=== PATIENT | female | born 1940 | race Caucasian/White ===

== ENCOUNTER → 2022-08-15 | Outpatient (CLI) | payer MEDICARE, SELFPAY ==
[2022-08-15 13:02] LABS: Troponin-I HS 7 pg/mL (3.0-54.0)
== END | disposition home or self-care (01) ==
PROVIDERS: PCP Family Medicine
DX: R07.9 Chest pain, unspecified (principal)
CPT/HCPCS: 84484

== ENCOUNTER → 2022-11-15 | Outpatient (CLI) | payer MEDICARE, SELFPAY ==
[2022-11-15 15:02] LABS: Erythrocyte Sedimentation Rate 16 mm/hr (0-30)
[2022-11-15 15:21] LABS: AST(SGOT) 19 U/L (15-37); Alanine Aminotransfer ALT/SGPT 24 U/L (13-56); Albumin, Serum 3.7 g/dL (3.2-5.0); Alkaline Phosphatase 47 U/L (45-117); Anion Gap 5 (5-15); BUN 22 mg/dL (7-18); CRP < 2.90 mg/L (0.0-3.0); Calcium,Total 9.5 mg/dL (8.5-10.1); Chloride 107 mmol/L (98-107); Creatinine, Serum 1.05 mg/dL (0.55-1.02); EST Glomerular Filtration Rate 53 mL/min (>60); Est Glom Filt Rate - Afr Amer 64 mL/min (>60); Ferritin 105 ng/mL (8-252); Globulin 3.7 g/dL (2.2-4.2); Glucose 85 mg/dL (74-106); LDH 182 U/L (84-246); Potassium 4.4 mmol/L (3.5-5.1); Protein, Total 7.4 g/dL (6.4-8.2); Sodium Level 139 mmol/L (136-145); Thyroid Stim Hormone (TSH) 1.82 uIU/mL (0.358-3.74)
[2022-11-19 15:08] LABS: Endomysial Antibody IgA Negative (Negative); Immunoglobulin A 295 mg/dL (64-422); Perinuclear Ab (P-ANCA) <1:20 titer (Neg:<1:20); t-Transglutaminase IgA 4 U/mL (0-3)
== END | disposition home or self-care (01) ==
LOC: LAB 13:51
PROVIDERS: PCP Family Medicine; Referring Provider Internal Medicine Gastroenterology; Visit Provider Internal Medicine Gastroenterology
DX: R14.0 Abdominal distension (gaseous) (principal); I10 Essential (primary) hypertension
CPT/HCPCS: 36415; 80053; 82728; 82784; 83516; 83615; 84443; 85652; 86140; 86255; 86256

== ENCOUNTER → 2022-11-18 | Outpatient (CLI) | payer MEDICARE, SELFPAY ==
[2022-11-25 05:06] LABS: Pancreatic Elastase, Fecal 74 (>200)
[2022-11-28 00:07] LABS: Calprotectin, Stool 83 ug/g (0-120); Fats, Neutral Normal (.); Fats, Total Increased (.)
== END | disposition home or self-care (01) ==
LOC: LABSPEC 12:21
PROVIDERS: PCP Family Medicine; Referring Provider Internal Medicine Gastroenterology; Visit Provider Internal Medicine Gastroenterology
DX: R14.0 Abdominal distension (gaseous) (principal); R19.7 Diarrhea, unspecified; K58.9 Irritable bowel syndrome, unspecified
CPT/HCPCS: 82274; 82653; 82705; 83630; 83993; 87177; 87209; 87329; 87493; 87506

== ENCOUNTER → 2022-12-30 | Outpatient (CLI) | payer MEDICARE, SELFPAY ==
--- NOTE | 2022-12-30 13:15 | CT_ITS ---
STUDY: CT ABDOMEN AND PELVIS WITH CONTRAST REASON FOR EXAM: Female, 82 years old. Rule out Hiatal Hernia RADIATION DOSAGE (If Supplied By Facility): CTDIvol = ( 16.50 ) mGy, DLP = ( 927.38 ) mGycm TECHNIQUE: Transaxial images were obtained from the dome of the diaphragm to the symphysis pubis without oral contrast. Oral and amp; IV Readi-CAT and amp; 100mL Isovue-300 was administered. Sagittal and coronal images were reconstructed. Individualized dose optimization techniques were used for this CT. COMPARISON: None. FINDINGS: Mild fibrotic changes in the lung bases. Mild cardiomegaly. Small effusion. Normal liver. Normal gallbladder. Distended common bile duct measuring 1.2 cm across, correlate with liver function tests. Normal spleen. Normal pancreas. Normal bilateral adrenal glands. No acute abnormalities of the kidneys. Numerous left renal cysts, measuring as much as 8 cm across. Normal visualized stomach. Normal small intestine. Normal colon. There is non-visualization of the appendix. Normal abdominal aorta. Normal inferior vena cava. Normal retroperitoneum. Prominent prolapse of the urinary bladder. There is absence of the uterus consistent with a prior hysterectomy. Normal abdominal wall. There are diffuse degenerative changes of the visualized lumbar spine. Mild scoliosis to the left. CT/Abdomen/Pelvis WITH Contrast IMPRESSION: Prominent bladder prolapse. Dilated common bile duct for which correlation with liver function tests recommended. Electronically Signed: Gaurang Jay MD at 22:42 EDT ,
== END | disposition home or self-care (01) ==
LOC: CT 13:14
PROVIDERS: PCP Family Medicine; Referring Provider Internal Medicine Gastroenterology; Visit Provider Internal Medicine Gastroenterology
DX: R14.0 Abdominal distension (gaseous) (principal); R07.9 Chest pain, unspecified
CPT/HCPCS: 74177; Q9967

== ENCOUNTER 2023-01-29 15:16 | Emergency (ER) | payer MEDICARE, SELFPAY ==
[2023-01-29 15:17] VITALS: BP 153/75; PULSE 52; RESP 12; TEMP 36.6; O2SAT 96; BMI 30.2
--- NOTE | 2023-01-29 15:31 | ED.VIS.CHEST ---
HPI History of Present Illness Chief Complaint: Weakness Narrative Narrative: 82-year-old female presenting with pain that she had between her shoulder blades after her stress test today. She states that she had a stress test today because she was sent by Dr. Bhatt. She reports that she has not had any chest pain for months but has had on and off chest pain for years. She has always had lower back pain but upper back pain started after the stress test. I asked her if her stress test went well and she states she thinks so but she was short of breath and having the back pain afterwards. I asked her if she told anybody that she was experiencing the symptoms and she cannot recall if she did or did not. I asked her if the person performing the stress test expressed any concern and she cannot recall if she did or did not. She states that she believes it was due to the contrast dye, but cannot remember having a conversation about whether or not that was an issue. She says she was sent home. She developed a headache and felt very tired after her stress test. The back pain that she had in the center of her back lasted about 2-1/2 hours it is now gone. She has not had a fever. She does not feel nauseous. She denies lightheadedness or dizziness. She states she feels well but her family member took her blood pressure and told her she needed to the emergency room so they called 911. [facility] Medical History Acute gastritis without mention of hemorrhage Age related cataract Arthritis of both knees Backache Diverticulosis Elevated hemoglobin A1c Epigastric pain GERD (gastroesophageal reflux disease) Hypoglycemia IBS (irritable bowel syndrome) Low vitamin B12 level Macular degeneration, left eye Numbness and tingling of right leg Overactive bladder Upper abdominal pain Home Medications metoprolol tartrate 25 mg tablet 25 mg PO DAILY 08/14/14 [History Last Taken Unknown] albuterol sulfate 90 mcg/actuation aerosol inhaler (Ventolin HFA) 18 g IH 4X/DAY PRN PRN sob ##1 08/15/14 [Rx Last Taken Unknown] azithromycin 500 mg tablet (Zithromax) 500 mg PO DAILY #5 tabs 08/15/14 [Rx Last Taken Unknown] zolpidem 5 mg tablet 5 mg PO QHS PRN PRN insomnia ##14 08/15/14 [Rx Last Taken Unknown] cyanocobalamin (vitamin B-12) 500 mcg tablet 500 mcg PO DAILY 09/04/22 [History Last Taken Unknown] doxazosin 1 mg tablet 1 mg PO DAILY 09/04/22 [History Last Taken Unknown] lisinopril 40 mg tablet 40 mg PO DAILY 09/04/22 [History Last Taken Unknown] meloxicam 15 mg tablet 15 mg PO DAILY 09/04/22 [History Last Taken Unknown] omeprazole 40 mg capsule,delayed release 40 mg PO DAILY 09/04/22 [History Last Taken Unknown] rosuvastatin 20 mg tablet 20 mg PO DAILY 09/04/22 [History Last Taken Unknown] tolterodine 4 mg capsule,extended release 24 hr (Detrol LA) 4 mg PO DAILY 09/04/22 [History Last Taken Unknown] gxbqrq-[id number]-wxyuzin 36,000-114,000-180,000 unit capsule,delay rel (Creon) 2 cap PO TID 4 weeks #168 caps 01/08/23 [Rx Last Taken Unknown] doxazosin 2 mg tablet 2 mg PO DAILY 01/29/23 [History Last Taken Unknown] Allergy/AdvReac Type Severity Reaction Status Date / Time adhesive tape Allergy Intermediate Other Verified 09/04/22 14:25 codeine Allergy Hives Verified 09/04/22 14:25 Surgical History S/P anterior colporrhaphy S/P total abdominal hysterectomy Social History Smoking Status: Former smoker quit date: 08/13/14 pack-years: 1 alcohol intake: never ROS ROS ED Constitutional Constitutional ED: Denies chills or fever(s) Eyes Eyes: Denies blurry vision or change in vision ENT ENT ED: Denies rhinorrhea or sore throat Cardiovascular Cardiovascular: Denies chest pain Respiratory/Chest Respiratory/Chest: Denies cough or dyspnea Gastrointestinal Gastrointestinal: Denies abdominal pain, nausea or vomiting Genitourinary Genitourinary ED: Denies dysuria or hematuria Integumentary Denies abscess or Abrasions Neurologic Neurologic: Reports headache(s); Denies paresthesias or weakness Psychiatric Psychiatric: Denies anxiety or depression EXAM Physical Exam Const Vital Signs: 01/29/23 15:17 01/29/23 15:32 01/29/23 18:32 Temperature 97.8 F Temperature Source Temporal Pulse Rate 52 L 52 L Respiratory Rate 12 18 Blood Pressure 153/75 H 138/70 H Blood Pressure Mean 101 Pulse Ox 96 Oxygen Delivery Method Room Air Room Air Positive well nourished General Appearance ED: NAD HEENT Reports moist mucous membranes Eyes PERRL and EOMs intact bilaterally Neck no lymphadenopathy Chest Wall inspection of chest normal and palpation of chest normal Resp normal respiratory effort and clear to auscultation bilaterally Auscultation: Negative for rales, rhonchi or wheezes Cardio regular rate and regular rhythm Extremity normal to inspection Neuro oriented x3 and CN's II-XII intact bilaterally Sensorium / Orientation: awake and alert Psych mental status grossly normal Skin no rashes or lesions noted and no wounds Heart Score History: Slightly/Non-Suspicious ECG: Normal Age: >/= 65 years Risk Factors: >/= 3 Risk Factors or History of CAD Score: 4 MDM MDM MDM Narrative Medical decision making narrative: Differential includes acute coronary syndrome, CHF, pneumonia, hypertension, anemia, dehydration, electrolyte abnormalities, allergic reaction to contrast dye. CBC was obtained to assess white blood cell count, hemoglobin, platelets. BMP to assess renal function, electrolytes, glucose. High-sensitivity troponin and EKG to assess for ischemia. BNP to assess for CHF. Chest x-ray was obtained to rule out pneumonia or CHF. This was negative on my interpretation. EKGWas normal sinus rhythm with a ventricular rate of 60 bpm without sign of ischemic change or ectopy on my interpretation. CBC and BMP are unremarkable. High-sensitivity troponin 6 and delta troponin 6 therefore there is no significant interval change. BNP within normal limits. After discussion with the patient at length and family they believe they might have an some kind of reaction to the contrast dye earlier I do not see any evidence of allergic reaction. Her creatinine was slightly elevated today. Patient is safe for discharge home at this point. I did review her stress test which was normal earlier. Return precautions were discussed. Impression: 1. Weakness 2. Headache Lab Data Attestation: I reviewed the patient's lab results. Labs: Laboratory Results - last 24 hr 01/29/23 01/29/23 15:30 17:30 WBC 9.2 RBC 4.80 Hgb 13.9 Hct 42.3 MCV 88.1 MCH 29.0 MCHC 32.9 RDW Std Deviation 44.1 H RDW Coeff of Betty 13.6 Plt Count 234 MPV 10.3 Immature Gran % (Auto) 1.500 H Neut % (Auto) 68.3 Lymph % (Auto) 18.9 L Kinney % (Auto) 8.6 Eos % (Auto) 2.4 Baso % (Auto) 0.3 Absolute Neuts (auto) 6.3 Absolute Lymphs (auto) 1.74 Nucleated RBC % 0 Sodium 137 Potassium 4.6 Chloride 102 Carbon Dioxide 29.0 Anion Gap 6 BUN 35 H Creatinine 1.10 H Estim Creat Clear Calc 30.65 Est GFR (MDRD) Af Amer 61 Est GFR (MDRD) Non-Af 50 L BUN/Creatinine Ratio 31.8 H Glucose 113 H Calcium 9.4 Troponin I High Sens 6 6 B-Natriuretic Peptide 49.3 Radiography Diagnostic Testing: Clinical Impression(s) from Imaging Studies Chest X-Ray 01/29/23 15:51 IMPRESSION: No radiographic evidence of acute cardiopulmonary disease. Electronically Signed: Krupa Elaine MD at 16:32 EDT , Discharge Plan Triage Chief Complaint: Weakness ED Provider: Flynn Castillo Dx/Rx/DC Orders Instructions: ED Weakness (Uncertain Cause) Prescriptions: No Action rosuvastatin 20 mg tablet 20 mg PO DAILY tolterodine [Detrol LA] 4 mg capsule,extended release 24hr 4 mg PO DAILY doxazosin 1 mg tablet 1 mg PO DAILY cyanocobalamin (vitamin B-12) 500 mcg tablet 500 mcg PO DAILY meloxicam 15 mg tablet 15 mg PO DAILY Hold Instructions: Order Completed omeprazole 40 mg capsule,delayed release(DR/EC) 40 mg PO DAILY lisinopril 40 mg tablet 40 mg PO DAILY metoprolol tartrate 25 MG tablet 25 mg PO DAILY Patient Comments: heart azithromycin [Zithromax] 500 MG tablet 500 mg PO DAILY Qty: 5 0RF Hold Instructions: Order Completed Patient Comments: antibiotic albuterol sulfate [Ventolin HFA] 18 GM HFA aerosol inhaler 18 g IH 4X/DAY PRN PRN (Reason: sob) Qty: 1 0RF Hold Instructions: Order Completed Patient Comments: shortness of breath zolpidem 5 MG tablet 5 mg PO QHS PRN PRN (Reason: insomnia) Qty: 14 0RF Hold Instructions: Order Completed Patient Comments: sleep doxazosin 2 mg tablet 2 mg PO DAILY Patient Comments: TAKE 1 TABLET BY MOUTH EVERY DAY Creon 36,000-114,000- 180,000 unit capsule,delayed release(DR/EC) 2 cap PO TID 28 Days Qty: 168 4RF Rx Instructions: administer with meals and/or snacks Primary Care Provider: Dustin Bhatt Referrals: Dustin Bhatt MD [Primary Care Provider] - Disposition Disposition: Home, Self Care Discharge Date/Time: 01/29/23 18:36
[2023-01-29 15:43] LABS: Absolute Lymphocyte Count 1.74 X10^3/uL (0.83-4.51); Absolute Neutrophil Count 6.3 X10^3/uL (2.0-7.7); Basophil# 0.03 X10^3/uL; Basophil% 0.3 % (0-1); Eosinophil# 0.22 X10^3/uL; Eosinophils% 2.4 % (0-5); Hematocrit 42.3 % (37-47); Hemoglobin 13.9 g/dL (12.0-15.0); Lymphocyte # 1.74 X10^3/ul (0.83-4.51); Lymphocyte % 18.9 % (19-41); Mean Corp Hgb Conc 32.9 g/dL (32-36); Mean Corpuscular Volume 88.1 fL (81-99); Mean Platelet Vol. 10.3 fl (6.2-12.0); Monocyte# 0.79 X10^3/uL; Monocyte% 8.6 % (0-10); NRBC Flagged by Analyzer 0 % (0-5); Neutrophil # 6.27 X10^3/uL (2.7-7.7); Neutrophil % 68.3 % (47-70); Platelet Count 234 K/mm3 (150-450); RBC Distribution Width CV 13.6 % (11.6-14.6); RBC Distribution Width SD 44.1 fl (35.1-43.9); White Blood Count 9.2 K/mm3 (4.4-11.0)
[2023-01-29] MEDS: Aspirin 81 MG TAB.CHEW 324 MG PO (15:47)
--- NOTE | 2023-01-29 15:51 | RAD_ITS ---
INDICATION: chest pain EXAMINATION/TECHNIQUE: X-RAY - XR Chest 1 View COMPARISON: Aug 14 2014 FINDINGS: LINES/DEVICES: None. LUNGS: Subsegmental atelectasis in the lung bases more prominent in the left lower lobe. MEDIASTINUM AND CARDIOVASCULAR STRUCTURES: Cardiac silhouette not enlarged. Central airways and mediastinal contour are unremarkable. BONES AND SOFT TISSUES: Unremarkable. RAD/Chest 1 View (Portable) IMPRESSION: No radiographic evidence of acute cardiopulmonary disease. Electronically Signed: Krupa Elaine MD at 16:32 EDT ,
[2023-01-29 16:04] LABS: Anion Gap 6 (5-15); BUN 35 mg/dL (7-18); BUN/Creat Ratio 31.8 RATIO (10-20); Calcium,Total 9.4 mg/dL (8.5-10.1); Chloride 102 mmol/L (98-107); EST Glomerular Filtration Rate 50 mL/min (>60); Est Glom Filt Rate - Afr Amer 61 mL/min (>60); Estimated Creatinine Clearance 30.65 ml/min; Glucose 113 mg/dL (74-106); Potassium 4.6 mmol/L (3.5-5.1); Sodium Level 137 mmol/L (136-145); Troponin-I HS (w/2H Reflex) 6 pg/mL (3.0-54.0)
[2023-01-29 16:08] LABS: BNP,B-Type NATRIURETIC PEPTIDE 49.3 pg/mL (0-100)
[2023-01-29 17:38] LABS: Reflex Troponin-HS? (from REC) Y
--- NOTE | 2023-01-29 17:51 | ED.RN ---
THIS NURSE WENT IN AND TALKED WITH PT AND FAMILY. THEY HAD VOICED CONCERNS TO [employer]. FIRST THEY REQUESTED ANOTHER DR AND IT WAS DISCUSSED REGARDING THEIR CONCERNS. EXPLAINED TEST AND PROCESSES WITH IN THE DEPARTMENT AND THE OBSTACLES AND DELAYS THAT OCCUR. EXPLAINED THE NURSE DID COME DRAW THE TROPONIN SOON SHE WAS ABLE. FAMILY AND PT SEEMED TO BE ACCEPTING AND MORE UNDERSTANDING AFTER THE DISCUSSION. PT IS RESTING WITH NO DISTRESS BUT STATES SHE DOES WANT TO GO HOME. AGAIN EXPLAINED THE REMAINING TEST RESULT WE ARE WAITING FOR AND PT VERBALIZED UNDERSTANDING
[2023-01-29 18:08] LABS: Troponin-I HS 6 pg/mL (3.0-54.0)
[2023-01-29 18:32] VITALS: BP 138/70; PULSE 52; RESP 18
== END 2023-01-29 18:36 | disposition home or self-care (01) ==
PROVIDERS: Emergency Provider Student in an Organized Health Care Education/Training Program; PCP Family Medicine; Visit Provider Student in an Organized Health Care Education/Training Program
DX: R53.1 Weakness (principal); I20.9 Angina pectoris, unspecified; R51.9 Headache, unspecified; R06.02 Shortness of breath; R07.9 Chest pain, unspecified; R00.2 Palpitations; Z87.891 Personal history of nicotine dependence; Z79.899 Other long term (current) drug therapy
CPT/HCPCS: 71045; 78452; 80048; 83880; 84484; 85025; 93005; 93017; 99285; A9500; A4216; J2785

== ENCOUNTER → 2023-01-29 | Outpatient (CLI) | payer MEDICARE, SELFPAY ==
--- NOTE | 2023-01-29 14:32 | STRESSREP ---
Stress Test Report Date: 01/29/2023 Procedure: Pharmacologic stress nuclear imaging study Indications: Chest pain Consent: Per the patient Procedure: The patient underwent pharmacologic (Regadenoson 0.4mg ) evaluation with a peak heart rate of 83 beats per minute (60%predicted maximal heart rate) and a peak blood pressure of 140/82 mmHg. The baseline ECG demonstrated sinus rhythm. The peak pharmacologic ECG demonstrated no ischemic change. There were no cardiac dysrhythmias pretest, during pharmacologic infusion, or recovery. There was no complaint of chest discomfort during pharmacologic infusion or recovery. The patient was injected with 14 millicuries of technetium 99m Cardiolite and subsequently rest SPECT Cardiolite nuclear imaging was obtained in the horizontal long, vertical long, and short axis views. The patient underwent pharmacologic (Regadenoson) evaluation. The patient was injected with 43.8 millicuries of technetium 99m Cardiolite and subsequently stress SPECT Cardiolite nuclear imaging was obtained in the horizontal long, vertical long, and short axis views. A gated Cardiolite study at peak stress was obtained. The examination was stopped secondary to completion of protocol. Rest and stress SPECT Cardiolite nuclear imaging status post realignment, normalization, and attenuation correction demonstrate no fixed or reversible perfusion defects. Possible left ventricular hypertrophy. Small LV cavity.. There is end systolic thickening and brightening. The gated Cardiolite study demonstrates myocardial thickening and inward wall motion. The reported LVEF is 74%. Impression: 1. Pharmacologic (Regadenoson) evaluation 2. Peak pharmacologic ECG with no ischemic changes. 3. There were no cardiac dysrhythmias pretest, during pharmacologic infusion, or recovery. 5. No fixed or reversible perfusion defects. Possible left ventricular hypertrophy. Small LV cavity.. 6. The gated Cardiolite study reports an LVEF of 74%. This note was generated with [employer] software. It may contain incorrect words, spelling, and punctuation that were not noted in checking the note before signing.
== END | disposition home or self-care (01) ==
LOC: CVS 07:21
PROVIDERS: PCP Family Medicine; Referring Provider Family Medicine; Visit Provider Family Medicine
DX: R06.02 Shortness of breath (principal); I20.9 Angina pectoris, unspecified; R07.9 Chest pain, unspecified; R00.2 Palpitations
CPT/HCPCS: 78452; 93017; A9500; A4216; J2785

== ENCOUNTER → 2024-01-06 | Outpatient (CLI) | payer MEDICARE, MEDICAID, SELFPAY ==
--- NOTE | 2024-01-08 15:26 | STRESSREP_ITS ---
Stress Test Report Date: 01/06/2024 Procedure: Pharmacologic stress nuclear imaging study Indications: Chest pain Consent: Per the patient Procedure: The patient underwent pharmacologic (Regadenoson) evaluation with a peak heart rate of 73 beats per minute (53%predicted maximal heart rate) and a peak blood pressure of 138/86 mmHg. The baseline ECG demonstrated normal sinus rhythm. EKG during lexiscan infusion revealed no significant ischemic changes. EKG post infusion revealed no significant ischemic changes [There were no cardiac dysrhythmias pretest, during pharmacologic infusion, or recovery]. [There was no complaint of chest discomfort during pharmacologic infusion or recovery]. The examination was discontinued secondary to completion of protocol. Impression: 1. Lexiscan stress test test is negative for Lexiscan infusion induced EKG changes of ischemia. 2. Lexiscan stress test test is negative for Lexiscan infusion induced chest pain. 3. Results of the nuclear portion of the test is as below Myocardial perfusion imaging study: Technique: The patient was injected with 12 millicuries of technetium 99m Cardiolite and subsequently rest SPECT Cardiolite nuclear imaging was obtained in the horizontal long, vertical long, and short axis views. The patient underwent pharmacologic [Regadenoson 0.4mg] evaluation. Please see above for details. The patient was injected with 34.9 millicuries of technetium 99m Cardiolite and subsequently stress SPECT Cardiolite nuclear imaging was obtained in the horizontal long, vertical long, and short axis views. A gated Cardiolite study at peak stress was obtained. Interpretation: Rest and stress SPECT Cardiolite nuclear imaging status post realignment, normalization, and attenuation correction demonstrate no evidence of significant ischemia or infarction. Gated images reveal no significant regional wall motion abnormalities. The reported LVEF is greater than 70%. Impression: 1. There is no evidence of significant ischemia or infarction. 2. Estimated ejection fraction is greater than 70%. This note was generated with [employer] software. It may contain incorrect words, spelling, and punctuation that were not noted in checking the note before signing.
== END | disposition home or self-care (01) ==
PROVIDERS: PCP Family Medicine; Referring Provider Family Medicine; Visit Provider Family Medicine
DX: Z13.6 Encounter for screening for cardiovascular disorders (principal); R07.89 Other chest pain; R06.09 Other forms of dyspnea; R53.83 Other fatigue; I10 Essential (primary) hypertension
CPT/HCPCS: 78452; 93017; A9500; A4216; J2785

== ENCOUNTER → 2024-03-01 | Outpatient (CLI) | payer MEDICARE, MEDICAID, SELFPAY ==
--- NOTE | 2024-03-01 16:07 | RAD_ITS ---
EXAM: XR LEFT KNEE COMPLETE, 4 OR MORE VIEWS CLINICAL INDICATION: PAIN TECHNIQUE: Four or more views of the left knee. COMPARISON: No relevant prior studies available. FINDINGS: BONES/JOINTS: Chondrocalcinosis. Joint space narrowing. Marginal osteophytosis of the weightbearing and patellofemoral compartments. Trace joint effusion. Degenerative changes and trace joint effusion. No acute osseous findings. No subluxation. Normal alignment. No sclerotic or destructive changes observed. SOFT TISSUES: No significant abnormality. No soft tissue swelling or gas. No radiopaque foreign body. RAD/Knee 4 or More Views IMPRESSION: No acute findings in the left knee. Electronically Signed: Filiberto Flores DO at 21:45 EDT ,
--- NOTE | 2024-03-01 16:07 | RAD_ITS ---
EXAM: XR RIGHT KNEE COMPLETE, 4 OR MORE VIEWS CLINICAL INDICATION: PAIN TECHNIQUE: Four or more views of the right knee. COMPARISON: No relevant prior studies available. FINDINGS: BONES/JOINTS: Chondrocalcinosis. Joint space narrowing. Marginal osteophytosis of the weightbearing and patellofemoral compartments. Trace joint effusion. No acute fracture. No subluxation. Normal alignment. No sclerotic or destructive changes observed. SOFT TISSUES: No significant abnormality. No soft tissue swelling or gas. No radiopaque foreign body. RAD/Knee 4 or More Views IMPRESSION: Degenerative changes and trace joint effusion. No acute osseous findings. Electronically Signed: Filiberto Flores DO at 21:57 EDT ,
--- NOTE | 2024-03-01 16:07 | RAD_ITS ---
EXAM: XR BILATERAL HIPS WITH PELVIS WHEN PERFORMED, 2 VIEWS CLINICAL INDICATION: PAIN TECHNIQUE: Frontal view of the bilateral hips with pelvis when performed. COMPARISON: CT abdomen and pelvis, 12/30/2022 FINDINGS: BONES/JOINTS: Symmetric pubic bone sclerosis. Mild acetabular hypertrophy and sclerosis bilaterally. Symmetric SI joint arthrosis. Degenerative changes in the lower lumbar spine. No displaced fracture. No widening of the pubic symphysis. SOFT TISSUES: No significant abnormality. No soft tissue swelling or gas. TUBES, LINES AND DEVICES: Spinal stimulator device present. RAD/Hips B/L min 2 views w/ Pelvis IMPRESSION: Degenerative changes. No acute osseous abnormalities. Electronically Signed: Filiberto Flores DO at 21:44 EDT ,
== END | disposition home or self-care (01) ==
PROVIDERS: PCP Family Medicine; Referring Provider Anesthesiology Pain Medicine; Visit Provider Anesthesiology Pain Medicine
DX: M25.551 Pain in right hip (principal); M25.552 Pain in left hip; M25.562 Pain in left knee; M25.561 Pain in right knee
CPT/HCPCS: 73521; 73564

== ENCOUNTER 2024-03-21 12:25 | Emergency (ER) | payer MEDICARE, MEDICAID, SELFPAY ==
[2024-03-21 12:28] VITALS: PULSE 58; RESP 18; TEMP 36.1; O2SAT 94; BMI 29.5
--- NOTE | 2024-03-21 12:54 | RAD_ITS ---
STUDY: X-RAY - PELVIS AND LEFT HIP REASON FOR EXAM: Female, 84 years old. Fall, pain TECHNIQUE: 3 views of the pelvis and hip. COMPARISON: 03/01/2024 FINDINGS: There is a non-specific bowel gas pattern. Normal visualized soft tissue structures. Normal bilateral iliac wings, sacroiliac joints and visualized sacrum. Normal bilateral superior and inferior pubic rami. There are degenerative changes of the pubic symphysis with articular narrowing and sclerosis. Normal bilateral ischial tuberosities. Normal visualized femoral head. Normal acetabulum. Normal hip joint. RAD/HIP, UNI W/ Pelvis 2-3 Views IMPRESSION: No acute fracture or dislocation. Electronically Signed: Clay Murphy MD at 13:58 EDT ,
--- NOTE | 2024-03-21 12:54 | RAD_ITS ---
STUDY: X-RAY - SACRUM/COCCYX REASON FOR EXAM: Female, 84 years old. Pain TECHNIQUE: 3 view(s) of the sacrum and coccyx were obtained. COMPARISON: None. FINDINGS: Normal bilateral sacroiliac joints. Normal visualized sacral ala and fused sacral bodies. Normal sacrococcygeal junction with a normal angulation. Normal coccygeal segments. The presacral soft tissue structures are unremarkable. RAD/Sacrum-Coccyx min 2 Views IMPRESSION: Normal x-rays of the sacrum and coccyx. Electronically Signed: Clay Murphy MD at 14:01 EDT ,
--- NOTE | 2024-03-21 12:56 | EDS_ITS ---
HPI HPI - Fall History of Present Illness Chief Complaint: Fall Narrative Narrative: Chief complaint and HPI: Fall. 84-year-old female presents for evaluation after mechanical fall. Patient states she was outside pulling weeds in her garden when she lost her balance and fell. She states she fell on her butt and left hip. She does have a nerve stimulator in this area for chronic back pain and bilateral lower extremity pain. Patient states that she hit her life alert button and EMS arrived. Patient endorses pain in her left buttocks and slightly into the hip. She denies hitting her head. No neck pain. Denies any new back pain. Denies lightheadedness, syncope, shortness of breath, chest pain, abdominal pain, nausea, vomiting, diarrhea, dysuria. Patient states it was strictly a mechanical fall. Review of systems: See HPI Medications: As listed on the chart Allergies: As listed on the chart PFSH: Per chart Vital signs: As listed on the chart. Reviewed. Physical exam: Gen: A&O x3, NAD Head: Normocephalic, atraumatic Eyes: No sclera icterus, conjunctiva clear, PERRL, EOMI ENT: Moist oist mucous membranes Neck: Trachea midline, No JVD, Nontender, full range of motion CV: RRR, no murmurs, no chest wall TTP Resp: Lungs CTA BL, no w/r/c GI: Abd soft, non-distended, non-tender, no r/r/g Musc: Moves all extremity, no deformity, no spinal TTP, no corry step-offs, tender to palpation in the area of the tailbone as well as left gluteal muscle, neurostimulator is palpated in this area, she has mild tenderness in the left hip with movement of the left lower extremity, nontender and no pain with movement of the bilateral knees, DP/PT pulses plus 2 out of 4 Skin: Warm, dry, intact Neuro: Alert, oriented, grossly intact, sensation intact, GCS 15 Psych: Cooperative, appropriate mood and affect [facility] Medical History Acute gastritis without mention of hemorrhage Age related cataract Arthritis of both knees Backache Diverticulosis Elevated hemoglobin A1c Epigastric pain GERD (gastroesophageal reflux disease) Hypoglycemia IBS (irritable bowel syndrome) Low vitamin B12 level Macular degeneration, left eye Numbness and tingling of right leg Overactive bladder Upper abdominal pain Home Medications ?Medication ?Instructions ?Recorded ?Last Taken ?Type metoprolol tartrate 25 mg tablet 25 mg PO DAILY 08/14/14 Unknown History albuterol sulfate 90 mcg/actuation 18 g IH 4X/DAY PRN PRN sob ##1 08/15/14 Unknown Rx aerosol inhaler (Ventolin HFA) azithromycin 500 mg tablet 500 mg PO DAILY #5 tabs 08/15/14 Unknown Rx (Zithromax) zolpidem 5 mg tablet 5 mg PO QHS PRN PRN insomnia ##14 08/15/14 Unknown Rx cyanocobalamin (vitamin B-12) 500 500 mcg PO DAILY 09/04/22 Unknown History mcg tablet doxazosin 1 mg tablet 1 mg PO DAILY 09/04/22 Unknown History lisinopril 40 mg tablet 40 mg PO DAILY 09/04/22 Unknown History meloxicam 15 mg tablet 15 mg PO DAILY 09/04/22 Unknown History omeprazole 40 mg capsule,delayed 40 mg PO DAILY 09/04/22 Unknown History release rosuvastatin 20 mg tablet 20 mg PO DAILY 09/04/22 Unknown History tolterodine 4 mg capsule,extended 4 mg PO DAILY 09/04/22 Unknown History release 24 hr (Detrol LA) doxazosin 2 mg tablet 2 mg PO DAILY 01/29/23 Unknown History xqonsa-zeusinyk-dfjiphj 1 cap PO TID 1 month #100 caps 03/16/24 Unknown Rx 36,000-114,000-180,000 unit capsule,delay rel (Creon) Allergy/AdvReac Type Severity Reaction Status Date / Time adhesive tape Allergy Intermediate Other Verified 09/04/22 14:25 codeine Allergy Hives Verified 09/04/22 14:25 Surgical History S/P anterior colporrhaphy S/P total abdominal hysterectomy Social History Smoking Status: Former smoker quit date: 08/13/14 pack-years: 1 alcohol intake: never EXAM Physical Exam Const Vital Signs: 03/21/24 12:28 03/21/24 12:42 03/21/24 14:57 Temperature 97 F L 98.1 F Temperature Source Oral Pulse Rate 58 L 81 Respiratory Rate 18 16 Respiratory Effort Normal Respiratory Depth Normal Respiratory Pattern Normal Blood Pressure 127/54 H Blood Pressure Mean 78 Pulse Ox 94 100 Oxygen Delivery Method Room Air Room Air MDM MDM MDM Narrative Medical decision making narrative: 84-year-old female with history of HTN, HLD, GERD presents for evaluation of mechanical fall. She endorses left gluteal and hip pain. Denies pain or injury elsewhere. Vitals are stable other than bradycardia, patient has a history of bradycardia on chart review as well as she is on metoprolol. Patient denies any symptoms and states that this was purely a mechanical fall therefore I do not think any laboratory workup is needed at this time. Will obtain x-ray of the pelvis, hip, coccyx. Patient declined any pain medication. Three-view x-ray of the left pelvis and hip without dislocation or fracture. 3 view x-ray of the sacrum and coccyx without fracture or dislocation. X-rays were interpreted by me, EM physician. Patient's symptoms are likely secondary to contusion. Patient was updated of all results and confirmed understanding of plan. She was able to ambulate in the emergency room without any difficulty. Patient is stable to discharge home. Tylenol and ibuprofen as needed for pain. Follow-up with PCP. She confirmed understand plan. Return precautions explained. Impression: 1. Left hip contusion 2. Left gluteal contusion 3. Mechanical fall Radiography Diagnostic Testing: Clinical Impression(s) from Imaging Studies Hip/Pelvis X-Ray 03/21/24 12:54 IMPRESSION: No acute fracture or dislocation. Electronically Signed: Clay Murphy MD at 13:58 EDT Reading Location ID and State: [id number] Tel , Service support , Sacrum and Coccyx X-Ray 03/21/24 12:54 IMPRESSION: Normal x-rays of the sacrum and coccyx. Electronically Signed: Clay Murphy MD at 14:01 EDT , Discharge Plan Triage Chief Complaint: Fall ED Provider: Phani Alex Dx/Rx/DC Orders Clinical Impression: Contusion of hip, left, Coccygeal contusion Instructions: ED Soft Tissue Contusion, ED Coccyx or Sacrum Contusion, ED Fall Prevention Prescriptions: No Action rosuvastatin 20 mg tablet 20 mg PO DAILY tolterodine [Detrol LA] 4 mg capsule,extended release 24hr 4 mg PO DAILY doxazosin 1 mg tablet 1 mg PO DAILY cyanocobalamin (vitamin B-12) 500 mcg tablet 500 mcg PO DAILY meloxicam 15 mg tablet 15 mg PO DAILY omeprazole 40 mg capsule,delayed release(DR/EC) 40 mg PO DAILY lisinopril 40 mg tablet 40 mg PO DAILY metoprolol tartrate 25 MG tablet 25 mg PO DAILY Patient Comments: heart azithromycin [Zithromax] 500 MG tablet 500 mg PO DAILY Qty: 5 0RF Patient Comments: antibiotic albuterol sulfate [Ventolin HFA] 18 GM HFA aerosol inhaler 18 g IH 4X/DAY PRN PRN (Reason: sob) Qty: 1 0RF Patient Comments: shortness of breath zolpidem 5 MG tablet 5 mg PO QHS PRN PRN (Reason: insomnia) Qty: 14 0RF Patient Comments: sleep doxazosin 2 mg tablet 2 mg PO DAILY Patient Comments: TAKE 1 TABLET BY MOUTH EVERY DAY Creon 36,000-114,000- 180,000 unit capsule,delayed release(DR/EC) 1 cap PO TID 30 Days Qty: 100 4RF Primary Care Provider: Dustin Bhatt Referrals: Dustin Bhatt MD [Primary Care Provider] - 3-5 Days Print Language: [place] Disposition Disposition: Home, Self Care Discharge Date/Time: 03/21/24 14:58
[2024-03-21 14:57] VITALS: BP 127/54; PULSE 81; RESP 16; TEMP 36.7; O2SAT 100
== END 2024-03-21 14:58 | disposition home or self-care (01) ==
PROVIDERS: Emergency Provider Surgery; PCP Family Medicine; Visit Provider Surgery
DX: S70.02XA Contusion of left hip, initial encounter (principal); S30.0XXA Contusion of lower back and pelvis, initial encounter; W01.0XXA Fall on same level from slipping, tripping and stumbling without subsequent striking against object, initial encounter; I10 Essential (primary) hypertension; E78.5 Hyperlipidemia, unspecified; R00.1 Bradycardia, unspecified; E53.8 Deficiency of other specified B group vitamins; K21.9 Gastro-esophageal reflux disease without esophagitis; M17.0 Bilateral primary osteoarthritis of knee; M54.9 Dorsalgia, unspecified; M79.604 Pain in right leg; M79.605 Pain in left leg; G89.29 Other chronic pain; Z97.8 Presence of other specified devices; Z87.891 Personal history of nicotine dependence; Z79.899 Other long term (current) drug therapy
CPT/HCPCS: 72220; 73502; 99282

== ENCOUNTER 2024-11-29 16:39 | Observation (INO) | payer MEDICARE, MEDICAID, SELFPAY ==
[2024-11-29] VITALS (11 sets, daily range): BP systolic 123–162; BP diastolic 63–108; PULSE 63–73; RESP 14–22; TEMP 36.6–37.2; O2SAT 87–96; BMI 27.9; BMI 27.8
--- NOTE | 2024-11-29 17:06 | EKG12_ITS ---
Test Reason : sob Blood Pressure : */* mmHG Vent. Rate : 71 BPM Atrial Rate : 71 BPM P-R Int : 188 ms QRS Dur : 82 ms QT Int : 406 ms P-R-T Axes : 32 -23 98 degrees QTcB Int : 441 ms Normal sinus rhythm abnromal ecg Reconfirmed by MOLINA ADAME, BRADFORD ([id number]), visual effects editor ARNALDO ROSALES ([id number]) on 11/30/2024 11:17:27 AM Referred By: Adarsh Ross Confirmed By: BRADFORD AUGUSTE MD
--- NOTE | 2024-11-29 17:07 | EX.ED.DYSGE1 ---
HPI History of Present Illness Chief Complaint: Shortness of Breath Narrative Narrative: 84-year-old female presents with her granddaughter and grandson with multiple somatic complaints but mainly cough and shortness of breath that she has had for a few weeks. She also states that she has had nausea and vomiting. She had generalized weakness as well. Her granddaughter states that yesterday she called the squad because patient was wrapped up in a blanket all day even though was 90 degrees outside, and she did not want to eat or drink. She basically stayed in bed. She did not come to the hospital because although her granddaughter is the [employer] for medical, patient refused and is not incapacitated. Her granddaughter is also concerned because she has had a cough for few weeks, and reportedly EMS heard crackles in the base of her lung. She states that she is on a pill to make her urinate, but she does not go is much as she has been in the past. [facility] Medical History Numbness and tingling of right leg Epigastric pain Overactive bladder Macular degeneration, left eye Low vitamin B12 level IBS (irritable bowel syndrome) Hypoglycemia GERD (gastroesophageal reflux disease) Elevated hemoglobin A1c Diverticulosis Backache Arthritis of both knees Age related cataract Acute gastritis without mention of hemorrhage Upper abdominal pain Home Medications ?Medication ?Instructions ?Recorded ?Last Taken ?Type cyanocobalamin (vitamin B-12) 500 500 mcg PO DAILY 09/04/22 11/29/24 History mcg tablet omeprazole 40 mg capsule,delayed 40 mg PO DAILY 09/04/22 11/29/24 History release rosuvastatin 20 mg tablet 20 mg PO DAILY 09/04/22 11/28/24 History tolterodine 4 mg capsule,extended 4 mg PO DAILY 09/04/22 11/29/24 History release 24 hr (Detrol LA) doxazosin 2 mg tablet 2 mg PO DAILY 01/29/23 11/29/24 History lisinopril 40 mg tablet 40 mg PO BID 03/25/24 11/29/24 History iytizn-wdgbsvxk-lpjzwnq 2 cap PO QAC #300 caps 07/14/24 11/29/24 Rx 36,000-114,000-180,000 unit capsule,delay rel (Creon) ondansetron HCl 4 mg tablet 4 mg PO Q6H PRN #30 tabs 11/23/24 11/29/24 Rx loratadine 10 mg tablet 10 mg PO DAILY 11/29/24 11/29/24 History metoprolol succinate 100 mg 100 mg PO DAILY 11/29/24 11/29/24 History tablet,extended release 24 hr Allergy/AdvReac Type Severity Reaction Status Date / Time adhesive tape Allergy Intermediate Other Verified 11/29/24 16:40 codeine Allergy Hives Verified 11/29/24 16:40 Surgical History S/P total abdominal hysterectomy S/P anterior colporrhaphy Social History Smoking Status: Former smoker quit date: 08/13/14 pack-years: 1 alcohol intake: never ROS ROS ED ROS Narrative Review of systems positive for cough, shortness of breath, feeling cold, nausea and being weeks. Generalized weakness and malaise and fatigue. No reported fevers. Decreased urine output. Denies other symptoms. EXAM Physical Exam Narrative Exam Narrative: Afebrile. Vital signs noted. Nontoxic-appearing. Cardiovascular examination feels a regular rate and rhythm. Lungs are clear to auscultation bilaterally. Abdomen is soft and nontender with normal active bowel sounds. No guarding or rebound. Neurological examination nonfocal, nonlateralizing. No appreciable pedal edema. Const Vital Signs: 11/29/24 16:40 11/29/24 16:40 11/29/24 17:26 Temperature 99 F Temperature Source Temporal Pulse Rate 73 73 Respiratory Rate 22 H 14 Respiratory Effort Normal Non-Labored Respiratory Depth Normal Respiratory Pattern Normal Blood Pressure 130/107 H 126/108 H Blood Pressure Mean 114 114 Pulse Ox 96 92 Oxygen Delivery Method Room Air Room Air Room Air 11/29/24 18:04 11/29/24 18:07 11/29/24 19:32 Temperature 97.9 F Temperature Source Oral Pulse Rate 70 Respiratory Rate 17 Respiratory Effort Respiratory Depth Respiratory Pattern Blood Pressure 123/63 H Blood Pressure Mean 83 Pulse Ox 90 87 89 Oxygen Delivery Method Room Air Room Air Room Air 11/29/24 19:54 11/29/24 20:04 11/29/24 21:00 Temperature Temperature Source Pulse Rate 67 70 66 Respiratory Rate 14 14 20 H Respiratory Effort Respiratory Depth Respiratory Pattern Normal Blood Pressure 130/88 H 127/65 H Blood Pressure Mean 102 85 Pulse Ox 87 94 Oxygen Delivery Method Room Air Room Air 11/29/24 21:35 Temperature 98 F Temperature Source Pulse Rate 66 Respiratory Rate 14 Respiratory Effort Respiratory Depth Respiratory Pattern Blood Pressure 134/99 H Blood Pressure Mean 110 Pulse Ox 92 Oxygen Delivery Method MDM MDM MDM Narrative Medical decision making narrative: Differential diagnosis includes but not limited to pneumonia versus urinary tract infection versus dehydration versus other electrolyte abnormality. Essentially her medical screening examination is unremarkable currently. EKG was obtained and interpreted by myself independently as normal sinus rhythm at 71 bpm without ectopy or acute ST changes. No STEMI. I reviewed her laboratory work and she has normal white count of 6.1, hemoglobin 11.4, hematocrit 34.7, platelet count 275. Electrolyte panel is significant for BUN of 27 and creatinine 1.83 but in review of prior labs she has had elevation of her creatinine in the past. Glucose 113 and normal anion gap of 14. LFTs grossly unremarkable. Lipase normal at 41. Urinalysis does show 25-50 epithelial cells but she has greater than 100 WBCs. Her urine will be sent for culture and she was given a Keflex. She had transient drop in her pulse ox and does not wear oxygen at home. Chest x-ray interpreted by myself independently in 2 view shows no evidence of pneumonia, no pneumothorax. I reviewed the radiology report which confirms my independent interpretation. She has chronic pain and requested her tramadol dosing. She was given 50 mg orally. She then requested something for her cough. Upon repeat examination, she does have decreased breath sounds at the left base. She is a former smoker and quit 12 years ago. She may have undiagnosed COPD. She was given a DuoNeb aerosolized treatment as well as Solu-Medrol 60 mg intravenously. I will obtain CT of the chest. Although she has slightly elevated creatinine level of GFR, I do feel that given her hypoxia that she needs to be ruled out for pulmonary embolism. I reviewed the radiology report of the CTA of the chest and there is no pulmonary embolism, but there are emphysematous changes. Upon repeat examination, even on her 2 L of nasal cannula oxygen, when she moves about the bed, she will dip down to 90 or 88%. Once again she does not have oxygen at home. I will discuss the patient with the hospitalist for at least observation. I discussed patient with Dr. Lowery. Disposition is admit to [facility] in stable condition. History & Record Review Discussion w/independent historian: Patient and Family Lab Data Attestation: I reviewed the patient's lab results. Labs: Laboratory Results - last 24 hr 11/29/24 11/29/24 17:25 18:05 WBC 6.1 RBC 4.08 L Hgb 11.4 L Hct 34.7 L MCV 85.0 MCH 27.9 MCHC 32.9 RDW Std Deviation 41.4 RDW Coeff of Betty 13.5 Plt Count 275 MPV 9.4 Immature Gran % (Auto) 0.700 Neut % (Auto) 68.8 Lymph % (Auto) 14.4 L [place] % (Auto) 12.0 H Eos % (Auto) 3.6 Baso % (Auto) 0.5 Absolute Neuts (auto) 4.2 Absolute Lymphs (auto) 0.88 Nucleated RBC % 0 Sodium 135 Potassium 4.7 Chloride 98 Carbon Dioxide 23.2 Anion Gap 14 BUN 27 H Creatinine 1.83 H Estim Creat Clear Calc 21.30 L Est GFR (MDRD) Non-Af 27 L BUN/Creatinine Ratio 14.8 Glucose 113 H Calcium 9.4 Total Bilirubin 0.78 AST 23 ALT 11 Alkaline Phosphatase 60 Total Protein 7.2 Albumin 3.8 Globulin 3.4 Albumin/Globulin Ratio 1.1 Lipase 41 Urine Color Jaquelin Urine Clarity Turbid Urine pH 5.0 Ur Specific Dum[place] 1.020 Urine Protein 30 H Urine Glucose (UA) Normal Urine Ketones 5 H Urine Occult Blood 25 H Urine Nitrite Negative Urine Bilirubin 1 H Urine Urobilinogen 8 H Ur Leukocyte Esterase 500 H Urine RBC 0-5 SEEN Urine WBC >100 SEEN Ur Squamous Epith Cells 25-50 SEEN Urine Bacteria 3+ Hyaline Casts 5-10 SEEN Fine Granular Casts 0-5 SEEN Urine Mucus 0 SEEN Radiography Chest X-Ray - ED: 2 View, Read by ED Physician, Read by Radiologist, Cardiomegaly and No Infiltrates Diagnostic Testing: Clinical Impression(s) from Imaging Studies Chest X-Ray 11/29/24 17:30 IMPRESSION: No focal consolidations. Bibasilar subsegmental atelectasis. Stable mild cardiomegaly. Reading Location: [id number] Chest CTA 11/29/24 19:38 IMPRESSION: 1. No pulmonary embolism or acute cardiopulmonary abnormality. 2. Emphysema. Reading Location: [id number] Discharge Plan Dx/Rx/DC Orders Clinical Impression: Hypoxia, Lethargy, Emphysema/COPD, Acute kidney injury superimposed on chronic kidney disease, UTI (urinary tract infection) Disposition Disposition: Acute Care Hospital [facility]
--- NOTE | 2024-11-29 17:30 | RAD_ITS ---
PROCEDURE: CHEST PA AND LATERAL 11/29/2024 REASON FOR EXAM: SHORTNESS OF BREATH, COUGH TECHNIQUE: CHEST PA AND LATERAL COMPARISON: 01/29/2023 FINDINGS: Bibasilar subsegmental atelectasis. No focal consolidation. No pleural effusion or pneumothorax. Stable mild cardiomegaly. Calcified aortic arch. Neurostimulator device noted. No acute fracture. RAD/Chest PA and Lateral IMPRESSION: No focal consolidations. Bibasilar subsegmental atelectasis. Stable mild card iomegaly. Reading Location: [id number]
[2024-11-29 17:38] LABS: Absolute Lymphocyte Count 0.88 X10^3/uL (0.83-4.51); Absolute Neutrophil Count 4.2 X10^3/uL (2.0-7.7); Basophil# 0.03 X10^3/uL; Basophil% 0.5 % (0-1); Eosinophil# 0.22 X10^3/uL; Eosinophils% 3.6 % (0-5); Hematocrit 34.7 % (37-47); Hemoglobin 11.4 g/dL (12.0-15.0); Lymphocyte # 0.88 X10^3/ul (0.83-4.51); Lymphocyte % 14.4 % (19-41); Mean Corp Hgb Conc 32.9 g/dL (32-36); Mean Corpuscular Hgb 27.9 pg (27.0-32.0); Mean Platelet Vol. 9.4 fl (6.2-12.0); Monocyte# 0.73 X10^3/uL; NRBC Flagged by Analyzer 0 % (0-5); Neutrophil % 68.8 % (47-70); Platelet Count 275 K/mm3 (150-450); RBC Distribution Width CV 13.5 % (11.6-14.6); RBC Distribution Width SD 41.4 fl (35.1-43.9); Red Blood Count 4.08 M/mm3 (4.2-5.4); White Blood Count 6.1 K/mm3 (4.4-11.0)
[2024-11-29] MEDS: 0.9% Normal Saline (1000mL) 1,000 ML 999 ML IV (18:11)
[2024-11-29 18:12] LABS: Mucous, Urine 0 SEEN /hpf (<or=2+)
[2024-11-29 18:13] LABS: ALB/GLOB Ratio 1.1 RATIO (0.9-2.4); AST(SGOT) 23 U/L (<=31); Alanine Aminotransfer ALT/SGPT 11 U/L (<=34); Albumin, Serum 3.8 g/dL (3.4-4.8); Alkaline Phosphatase 60 U/L (35-104); Anion Gap 14 (5-15); BUN 27 mg/dL (4-19); BUN/Creat Ratio 14.8 RATIO (10-20); Calcium,Total 9.4 mg/dL (7.6-11.0); Carbon Dioxide 23.2 mmol/L (21.0-32.0); Chloride 98 mmol/L (98-108); Creatinine, Serum 1.83 mg/dL (0.70-1.20); EST Glomerular Filtration Rate 27 (>60); Globulin 3.4 g/dL (2.2-4.2); Glucose 113 mg/dL (70-99); Lipase 41 U/L (13-75); Potassium 4.7 mmol/L (3.3-5.1); Protein, Total 7.2 g/dL (5.9-8.4); Sodium Level 135 mmol/L (133-145); Total Bilirubin 0.78 mg/dL (0.00-1.30)
[2024-11-29 18:25] LABS: Color, Urine Amber (Yellow); Glucose, Dipstick Normal (Normal); Ketone-Dipstick 5 mg/dl (Negative); Leukocyte Esterase-Dipstick 500 /ul (Negative); Nitrite-Dipstick Negative (Negative); Occult Blood-Urine 25 /ul (Negative); Protein-Dipstick 30 mg/dl (Negative); Urine Clarity Turbid (Clear); Urine Urobilinogen 8 mg/dl (Normal)
[2024-11-29 18:35] LABS: Urine Bilirubin Dipstick 1 mg/dL (Negative)
[2024-11-29 18:47] LABS: Bacteria 3+ /hpf (None Seen); Red Blood Cells-Urine 0-5 SEEN /hpf (0-5); Squamous Epithelial Cells - UA 25-50 SEEN /hpf (5-10); White Blood Cells >100 SEEN /hpf (0-5)
[2024-11-29 18:49] LABS: Fine Granular Cast- Urine 0-5 SEEN /lpf (0-5); Hyaline Cast 5-10 SEEN /lpf (0-5)
[2024-11-29] MEDS: traMADol 50 MG Tablet PO (19:17)
[2024-11-29] MEDS: Cephalexin 250 MG Capsule 500 MG PO (19:30)
--- NOTE | 2024-11-29 19:38 | CT_ITS ---
PROCEDURE: CTA CHEST W/WO CONTRAST 11/29/2024 REASON FOR EXAM: HYPOXIA TECHNIQUE: CTA CHEST W/WO CONTRAST Multiplanar Sagittal and Coronal images were obtained. 3D post processing was performed CONTRAST: 75 mL Isovue 370 One or more dose reduction techniques were used (e.g., Automated exposure control, adjustment of the mA and/or kV according to patient size, use of iterative reconstruction technique). RADIATION DOSE SUMMARY: CTDlvol: 11.1 mGy DLP: 357 mGycm COMPARISON: Same day chest radiographs, CT abdomen and pelvis on 12/30/2022 FINDINGS: Hardware: Spinal stimulator leads partially imaged. Lymph nodes: No significant thoracic lymphadenopathy. Heart: No significant cardiomegaly. Mild coronary calcifications. Thoracic Aorta: Mild calcified atherosclerosis. No evidence of dissection. Pulmonary Vessels: No evidence of acute pulmonary emboli through the major subsegmental branches. Lungs and Airways: Central airways are clear. There is apical predominant emphysema. Right lower lobe calcified granulomas. Pleura: No pleural effusion. No pneumothorax. Upper Abdomen: Punctate hepatic calcifications suggestive of prior granulomatous disease. Aortic atherosclerosis. Unchanged right adrenal gland hypodense nodule measuring 1.2 cm. Bones: Degenerative changes of the thoracic spine. CT/CTA Chest W/WO Contrast IMPRESSION: 1. No pulmonary embolism or acute cardiopulmonary abnormality. 2. Emphysema. Reading Location: [id number]
[2024-11-29] MEDS: MethylPREDNISolone 125 MG/2 ML Vial 60 MG IV (19:52)
[2024-11-29] MEDS: Ipratropium/Albuterol Sulfate 3 ML AMPUL.NEB INHALATION (20:04)
--- NOTE | 2024-11-29 21:47 | PCM.HP.STD ---
[facility] - General General Date of Admission: 11/29/24 Date of Service: 11/29/24 Chief Complaint: SOB. [facility] Narrative ALEAH BURGOS, is a 84 F with a past medical history of essential hypertension; on lisinopril and metoprolol, hyperlipidemia; on rosuvastatin, overweight; with BMI of 27.9 this admission, history of tobacco abuse (quit ~2012); with subsequent COPD, history of gastritis, history of celiac disease, IBS, history of B12 deficiency, history of macular degeneration of the Left eye, history of diverticulosis, OAB; on tolterodine, GERD; on omeprazole and OA who presents to [facility] ER complaining of SOB. Ms. Burgos reports her symptoms began approximately two weeks prior to admission with the gradual-onset of [place] that progressed to SOB at rest with occasional cough. She also admits to associated nausea and vomiting with bilious emesis in addition to generalized weakness with patient spending most of the day on bed with a poor appetite, malaise and fatigue. He granddaughter then apparently activated EMS who noted crackles in her lung bases. She denies associated fever, cough, SOB, chest pain, palpitations, heart racing, lower extremity edema, headache or rash. In the ER she was noted to have UA positive for evidence of Acute Cystitis; without hematuria complicated by clinical evidence of AE COPD with Acute Respiratory Insufficiency compounded by laboratory evidence of FAITH; with elevated serum creatinine of 1.83 mg/dL (up from her previous baseline of 1.10 mg/dL) with all three acute conditions combining to cause Generalized Weakness with Fatigue and Malaise and she was then admitted to the general medical floor for ongoing care for a stay that is expected to extend beyond 2 midnights. [facility] Medical History Numbness and tingling of right leg Epigastric pain Overactive bladder Macular degeneration, left eye Low vitamin B12 level IBS (irritable bowel syndrome) Hypoglycemia GERD (gastroesophageal reflux disease) Elevated hemoglobin A1c Diverticulosis Backache Arthritis of both knees Age related cataract Acute gastritis without mention of hemorrhage Upper abdominal pain Home Medications ?Medication ?Instructions ?Recorded ?Last Taken ?Type cyanocobalamin (vitamin B-12) 500 500 mcg PO DAILY 09/04/22 11/29/24 History mcg tablet omeprazole 40 mg capsule,delayed 40 mg PO DAILY 09/04/22 11/29/24 History release rosuvastatin 20 mg tablet 20 mg PO DAILY 09/04/22 11/28/24 History tolterodine 4 mg capsule,extended 4 mg PO DAILY 09/04/22 11/29/24 History release 24 hr ([facility] [place]) doxazosin 2 mg tablet 2 mg PO DAILY 01/29/23 11/29/24 History lisinopril 40 mg tablet 40 mg PO BID 03/25/24 11/29/24 History [id number]-gdoarbke-zlyjcui 2 cap PO QAC #300 caps 07/14/24 11/29/24 Rx 36,000-114,000-180,000 unit capsule,delay rel ([place]on) ondansetron HCl 4 mg tablet 4 mg PO Q6H PRN #30 tabs 11/23/24 11/29/24 Rx loratadine 10 mg tablet 10 mg PO DAILY 11/29/24 11/29/24 History metoprolol succinate 100 mg 100 mg PO DAILY 11/29/24 11/29/24 History tablet,extended release 24 hr Allergy/AdvReac Type Severity Reaction Status Date / Time adhesive tape Allergy Intermediate Other Verified 11/29/24 16:40 codeine Allergy Hives Verified 11/29/24 16:40 Surgical History S/P total abdominal hysterectomy S/P anterior colporrhaphy Social History Smoking Status: Former smoker quit date: 08/13/14 pack-years: 1 alcohol intake: never ROS ROS Narrative Review of Systems: Constitutional: Patient admits to feeling cold with malaise and fatigue but she denies fever. Eyes: Patient denies changes in vision or discharge from eyes. ENT: Patient denies runny nose, sore throat or ear pain. Resp: Patient admits to shortness of breath and cough. CV: Patient denies chest pain, palpitations, heart racing or lower extremity edema. GI: Patient admits to nausea but she denies vomiting, diarrhea or constipation. : Patient admits to decreased urine output but she denies dysuria or hematuria. MSK: Patient admits to generalized weakness as per HPI. Skin: Patient denies rash, abscess, wounds or jaundice. Psych: Patient denies symptoms of uncontrolled depression or anxiety. Neuro: Patient denies headache, paresthesias or focal neurologic deficits. Allergy: Patient denies lip swelling, tongue swelling or urticaria. Hematology: Patient denies easy bleeding or easy bruisability. Endocrinology: Patient denies polyuria, polydipsia or polyphagia. 14 point ROS otherwise negative except for positives noted above in HPI. Vital Signs Vital Signs Vital Signs: 11/29/24 16:40 11/29/24 16:40 11/29/24 17:26 Temperature 99 F Temperature Source Temporal Pulse Rate 73 73 Respiratory Rate 22 H 14 Respiratory Effort Normal Non-Labored Respiratory Depth Normal Respiratory Pattern Normal Blood Pressure 130/107 H 126/108 H Blood Pressure Mean 114 114 Pulse Ox 96 92 Oxygen Delivery Method Room Air Room Air Room Air 11/29/24 18:04 11/29/24 18:07 11/29/24 19:32 Temperature 97.9 F Temperature Source Oral Pulse Rate 70 Respiratory Rate 17 Respiratory Effort Respiratory Depth Respiratory Pattern Blood Pressure 123/63 H Blood Pressure Mean 83 Pulse Ox 90 87 89 Oxygen Delivery Method Room Air Room Air Room Air 11/29/24 19:54 11/29/24 20:04 11/29/24 21:00 Temperature Temperature Source Pulse Rate 67 70 66 Respiratory Rate 14 14 20 H Respiratory Effort Respiratory Depth Respiratory Pattern Normal Blood Pressure 130/88 H 127/65 H Blood Pressure Mean 102 85 Pulse Ox 87 94 Oxygen Delivery Method Room Air Room Air 11/29/24 21:35 Temperature 98 F Temperature Source Pulse Rate 66 Respiratory Rate 14 Respiratory Effort Respiratory Depth Respiratory Pattern Blood Pressure 134/99 H Blood Pressure Mean 110 Pulse Ox 92 Oxygen Delivery Method Weight Weight: 157 lb 10.088 oz Body Mass Index (BMI) 27.9 Physical Exam Const alert, oriented x3 and average body habitus General Appearance: cooperative HEENT normocephalic, head/scalp atraumatic and hearing grossly normal bilaterally HEENT Narrative: Mucous membranes dry. Eyes PERRL and EOMs intact bilaterally Neck no lymphadenopathy and supple Resp Resp Narrative: Diminished breath sounds throughout. Cardio regular rate and regular rhythm GI normal to inspection, nondistended, normoactive bowel sounds, soft to palpation, non-tender and non-distended Extremity normal to inspection, full ROM and no clubbing, cyanosis or edema Skin Skin Narrative: Patient has no evidence of rash, abscess, wounds or jaundice. Neuro oriented x3, CN's II-XII intact bilaterally, moves all extremities and no focal motor deficits Sensorium / Orientation: awake, alert, oriented to person, oriented to place and oriented to time Speech: speech normal Psych affect normal Results Medical Records Data Attestation: I reviewed the patient's medical records Lab / Micro Data Attestation: I reviewed the patient's lab results. 11/29/24 17:25 11/29/24 17:25 Labs: Laboratory Results - last 24 hr 11/29/24 17:25: WBC 6.1, RBC 4.08 L, Hgb 11.4 L, Hct 34.7 L, MCV 85.0, MCH 27.9, MCHC 32.9, RDW Std Deviation 41.4, RDW Coeff of Betty 13.5, Plt Count 275, MPV 9.4, Immature Gran % (Auto) 0.700, Neut % (Auto) 68.8, Lymph % (Auto) 14.4 L, Warren % (Auto) 12.0 H, Eos % (Auto) 3.6, Baso % (Auto) 0.5, Absolute Neuts (auto) 4.2, Absolute Lymphs (auto) 0.88, Nucleated RBC % 0, Sodium 135, Potassium 4.7, Chloride 98, Carbon Dioxide 23.2, Anion Gap 14, BUN 27 H, Creatinine 1.83 H, Estim Creat Clear Calc 21.30 L, Est GFR (MDRD) Non-Af 27 L, BUN/Creatinine Ratio 14.8, Glucose 113 H, Calcium 9.4, Total Bilirubin 0.78, AST 23, ALT 11, Alkaline Phosphatase 60, Total Protein 7.2, Albumin 3.8, Globulin 3.4, Albumin/Globulin Ratio 1.1, Lipase 41 11/29/24 18:05: Urine Color Jaquelin, Urine Clarity Turbid, Urine pH 5.0, Ur Specific [place] 1.020, Urine Protein 30 H, Urine Glucose (UA) Normal, Urine Ketones 5 H, Urine Occult Blood 25 H, Urine Nitrite Negative, Urine Bilirubin 1 H, Urine Urobilinogen 8 H, Ur Leukocyte Esterase 500 H, Urine RBC 0-5 SEEN, Urine WBC >100 SEEN, Ur Squamous Epith Cells 25-50 SEEN, Urine Bacteria 3+, Hyaline Casts 5-10 SEEN, Fine Granular Casts 0-5 SEEN, Urine Mucus 0 SEEN Imaging Radiology Impression Chest X-Ray 11/29/24 17:30 IMPRESSION: No focal consolidations. Bibasilar subsegmental atelectasis. Stable mild cardiomegaly. Reading Location: [facility] Chest CTA 11/29/24 19:38 IMPRESSION: 1. No pulmonary embolism or acute cardiopulmonary abnormality. 2. Emphysema. Reading Location: [facility] Assessment & Plan Assessment/Plan (1) Acute cystitis without hematuria: (2) COPD exacerbation: (3) Acute respiratory insufficiency: (4) FAITH (acute kidney injury): (5) Generalized weakness: (6) Malaise and fatigue: (7) Overweight (BMI 25.0-29.9): PLAN: Plan 1. UA positive for evidence of Acute Cystitis; without hematuria - Admit to general medical floor with telemetric monitoring. Give IV ceftriaxone and await culture and sensitivity data. Give acetaminophen prn for [id number] (level 1-5/10) pain or fever. Give morphine IV prn for severe (level 6-10/10) pain. 2. AE COPD with Acute Respiratory Insufficiency complicating #1 - Continue IV methylprednisolone begun in the ER plus give scheduled and prn nebulizers. Wean supplemental oxygen as tolerated. 3. FAITH; with elevated serum creatinine of 1.83 mg/dL (up from her previous baseline of 1.10 mg/dL) compounding #1 & #2 - Give volume resuscitation and check renal indices daily to follow trend. 4. Generalized Weakness with Fatigue and Malaise attributable to #1 - #3 - PT/OT and Case Management to consult and treat on-rounds in AM with help appreciated in advance. 5. Overweight; with BMI of 27.9 this admission adding to the burden of disease outlined from #1 - #4 - Weight loss will be recommended. Check TSH. 6. Essential hypertension; on lisinopril and metoprolol - Hold lisinopril in light of #3. Continue metoprolol as before plus give IV hydralazine prn for systolic blood pressure > 160 mmHg. 7. Hyperlipidemia; on rosuvastatin - Hold statin until weakness improves in case of potential myotoxicity. 8. History of tobacco abuse (quit ~2012); with subsequent COPD - Noted. 9. History of gastritis - Noted. 10. History of celiac disease - Stable. 11. IBS - Stable. 12. History of B12 deficiency - Check B12 level and continue oral replacement. 13. History of macular degeneration of the Left eye - Noted. 14. History of diverticulosis - Stable. 15. OAB; on tolterodine - Maintain present therapy. 16. GERD; on omeprazole - Continue PPI. 17. OA - Give acetaminophen prn as outlined in #1. 18. DVT prophylaxis - Heparin 5,000U sq TID plus SCD's. Total time: Approximately (but not less than) 75 minutes. Charges/Coding Visit Charges Inpatient E&M: 26099 Init Hosp L3
--- OUTSIDE RECORDS SUMMARY | 2024-11-29 23:16 | XMS RPT_ITS | CCD ---
Author Organization [facility] Care Team Providers Care Field Staff Name Role Phone Dustin Hoang MD Primary Care Provider Dr. Dustin Joyner Primary Care Provider Dr. Dustin Joyner Referring Provider Dr. Kevon Crum Attending Provider Dustin Hoang MD Primary Care Provider [phone] DUSTIN HOANG Primary Care Unavailable Dr. Dustin Hoang Primary Care Provider Dr. Dustin Hoang Referring Provider Dr. Dustin Hoang Other Provider Dr. Jenn Saleh Attending Provider Dustin Hoang MD Primary Care Provider Dustin Hoang MD Primary Care Provider Kevon Crum Attending Unavailable Dustin Hoang Referring Unavailable Dustin Hoang Primary Care Unavailable Dustin Hoang Primary Care Unavailable Dustin Hoang Attending Unavailable Dustin Hoang Referring Unavailable Dustin Giles Attending Unavailable Dustin Giles Referring Unavailable Dustin Hoang Primary Care Unavailable Phani Alex Attending UnavailDustin Warner Primary Care Unavailable Kevon Crum Attending Unavailable Dustin Hoang Primary Care Unavailable Dustin Hoang Referring Unavailable John Alba Attending UnavailDustin Warner Referring Unavailable Dustin Hoang Primary Care Unavailable John lAba Attending UnavailDustin Warner Consulting Unavailable Viktor, Dustin Referring Unavailable Viktor, Dustin Primary Care Unavailable Karina CIGAR SORTER.LISAAldoShakeel Unavailable Mamie Sotelo PA-C Unavailable [phone] VIKTOR, DUSTIN A Referring Unavailable VIKTOR, DUSTIN A Primary Care Unavailable VIKTOR, DUSTIN A Referring Unavailable VIKTOR, DUSTIN A Primary Care Unavailable VIKTOR, DUSTIN A Referring Unavailable VIKTOR, DUSTIN A Primary Care Unavailable VIKTOR, DUSTIN A Referring Unavailable VIKTOR, DUSTIN A Primary Care Unavailable VIKTOR, DUSTIN A Primary Care Unavailable VIKTOR, DUSTIN A Primary Care Unavailable SHAKEEL COLLINS Referring Unavailable VIKTOR, DUSTIN A Referring Unavailable VIKTOR, DUSTIN A Primary Care Unavailable VIKTOR, DUSTIN A Primary Care Unavailable VIKTOR, DUSTIN A Attending Unavailable VIKTOR, DUSTIN A Referring Unavailable VIKTOR, DUSTIN A Primary Care Unavailable VIKTOR, DUSTIN A Primary Care Unavailable SHAKEEL COLLINS Attending Unavailable SELF Referring Unavailable VIKTOR, DUSTIN A Primary Care Unavailable KNSHAKEEL GARCÍA Referring Unavailable VIKTOR, DUSTIN A Referring Unavailable VIKTOR, DUSTIN A Primary Care Unavailable VIKTOR, DUSTIN A Attending Unavailable VIKTOR, DUSTIN A Primary Care Unavailable Dustin Hoang MD Primary Care Provider Karina CIGAR SORTER.LISAShakeel Unavailable Mamie Sotelo PA-C Unavailable Allergies Allergy Classification Reported Allergen(s) Allergy Type Date of Onset Reaction(s) Facility Adhesive Tape (4 sources) Adhesive Tape Substance Allergy 1 Rash [facility] Opioid Agonists (4 sources) Codeine Drug Allergy 7 GI Upset [facility] (20 sources) Adhesive Tape; Translations: [ADHESIVE TAPE (ROSINS)] Propensity to adverse reactions to substance 1 Rash [facility] Work Phone: (20 sources) Codeine; Translations: [CODEINE] Drug Allergy 7 GI Upset [facility] Work Phone: (20 sources) Thiazides; Translations: [THIAZIDES] Drug Intolerance 3 Other: See Comments [facility] Work Phone: (4 sources) Adhesive Tape; Translations: [adhesive tape] Allergy to substance 3 Other [facility] (1 source) Codeine Drug Allergy 4 [facility] Repository Medications Current Medications Medication Drug Class(es) Dates Sig (Normalized) Sig (Original) Albuterol (3 sources) beta2-Adrenergic Agonist Start: 08-15-2014 Albuterol Sulfate (Ventolin Hfa) 18 GM HFA aerosol inhaler Active 18 GM IH 4 TIMES DAILY NEEDED August 15, 2014 10:37am Start: 08-15-2014 Albuterol Sulf ate (Ventolin Hfa) 18 GM HFA aerosol inhaler Active 18 GM IH 4 TIMES DAILY NEEDED August 15, 2014 10:37am amylase [id number] unt / lipase 30026 unt / protease [id number] unt delayed release oral capsule (20 sources) Start: 05-20-2023 CREON 36,000-1 14,000- 180,000 unit delayed release capsule 05/20/2023 Active Start: 12-04-2022 End: 01-08-2023 take [id number] capsules by mouth three times daily at mealtime Qczjjo-Dxoqnmmx-Xtgslpn (Creon) 36,000-114,000- 180,000 unit capsule,delayed release(DR/EC) Active 2 CAP PO THREE TIMES A DAY January 08, 2023 1:09pm administer with meals and/or snacks azithromycin 500 mg oral tablet (3 sources) Macrolide Antimicrobial Start: 08-15-2014 take 1 tablet by mouth once daily Azithromycin (Zithromax) 500 MG tablet Active 500 MG PO DAILY August 15, 2014 12:00am cephalexin 500 mg oral capsule (2 sources) Cephalosporin Antibacterial Start: 07-12-2024 End: 07-17-2024 take 1 capsule by mouth twice daily cephALEXin (KEFLEX) 500 mg capsule Indications: Urinary tract infection without hematuria, site unspecified Take 1 capsule by mouth two times a day for 5 days. 10 capsule 07/12/2024 07/17/2024 Active diclofenac sodium 0.01 mg/mg topical gel (20 sources) Nonsteroidal Anti-inflammatory Drug Start: 12-20-2020 apply 2 g topically four times daily diclofenac (VOLTAREN) 1 % topical gel Indications: Primary osteoarthritis of both knees APPLY 2 GRAMS TO AFFECTED AREA FOUR TIMES DAILY. 200 g 1 12/20/2020 Active Comment on above: APPLY 2 GRAMS TO AFF ECTED AREA FOUR TIMES DAILY. doxazosin 2 mg oral tablet (20 sources) alpha-Adrenergic Aurelio Start: 09-04-2022 take 1 mg by mouth once daily Doxazosin Active 1 MG PO DAILY September 04, 2022 12:00am Start: 08-15-2022 End: 08-13-2024 take 1 tablet by mouth once daily doxazosin (CARDURA) 2 mg tablet Indications: Essential hypertension Take 1 tablet by mouth once daily. 90 tablet 1 08/13/2024 Active Start: 03-17-2022 End: 08-15-2022 take 1 tablet by mouth once daily doxazosin (CARDURA) 1 mg tablet Take 1 tablet by mouth once daily. 30 tablet 5 07/25/2022 08/15/2022 Discontinued Comment on above: Take 1 tablet by yaa th once daily. doxycycline hyclate 100 mg oral tablet (1 source) Tetracycline-class Drug Start: End: take 1 tablet by mouth twice daily doxycycline (VIBRA-TABS) 100 mg tablet Indications: Acute cough Take 1 tablet by mouth two times a day for 7 days. 14 tablet 0 04/21/2023 04/28/2023 Active Comment on above: Take 1 tablet by yaa th two times a day for 7 days. enteric contrast (will be provided with radiology test) (1 source) Start: End: enteric contrast (will be provided with radiology test) Indications: Hydronephrosis, unspecified hydronephrosis type , Dilation of biliary tract For CT ABD W IVCON order Administer, As Directed One Time Only, via Oral, Rectal, both Oral and Rectal, Enteric Tube, Stoma or Indwelling Catheter, Enteric Contrast as designated per enteric contrast guidelines 1 Each 0 08/01/2022 08/02/2022 Active Comment on above: For CT ABD W IVCON o rder Administer, As Directed One Time Only, via Oral, Rectal, both Oral and Rectal, Enteric Tube, Stoma or Indwelling Catheter, Enteric Contrast as designated per enteric contrast guidelines hydrocortisone 25 mg/ml topical cream (4 sources) Corticosteroid Start: End: hydrocortisone 2.5 % cream Apply 1 application to affected area twice daily for 7 days. Location: rash 28 g 0 10/30/2021 11/06/2021 Active Comment on above: Apply 1 application to affected area twice daily for 7 days. Location: rash iv contrast (will be provided with radiology test) (1 source) Start: End: iv contrast (will be provided with radiology test) Indications: Hydronephrosis, unspecified hydronephrosis type , Dilation of biliary tract CT ABD W -Inject, intravenously, once for 1 dose.No IV access, insert saline lock prior to the beginning of sedation, infusion, injection of imaging exam. Discontinue saline lock post exam. If Pt. has a central line or IVAD, may access for administration according to line specific nursing protocol. Once exam is complete flush line and de-access according to line specific nursing protocol in the CT contrast administration guidelines link. 1 Each 0 08/01/2022 08/02/2022 Active Comment on above: CT ABD W -Inject, in travenously, once for 1 dose.No IV access, insert saline lock prior to the beginning of sedation, infusion, injection of imaging exam. Discontinue saline lock post exam. If Pt. has a central line or IVAD, may access for administration according to line specific nursing protocol. Once exam is complete flush line and de-access according to line specific nursing protocol in the CT contrast administration guidelines link. lisinopril 40 mg oral tablet (20 sources) Angiotensin Converting Enzyme Inhibitor Start: take 40 mg by mouth once daily Lisinopril Active 40 MG PO DAILY September 04, 2022 12:00am Start: 01-14-2022 End: 11-11-2024 take 1 tablet by mouth twice daily lisinopril (ZESTRIL) 40 mg tablet Indications: Essential hypertension Take 1 tablet by mouth two times a day. 180 tablet 1 11/11/2024 Active Start: 04-20-2021 End: 01-14-2022 take 1.5 tablets by mouth once daily lisinopril (ZESTRIL, PRINIVIL) 40 mg tablet Indications: Essential hypertension Take 1.5 tablets by mouth once daily. 135 tablet 1 11/09/2021 01/14/2022 Discontinued Start: 08-14-2014 End: 09-04-2022 take 20 mg by mouth once daily Lisinopril Discontinued 20 MG PO DAILY August 14, 2014 1:00am September 04, 2022 2:29pm Comment on above: Take 1.5 tablets by mouth once daily. Take 1 tablet by yaa th twice daily. Take 1 tablet by yaa th two times a day. loratadine 10 mg oral tablet (20 sources) Start: 07-02-2024 take 1 tablet by mouth once daily loratadine (CLARITIN) 10 mg tablet Indications: Seasonal allergies Take 1 tablet by mouth once daily. 90 tablet 1 07/02/2024 Active Start: 12-19-2021 End: 11-20-2022 take 1 tablet by mouth once daily loratadine (CLARITIN) 10 mg tablet Take 1 tablet by mouth once daily. 30 tablet 5 12/19/2021 11/20/2022 Discontinued Comment on above: Take 1 tablet by yaa th once daily. 24 hr metoprolol succinate 100 mg extended release oral tablet (20 sources) beta-Adrenergic Aurelio Start: 06-19-2021 End: 09-27-2024 take 1 tablet by mouth once daily metoprolol succinate ER (TOPROL XL) 100 mg Indications: Essential hypertension Take 1 tablet by mouth once daily. 30 tablet 5 09/27/2024 Active Start: 08-14-2014 take 25 mg by mouth once daily Metoprolol Tartrate Active 25 MG PO DAILY August 14, 2014 1:00am Comment on above: Take 1 tablet by yaa th once daily. nystatin 100 unt/mg topical powder (20 sources) Polyene Antifungal Start: 2 nystatin (MYCOSTATIN) powder Apply 1 application to affected area twice daily. 60 g 2 06/19/2021 Active Comment on above: Apply 1 application to affected area twice daily. omeprazole 40 mg delayed release oral capsule (20 sources) Proton Pump Inhibitor Start: 3 End: 3 take 20 mg by mouth once daily Omeprazole Discontinued 20 MG PO DAILY September 04, 2022 12:00am September 04, 2022 2:28pm Start: 07-25-2022 End: 07-13-2024 take 1 capsule by mouth once daily before breakfast omeprazole (PRILOSEC) 40 mg capsule Take 1 capsule by mouth daily before breakfast. 1/2 hr before meal. 90 capsule 1 07/14/2024 Active Start: 06-19-2021 End: 07-25-2022 take 1 capsule by mouth once daily before breakfast omeprazole (PRILOSEC) 20 mg capsule Take 1 capsule by mouth daily before breakfast. 1/2 hr before meal. 30 capsule 5 07/25/2022 07/25/2022 Discontinued (Changing Therapy/Dosage Form) Comment on above: Take 1 capsule by mo uth daily before breakfast. 1/2 hr before meal. rosuvastatin calcium 20 mg oral tablet (20 sources) HMG-CoA Reductase Inhibitor Start: 06-19-19 End: 11-12-19 take 1 tablet by mouth once daily at bedtime rosuvastatin (CRESTOR) 20 mg tablet Indications: Mixed hyperlipidemia Take 1 tablet by mouth daily at bedtime. 90 tablet 1 11/11/2024 Active Comment on above: Take 1 tablet by yaa th daily at bedtime. 24 hr tolterodine tartrate 4 mg extended release oral capsule (20 sources) Cholinergic Muscarinic Antagonist Start: 12-20-19 End: 08-14-19 take 1 capsule by mouth once daily tolterodine ER (DETROL LA) 4 mg 24 hr capsule Indications: Overactive bladder Take 1 capsule by mouth once daily. 90 capsule 1 08/13/2024 Active Comment on above: Take 1 capsule by mo uth once daily. vit A/vit C/vit E/zinc/copper (OCUVITE PRESERVISION ORAL) (20 sources) vit A/vit C/vit E/zinc/copper (OCUVITE PRESERVISION ORAL) Take by mouth twice daily. Active vit A/vit C/vit E/zinc/copper (OCUVITE PRESERVISION ORAL) Take by mouth twice daily. 0 Active Comment on above: Take by mouth twice daily. vit C/E/Zn/coppr/lutein/zeaxan (PRESERVISION AREDS-2 ORAL) (20 sources) vit C/E/Zn/coppr/lutein/zeaxan (PRESERVISION AREDS-2 ORAL) Take by mouth. Active vit C/E/Zn/coppr /lutein/zeaxan (PRESERVISION AREDS-2 ORAL) Take by mouth. 0 Active Comment on above: Take by mouth. vitamin b12 0.5 mg oral tablet (20 sources) Vitamin B12 Start: 12-23-2021 take 1 tablet by mouth once daily cyanocobalamin (VITAMIN B-12) 500 mcg tablet Take 1 tablet by mouth once daily. 12/23/2021 Active Comment on above: Take 1 tablet by [facility] once daily. zolpidem tartrate 5 mg oral tablet (3 sources) gamma-Aminobutyri c Acid-ergic Agonist Start: 08-15-2014 take 5 mg by mouth at bedtime as needed Zolpidem Active 5 MG PO AT BEDTIME NEEDED August 15, 2014 10:38am Completed/Discontinued Medications Medication Drug Class(es) Dates Sig (Normalized) Sig (Original) esomeprazole 40 mg delayed release oral capsule (3 sources) Proton Pump Inhibitor Start: 5 End: 3 take 1 capsule by mouth once daily Esomeprazole Magnesium (Nexium) 40 MG capsule Discontinued 40 MG PO DAILY August 14, 2014 1:00am September 04, 2022 2:26pm hydroCHLOROthiazide 12.5 mg oral capsule (7 sources) Thiazide Diuretic Start: 2 End: 3 take 1 capsule by mouth once daily hydroCHLOROthiazide (HYDRODIURIL, ESIDRIX) 12.5 mg capsule Take 1 capsule by mouth once daily. 30 capsule 5 02/13/2022 07/25/2022 Discontinued (Allergic response) Comment on above: Take 1 capsule by [facility] once daily. meloxicam 15 mg oral tablet (20 sources) Nonsteroidal Anti-inflammator y Drug Start: 1 End: 3 take 0.5-1 tablets by mouth once daily as needed meloxicam (MOBIC) 15 mg tablet Indications: Primary osteoarthritis of both knees TAKE 0.5-1 TABLETS BY MOUTH ONCE DAILY NEEDED. 30 tablet 1 01/08/2021 11/20/2022 Discontinued Comment on above: TAKE 0.5-1 TABLETS B Y MOUTH ONCE DAILY NEEDED. mirtazapine 15 mg oral tablet (3 sources) Start: 5 End: 5 take 15 mg by mouth at bedtime Mirtazapine Discontinued 15 MG PO AT BEDTIME August 14, 2014 1:00am August 15, 2014 10:36am regadenoson (LEXISCAN) 0.4 mg/5 mL syrg (2 sources) Start: End: regadenoson (LEXISCAN) 0.4 mg/5 mL syrg Indications: Angina pectoris (HCC) , SOB (shortness of breath) Inject 5 mL intravenously one time only for 1 dose. Give IV push over 10 seconds and follow with 5 ml of normal saline 5 mL 0 11/20/2022 11/20/2022 Discontinued Start: 11-20-2022 End: 11-20-2022 regadenoson (LEXISCAN) 0.4 m g/5 mL syrg Indications: Angina pectoris (HCC) , SOB (shortness of breath) , Palpitations Inject 5 mL intravenously one time only for 1 dose. Give IV push over 10 seconds and follow with 5 ml of normal saline 5 mL 0 11/20/2022 11/20/2022 Comment on above: Inject 5 mL intraven ously one time only for 1 dose. Give IV push over 10 seconds and follow with 5 ml of normal saline simvastatin 80 mg oral tablet (3 sources) HMG-CoA Reductase Inhibitor Start: 08-15-19 End: 09-05-19 take 1 tablet by mouth at bedtime Simvastatin (Zocor) 80 MG tablet Discontinued 80 MG PO AT BEDTIME August 14, 2014 1:00am September 04, 2022 2:26pm valACYclovir 1000 mg oral tablet (6 sources) Herpesvirus Nucleoside Analog DNA Polymerase Inhibitor, Herpes Simplex Virus Nucleoside Analog DNA Polymerase Inhibitor, Herpes Zoster Virus Nucleoside Analog DNA Polymerase Inhibitor Start: 04-21-20 End: 04-28-20 23 take 1 tablet by mouth three times daily valACYclovir (VALTREX) 1 gram Indications: Rash Take 1 tablet by mouth three times a day for 7 days. 21 tablet 04/21/2023 04/28/2023 Start: 10-30-2021 End: 11-06-2021 take 1 tablet by mouth twice daily valACYclovir (VALTREX) 1 gram Take 1 tablet by mouth twice daily for 7 days. 14 tablet 0 10/30/2021 11/06/2021 Active Comment on above: Take 1 tablet by yaa th twice daily for 7 days. Take 1 tablet by yaa th three times a day for 7 days. Problems Active Problems Problem Classification Problem Date Documented Da te Episodic/Chronic Abdominal pain (3 sources) Epigastric pain; Translations: [Epigastric pain] Episodic Biliary tract disease (2 sources) Disorder of biliary tract; Translations: [Other specified diseases of biliary tract] Chronic Cardiac dysrhythmias (20 sources) Premature atrial contraction; Translations: [Atrial premature depolarization] Onset: 3 01-08-2023 Chronic Cardiac dysrhythmias (1 source) Palpitations; Translations: [Palpitations] Episodic Cataract (20 sources) Senile cataract; Translations: [Unspecified age-related cataract] Onset: 9 08-07-2018 Chronic Chronic kidney disease (20 sources) Chronic kidney disease stage 3A ; Translations: [Stage 3a chronic kidney disease] Onset: 3 11-21-2022 Chronic Chronic kidney disease (1 source) Chronic kidney disease; Translations: [Stage 3a chronic kidney disease (HCC)] Onset: 3 Coronary atherosclerosis and other heart disease (1 source) Angina pectoris; Translations: [Angina pectoris, unspecified] Chronic Disorders of lipid metabolism (20 sources) Mixed hyperlipidemia; Translations: [Mixed hyperlipidemia] Onset: 7 12-04-2010 Chronic Esophageal disorders (20 sources) Gastroesophageal reflux disease; Translations: [Gastro-esophageal reflux disease without esophagitis] Onset: 5 06-04-2021 Chronic Essential hypertension (20 sources) Essential hypertension; Translations: [Essential (primary) hypertension] Onset: 5 05-09-2017 Chronic Genitourinary symptoms and ill-defined conditions (3 sources) Abnormal urinalysis; Translations: [Unspecified abnormal findings in urine] Onset: 5 07-05-2024 Episodic Headache; including migraine (2 sources) Headache; Translations: [Headache, unspecified headache type] 11-21-2023 Episodic Headache; including migraine (1 source) Headache; including migraine; Translations: [Headache, unspecified headache type] Onset: 4 Mood disorders (3 sources) Depressive disorder; Translations: [Depression] 08-14-2014 Chronic Occlusion or stenosis of precerebral arteries (17 sources) Bilateral stenosis of carotid arteries; Translations: [Occlusion and stenosis of bilateral carotid arteries] Onset: 4 01-02-2024 Chronic Osteoarthritis (20 sources) Osteoarthritis; Translations: [Unspecified osteoarthritis, unspecified site] Onset: 7 05-09-2017 Chronic Other diseases of bladder and urethra (20 sources) Overactive bladder; Translations: [Overactive bladder] Onset: 9 08-07-2018 Chronic Other diseases of bladder and urethra (1 source) Overactive bladder; Translations: [Overactive bladder] Onset: 9 Chronic Other diseases of kidney and ureters (2 sources) Hydronephrosis; Translations: [Unspecified hydronephrosis] Episodic Other gastrointestinal disorders (20 sources) Irritable bowel syndrome; Translations: [Irritable bowel syndrome without diarrhea] Onset: 9 12-04-2010 Chronic Other gastrointestinal disorders (20 sources) Celiac disease; Translations: [Celiac disease] Onset: 4 11-21-2023 Chronic Other gastrointestinal disorders (1 source) Celiac disease; Translations: [Celiac disease] Onset: 4 Chronic Other gastrointestinal disorders (3 sources) Abdominal bloating; Translations: [Abdominal distension (gaseous)] 11-15-2022 Episodic Other lower respiratory disease (3 sources) Hypoxia; Translations: [Hypoxemia] 08-14-2014 Episodic Other lower respiratory disease (2 sources) Cough; Translations: [Acute cough] 04-21-2023 Episodic Other lower respiratory disease (5 sources) Dyspnea on exertion; Translations: [Other forms of dyspnea] 11-24-2023 Episodic Other nervous system disorders (20 sources) Chronic pain syndrome; Translations: [Chronic pain syndrome] Onset: 2 Chronic Other nervous system disorders (1 source) Paresthesia of lower extremity; Translations: [Anesthesia of skin] Episodic Other nervous system disorders (1 source) Impairment of balance; Translations: [Other abnormalities of gait and mobility] Episodic Other nervous system disorders (2 sources) Ataxia; Translations: [Ataxia, unspecified] 11-21-2023 Episodic Other non-traumatic joint disorders (1 source) Pain in left hip; Translations: [Pain in left hip] Onset: 4 Episodic Other non-traumatic joint disorders (1 source) Pain in right hip; Translations: [Pain in right hip] Onset: 4 Episodic Other nutritional; endocrine; and metabolic disorders (20 sources) Hypercalcemia; Translations: [Hypercalcemia] Onset: 3 Chronic Other skin disorders (2 sources) Eruption; Translations: [Rash and other nonspecific skin eruption] Episodic Other skin disorders (1 source) Actinic keratosis; Translations: [Actinic keratosis] Episodic Other upper respiratory disease (1 source) Seasonal allergy; Translations: [Other seasonal allergic rhinitis] 07-02-2024 Chronic Other upper respiratory disease (1 source) Other seasonal allergic rhinitis; Translations: [Seasonal allergies] Onset: 5 Chronic Retinal detachments; defects; vascular occlusion; and retinopathy (20 sources) Degenerative disorder of macula ; Translations: [Unspecified macular degeneration] Onset: 9 08-07-2018 Chronic Urinary tract infections (1 source) Urinary tract infectious disease; Translations: [Urinary tract infection, site not specified] 07-12-2024 Episodic Past or Other Problems Problem Classification Problem Date Documented Da te Episodic/Chronic Administrative/social admission (20 sources) Advance directive discussed with patient; Translations: [Other specified counseling] Onset: 2 Episodic Conditions associated with dizziness or vertigo (3 sources) Dizziness; Translations: [Dizziness and giddiness] Onset: 4 11-21-2023 Episodic Diabetes mellitus without complication (20 sources) High hemoglobin A1c level; Translations: [Other abnormal glucose] Onset: 9 08-09-2018 Episodic Malaise and fatigue (7 sources) Lethargy; Translations: [Other fatigue] Onset: 4 08-14-2014 Episodic Nonspecific chest pain (7 sources) Chest pain; Translations: [Chest pain, unspecified] Onset: 4 Episodic Nutritional deficiencies (20 sources) Serum vitamin B12 low; Translations: [Deficiency of other specified B group vitamins] Onset: 2 Episodic Other aftercare (1 source) Other fdc (current) drug therapy; Translations: [Medication management] Onset: 2 Episodic Other gastrointestinal disorders (4 sources) Abdominal distension (gaseous); Translations: [Flatulence, eructation, and gas pain] Onset: 4 11-15-2022 Episodic Other lower respiratory disease (20 sources) Dyspnea; Translations: [Shortness of breath] Onset: 3 Episodic Other lower respiratory disease (2 sources) Other forms of dyspnea; Translations: [Other forms of dyspnea] Onset: 4 Episodic Other nervous system disorders (1 source) Ataxia, unspecified; Translations: [Ataxia] Onset: 4 Episodic Other non-traumatic joint disorders (20 sources) Pain in right knee; Translations: [Pain in joint, lower leg] Onset: 8 02-05-2018 Episodic Other screening for suspected conditions (not mental disorders or infectious disease) (20 sources) Patient encounter status; Translations: [Encounter for screening for malignant neoplasm of colon] Onset: 7 05-09-2017 Episodic Residual codes; unclassified (20 sources) Family history of malignant neoplasm of gastrointestinal tract; Translations: [Family history of malignant neoplasm of digestive organs] Onset: 7 06-04-2021 Episodic Residual codes; unclassified (20 sources) Active living will ; Translations: [Other specified health status] Onset: 0 04-17-2020 Episodic Screening and history of mental health and substance abuse codes (20 sources) Ex-smoker; Translations: [Personal history of nicotine dependence] Onset: 9 05-09-2017 Episodic Spondylosis; intervertebral disc disorders; other back problems (20 sources) Backache; Translations: [Dorsalgia, unspecified] Onset: 9 05-13-2019 Episodic Results Test Name Value Interpretation Reference Range Facility [facility] 07-12-2024 [facility] Telephone (BRYANT) NIDHI NÚÑEZ ([id number]) 1940 F Date Time Provider Department 07/12/24 SHAKEEL COLLINS During your visit today, we recorded the following information about you: Shakeel Collins APRN.BUNDLER 07/12/2024 10:05 AM Signed Please let patient know her urine shows infection. I have sent in antibiotics. Samantha Meneses MA 07/12/2024 10:07 AM Signed Pt notified and verbalized understanding Samantha Meneses MA Allergies As of Date: 07/12/2024 Noted Allergy Reaction ADHESIVE TAPE (ROSINS) 02/15/2011 2 - Rash CODEINE 10/09/2006 8 - GI Upset HCTZ (THIAZIDES) 07/25/2022 14 - Other: See Comments Comments: Made dizzy Date Reviewed: 07/02/2024 Reviewed by: Samantha Meneses MA - Fully Assessed Reason for Visit: Results [95] Primary Visit Diagnosis:Abnormal urinalysis [R82.90] Other Visit Diagnosis:Urinary tract infection without hematuria, site unspecified [N39.0] Order(s):cephALEXin (KEFLEX) 500 mg capsuleTake 1 capsule by mouth two times a day for 5 days.Disp: 10 capsuleRfl: 0 Prescriptions as of 07/12/2024 - cephALEXin (KEFLEX) 500 mg capsule Take 1 capsule by mouth two times a day for 5 days. - loratadine (CLARITIN) 10 mg tablet Take 1 tablet by mouth once daily. - lisinopril (ZESTRIL) 40 mg tablet Take 1 tablet by mouth two times a day. - rosuvastatin (CRESTOR) 20 mg tablet Take 1 tablet by mouth daily at bedtime. - metoprolol succinate ER (TOPROL XL) 100 mg Take 1 tablet by mouth once daily. - omeprazole (PRILOSEC) 40 mg capsule Take 1 capsule by mouth daily before breakfast. 1/2 hr before meal. - tolterodine ER (DETROL LA) 4 mg 24 hr capsule Take 1 capsule by mouth once daily. - doxazosin (CARDURA) 2 mg tablet Take 1 tablet by mouth once daily. - CREON 36,000-114,000- 180,000 unit delayed release capsule - vit C/E/Zn/coppr/lutein/z eaxan (PRESERVISION AREDS-2 ORAL) Take by mouth. - cyanocobalamin (VITAMIN B-12) 500 mcg tablet Take 1 tablet by mouth once daily. - nystatin (MYCOSTATIN) powder Apply 1 application to affected area twice daily. - diclofenac (VOLTAREN) 1 % topical gel APPLY 2 GRAMS TO AFFECTED AREA FOUR TIMES DAILY. - vit A/vit C/vit E/zinc/copper (OCUVITE PRESERVISION ORAL) Take by mouth twice daily. Problem List As Of Date 07/12/2024 Noted Resolved Family history of malignant neoplasm of gastroi*10/09/2006 Osteoarth NOS-other site [M19.90] 10/09/2006 Mixed hyperlipidemia [E78.2] 10/14/2006 Ex-smoker [Z87.891] 02/01/2009 Irritable bowel disease [K58.9] 02/01/2009 Backache [M54.9] 02/17/2009 Essential hypertension [I10] 02/05/2015 GERD (gastroesophageal reflux disease) [K21.9] 02/05/2015 Medicare annual wellness visit, subsequent [Z00*05/09/2017 Screening for colon cancer [Z12.11] 05/09/2017 Chronic pain of both knees [M25.561, M25.562, G*02/05/2018 Arthritis of both knees [M17.0] 02/05/2018 Macular degeneration [H35.30] 08/07/2018 Age-related cataract [H25.9] 08/07/2018 Overactive bladder [N32.81] 08/07/2018 Elevated hemoglobin A1c [R73.09] 08/09/[address] [Z78.9] 04/17/2020 Advance directive discussed with patient [Z71.8*12/19/2021 Chronic pain syndrome [G89.4] 12/19/2021 Medication management [Z79.899] 12/19/2021 Low serum vitamin B12 [E53.8] 12/23/2021 Hypercalcemia [E83.52] 07/25/2022 Stage 3a chronic kidney disease (HCC) [N18.31] 11/21/2022 SOB (shortness of breath) [R06.02] 12/17/2022 PAC (premature atrial contraction) [I49.1] 01/08/2023 Celiac disease [K90.0] 11/21/2023 Bilateral carotid artery stenosis [I65.23] 01/01/2024 Prescriptions ordered this encounter Disp Refills Start End CEPHALEXIN 500 MG CAPSULE 10 c* 0 07/12/2024 07/17/2024 Route: ORAL Sig: Take 1 capsule by mouth two times a day for 5 days. Encounter Status:Closed by WORKMAN SAMANTHA ROBINS on 07/12/24 Normal [facility] Bacteria Ur Culton Bacteria identified Cx Nom (U) ORGANISM ID: 1 >=100,000 CFU/ml Streptococcus anginosus No susceptibility testing done. Normal [facility] Comment on above: Performed By: #### 6 30-4 #### [facility] CLIA [id number] [address] [place] [address] OF [facility]2024 [facility] Telephone (BRYANT) NIDHI NÚÑEZ ([id number]) 1940 F Date Time Provider Department 07/05/24 [facility] your visit today, we recorded the following information about you: Shakeel Collins APRN.BUNDLER 07/05/2024 1:23 PM Signed Please let patient know her hgba1c is up slightly to 5.7. Also find out if she is having any urinary symptoms. Her other labs are stable. Alice Daniels OCCA 07/05/2024 3:47 PM Signed TC to patient who verbalized understanding of below. Patient states she has been having itching but denies burning/pain with urination, frequency, or odor. CHIP Rueda Danielle, APRN.BUNDLER 07/05/2024 5:03 PM Signed I would like patient to come in and provide another urine sample to test for bacterial growth. Alice Daniels OCCA 07/05/2024 5:06 PM Signed TC to patient who is agreeable to below. She will come in tomorrow, 07/06, to give urine sample to lab. CHIP Rueda Allergies As of Date: 07/05/2024 Noted Allergy Reaction ADHESIVE TAPE (ROSINS) 02/15/2011 2 - Rash CODEINE 10/09/2006 8 - GI Upset HCTZ (THIAZIDES) 07/25/2022 14 - Other: See Comments Comments: Made dizzy Date Reviewed: 07/02/2024 Reviewed by: Samantha Meneses MA - Fully Assessed Reason for Visit: Results [95] Primary Visit Diagnosis:Abnormal urinalysis [R82.90] Order(s):BACTERIAL CULTURE, URINE [SQURCUL] Order #: [id number] FUTURE Prescriptions as of 07/08/2024 - loratadine (CLARITIN) 10 mg tablet Take 1 tablet by mouth once daily. - lisinopril (ZESTRIL) 40 mg tablet Take 1 tablet by mouth two times a day. - rosuvastatin (CRESTOR) 20 mg tablet Take 1 tablet by mouth daily at bedtime. - metoprolol succinate ER (TOPROL XL) 100 mg Take 1 tablet by mouth once daily. - omeprazole (PRILOSEC) 40 mg capsule Take 1 capsule by mouth daily before breakfast. 1/2 hr before meal. - tolterodine ER (DETROL LA) 4 mg 24 hr capsule Take 1 capsule by mouth once daily. - doxazosin (CARDURA) 2 mg tablet Take 1 tablet by mouth once daily. - CREON 36,000-114,000- 180,000 unit delayed release capsule - vit C/E/Zn/coppr/lutein/z eaxan (PRESERVISION AREDS-2 ORAL) Take by mouth. - cyanocobalamin (VITAMIN B-12) 500 mcg tablet Take 1 tablet by mouth once daily. - nystatin (MYCOSTATIN) powder Apply 1 application to affected area twice daily. - diclofenac (VOLTAREN) 1 % topical gel APPLY 2 GRAMS TO AFFECTED AREA FOUR TIMES DAILY. - vit A/vit C/vit E/zinc/copper (OCUVITE PRESERVISION ORAL) Take by mouth twice daily. Problem List As Of Date 07/05/2024 Noted Resolved Family history of malignant neoplasm of gastroi*10/09/2006 Osteoarth NOS-other site [M19.90] 10/09/2006 Mixed hyperlipidemia [E78.2] 10/14/2006 Ex-smoker [Z87.891] 02/01/2009 Irritable bowel disease [K58.9] 02/01/2009 Backache [M54.9] 02/17/2009 Essential hypertension [I10] 02/05/2015 GERD (gastroesophageal reflux disease) [K21.9] 02/05/2015 Medicare annual wellness visit, subsequent [Z00*05/09/2017 Screening for colon cancer [Z12.11] 05/09/2017 Chronic pain of both knees [M25.561, M25.562, G*02/05/2018 Arthritis of both knees [M17.0] 02/05/2018 Macular degeneration [H35.30] 08/07/2018 Age-related cataract [H25.9] 08/07/2018 Overactive bladder [N32.81] 08/07/2018 Elevated hemoglobin A1c [R73.09] 08/09/[address] [Z78.9] 04/17/2020 Advance directive discussed with patient [Z71.8*12/19/2021 Chronic pain syndrome [G89.4] 12/19/2021 Medication management [Z79.899] 12/19/2021 Low serum vitamin B12 [E53.8] 12/23/2021 Hypercalcemia [E83.52] 07/25/2022 Stage 3a chronic kidney disease (HCC) [N18.31] 11/21/2022 SOB (shortness of breath) [R06.02] 12/17/2022 PAC (premature atrial contraction) [I49.1] 01/08/2023 Celiac disease [K90.0] 11/21/2023 Bilateral carotid artery stenosis [I65.23] 01/01/2024 Encounter Status:Closed by SHAKEEL COLLINS on 07/08/24 Normal [facility] CBC W Auto Differential pane l (Bld)on 07-02-2024 Basophils (Bld) [#/Vol] 0.04 10*3/uL Normal <0.11 [facility] Comment on above: Order Comment: Speci men Type: BLOOD SPECIMENOrdering Facility: [facility] Address: [address] [place], [place] [address] [address] Performed By: #### 5 7021-8 ####[facility] LABCLIA [id number] [place] [address] [place] Basophils/100 WBC (Bld) 0.6 % Normal [facility] Comment on above: Order Comment: Speci men Type: BLOOD SPECIMENOrdering Facility: [facility] Address: [address] [place] [address] Performed By: #### 5 7021-8 ####[facility] LABCLIA [id number] [place] [address] [place] Differential cell count method Nom (Bld) Auto Normal [facility] Comment on above: Order Comment: Speci men Type: BLOOD SPECIMENOrdering Facility: [facility] Address: [address] [place] [address] Performed By: #### 5 7021-8 ####[facility] LABCLIA [id number] [place] [address] [place] Eosinophils (Bld) [#/Vol] 0.29 10*3/uL Normal <0.46 [facility] Comment on above: Order Comment: Speci men Type: BLOOD SPECIMENOrdering Facility: [facility] Address: [address] [place] [address] Performed By: #### 5 7021-8 ####[facility] LABCLIA [id number] [place] [address] [place] Eosinophils/100 WBC (Bld) 4.4 % Normal [facility] Comment on above: Order Comment: Speci men Type: BLOOD SPECIMENOrdering Facility: [facility] Address: [address] [place] [address] Performed By: #### 5 7021-8 ####[facility] LABCLIA [id number] [place] [address] [place] Erythrocyte distribution width (RBC) [Ratio] 13.3 % Normal 11.5-15.0 [facility] Comment on above: Order Comment: Speci men Type: BLOOD SPECIMENOrdering Facility: [facility] Address: [address] [place] [address] Performed By: #### 5 7021-8 ####[facility] LABCLIA [id number] [place] [address] [place] Hematocrit (Bld) [Volume fraction] 39.1 % Normal 36.0-46.0 [facility] Comment on above: Order Comment: Speci men Type: BLOOD SPECIMENOrdering Facility: [facility] Address: [address] [place] [address] Performed By: #### 5 7021-8 ####[facility] LABCLIA [id number] [place] [address] [place] Hemoglobin (Bld) [Mass/Vol] 12.2 g/dL Normal 11.5-15. 5 [facility] Comment on above: Order Comment: Speci men Type: BLOOD SPECIMENOrdering Facility: [facility] Address: [address] [place] [address] Performed By: #### 5 7021-8 ####[facility] LABCLIA [id number] [place] [address] [place] Immature granulocytes (Bld) [#/Vol] 10*3/uL Normal <0.10 [facility] Comment on above: Order Comment: Speci men Type: BLOOD SPECIMENOrdering Facility: [facility] Address: [address] [place] [address] Performed By: #### 5 7021-8 ####[facility] LABCLIA [id number] [place] [address] [place] Immature granulocytes/100 WBC (Bld) 0.3 % Normal [facility] Comment on above: Order Comment: Speci men Type: BLOOD SPECIMENOrdering Facility: [facility] Address: [address] [place] [address] Performed By: #### 5 7021-8 ####[facility] LABCLIA [id number] [place] [address] [place] Lymphocytes (Bld) [#/Vol] 1.78 10*3/uL Normal 1.00-4.0 0 [facility] Comment on above: Order Comment: Speci men Type: BLOOD SPECIMENOrdering Facility: [facility] Address: [address] [place] [address] Performed By: #### 5 7021-8 ####[facility] LABIA [id number] [place] [address] [place] Lymphocytes/100 WBC (Bld) 27.2 % Normal [facility] Comment on above: Order Comment: Speci men Type: BLOOD SPECIMENOrdering Facility: [facility] Address: [address] [place] [address] Performed By: #### 5 7021-8 ####[facility] [id number] [place] [address] [place] MCH (RBC) [Entitic mass] 27.3 pg Normal 26.0-34.0 [facility] Comment on above: Order Comment: Speci men Type: BLOOD SPECIMENOrdering Facility: [facility] Address: [address] [place] [address] Performed By: #### 5 7021-8 ####[facility] LABIA [id number] [place] [address] [place] MCHC (RBC) [Mass/Vol] 31.2 g/dL Normal 30.5-36.0 [facility] Comment on above: Order Comment: Speci men Type: BLOOD SPECIMENOrdering Facility: [facility] Address: [address] [place] [address] Performed By: #### 5 7021-8 ####[facility] LABIA [id number] [place] [address] [place] MCV (RBC) [Entitic vol] 87.5 fL Normal 80.0-100.0 [facility] Comment on above: Order Comment: Speci men Type: BLOOD SPECIMENOrdering Facility: [facility] Address: [address] [place] [address] Performed By: #### 5 7021-8 ####[facility] LABCLIA [id number] [place] [address] [place] Monocytes (Bld) [#/Vol] 0.70 10*3/uL Normal <0.87 [facility] Comment on above: Order Comment: Speci men Type: BLOOD SPECIMENOrdering Facility: [facility] Address: [address] [place] [address] Performed By: #### 5 7021-8 ####[facility] LABCLIA [id number] [place] [address] [place] Monocytes/100 WBC (Bld) 10.7 % Normal [facility] Comment on above: Order Comment: Speci men Type: BLOOD SPECIMENOrdering Facility: [facility] Address: [address] [place] [address] Performed By: #### 5 7021-8 ####[facility] LABCLIA [id number] [place] [address] [place] Neutrophils (Bld) [#/Vol] 3.71 10*3/uL Normal 1.45-7.5 0 [facility] Comment on above: Order Comment: Speci men Type: BLOOD SPECIMENOrdering Facility: [facility] Address: [address] [place] [address] Performed By: #### 5 7021-8 ####[facility] LABCLIA [id number] [place] [address] [place] Neutrophils/100 WBC (Bld) 56.8 % Normal [facility] Comment on above: Order Comment: Speci men Type: BLOOD SPECIMENOrdering Facility: [facility] Address: [address] [place] [address] Performed By: #### 5 7021-8 ####[facility] LABCLIA [id number] [place] [address] [place] Nucleated RBC (Bld) [#/Vol] 10*3/uL Normal <0.01 [facility] Comment on above: Order Comment: Speci men Type: BLOOD SPECIMENOrdering Facility: [facility] Address: [address] [place] [address] Performed By: #### 5 7021-8 ####[facility] LABCLIA [id number] [place] [address] [place] Nucleated RBC/100 WBC (Bld) [Ratio] 0.0 /100 WBC Normal [facility] Comment on above: Order Comment: Speci men Type: BLOOD SPECIMENOrdering Facility: [facility] Address: [address] [place] [address] Performed By: #### 5 7021-8 ####[facility] LABIA [id number] [place] [address] [place] Platelet mean volume (Bld) [Entitic vol] 10.4 fL Normal 9.0-12.7 [facility] Comment on above: Order Comment: Speci men Type: BLOOD SPECIMENOrdering Facility: [facility] Address: [address] [place] [address] Performed By: #### 5 7021-8 ####[facility] LABIA [id number] [place] [address] [place] Platelets (Bld) [#/Vol] 197 10*3/uL Normal 150-400 [facility] Comment on above: Order Comment: Speci men Type: BLOOD SPECIMENOrdering Facility: [facility] Address: [address] [place] [address] Performed By: #### 5 7021-8 ####[facility] LABCLIA [id number] [place] [address] [place] RBC (Bld) [#/Vol] 4.47 10*6/uL Normal 3.90-5.20 [facility] Comment on above: Order Comment: Speci men Type: BLOOD SPECIMENOrdering Facility: [facility] Address: [address] [place] [address] Performed By: #### 5 7021-8 ####[facility] LABCLIA [id number] [place] [address] [place] WBC (Bld) [#/Vol] 6.54 10*3/uL Normal 3.70-11.00 [facility] Comment on above: Order Comment: Speci men Type: BLOOD SPECIMENOrdering Facility: [facility] Address: [address] [place] [address] Performed By: #### 5 7021-8 ####[facility] LABCLIA [id number] [address] [place] CNOVon 07-02-2024 [facility] NIDHI NÚÑEZ ([id number]) 1940 F Date Time Provider Department 07/02/24 2:00 PM SHAKEEL COLLINS During your visit today, we recorded the following information about you: Pulse Blood pressure Weight 55/minute 127/70 73 kg Shakeel Collins APRN.BUNDLER 07/02/2024 2:29 PM Signed Nidhi Núñez is a 84 year old female here for a Medicare wellness visit. Medicare Health Risk Assessment General Health Fair Exercise: Minutes/Day No Exercise: Days/Week No Alcohol: Daily Use No Alcohol: Drinks/Day No Alcohol: 6 or more drinks No Feel off balance Frequently since back surgery Concerns: Teeth/Dentures No Concerns: Sexual function N/A Troubled by feelings No Frequency: Eating healthy diet Well balanced ADLs requiring help Can complete ADL's with accomodations Safety precautions in home/vehicle Yes Smoke, vape, chews tobacco No Difficulty hearing BARROW, no hearing aids Difficulty seeing Wears glasses, has appt at eye doctor coming up Current Providers Specialists: I have reviewed specialist-related care of the patient in the medical record. Current care team: Patient Care Team: Dustin Hoang MD as PCP - General (Family Medicine) Shakeel Collins APRN.LISA as [employer] Club We[employer]her (Family Medicine) Mamie Sotelo PA-C as [employer] (Family Medicine) Medical/Family history review Reviewed and updated problem list, medical/surgical/fami ly/social history, medications, and allergies. Opioid use review Opioid Medications (last 90 days) No data to display Anxiety/Depression screening PHQ-2 Score: 0 (Lower risk for anxiety) Recommendation: no further intervention at this time Cognitive screening Cognitive screening reviewed and No further action needed (score 3-5). Functional Observation Was the patient's Timed Up AND Go test unsteady or >= 12 seconds? No Advance Care Planning Surrogate decision maker and/or advance care plan documented Measurements BP 127/70 Pulse (!) 55 Wt 73 kg (161 lb) BMI 30.24 kg/m? Vision Screening: Follows with optometry/ophthalmolo gy Assessment/Plan Medicare annual wellness visit, subsequent (Z00.00) - Counseled on healthy diet and regular exercise - Fall avoidance information provided - Personalized prevention plan provided - Discussed need for and benefit of weight loss. BMI 30.24 kg/(m2) Chief Complaint Patient presents with: Medicare Wellness Exam HPI Nidhi Núñez is a 84 year old female who presents here today for Above Complaints.. Patient presents for annual wellness visit. Reports she is doing well. Granddaughter reports patient has a cough and it has come and gone over the last month. Past medical history, appointments, medications, allergies reviewed. Previous Medical History PAST MEDICAL HISTORY Diagnosis Date Acute gastritis without mention of hemorrhage 03/30/2009 Advance directive discussed with patient 12/19/2021 Discussed 12/2021 Age-related cataract 08/07/2018 Arthritis of both knees 02/05/2018 Bilateral carotid artery stenosis 01/01/2024 US 12/2023: kendall 20-40% Celiac disease 11/21/2023 Chronic pain of both knees 02/05/2018 Chronic pain syndrome 12/19/2021 Seeing pain management Diverticulosis of colon (without mention of hemorrhage) Elevated hemoglobin A1c 08/09/2018 Essential hypertension 02/05/2015 Ex-smoker 02/01/2009 Started at age 16 up to 1 PPD, quit 2014 Family history of malignant neoplasm of gastrointestinal tract GERD (gastroesophageal reflux disease) 02/05/2015 EGD (negative Browning's) Hypoglycemia, unspecified Hypoglycemia Irritable bowel disease 02/01/[address] 04/17/2020 DPA: Meghan (daughter) Low serum vitamin B12 12/23/2021 Macular degeneration 08/07/2018 Left Mixed hyperlipidemia 10/14/2006 Osteoarth NOS-other site 10/09/2006 Overactive bladder 08/07/2018 PAC (premature atrial contraction) 01/08/2023 Per halter 12/2022 Stage 3a chronic kidney disease (HCC) 11/21/2022 Previous Surgical History PAST SURGICAL HISTORY Procedure Laterality Date *STRESS TEST PC 05/27/2017 normal 2D ECHO (EXEP) 05/27/2017 EF=70%, mild LVH, no significant valvue issues ANTERIOR COLPORRAPHY RPR CYSTOCELE W/CYSTO Cystocele repair, x2 CATARACT EXTRACTION HX Left 2011 COLONOSCOPY FLX DX W/COLLJ SPEC WHEN PFRMD 03/30/09 EGD TRANSORAL BIOPSY SINGLE/MULTIPLE 03/30/09 FECAL OCCULT BLOOD TEST 05/12/2017 negative TOTAL ABDOMINAL HYSTERECT W/WO RMVL TUBE OVARY 1970's Hysterectomy, RAY XCAPSL CTRC RMVL INSJ IO LENS PROSTH W/O ECP Right 06/2019 Cataract Extraction with PC IOL Family History FAMILY HISTORY Problem Relation Age of Onset Diabetes Mother Emphysema Mother Cancer Mother skin Colon Cancer Father liver cancer Diabetes Father Patient Allergies ALLERGIES Allergen Reactions Adhesive Tape (Jeannette* (more content not included)... Normal [facility] Comprehensive metabolic 2000 panelon 07-02-2024 Albumin [Mass/Vol] 4.1 g/dL Normal 3.9-4.9 [facility] Comment on above: Order Comment: Speci men Type: BLOOD SPECIMENOrdering Facility: [facility] Address: [address] [place] [address] Performed By: #### 3 016-3, 22311-6, JOSE MARTIN, 34015-4 ####[facility] LABCLIA [id number] [place] [id number] [place] ALP [Catalytic activity/Vol] 50 U/L Normal 34-123 [facility] Comment on above: Order Comment: Speci men Type: BLOOD SPECIMENOrdering Facility: [facility] Address: [address] [place] [address] Performed By: #### 3 016-3, 23572-1, LIPNF, 62231-6 ####[facility] LABCLIA [id number] [place] [address] [place] ALT [Catalytic activity/Vol] 12 U/L Normal 7-38 [facility] Comment on above: Order Comment: Speci men Type: BLOOD SPECIMENOrdering Facility: [facility] Address: [address] [place] [address] Performed By: #### 3 016-3, 15187-9, LIPNF, 20638-2 ####[facility] LABIA [id number] [place] [address] [place] Anion gap [Moles/Vol] 10 mmol/L Normal 8-15 [facility] Comment on above: Order Comment: Speci men Type: BLOOD SPECIMENOrdering Facility: [facility] Address: [address] [place] [address] Performed By: #### 3 016-3, 60128-2, LIPNF, 99265-3 ####[facility] LABCLIA [id number] [place] [address] [place] AST [Catalytic activity/Vol] 18 U/L Normal 13-35 [facility] Comment on above: Order Comment: Speci men Type: BLOOD SPECIMENOrdering Facility: [facility] Address: [address] [place] [address] Performed By: #### 3 016-3, 24955-5, LIPNF, 97109-8 ####[facility] LABCLIA [id number] [place] [address] [place] Bilirubin [Mass/Vol] 0.3 mg/dL Normal 0.2-1.3 [facility] Comment on above: Order Comment: Speci men Type: BLOOD SPECIMENOrdering Facility: [facility] Address: [address] [place] [address] Performed By: #### 3 016-3, 27138-7, LIPNF, ####[facility] LABCLIA [id number] [place] [address] [place] Calcium [Mass/Vol] 9.4 mg/dL Normal 8.5-10.2 [facility] Comment on above: Order Comment: Speci men Type: BLOOD SPECIMENOrdering Facility: [facility] Address: [address] [place] [address] Performed By: #### 3 016-3, 49692-3, LIPNF, ####[facility] LABCLIA [id number] [place] [address] [place] Chloride [Moles/Vol] 104 mmol/L Normal 98-107 [facility] Comment on above: Order Comment: Speci men Type: BLOOD SPECIMENOrdering Facility: [facility] Address: [address] [place] [address] Performed By: #### 3 016-3, 24572-1, LIPNF, ####[facility] LABCLIA [id number] [place] [address] [place] CO2 [Moles/Vol] 25 mmol/L Normal 22-30 [facility] Comment on above: Order Comment: Speci men Type: BLOOD SPECIMENOrdering Facility: [facility] Address: [address] [place] [address] Performed By: #### 3 016-3, 87054-3, LIPNF, ####[facility] LABCLIA [id number] [address] [place] [address] [place] Creatinine [Mass/Vol] 1.02 mg/dL High 0.58-0.96 [facility] Comment on above: Order Comment: Sabino boogie Type: BLOOD SPECIMENOrdering Facility: [facility] Address: [address] [place] [address] Performed By: #### 3 016-3, 81456-6, JOSE MARTIN, ####[facility] LABCLIA [id number] [place] [address] [place] Creatinine and Glomerular filtration rate.predicted panel (S/P/Bld) 54 mL/min/1.73m??? Low >=60 [facility] Comment on above: Order Comment: Sabino boogie Type: BLOOD SPECIMENOrdering Facility: [facility] Address: [address] [place] [address] Result Comment: Gabriela mated Glomerular Filtration Rate (eGFR) is calculated using the 2020 CKD-EPI creatinine equation. This equation utilizes serum creatinine, sex, and age as parameters. The creatinine assay has traceable calibration to isotope dilution-mass spectrometry. Refer to KDIGO guidelines for clinical interpretation. In patients with unstable renal function, e.g. those with acute kidney injury, the eGFR may not accurately reflect actual GFR. Performed By: #### 3 016-3, 79369-0, JOSE MARTIN, ####[facility] LABCLIA [id number] [place] [address] [place] Glucose [Mass/Vol] 95 mg/dL Normal 74-99 [facility] Comment on above: Order Comment: Sabino boogie Type: BLOOD SPECIMENOrdering Facility: [facility] Address: [address] [place] [address] Result Comment: The [place] Diabetes Association (ADA) provides guidance for cutoff values for fasting glucose and random glucose. The ADA defines fasting as no caloric intake for at least 8 hours. Fasting plasma glucose results between 100 to 125 mg/dL indicate increased risk for diabetes (prediabetes). Fasting plasma glucose results greater than or equal to 126 mg/dL meet the criteria for diagnosis of diabetes. In the absence of unequivocal hyperglycemia, results should be confirmed by repeat testing. In a patient with classic symptoms of hyperglycemia or hyperglycemic crisis, random plasma glucose results greater than or equal to 200 mg/dL meet the criteria for diagnosis of diabetes. Reference: Standards of Medical Care in Diabetes 2016, [place] Diabetes Association. Diabetes Care. 2016.39(Suppl 1). Performed By: #### 3 016-3, 59157-4, LIPNF, ####[facility] LABCLIA [id number] [place] [address] [place] Potassium [Moles/Vol] 5.1 mmol/L Normal 3.7-5.1 [facility] Comment on above: Order Comment: Speci men Type: BLOOD SPECIMENOrdering Facility: [facility] Address: [address] [place] [address] Performed By: #### 3 016-3, 37860-3, LIPNF, ####[facility] LABCLIA [id number] [place] [address] [place] Protein [Mass/Vol] 6.7 g/dL Normal 6.3-8.0 [facility] Comment on above: Order Comment: Speci men Type: BLOOD SPECIMENOrdering Facility: [facility] Address: [address] [place] [address] Performed By: #### 3 016-3, 57538-3, LIPNF, ####[facility] LABCLIA [id number] [place] [address] [place] Sodium [Moles/Vol] 139 mmol/L Normal 136-144 [facility] Comment on above: Order Comment: Speci men Type: BLOOD SPECIMENOrdering Facility: [facility] Address: [address] [place] [address] Performed By: #### 3 016-3, 98935-5, LIPNF, ####[facility] LABCLIA [id number] [place] [id number] [place] Urea nitrogen [Mass/Vol] 24 mg/dL High 7-21 [facility] Comment on above: Order Comment: Sabino boogie Type: BLOOD SPECIMENOrdering Facility: [facility] Address: [address] [place] [address] Performed By: #### 3 016-3, 61974-6, LIPNF, 50116-5 ####[facility] LABCLIA [id number] [place] [address] [place] HbA1c (Bld)on 07-02-2024 Average glucose Estimated from glycated hemoglobin (Bld) [Mass/Vol] 117 mg/dL Normal [facility] Comment on above: Order Comment: [facility] Type: BLOOD SPECIMENOrdering Facility: [facility] Address: [address] [place] [address] Result Comment: eAG: (Estimated average glucose) is a calculated value from HgbA1c and is personal service representative of the average blood glucose level in the last 2-3 month period. Performed By: #### 5 5454-3 ####[facility] LABIA [id number] [address] STATES OF [facility] HbA1c (Bld) [Mass fraction] 5.7 % High 4.3-5.6 [facility] Comment on above: Order Comment: Sabino boogie Type: BLOOD SPECIMENOrdering Facility: [facility] Address: [address] [place] [address] Result Comment: [place] Diabetes Association guidelines indicate that patients with HgbA1c in the range 5.7-6.4% are at increased risk for development of diabetes, and intervention by lifestyle modification may be beneficial. HgbA1c greater or equal to 6.5% is considered diagnostic of diabetes. Performed By: #### 5 5454-3 ####[facility] LABIA [id number] [place] [address] [place] LIPID PANEL, NONFASTINGon Cholesterol [Mass/Vol] 136 mg/dL Normal <200 [facility] Comment on above: Order Comment: Sabino keagan Type: BLOOD SPECIMENOrdering Facility: [facility] Address: [address] [place] [address] Result Comment: <200 mg/dL, Desirable 200-239 mg/dL, Borderline high >239 mg/dL, High Performed By: #### 3 016-3, 16035-1, LIPNF, 76286-0 ####[facility] LABCLIA [id number] [place] [address] [place] HDL CHOLESTEROL, NF 41 mg/dL Normal >39 [facility] Comment on above: Order Comment: Speci men Type: BLOOD SPECIMENOrdering Facility: [facility] Address: [address] [place] [address] Result Comment: 40-5 9 mg/dL, Acceptable >59 mg/dL, High: Negative risk factor for coronary heart disease <40 mg/dL, Low: Positive risk factor for coronary heart disease Performed By: #### 3 016-3, 51738-6, LIPNF, ####[facility] LABCLIA [id number] [place] [address] [place] LDL CHOLESTEROL, NF 44 mg/dL Normal <100 [facility] Comment on above: Order Comment: Travisi men Type: BLOOD SPECIMENOrdering Facility: [facility] Address: [address] [place] [address] Result Comment: <100 mg/dL, Optimal 100-129 mg/dL, Near optimal/above optimal 130-159 mg/dL, Borderline high 160-189 mg/dL, High >189 mg/dL, Very high Secondary prevention optimal LDL Cholesterol levels are recommended to be < 70 mg/dL Performed By: #### 3 016-3, 00693-6, LIPNF, 77972-0 ####[facility] LABCLIA [id number] [place] [address] [place] LDL/HDL RATIO, NF 1.07 mg/dL Normal <2.54 [facility] Comment on above: Order Comment: Speci men Type: BLOOD SPECIMENOrdering Facility: [facility] Address: [address] [place] [address] Result Comment: Refe radhace: 1. National Cholesterol Education Program ATP III Guideline At-A-Glance Quick Desk Reference: National Heart, Lung, and Blood [place]. National Institutes of Health. 2001: NIH Publication No. 01-3305. 2. An International Atherosclerosis Society position paper: global recommendations for the management of dyslipidemia: executive summary, Atherosclerosis. 2014: 232(2):410-413. Performed By: #### 3 016-3, 51958-6, LIPNF, 09934-6 ####[facility] LABCLIA [id number] [place] [address] [place] NON HDL CHOL, NF 95 mg/dL Normal <130 [facility] Comment on above: Order Comment: Speci men Type: BLOOD SPECIMENOrdering Facility: [facility] Address: [address] [place] [address] Result Comment: <130 mg/dL, Optimal 130-159 mg/dL, Near optimal/above optimal 160-189 mg/dL, Borderline high 190-219 mg/dL, High >219 mg/dL, Very high Secondary prevention optimal non HDL Cholesterol levels are recommended to be <100 mg/dL Performed By: #### 3 016-3, 67099-6, LIPNF, ####[facility] LABCLIA [id number] [address] [place] T CHOL/HDL RATIO NF 3.32 mg/dL Normal <5.10 [facility] Comment on above: Order Comment: Speci men Type: BLOOD SPECIMENOrdering Facility: [facility] Address: [address] [place] [address] Performed By: #### 3 016-3, 64009-5, LIPNF, 67525-9 ####[facility] LABCLIA [id number] [place] [address] [place] TRIGLYCERIDES, NF 256 mg/dL High <150 [facility] Comment on above: Order Comment: Speci men Type: BLOOD SPECIMENOrdering Facility: [facility] Address: [address] [place] [address] Result Comment: <150 mg/dL, Normal 150-199 mg/dL, Borderline high 200-499 mg/dL, High >499 mg/dL, Very high Performed By: #### 3 016-3, 84176-4, LIPJOYD, ####[facility] LABCLIA [id number] [place] [address] [place] VLDL CHOLESTEROL, NF 51 mg/dL High <30 [facility] Comment on above: Order Comment: Speci men Type: BLOOD SPECIMENOrdering Facility: [facility] Address: [address] [place] [address] Performed By: #### 3 016-3, , JOSE MARTIN, ####[facility] LABCLIA [id number] [place] [address] [place] Magnesium SerPl-mCncon 07-02 Magnesium [Mass/Vol] 2.1 mg/dL Normal 1.7-2.3 [facility] Comment on above: Order Comment: Speci men Type: BLOOD SPECIMENOrdering Facility: [facility] Address: [address] [place] [address] Performed By: #### 3 016-3, , LIPJODY, ####[facility] LABCLIA [id number] [place] [address] [place] TSH SerPl-aCncon 07-02-2024 TSH Qn 2.080 m[IU]/L Normal 0.270-4.200 [facility] Comment on above: Order Comment: Speci men Type: BLOOD SPECIMENOrdering Facility: [facility] Address: [address] [place] [address] Performed By: #### 3 016-3, 82718-6, LIPJODY, ####[facility] LABCLIA [id number] [place] [address] [place] Urinalysis complete panel (U )on 07-02-2024 Bacteria LM.HPF (Urine sed) [#/Area] Negative Normal Negative [facility] Comment on above: Order Comment: Speci men Type: URINE SPECIMENOrdering Facility: [facility] Address: [address] [place] [address] Performed By: #### 2 4356-8 ####[facility] LABCLIA [id number] [place] [address] [place] Bilirubin Ql (U) Negative Normal Negative [facility] Comment on above: Order Comment: Speci men Type: URINE SPECIMENOrdering Facility: [facility] Address: [address] [place] [address] Performed By: #### 2 4356-8 ####[facility] LABCLIA [id number] [place] [address] [place] Clarity (Unsp spec) Clear Normal Clear [facility] Comment on above: Order Comment: Speci men Type: URINE SPECIMENOrdering Facility: [facility] Address: [address] [place] [address] Performed By: #### 2 4356-8 ####[facility] LABCLIA [id number] [place] [address] [place] Color (U) Yellow Normal Yellow [facility] Comment on above: Order Comment: Speci men Type: URINE SPECIMENOrdering Facility: [facility] Address: [address] [place] [address] Performed By: #### 2 4356-8 ####[facility] LABCLIA [id number] [place] [address] [place] Epithelial cells LM.HPF (Urine sed) [#/Area] Few Normal [facility] Comment on above: Order Comment: Speci men Type: URINE SPECIMENOrdering Facility: [facility] Address: [address] [place] [address] Performed By: #### 2 4356-8 ####[facility] LABCLIA [id number] [place] [address] [place] Glucose Test strip (U) [Mass/Vol] Negative Normal Negative [facility] Comment on above: Order Comment: Speci men Type: URINE SPECIMENOrdering Facility: [facility] Address: [address] [place] [address] Performed By: #### 2 4356-8 ####[facility] LABCLIA [id number] [place] [address] [place] Hemoglobin Ql (U) Negative Normal Negative [facility] Comment on above: Order Comment: Speci men Type: URINE SPECIMENOrdering Facility: [facility] Address: [address] [place] [address] Performed By: #### 2 4356-8 ####[facility] LABCLIA [id number] [place] [address] [place] Hyaline casts (Urine sed) [#/Area] 1-3 /LPF Abnormal 0 /LPF [facility] Comment on above: Order Comment: Speci men Type: URINE SPECIMENOrdering Facility: [facility] Address: [address] [place] [address] Performed By: #### 2 4356-8 ####[facility] LABCLIA [id number] [place] [address] [place] Ketones Ql (U) Negative Normal Negative [facility] Comment on above: Order Comment: Speci men Type: URINE SPECIMENOrdering Facility: [facility] Address: [address] [place] [address] Performed By: #### 2 4356-8 ####[facility] LABCLIA [id number] [place] [address] [place] Leukocyte esterase Test strip Ql (U) 2+ Abnormal Negative [facility] Comment on above: Order Comment: Speci men Type: URINE SPECIMENOrdering Facility: [facility] Address: [address] [place] [address] Performed By: #### 2 4356-8 ####[facility] LABCLIA [id number] [place] [address] [place] Nitrite Ql (U) Negative Normal Negative [facility] Comment on above: Order Comment: Speci men Type: URINE SPECIMENOrdering Facility: [facility] Address: [address] [place] [address] Performed By: #### 2 4356-8 ####[facility] LABCLIA [id number] [place] [address] [place] pH (U) 7.0 [pH] Normal <8.5 [facility] Comment on above: Order Comment: Speci men Type: URINE SPECIMENOrdering Facility: [facility] Address: [address] [place] [address] Performed By: #### 2 4356-8 ####[facility] LABCLIA [id number] [place] [address] [place] Protein (U) [Mass/Vol] Negative Normal Negative [facility] Comment on above: Order Comment: Speci men Type: URINE SPECIMENOrdering Facility: [facility] Address: [address] [place] [address] Performed By: #### 2 4356-8 ####[facility] LABIA [id number] [place] [address] [place] RBC LM.HPF (Urine sed) [#/Area] 0-2 /HPF Normal 0-2 /HPF [facility] Comment on above: Order Comment: Speci men Type: URINE SPECIMENOrdering Facility: [facility] Address: [address] [place] [address] Performed By: #### 2 4356-8 ####[facility] LABCLIA [id number] [place] [address] [place] Specific gravity (U) [Rel density] 1.010 Normal 1.005-1.030 [facility] Comment on above: Order Comment: Speci men Type: URINE SPECIMENOrdering Facility: [facility] Address: [address] [place] [address] Performed By: #### 2 4356-8 ####[facility] LABIA [id number] [place] [id number] [place] Urobilinogen Ql (U) 1.0 EU/dL Normal 0.2-1.0 EU/dL [facility] Comment on above: Order Comment: Speci men Type: URINE SPECIMENOrdering Facility: [facility] Address: [address] [place] [address] Performed By: #### 2 4356-8 ####[facility] LABIA [id number] [place] [id number] [place] WBC LM.HPF (Urine sed) [#/Area] 11-20 /HPF Abnormal 0-5 /HPF [facility] Comment on above: Order Comment: Speci men Type: URINE SPECIMENOrdering Facility: [facility] Address: [address] [place] [address] Performed By: #### 2 4356-8 ####[facility] LABIA [id number] [place] [id number] [place] Vit B12 [facility] 01-24-2 025 Cobalamin (Vitamin B12) [Mass/Vol] 618 pg/mL Normal 232-1245 [facility] Comment on above: Order Comment: Speci men Type: BLOOD SPECIMENOrdering Facility: [facility] Address: [address] [place] [address] Performed By: #### 2 132-9 ####[facility] LABIA [id number] [place] [id number] [place] Gastroenterology Visit Repor ton 03-25-2024 Gastroenterology Visit Report [facility] [address] [place] [address] OFFICE VISIT Date of Service: 03/25/24 MR#: [id number] Acct: [id number] Name: NIDHI NÚÑEZ Rep #: [id number] : 1940 Provider: Kevon Crum DO Age/Sex: 84/F Location: [facility] Status: Signed Intake Vital Signs 01/29/23 15:17 03/21/24 12:28 Height 5 ft 2 in 5 ft 2 in Intake Visit Reasons: 6 month f/u Carry Out Clerk Required: No Accompanied by: Granddaughter Is patient in pain?: No Allergies adhesive tape Allergy (Intermediate, Verified 03/25/24 15:31) Other codeine Allergy (Verified 03/25/24 15:31) Hives Medications ???Medication ???Instructions ???Recorded ???Confirmed ???Type zolpidem 5 mg tablet 5 mg PO QHS PRN PRN insomnia #14 08/15/14 03/25/24 Rx TABLETS cyanocobalamin (vitamin B-12) 500 500 mcg PO DAILY 09/04/22 03/25/24 History mcg tablet doxazosin 1 mg tablet 1 mg PO DAILY 09/04/22 03/25/24 History meloxicam 15 mg tablet 15 mg PO DAILY 09/04/22 03/25/24 History omeprazole 40 mg capsule,delayed 40 mg PO DAILY 09/04/22 03/25/24 History release rosuvastatin 20 mg tablet 20 mg PO DAILY 09/04/22 03/25/24 History tolterodine 4 mg capsule,extended 4 mg PO DAILY 09/04/22 03/25/24 History release 24 hr ([place]) doxazosin 2 mg tablet 2 mg PO DAILY 01/29/23 03/25/24 History ubntpq-vifgkoca-vrwky se 1 cap PO TID 1 month #100 caps 03/16/24 03/25/24 Rx 36,000-114,000-180,00 0 unit capsule,delay rel (Creon) lisinopril 40 mg tablet 40 mg PO DAILY 03/25/24 03/25/24 History metoprolol tartrate 25 mg tablet 100 mg PO DAILY 03/25/24 03/25/24 History Have you fallen in the past year?: Yes Nurse's Note: omeprazole and creon effective PFSH Medical History Acute gastritis without mention of hemorrhage Age related cataract Arthritis of both knees Backache Diverticulosis Elevated hemoglobin A1c Epigastric pain GERD (gastroesophageal reflux disease) Hypoglycemia IBS (irritable bowel syndrome) Low vitamin B12 level Macular degeneration, left eye Numbness and tingling of right leg Overactive bladder Upper abdominal pain Surgical History S/P anterior colporrhaphy S/P total abdominal hysterectomy Social History Smoking Status: Former smoker quit date: 08/13/14 pack-years: 1 alcohol intake: never HPI HPI Details: NIDHI NÚÑEZ, is a 84 F who presents to the office today for follow up. Biochemical CBC, CMP, cholesterol, amylase, lipase without pertinent abnormality ? Triglycerides H163, A1c H5.9 ? CT abd/pel 08.15.22 hepatic fatty infiltration; mild dilation of CBD; normal gallbladder; small sliding hiatal hernia; vasculature WNL. *BGI established 11.15.22 with PO intake she has been having bloating and upper abdominal discomfort with upset stomach. BM typically occur daily with normal stool and watery stools but she is not able to describe this further. Has not attempted with symptoms; omeprazole QD has been the most helpful. Liquids consist of mostly coffee, orange juice and occasional pop. Most consistent meal is dinner, last night she had a pork chop seasoned with shake and bake, scalloped potatoes and broccoli. ? Biochemical ESR, CMP, ferritin, LFT, LDH, CRP, TSH without pertinent abnormality ? cANCA H1:160, celiac + ? Stool Calprotectin, fat (total increased), C.Difficile, blood, EP, lactoferrin, O/P, giardia WNL.? Elastase L74 Contact 12.04.22 with results and will start Creon and gluten free diet. ? CT abd/pel 12.30.22 fibrotic changes to lung bases; CBD measures 1.2cm; urinary bladder prolapse. Contact 01.08.[address] results; Creon has been helpful but continues with loose stools. Increase Creon to two caps with meals.OV OV 03.31.23 abdominal cramping and loose stools continue to be an issue with diet when she eats gluten. Continues with Creon, two capsules and this is helpful. OV 10.01.23 Pt states she is having BM daily. Irregular consistency. Pt continues taking Creon and Omeprazole. Denies blood in stool but notices blood sometimes when she wipes if she is constipated. OV 03/25/24 ROS Const Constitutional: Positive for fatigue, frequent falls, headache(s) and weight change ENT ENT: Positive for headache(s) and difficulty swallowing Gastro GI: Positive for abdominal pain, bloating, change in bowel habits, constipation, diarrhea, diffi (more content not included)... Normal [facility] Summary on 03-21-2024 Emergency Department Summary [facility] Medical Records Department [address] [facility] [place] [address] Emergency Department Summary 03/21/24 MR#: [id number] Acct: [id number] Name: NIDHI NÚÑEZ Rep #: [id number] : 1940 84 From: Phani Alex DO PCP: Dr. Dustin Hoang MD Status:DEP ER Location: ED HPI HPI - Fall History of Present Illness Chief Complaint: Fall Narrative Narrative: Chief complaint and HPI: Fall. 84-year-old female presents for evaluation after mechanical fall. Patient states she was outside pulling weeds in her garden when she lost her balance and fell. She states she fell on her butt and left hip. She does have a nerve stimulator in this area for chronic back pain and bilateral lower extremity pain. Patient states that she hit her [employer] alert button and EMS arrived. Patient endorses pain in her left buttocks and slightly into the hip. She denies hitting her head. No neck pain. Denies any new back pain. Denies lightheadedness, syncope, shortness of breath, chest pain, abdominal pain, nausea, vomiting, diarrhea, dysuria. Patient states it was strictly a mechanical fall. Review of systems: See HPI Medications: As listed on the chart Allergies: As listed on the chart PFSH: Per chart Vital signs: As listed on the chart. Reviewed. Physical exam: Gen: A O x3, NAD Head: Normocephalic, atraumatic Eyes: No sclera icterus, conjunctiva clear, PERRL, EOMI ENT: Moist oist mucous membranes Neck: Trachea midline, No JVD, Nontender, full range of motion CV: RRR, no murmurs, no chest wall TTP Resp: Lungs CTA BL, no w/r/c GI: Abd soft, non-distended, non-tender, no r/r/g Musc: Moves all extremity, no deformity, no spinal TTP, no corry step-offs, tender to palpation in the area of the tailbone as well as left gluteal muscle, neurostimulator is palpated in this area, she has mild tenderness in the left hip with movement of the left lower extremity, nontender and no pain with movement of the bilateral knees, DP/PT pulses plus 2 out of 4 Skin: Warm, dry, intact Neuro: Alert, oriented, grossly intact, sensation intact, GCS 15 Psych: Cooperative, appropriate mood and affect [facility] Medical History Acute gastritis without mention of hemorrhage Age related cataract Arthritis of both knees Backache Diverticulosis Elevated hemoglobin A1c Epigastric pain GERD (gastroesophageal reflux disease) Hypoglycemia IBS (irritable bowel syndrome) Low vitamin B12 level Macular degeneration, left eye Numbness and tingling of right leg Overactive bladder Upper abdominal pain Home Medications ???Medication ???Instructions ???Recorded ???Last Taken ???Type metoprolol tartrate 25 mg tablet 25 mg PO DAILY 08/14/14 Unknown History albuterol sulfate 90 mcg/actuation 18 g IH 4X/DAY PRN PRN sob ##1 08/15/14 Unknown Rx aerosol inhaler (Ventolin HFA) azithromycin 500 mg tablet 500 mg PO DAILY #5 tabs 08/15/14 Unknown Rx (Zithromax) zolpidem 5 mg tablet 5 mg PO QHS PRN PRN insomnia ##14 08/15/14 Unknown Rx cyanocobalamin (vitamin B-12) 500 500 mcg PO DAILY 09/04/22 Unknown History mcg tablet doxazosin 1 mg tablet 1 mg PO DAILY 09/04/22 Unknown History lisinopril 40 mg tablet 40 mg PO DAILY 09/04/22 Unknown History meloxicam 15 mg tablet 15 mg PO DAILY 09/04/22 Unknown History omeprazole 40 mg capsule,delayed 40 mg PO DAILY 09/04/22 Unknown History release rosuvastatin 20 mg tablet 20 mg PO DAILY 09/04/22 Unknown History tolterodine 4 mg capsule,extended 4 mg PO DAILY 09/04/22 Unknown History release 24 hr (Detrol LA) doxazosin 2 mg tablet 2 mg PO DAILY 01/29/23 Unknown History ixgvgl-dsgzeskv-ixlny se 1 cap PO TID 1 month #100 caps 03/16/24 Unknown Rx 36,000-114,000-180,00 0 unit capsule,delay rel (Creon) Allergy/AdvReac Type Severity Reaction Status Date / Time adhesive tape Allergy Intermediate Other Verified 09/04/22 14:25 codeine Allergy Hives Verified 09/04/22 14:25 Surgical History S/P anterior colporrhaphy S/P total abdominal hysterectomy Social History Smoking Status: Former smoker quit date: 08/13/14 pack-years: 1 alcohol intake: never EXAM Physical Exam Const Vital Signs: 03/21/24 12:28 03/21/24 12:42 03/21/24 14:57 Temperature 97 F L 98.1 F Temperature Source Oral Pulse Rate 58 L 81 Respiratory Rate 18 16 Respiratory Effort Normal Respiratory Depth Normal Respiratory Pattern Normal Blood Pressure 127/54 H Blood Pressure Mean 78 Pulse Ox 94 100 Oxygen Delivery Method Room Air Room Air MDM MDM MDM Narrative Medical decision making narrative: 84-year-old female with history of HTN (more content not included)... Normal [facility] HIP, UNI W/ Pelvis 2-3 Views on 03-21-2024 HIP, UNI W/ Pelvis 2-3 Views [facility] Imaging Services [address] [place], [place] [id number] HIP, UNI W/ Pelvis 2-3 Views MR#: [id number] Acct: [id number] Name: NIDHI NÚÑEZ Shira Rep #: [id number] : 1940 F 84 From: Clay Murphy MD PCP: Dr. Dustin Hoang MD Status: REG ER Study: HIP, UNI W/ Pelvis 2-3 Views Date of Exam: Exam# [id number] Ordering Dr: Phani Alex DO [id number] STUDY: X-RAY - PELVIS AND LEFT HIP REASON FOR EXAM: Female, 84 years old. Fall, pain TECHNIQUE: 3 views of the pelvis and hip. COMPARISON: 03/01/2024 FINDINGS: There is a non-specific bowel gas pattern. Normal visualized soft tissue structures. Normal bilateral iliac wings, sacroiliac joints and visualized sacrum. Normal bilateral superior and inferior pubic rami. There are degenerative changes of the pubic symphysis with articular narrowing and sclerosis. Normal bilateral ischial tuberosities. Normal visualized femoral head. Normal acetabulum. Normal hip joint. RAD/HIP, UNI W/ Pelvis 2-3 Views IMPRESSION: No acute fracture or dislocation. Electronically Signed: Clay Murphy MD at 13:58 EDT , CC: Dr. Phani Alex DO; Dr. Dustin Hoang MD Room Attendant: Signed Normal [facility] Sacrum-Coccyx min 2 Viewson 03-21-2024 Sacrum-Coccyx min 2 Views [facility] Imaging Services [address] [place] [address] Sacrum-Coccyx min 2 Views MR#: [id number] Acct: [id number] Name: NIDHI NÚÑEZ Rep #: [id number] : 1940 F 84 From: Clay Murphy MD PCP: Dr. Dustin Hoang MD Status: REG ER Study: Sacrum-Coccyx min 2 Views Date of Exam: Exam# [id number] Ordering Dr: Phani Alex DO [id number] STUDY: X-RAY - SACRUM/COCCYX REASON FOR EXAM: Female, 84 years old. Pain TECHNIQUE: 3 view(s) of the sacrum and coccyx were obtained. COMPARISON: None. FINDINGS: Normal bilateral sacroiliac joints. Normal visualized sacral ala and fused sacral bodies. Normal sacrococcygeal junction with a normal angulation. Normal coccygeal segments. The presacral soft tissue structures are unremarkable. RAD/Sacrum-Coccyx min 2 Views IMPRESSION: Normal x-rays of the sacrum and coccyx. Electronically Signed: Clay Murphy MD at 14:01 EDT , CC: Dr. Phani Alex DO; Dr. Dustin Hoang MD Room Attendant: Signed Normal [facility] Hips B/L min 2 views w/ Pelv alda 03-01-2024 Hips B/L min 2 views w/ Pelvis [facility] Imaging Services [address] [place], [place] [id number] Hips B/L min 2 views w/ Pelvis MR#: [id number] Acct: [id number] Name: NIDHI NÚÑEZ Rep #: [id number] : 1940 F 83 From: Filiberto key DO PCP: Dr. uDstin Hoang MD Status: REG CLI Study: Hips B/L min 2 views w/ Pelvis Date of Exam: 0 03/01/24 Exam# [id number] Ordering Dr: Dustin Giles MD [id number] EXAM: XR BILATERAL HIPS WITH PELVIS WHEN PERFORMED, 2 VIEWS CLINICAL INDICATION: PAIN TECHNIQUE: Frontal view of the bilateral hips with pelvis when performed. COMPARISON: CT abdomen and pelvis, 12/30/2022 FINDINGS: BONES/JOINTS: Symmetric pubic bone sclerosis. Mild acetabular hypertrophy and sclerosis bilaterally. Symmetric SI joint arthrosis. Degenerative changes in the lower lumbar spine. No displaced fracture. No widening of the pubic symphysis. SOFT TISSUES: No significant abnormality. No soft tissue swelling or gas. TUBES, LINES AND DEVICES: Spinal stimulator device present. RAD/Hips B/L min 2 views w/ Pelvis IMPRESSION: Degenerative changes. No acute osseous abnormalities. Electronically Signed: Filiberto Flores DO at 21:44 EDT , CC: Dr. Dustin Hoang MD; Dr. Dustin Giles MD Room Attendant: Signed Normal [facility] Knee 4 or More Viewson 03-01 Knee 4 or More Views [facility] Imaging Services [address] [address] [address] [place], [place] [address] Knee 4 or More Views MR#: [id number] Acct: [id number] Name: NIDHI NÚÑEZ Rep #: [id number] : 1940 F 83 From: Filiberto key DO PCP: Dr. Dustin Hoang MD Status: REG CLI Study: Knee 4 or More Views Date of Exam: 03/01/24 Exam# [id number] Ordering Dr: Dustin Giles MD [id number] EXAM: XR RIGHT KNEE COMPLETE, 4 OR MORE VIEWS CLINICAL INDICATION: PAIN TECHNIQUE: Four or more views of the right knee. COMPARISON: No relevant prior studies available. FINDINGS: BONES/JOINTS: Chondrocalcinosis. Joint space narrowing. Marginal osteophytosis of the weightbearing and patellofemoral compartments. Trace joint effusion. No acute fracture. No subluxation. Normal alignment. No sclerotic or destructive changes observed. SOFT TISSUES: No significant abnormality. No soft tissue swelling or gas. No radiopaque foreign body. RAD/Knee 4 or More Views IMPRESSION: Degenerative changes and trace joint effusion. No acute osseous findings. Electronically Signed: Filibertojonatan Flores DO at 21:57 EDT , CC: Dr. Dustin Hoang MD; Dr. Dustin Giles MD Room Attendant: Signed Normal [facility] Knee 4 or More Views [facility] Imaging Services [address] [place], [place] [address] Knee 4 or More Views MR#: [id number] Acct: [id number] Name: NIDHI NÚÑEZ Rep #: [id number] : 1940 F 83 From: Filiberto Ganesh key DO PCP: Dr. Dustin Hoang MD Status: [facility] Study: Knee 4 or More Views Date of Exam: 03/01/24 Exam# [id number] Ordering Dr: Dustin Giles MD [id number] EXAM: XR LEFT KNEE COMPLETE, 4 OR MORE VIEWS CLINICAL INDICATION: PAIN TECHNIQUE: Four or more views of the left knee. COMPARISON: No relevant prior studies available. FINDINGS: BONES/JOINTS: Chondrocalcinosis. Joint space narrowing. Marginal osteophytosis of the weightbearing and patellofemoral compartments. Trace joint effusion. Degenerative changes and trace joint effusion. No acute osseous findings. No subluxation. Normal alignment. No sclerotic or destructive changes observed. SOFT TISSUES: No significant abnormality. No soft tissue swelling or gas. No radiopaque foreign body. RAD/Knee 4 or More Views IMPRESSION: No acute findings in the left knee. Electronically Signed: Filiberto Flores DO at 21:45 EDT , CC: Dr. Dustin Hoang MD; Dr. Dustin Giles MD Room Attendant: Signed [facility] 01-09-2024 [facility] Telephone (FAMPWS) NIDHI NÚÑEZ ([id number]) 1940 F Date Time Provider Department 01/09/24 CHARLIE BRADLEY FAMWS During your visit today, we recorded the following information about you: Charlie Bradley MA 01/09/2024 12:41 PM Signed Scan on 01/08/2024 3:33 PM by Provider, ExternalVÍCTOR: Neurology Please review EMG results. RAFIA Koch Jeffrey A, MD 01/09/2024 3:30 PM Signed Let patient know stress test was normal. Alma Delia Irvin RN 01/09/2024 3:57 PM Signed Pt called and is notified of providers results. Pt voices understanding. Alma Delia Irvin RN Allergies As of Date: 01/09/2024 Noted Allergy Reaction ADHESIVE TAPE (ROSINS) 02/15/2011 2 - Rash CODEINE 10/09/2006 8 - GI Upset HCTZ (THIAZIDES) 07/25/2022 14 - Other: See Comments Comments: Made dizzy Date Reviewed: 12/01/2023 Reviewed by: Dustin Hoang MD - Fully Assessed Reason for Visit: Results [95] Prescriptions as of 01/09/2024 - metoprolol succinate ER (TOPROL XL) 100 mg Take 1 tablet by mouth once daily. - rosuvastatin (CRESTOR) 20 mg tablet Take 1 tablet by mouth daily at bedtime. - lisinopril (ZESTRIL) 40 mg tablet Take 1 tablet by mouth two times a day. - tolterodine ER (DETROL LA) 4 mg 24 hr capsule Take 1 capsule by mouth once daily. - omeprazole (PRILOSEC) 40 mg capsule Take 1 capsule by mouth daily before breakfast. 1/2 hr before meal. - doxazosin (CARDURA) 2 mg tablet Take 1 tablet by mouth once daily. - CREON 36,000-114,000- 180,000 unit delayed release capsule - vit C/E/Zn/coppr/lutein/z eaxan (PRESERVISION AREDS-2 ORAL) Take by mouth. - cyanocobalamin (VITAMIN B-12) 500 mcg tablet Take 1 tablet by mouth once daily. - nystatin (MYCOSTATIN) powder Apply 1 application to affected area twice daily. - diclofenac (VOLTAREN) 1 % topical gel APPLY 2 GRAMS TO AFFECTED AREA FOUR TIMES DAILY. - vit A/vit C/vit E/zinc/copper (OCUVITE PRESERVISION ORAL) Take by mouth twice daily. Problem List As Of Date 01/09/2024 Noted Resolved Family history of malignant neoplasm of gastroi*10/09/2006 Osteoarth NOS-other site [M19.90] 10/09/2006 Mixed hyperlipidemia [E78.2] 10/14/2006 Ex-smoker [Z87.891] 02/01/2009 Irritable bowel disease [K58.9] 02/01/2009 Backache [M54.9] 02/17/2009 Essential hypertension [I10] 02/05/2015 GERD (gastroesophageal reflux disease) [K21.9] 02/05/2015 Medicare annual wellness visit, subsequent [Z00*05/09/2017 Screening for colon cancer [Z12.11] 05/09/2017 Chronic pain of both knees [M25.561, M25.562, G*02/05/2018 Arthritis of both knees [M17.0] 02/05/2018 Macular degeneration [H35.30] 08/07/2018 Age-related cataract [H25.9] 08/07/2018 Overactive bladder [N32.81] 08/07/2018 Elevated hemoglobin A1c [R73.09] 08/09/[address] [Z78.9] 04/17/2020 Advance directive discussed with patient [Z71.8*12/19/2021 Chronic pain syndrome [G89.4] 12/19/2021 Medication management [Z79.899] 12/19/2021 Low serum vitamin B12 [E53.8] 12/23/2021 Hypercalcemia [E83.52] 07/25/2022 Stage 3a chronic kidney disease (HCC) [N18.31] 11/21/2022 SOB (shortness of breath) [R06.02] 12/17/2022 PAC (premature atrial contraction) [I49.1] 01/08/2023 Celiac disease [K90.0] 11/21/2023 Bilateral carotid artery stenosis [I65.23] 01/01/2024 Encounter Status:Closed by ALMA DELIA IRVIN on 01/09/24 Normal [facility] Stress Reporton 01-08-2024 Stress Report [facility] Cardiovascular Services [address] [place] [address] MR#: [id number] Acct: [id number] Name: NIDHI NÚÑEZ Rep #: [id number] : 1940 83 From: John Alba MD Primary Care: Dr. Dustin Hoang MD Status: REG CLI Referring Dr: Dustin Hoang MD Sex: F C Stress Test Report Date: 01/06/2024 Procedure: Pharmacologic stress nuclear imaging study Indications: Chest pain Consent: Per the patient Procedure: The patient underwent pharmacologic (Regadenoson) evaluation with a peak heart rate of 73 beats per minute (53%predicted maximal heart rate) and a peak blood pressure of 138/86 mmHg. The baseline ECG demonstrated normal sinus rhythm. EKG during lexiscan infusion revealed no significant ischemic changes. EKG post infusion revealed no significant ischemic changes [There were no cardiac dysrhythmias pretest, during pharmacologic infusion, or recovery]. [There was no complaint of chest discomfort during pharmacologic infusion or recovery]. The examination was discontinued secondary to completion of protocol. Impression: 1. Lexiscan stress test test is negative for Lexiscan infusion induced EKG changes of ischemia. 2. Lexiscan stress test test is negative for Lexiscan infusion induced chest pain. 3. Results of the nuclear portion of the test is as below Myocardial perfusion imaging study: Technique: The patient was injected with 12 millicuries of technetium 99m Cardiolite and subsequently rest SPECT Cardiolite nuclear imaging was obtained in the horizontal long, vertical long, and short axis views. The patient underwent pharmacologic [Regadenoson 0.4mg] evaluation. Please see above for details. The patient was injected with 34.9 millicuries of technetium 99m Cardiolite and subsequently stress SPECT Cardiolite nuclear imaging was obtained in the horizontal long, vertical long, and short axis views. A gated Cardiolite study at peak stress was obtained. Interpretation: Rest and stress SPECT Cardiolite nuclear imaging status post realignment, normalization, and attenuation correction demonstrate no evidence of significant ischemia or infarction. Gated images reveal no significant regional wall motion abnormalities. The reported LVEF is greater than 70%. Impression: 1. There is no evidence of significant ischemia or infarction. 2. Estimated ejection fraction is greater than 70%. This note was generated with [employer]plex software. It may contain incorrect words, spelling, and punctuation that were not noted in checking the note before signing. 01/08/241528 Date John Alba MD CC: Dr. Dustin Hoang MD Date Dictated: 01/08/241525 Date Transcribed: 01/08/241525 Room Attendant: MARI Signed Normal [facility] US CAROTID ARTERIES [facility] 12-31-2023 US CAROTID ARTERIES [facility] Non-Invasive Vascular Laboratory [facility] Carotid Duplex Bilateral/Complete Date of service/time: 12/31/2023 3:19:28 PM Name: MRS. NIDHI NÚÑEZ Date of : 1940 Age: 83 years Gender: F Clinical Indication Dizziness. TECHNIQUE -------- A carotid duplex ultrasound examination was performed, including grayscale imaging and color Doppler and spectral Doppler examination of the below mentioned arteries. FINDINGS -------- RIGHT SIDE Common carotid artery: Proximal: PSV: 60 cm/s. EDV: 11 cm/s. Mid: PSV: 47 cm/s. EDV: 12 cm/s. Distal: PSV: 34 cm/s. EDV: 10 cm/s. Mild heterogeneous plaque from proximal to distal. Internal carotid artery: Origin: PSV: 28 cm/s. EDV: 7 cm/s. Proximal: PSV: 37 cm/s. EDV: 15 cm/s. Mid: PSV: 67 cm/s. EDV: 20 cm/s. Distal: PSV: 48 cm/s. EDV: 16 cm/s. Mild heterogeneous plaque at origin. ICA/CCA Ratio: 2.0 External carotid artery: Origin: PSV: 38 cm/s. EDV: 8 cm/s. Subclavian artery: Proximal: PSV: 77 cm/s. EDV: 0 cm/s. Vertebral artery: PSV: 54 cm/s. EDV: 13 cm/s. LEFT SIDE Common carotid artery: Proximal: PSV: 50 cm/s. EDV: 12 cm/s. Mid: PSV: 57 cm/s. EDV: 16 cm/s. Distal: PSV: 43 cm/s. EDV: 14 cm/s. Mild heterogeneous plaque from mid to distal. Internal carotid artery: Origin: PSV: 42 cm/s. EDV: 13 cm/s. Proximal: PSV: 47 cm/s. EDV: 16 cm/s. Mid: PSV: 69 cm/s. EDV: 20 cm/s. Distal: PSV: 59 cm/s. EDV: 20 cm/s. Mild heterogeneous plaque at origin. ICA/CCA Ratio: 1.6 External carotid artery: Origin: PSV: 44 cm/s. EDV: 11 cm/s. Subclavian artery: Proximal: PSV: 116 cm/s. EDV: 0 cm/s. Vertebral artery: PSV: 41 cm/s. EDV: 13 cm/s. IMPRESSION RIGHT SIDE Common carotid artery: Plaque visualized without evidence of hemodynamically significant stenosis. Internal carotid artery: 20-39% stenosis. Tortuous vessel at mid . Vertebral artery: Patent and antegrade flow noted. Innominate artery: Not visualized. Subclavian artery: Patent at proximal. Unable to visualize origin. LEFT SIDE Common carotid artery: Plaque visualized without evidence of hemodynamically significant stenosis. Internal carotid artery: 20-39% stenosis. Tortuous vessel from proximal to mid . Vertebral artery: Patent and antegrade flow noted. Subclavian artery: Patent. Technologist: Chyna Martinez RVT, RDIL Ordering physician: DUSTIN HOANG Interpreting physician: TERESA Ricks DO Final CC [employer] [facility] Image : [id number] See Link below for Image Normal [facility] Tomás 12-16-2023 [facility] Telephone (FAMPWS) NIDHI NÚÑEZ ([id number]) 1940 F Date Time Provider Department 12/16/23 DUSTIN HOANG During your visit today, we recorded the following information about you: Dustin Hoang MD 12/16/2023 3:06 PM Signed Let patient know her walking test showed her oxygenation on room air was normal. Yeni Thomas LPN 12/16/2023 3:15 PM Signed Left message to return call Jenny Turner LPN 12/16/2023 4:40 PM Signed Spoke with pt and information listed below given. Pt verbalizes understanding. Jenny Turner LPN Allergies As of Date: 12/16/2023 Noted Allergy Reaction ADHESIVE TAPE (ROSINS) 02/15/2011 2 - Rash CODEINE 10/09/2006 8 - GI Upset HCTZ (THIAZIDES) 07/25/2022 14 - Other: See Comments Comments: Made dizzy Date Reviewed: 12/01/2023 Reviewed by: Dustin Hoang MD - Fully Assessed Reason for Visit: Results [95] Prescriptions as of 12/16/2023 - metoprolol succinate ER (TOPROL XL) 100 mg Take 1 tablet by mouth once daily. - rosuvastatin (CRESTOR) 20 mg tablet Take 1 tablet by mouth daily at bedtime. - lisinopril (ZESTRIL) 40 mg tablet Take 1 tablet by mouth two times a day. - tolterodine ER (DETROL LA) 4 mg 24 hr capsule Take 1 capsule by mouth once daily. - omeprazole (PRILOSEC) 40 mg capsule Take 1 capsule by mouth daily before breakfast. 1/2 hr before meal. - doxazosin (CARDURA) 2 mg tablet Take 1 tablet by mouth once daily. - CREON 36,000-114,000- 180,000 unit delayed release capsule - vit C/E/Zn/coppr/lutein/z eaxan (PRESERVISION AREDS-2 ORAL) Take by mouth. - cyanocobalamin (VITAMIN B-12) 500 mcg tablet Take 1 tablet by mouth once daily. - nystatin (MYCOSTATIN) powder Apply 1 application to affected area twice daily. - diclofenac (VOLTAREN) 1 % topical gel APPLY 2 GRAMS TO AFFECTED AREA FOUR TIMES DAILY. - vit A/vit C/vit E/zinc/copper (OCUVITE PRESERVISION ORAL) Take by mouth twice daily. Problem List As Of Date 12/16/2023 Noted Resolved Family history of malignant neoplasm of gastroi*10/09/2006 Osteoarth NOS-other site [M19.90] 10/09/2006 Mixed hyperlipidemia [E78.2] 10/14/2006 Ex-smoker [Z87.891] 02/01/2009 Irritable bowel disease [K58.9] 02/01/2009 Backache [M54.9] 02/17/2009 Essential hypertension [I10] 02/05/2015 GERD (gastroesophageal reflux disease) [K21.9] 02/05/2015 Medicare annual wellness visit, subsequent [Z00*05/09/2017 Screening for colon cancer [Z12.11] 05/09/2017 Chronic pain of both knees [M25.561, M25.562, G*02/05/2018 Arthritis of both knees [M17.0] 02/05/2018 Macular degeneration [H35.30] 08/07/2018 Age-related cataract [H25.9] 08/07/2018 Overactive bladder [N32.81] 08/07/2018 Elevated hemoglobin A1c [R73.09] 08/09/[address] [Z78.9] 04/17/2020 Advance directive discussed with patient [Z71.8*12/19/2021 Chronic pain syndrome [G89.4] 12/19/2021 Medication management [Z79.899] 12/19/2021 Low serum vitamin B12 [E53.8] 12/23/2021 Hypercalcemia [E83.52] 07/25/2022 Stage 3a chronic kidney disease (HCC) [N18.31] 11/21/2022 SOB (shortness of breath) [R06.02] 12/17/2022 PAC (premature atrial contraction) [I49.1] 01/08/2023 Celiac disease [K90.0] 11/21/2023 Encounter Status:Closed by JEN[facility] TURNER [facility] WILTONNIDHI Shira ([id number]) 1940 F Date Time Provider Department 12/16/23 DUSTIN HOANG [facility] During your visit today, we recorded the following information about you: Dustin Hoang MD 12/16/2023 8:23 PM Signed Let patient know the US of her heart was ok. Charlie Bradley MA 12/17/2023 8:19 AM Signed Left message for patient to contact office. RAFIA Koch Stephanie, RN 12/17/2023 8:39 AM Signed Patient notified of results. Patient verbalizes understanding. Annie Zamora RN Allergies As of Date: 12/16/2023 Noted Allergy Reaction ADHESIVE TAPE (ROSINS) 02/15/2011 2 - Rash CODEINE 10/09/2006 8 - GI Upset HCTZ (THIAZIDES) 07/25/2022 14 - Other: See Comments Comments: Made dizzy Date Reviewed: 12/01/2023 Reviewed by: Dustin Hoang MD - Fully Assessed Reason for Visit: Results [95] Prescriptions as of 12/17/2023 - metoprolol succinate ER (TOPROL XL) 100 mg Take 1 tablet by mouth once daily. - rosuvastatin (CRESTOR) 20 mg tablet Take 1 tablet by mouth daily at bedtime. - lisinopril (ZESTRIL) 40 mg tablet Take 1 tablet by mouth two times a day. - tolterodine ER (DETROL LA) 4 mg 24 hr capsule Take 1 capsule by mouth once daily. - omeprazole (PRILOSEC) 40 mg capsule Take 1 capsule by mouth daily before breakfast. 1/2 hr before meal. - doxazosin (CARDURA) 2 mg tablet Take 1 tablet by mouth once daily. - CREON 36,000-114,000- 180,000 unit delayed release capsule - vit C/E/Zn/coppr/lutein/z eaxan (PRESERVISION AREDS-2 ORAL) Take by mouth. - cyanocobalamin (VITAMIN B-12) 500 mcg tablet Take 1 tablet by mouth once daily. - nystatin (MYCOSTATIN) powder Apply 1 application to affected area twice daily. - diclofenac (VOLTAREN) 1 % topical gel APPLY 2 GRAMS TO AFFECTED AREA FOUR TIMES DAILY. - vit A/vit C/vit E/zinc/copper (OCUVITE PRESERVISION ORAL) Take by mouth twice daily. Problem List As Of Date 12/16/2023 Noted Resolved Family history of malignant neoplasm of gastroi*10/09/2006 Osteoarth NOS-other site [M19.90] 10/09/2006 Mixed hyperlipidemia [E78.2] 10/14/2006 Ex-smoker [Z87.891] 02/01/2009 Irritable bowel disease [K58.9] 02/01/2009 Backache [M54.9] 02/17/2009 Essential hypertension [I10] 02/05/2015 GERD (gastroesophageal reflux disease) [K21.9] 02/05/2015 Medicare annual wellness visit, subsequent [Z00*05/09/2017 Screening for colon cancer [Z12.11] 05/09/2017 Chronic pain of both knees [M25.561, M25.562, G*02/05/2018 Arthritis of both knees [M17.0] 02/05/2018 Macular degeneration [H35.30] 08/07/2018 Age-related cataract [H25.9] 08/07/2018 Overactive bladder [N32.81] 08/07/2018 Elevated hemoglobin A1c [R73.09] 08/09/[address] [Z78.9] 04/17/2020 Advance directive discussed with patient [Z71.8*12/19/2021 Chronic pain syndrome [G89.4] 12/19/2021 Medication management [Z79.899] 12/19/2021 Low serum vitamin B12 [E53.8] 12/23/2021 Hypercalcemia [E83.52] 07/25/2022 Stage 3a chronic kidney disease (HCC) [N18.31] 11/21/2022 SOB (shortness of breath) [R06.02] 12/17/2022 PAC (premature atrial contraction) [I49.1] 01/08/2023 Celiac disease [K90.0] 11/21/2023 Encounter Status:Closed by ANNIE ZAMORA on 12/17/23 Normal [facility] ECHOon 12-16-2023 Echocardiography Echocardiography Report: [facility] Date of service: 12/16/2023 2:30:33 PM OPERATOR Ordering physician: DUSTIN HOANG Indication: Chest Pain Technologist: Annie Molina [facility] Interpreting physician: Sandy Carmen MD PATIENT: Name: NIDHI NÚÑEZ : 1940 Age: 83 years Gender: F History of hypertension, chronic kidney disease and dyslipidemia. Primary rhythm: sinus. Height: 155.40 cm BSA: 1.77 m Weight: 72.58 kg BMI: 30.1 kg/m Heart rate 52 bpm Blood pressure 165/49 mmHg Technically difficult exam due to body habitus. Color Doppler was utilized to interrogate the cardiac valves assessed and spectral Doppler was utilized to determine the flow velocities and pressure gradients reported in this exam. MEASUREMENTS: Value Indexed Normal Max aortic dimension 3.7 cm Ao < 3.8 Left atrial volume 57 ml (4ch A-L) 32 ml/m Katelyn <= 34 LV ID (diastole) 4.1 cm (2D) 2.34 cm/m LV ID (systole) 2.9 cm (2D) 1.64 cm/m IVS, leaflet tips 1.4 cm (2D) Posterior wall thickness 1.4 cm (2D) Left ventricular mass 215 g (2D) 122 g/m LV stroke volume 45 ml (2D 4-ch.) LV end diastolic volume 80 ml (2D 4-ch.) 45.0 ml/m 29<=EDVi<62 LV end systolic volume 35 ml (2D 4-ch.) 19.5 ml/m Ejection Fraction 57 % (2D 4-ch.) EF > 54 FINDINGS: LEFT VENTRICLE The left ventricle is normal in size. Left ventricular systolic function is normal. Grade I left ventricular diastolic dysfunction. Mitral annular lateral E/e': 10.7. Mitral annular septal E/e': 9.2. Wall Motion: All scored segments are normal. RIGHT VENTRICLE The right ventricle is normal in size. Right ventricular systolic function is normal. RV systolic tissue Doppler velocity is 15.0 cm/s. Estimated right ventricular systolic pressure is not reported due to an insufficient tricuspid regurgitation signal. Estimated right atrial pressure is 3 mmHg (although IVC not seen). LEFT ATRIUM The left atrial cavity is normal in size. RIGHT ATRIUM Unable to reliably measure RA volume due to technical limitations. Inferior Vena Cava: The inferior vena cava appears normal measuring 1.4 cm. MITRAL VALVE The mitral valve leaflets are structurally normal. There is no mitral valve regurgitation. The pressure half time is 55 msec. The peak mitral E/A ratio is 0.75. The average mitral E/e' ratio is 10.0. The mitral flow deceleration time is 188 msec. TRICUSPID VALVE The tricuspid valve leaflets are structurally normal. There is trace tricuspid valve regurgitation. AORTIC VALVE The aortic valve cusps are structurally normal. There is no aortic valve regurgitation. The peak gradient is 4 mmHg (peak velocity = 100.1 cm/s). PULMONIC VALVE The pulmonic valve cusps are structurally normal. There is no pulmonic valve regurgitation. AORTA The visualized aorta is normal in size. Measurements - Mid ascending aorta 3.7 cm. PERICARDIUM There is no pericardial effusion. There is an epicardial fat pad. CONCLUSIONS: - Technically difficult exam due to body habitus. - Exam indication: Chest Pain - The left ventricle is normal in size. Left ventricular systolic function is normal. EF = 57 5% (2D 4-ch.) Grade I left ventricular diastolic dysfunction. - The right ventricle is normal in size. Right ventricular systolic function is normal. - There are no significant valvular abnormalities. - Exam was compared with the prior CC echocardiographic exam performed on 10/24/2006. There is no significant change. * * * Final * * * [employer] Image : [id number] [id number] Normal [facility] OXIMETRY WITH AMBULATIONon 0 12-16-2023 Bradley Connor RRT 12/16/2023 2:33 PM RESPIRATORY THERAPY OXIMETRY WITH AMBULATION Oximetry with Ambulation Test for This Encounter O2 Device O2 Adapter NC O2 Flow SpO2% HR Activity Ft Walked (ft) Time (min) Avg Speed (MPH) R/A 99 53 Resting R/A 99 61 Walking, usual pace 230 3 0.87 General Information Pulse Oximetry Site Total Time Spent Walking Assistance/O2 Supply Carrier Forehead 30 Cane NAME: Bradley Connor RRT PATIENT NAME: Nidhi Núñez DATE: December 16, 2023 TIME: 2:33 PM Comment: Pt does not have a fast pace. [facility] Tomás 12-03-2023 CNPN Telephone (SAHILWS) NIDHI NÚÑEZ ([id number]) 1940 F Date Time Provider Department 12/03/23 CHARLIE BRADLEY During your visit today, we recorded the following information about you: Charlie Bradley MA 12/03/2023 7:35 PM Signed Faxed order/Demo for [facility] Nuclear stress test. Referral placed. Charlie Bradley MA Allergies As of Date: 12/03/2023 Noted Allergy Reaction ADHESIVE TAPE (ROSINS) 02/15/2011 2 - Rash CODEINE 10/09/2006 8 - GI Upset HCTZ (THIAZIDES) 07/25/2022 14 - Other: See Comments Comments: Made dizzy Date Reviewed: 12/01/2023 Reviewed by: Dustin Hoang MD - Fully Assessed Reason for Visit: Appointment [186] Cmt: Nuclear Stress Test - [facility] Prescriptions as of 12/03/2023 - metoprolol succinate ER (TOPROL XL) 100 mg Take 1 tablet by mouth once daily. - rosuvastatin (CRESTOR) 20 mg tablet Take 1 tablet by mouth daily at bedtime. - lisinopril (ZESTRIL) 40 mg tablet Take 1 tablet by mouth two times a day. - tolterodine ER (DETROL LA) 4 mg 24 hr capsule Take 1 capsule by mouth once daily. - omeprazole (PRILOSEC) 40 mg capsule Take 1 capsule by mouth daily before breakfast. 1/2 hr before meal. - doxazosin (CARDURA) 2 mg tablet Take 1 tablet by mouth once daily. - CREON 36,000-114,000- 180,000 unit delayed release capsule - vit C/E/Zn/coppr/lutein/z eaxan (PRESERVISION AREDS-2 ORAL) Take by mouth. - cyanocobalamin (VITAMIN B-12) 500 mcg tablet Take 1 tablet by mouth once daily. - nystatin (MYCOSTATIN) powder Apply 1 application to affected area twice daily. - diclofenac (VOLTAREN) 1 % topical gel APPLY 2 GRAMS TO AFFECTED AREA FOUR TIMES DAILY. - vit A/vit C/vit E/zinc/copper (OCUVITE PRESERVISION ORAL) Take by mouth twice daily. Problem List As Of Date 12/03/2023 Noted Resolved Family history of malignant neoplasm of gastroi*10/09/2006 Osteoarth NOS-other site [M19.90] 10/09/2006 Mixed hyperlipidemia [E78.2] 10/14/2006 Ex-smoker [Z87.891] 02/01/2009 Irritable bowel disease [K58.9] 02/01/2009 Backache [M54.9] 02/17/2009 Essential hypertension [I10] 02/05/2015 GERD (gastroesophageal reflux disease) [K21.9] 02/05/2015 Medicare annual wellness visit, subsequent [Z00*05/09/2017 Screening for colon cancer [Z12.11] 05/09/2017 Chronic pain of both knees [M25.561, M25.562, G*02/05/2018 Arthritis of both knees [M17.0] 02/05/2018 Macular degeneration [H35.30] 08/07/2018 Age-related cataract [H25.9] 08/07/2018 Overactive bladder [N32.81] 08/07/2018 Elevated hemoglobin A1c [R73.09] 08/09/[address] [Z78.9] 04/17/2020 Advance directive discussed with patient [Z71.8*12/19/2021 Chronic pain syndrome [G89.4] 12/19/2021 Medication management [Z79.899] 12/19/2021 Low serum vitamin B12 [E53.8] 12/23/2021 Hypercalcemia [E83.52] 07/25/2022 Stage 3a chronic kidney disease (HCC) [N18.31] 11/21/2022 SOB (shortness of breath) [R06.02] 12/17/2022 PAC (premature atrial contraction) [I49.1] 01/08/2023 Celiac disease [K90.0] 11/21/2023 Encounter Status:Closed by CHARLIE BRADLEY on 12/03/23 [facility] CNOVon 11-28-2023 CNOV Office Visit (FAMPWS ) NIDHI NÚÑEZ ([id number]) 1940 F Date Time Provider Department 11/28/23 12:20 PM DUSTIN HOANG During your visit today, we recorded the following information about you: Pulse Respiration Blood pressure Weight 49/minute 16/minute 142/80 72.6 kg Dustin Hoang MD 12/01/2023 10:03 AM Signed Chief Complaint Patient presents with: Follow Up HPI Nidhi Prettykeysha is a 83 year old female who presents here today for 1 week follow up. Patient was seen 11/21/2023 for her 6 month follow up, during that visit she had evaluated blood pressure and MONTGOMERY. Patient is here today for follow up on Blood pressure, chest pain/SOB. Patient indicated that does become winded just walking from the living room to the kitchen. She does have some chest discomfort. Granddaughter mentioned that patient did have an episode on Friday; she had a pretty bad headache/just didn't seem her herself. She checked her BP patient cannot remember what it was but granddaughter remembered it being high. Patient checked her blood pressure last night and it was 133/72 Lower back pain, patient has a stimulator - notices pain when sitting or standing to long. Head CT was Neg, breathing test and chest x-ray were ok. Patient was to schedule a NM Cardiac stress test and ECHO; CT of Brain, US of Carotid, Spirometry. CT, Xray and breathing test were normal. Patient with hx of HTN, HLP, GERD, elevate a1c, OAB, and those as below Past medical history, appointments, medications, allergies reviewed. Previous Medical History PAST MEDICAL HISTORY Diagnosis Date Acute gastritis without mention of hemorrhage 03/30/2009 Advance directive discussed with patient 12/19/2021 Discussed 12/2021 Age-related cataract 08/07/2018 Arthritis of both knees 02/05/2018 Celiac disease 11/21/2023 Chronic pain of both knees 02/05/2018 Chronic pain syndrome 12/19/2021 Seeing pain management Diverticulosis of colon (without mention of hemorrhage) Elevated hemoglobin A1c 08/09/2018 Essential hypertension 02/05/2015 Ex-smoker 02/01/2009 Started at age 16 up to 1 PPD, quit 2014 Family history of malignant neoplasm of gastrointestinal tract GERD (gastroesophageal reflux disease) 02/05/2015 EGD (negative Browning's) Hypoglycemia, unspecified Hypoglycemia Irritable bowel disease 02/01/[address] 04/17/2020 DPA: Meghan (daughter) Low serum vitamin B12 12/23/2021 Macular degeneration 08/07/2018 Left Mixed hyperlipidemia 10/14/2006 Osteoarth NOS-other site 10/09/2006 Overactive bladder 08/07/2018 PAC (premature atrial contraction) 01/08/2023 Per halosmin 12/2022 Stage 3a chronic kidney disease (HCC) 11/21/2022 Previous Surgical History PAST SURGICAL HISTORY Procedure Laterality Date *STRESS TEST PC 05/27/2017 normal 2D ECHO (EXEP) 05/27/2017 EF=70%, mild LVH, no significant valvue issues ANTERIOR COLPORRAPHY RPR CYSTOCELE W/CYSTO Cystocele repair, x2 CATARACT EXTRACTION HX Left 2011 COLONOSCOPY FLX DX W/COLLJ SPEC WHEN PFRMD 03/30/09 EGD TRANSORAL BIOPSY SINGLE/MULTIPLE 03/30/09 FECAL OCCULT BLOOD TEST 05/12/2017 negative TOTAL ABDOMINAL HYSTERECT W/WO RMVL TUBE OVARY 1970's Hysterectomy, RAY XCAPSL CTRC RMVL INSJ IO LENS PROSTH W/O ECP Right 06/2019 Cataract Extraction with PC IOL Family History FAMILY HISTORY Problem Relation Age of Onset Diabetes Mother Emphysema Mother Cancer Mother skin Colon Cancer Father liver cancer Diabetes Father Patient Allergies ALLERGIES Allergen Reactions Adhesive Tape (Jeannette* Rash Codeine GI Upset Hctz [Thiazides] Other: See Comments Made dizzy Current Medications Current Outpatient Medications on File Prior to Visit Medication Sig metoprolol succinate ER (TOPROL XL) 100 mg Take 1 tablet by mouth once daily. rosuvastatin (CRESTOR) 20 mg tablet Take 1 tablet by mouth daily at bedtime. lisinopril (ZESTRIL) 40 mg tablet Take 1 tablet by mouth two times a day. tolterodine ER (DETROL LA) 4 mg 24 hr capsule Take 1 capsule by mouth once daily. omeprazole (PRILOSEC) 40 mg capsule Take 1 capsule by mouth daily before breakfast. 1/2 hr before meal. doxazosin (CARDURA) 2 mg tablet Take 1 tablet by mouth once daily. CREON 36,000-114,000- 180,000 unit delayed release capsule vit C/E/Zn/coppr/lutein/z eaxan (PRESERVISION AREDS-2 ORAL) Take by mouth. cyanocobalamin (VITAMIN B-12) 500 mcg tablet Take 1 tablet by mouth once daily. nystatin (MYCOSTATIN) powder Apply 1 application to affected area twice daily. diclofenac (VOLTAREN) 1 % topical gel APPLY 2 GRAMS TO AFFECTED AREA FOUR TIMES DAILY. vit A/vit C/vit E/zinc/copper (OCUVITE PRESERVISION ORAL) Take by mouth twice daily. No current facility-administered medications on file prior to visit. Social History Social History Tobacco Use Smoking status: Former (more content not included)... Normal [facility] Tomás 11-25-2023 [facility] Telephone (FAMPWS) NIDHI NÚÑEZ ([id number]) 1940 F Date Time Provider Department 11/25/23 DUSTIN HOANG During your visit today, we recorded the following information about you: Dustin Hoang MD 11/25/2023 3:38 PM Signed Let patient know her breathing test was ok and the chest x-ray was ok. Brunilda Kinsey MA 11/25/2023 4:14 PM Signed Pt notified. Brunilda Kinsey MA Allergies As of Date: 11/25/2023 Noted Allergy Reaction ADHESIVE TAPE (ROSINS) 02/15/2011 2 - Rash CODEINE 10/09/2006 8 - GI Upset HCTZ (THIAZIDES) 07/25/2022 14 - Other: See Comments Comments: Made dizzy Date Reviewed: 11/24/2023 Reviewed by: Dustin Hoang MD - Fully Assessed Reason for Visit: Results [95] Prescriptions as of 11/25/2023 - metoprolol succinate ER (TOPROL XL) 100 mg Take 1 tablet by mouth once daily. - rosuvastatin (CRESTOR) 20 mg tablet Take 1 tablet by mouth daily at bedtime. - lisinopril (ZESTRIL) 40 mg tablet Take 1 tablet by mouth two times a day. - tolterodine ER (DETROL LA) 4 mg 24 hr capsule Take 1 capsule by mouth once daily. - omeprazole (PRILOSEC) 40 mg capsule Take 1 capsule by mouth daily before breakfast. 1/2 hr before meal. - doxazosin (CARDURA) 2 mg tablet Take 1 tablet by mouth once daily. - CREON 36,000-114,000- 180,000 unit delayed release capsule - vit C/E/Zn/coppr/lutein/z eaxan (PRESERVISION AREDS-2 ORAL) Take by mouth. - cyanocobalamin (VITAMIN B-12) 500 mcg tablet Take 1 tablet by mouth once daily. - nystatin (MYCOSTATIN) powder Apply 1 application to affected area twice daily. - diclofenac (VOLTAREN) 1 % topical gel APPLY 2 GRAMS TO AFFECTED AREA FOUR TIMES DAILY. - vit A/vit C/vit E/zinc/copper (OCUVITE PRESERVISION ORAL) Take by mouth twice daily. Problem List As Of Date 11/25/2023 Noted Resolved Family history of malignant neoplasm of gastroi*10/09/2006 Osteoarth NOS-other site [M19.90] 10/09/2006 Mixed hyperlipidemia [E78.2] 10/14/2006 Ex-smoker [Z87.891] 02/01/2009 Irritable bowel disease [K58.9] 02/01/2009 Backache [M54.9] 02/17/2009 Essential hypertension [I10] 02/05/2015 GERD (gastroesophageal reflux disease) [K21.9] 02/05/2015 Medicare annual wellness visit, subsequent [Z00*05/09/2017 Screening for colon cancer [Z12.11] 05/09/2017 Chronic pain of both knees [M25.561, M25.562, G*02/05/2018 Arthritis of both knees [M17.0] 02/05/2018 Macular degeneration [H35.30] 08/07/2018 Age-related cataract [H25.9] 08/07/2018 Overactive bladder [N32.81] 08/07/2018 Elevated hemoglobin A1c [R73.09] 08/09/[address] [Z78.9] 04/17/2020 Advance directive discussed with patient [Z71.8*12/19/2021 Chronic pain syndrome [G89.4] 12/19/2021 Medication management [Z79.899] 12/19/2021 Low serum vitamin B12 [E53.8] 12/23/2021 Hypercalcemia [E83.52] 07/25/2022 Stage 3a chronic kidney disease (HCC) [N18.31] 11/21/2022 SOB (shortness of breath) [R06.02] 12/17/2022 PAC (premature atrial contraction) [I49.1] 01/08/2023 Celiac disease [K90.0] 11/21/2023 Encounter Status:Closed by BRUNILDA KINSEY on 11/25/23 [facility] ([id number]) 1940 F Date Time Provider Department 11/25/23 SHAKEEL COLLINS During your visit today, we recorded the following information about you: Shakeel Collins APRN.BUNDLER 11/25/2023 8:25 AM Signed Please find out if patient is having urinary symptoms. Dayna Osorio RN 11/25/2023 9:06 AM Signed Call placed to patient and message left to call back to triage nurse. Please find out if patient is having urinary symptoms. YADY Kamara Krystle, RN 11/25/2023 9:44 AM Signed Patient returns call and reports no burning/pain, urgency, or fever. Reports back pain per her usual and frequency but not any different than her usual. Takes Detrol LA for this. Dayna Osorio RN Allergies As of Date: 11/25/2023 Noted Allergy Reaction ADHESIVE TAPE (ROSINS) 02/15/2011 2 - Rash CODEINE 10/09/2006 8 - GI Upset HCTZ (THIAZIDES) 07/25/2022 14 - Other: See Comments Comments: Made dizzy Date Reviewed: 11/24/2023 Reviewed by: Dustin Hoang MD - Fully Assessed Reason for Visit: Results [95] Prescriptions as of 11/25/2023 - metoprolol succinate ER (TOPROL XL) 100 mg Take 1 tablet by mouth once daily. - rosuvastatin (CRESTOR) 20 mg tablet Take 1 tablet by mouth daily at bedtime. - lisinopril (ZESTRIL) 40 mg tablet Take 1 tablet by mouth two times a day. - tolterodine ER (DETROL LA) 4 mg 24 hr capsule Take 1 capsule by mouth once daily. - omeprazole (PRILOSEC) 40 mg capsule Take 1 capsule by mouth daily before breakfast. 1/2 hr before meal. - doxazosin (CARDURA) 2 mg tablet Take 1 tablet by mouth once daily. - CREON 36,000-114,000- 180,000 unit delayed release capsule - vit C/E/Zn/coppr/lutein/z eaxan (PRESERVISION AREDS-2 ORAL) Take by mouth. - cyanocobalamin (VITAMIN B-12) 500 mcg tablet Take 1 tablet by mouth once daily. - nystatin (MYCOSTATIN) powder Apply 1 application to affected area twice daily. - diclofenac (VOLTAREN) 1 % topical gel APPLY 2 GRAMS TO AFFECTED AREA FOUR TIMES DAILY. - vit A/vit C/vit E/zinc/copper (OCUVITE PRESERVISION ORAL) Take by mouth twice daily. Problem List As Of Date 11/25/2023 Noted Resolved Family history of malignant neoplasm of gastroi*10/09/2006 Osteoarth NOS-other site [M19.90] 10/09/2006 Mixed hyperlipidemia [E78.2] 10/14/2006 Ex-smoker [Z87.891] 02/01/2009 Irritable bowel disease [K58.9] 02/01/2009 Backache [M54.9] 02/17/2009 Essential hypertension [I10] 02/05/2015 GERD (gastroesophageal reflux disease) [K21.9] 02/05/2015 Medicare annual wellness visit, subsequent [Z00*05/09/2017 Screening for colon cancer [Z12.11] 05/09/2017 Chronic pain of both knees [M25.561, M25.562, G*02/05/2018 Arthritis of both knees [M17.0] 02/05/2018 Macular degeneration [H35.30] 08/07/2018 Age-related cataract [H25.9] 08/07/2018 Overactive bladder [N32.81] 08/07/2018 Elevated hemoglobin A1c [R73.09] 08/09/[address] [Z78.9] 04/17/2020 Advance directive discussed with patient [Z71.8*12/19/2021 Chronic pain syndrome [G89.4] 12/19/2021 Medication management [Z79.899] 12/19/2021 Low serum vitamin B12 [E53.8] 12/23/2021 Hypercalcemia [E83.52] 07/25/2022 Stage 3a chronic kidney disease (HCC) [N18.31] 11/21/2022 SOB (shortness of breath) [R06.02] 12/17/2022 PAC (premature atrial contraction) [I49.1] 01/08/2023 Celiac disease [K90.0] 11/21/2023 Encounter Status:Closed by SHAKEEL COLLINS on 11/25/23 Normal [facility] XR Chest PA and Lateralon IMPRESSION: No developing abnormality or acute process Room Attendant: GAUTAM Transcribe Date/Time: Nov 25 2023 8:37A Dictated by : CHARLIE FUENTES MD This examination was interpreted and the report reviewed and electronically signed by: CHARLIE FUENTES MD on Nov 25 2023 8:38AM [facility] DIVISION OF RADIOLOGY * * *Final Report* * * DATE OF EXAM: Nov 21 2023 1:21PM WOX [id number] - XR CHEST 2V FRONTAL/LAT / PROCEDURE REASON: multiple diagnoses * * * * Physician Interpretation * * * * EXAMINATION: CHEST RADIOGRAPH (2 VIEW FRONTAL & LATERAL) CLINICAL HISTORY: Chest pressure MONTGOMERY (dyspnea on exertion) MQ: XC2_6 EXAM DATE/TIME: 11/21/2023 1:21 PM COMPARISON: 04/21/2023 RESULT: Lines, tubes, and devices: Neurostimulator wires overlie the midthoracic region. Lungs and pleura: No consolidation. No lung mass. No pleural effusion. No pneumothorax. Minimal stable linear atelectasis or fibrosis in the lingula. Lung espinoza are otherwise clear Cardiomediastinal silhouette: Normal cardiomediastinal silhouette. Bones and soft tissues: Unremarkable. DIVISION OF RADIOLOGY Provider, [facility] - 11/25/2023 * * *Final Report* * * DATE OF EXAM: Nov 21 2023 1:21PM WOX [id number] - XR CHEST 2V FRONTAL/LAT / PROCEDURE REASON: multiple diagnoses * * * * Physician Interpretation * * * * EXAMINATION: CHEST RADIOGRAPH (2 VIEW FRONTAL & LATERAL) CLINICAL HISTORY: Chest pressure MONTGOMERY (dyspnea on exertion) MQ: XC2_6 EXAM DATE/TIME: 11/21/2023 1:21 PM COMPARISON: 04/21/2023 RESULT: Lines, tubes, and devices: Neurostimulator wires overlie the midthoracic region. Lungs and pleura: No consolidation. No lung mass. No pleural effusion. No pneumothorax. Minimal stable linear atelectasis or fibrosis in the lingula. Lung espinoza are otherwise clear Cardiomediastinal silhouette: Normal cardiomediastinal silhouette. Bones and soft tissues: Unremarkable. IMPRESSION IMPRESSION: No developing abnormality or acute process Room Attendant: GAUTAM Transcribe Date/Time: Nov 25 2023 8:37A Dictated by : CHARLIE FUENTES MD This examination was interpreted and the report reviewed and electronically signed by: CHARLIE FUENTES MD on Nov 25 2023 8:38AM EST [facility] XR Chest PA and LateralOrder ed By: [facility] Provider on 11-25-2023 [facility] CNPNon 11-24-2023 [facility]EZ ([id number]) 1940 F Date Time Provider Department 11/24/23 MAMIE SOTELO [facility] During your visit today, we recorded the following information about you: Mamie Sotelo PA-C 11/24/2023 12:26 PM Signed Let patient know that her ct brain was normal. Abraham Donovan LPN 11/24/2023 1:27 PM Signed Left message for pt to contact office. JIM Ellington Krista, LPN 11/24/2023 2:09 PM Signed Pt's granddaughter Meghan calls along with pt for results. Notified of results. Maritza Pennington LPN Allergies As of Date: 11/24/2023 Noted Allergy Reaction ADHESIVE TAPE (ROSINS) 02/15/2011 2 - Rash CODEINE 10/09/2006 8 - GI Upset HCTZ (THIAZIDES) 07/25/2022 14 - Other: See Comments Comments: Made dizzy Date Reviewed: 11/24/2023 Reviewed by: Sommer Prieto RPFT - Fully Assessed Reason for Visit: Results [95] Prescriptions as of 11/24/2023 - metoprolol succinate ER (TOPROL XL) 100 mg Take 1 tablet by mouth once daily. - rosuvastatin (CRESTOR) 20 mg tablet Take 1 tablet by mouth daily at bedtime. - lisinopril (ZESTRIL) 40 mg tablet Take 1 tablet by mouth two times a day. - tolterodine ER (DETROL LA) 4 mg 24 hr capsule Take 1 capsule by mouth once daily. - omeprazole (PRILOSEC) 40 mg capsule Take 1 capsule by mouth daily before breakfast. 1/2 hr before meal. - doxazosin (CARDURA) 2 mg tablet Take 1 tablet by mouth once daily. - CREON 36,000-114,000- 180,000 unit delayed release capsule - vit C/E/Zn/coppr/lutein/z eaxan (PRESERVISION AREDS-2 ORAL) Take by mouth. - cyanocobalamin (VITAMIN B-12) 500 mcg tablet Take 1 tablet by mouth once daily. - nystatin (MYCOSTATIN) powder Apply 1 application to affected area twice daily. - diclofenac (VOLTAREN) 1 % topical gel APPLY 2 GRAMS TO AFFECTED AREA FOUR TIMES DAILY. - vit A/vit C/vit E/zinc/copper (OCUVITE PRESERVISION ORAL) Take by mouth twice daily. Problem List As Of Date 11/24/2023 Noted Resolved Family history of malignant neoplasm of gastroi*10/09/2006 Osteoarth NOS-other site [M19.90] 10/09/2006 Mixed hyperlipidemia [E78.2] 10/14/2006 Ex-smoker [Z87.891] 02/01/2009 Irritable bowel disease [K58.9] 02/01/2009 Backache [M54.9] 02/17/2009 Essential hypertension [I10] 02/05/2015 GERD (gastroesophageal reflux disease) [K21.9] 02/05/2015 Medicare annual wellness visit, subsequent [Z00*05/09/2017 Screening for colon cancer [Z12.11] 05/09/2017 Chronic pain of both knees [M25.561, M25.562, G*02/05/2018 Arthritis of both knees [M17.0] 02/05/2018 Macular degeneration [H35.30] 08/07/2018 Age-related cataract [H25.9] 08/07/2018 Overactive bladder [N32.81] 08/07/2018 Elevated hemoglobin A1c [R73.09] 08/09/[address] [Z78.9] 04/17/2020 Advance directive discussed with patient [Z71.8*12/19/2021 Chronic pain syndrome [G89.4] 12/19/2021 Medication management [Z79.899] 12/19/2021 Low serum vitamin B12 [E53.8] 12/23/2021 Hypercalcemia [E83.52] 07/25/2022 Stage 3a chronic kidney disease (HCC) [N18.31] 11/21/2022 SOB (shortness of breath) [R06.02] 12/17/2022 PAC (premature atrial contraction) [I49.1] 01/08/2023 Celiac disease [K90.0] 11/21/2023 Encounter Status:Closed by MARITZA PENNINGTON on 11/24/23 Normal [facility] CT BRAIN WO IVCONon 11-24-19 CT BRAIN WO IVCON * * *Final Report* * * DATE OF EXAM: Nov 24 2023 9:21AM [facility] 0504 - CT BRAIN WO IVCON / PROCEDURE REASON: multiple diagnoses * * * * Physician Interpretation * * * * EXAMINATION: CT BRAIN WO IVCON Clinical history: As provided by the ordering clinician via order question entries: Headache, new or worsening (Age >= 50y). Ataxia Headache, unspecified headache type. Stated history: Hx High blood pressure, no surg. TECHNIQUE: Serial axial images without IV were obtained from the vertex to the foramen magnum. M: CTBWO_3 CT Dose-Length Product (DLP): 654 mGy*cm CT Dose Reduction Employed: Automated exposure control(AEC) and iterative recon Comparison: 02/07/[address] without and with contrast RESULT: Post-operative change: None. Acute change: No evidence of an acute infarct or other acute parenchymal process. Hemorrhage: No evidence of acute intracranial hemorrhage. Mass Lesion / Mass Effect: There is no evidence of an intracranial mass or extraaxial fluid collection. No significant mass effect. Chronic change: Minimal atheromatous calcifications in the carotid siphons. Parenchyma: Mild generalized prominence of the subarachnoid spaces over the frontoparietal convexities and along the anterior interhemispheric fissure and mild generalized sulcal and fissural prominence otherwise, although the overall parenchymal volume is suspected to be within normal limits for patient age. Ventricles: Ventricular calibers are commensurate with the parenchymal volume and normal in configuration. Paranasal sinuses: The visualized paranasal sinuses are grossly clear. Other: Bilateral pseudophakia. The skull base and imaged soft tissues are unremarkable. Dross Puller (topogram) images: Noncontributory IMPRESSION: No acute intracranial abnormality. Room Attendant: [facility] Transcribe Date/Time: Nov 24 2023 10:55A Dictated by : DANIEL JAUREGUI MD This examination was interpreted and the report reviewed and electronically signed by: DANIEL JAUREGUI MD on Nov 24 2023 10:59AM EST [id number] N Normal [facility] CT Head WO contraston 2023 IMPRESSION: No acute intracranial abnormality. Room Attendant: [facility] Transcribe Date/Time: Nov 24 2023 10:55A Dictated by : DANIEL JAUREGUI MD This examination was interpreted and the report reviewed and electronically signed by: DANIEL JAUREGUI MD on Nov 24 2023 10:59AM EST DIVISION OF RADIOLOGY * * *Final Report* * * DATE OF EXAM: Nov 24 2023 9:21AM [facility] 0504 - CT BRAIN WO IVCON / PROCEDURE REASON: multiple diagnoses * * * * Physician Interpretation * * * * EXAMINATION: CT BRAIN WO IVCON Clinical history: As provided by the ordering clinician via order question entries: Headache, new or worsening (Age >= 50y). Ataxia Headache, unspecified headache type. Stated history: Hx High blood pressure, no surg. TECHNIQUE: Serial axial images without IV were obtained from the vertex to the foramen magnum. M: CTBWO_3 CT Dose-Length Product (DLP): 654 mGy*cm CT Dose Reduction Employed: Automated exposure control(AEC) and iterative recon Comparison: 02/07/[address] without and with contrast RESULT: Post-operative change: None. Acute change: No evidence of an acute infarct or other acute parenchymal process. Hemorrhage: No evidence of acute intracranial hemorrhage. Mass Lesion / Mass Effect: There is no evidence of an intracranial mass or extraaxial fluid collection. No significant mass effect. Chronic change: Minimal atheromatous calcifications in the carotid siphons. Parenchyma: Mild generalized prominence of the subarachnoid spaces over the frontoparietal convexities and along the anterior interhemispheric fissure and mild generalized sulcal and fissural prominence otherwise, although the overall parenchymal volume is suspected to be within normal limits for patient age. Ventricles: Ventricular calibers are commensurate with the parenchymal volume and normal in configuration. Paranasal sinuses: The visualized paranasal sinuses are grossly clear. Other: Bilateral pseudophakia. The skull base and imaged soft tissues are unremarkable. Dross Puller (topogram) images: Noncontributory DIVISION OF RADIOLOGY Provider, [facility] - 11/24/2023 * * *Final Report* * * DATE OF EXAM: Nov 24 2023 9:21AM [facility] 0504 - CT BRAIN WO IVCON / PROCEDURE REASON: multiple diagnoses * * * * Physician Interpretation * * * * EXAMINATION: CT BRAIN WO IVCON Clinical history: As provided by the ordering clinician via order question entries: Headache, new or worsening (Age >= 50y). Ataxia Headache, unspecified headache type. Stated history: Hx High blood pressure, no surg. TECHNIQUE: Serial axial images without IV were obtained from the vertex to the foramen magnum. M: CTBWO_3 CT Dose-Length Product (DLP): 654 mGy*cm CT Dose Reduction Employed: Automated exposure control(AEC) and iterative recon Comparison: 02/07/[address] without and with contrast RESULT: Post-operative change: None. Acute change: No evidence of an acute infarct or other acute parenchymal process. Hemorrhage: No evidence of acute intracranial hemorrhage. Mass Lesion / Mass Effect: There is no evidence of an intracranial mass or extraaxial fluid collection. No significant mass effect. Chronic change: Minimal atheromatous calcifications in the carotid siphons. Parenchyma: Mild generalized prominence of the subarachnoid spaces over the frontoparietal convexities and along the anterior interhemispheric fissure and mild generalized sulcal and fissural prominence otherwise, although the overall parenchymal volume is suspected to be within normal limits for patient age. Ventricles: Ventricular calibers are commensurate with the parenchymal volume and normal in configuration. Paranasal sinuses: The visualized paranasal sinuses are grossly clear. Other: Bilateral pseudophakia. The skull base and imaged soft tissues are unremarkable. Dross Puller (topogram) images: Noncontributory IMPRESSION IMPRESSION: No acute intracranial abnormality. Room Attendant: [facility] Transcribe Date/Time: Nov 24 2023 10:55A Dictated by : DANIEL JAUREGUI MD This examination was interpreted and the report reviewed and electronically signed by: DANIEL JAUREGUI MD on Nov 24 2023 10:59AM EST [facility] Radiology Study observation (narrative) [facility] CT Head WO contrastOrdered B y: [facility] Provider on 11-24-2023 [facility] Urinalysis complete panel (U )on 11-24-2023 Bacteria LM.HPF (Urine sed) [#/Area] Negative Normal Negative [facility] Comment on above: Order Comment: Speci men Type: URINE SPECIMENOrdering Facility: [facility] Address: [address] [place] [address] Performed By: #### 2 4356-8 ####[facility] LABCLIA [id number] [place] [address] [place] Bilirubin Ql (U) Negative Normal Negative [facility] Comment on above: Order Comment: Speci men Type: URINE SPECIMENOrdering Facility: [facility] Address: [address] [place] [address] Performed By: #### 2 4356-8 ####[facility] LABCLIA [id number] [place] [address] [place] Clarity (Unsp spec) Clear Normal Clear [facility] Comment on above: Order Comment: Speci men Type: URINE SPECIMENOrdering Facility: [facility] Address: [address] [place] [address] Performed By: #### 2 4356-8 ####[facility] LABCLIA [id number] [place] [address] [place] Color (U) Yellow Normal Yellow [facility] Comment on above: Order Comment: Speci men Type: URINE SPECIMENOrdering Facility: [facility] Address: [address] [place] [address] Performed By: #### 2 4356-8 ####[facility] LABCLIA [id number] [address] [place] Epithelial cells LM.HPF (Urine sed) [#/Area] Moderate Normal [facility] Comment on above: Order Comment: Speci men Type: URINE SPECIMENOrdering Facility: [facility] Address: [address] [place] [address] Performed By: #### 2 4356-8 ####[facility] LABCLIA [id number] [address] [place] Glucose Test strip (U) [Mass/Vol] Negative Normal Negative [facility] Comment on above: Order Comment: Speci men Type: URINE SPECIMENOrdering Facility: [facility] Address: [address] [place] [address] Performed By: #### 2 4356-8 ####[facility] LABCLIA [id number] [place] [address] [place] Hemoglobin Ql (U) Negative Normal Negative [facility] Comment on above: Order Comment: Speci men Type: URINE SPECIMENOrdering Facility: [facility] Address: [address] [place] [address] Performed By: #### 2 4356-8 ####[facility] LABCLIA [id number] [place] [address] [place] Hyaline casts (Urine sed) [#/Area] 0 /[LPF] Normal 0 /LPF [facility] Comment on above: Order Comment: Speci men Type: URINE SPECIMENOrdering Facility: [facility] Address: [address] [place] [address] Performed By: #### 2 4356-8 ####[facility] LABCLIA [id number] [place] [address] [place] Ketones Ql (U) Negative Normal Negative [facility] Comment on above: Order Comment: Speci men Type: URINE SPECIMENOrdering Facility: [facility] Address: [address] [place] [address] Performed By: #### 2 4356-8 ####[facility] LABCLIA [id number] [place] [address] [place] Leukocyte esterase Test strip Ql (U) 2+ Abnormal Negative [facility] Comment on above: Order Comment: Speci men Type: URINE SPECIMENOrdering Facility: [facility] Address: [address] [place] [address] Performed By: #### 2 4356-8 ####[facility] LABCLIA [id number] [place] [address] [place] Nitrite Ql (U) Negative Normal Negative [facility] Comment on above: Order Comment: Speci men Type: URINE SPECIMENOrdering Facility: [facility] Address: [address] [place] [address] Performed By: #### 2 4356-8 ####[facility] LABCLIA [id number] [place] [address] [place] pH (U) 6.0 [pH] Normal <8.5 [facility] Comment on above: Order Comment: Speci men Type: URINE SPECIMENOrdering Facility: [facility] Address: [address] [place] [address] Performed By: #### 2 4356-8 ####[facility] LABCLIA [id number] [place] [address] [place] Protein (U) [Mass/Vol] Negative Normal Negative [facility] Comment on above: Order Comment: Speci men Type: URINE SPECIMENOrdering Facility: [facility] Address: [address] [place] [address] Performed By: #### 2 4356-8 ####[facility] LABCLIA [id number] [place] [address] [place] RBC LM.HPF (Urine sed) [#/Area] 0-2 /HPF Normal 0-2 /HPF [facility] Comment on above: Order Comment: Speci men Type: URINE SPECIMENOrdering Facility: [facility] Address: [address] [place] [address] Performed By: #### 2 4356-8 ####[facility] LABCLIA [id number] [place] [address] [place] Specific gravity (U) [Rel density] 1.011 Normal 1.005-1.030 [facility] Comment on above: Order Comment: Speci men Type: URINE SPECIMENOrdering Facility: [facility] Address: [address] [place] [address] Performed By: #### 2 4356-8 ####[facility] LABCLIA [id number] [place] [address] [place] Urobilinogen Ql (U) 0.2 EU/dL Normal 0.2-1.0 EU/dL [facility] Comment on above: Order Comment: Speci men Type: URINE SPECIMENOrdering Facility: [facility] Address: [address] [place] [address] Performed By: #### 2 4356-8 ####[facility] LABCLIA [id number] [place] [address] [place] WBC LM.HPF (Urine sed) [#/Area] 11-20 /HPF Abnormal 0-5 /HPF [facility] Comment on above: Order Comment: Speci men Type: URINE SPECIMENOrdering Facility: [facility] Address: [address] [place] [address] Performed By: #### 2 4356-8 ####[facility] LABCLIA [id number] [place] [address] [place] CBC W Auto Differential pane l (Bld)on 11-21-2023 Basophils (Bld) [#/Vol] 0.03 10*3/uL Normal <0.11 [facility] Comment on above: Order Comment: Speci men Type: BLOOD SPECIMENOrdering Facility: [facility] Address: [address] [place] [address] Performed By: #### 5 7021-8 ####[facility] LABCLIA [id number] [place] [address] [place] Basophils/100 WBC (Bld) 0.4 % Normal [facility] Comment on above: Order Comment: Speci men Type: BLOOD SPECIMENOrdering Facility: [facility] Address: [address] [place] [address] Performed By: #### 5 7021-8 ####[facility] LABCLIA [id number] [place] [address] [place] Differential cell count method Nom (Bld) Auto Normal [facility] Comment on above: Order Comment: Speci men Type: BLOOD SPECIMENOrdering Facility: [facility] Address: [address] [place] [address] Performed By: #### 5 7021-8 ####[facility] LABCLIA [id number] [place] [address] [place] Eosinophils (Bld) [#/Vol] 0.32 10*3/uL Normal <0.46 [facility] Comment on above: Order Comment: Speci men Type: BLOOD SPECIMENOrdering Facility: [facility] Address: [address] [place] [address] Performed By: #### 5 7021-8 ####[facility] LABCLIA [id number] [place] [address] [place] Eosinophils/100 WBC (Bld) 4.6 % Normal [facility] Comment on above: Order Comment: Speci men Type: BLOOD SPECIMENOrdering Facility: [facility] Address: [address] [place] [address] Performed By: #### 5 7021-8 ####[facility] LABCLIA [id number] [place] [address] [place] Erythrocyte distribution width (RBC) [Ratio] 13.4 % Normal 11.5-15.0 [facility] Comment on above: Order Comment: Speci men Type: BLOOD SPECIMENOrdering Facility: [facility] Address: [address] [place] [address] Performed By: #### 5 7021-8 ####[facility] LABIA [id number] [place] [address] [place] Hematocrit (Bld) [Volume fraction] 39.0 % Normal 36.0-46.0 [facility] Comment on above: Order Comment: Speci men Type: BLOOD SPECIMENOrdering Facility: [facility] Address: [address] [place] [address] Performed By: #### 5 7021-8 ####[facility] LABIA [id number] [place] [address] [place] Hemoglobin (Bld) [Mass/Vol] 12.4 g/dL Normal 11.5-15. 5 [facility] Comment on above: Order Comment: Speci men Type: BLOOD SPECIMENOrdering Facility: [facility] Address: [address] [place] [address] Performed By: #### 5 7021-8 ####[facility] LABIA [id number] [place] [address] [place] Immature granulocytes (Bld) [#/Vol] 0.03 10*3/uL Normal <0.10 [facility] Comment on above: Order Comment: Speci men Type: BLOOD SPECIMENOrdering Facility: [facility] Address: [address] [place] [address] Performed By: #### 5 7021-8 ####[facility] LABCLIA [id number] [place] [address] [place] Immature granulocytes/100 WBC (Bld) 0.4 % Normal [facility] Comment on above: Order Comment: Speci men Type: BLOOD SPECIMENOrdering Facility: [facility] Address: [address] [place] [address] Performed By: #### 5 7021-8 ####[facility] LABCLIA [id number] [place] [address] [place] Lymphocytes (Bld) [#/Vol] 1.89 10*3/uL Normal 1.00-4.0 0 [facility] Comment on above: Order Comment: Speci men Type: BLOOD SPECIMENOrdering Facility: [facility] Address: [address] [place] [address] Performed By: #### 5 7021-8 ####[facility] LABCLIA [id number] [place] [address] [place] Lymphocytes/100 WBC (Bld) 27.3 % Normal [facility] Comment on above: Order Comment: Speci men Type: BLOOD SPECIMENOrdering Facility: [facility] Address: [address] [place] [address] Performed By: #### 5 7021-8 ####[facility] LABCLIA [id number] [place] [address] [place] MCH (RBC) [Entitic mass] 27.6 pg Normal 26.0-34.0 [facility] Comment on above: Order Comment: Speci men Type: BLOOD SPECIMENOrdering Facility: [facility] Address: [address] [place] [address] Performed By: #### 5 7021-8 ####[facility] LABCLIA [id number] [place] [address] [place] MCHC (RBC) [Mass/Vol] 31.8 g/dL Normal 30.5-36.0 [facility] Comment on above: Order Comment: Speci men Type: BLOOD SPECIMENOrdering Facility: [facility] Address: [address] [place] [address] Performed By: #### 5 7021-8 ####[facility] LABCLIA [id number] [place] [address] [place] MCV (RBC) [Entitic vol] 86.7 fL Normal 80.0-100.0 [facility] Comment on above: Order Comment: Speci men Type: BLOOD SPECIMENOrdering Facility: [facility] Address: [address] [place] [address] Performed By: #### 5 7021-8 ####[facility] LABIA [id number] [place] [address] [place] Monocytes (Bld) [#/Vol] 0.64 10*3/uL Normal <0.87 [facility] Comment on above: Order Comment: Speci men Type: BLOOD SPECIMENOrdering Facility: [facility] Address: [address] [place] [address] Performed By: #### 5 7021-8 ####[facility] LABIA [id number] [place] [address] [place] Monocytes/100 WBC (Bld) 9.2 % Normal [facility] Comment on above: Order Comment: Speci men Type: BLOOD SPECIMENOrdering Facility: [facility] Address: [address] [place] [address] Performed By: #### 5 7021-8 ####[facility] LABIA [id number] [place] [address] [place] Neutrophils (Bld) [#/Vol] 4.01 10*3/uL Normal 1.45-7.5 0 [facility] Comment on above: Order Comment: Speci men Type: BLOOD SPECIMENOrdering Facility: [facility] Address: [address] [place] [address] Performed By: #### 5 7021-8 ####[facility] LABCLIA [id number] [place] [address] [place] Neutrophils/100 WBC (Bld) 58.1 % Normal [facility] Comment on above: Order Comment: Speci men Type: BLOOD SPECIMENOrdering Facility: [facility] Address: [address] [place] [address] Performed By: #### 5 7021-8 ####[facility] LABCLIA [id number] [place] [address] [place] Nucleated RBC (Bld) [#/Vol] 10*3/uL Normal <0.01 [facility] Comment on above: Order Comment: Speci men Type: BLOOD SPECIMENOrdering Facility: [facility] Address: [address] [place] [address] Performed By: #### 5 7021-8 ####[facility] LABCLIA [id number] [place] [address] [place] Nucleated RBC/100 WBC (Bld) [Ratio] 0.0 /100 WBC Normal [facility] Comment on above: Order Comment: Speci men Type: BLOOD SPECIMENOrdering Facility: [facility] Address: [address] [place] [address] Performed By: #### 5 7021-8 ####[facility] LABCLIA [id number] [place] [address] [place] Platelet mean volume (Bld) [Entitic vol] 10.9 fL Normal 9.0-12.7 [facility] Comment on above: Order Comment: Speci men Type: BLOOD SPECIMENOrdering Facility: [facility] Address: [address] [place] [address] Performed By: #### 5 7021-8 ####[facility] LABIA [id number] [place] [address] [place] Platelets (Bld) [#/Vol] 218 10*3/uL Normal 150-400 [facility] Comment on above: Order Comment: Speci men Type: BLOOD SPECIMENOrdering Facility: [facility] Address: [address] [place] [address] Performed By: #### 5 7021-8 ####[facility] LABIA [id number] [place] [address] [place] RBC (Bld) [#/Vol] 4.50 10*6/uL Normal 3.90-5.20 [facility] Comment on above: Order Comment: Speci men Type: BLOOD SPECIMENOrdering Facility: [facility] Address: [address] [place] [address] Performed By: #### 5 7021-8 ####[facility] LABIA [id number] [place] [address] [place] [facility] [place] WBC (Bld) [#/Vol] 6.92 10*3/uL Normal 3.70-11.00 [facility] Comment on above: Order Comment: Speci men Type: BLOOD SPECIMENOrdering Facility: [facility] Address: [address] [place] [address] Performed By: #### 5 7021-8 ####[facility] LABIA [id number] [address] OF [place] CNOVon 11-21-2023 CNOV Office Visit (FAMPWS ) NIDHI NÚÑEZ ([id number]) 1940 F Date Time Provider Department 11/21/23 11:00 AM DUSTIN HOANG During your visit today, we recorded the following information about you: Pulse Respiration Blood pressure Weight 60/minute 18/minute 162/92 72.1 kg Dustin Hoang MD 11/24/2023 5:[address] Chief Complaint Patient presents with: Follow Up HPI Nidhimarilee Núñez is a 83 year old female who presents here today for 6 month follow up. PasPatient with hx of HTN, HLP, GERD, elevate a1c, OAB, and those as below Past medical history, appointments, medications, allergies reviewed. Previous Medical History PAST MEDICAL HISTORY Diagnosis Date Acute gastritis without mention of hemorrhage 03/30/2009 Advance directive discussed with patient 12/19/2021 Discussed 12/2021 Age-related cataract 08/07/2018 Arthritis of both knees 02/05/2018 Chronic pain of both knees 02/05/2018 Chronic pain syndrome 12/19/2021 Seeing pain management Diverticulosis of colon (without mention of hemorrhage) Elevated hemoglobin A1c 08/09/2018 Essential hypertension 02/05/2015 Ex-smoker 02/01/2009 Started at age 16 up to 1 PPD, quit 2014 Family history of malignant neoplasm of gastrointestinal tract GERD (gastroesophageal reflux disease) 02/05/2015 EGD (negative Browning's) Hypoglycemia, unspecified Hypoglycemia Irritable bowel disease 02/01/[address] 04/17/2020 DPA: Meghan (daughter) Low serum vitamin B12 12/23/2021 Macular degeneration 08/07/2018 Left Mixed hyperlipidemia 10/14/2006 Osteoarth NOS-other site 10/09/2006 Overactive bladder 08/07/2018 PAC (premature atrial contraction) 01/08/2023 Per halter 12/2022 Stage 3a chronic kidney disease (HCC) 11/21/2022 Previous Surgical History PAST SURGICAL HISTORY Procedure Laterality Date *STRESS TEST PC 05/27/2017 normal 2D ECHO (EXEP) 05/27/2017 EF=70%, mild LVH, no significant valvue issues ANTERIOR COLPORRAPHY RPR CYSTOCELE W/CYSTO Cystocele repair, x2 CATARACT EXTRACTION HX Left 2011 COLONOSCOPY FLX DX W/COLLJ SPEC WHEN PFRMD 10/22/09 EGD TRANSORAL BIOPSY SINGLE/MULTIPLE 03/30/09 FECAL OCCULT BLOOD TEST 05/12/2017 negative TOTAL ABDOMINAL HYSTERECT W/WO RMVL TUBE OVARY 1970's Hysterectomy, RAY XCAPSL CTRC RMVL INSJ IO LENS PROSTH W/O ECP Right 06/2019 Cataract Extraction with PC IOL Family History FAMILY HISTORY Problem Relation Age of Onset Diabetes Mother Emphysema Mother Cancer Mother skin Colon Cancer Father liver cancer Diabetes Father Patient Allergies ALLERGIES Allergen Reactions Adhesive Tape (Jeannette* Rash Codeine GI Upset Hctz [Thiazides] Other: See Comments Made dizzy Current Medications Current Outpatient Medications on File Prior to Visit Medication Sig lisinopril (ZESTRIL) 40 mg tablet Take 1 tablet by mouth two times a day. tolterodine ER (DETROL LA) 4 mg 24 hr capsule Take 1 capsule by mouth once daily. omeprazole (PRILOSEC) 40 mg capsule Take 1 capsule by mouth daily before breakfast. 1/2 hr before meal. doxazosin (CARDURA) 2 mg tablet Take 1 tablet by mouth once daily. rosuvastatin (CRESTOR) 20 mg tablet Take 1 tablet by mouth daily at bedtime. CREON 36,000-114,000- 180,000 unit delayed release capsule vit C/E/Zn/coppr/lutein/z eaxan (PRESERVISION AREDS-2 ORAL) Take by mouth. metoprolol succinate ER (TOPROL XL) 100 mg Take 1 tablet by mouth once daily. cyanocobalamin (VITAMIN B-12) 500 mcg tablet Take 1 tablet by mouth once daily. nystatin (MYCOSTATIN) powder Apply 1 application to affected area twice daily. diclofenac (VOLTAREN) 1 % topical gel APPLY 2 GRAMS TO AFFECTED AREA FOUR TIMES DAILY. vit A/vit C/vit E/zinc/copper (OCUVITE PRESERVISION ORAL) Take by mouth twice daily. No current facility-administered medications on file prior to visit. Social History Social History Tobacco Use Smoking status: Former Packs/day: 1.00 Years: 55.00 Additional pack years: 0.00 Total pack years: 55.00 Types: Cigarettes Quit date: 08/13/2014 Years since quittin.2 Smokeless tobacco: Never Vaping Use Vaping Use: Never used Substance Use Topics Alcohol use: No Drug use: No Review of Symptoms REVIEW OF SYSTEMS GENERAL: No significant weight loss, malaise or fevers NECK: Negative for lumps, goiter, pain and significant neck swelling RESPIRATORY: Negative for cough, hemoptysis, wheezing, COPD. Patient has been noting MONTGOMERY CARDIOVASCULAR: Negative for leg swelling, hypertension, CHF or palpitations. With walking will get MONTGOMERY, some chest pressure and tightness in her neck. No diaphoresis. Some nausea. GI: No vomiting, or significant diarrhea and No heartburn or reflux symptoms. ; the Detrol has helped her OAB. No dysuria or blood. ENDOCRINE: Negative for cold or heat intolerance, polyuria, polydipsia and go (more content not included)... Normal [facility] Comprehensive metabolic 2000 panelon 11-21-2023 Albumin [Mass/Vol] 4.3 g/dL Normal 3.9-4.9 [facility] Comment on above: Order Comment: Speci men Type: BLOOD SPECIMENOrdering Facility: [facility] Address: [address] [place] [address] Performed By: #### 2 132-9, 3016-3, 75499-5, 38074-8 ####[facility] [id number] [place] [address] [place] ALP [Catalytic activity/Vol] 56 U/L Normal 34-123 [facility] Comment on above: Order Comment: Speci men Type: BLOOD SPECIMENOrdering Facility: [facility] Address: [address] [place] [address] Performed By: #### 2 132-9, 3016-3, 09040-4, 65471-0 ####[facility] LABIA [id number] [place] [id number] [place] ALT [Catalytic activity/Vol] 11 U/L Normal 7-38 [facility] Comment on above: Order Comment: Speci men Type: BLOOD SPECIMENOrdering Facility: [facility] Address: [address] [place] [address] Performed By: #### 2 132-9, 3016-3, 22615-1, 78234-7 ####[facility] LABCLIA [id number] [address] [address] [place] Anion gap [Moles/Vol] 10 mmol/L Normal 8-15 [facility] Comment on above: Order Comment: Speci men Type: BLOOD SPECIMENOrdering Facility: [facility] Address: [address] [place] [address] Performed By: #### 2 132-9, 3016-3, 67928-6, 40380-3 ####[facility] LABCLIA [id number] [address] [address] [place] AST [Catalytic activity/Vol] 20 U/L Normal 13-35 [facility] Comment on above: Order Comment: Speci men Type: BLOOD SPECIMENOrdering Facility: [facility] Address: [address] [place] [address] Performed By: #### 2 132-9, 3016-3, 05788-4, 39841-7 ####[facility] LABCLIA [id number] [address] [address] [place] Bilirubin [Mass/Vol] 0.5 mg/dL Normal 0.2-1.3 [facility] Comment on above: Order Comment: Speci men Type: BLOOD SPECIMENOrdering Facility: [facility] Address: [address] [place] [address] Performed By: #### 2 132-9, 3016-3, 10193-1, 22843-4 ####[facility] LABCLIA [id number] [address] [address] [place] Calcium [Mass/Vol] 9.9 mg/dL Normal 8.5-10.2 [facility] Comment on above: Order Comment: Speci men Type: BLOOD SPECIMENOrdering Facility: [facility] Address: [address] [place] [address] Performed By: #### 2 132-9, 3016-3, 72416-6, 15579-4 ####[facility] LABCLIA [id number] [address] [address] [place] Chloride [Moles/Vol] 104 mmol/L Normal 98-107 [facility] Comment on above: Order Comment: Speci men Type: BLOOD SPECIMENOrdering Facility: [facility] Address: [address] [place] [address] Performed By: #### 2 132-9, 3016-3, 85996-1, 28536-3 ####[facility] LABCLIA [id number] [place] [address] [place] CO2 [Moles/Vol] 26 mmol/L Normal 22-30 [facility] Comment on above: Order Comment: Speci men Type: BLOOD SPECIMENOrdering Facility: [facility] Address: [address] [place] [address] Performed By: #### 2 132-9, 3016-3, 33161-8, 34611-7 ####[facility] LABCLIA [id number] [place] [address] [place] Creatinine [Mass/Vol] 1.07 mg/dL High 0.58-0.96 [facility] Comment on above: Order Comment: Speci men Type: BLOOD SPECIMENOrdering Facility: [facility] Address: [address] [place] [address] Performed By: #### 2 132-9, 3016-3, 29753-9, 91466-7 ####[facility] LABIA [id number] [place] [address] [place] Creatinine and Glomerular filtration rate.predicted panel (S/P/Bld) 51 mL/min/1.73m??? Low >=60 [facility] Comment on above: Order Comment: Speci men Type: BLOOD SPECIMENOrdering Facility: [facility] Address: [address] [place] [address] Result Comment: Gabriela mated Glomerular Filtration Rate (eGFR) is calculated using the 2021 CKD-EPI creatinine equation. This equation utilizes serum creatinine, sex, and age as parameters. The creatinine assay has traceable calibration to isotope dilution-mass spectrometry. Refer to KDIGO guidelines for clinical interpretation. In patients with unstable renal function, e.g. those with acute kidney injury, the eGFR may not accurately reflect actual GFR. Performed By: #### 2 132-9, 3016-3, 53479-1, 04759-0 ####[facility] LABCLIA [id number] [address] [address] [place] Glucose [Mass/Vol] 101 mg/dL High 74-99 [facility] Comment on above: Order Comment: Sabino boogie Type: BLOOD SPECIMENOrdering Facility: [facility] Address: [address] [place] [address] Result Comment: The [place] Diabetes Association (ADA) provides guidance for cutoff values for fasting glucose and random glucose. The ADA defines fasting as no caloric intake for at least 8 hours. Fasting plasma glucose results between 100 to 125 mg/dL indicate increased risk for diabetes (prediabetes). Fasting plasma glucose results greater than or equal to 126 mg/dL meet the criteria for diagnosis of diabetes. In the absence of unequivocal hyperglycemia, results should be confirmed by repeat testing. In a patient with classic symptoms of hyperglycemia or hyperglycemic crisis, random plasma glucose results greater than or equal to 200 mg/dL meet the criteria for diagnosis of diabetes. Reference: Standards of Medical Care in Diabetes 2016, [place] Diabetes Association. Diabetes Care. 2016.39(Suppl 1). Performed By: #### 2 132-9, 3016-3, 98304-7, 38415-2 ####[facility] LABCLIA [id number] [address] [address] [place] Potassium [Moles/Vol] 4.7 mmol/L Normal 3.7-5.1 [facility] Comment on above: Order Comment: Sabino boogie Type: BLOOD SPECIMENOrdering Facility: [facility] Address: [address] [place] [address] Performed By: #### 2 132-9, 3016-3, 84422-2, 36981-3 ####[facility] LABCLIA [id number] [address] [address] [place] Protein [Mass/Vol] 7.0 g/dL Normal 6.3-8.0 [facility] Comment on above: Order Comment: Speci men Type: BLOOD SPECIMENOrdering Facility: [facility] Address: [address] [place] [address] Performed By: #### 2 132-9, 3016-3, 12323-1, 11828-7 ####[facility] LABIA [id number] [place] [address] [place] Sodium [Moles/Vol] 140 mmol/L Normal 136-144 [facility] Comment on above: Order Comment: Speci men Type: BLOOD SPECIMENOrdering Facility: [facility] Address: [address] [place] [address] Performed By: #### 2 132-9, 3016-3, 41345-0, 82523-2 ####[facility] [id number] [place] [id number] [place] Urea nitrogen [Mass/Vol] 24 mg/dL High 7-21 [facility] Comment on above: Order Comment: Speci men Type: BLOOD SPECIMENOrdering Facility: [facility] Address: [address] [place] [address] Performed By: #### 2 132-9, 3016-3, 84145-3, 56668-0 ####[facility] LABIA [id number] [address] [address] [place] ECG COMPLETEon 11-21-2023 Atrial Rate 56 BPM [facility] Calculated P [place] -8 degrees [facility] Calculated R [place] -17 degrees [facility] Calculated T [place] 95 degrees [facility] P-R Interval 180 ms [facility] QRS Duration 90 ms [facility] QT Interval 466 ms [facility] QTC Calculation (Bazett) 449 ms [facility] Ventricular Rate 56 BPM [facility] SINUS BRADYCARDIA MINIMAL VOLTAGE CRITERIA FOR LVH, MAY BE NORMAL VARIANT ANTEROLATERAL T WAVE ABNORMALITY ABNORMAL ECG Confirmed by DUSTIN THAKKAR M.D. ([id number]) on 11/21/2023 4:11:55 PM [facility] NAME : NIDHI NÚÑEZ PID : [id number] : 1940 Gender : Female Race : ORD : [id number] Procedure Date : Nov 21 2023 12:18:04 Edit Date : Nov 21 2023 16:11:56 Diagnosis: SINUS BRADYCARDIA MINIMAL VOLTAGE CRITERIA FOR LVH, MAY BE NORMAL VARIANT ANTEROLATERAL T WAVE ABNORMALITY ABNORMAL ECG Confirmed by DUSTIN THAKKAR M.D. ([id number]) on 11/21/2023 4:11:55 PM Test Reason : R07.89 Chest pressure Location : 185 : [facility] Overread By : DUSTIN THAKKAR M.D. Edited By : DUSTIN THAKKAR M.D. Referred By : DUSTIN HOANG MD Acquired by : CHARLIE BRADLEY, [facility] ECG COMPLETE Ventricular Rate : 5 6 BPM Atrial Rate : 56 BPM P-R Interval : 180 ms QRS Duration : 90 ms Q-T Interval : 466 ms QTC Calculation(Bazett) : 449 ms Calculated P [place] : -8 degrees Calculated R [employer] [place] : -17 degrees Calculated T [place] : 95 degrees SINUS BRADYCARDIA MINIMAL VOLTAGE CRITERIA FOR LVH, MAY BE NORMAL VARIANT ANTEROLATERAL T WAVE ABNORMALITY ABNORMAL ECG Confirmed by DUSTIN THAKKAR M.D. ([id number]) on 11/21/2023 4:11:55 PM NAME : NIDHI NÚÑEZ PID : [id number] : 1940 Gender : Female Race : ORD : [id number] Procedure Date : Nov 21 2023 12:18:04 Edit Date : Nov 21 2023 16:11:56 Diagnosis: SINUS BRADYCARDIA MINIMAL VOLTAGE CRITERIA FOR LVH, MAY BE NORMAL VARIANT ANTEROLATERAL T WAVE ABNORMALITY ABNORMAL ECG Confirmed by DUSTIN THAKKAR M.D. ([id number]) on 11/21/2023 4:11:55 PM Test Reason : R07.89 Chest pressure Location : 185 : [facility] Overread By : DUSTIN THAKKAR M.D. Edited By : DUSTIN THAKKAR M.D. Referred By : DUSTIN HOANG MD Acquired by : CHARLIE BRADLEY, [facility] HbA1c (Bld)on 11-21-2023 Average glucose Estimated from glycated hemoglobin (Bld) [Mass/Vol] 111 mg/dL Normal [facility] Comment on above: Order Comment: Sabino boogie Type: BLOOD SPECIMENOrdering Facility: [facility] Address: [address] [place] [address] Result Comment: eAG: (Estimated average glucose) is a calculated value from HgbA1c and is personal service representative of the average blood glucose level in the last 2-3 month period. Performed By: #### 5 5454-3 ####[facility] LABCLIA [id number] [place] [address] [place] HbA1c (Bld) [Mass fraction] 5.5 % Normal 4.3-5.6 [facility] Comment on above: Order Comment: Sabino boogie Type: BLOOD SPECIMENOrdering Facility: [facility] Address: [address] [place] [address] Result Comment: [place] Diabetes Association guidelines indicate that patients with HgbA1c in the range 5.7-6.4% are at increased risk for development of diabetes, and intervention by lifestyle modification may be beneficial. HgbA1c greater or equal to 6.5% is considered diagnostic of diabetes. Performed By: #### 5 5454-3 ####[facility] LABCLIA [id number] [place] [address] [place] Lipid 1996 panelon Cholesterol [Mass/Vol] 144 mg/dL Normal <200 [facility] Comment on above: Order Comment: Sabino boogie Type: BLOOD SPECIMENOrdering Facility: [facility] Address: [address] [place] [address] Result Comment: <200 mg/dL, Desirable 200-239 mg/dL, Borderline high >239 mg/dL, High Performed By: #### 2 132-9, 3016-3, 32307-6, 28122-3 ####[facility] LABCLIA [id number] [place] [address] [place] Cholesterol in HDL [Mass/Vol] 50 mg/dL Normal >39 [facility] Comment on above: Order Comment: Travisjess boogie Type: BLOOD SPECIMENOrdering Facility: [facility] Address: [address] [place] [address] Result Comment: 40-5 9 mg/dL, Acceptable >59 mg/dL, High: Negative risk factor for coronary heart disease <40 mg/dL, Low: Positive risk factor for coronary heart disease Performed By: #### 2 132-9, 3016-3, 34537-2, 48050-5 ####[facility] LABCLIA [id number] [place] [address] [place] Cholesterol in LDL [Mass/Vol] 58 mg/dL Normal <100 [facility] Comment on above: Order Comment: Sabino keagan Type: BLOOD SPECIMENOrdering Facility: [facility] Address: [address] [place] [address] Result Comment: <100 mg/dL, Optimal 100-129 mg/dL, Near optimal/above optimal 130-159 mg/dL, Borderline high 160-189 mg/dL, High >189 mg/dL, Very high Secondary prevention optimal LDL Cholesterol levels are recommended to be < 70 mg/dL Performed By: #### 2 132-9, 3016-3, 07894-8, 51725-9 ####[facility] LABCLIA [id number] [place] [address] [place] Cholesterol in LDL/Cholesterol in HDL [Mass ratio] 1.16 {ratio} Normal <2.54 [facility] Comment on above: Order Comment: Sabino boogie Type: BLOOD SPECIMENOrdering Facility: [facility] Address: [address] [place] [address] Result Comment: Refe radhace: 1. National Cholesterol Education Program ATP III Guideline At-A-Glance Quick Desk Reference: National Heart, Lung, and Blood [place]. National Institutes of Health. 2001: NIH Publication No. 01-3305. 2. An International Atherosclerosis Society position paper: global recommendations for the management of dyslipidemia: executive summary, Atherosclerosis. 2014: 232(2):410-413. Performed By: #### 2 132-9, 3016-3, 06676-3, 31389-4 ####[facility] LABCLIA [id number] [address] [address] [place] Cholesterol in VLDL [Mass/Vol] 36 mg/dL High <30 [facility] Comment on above: Order Comment: Speci men Type: BLOOD SPECIMENOrdering Facility: [facility] Address: [address] [place] [address] Performed By: #### 2 132-9, 3016-3, 09323-4, 03843-6 ####[facility] LABCLIA [id number] [place] [address] [place] Cholesterol non HDL [Mass/Vol] 94 mg/dL Normal <130 [facility] Comment on above: Order Comment: Speci men Type: BLOOD SPECIMENOrdering Facility: [facility] Address: [address] [place] [address] Result Comment: <130 mg/dL, Optimal 130-159 mg/dL, Near optimal/above optimal 160-189 mg/dL, Borderline high 190-219 mg/dL, High >219 mg/dL, Very high Secondary prevention optimal non HDL Cholesterol levels are recommended to be <100 mg/dL Performed By: #### 2 132-9, 3016-3, 65483-8, 07485-7 ####[facility] LABCLIA [id number] [place] [address] [place] Cholesterol.total/Cholester ol in HDL [Mass ratio] 2.88 {ratio} Normal <5.10 [facility] Comment on above: Order Comment: Speci men Type: BLOOD SPECIMENOrdering Facility: [facility] Address: [address] [place] [address] Performed By: #### 2 132-9, 3016-3, 32641-5, 32899-2 ####[facility] LABCLIA [id number] [address] [address] [place] FASTING TIME 15 hrs Normal [facility] Comment on above: Order Comment: Speci men Type: BLOOD SPECIMENOrdering Facility: [facility] Address: [address] [place] [address] Performed By: #### 2 132-9, 3016-3, 66534-4, 42740-4 ####[facility] LABCLIA [id number] [place] [address] [place] Triglyceride [Mass/Vol] 181 mg/dL High <150 [facility] Comment on above: Order Comment: Speci men Type: BLOOD SPECIMENOrdering Facility: [facility] Address: [address] [place] [address] Result Comment: <150 mg/dL, Normal 150-199 mg/dL, Borderline high 200-499 mg/dL, High >499 mg/dL, Very high Performed By: #### 2 132-9, 3016-3, 99939-6, 09767-2 ####[facility] LABCLIA [id number] [place] [address] [place] THYROID STIMULATING HORMONEo n 11-21-2023 TSH Qn 2.370 m[IU]/L [facility] TSH Qnon 11-21-2023 Interpretation and review of laboratory results Normal [facility] TSH SerPl-aCncon 11-21-2023 TSH Qn 2.370 m[IU]/L Normal 0.270-4.200 [facility] Comment on above: Order Comment: Speci men Type: BLOOD SPECIMENOrdering Facility: [facility] Address: [address] [place] [address] Performed By: #### 2 132-9, 3016-3, 31785-2, 57984-9 ####[facility] LABCLIA [id number] [place] [address] [place] Vit B12 SerPl-mCncon 024 Cobalamin (Vitamin B12) [Mass/Vol] 481 pg/mL Normal 232-1245 [facility] Comment on above: Order Comment: Speci men Type: BLOOD SPECIMENOrdering Facility: [facility] Address: [address] [place] [id number] Performed By: #### 2 132-9, 3016-3, 08607-6, 58176-0 ####[facility] LABCLIA [id number] [id number] [id number] [place] XR CHEST 2V FRONTAL/LATon XR CHEST 2V FRONTAL/LAT * * *Final Repor t* * * DATE OF EXAM: Nov 21 2023 1:21PM WOX [id number] - XR CHEST 2V FRONTAL/LAT / PROCEDURE REASON: multiple diagnoses * * * * Physician Interpretation * * * * EXAMINATION: CHEST RADIOGRAPH (2 VIEW FRONTAL and LATERAL) CLINICAL HISTORY: Chest pressure MONTGOMERY (dyspnea on exertion) MQ: XC2_6 EXAM DATE/TIME: 11/21/2023 1:21 PM COMPARISON: 04/21/2023 RESULT: Lines, tubes, and devices: Neurostimulator wires overlie the midthoracic region. Lungs and pleura: No consolidation. No lung mass. No pleural effusion. No pneumothorax. Minimal stable linear atelectasis or fibrosis in the lingula. Lung espinoza are otherwise clear Cardiomediastinal silhouette: Normal cardiomediastinal silhouette. Bones and soft tissues: Unremarkable. IMPRESSION: No developing abnormality or acute process Room Attendant: GAUTAM Transcribe Date/Time: Nov 25 2023 8:37A Dictated by : CHARLIE FUENTES MD This examination was interpreted and the report reviewed and electronically signed by: CHARLIE FUENTES MD on Nov 25 2023 8:38AM EST [id number] Normal [facility] XR Chest PA and Lateralon Radiology Study observation (narrative) [facility] Gastroenterology Visit Repor ton 10-01-2023 Gastroenterology Visit Report [facility] Gastroenterology [address] [place] [address] OFFICE VISIT Date of Service: 10/01/23 MR#: [id number] Acct: [id number] Name: NIDHI NÚÑEZ Rep #: [id number] : 1940 Provider: Kevon Crum DO Age/Sex: 83/F Location: BMS.BGI Status: Signed Intake Vital Signs 01/29/23 15:17 Height 5 ft 2 in Weight: 165 lb 2.02 oz BMI 30.2 BP 153/75 H Respiration 12 Pulse 52 L Temp 97.8 F Temp Source Temporal Pulse Oximetry (%) 96 Intake Visit Reasons: 6 MO FU Allergies adhesive tape Allergy (Intermediate, Verified 09/04/22 14:25) Other codeine Allergy (Verified 09/04/22 14:25) Hives PFSH Medical History Acute gastritis without mention of hemorrhage Age related cataract Arthritis of both knees Backache Diverticulosis Elevated hemoglobin A1c Epigastric pain GERD (gastroesophageal reflux disease) Hypoglycemia IBS (irritable bowel syndrome) Low vitamin B12 level Macular degeneration, left eye Numbness and tingling of right leg Overactive bladder Upper abdominal pain Surgical History S/P anterior colporrhaphy S/P total abdominal hysterectomy Social History Smoking Status: Former smoker quit date: 08/13/14 pack-years: 1 alcohol intake: never HPI HPI Details: NIDHI NÚÑEZ, is a 83 F who presents to the office today for PCP OV 07.25.22 with upper abdominal pain, nausea, bloating and loose stool. Increase Prilosec to 40MG QD ? Biochemical CBC, CMP, cholesterol, amylase, lipase without pertinent abnormality ? Triglycerides H163, A1c H5.9 ? CT abd/pel 08.15.22 hepatic fatty infiltration; mild dilation of CBD; normal gallbladder; small sliding hiatal hernia; vasculature WNL. *BGI established 11.15.22 with PO intake she has been having bloating and upper abdominal discomfort with upset stomach. BM typically occur daily with normal stool and watery stools but she is not able to describe this further. Has not attempted with symptoms; omeprazole QD has been the most helpful. Liquids consist of mostly coffee, orange juice and occasional pop. Most consistent meal is dinner, last night she had a pork chop seasoned with shake and bake, scalloped potatoes and broccoli. ? Biochemical ESR, CMP, ferritin, LFT, LDH, CRP, TSH without pertinent abnormality ? cANCA H1:160, celiac + ? Stool Calprotectin, fat (total increased), C.Difficile, blood, EP, lactoferrin, O/P, giardia WNL.? Elastase L74 Contact 12.04.22 with results and will start Creon and gluten free diet. ? CT abd/pel 12.30.22 fibrotic changes to lung bases; CBD measures 1.2cm; urinary bladder prolapse. Contact 01.08.[address] results; Creon has been helpful but continues with loose stools. Increase Creon to two caps with meals. OV 03.31.23 abdominal cramping and loose stools continue to be an issue with diet when she eats gluten. Continues with Creon, two capsules and this is helpful. OV 4.24.24 Pt states she is having BM daily. Irregular consistency. Pt continues taking Creon and Omeprazole. Denies blood in stool but notices blood sometimes when she wipes if she is constipated. ROS Const Constitutional: Positive for fatigue, headache(s) and weakness; No fever(s) or weight change ENT ENT: Positive for headache(s) and difficulty swallowing Cardio Cardiology: Positive for leg pain with exertion Gastro GI: Positive for bloating, constipation, difficulty swallowing and nausea/dyspepsia; No abdominal pain, belching, change in bowel habits, change in stool character, coffee ground emesis, cramping, diarrhea, heartburn, feeling full early, excessive flatus, incontinent of stools, Vomiting blood/hematemesis, Blood in stool, loose stools, Black,tarry stools, pain with swallowing, vomiting or other Musc Musculoskeletal: Positive for abnormal gait, joint pain, back pain, muscle weakness, numbness, stiffness, tingling, Arthritis, sciatica, restless legs, leg pain at night and leg pain with exertion Skin Skin: Positive for dry skin; No yellowing of the eye or itchy eyes Neuro Neurology: Positive for abnormal gait, dizziness, weakness, headache(s), numbness, tingling, restless legs and tremor(s) Psych Psychiatric: No anxiety and No depression Endo Endocrine: Positive for fatigue; No weight change Aller/Imm Allergy/Immunologic: No itchy eyes (more content not included)... Normal [facility] HSV+VZV DNA SHIRAZ+probe Ql (Un sp spec)on 04-22-2023 HSV 1 DNA SHIRAZ+probe Ql (Unsp spec) Not detected Not Detected [facility] HSV 2 DNA SHIRAZ+probe Ql (Unsp spec) Not detected Not Detected [facility] VZV DNA SHIRAZ+probe Ql (Unsp spec) Not detected Not Detected [facility] XR CHEST 2V FRONTAL/LATon [facility] XR Chest PA and Lateralon IMPRESSION: Small patchy density in the mid right lung which may represent atelectasis. Infection is not excluded. Room Attendant: GAUTAM Transcribe Date/Time: Apr 21 2023 1:47P Dictated by : DANIEL CHAVEZ MD This examination was interpreted and the report reviewed and electronically signed by: DANIEL CHAVEZ MD on Apr 21 2023 1:59PM [facility] DIVISION OF RADIOLOGY * * *Final Report* * * DATE OF EXAM: Apr 21 2023 1:40PM WOX 5291 - XR CHEST 2V FRONTAL/LAT / PROCEDURE REASON: Acute cough * * * * Physician Interpretation * * * * EXAMINATION: CHEST RADIOGRAPH (2 VIEW FRONTAL & LATERAL) CLINICAL HISTORY: Acute cough MQ: XC2_6 EXAM DATE/TIME: 04/21/2023 1:40 PM COMPARISON: No relevant prior studies available. RESULT: Lines, tubes, and devices: None. Lungs and pleura: No consolidation. No lung mass. No pleural effusion. No pneumothorax. A small patchy linear density is noted in the peripheral aspect of the mid right lung. Cardiomediastinal silhouette: The cardiac silhouette appears within normal limits. The thoracic aorta is tortuous in appearance. Moderate arterial calcifications involve the aortic arch. Bones and soft tissues: Degenerative changes are noted in the thoracic spine. DIVISION OF RADIOLOGY Provider, [facility] - 04/21/2023 * * *Final Report* * * DATE OF EXAM: Apr 21 2023 1:40PM WOX 5291 - XR CHEST 2V FRONTAL/LAT / PROCEDURE REASON: Acute cough * * * * Physician Interpretation * * * * EXAMINATION: CHEST RADIOGRAPH (2 VIEW FRONTAL & LATERAL) CLINICAL HISTORY: Acute cough MQ: XC2_6 EXAM DATE/TIME: 04/21/2023 1:40 PM COMPARISON: No relevant prior studies available. RESULT: Lines, tubes, and devices: None. Lungs and pleura: No consolidation. No lung mass. No pleural effusion. No pneumothorax. A small patchy linear density is noted in the peripheral aspect of the mid right lung. Cardiomediastinal silhouette: The cardiac silhouette appears within normal limits. The thoracic aorta is tortuous in appearance. Moderate arterial calcifications involve the aortic arch. Bones and soft tissues: Degenerative changes are noted in the thoracic spine. IMPRESSION IMPRESSION: Small patchy density in the mid right lung which may represent atelectasis. Infection is not excluded. Room Attendant: GAUTAM Transcribe Date/Time: Apr 21 2023 1:47P Dictated by : DANIEL CHAVEZ MD This examination was interpreted and the report reviewed and electronically signed by: DANIEL CHAVEZ MD on Apr 21 2023 1:59PM EST [facility] Radiology Study observation (narrative) [facility] XR Chest PA and LateralOrder ed By: [facility]cf Provider on 04-21-2023 [facility] Absolute lymphocyte countOrd ered By: Flynn Castillo on 01-29-2023 Lymphocytes Auto (Unsp spec) [#/Vol] 1.74 10*3/uL 0.83-4.51 [facility] Basophil percentageOrdered B y: Flynn Castillo on 01-29-2023 Basophils/100 WBC (Bld) 0.3 % 0-1 [facility] Chloride [Moles/Vol] 102 mmol/L 98-107 [facility] Eosinophils/100 WBC (Bld) 2.4 % 0-5 [facility] Glucose [Mass/Vol] 113 mg/dL 74-106 [facility] Comment on above: Fasting Glucose resu lt from 100 to 125 mg/dL suggests IMPAIRED HOMEOSTASIS per A.D.A. criteria. Neutrophils (Bld) [#/Vol] 6.3 10*3/uL 2.0-7.7 [facility] Neutrophils/100 WBC (Bld) 68.3 % 47-70 [facility] Potassium [Moles/Vol] 4.6 mmol/L 3.5-5.1 [facility] Sodium [Moles/Vol] 137 mmol/L 136-145 [facility] WBC (Bld) [#/Vol] 9.2 10*3/uL 4.4-11.0 [facility] Blood erythrocytes count (nu mber/volume)Ordered By: Flynn Castillo on 01-29-2023 RBC (Bld) [#/Vol] 4.80 10*6/uL 4.2-5.4 [facility] Blood hemoglobin measurement (mass/volume)Ordered By: Flynn Castillo on 01-29-2023 Hemoglobin (Bld) [Mass/Vol] 13.9 g/dL 12.0-15. 0 [facility] Blood lymphocytes/100 leukoc ytesOrdered By: Flynn Castillo on 01-29-2023 Lymphocytes/100 WBC (Bld) 18.9 % 19-41 [facility] Blood monocytes/100 leukocyt esOrdered By: Flynn Castillo on 01-29-2023 Monocytes/100 WBC (Bld) 8.6 % 0-10 [facility] Blood platelet mean volumeOr dered By: Flynn Castillo on 01-29-2023 Platelet mean volume (Bld) [Entitic vol] 10.3 fL 6.2-12.0 [facility] Determination of erythrocyte mean corpuscular volume (MCV)Ordered By: Flynn Castillo on 01-29-2023 MCV (RBC) [Entitic vol] 88.1 fL 81-99 [facility] Hematocrit Auto (Bld) [Volum e fraction]Ordered By: Flynn Castillo on 01-29-2023 Hematocrit (Bld) [Volume fraction] 42.3 % 37-47 [facility] Laboratory - Chemistry and C hemistry - challengeOrdered By: Flynn Castillo on 01-29-2023 CO2 [Moles/Vol] 29.0 mmol/L 21.0-32.0 [facility] Natriuretic peptide B (Bld) [Mass/Vol] 49.3 pg/mL 0-100 [facility] Urea nitrogen/Creatinine [Mass ratio] 31.8 mg/mg 10-20 [facility] Laboratory - Hematology and Cell countsOrdered By: Flynn Castillo on 01-29-2023 Erythrocyte distribution width (RBC) [Entitic vol] 44.1 fL 35.1-43.9 [facility] Erythrocyte distribution width (RBC) [Ratio] 13.6 % 11.6-14.6 [facility] Immature granulocytes/100 WBC (Bld) 1.500 % 0.0-0.9 [facility] Comment on above: IG% - Immature Granu locytes (promyelocytes, myelocytes and metamyelocytes) > 1% indicates that a LEFT SHIFT is Present. MCH (RBC) [Entitic mass] 29.0 pg 27.0-32.0 [facility] Nucleated RBC/100 WBC (Bld) [Ratio] 0 % 0-5 [facility] MCHC Auto (RBC) [Mass/Vol]Or dered By: Flynn Castillo on 01-29-2023 MCHC (RBC) [Mass/Vol] 32.9 g/dL 32-36 [facility] No Panel InformationOrdered By: Flynn Castillo on 08-23-2023 Troponin I High Sensitivity 6 pg/mL 3.0-54.0 [facility] Comment on above: Please Note: New Paty t Units and Gender Specific Reference Ranges. For more information see Policy Stat Procedure [place] High Sensitivity Troponin (TNIH) and attachments. Estimated Creatinine Clearance Calc 30.65 ml/min [facility] Estimated GFR (MDRD) Amer 61 mL/min >60 [facility] Comment on above: GFR Calc Estimated GFR (MDRD) Non-Af Amer 50 mL/min >60 [facility] Comment on above: Non- GFR Calc Platelets bldOrdered By: Parth Castillo on 01-29-2023 Platelets (Bld) [#/Vol] 234 10*3/uL 150-450 [facility] Serum or plasma calcium carl urement (mass/volume)Ordered By: Flynn Castillo on 01-29-2023 Calcium [Mass/Vol] 9.4 mg/dL 8.5-10.1 [facility] Serum or plasma creatinine m easurement (mass/volume)Ordered By: Flynn Castillo on 01-29-2023 Creatinine [Mass/Vol] 1.10 mg/dL 0.55-1.02 [facility] Comment on above: The validity of the calculated GFR & GFRAA in patients over 70 years has not been determined. Clinical correlation is essential. Serum or plasma urea nitroge n measurement (mass/volume)Ordered By: Flynn Castillo on 01-29-2023 Urea nitrogen [Mass/Vol] 35 mg/dL 7-18 [facility] Thin prep Papanicolaou smear with manual screeningOrdered By: Flynn Castillo on 01-29-2023 Thin prep Papanicolaou smear with manual screening 6 5-15 [facility] Basic metabolic 2000 panelon 11-21-2022 Anion gap [Moles/Vol] 14 mmol/L 9 - 18 mmol/L [facility] Calcium [Mass/Vol] 10.0 mg/dL 8.5 - 10. 2 mg/dL [facility] Chloride [Moles/Vol] 104 mmol/L 97 - 10 5 mmol/L [facility] CO2 [Moles/Vol] 22 mmol/L 22 - 30 mmol/L [facility] Creatinine [Mass/Vol] 1.07 mg/dL High 0.58 - 0.96 mg/dL [facility] Estimated Glomerular Filtration Rate 52 mL/min/1.73m Low >=60 mL/min/1.73 m [facility] Glucose [Mass/Vol] 84 mg/dL 74 - 99 mg/dL [facility] Potassium [Moles/Vol] 4.9 mmol/L 3.7 - 5.1 mmol/L [facility] Sodium [Moles/Vol] 140 mmol/L 136 - 144 mmol/L [facility] Urea nitrogen [Mass/Vol] 20 mg/dL 7 - 21 mg/dL [facility] T4 FREE/FREE THYROXon 2022 Free T4 [Mass/Vol] 1.4 ng/dL 0.9 - 1.7 ng/dL [facility] TSH BLDon 11-21-2022 TSH Qn 2.850 m[IU]/L 0.270 - 4.200 mIU/L [facility] CBC W Auto Differential pane l (Bld)on 11-20-2022 Basophils (Bld) [#/Vol] <0.11 k/uL [facility] Basophils/100 WBC (Bld) 0.3 % [facility] Differential cell count method Nom (Bld) Auto [facility] Eosinophils (Bld) [#/Vol] 0.27 10*3/uL <0.46 k/ uL [facility] Eosinophils/100 WBC (Bld) 4.5 % [facility] Erythrocyte distribution width (RBC) [Ratio] 13.5 % 11.5 - 15.0 % [facility] Hematocrit (Bld) [Volume fraction] 40.7 % 36.0 - 46.0 % [facility] Hemoglobin (Bld) [Mass/Vol] 13.4 g/dL 11.5 - 15.5 g/dL [facility] Immature granulocytes (Bld) [#/Vol] 0.03 10*3/uL <0.10 k/uL [facility] Immature granulocytes/100 WBC (Bld) 0.5 % [facility] Lymphocytes (Bld) [#/Vol] 1.53 10*3/uL 1. 00 - 4.00 k/uL [facility] Lymphocytes/100 WBC (Bld) 25.8 % [facility] MCH (RBC) [Entitic mass] 28.6 pg 26. 0 - 34.0 pg [facility] MCHC (RBC) [Mass/Vol] 32.9 g/dL 30.5 - 36.0 g/dL [facility] MCV (RBC) [Entitic vol] 87.0 fL 80.0 - 100.0 fL [facility] Monocytes (Bld) [#/Vol] 0.59 10*3/uL <0.87 k/uL [facility] Monocytes/100 WBC (Bld) 9.9 % [facility] Neutrophils (Bld) [#/Vol] 3.50 10*3/uL 1. 45 - 7.50 k/uL [facility] Neutrophils/100 WBC (Bld) 59.0 % [facility] Nucleated RBC (Bld) [#/Vol] <0.01 k/ uL [facility] Nucleated RBC/100 WBC (Bld) [Ratio] 0.0 /100 WBC [facility] Platelet mean volume (Bld) [Entitic vol] 10.4 fL 9.0 - 12.7 fL [facility] Platelets (Bld) [#/Vol] 205 10*3/uL 150 - 400 k/uL [facility] RBC (Bld) [#/Vol] 4.68 10*6/uL 3.90 - 5.2 0 m/uL [facility] WBC (Bld) [#/Vol] 5.94 10*3/uL 3.70 - 11.00 k/uL [facility] Clostridium difficile detect ion by polymerase chain reactionOrdered By: Kevon Crum on 11-18-2022 C. difficile DNA SHIRAZ+probe Ql (Unsp spec) [facility] No Panel InformationOrdered By: Kevon Crum on 11-18-2022 Giardia Antigen (JONATHAN) [facility] Stool Calprotectin 83 ug/g 0-120 [facility] Comment on above: Concentration Interp retation Follow-Up< 5 - 50 ug/g Normal None>50 -120 ug/g Borderline Re-evaluate in 4-6 weeks >120 ug/g Abnormal Repeat as clinically indicatedPerformed at: [facility] [id number] Director: Andres De Luna PhD, Phone: [phone] at: [facility] [id number] Director: Suki Winslow MD, Phone: [phone] Stool Neutral Fats Normal . [facility] Comment on above: Normal (<60 Droplets /HPF) Stool Pancreatic Elastase 74 >200 [facility] Comment on above: Result Units: ug Alie st./gResults verified by repeat testing Severe Pancreatic Insufficiency: <100 Moderate Pancreatic Insufficiency: 100 - 200 Normal: >200Performed at: [address] [id number] Director: Suki Winslow MD, Phone: [phone] Ova and parasitesOrdered By: Kevon Crum on 11-18-2022 Ova and parasites identified LM Nom (Unsp spec) [facility] Qualitative fecal fat or lip idsOrdered By: Kevon Crum on 11-18-2022 Fat Ql (Stl) Increased . [facility] Comment on above: Normal (<100 Droplet s/HPF) Stool enteric pathogen panel by probe and target amplification methodOrdered By: Kevon Crum on 11-18-2022 Gastrointestinal pathogens panel SHIRAZ+probe (Stl) [facility] Stool gastrointestinal hemog lobin detection by immunologic methodOrdered By: Kevon Crum on 11-18-2022 Lower GI hemoglobin IA Ql (Stl) [facility] Stool lactoferrin detection by immunoassayOrdered By: Kevon Crum on 11-18-2022 Lactoferrin IA Ql (Stl) [facility] Atypical perinuclear antineu trophil cytoplasmic antibodies measurementOrdered By: Kevon Crum on 11-15-2022 Neutrophil cytoplasmic Ab.perinuclear.atypical IF (S) [Titer] <1:20 titer Neg:<1:20 [facility] Comment on above: The atypical pANCA p attern has been observed in asignificant percentage of patients with ulcerative colitis,primary sclerosing cholangitis and autoimmune hepatitis.Performed at: [address] [id number] Director: Andres De Luna PhD, Phone: [phone] Basophil percentageOrdered B y: Kevon Crum on 11-15-2022 Bilirubin [Mass/Vol] 0.60 mg/dL 0.20-1.00 [facility] Comment on above: For patients on eltr ombopag therapy, use of Dimension [place] TBIL is not recommended. Chloride [Moles/Vol] 107 mmol/L 98-107 [facility] Glucose [Mass/Vol] 85 mg/dL 74-106 [facility] LDH [Catalytic activity/Vol] 182 U/L 84-246 [facility] Potassium [Moles/Vol] 4.4 mmol/L 3.5-5.1 [facility] Protein [Mass/Vol] 7.4 g/dL 6.4-8.2 [facility] Sodium [Moles/Vol] 139 mmol/L 136-145 [facility] Erythrocyte sedimentation ra teOrdered By: Kevon Crum on 11-15-2022 ESR (Bld) [Velocity] 16 mm/h 0-30 [facility] Laboratory - Chemistry and C hemistry - challengeOrdered By: Kevon Crum on 11-15-2022 ALP [Catalytic activity/Vol] 47 U/L 45-117 [facility] ALT [Catalytic activity/Vol] 24 U/L 13-56 [facility] CO2 [Moles/Vol] 27.0 mmol/L 21.0-32.0 [facility] Globulin (S) [Mass/Vol] 3.7 g/dL 2.2-4.2 [facility] Urea nitrogen/Creatinine [Mass ratio] 21.0 mg/mg 10-20 [facility] No Panel InformationOrdered By: Kevon Crum on 11-15-2022 Endomysial IgA Antibody Negative Negative [facility] Estimated GFR (MDRD) Amer 64 mL/min >60 [facility] Comment on above: GFR Calc Estimated GFR (MDRD) Non-Af Amer 53 mL/min >60 [facility] Comment on above: Non- GFR Calc Thyroid Stimulating Hormone (TSH) 1.82 uIU/mL 0.358-3.74 [facility] Serum IgA measurement (units /volume)Ordered By: Kevon Crum on 11-15-2022 IgA Qn (S) 295 mg/dL 64-422 [facility] Serum classic neutrophil cyt oplasmic antibody assay (units/volume)Ordered By: Kevon Crum on 11-15-2022 Neutrophil cytoplasmic Ab.classic Qn (S) 1:160 titer Neg:<1:20 [facility] Serum or plasma C reactive p rotein measurement (mass/volume)Ordered By: Kevon Crum on 11-15-2022 CRP [Mass/Vol] mg/L 0.0-3.0 [facility] Comment on above: C-Reactive Protein ( CRP) provides useful information for thediagnosis, therapy and monitoring of inflammatory processesand associated diseases. For the evaluation of Relative Riskfor Cardiovascular Disease, a High Sensitivity CRP (HSCRP)should be ordered. Serum or plasma albumin carl urement (mass/volume)Ordered By: Kevon Crum on 11-15-2022 Albumin [Mass/Vol] 3.7 g/dL 3.2-5.0 [facility] Serum or plasma albumin/glob ulin mass ratioOrdered By: Kevon Crum on 11-15-2022 Albumin/Globulin [Mass ratio] 1.0 {ratio} 0.9-2.4 [facility] Serum or plasma calcium carl urement (mass/volume)Ordered By: Kevon Crum on 11-15-2022 Calcium [Mass/Vol] 9.5 mg/dL 8.5-10.1 [facility] Serum or plasma creatinine m easurement (mass/volume)Ordered By: Kevon Crum on 11-15-2022 Creatinine [Mass/Vol] 1.05 mg/dL 0.55-1.02 [facility] Comment on above: The validity of the calculated GFR & GFRAA in patients over 70 years has not been determined. Clinical correlation is essential. Serum or plasma ferritin herbert surement (mass/volume)Ordered By: Kevon Crum on 11-15-2022 Ferritin [Mass/Vol] 105 ng/mL 8- [facility] Serum or plasma urea nitroge n measurement (mass/volume)Ordered By: Kevon Crum on 11-15-2022 Urea nitrogen [Mass/Vol] 22 mg/dL 7-18 [facility] Serum perinuclear neutrophil cytoplasmic antibody titer by immunofluorescenceOrdered By: Kevon Crum on 11-15-2022 Neutrophil cytoplasmic Ab.perinuclear IF (S) [Titer] <1:20 titer Neg:<1:20 [facility] Comment on above: The presence of posi tive fluorescence exhibiting P-ANCA orC-ANCA patterns alone is not specific for the diagnosis ofWegener's Granulomatosis (WG) or microscopic polyangiitis.Decisions about treatment should not be based solely onANCA IFA results. The [employer] ANCA Group Consensusrecommends follow up testing of positive sera with both NE-3 and MPO-ANCA enzyme immunoassays. As many as 5% serumsamples are positive only by EIA. Ref. AM J Clin [id number];111:507-513. Serum tissue transglutaminas e IgA antibody assay (units/volume)Ordered By: Kevon Crum on 11-15-2022 tTG IgA Qn (S) 4 U/mL 0-3 [facility] Comment on above: Negative 0 - 3 Weak Positive 4 - 10 Positive >10 Tissue Transglutaminase (tTG) has been identified as the endomysial antigen. Studies have demonstr- ated that endomysial IgA antibodies have over 99% specificity for gluten sensitive enteropathy. Thin prep Papanicolaou smear with manual screeningOrdered By: Kevon Crum on 11-15-2022 Thin prep Papanicolaou smear with manual screening 19 U/L 15-37 [facility] Thin prep Papanicolaou smear with manual screening 5 5-[address] [facility] [address] ABDOMEN W IVCONon 023 [facility] No Panel Informationon 08-15 Troponin I High Sensitivity 7 pg/mL 3.0-54.0 [facility] Comment on above: Please Note: New Paty t Units and Gender Specific Reference Ranges. For more information see Policy Stat Procedure [place] High Sensitivity Troponin (TNIH) and attachments. Tomás 08-01-2022 [facility] Telephone ([facility]) NIDHI NÚÑEZ ([id number]) 1940 F Date Time Provider Department 08/01/22 VIKTOR, DUSTIN A [facility] During your visit today, we recorded the following information about you: Dustin Hoang MD 08/01/2022 11:04 AM Signed Let patient know the US of her abdomen shows dilation of the ducts in her liver and dilation of the ductus in the right kidney. I want to get a CT to further evaluate these findings. Orders placed. Alma Delia Irvin RN 08/01/2022 1:31 PM Signed Called and left a voicemail for the Patient to call back and ask for a nurse to receive the providers message. YADY Glover RN 08/01/2022 1:42 PM Signed Patient returned call and given provider's message below with verbalized understanding. Patient states she will have her granddaughter call back to schedule the CT scan. Allergies As of Date: 08/01/2022 Noted Allergy Reaction ADHESIVE TAPE (ROSINS) 02/15/2011 2 - Rash CODEINE 10/09/2006 8 - GI Upset HCTZ (THIAZIDES) 07/25/2022 14 - Other: See Comments Comments: Made dizzy Date Reviewed: 07/25/2022 Reviewed by: Dustin Hoang MD - Fully Assessed Reason for Visit: Results [95] Primary Visit Diagnosis:Hydronephro sis, unspecified hydronephrosis type [N13.30] Other Visit Diagnosis:Dilation of biliary tract [K83.8] Order(s):CT ABDOMEN W IVCON [[id number]] Order #: [id number] FUTURE iv contrast (will be provided with radiology test)CT ABD W -Inject, intravenously, once for 1 dose.No IV access, insert saline lock prior to the beginning of sedation, infusion, injection of imaging exam. Discontinue saline lock post exam. If Pt. has a central line or IVAD, may access for administration according to line specific nursing protocol. Once exam is complete flush line and de-access according to line specific nursing protocol in the CT contrast administration guidelines link.Disp: 1 EachRfl: 0 enteric contrast (will be provided with radiology test)For CT ABD W IVCON order Administer, As Directed One Time Only, via Oral, Rectal, both Oral and Rectal, Enteric Tube, Stoma or Indwelling Catheter, Enteric Contrast as designated per enteric contrast guidelinesDisp: 1 EachRfl: 0 CREATININE BLD [SQCRET] Order #: [id number] FUTURE Prescriptions as of 08/01/2022 - iv contrast (will be provided with radiology test) CT ABD W -Inject, intravenously, once for 1 dose.No IV access, insert saline lock prior to the beginning of sedation, infusion, injection of imaging exam. Discontinue saline lock post exam. If Pt. has a central line or IVAD, may access for administration according to line specific nursing protocol. Once exam is complete flush line and de-access according to line specific nursing protocol in the CT contrast administration guidelines link. - enteric contrast (will be provided with radiology test) For CT ABD W IVCON order Administer, As Directed One Time Only, via Oral, Rectal, both Oral and Rectal, Enteric Tube, Stoma or Indwelling Catheter, Enteric Contrast as designated per enteric contrast guidelines - doxazosin (CARDURA) 1 mg tablet Take 1 tablet by mouth once daily. - lisinopril (ZESTRIL, PRINIVIL) 40 mg tablet Take 1 tablet by mouth twice daily. - omeprazole (PRILOSEC) 40 mg capsule Take 1 capsule by mouth daily before breakfast. 1/2 hr before meal. - rosuvastatin (CRESTOR) 20 mg tablet Take 1 tablet by mouth daily at bedtime. - metoprolol succinate ER (TOPROL XL) 100 mg Take 1 tablet by mouth once daily. - tolterodine ER (DETROL LA) 4 mg 24 hr capsule Take 1 capsule by mouth once daily. - cyanocobalamin (VITAMIN B-12) 500 mcg tablet Take 1 tablet by mouth once daily. - loratadine (CLARITIN) 10 mg tablet Take 1 tablet by mouth once daily. - nystatin (MYCOSTATIN) powder Apply 1 application to affected area twice daily. - meloxicam (MOBIC) 15 mg tablet TAKE 0.5-1 TABLETS BY MOUTH ONCE DAILY NEEDED. - diclofenac (VOLTAREN) 1 % topical gel APPLY 2 GRAMS TO AFFECTED AREA FOUR TIMES DAILY. - vit A/vit C/vit E/zinc/copper (OCUVITE PRESERVISION ORAL) Take by mouth twice daily. Problem List As Of Date 08/01/2022 Noted Resolved Family history of malignant neoplasm of gastroi*10/09/2006 Osteoarth NOS-other site [M19.90] 10/09/2006 Mixed hyperlipidemia [E78.2] 10/14/2006 Ex-smoker [Z87.891] 02/01/2009 Irritable bowel disease [K58.9] 02/01/2009 Backache [M54.9] 02/17/2009 Essential hypertension [I10] 02/05/2015 GERD (gastroesophageal reflux disease) [K21.9] 02/05/2015 Medicare annual wellness visit, subsequent [Z00*05/09/2017 Screening for colon cancer [Z12.11] 05/09/2017 Chronic pain of both knees [M25.561, M25.562, G*02/05/2018 Arthritis of both knees [M17.0] 02/05/2018 Macular degeneration [H35.30] 08/07/2018 Age-related cataract [H25.9] 08/07/2018 Overactive bladder [N32.81] 08/07/2018 Elevated hemoglobin A1c [R73 (more content not included)... Normal [facility] US ABD RT UPPER QUADRANTon 0 07-30-2022 [facility] Comprehensive metabolic 2000 panelon 12-20-2021 Albumin [Mass/Vol] 4.4 g/dL 3.9 - 4.9 g/dL [facility] ALP [Catalytic activity/Vol] 55 U/L 34 - 123 U/L [facility] ALT [Catalytic activity/Vol] 12 U/L 7 - 38 U/L [facility] Anion gap [Moles/Vol] 15 mmol/L 9 - 18 mmol/L [facility] AST [Catalytic activity/Vol] 20 U/L 13 - 35 U/L [facility] Bilirubin [Mass/Vol] 0.5 mg/dL 0.2 - 1 .3 mg/dL [facility] Calcium [Mass/Vol] 10.4 mg/dL High 8.5 - 10. 2 mg/dL [facility] Chloride [Moles/Vol] 101 mmol/L 97 - 10 5 mmol/L [facility] CO2 [Moles/Vol] 25 mmol/L 22 - 30 mmol/L [facility] Creatinine [Mass/Vol] 0.91 mg/dL 0.58 - 0.96 mg/dL [facility] Estimated Glomerular Filtration Rate 63 mL/min/1.73m >=60 mL/min/1.73 m [facility] Glucose [Mass/Vol] 90 mg/dL 74 - 99 mg/dL [facility] Potassium [Moles/Vol] 4.6 mmol/L 3.7 - 5.1 mmol/L [facility] Protein [Mass/Vol] 7.5 g/dL 6.3 - 8.0 g/dL [facility] Sodium [Moles/Vol] 141 mmol/L 136 - 144 mmol/L [facility] Urea nitrogen [Mass/Vol] 21 mg/dL 7 - 21 mg/dL [facility] LIPID PANEL, NONFASTINGon Cholesterol [Mass/Vol] 159 mg/dL <200 mg/dL Cl [facility] HDL Cholesterol, Nonfasting 47 mg/dL >39 mg/d L [facility] LDL Cholesterol, Nonfasting 75 mg/dL <100 mg/ dL [facility] LDL/HDL Ratio, Nonfasting 1.60 mg/dL <2.54 mg/d L [facility] Non HDL Cholesterol, Nonfasting 112 mg/dL <130 mg/dL [facility] Total Chol/HDL Ratio, Nonfasting 3.38 mg/dL <5.10 mg/dL [facility] Triglycerides, Nonfasting 183 mg/dL High <150 mg/dL [facility] VLDL Cholesterol, Nonfasting 37 mg/dL High <30 mg/dL [facility] MAGNESIUM BLDon 12-20-2021 Magnesium [Mass/Vol] 2.3 mg/dL 1.7 - 2 .3 mg/dL [facility] VITAMIN B12 BLOODon 12-21-19 Cobalamin (Vitamin B12) [Mass/Vol] 300 pg/mL 232-1,245 pg/mL [facility] CBC W Auto Differential pane l (Bld)on 12-19-2021 Abs Immature Gran 0.04 k/uL <0.10 k/uL [facility] Basophils (Bld) [#/Vol] 0.05 10*3/uL <0.11 k/uL [facility] Basophils/100 WBC (Bld) 0.5 % [facility] Differential cell count method Nom (Bld) Auto [facility] Eosinophils (Bld) [#/Vol] 0.31 10*3/uL <0.46 k/ uL [facility] Eosinophils/100 WBC (Bld) 3.1 % [facility] Erythrocyte distribution width (RBC) [Ratio] 13.4 % 11.5 - 15.0 % [facility] Hematocrit (Bld) [Volume fraction] 44.8 % 36.0 - 46.0 % [facility] Hemoglobin (Bld) [Mass/Vol] 14.2 g/dL 11.5 - 15.5 g/dL [facility] Immature Gran % 0.4 % [facility] Lymphocytes (Bld) [#/Vol] 2.01 10*3/uL 1. 00 - 4.00 k/uL [facility] Lymphocytes/100 WBC (Bld) 20.0 % [facility] MCH (RBC) [Entitic mass] 28.5 pg 26. 0 - 34.0 pg [facility] MCHC (RBC) [Mass/Vol] 31.7 g/dL 30.5 - 36.0 g/dL [facility] MCV (RBC) [Entitic vol] 90.0 fL 80.0 - 100.0 fL [facility] Monocytes (Bld) [#/Vol] 0.88 10*3/uL High <0.87 k/uL [facility] Monocytes/100 WBC (Bld) 8.8 % [facility] Neutrophils (Bld) [#/Vol] 6.74 10*3/uL 1. 45 - 7.50 k/uL [facility] Neutrophils/100 WBC (Bld) 67.2 % [facility] Nucleated RBC (Bld) [#/Vol] 10*3/uL <0.01 k/ uL [facility] Nucleated RBC/100 WBC (Bld) [Ratio] 0.0 /100 WBC [facility] Platelet mean volume (Bld) [Entitic vol] 10.6 fL 9.0 - 12.7 fL [facility] Platelets (Bld) [#/Vol] 242 10*3/uL 150 - 400 k/uL [facility] RBC (Bld) [#/Vol] 4.98 10*6/uL 3.90 - 5.2 0 m/uL [facility] WBC (Bld) [#/Vol] 10.03 10*3/uL 3.70 - 11.00 k/uL [facility] Vital Signs Date Time Vital Sign Value Performing Clinician Facility 07-02-2024 13:46-0500 Body mass index (BMI) [Ratio] 30.24 kg/m2 Shakeel Collins APRN.BUNDLER Work Phone: [facility] 07-02-2024 13:46-0500 Body weight 73.03 kg Shakeel Collins CIG[employer]TER.BUNDLER Work Phone: [facility] 07-02-2024 13:46-0500 Diastolic blood pressure 70 mm[Hg] Shakeel Collins C[employer]TER.BUNDLER Work Phone: [facility] 07-02-2024 13:46-0500 Heart rate 55 /min Shakeel Collins [employer].BUNDLER Work Phone: [facility] 07-02-2024 13:46-0500 Systolic blood pressure 127 mm[Hg] Shakeel Collins CIG[employer]TER.BUNDLER Work Phone: [facility] 11-28-2023 13:06-0400 Diastolic blood pressure 80 mm[Hg] Dustin Hoang MD Work Phone: [facility] 11-28-2023 13:06-0400 Systolic blood pressure 142 mm[Hg] Dustin Hoang MD Work Phone: [facility] 11-28-2023 12:36-0400 Body mass index (BMI) [Ratio] 30.05 kg/m2 Dustin Hoang MD Work Phone: [facility] 11-28-2023 12:36-0400 Body weight 72.58 kg Dustin Hoang MD Work Phone: [facility] 11-28-2023 12:36-0400 Heart rate 49 /min Dustin Hoang MD Work Phone: [facility] 11-28-2023 12:36-0400 Respiratory rate 16 /min Dustin Hoang MD Work Phone: [facility] 11-28-2023 12:36-0400 SaO2% (BldA) [Mass fraction] 94 % Dustin Hoang MD Work Phone: [facility] 11-24-2023 13:09-0400 Body height 155.4 cm Pulm Wstr Work Phone: [facility] 11-24-2023 13:09-0400 Body mass index (BMI) [Ratio] 30.05 kg/m2 Pulm Wstr Work Phone: [facility] 11-24-2023 13:09-0400 Body weight 72.58 kg Pulm Wstr Work Phone: [facility] 11-24-2023 13:09-0400 Heart rate 59 /min Pulm Wstr Work Phone: [facility] 11-24-2023 13:09-0400 Respiratory rate 14 /min Pulm Wstr Work Phone: [facility] 11-24-2023 13:09-0400 SaO2% (BldA) [Mass fraction] 99 % Pulm Wstr Work Phone: [facility] 11-21-2023 12:41-0400 Diastolic blood pressure 92 mm[Hg] Dustin Hoang MD Work Phone: [facility] 11-21-2023 12:41-0400 Systolic blood pressure 162 mm[Hg] Dustin Hoang MD Work Phone: [facility] 11-21-2023 11:01-0400 Body mass index (BMI) [Ratio] 28.17 kg/m2 Dustin Hoang MD Work Phone: [facility] 11-21-2023 11:01-0400 Body weight 72.12 kg Dustin Hoang MD Work Phone: [facility] 11-21-2023 11:01-0400 Heart rate 60 /min Dustin Hoang MD Work Phone: [facility] 11-21-2023 11:01-0400 Respiratory rate 18 /min Dustin Hoang MD Work Phone: [facility] 04-21-2023 13:13-0500 Body temperature 98.4 [degF] Monica Bogner PA-C Work Phone: [facility] 04-21-2023 13:13-0500 Body weight 71.85 kg Monica Bogner PA-C Work Phone: [facility] 04-21-2023 13:13-0500 Diastolic blood pressure 78 mm[Hg] Monica Bogner PA-C Work Phone: [facility] 04-21-2023 13:13-0500 Heart rate 92 /min Monica Bogner PA-C Work Phone: [facility] 04-21-2023 13:13-0500 Respiratory rate 19 /min Monica Bogner PA-C Work Phone: [facility] 04-21-2023 13:13-0500 SaO2% (BldA) [Mass fraction] 95 % Monica Bogner PA-C Work Phone: [facility] 04-21-2023 13:13-0500 Systolic blood pressure 124 mm[Hg] Monica Bogner PA-C Work Phone: [facility] 01-29-2023 18:32-0400 Diastolic blood pressure 70 mm[Hg] Dr. Dustin Joyner Work Phone: [facility] 01-29-2023 18:32-0400 Heart rate 52 /min Dr. Dustin Joyner Work Phone: [facility] 01-29-2023 18:32-0400 Respiratory rate 18 /min Dr. Dustin Joyner Work Phone: [facility] 01-29-2023 18:32-0400 Systolic blood pressure 138 mm[Hg] Dr. Dustin Joyner Work Phone: [facility] 01-29-2023 15:17-0400 Body height 157.[address] Dustin Joyner Work Phone: [facility] 01-29-2023 15:17-0400 Body mass index (BMI) [Ratio] 30.2 kg/m2 Dr. Dustin Joyner Work Phone: [facility] 01-29-2023 15:17-0400 Body temperature 97.8 [degF] Dr. Dustin Joyner Work Phone: [facility] 01-29-2023 15:17-0400 Body weight 74.[address] Dustin Joyner Work Phone: [facility] 01-29-2023 15:17-0400 SaO2% (BldA) [Mass fraction] 96 % Dr. Dustin Joyner Work Phone: [facility] 11-20-2022 09:58-0400 Body weight 75.75 kg Dustin Hoang MD Work Phone: [facility] 11-20-2022 09:58-0400 Diastolic blood pressure 86 mm[Hg] Dustin Hoang MD Work Phone: [facility] 11-20-2022 09:58-0400 Heart rate 56 /min Dustin Hoang MD Work Phone: [facility] 11-20-2022 09:58-0400 Respiratory rate 16 /min Dustin Hoang MD Work Phone: [facility] 11-20-2022 09:58-0400 SaO2% (BldA) [Mass fraction] 97 % Dustin Hoang MD Work Phone: [facility] 11-20-2022 09:58-0400 Systolic blood pressure 128 mm[Hg] Dustin Hoang MD Work Phone: [facility] 08-15-2022 10:34-0500 Body weight 75.75 kg Shakeel Collins APRN.BUNDLER Work Phone: [facility] 08-15-2022 10:34-0500 Diastolic blood pressure 96 mm[Hg] Shakeel Collins C[employer]TER.BUNDLER Work Phone: [facility] 08-15-2022 10:34-0500 Heart rate 64 /min Shakeel Collins [employer].BUNDLER Work Phone: [facility] 08-15-2022 10:34-0500 Respiratory rate 16 /min Shakeel Collins C[employer].BUNDLER Work Phone: [facility] 08-15-2022 10:34-0500 Systolic blood pressure 158 mm[Hg] Shakeel Collins CIG[employer]TER.BUNDLER Work Phone: [facility] 07-25-2022 11:49-0500 Diastolic blood pressure 92 mm[Hg] Dustin Hoang MD Work Phone: [facility] 07-25-2022 11:49-0500 Systolic blood pressure 160 mm[Hg] Dustin Hoang MD Work Phone: [facility] 07-25-2022 11:31-0500 Body weight 76.66 kg Dustin Hoang MD Work Phone: [facility] 07-25-2022 11:31-0500 Heart rate 54 /min Dustin Hoang MD Work Phone: [facility] 07-25-2022 11:31-0500 Respiratory rate 16 /min Dustin Hoang MD Work Phone: [facility] 02-26-2022 11:53-0400 Diastolic blood pressure 76 mm[Hg] Mi Nurse Work Phone: [facility] 02-26-2022 11:53-0400 Heart rate 57 /min Mi Nurse Work Phone: [facility] 02-26-2022 11:53-0400 Systolic blood pressure 127 mm[Hg] Mi Nurse Work Phone: [facility] 02-13-2022 11:17-0400 Diastolic blood pressure 85 mm[Hg] Mi Nurse Work Phone: [facility] 02-13-2022 11:17-0400 Heart rate 50 /min Mi Nurse Work Phone: [facility] 02-13-2022 11:17-0400 Systolic blood pressure 197 mm[Hg] Mi Nurse Work Phone: [facility] 01-09-2022 09:49-0400 Diastolic blood pressure 86 mm[Hg] Mi Nurse Work Phone: [facility] 01-09-2022 09:49-0400 Heart rate 54 /min Mi Nurse Work Phone: [facility] 01-09-2022 09:49-0400 Systolic blood pressure 159 mm[Hg] Mi Nurse Work Phone: [facility] 12-19-2021 11:33-0400 Diastolic blood pressure 77 mm[Hg] Dustin Hoang MD Work Phone: [facility] 12-19-2021 11:33-0400 Systolic blood pressure 152 mm[Hg] Dustin Hoang MD Work Phone: [facility] 12-19-2021 10:10-0400 Body weight 74.39 kg Dustin Hoang MD Work Phone: [facility] 12-19-2021 10:10-0400 Heart rate 60 /min Dustin Hoang MD Work Phone: [facility] 12-19-2021 10:10-0400 Respiratory rate 16 /min Dustin Hoang MD Work Phone: [facility] 10-30-2021 13:39-0400 Body temperature 96.91 [degF] Flores Athy PA-C Work Phone: [facility] 10-30-2021 13:39-0400 Body weight 74.84 kg Flores Athy PA-C Work Phone: [facility] 10-30-2021 13:39-0400 Diastolic blood pressure 80 mm[Hg] Flores Athy PA-C Work Phone: [facility] 10-30-2021 13:39-0400 Heart rate 62 /min Flores Athy PA-C Work Phone: [facility] 10-30-2021 13:39-0400 Respiratory rate 16 /min Flores Athy PA-C Work Phone: [facility] 10-30-2021 13:39-0400 SaO2% (BldA) [Mass fraction] 96 % Flores Athy PA-C Work Phone: [facility] 10-30-2021 13:39-0400 Systolic blood pressure 132 mm[Hg] Flores Athy PA-C Work Phone: [facility] Encounters Encounter Date Encounter Type Care Provider Facility Start: 11-11-2024 End: 11-11-2024 Refolivia CHRISTOPHER-C Work Phone: [facility] [place] Comment on above: Refill Request Start: 09-27-2024 End: 09-27-2024 Refill Mamie Sotelo PA-C Work Phone: [facility] [place] Comment on above: Refill Request Start: 08-13-2024 End: 08-13-2024 Refill Mamie Sotelo PA-C Work Phone: [facility] [place] Comment on above: Refill Request Start: 07-13-2024 End: 07-14-2024 Refill Dustin Hoang MD Work Phone: [facility] [place] Comment on above: Refill Request Start: 07-12-2024 End: 07-12-2024 Telephone encounter Shakeel Collins APRN.CNP Work Phone: [facility] [place] Comment on above: Results Start: 07-09-2024 End: 07-09-2024 [facility] Start: 07-05-2024 End: 07-08-2024 Telephone encounter Shakeel Collins APRN.LISA Work Phone: [facility] [place] Comment on above: Results Start: 07-02-2024 End: 07-02-2024 Patient encounter procedure Shakeel Collins APRN.BUNDLER Work Phone: [facility] [place] Comment on above: Advance directive di scussed with patient (Primary Dx); Screening for depression; Encounter for screening examination for other mental health and behavioral disorders; Medicare annual wellness visit, subsequent; Seasonal allergies; Essential hypertension; Mixed hyperlipidemia; Overactive bladder; Elevated hemoglobin A1c; Stage 3a chronic kidney disease (HCC); Low serum vitamin B12; Gastroesophageal reflux disease without esophagitis; PAC (premature atrial contraction) Start: 07-02-2024 End: 07-02-2024 ambulatory [facility] Facility:[facility] Start: 06-30-2024 End: 06-30-2024 Refill Dustin Hoang MD Work Phone: [facility] [place] Comment on above: Refill Request Start: 05-19-2024 End: 05-19-2024 Refill Dustin Hoang MD Work Phone: [facility] [place] Comment on above: Refill Request Start: 04-21-2024 End: 04-21-2024 Refill Dustin Hoang MD Work Phone: [facility] Comment on above: Refill Request Start: 03-25-2024 End: 03-25-2024 ambulatory Kevon Crum Facility:[facility] Start: 03-23-2024 End: 03-23-2024 Chart abstracting Charlie Bradley [facility] [place] Comment on above: ED Follow-up Start: 03-21-2024 End: 03-21-2024 [facility] Start: 03-03-2024 End: 03-03-2024 Refill Mamie CHRISTOPHER-Tom Work Phone: [facility] Comment on above: Refill Request Start: 03-02-2024 End: 03-02-2024 Chart abstracting Charlie Bradley MA [facility] [place] [facility] Comment on above: Outside Testing ([facility] - xray) Start: 03-01-2024 End: 03-01-2024 ambulatory Dustin Giles Facility:[facility] Start: 02-18-2024 End: 02-18-2024 Refill Mamie CHRISTOPHER-C Work Phone: [facility] Comment on above: Refill Request Start: 02-17-2024 End: 02-18-2024 Refill Mamie CHRITSOPHER-C Work Phone: [facility] [place] Comment on above: Refill Request Start: 01-29-2024 End: 01-29-2024 ambulatory [facility] Work Phone: [facility] Comment on above: Stress Test Instruct ions for 02/02/24 Start: 01-29-2024 End: 01-29-2024 E-mail encounter from caregiver Nurse Card Admin [facility] Work Phone: Cardiology Start: 01-09-2024 Telephone encounter Charlie Bradley MA [facility] [place] Comment on above: Results Start: 01-08-2024 ambulatory John Alba Facility:[facility] Start: 01-06-2024 ambulatory John Alba Facility:[facility] Start: 01-06-2024 End: 01-06-2024 ambulatory Dustin Hoang Facility:[facility] Start: 12-31-2023 End: 12-31-2023 ambulatory DUSTIN HOANG Facility:[facility] Start: 12-16-2023 End: 12-16-2023 ambulatory [facility] Work Phone: [facility] Comment on above: Spirometry Start: 12-16-2023 End: 12-16-2023 Patient encounter procedure [facility] Work Phone: [facility] Start: 12-16-2023 Telephone encounter Dustin Hoang MD Work Phone: [facility] [place] Comment on above: Results Start: 12-03-2023 Telephone encounter Charlie Bradley MA [facility] [place] Comment on above: Appointment (Nuclear Stress Test - [facility] ) Start: 11-28-2023 End: 11-28-2023 Patient encounter procedure [facility] Hoang MD [facility] Comment on above: Essential hypertensi on (Primary Dx); [place] (dyspnea on exertion); Chest pain, unspecified type; Dizziness Start: 11-28-2023 End: 11-28-2023 ambulatory DUSTIN HOANG Facility:[facility] Start: 11-25-2023 Telephone encounter Shakeel bates APRN.CNP Work Phone: [facility] [place] Comment on above: Results Start: 11-24-2023 Telephone encounter Mamie house PA-C Work Phone: [facility] [place] Comment on above: Results Start: 11-24-2023 End: 11-24-2023 Patient encounter procedure [facility] Work Phone: [facility] [facility] Start: 11-24-2023 End: 11-24-2023 ambulatory Pulm Lab [facility] Work Phone: [facility] Comment on above: Spirometry Start: 11-24-2023 End: 11-24-2023 Subsequent hospital visit by physician Ct [facility] (I-Stat) Work Phone: Cat Scan Comment on above: Ataxia [R27.0] Start: 11-21-2023 End: 11-21-2023 Subsequent hospital visit by physician Xr [facility] Work Phone: Radiology Comment on above: Chest pressure [R07. 89] Start: 11-21-2023 End: 11-21-2023 ambulatory DUSTIN HOANG Facility:[facility] Start: 11-21-2023 End: 11-21-2023 Patient encounter procedure Dustin Hoang MD Work Phone: [facility] Comment on above: Essential hypertensi on (Primary Dx); Mixed hyperlipidemia; Elevated hemoglobin A1c; Stage 3a chronic kidney disease (HCC); Gastroesophageal reflux disease without esophagitis; Low serum vitamin B12; PAC (premature atrial contraction); Celiac disease; Overactive bladder; Chest pressure; MONTGOMERY (dyspnea on exertion); Decreased stamina; Ex-smoker; Ataxia; Headache, unspecified headache type; Dizziness; Encounter for screening for cardiovascular disorders; Medication management Start: 11-18-2023 Refill Shakeel arana APRN.BUNDLER Work Phone: [facility] Comment on above: Refill Request Start: 10-01-2023 End: 10-01-2023 ambulatory Kevon Crum Facility:[facility] Start: 09-29-2023 Refill Shakeel arana APRN.BUNDLER Work Phone: [facility] Comment on above: Refill Request Start: 08-13-2023 Refill Mamie Correa on PA-C Work Phone: [facility] Comment on above: Refill Request Start: 07-29-2023 Refill Dustin murillo MD Work Phone: [facility] Comment on above: Refill Request Start: 04-21-2023 End: 04-21-2023 Subsequent hospital visit by physician Xr [facility] Work Phone: Radiology Comment on above: Acute cough [R05.1] Start: 04-21-2023 End: 04-21-2023 Office outpatient visit 25 minutes Monica Tan PA-C Work Phone: [facility] Comment on above: Rash (Primary Dx); Acute cough Start: 04-07-2023 Telephone encounter Dustin Hoang MD Work Phone: [facility] Comment on above: Medication Problem Start: 04-03-2023 Telephone encounter Dustin Hoang MD Work Phone: [facility] Comment on above: Medication Problem Refill Request Start: 03-20-2023 Refill Mamie Correa on PA-C Work Phone: [facility] Comment on above: Refill Request Start: 01-30-2023 Telephone encounter Charlie Bradley MA [facility] Comment on above: Results Start: 01-29-2023 End: 01-29-2023 Emergency department patient visit Dr. Dustin Joyner Work Phone: [facility] Work Phone: Start: 01-29-2023 Non-patient / Non-visit Dr. Dioni Joyner Work Phone: [facility] Start: 01-29-2023 Telephone encounter Dustin Hoang MD Work Phone: [facility] Comment on above: Patient Update Start: 01-29-[address] [facility] Work [facility]: Start: 01-16-2023 Refill Shakeel arana APRN.CNP Work Phone: [facility] Comment on above: Refill Request Start: 01-08-2023 Telephone encounter Dustin Hoang MD Work Phone: [facility] Comment on above: Results Start: 12-30-2022 End: 12-30-[address] Dustin Joyner Work Phone: [facility] Work Phone: Start: 12-30-2022 End: 12-30-[address] Dustin Joyner Work Phone: [facility]-Cat Scan, [facility] Work Phone: Start: 12-17-2022 [facility] Start: 11-29-2022 Chart abstracting Dustin fontenot MD Work Phone: [facility] [place] Comment on above: Results (Labs /) Start: 11-21-2022 Chart abstracting Dustin fontenot MD Work Phone: [facility] Comment on above: Outside Irjf-Kby-KAV Ordered Start: 11-21-2022 Telephone encounter Dustin Hoang MD Work Phone: [facility] Comment on above: Results Start: 11-20-2022 End: 11-20-2022 Patient encounter procedure Dustin Hoang MD Work Phone: [facility] Comment on above: Essential hypertensi on (Primary Dx); Mixed hyperlipidemia; Gastroesophageal reflux disease without esophagitis; Elevated hemoglobin A1c; Low serum vitamin B12; Angina pectoris (HCC); SOB (shortness of breath); Palpitations; Encounter for immunization; Advance directive discussed with patient; Medication management; Stage 3a chronic kidney disease (HCC) Start: 11-19-2022 Chart abstracting Dustin fontenot MD Work Phone: [facility] Comment on above: Results (Labs /) Start: 11-18-2022 End: 11-18-[address] Dustin Joyner Work Phone: [facility]-Laboratory, Specimen Start: 11-15-2022 End: 11-15-[address] Dustin Joyner Work Phone: [facility] Work Phone: Start: 11-15-2022 End: 11-15-[address] Dustin Joyner Work Phone: [facility] Start: 09-24-2022 Telephone encounter Shakeel bates APRN.BUNDLER Work Phone: [facility] Comment on above: Results (Opened in e rror) Start: 09-20-2022 Telephone encounter Shakeel bates CIGAR SORTER.BUNDLER Work Phone: [facility] Comment on above: Results Start: 08-29-2022 Refill Dustin murillo MD Work Phone: [facility] Comment on above: Refill Request Start: 08-21-2022 Chart abstracting Dustin fontenot MD Work Phone: [facility] Comment on above: Results Start: 08-16-2022 Telephone encounter Shakeel bates APRN.BUNDLER Work Phone: [facility] Comment on above: Results Start: 08-15-2022 End: 08-15-2022 Patient encounter procedure Shakeel Collins CIG[employer] SORTER.BUNDLER Work Phone: [facility] Comment on above: Chest pain, unspecif ied type (Primary Dx); Essential hypertension Start: 08-15-2022 End: 08-15-2022 [facility] Work Phone: Cat Scan Comment on above: Hydronephrosis, unsp ecified hydronephrosis type [N13.30] Start: 08-01-2022 Telephone encounter Dustin Hoang MD Work Phone: [facility] Comment on above: Results Start: 07-31-2022 Chart abstracting Dustin fontenot MD Work Phone: [facility] Comment on above: Consult (Consult ort ho ) Start: 07-30-2022 End: 07-30-2022 Subsequent hospital visit by physician [facility] Work Phone: Radiology Comment on above: Epigastric pain [R10 .13] Start: 07-26-2022 Telephone encounter Dustin Hoang MD Work Phone: [facility] Comment on above: Results Start: 07-25-2022 End: 07-25-2022 Patient encounter procedure Dustin Hoang MD Work Phone: [facility] Comment on above: Epigastric pain (Awa marcellus Dx); Gastroesophageal reflux disease without esophagitis; Essential hypertension; Mixed hyperlipidemia; Low serum vitamin B12; Hypercalcemia; Elevated hemoglobin A1c; Lumbar pain; Thoracic spine pain; Numbness and tingling of right leg; Balance problems Start: 04-25-2022 Refill Mamie Correa on PA-C Work Phone: [facility] Comment on above: Refill Request Start: 03-28-2022 Refill Dustin murillo MD Work Phone: [facility] Comment on above: Refill Request Start: 03-12-2022 ambulatory Dustin murillo MD Work Phone: [facility] Comment on above: Blood pressure Start: 02-26-2022 Telephone encounter Dustin Hoang MD Work Phone: [facility] Comment on above: Blood Pressure Check Start: 02-26-2022 End: 02-26-2022 Nursing evaluation of patient and report Mi Nurse Work Phone: [facility] Comment on above: Essential hypertensi on (Primary Dx) Start: 02-13-2022 Telephone encounter Dustin Hoang MD Work Phone: [facility] Comment on above: Blood Pressure Check Start: 02-13-2022 End: 02-13-2022 Nursing evaluation of patient and report Mi Nurse Work Phone: [facility] Comment on above: Essential hypertensi on (Primary Dx) Start: 01-14-2022 Telephone encounter Dustin Hoang MD Work Phone: [facility] Comment on above: Blood Pressure Check Start: 01-09-2022 End: 01-09-2022 Nursing evaluation of patient and report Mi Nurse Work Phone: [facility] Comment on above: Essential hypertensi on (Primary Dx) Start: 01-06-2022 Telephone encounter Dustin Hoang MD Work Phone: [facility] [place] Comment on above: Results Start: 12-23-2021 Telephone encounter Dustin Hoang MD Work Phone: [facility] Comment on above: Results Start: 12-19-2021 End: 12-19-2021 Patient encounter procedure Dustin Hoang MD Work Phone: [facility] [place] Comment on above: Medicare annual well ness visit, subsequent (Primary Dx); Essential hypertension; Mixed hyperlipidemia; Elevated hemoglobin A1c; Gastroesophageal reflux disease without esophagitis; Irritable bowel syndrome, unspecified type; Overactive bladder; AK (actinic keratosis); Chronic pain syndrome; Medication management; Advance directive discussed with patient; Living will in place Start: 11-08-2021 Refill Mamie Correa on PA-C Work Phone: [facility] Comment on above: Refill Request Start: 11-03-2021 Telephone encounter Iram Velez APRN.BUNDLER Work Phone: [facility] Comment on above: Results Start: 11-02-2021 Telephone encounter Iram Velez APRN.BUNDLER Work Phone: [facility] Comment on above: Results Start: 10-31-2021 Telephone encounter Maria Luisa Bradley APRN.BUNDLER Work Phone: [facility] Comment on above: Results Start: 10-30-2021 End: 10-30-2021 Patient encounter procedure Flores Peters PA-C Work Phone: [facility] Comment on above: Facial rash (Primary Dx) Start: 04-17-2020 Patient encounter procedure Flores Peters PA-C Work Phone: [facility] Work Phone: Start: 04-17-2020 Patient encounter status Flores Peters PA-C Work Phone: [facility] Work Phone: Start: 05-09-2017 Patient encounter status Flores Singhann RENEE Work Phone: [facility] Work Phone: Procedures Date Procedure Procedure Detail Performing Clinician Start: 07-02-2024 Adult depression scr eening assessment Shakeel Olivoapril CIGAR SORTER.BUNDLER Work Phone: Start: 12-16-2023 Noninvasive ear/puls e oximetry multiple deter Dustin Hoang MD Work Phone: Start: 11-24-2023 Brncdilat rspse spmt ry pre&post-brncdilat admn Dustin Hoang MD Work Phone: Start: 11-24-2023 Ct head/brain w/o co ntrast material Dustin Hoang MD Work Phone: Start: 11-21-2023 Radiologic exam ches t 2 views Dustin Hoang MD Work Phone: Start: 11-21-2023 Ecg routine ecg w/le ast 12 lds i&r only Dustin Hoang MD Work Phone: Start: 04-21-2023 Radiologic exam ches t 2 views Monica Tan PA-C Work Phone: Start: 04-21-2023 Iadna nos amplified probe tq each organism Monica Tan PA-C Work Phone: Start: 01-29-2023 Plain chest X-ray Dr. Stevie Joyner Work Phone: Start: 01-29-2023 Cardiovascular stres s test using pharmacologic stress agent Dr. Dustin Joyner Work Phone: Start: 12-30-2022 Computed tomography of abdomen and pelvis with contrast Dr. Dustin Joyner Work Phone: Start: 11-20-2022 [employer] COVI D-19 BIVALENT VACCINE, AGE 12+ YR Dustin Hoang MD Work Phone: Start: 11-18-2022 Giardia Antigen (JONATHAN) D cb Joyner Work Phone: Start: 11-18-20[address] Ova [address] parasites identification Dr. Dustin Joyner Work Phone: Start: 08-15-2022 Ct abdomen w/contras t material Dustin Hoang MD Work Phone: Start: 07-30-2022 Us abdominal real ti me w/image limited Dustin Hoang MD Work Phone: Clostridium difficil e detection Dr. Dustin Joyner Work Phone: Lactoferrin measurement Dr. Dustin Joyner Work Phone: Measurement of occul t blood in stool specimen using immunoassay Dr. Dustin Joyner Work Phone: Nucleic acid assay Dr. Rodney Joyner Work Phone: Plan of Treatment Date Care Activity Detail Author Start: 07-09-2034 Urine microalbumin profile DTaP,Tdap,Td Vaccine (2 - Td or Tdap) [facility] Start: 07-02-2027 Diabetes Screening Diabetes Screening [facility] Start: 11-20-2026 Diabetes Screening Diabetes Screening [facility] Start: 05-22-2026 Diabetes Screening Diabetes Screening [facility] Start: 11-20-2025 DIABETES SCREEN DIABETES SCREEN [facility] Start: 11-20-2025 Diabetes Screening Diabetes Screening [facility] Start: 09-23-2025 DIABETES SCREEN DIABETES SCREEN [facility] Start: 09-19-2025 DIABETES SCREEN DIABETES SCREEN [facility] Start: 07-25-2025 DIABETES SCREEN DIABETES SCREEN [facility] Start: 07-02-2025 Anxiety Screening Anxiety Screening [facility] Start: 07-02-2025 Depression Screening Depression Screening [facility] Start: 01-07-2025 End: 01-07-2025 Patient encounter procedure [facility] Comment on above: 6 month follow up Start: 12-19-2024 DIABETES SCREEN DIABETES SCREEN [facility] Start: 10-02-2024 Covid-19 Vaccine () Covid-19 Vaccine () [facility] Start: 07-05-2024 End: 10-04-2024 Bacteria identified in Urine by Culture BACTERIAL CULTURE, URINE Microbiology Routine Abnormal urinalysis Expected: 07/05/2024, Expires: 10/04/2024 [facility] Work Phone: Comment on above: Expected: 07/05/2024, Expires: Start: 07-02-2024 End: 07-02-2024 Patient encounter procedure 07/02/2024 2:00 PM EST Office Visit [facility] [place] [address] [place] [address] Shakeel Collins APRN.BUNDLER [address] [place], [place] [id number] Medicare wellness [facility] Comment on above: Medicare wellness Start: 06-19-2024 DIABETES SCREEN DIABETES SCREEN [facility] Start: 06-09-2024 Advance Directive Discussion Advance Directive Discussion [facility] Start: 05-31-2024 End: 05-31-2024 Patient encounter procedure 05/31/2024 10:20 AM EST Office Visit [facility] [address] [facility], [place] [id number] Shakeel Collins, CIGAR SORTER.BUNDLER [address] [place], [place] [id number] Medicare wellness [facility] Comment on above: Medicare wellness Start: 05-07-2024 End: 08-06-2024 CBC W Auto Differential panel - Blood COMPLETE BLOOD COUNT AND DIFFERENTIAL Lab Routine Stage 3a chronic kidney disease (HCC) Expected: 05/07/2024, Expires: 08/06/2024 [facility] Comment on above: Expected: 05/07/2024, Expires: Start: 05-07-2024 End: 08-06-2024 Cobalamin (Vitamin B12) [Mass/volume] in Serum or Plasma VITAMIN B12 Lab Routine Gastroesophageal reflux disease without esophagitis Low serum vitamin B12 Medication management Expected: 05/07/2024, Expires: 08/06/2024 [facility] Comment on above: Expected: 05/07/2024, Expires: Start: 05-07-2024 End: 08-06-2024 Comprehensive metabolic 2000 panel - Serum or Plasma COMPREHENSIVE METABOLIC PANEL Lab Routine Essential hypertension Mixed hyperlipidemia Stage 3a chronic kidney disease (HCC) PAC (premature atrial contraction) Expected: 05/07/2024, Expires: 08/06/2024 [facility] Comment on above: Expected: 05/07/2024, Expires: Start: 05-07-2024 End: 08-06-2024 Hemoglobin A1c in Blood HEMOGLOBIN A1C Lab Routine Elevated hemoglobin A1c Expected: 05/07/2024, Expires: 08/06/2024 [facility] Comment on above: Expected: 05/07/2024, Expires: Start: 05-07-2024 End: 08-06-2024 LIPID PANEL, NONFASTING LIPID PANEL, NONFASTING Lab Routine Essential hypertension Mixed hyperlipidemia Expected: 05/07/2024, Expires: 08/06/2024 [facility] Comment on above: Expected: 05/07/2024, Expires: Start: 05-07-2024 End: 08-06-2024 Magnesium [Mass/volume] in Serum or Plasma MAGNESIUM Lab Routine Gastroesophageal reflux disease without esophagitis Medication management Expected: 05/07/2024, Expires: 08/06/2024 [facility] Comment on above: Expected: 05/07/2024, Expires: Start: 05-07-2024 End: 08-06-2024 Thyrotropin [Units/volume] in Serum or Plasma THYROID STIMULATING HORMONE Lab Routine PAC (premature atrial contraction) Expected: 05/07/2024, Expires: 08/06/2024 [facility] Comment on above: Expected: 05/07/2024, Expires: Start: 05-07-2024 End: 08-06-2024 Urinalysis complete panel - Urine URINALYSIS, WITH MICROSCOPIC Lab Routine Essential hypertension Mixed hyperlipidemia Expected: 05/07/2024, Expires: 08/06/2024 [facility] Comment on above: Expected: 05/07/2024, Expires: Start: 02-08-2024 Covid-19 Vaccine () Covid-19 Vaccine () [facility] Start: 02-08-2024 Covid-19 Vaccine ( season) Covid-19 Vaccine () [facility] Start: 02-08-2024 Influenza vaccination Influenza Vaccine (#1) [place] Laura nguyen Start: 02-02-2024 End: 02-02-2024 Nursing evaluation of patient and report 02/02/2024 8:15 AM EDT Nurse Visit Cardiology [address] [place] [id number] [facility], Nurse Card Admin [facility] [address] [place] [id number] Essential hypertension [I10] Cardiology Comment on above: Essential hypertension [I10] Start: 02-02-2024 End: 02-02-2024 Patient encounter procedure Nuclear Medicine Comment on above: Essential hypertension [I10] Start: 12-31-2023 End: 12-31-2023 Patient encounter procedure 12/31/2023 3:30 PM EDT Office Visit Vasculary Surgery [address] [place] [id number] Dizziness [R42] [facility] Comment on above: Dizziness [R42] Start: 12-16-2023 End: 12-16-2023 Patient encounter procedure 12/16/2023 2:40 PM EDT Office Visit Cardiology [address] [place] [id number] Chest pressure [R07.89]; MON[place]OM[place] (dyspnea on exertion) [R06.09]; Decreased stamina [R53.83] Cardiology Comment on above: Chest pressure [R07.89]; [place] (dyspnea on exertion) [R06.09]; Decreased stamina [R53.83] Start: 12-16-2023 End: 12-16-2023 ambulatory 12/16/2023 2:00 PM EDT Procedure [facility] [address] [place] [address] [facility], Pulm Lab [facility] [address] [place] [address] [place] (dyspnea on exertion) [R06.09] [facility] Comment on above: [place] (dyspnea on exertion) [R06.09] Start: 11-28-2023 End: 11-28-2023 Patient encounter procedure 11/28/2023 12:20 PM EDT Office Visit [facility] [place] [address] [place], [place] [phone] Dustin Hoang MD [address] [place] [address] 1 week follow up [facility] Comment on above: 1 week follow up Start: 11-21-2023 SHINGRIX VACCINE (2 of 2) SHINGRIX VACCINE (2 of 2) [facility] Comment on above: Postponed from 04/25/2022 (Insurance Cov erage) Start: 11-21-2023 End: 11-21-2023 Patient encounter procedure 11/21/2023 11:00 AM EDT Office Visit [facility] [place] [address] [place] [address] Dustin Hoang MD [address] [place], [place] [address] 6 month follow up [facility] Comment on above: 6 month follow up Start: 09-21-2023 Covid-19 Vaccine () Covid-19 Vaccine () [facility] Start: 06-09-2023 Advance Directive Discussion Advance Directive Discussion [facility] Start: 06-09-2023 Behavioral Health Screening Behavioral Health Screening [facility] Start: 06-09-2023 Depression Assessment Depression Assessment [facility] Start: 05-09-2023 End: 07-09-2023 CBC W Auto Differential panel - Blood CBC + DIFF Lab Routine Low serum vitamin B12 Medication management Expected: 05/09/2023, Expires: 07/09/2023 [facility] Work Phone: Comment on above: Expected: 05/09/2023, Expires: Start: 05-09-2023 End: 07-09-2023 Cobalamin (Vitamin B12) [Mass/volume] in Serum or Plasma VITAMIN B12 BLOOD Lab Routine Gastroesophageal reflux disease without esophagitis Low serum vitamin B12 Medication management Expected: 05/09/2023, Expires: 07/09/2023 [facility] Work Phone: Comment on above: Expected: 05/09/2023, Expires: Start: 05-09-2023 End: 07-09-2023 Comprehensive metabolic 2000 panel - Serum or Plasma COMP METABOLIC PANEL Lab Routine Mixed hyperlipidemia Essential hypertension Expected: 05/09/2023, Expires: 07/09/2023 [facility] Work Phone: Comment on above: Expected: 05/09/2023, Expires: Start: 05-09-2023 End: 07-09-2023 Hemoglobin A1c in Blood HGB A1C Lab Routine Elevated hemoglobin A1c Expected: 05/09/2023, Expires: 07/09/2023 [facility] Work Phone: Comment on above: Expected: 05/09/2023, Expires: 4 Start: 05-09-2023 End: 07-09-2023 LIPID PANEL, NONFASTING LIPID PANEL, NONFASTING Lab Routine Mixed hyperlipidemia Essential hypertension Expected: 05/09/2023, Expires: 07/09/2023 [facility] Work Phone: Comment on above: Expected: 05/09/2023, Expires: 4 Start: 05-09-2023 End: 07-09-2023 Magnesium [Mass/volume] in Serum or Plasma MAGNESIUM BLD Lab Routine Gastroesophageal reflux disease without esophagitis Medication management Expected: 05/09/2023, Expires: 07/09/2023 [facility] Work Phone: Comment on above: Expected: 05/09/2023, Expires: Start: 05-09-2023 End: 07-09-2023 Urinalysis complete panel - Urine URINALYSIS, WITH MICROSCOPIC Lab Routine Mixed hyperlipidemia Essential hypertension Expected: 05/09/2023, Expires: 07/09/2023 [facility] Work Phone: Comment on above: Expected: 05/09/2023, Expires: 4 Start: 03-22-2023 COVID-19 VACCINE (5 - Pfizer series) COVID-19 VACCINE (5 - Pfizer series) [facility] Start: 02-07-2023 Covid-19 Vaccine (2022- season) Covid-19 Vaccine () [facility] Start: 02-07-2023 Influenza vaccination [facility] Start: 01-29-2023 [facility] Start: 12-19-2022 SHINGRIX VACCINE (1 of 2) SHINGRIX VACCINE (1 of 2) [facility] Comment on above: Postponed from 1989 (Insurance Cov erage) Start: 12-19-2022 Urine microalbumin profile DTAP,TDAP,TD (1 - Tdap) [facility] Comment on above: Postponed from 1958 (Insurance Cov erage) Start: 11-18-2022 Elastase, pancreatic (el-1), fecal; quantitative [facility] Start: 11-18-2022 Fat [Presence] in Stool [facility] Start: 11-18-2022 Protein measurement [facility] Start: 11-18-2022 [facility] Start: 09-20-2022 End: 11-20-2022 Comprehensive metabolic 2000 panel - Serum or Plasma COMP METABOLIC PANEL Lab Routine Elevated serum creatinine Expected: 09/20/2022, Expires: 11/20/2022 [facility] Work Phone: Comment on above: Expected: 09/20/2022, Expires: 3 Start: 08-15-2022 End: 10-15-2022 CBC W Auto Differential panel - Blood [facility] Work Phone: Comment on above: Expected: 08/15/2022, Expires: 3 Start: 08-15-2022 End: 10-15-2022 HIGH SENSITIVITY TROPONIN T HIGH SENSITIVITY TROPONIN T Lab Routine Chest pain, unspecified type Expected: 08/15/2022, Expires: 10/15/2022 [facility] Work Phone: Comment on above: Expected: 08/15/2022, Expires: 3 Start: 08-01-2022 End: 10-01-2022 CREATININE BLD CREATININE BLD Lab Routine Hydronephrosis, unspecified hydronephrosis type Expected: 08/01/2022, Expires: 10/01/2022 [facility] Work Phone: Comment on above: Expected: 08/01/2022, Expires: 3 Start: 07-25-2022 End: 09-24-2022 Amylase [Enzymatic activity/volume] in Serum or Plasma [facility] Work Phone: Comment on above: Expected: 07/25/2022, Expires: 3 Start: 07-25-2022 End: 09-24-2022 Calcium [Mass/volume] in Serum or Plasma [facility] Work Phone: Comment on above: Expected: 07/25/2022, Expires: 3 Start: 07-25-2022 End: 09-24-2022 Cobalamin (Vitamin B12) [Mass/volume] in Serum or Plasma [facility] Work Phone: Comment on above: Expected: 07/25/2022, Expires: 3 Start: 07-25-2022 End: 09-24-2022 Hemoglobin A1c in Blood [facility] Work Phone: Comment on above: Expected: 07/25/2022, Expires: 3 Start: 07-25-2022 End: 09-24-2022 Hepatic function 2000 panel - Serum or Plasma [facility] Work Phone: Comment on above: Expected: 07/25/2022, Expires: 3 Start: 07-25-2022 End: 09-24-2022 Lipase [Enzymatic activity/volume] in Serum or Plasma [facility] Work Phone: Comment on above: Expected: 07/25/2022, Expires: 3 Start: 07-25-2022 End: 09-24-2022 LIPID PANEL, NONFASTING [facility] Work Phone: Comment on above: Expected: 07/25/2022, Expires: 3 Start: 07-25-2022 End: 09-24-2022 Parathyrin.intact [Mass/volume] in Serum or Plasma [facility] Work Phone: Comment on above: Expected: 07/25/2022, Expires: 3 Start: 06-09-2022 ADVANCE DIRECTIVE DISCUSSION ADVANCE DIRECTIVE DISCUSSION [facility] Start: 06-09-2022 DEPRESSION ASSESSMENT DEPRESSION ASSESSMENT [facility] Start: 04-25-2022 SHINGRIX VACCINE (2 of 2) SHINGRIX VACCINE (2 of 2) [facility] Start: 02-07-2022 End: 04-09-2022 25-hydroxyvitamin D3 [Mass/volume] in Serum or Plasma VITAMIN D 25 HYDROXY Lab Routine Hypercalcemia Expected: 02/07/2022, Expires: 04/09/2022 [facility] Work Phone: Comment on above: Expected: 02/07/2022, Expires: 2 Start: 02-07-2022 End: 04-09-2022 Calcium [Mass/volume] in Serum or Plasma CALCIUM TOTAL BLD Lab Routine Hypercalcemia Expected: 02/07/2022, Expires: 04/09/2022 [facility] Work Phone: Comment on above: Expected: 02/07/2022, Expires: 2 Start: 02-07-2022 Influenza vaccination INFLUENZA (#1) [facility] Start: 02-07-2022 End: 04-09-2022 Parathyrin.intact [Mass/volume] in Serum or Plasma PTH INTACT BLD Lab Routine Hypercalcemia Expected: 02/07/2022, Expires: 04/09/2022 [facility] Work Phone: Comment on above: Expected: 02/07/2022, Expires: 2 Start: 12-23-2021 End: 02-22-2022 Calcium [Mass/volume] in Serum or Plasma CALCIUM TOTAL BLD Lab Routine Hypercalcemia Expected: 12/23/2021, Expires: 02/22/2022 [facility] Work Phone: Comment on above: Expected: 12/23/2021, Expires: 2 Start: 12-23-2021 End: 02-22-2022 Parathyrin.intact [Mass/volume] in Serum or Plasma PTH INTACT BLD Lab Routine Hypercalcemia Expected: 12/23/2021, Expires: 02/22/2022 [facility] Work Phone: Comment on above: Expected: 12/23/2021, Expires: 2 Start: 12-19-2021 End: 02-18-2022 Hemoglobin A1c in Blood [facility] Work Phone: Comment on above: Expected: 12/19/2021, Expires: 2 Start: 12-19-2021 End: 02-18-2022 Urinalysis complete panel - Urine [facility] Work Phone: Comment on above: Expected: 12/19/2021, Expires: 2 Start: 10-30-2021 End: 12-30-2021 Bacteria identified in Wound by Culture WOUND CULTURE AND GRAM STAIN Microbiology Routine Facial rash Expected: 10/30/2021, Expires: 12/30/2021 [facility] Work Phone: Comment on above: Expected: 10/30/2021, Expires: 2 Start: 10-30-2021 End: 12-30-2021 Herpes simplex virus+Varicella zoster virus DNA [Presence] in Unspecified specimen by SHIRAZ with probe detection HSV 1,2/VZV AMP MOLECULAR DETECT Lab Routine Facial rash Expected: 10/30/2021, Expires: 12/30/2021 [facility] Work Phone: Comment on above: Expected: 10/30/2021, Expires: 2 Start: 07-29-2021 COVID-19 VACCINE (4 - Booster for Pfizer series) COVID-19 VACCINE (4 - Booster for Pfizer series) [facility] Start: 06-09-2021 ADVANCE DIRECTIVE DISCUSSION ADVANCE DIRECTIVE DISCUSSION [facility] Start: 06-09-2021 DEPRESSION ASSESSMENT DEPRESSION ASSESSMENT [facility] Start: 05-23-2021 COVID-19 VACCINE (4 - Booster for Pfizer series) COVID-19 VACCINE (4 - Booster for Pfizer series) [facility] Start: 2014 RSV Vaccine (1 - 1-dose 75+ series) RSV Vaccine (1 - 1-dose 75+ series) [facility] Start: 1999 RSV Vaccine (1 - 1-dose 60+ series) RSV Vaccine (1 - 1-dose 60+ series) [facility] Start: 1989 SHINGRIX VACCINE (1 of 2) SHINGRIX VACCINE (1 of 2) [facility] Start: 1958 Urine microalbumin profile [facility] Start: 1957 Anxiety Screening Anxiety Screening [facility] Start: 1957 Depression Screening Depression Screening [facility] End: 08-31-2023 Ct abdomen w/contrast material CT ABDOMEN W IVCON Radiology Routine Hydronephrosis, unspecified hydronephrosis type Dilation of biliary tract 1 Occurrences starting 08/01/2022 until 08/31/2023 [facility] Work Phone: Comment on above: 1 Occurrences starting 08/01/2022 until 08/31/2023 End: 08-16-2023 ECG COMPLETE ECG COMPLETE ECG Routine Chest pain, unspecified type 1 Occurrences starting 08/15/2022 until 08/16/2023 [facility] Work Phone: Comment on above: 1 Occurrences starting 08/15/2022 until 08/16/2023 ECG COMPLETE ECG COMPLETE ECG 11/21/2023 12:18 PM EDT [facility] End: 11-20-2024 Echocardiography ECHO Cardiology Routine Chest pressure [place]ERY (dyspnea on exertion) Decreased stamina 1 Occurrences starting 11/21/2023 until 11/20/2024 [facility] Work Phone: Comment on above: 1 Occurrences starting 11/21/2023 until 11/20/2024 Fat [Mass/mass] in Stool [facility] Fat.neutral [Presenc e] in Stool [facility] EVENT MONITOR [facility]ART[facility] EVENT MONITOR Cardiology Routine SOB (shortness of breath) Palpitations Ordered: 11/20/2022 [facility] Work Phone: Comment on above: Ordered: 11/20/2022 NM CARDIAC PERF STRESS/PHARM NM CARDIAC PERF STRESS/PHARM Radiology STAT Angina pectoris (HCC) SOB (shortness of breath) Palpitations Ordered: 11/20/2022 [facility] Work Phone: Comment on above: Ordered: 11/20/2022 End: 12-20-2024 NM Heart Perfusion W stress and W radionuclide IV NM CARDIAC PERF STRESS/PHARM Radiology Routine Essential hypertension Chest pressure [place] (dyspnea on exertion) Decreased stamina Encounter for screening for cardiovascular disorders 1 Occurrences starting 11/21/2023 until 12/20/2024 [facility] Comment on above: 1 Occurrences starting 11/21/2023 until 12/20/2024 Ova and parasites identified in Unspecified specimen by Light microscopy [facility] End: 12-27-2024 OXIMETRY WITH AMBULATION OXIMETRY WITH AMBULATION PFT Routine [place] (dyspnea on exertion) 1 Occurrences starting 11/28/2023 until 12/27/2024 [facility] Work Phone: Comment on above: 1 Occurrences starting 11/28/2023 until 12/27/2024 Patient Education ED Weakness (U ncertain Cause) [facility] Work Phone: Patient referral [facility] Work Phone: SPIROMETRY - BASELIN E AND POST DILATOR SPIROMETRY - BASELINE AND POST DILATOR PFT Routine [place] (dyspnea on exertion) Decreased stamina Ex-smoker 11/24/2023 1:00 PM EDT [facility] Work Phone: End: 08-24-2023 Us abdominal real time w/image limited US ABD RT UPPER QUADRANT Radiology Routine Epigastric pain 1 Occurrences starting 07/25/2022 until 08/24/2023 [facility] Work Phone: Comment on above: 1 Occurrences starting 07/25/2022 until 08/24/2023 End: 11-20-2024 US Carotid arteries - bilateral US CAROTID ARTERIES [facility] Lab Routine Dizziness 1 Occurrences starting 11/21/2023 until 11/20/2024 [facility] Comment on above: 1 Occurrences starting 11/21/2023 until 11/20/2024 End: 12-20-2024 XR Chest PA and Lateral XR CHEST 2V FRONTAL/LAT Radiology Routine Chest pressure [place]ERY (dyspnea on exertion) Decreased stamina Ex-smoker 1 Occurrences starting 11/21/2023 until 12/20/2024 [facility] Comment on above: 1 Occurrences starting 11/21/2023 until 12/20/2024 XR Chest PA and Lateral XR CHEST 2V FRONTAL/LAT Radiology Routine Chest pressure [place]ERY (dyspnea on exertion) Decreased stamina Ex-smoker 11/21/2023 1:21 PM EDT [facility] Immunizations Immunization Date Immunization Notes Care Provider Hood maldonado 07-09-2024 respiratory syncytia l virus (RSV) vaccine, unspecified formulation Shakeel Collins APRN.BUNDLER Work Phone: [facility] 07-09-2024 tetanus toxoid, redu cyndee diphtheria toxoid, and acellular pertussis vaccine, adsorbed Shakeel Collins APRN.BUNDLER Work Phone: [facility] 04-03-2024 COVID-19 vaccine, ag e 12+ yr (MODERNA) Dustin Hoang MD Work Phone: [facility] 04-03-2024 Seasonal trivalent influenza vaccine, adjuvanted, preservative free Dustin Hoang MD Work Phone: [facility] 05-22-2023 COVID-19 vaccine, ag e 12+ yr, season (PFIZER-BIONTMosa Records) Dustin Hoang MD Work Phone: [facility] 05-22-2023 influenza (HD-IIV4) vaccine, age 65+ yr, high dose, quadrivalent, PF (FLUZONE HIGH-DOSE) Dustin Hoang MD Work Phone: [facility] 05-22-2023 influenza virus vacc ine, unspecified formulation Pulm Wstr Work Phone: [facility] 11-20-2022 COVID-19 vaccine, ag e 12+ yr, bivalent (Shogether) Dustin Hoang MD Work Phone: [facility] 02-28-2022 influenza (HD-IIV4) vaccine, age 65+ yr, high dose, quadrivalent, PF (FLUZONE HIGH-DOSE) Dustin Hoang MD Work Phone: [facility] 02-28-2022 influenza, high dose seasonal, preservative-free Dustin Hoang MD Work Phone: [facility] 02-28-2022 zoster vaccine recombinant Dustin Hoang MD Work Phone: [facility] 02-28-2022 influenza virus vacc ine, unspecified formulation Mamie Sotelo PA-C Work Phone: [facility] 03-28-2021 influenza, high-dose , quadrivalent vaccine (FLUZONE HIGH DOSE QUADRIVALENT) Flores Peters PA-C Work Phone: [facility] 03-15-2020 influenza, high dose seasonal, preservative-free Flores Peters PA-C Work Phone: [facility] 03-15-2020 influenza, high-dose , quadrivalent vaccine (FLUZONE HIGH DOSE QUADRIVALENT) Flores Peters PA-C Work Phone: [facility] 03-11-2019 influenza, seasonal, injectable Flores Peters PA-C Work Phone: [facility] 03-11-2019 Seasonal trivalent influenza vaccine, adjuvanted, preservative free Dustin Hoang MD Work Phone: [facility] 03-27-2018 influenza, high dose seasonal, preservative-free Dustin Hoang MD Work Phone: [facility] 05-09-2017 pneumococcal polysaccharide vaccine, 23 valent Flores Peters PA-C Work Phone: [facility] 03-07-2017 influenza, high dose seasonal, preservative-free Flores Athy PA-C Work Phone: [facility] 03-03-2017 influenza, high dose seasonal, preservative-free Dustin Hoang MD Work Phone: [facility] 02-28-2016 influenza, high dose seasonal, preservative-free Flores Athy PA-C Work Phone: [facility] 03-30-2015 influenza, high dose seasonal, preservative-free Dustin Hoang MD Work Phone: [facility] 08-23-2014 pneumococcal conjuga te vaccine, 13 valent Flores Athy PA-C Work Phone: [facility] 04-09-2014 influenza, seasonal, injectable Flores Athy PA-C Work Phone: [facility] 03-15-[address] Dustin Joyner Work Phone: [facility] 03-23-2012 influenza virus vacc ine, unspecified formulation Flores Athy PA-C Work Phone: [facility] 07-18-2010 pneumococcal polysaccharide vaccine, 23 valent Flores Athy PA-C Work Phone: [facility] Work Phone: 03-15-2010 influenza virus vacc ine, unspecified formulation Flores Athy PA-C Work Phone: [facility] 03-09-2009 influenza virus vacc ine, unspecified formulation Flores Athy PA-C Work Phone: [facility] Work Phone: Payers Date Payer Category Payer Self-pay [id number] 2023 Medicare AETNA MEDICARE A ETNA MEDICARE ASSURE HMO D SNP [id number] 2023-Present [phone] [address] [place] [address] Medicare [id number] 2023 Medicare (Managed Care) CYNTHIA KEATING [id number] 2023 Medicaid [id number] 2023 Medicaid [id number] 2023 Private Health Insurance 101 [id number] 2021 Medicare [id number] 2021 Unknown ANTHEM BLUE CROS S AND BLUE SHIELD ANTHEM MEDIBLUE HMO [id number] 2021-Present [phone] [address] [place] [address] O [id number] 2021 Unknown [id number] 2004 Medicare MEDICARE PART A B [id number] Unknown [id number] Unknown [id number] Unknown [id number] Unknown [id number] Unknown [id number] Unknown [id number] Unknown [id number] Social History Date Type Detail Facility Start: 08-23-2014 End: 01-14-2022 Tobacco smoking status NHIS Ex-smoker [facility] Start: 08-14-1960 End: 08-13-2014 History of tobacco use Current smoker [facility] Start: [birth year]-14-1960 End: 08-13-2014 History of tobacco use Cigarette Smoker [facility] Start: 08-23-2014 End: 11-20-2022 Cigarettes smoked current (pack per day) - Reported 1 [facility] Start: 08-23-2014 End: 01-14-2022 Tobacco use and exposure Smokeless tobacco non-user [facility] Start: 10-30-2021 End: 01-02-2024 Alcohol intake Current non-drinker of alcohol (finding) [facility] Start: 1940 Sex Assigned At Not on file [facility] Start: 12-09-2021 End: 12-19-2021 Exposure to SARS-CoV-2 (event) Not sure [facility] Start: 06-14-2022 History SDOH Alcohol Frequency 1 [facility] Start: 06-14-2022 History SDOH Social Connections Phone 5 [facility] Start: 06-14-2022 History SDOH Social Connections Membership 2 [facility] Start: 06-14-2022 History SDOH Social Connections Living 3 [facility] Start: 06-14-2022 History SDOH Physical Activity DPW 0 [facility] Start: 06-14-2022 History SDOH Stress 4 [facility] Start: 11-15-2022 End: 01-29-2023 Tobacco smoking status WIIS Unknown if ever smoked [facility] Start: 08-14-2014 None [facility] Start: 08-14-2014 Spouse/ Significant Other [facility] Start: 08-14-2014 Cigarettes [facility] Start: 1940 Sex Assigned At Female [facility] Start: 06-14-2022 End: 11-20-2022 Social connection and isolation panel [facility] Do you belong to any clubs or organizations such as hoahaoism groups, unions, fraternal or athletic groups, or school groups? No [facility] Are you now , , , , never or living with a partner? [facility] How often to you hav e a drink containing alcohol? Never [facility] Average Number of Drinks Not on file [facility] Work Phone: How hard is it for y ou to pay for the very basics like food, housing, medical care, and heating Somewhat hard [facility] Do you feel stress - tense, restless, nervous, or anxious, or unable to sleep at night because your mind is troubled all the time - these days [OSQ] Rather much [facility] (I/We) worried elliot er (my/our) food would run out before (I/we) got money to buy more. Sometimes true [facility] The food that (I/we) bought just didn't last, and (I/we) didn't have money to get more. Never true [facility] Functional Status Date Assessment Result Facility 09-21-2014 Are you deaf, or do you have serious difficulty hearing No 09/21/2014 10:25 AM Sommer Castellano RPFT No [facility] 09-21-2014 Are you blind, or do you have serious difficulty seeing, even when wearing glasses No 09/21/2014 10:25 AM Sommer Castellano RPFT No [facility] 09-21-2014 Do you have serious difficulty walking or climbing stairs Yes 09/21/2014 10:25 AM Sommer Castellano RPFT Yes [facility] 09-21-2014 Do you have difficul ty dressing or bathing No 09/21/2014 10:25 AM Sommer Castellano RPFT No [facility] 09-21-2014 Because of a physica l, mental, or emotional condition, do you have difficulty doing errands alone such as visiting a physician's office or shopping No 09/21/2014 10:25 AM EDT Sommer Prieto RPNILA No [facility] Mental Status Date Assessment Result Facility 01-29-2023 Cognitive function Level Of Cons ciousness Awake;Alert;Appropriate;Fol lows Commands [facility] Work Phone: 09-21-2014 Because of a physica l, mental, or emotional condition, do you have serious difficulty concentrating, remembering, or making decisions No 09/21/2014 10:25 AM EDT Sommer Prieto RPFT No [facility] Clinical Notes 10-30-2021 to 11-11-2024 Telephone Encounter - Abraham Donovan LPN - 11/11/2024 12:18 PM EDTTelephone Encounter - Abraham Donovan LPN - 11/11/2024 12:18 PM Shakeel Harris APRN.[facility] - 07/02/2024 1:50 PM EST Note Date & Type Note Facility 11-11-2024 Telephone encounter Note Prescription Refill Information The patient has been identified by name and date of : Yes Caregiver verified no other encounters exist for this prescription request: Yes Caregiver confirmed with patient/requestor that no other refills are due, in the near future, with this provider at this time: Yes The last office visit in the department: 07/02/24 Does the patient have a future office visit with this provider/department: Yes Requested Prescriptions Pending Prescriptions Disp Refills lisinopril (ZESTRIL) 40 mg tablet 180 tablet 1 Sig: Take 1 tablet by mouth two times a day. rosuvastatin (CRESTOR) 20 mg tablet 90 tablet 1 Sig: Take 1 tablet by mouth daily at bedtime. Abraham Donovan LPN November 11, 2024 12:18 PM [facility] 11-11-2024 Miscellaneous Notes Prescription Refill Information The patient has been identified by name and date of : Yes Caregiver verified no other encounters exist for this prescription request: Yes Caregiver confirmed with patient/requestor that no other refills are due, in the near future, with this provider at this time: Yes The last office visit in the department: 07/02/24 Does the patient have a future office visit with this provider/department: Yes Requested Prescriptions Pending Prescriptions Disp Refills lisinopril (ZESTRIL) 40 mg tablet 180 tablet 1 Sig: Take 1 tablet by mouth two times a day. rosuvastatin (CRESTOR) 20 mg tablet 90 tablet 1 Sig: Take 1 tablet by mouth daily at bedtime. Abraham Donovan LPN November 11, 2024 12:18 PM documented in this encounter [facility] 09-27-2024 Telephone encounter Note The following approved medication requests have been transmitted electronically. Requested Prescriptions Signed Prescriptions Disp Refills metoprolol succinate ER (TOPROL XL) 100 mg 30 tablet 5 Sig: Take 1 tablet by mouth once daily. Authorizing Provider: DUSTIN HOANG MD [facility] 09-27-2024 Miscellaneous Notes The following approved medication requests have been transmitted electronically. Requested Prescriptions Signed Prescriptions Disp Refills metoprolol succinate ER (TOPROL XL) 100 mg 30 tablet 5 Sig: Take 1 tablet by mouth once daily. Authorizing Provider: DUSTIN HOANG MD Prescription Refill Information The patient has been identified by name and date of : Yes Caregiver verified no other encounters exist for this prescription request: Yes Caregiver confirmed with patient/requestor that no other refills are due, in the near future, with this provider at this time: Yes The last office visit in the department: 07/02/24 Does the patient have a future office visit with this provider/department: Yes, 01/07/25 Requested Prescriptions Pending Prescriptions Disp Refills metoprolol succinate ER (TOPROL XL) 100 mg 30 tablet 5 Sig: Take 1 tablet by mouth once daily. Emiliano Merritt LPN September 27, 2024 4:28 PM documented in this encounter [facility] 09-27-2024 Telephone encounter Note Prescription Refill Information The patient has been identified by name and date of : Yes Caregiver verified no other encounters exist for this prescription request: Yes Caregiver confirmed with patient/requestor that no other refills are due, in the near future, with this provider at this time: Yes The last office visit in the department: 07/02/24 Does the patient have a future office visit with this provider/department: Yes, 01/07/25 Requested Prescriptions Pending Prescriptions Disp Refills metoprolol succinate ER (TOPROL XL) 100 mg 30 tablet 5 Sig: Take 1 tablet by mouth once daily. Emiliano Merritt LPN September 27, 2024 4:28 PM [facility] 08-13-2024 Telephone encounter Note Prescription Refill Information The patient has been identified by name and date of : Yes Caregiver verified no other encounters exist for this prescription request: Yes Caregiver confirmed with patient/requestor that no other refills are due, in the near future, with this provider at this time: Yes The last office visit in the department: 07/02/2024 Does the patient have a future office visit with this provider/department: Yes Requested Prescriptions Pending Prescriptions Disp Refills tolterodine ER (DETROL LA) 4 mg 24 hr capsule 90 capsule 1 Sig: Take 1 capsule by mouth once daily. doxazosin (CARDURA) 2 mg tablet 90 tablet 1 Sig: Take 1 tablet by mouth once daily. Yeni Thomas LPN August 13, 2024 10:57 AM [facility] [facility] 08[facility]2024 Miscellaneous Notes Prescription Refill Information The patient has been identified by name and date of : Yes Caregiver verified no other encounters exist for this prescription request: Yes Caregiver confirmed with patient/requestor that no other refills are due, in the near future, with this provider at this time: Yes The last office visit in the department: 07/02/2024 Does the patient have a future office visit with this provider/department: Yes Requested Prescriptions Pending Prescriptions Disp Refills tolterodine ER (DETROL LA) 4 mg 24 hr capsule 90 capsule 1 Sig: Take 1 capsule by mouth once daily. doxazosin (CARDURA) 2 mg tablet 90 tablet 1 Sig: Take 1 tablet by mouth once daily. Yeni Thomas LPN August 13, 2024 10:57 AM documented in this encounter [facility] 07-14-2024 Telephone encounter Note The following approved medication requests have been transmitted electronically. Requested Prescriptions Signed Prescriptions Disp Refills omeprazole (PRILOSEC) 40 mg capsule 90 capsule 1 Sig: Take 1 capsule by mouth daily before breakfast. 1/2 hr before meal. Authorizing Provider: DUSTIN HOANG MD [facility] 07-14-2024 Miscellaneous Notes The following approved medication requests have been transmitted electronically. Requested Prescriptions Signed Prescriptions Disp Refills omeprazole (PRILOSEC) 40 mg capsule 90 capsule 1 Sig: Take 1 capsule by mouth daily before breakfast. 1/2 hr before meal. Authorizing Provider: DUSTIN HOANG MD Prescription Refill Information The patient has been identified by name and date of : Yes Caregiver verified no other encounters exist for this prescription request: Yes Caregiver confirmed with patient/requestor that no other refills are due, in the near future, with this provider at this time: Yes The last office visit in the department: 07/02/24 Does the patient have a future office visit with this provider/department: Yes Requested Prescriptions Pending Prescriptions Disp Refills omeprazole (PRILOSEC) 40 mg capsule 90 capsule 1 Sig: Take 1 capsule by mouth daily before breakfast. 1/2 hr before meal. Abraham Donovan LPN July 14, 2024 7:35 AM documented in this encounter [facility] 07-14-2024 Telephone encounter Note Prescription Refill Information The patient has been identified by name and date of : Yes Caregiver verified no other encounters exist for this prescription request: Yes Caregiver confirmed with patient/requestor that no other refills are due, in the near future, with this provider at this time: Yes The last office visit in the department: 07/02/24 Does the patient have a future office visit with this provider/department: Yes Requested Prescriptions Pending Prescriptions Disp Refills omeprazole (PRILOSEC) 40 mg capsule 90 capsule 1 Sig: Take 1 capsule by mouth daily before breakfast. 1/2 hr before meal. Abraham Donovan LPN July 14, 2024 7:35 AM [facility] 07-12-2024 Telephone encounter Note Pt notified and verbalized understanding Samantha Meneses MA [facility] 07-12-2024 Miscellaneous Notes Pt notified and verbalized understanding Samantha Meneses MA Please let patient know her urine shows infection. I have sent in antibiotics. documented in this encounter [facility] 07-12-2024 Telephone encounter Note Please let patient know her urine shows infection. I have sent in antibiotics. [facility] 07-05-2024 Telephone encounter Note TC to patient who is agreeable to below. She will come in tomorrow, 07/06, to give urine sample to lab. CHIP Rueda [facility] 07-05-2024 Miscellaneous Notes TC to patient who is agreeable to below. She will come in tomorrow, 07/06, to give urine sample to lab. CHIP Rueda I would like patient to come in and provide another urine sample to test for bacterial growth. TC to patient who verbalized understanding of below. Patient states she has been having itching but denies burning/pain with urination, frequency, or odor. CHIP Rueda Please let patient know her hgba1c is up slightly to 5.7. Also find out if she is having any urinary symptoms. Her other labs are stable. documented in this encounter [facility] 07-05-2024 Telephone encounter Note I would like patient to come in and provide another urine sample to test for bacterial growth. [facility] 07-05-2024 Telephone encounter Note TC to patient who verbalized understanding of below. Patient states she has been having itching but denies burning/pain with urination, frequency, or odor. CHIP Rueda [facility] 07-05-2024 Telephone encounter Note Please let patient know her hgba1c is up slightly to 5.7. Also find out if she is having any urinary symptoms. Her other labs are stable. [facility] 07-02-2024 Note HNO ID: [id number] Author: SHAKEEL COLLINS APRN.CNP Service: ? Author Type: Nurse Practitioner Type: Progress Notes Filed: 07/02/2024 14:29 Note Text: Nidhi Núeñz is a 84 year old female here for a Medicare wellness visit. Medicare Health Risk Assessment General Health Fair Exercise: Minutes/Day No Exercise: Days/Week No Alcohol: Daily Use No Alcohol: Drinks/Day No Alcohol: 6 or more drinks No Feel off balance Frequently since back surgery Concerns: Teeth/Dentures No Concerns: Sexual function N/A Troubled by feelings No Frequency: Eating healthy diet Well balanced ADLs requiring help Can complete ADL's with accomodations Safety precautions in home/vehicle Yes Smoke, vape, chews tobacco No Difficulty hearing BARROW, no hearing aids Difficulty seeing Wears glasses, has appt at eye doctor coming up Current Providers Specialists: I have reviewed specialist-related care of the patient in the medical record. Current care team: Patient Care Team: Dustin Hoang MD as PCP - General (Family Medicine) Shakeel Collins APRN.CNP as [employer] Club [employer]her (Family Medicine) Mamie Sotelo PA-C as [employer] (Family Medicine) Medical/Family history review Reviewed and updated problem list, medical/surgical/family/social history, medications, and allergies. Opioid use review Opioid Medications (last 90 days) No data to display Anxiety/Depression screening PHQ-2 Score: 0 (Lower risk for anxiety) Recommendation: no further intervention at this time Cognitive screening Cognitive screening reviewed and No further action needed (score 3-5). Functional Observation Was the patient's Timed Up AND Go test unsteady or >= 12 seconds? No Advance Care Planning Surrogate decision maker and/or advance care plan documented Measurements BP 127/70 Pulse (!) 55 Wt 73 kg (161 lb) BMI 30.24 kg/m? Vision Screening: Follows with optometry/ophthalmology Assessment/Plan Medicare annual wellness visit, subsequent (Z00.00) - Counseled on healthy diet and regular exercise - Fall avoidance information provided - Personalized prevention plan provided - Discussed need for and benefit of weight loss. BMI 30.24 kg/(m2) Chief Complaint Patient presents with: Medicare Wellness Exam HPI Nidhi Núñez is a 84 year old female who presents here today for Above Complaints.. Patient presents for annual wellness visit. Reports she is doing well. Granddaughter reports patient has a cough and it has come and gone over the last month. Past medical history, appointments, medications, allergies reviewed. Previous Medical History PAST MEDICAL HISTORY Diagnosis Date Acute gastritis without mention of hemorrhage 03/30/2009 Advance directive discussed with patient 12/19/2021 Discussed 12/2021 Age-related cataract 08/07/2018 Arthritis of both knees 02/05/2018 Bilateral carotid artery stenosis 01/01/2024 US 12/2023: kendall 20-40% Celiac disease 11/21/2023 Chronic pain of both knees 02/05/2018 Chronic pain syndrome 12/19/2021 Seeing pain management Diverticulosis of colon (without mention of hemorrhage) Elevated hemoglobin A1c 08/09/2018 Essential hypertension 02/05/2015 Ex-smoker 02/01/2009 Started at age 16 up to 1 PPD, quit 2014 Family history of malignant neoplasm of gastrointestinal tract GERD (gastroesophageal reflux disease) 02/05/2015 EGD (negative Browning's) Hypoglycemia, unspecified Hypoglycemia Irritable bowel disease 02/01/[address] 04/17/2020 DPA: Meghan (daughter) Low serum vitamin B12 12/23/2021 Macular degeneration 08/07/2018 Left Mixed hyperlipidemia 10/14/2006 Osteoarth NOS-other site 10/09/2006 Overactive bladder 08/07/2018 PAC (premature atrial contraction) 01/08/2023 Per halter 12/2022 Stage 3a chronic kidney disease (HCC) 11/21/2022 Previous Surgical History PAST SURGICAL HISTORY Procedure Laterality Date *STRESS TEST PC 05/27/2017 normal 2D ECHO (EXEP) 05/27/2017 EF=70%, mild LVH, no significant valvue issues ANTERIOR COLPORRAPHY RPR CYSTOCELE W/CYSTO Cystocele repair, x2 CATARACT EXTRACTION HX Left 2011 COLONOSCOPY FLX DX W/COLLJ SPEC WHEN PFRMD 03/30/09 EGD TRANSORAL BIOPSY SINGLE/MULTIPLE 03/30/09 FECAL OCCULT BLOOD TEST 05/12/2017 negative TOTAL ABDOMINAL HYSTERECT W/WO RMVL TUBE OVARY 1970's Hysterectomy, RAY XCAPSL CTRC RMVL INSJ IO LENS PROSTH W/O ECP Right 06/2019 Cataract Extraction with PC IOL Family History FAMILY HISTORY Problem Relation Age of Onset Diabetes Mother Emphysema Mother Cancer Mother skin Colon Cancer Father liver cancer Diabetes Father Patient Allergies ALLERGIES Allergen Reactions Adhesive Tape (Jeanntete* Rash Codeine GI Upset Hctz [Thiazides] Other: See Comments Made dizzy Current Medications Current Outpatient Medications on File Prior to Visit Medication Sig lisinopril (ZESTRIL) 40 mg tablet Take 1 tablet by mouth two times (more content not included)... [facility] 07-02-2024 History of Presen t illness Narrative Images from the original note were not included. Nidhi Núñez is a 84 year old female here for a Medicare wellness visit. Medicare Health Risk Assessment General Health Fair Exercise: Minutes/Day No Exercise: Days/Week No Alcohol: Daily Use No Alcohol: Drinks/Day No Alcohol: 6 or more drinks No Feel off balance Frequently since back surgery Concerns: Teeth/Dentures No Concerns: Sexual function N/A Troubled by feelings No Frequency: Eating healthy diet Well balanced ADLs requiring help Can complete ADL's with accomodations Safety precautions in home/vehicle Yes Smoke, vape, chews tobacco No Difficulty hearing BARROW, no hearing aids Difficulty seeing Wears glasses, has appt at eye doctor coming up Current Providers Specialists: I have reviewed specialist-related care of the patient in the medical record. Current care team: Patient Care Team: Dustin Hoang MD as PCP - General (Family Medicine) Shakeel Collins APRN.BUNDLER as [employer] We[employer]her (Family Medicine) Mamie Sotelo PA-C as [employer] We[employer]her (Family Medicine) Medical/Family history review Reviewed and updated problem list, medical/surgical/family/social history, medications, and allergies. Opioid use review Opioid Medications (last 90 days) No data to display Anxiety/Depression screening PHQ-2 Score: 0 (Lower risk for anxiety) Recommendation: no further intervention at this time Cognitive screening Cognitive screening reviewed and No further action needed (score 3-5). Functional Observation Was the patient's Timed Up & Go test unsteady or >= 12 seconds? No Advance Care Planning Surrogate decision maker and/or advance care plan documented Measurements BP 127/70 Pulse (!) 55 Wt 73 kg (161 lb) BMI 30.24 kg/m Vision Screening: Follows with optometry/ophthalmology Assessment/Plan Medicare annual wellness visit, subsequent (Z00.00) - Counseled on healthy diet and regular exercise - Fall avoidance information provided - Personalized prevention plan provided - Discussed need for and benefit of weight loss. BMI 30.24 kg/(m^2) Chief Complaint Patient presents with: Medicare Wellness Exam HPI Nidhi Núñez is a 84 year old female who presents here today for Above Complaints.. Patient presents for annual wellness visit. Reports she is doing well. Granddaughter reports patient has a cough and it has come and gone over the last month. Past medical history, appointments, medications, allergies reviewed. Previous Medical History PAST MEDICAL HISTORY Diagnosis Date Acute gastritis without mention of hemorrhage 03/30/2009 Advance directive discussed with patient 12/19/2021 Discussed 12/2021 Age-related cataract 08/07/2018 Arthritis of both knees 02/05/2018 Bilateral carotid artery stenosis 01/01/2024 US 12/2023: kendall 20-40% Celiac disease 11/21/2023 Chronic pain of both knees 02/05/2018 Chronic pain syndrome 12/19/2021 Seeing pain management Diverticulosis of colon (without mention of hemorrhage) Elevated hemoglobin A1c 08/09/2018 Essential hypertension 02/05/2015 Ex-smoker 02/01/2009 Started at age 16 up to 1 PPD, quit 2014 Family history of malignant neoplasm of gastrointestinal tract GERD (gastroesophageal reflux disease) 02/05/2015 EGD (negative Browning's) Hypoglycemia, unspecified Hypoglycemia Irritable bowel disease 02/01/[address] 04/17/2020 DPA: Meghan (daughter) Low serum vitamin B12 12/23/2021 Macular degeneration 08/07/2018 Left Mixed hyperlipidemia 10/14/2006 Osteoarth NOS-other site 10/09/2006 Overactive bladder 08/07/2018 PAC (premature atrial contraction) 01/08/2023 Per vannessa 12/2022 Stage 3a chronic kidney disease (HCC) 11/21/2022 Previous Surgical History PAST SURGICAL HISTORY Procedure Laterality Date *STRESS TEST PC 05/27/2017 normal 2D ECHO (EXEP) 05/27/2017 EF=70%, mild LVH, no significant valvue issues ANTERIOR COLPORRAPHY RPR CYSTOCELE W/CYSTO Cystocele repair, x2 CATARACT EXTRACTION HX Left 2011 COLONOSCOPY FLX DX W/COLLJ SPEC WHEN PFRMD 03/30/09 EGD TRANSORAL BIOPSY SINGLE/MULTIPLE 03/30/09 FECAL OCCULT BLOOD TEST 05/12/2017 negative TOTAL ABDOMINAL HYSTERECT W/WO RMVL TUBE OVARY 1970's Hysterectomy, RAY XCAPSL CTRC RMVL INSJ IO LENS PROSTH W/O ECP Right 06/2019 Cataract Extraction with PC IOL Family History FAMILY HISTORY Problem Relation Age of Onset Diabetes Mother Emphysema Mother Cancer Mother skin Colon Cancer Father liver cancer Diabetes Father Patient Allergies ALLERGIES Allergen Reactions Adhesive Tape (Jeannette* Rash Codeine GI Upset Hctz [Thiazides] Other: See Comments Made dizzy Current Medications Current Outpatient Medications on File Prior to Visit Medication Sig lisinopril (ZESTRIL) 40 mg tablet Take 1 tablet by mouth two times a day. rosuvastatin (CRESTOR) 20 mg tablet Take 1 tablet by mouth daily at bedtime. metoprolol succinate ER (TOPROL XL) 100 mg Take 1 tablet by mouth once daily. omeprazole (PRILOSEC) 40 mg capsule Take 1 capsule by mouth daily before breakfast. 1/2 hr before meal. tolterodine ER (DETROL LA) 4 mg 24 hr capsule Take 1 capsule by mouth once daily. doxazosin (CARDURA) 2 mg tablet Take 1 tablet by mouth once daily. CREON 36,000-114,000- 180,000 unit delayed release capsule vit C/E/Zn/coppr/lutein/zeaxan (PRESERVISION AREDS-2 ORAL) Take by mouth. cyanocobalamin (VITAMIN B-12) 500 mcg tablet Take 1 tablet by mouth once daily. nystatin (MYCOSTATIN) powder Apply 1 application to affected area twice daily. diclofenac (VOLTAREN) 1 % topical gel APPLY 2 GRAMS TO AFFECTED AREA FOUR TIMES DAILY. vit A/vit C/vit E/zinc/copper (OCUVITE PRESERVISION ORAL) Take by mouth twice daily. No current facility-administered medications on file prior to visit. Social History Social History Tobacco Use Smoking status: Former Current packs/day: 0.00 Average packs/day: 1 pack/day for 55.0 years (55.0 ttl pk-yrs) Types: Cigarettes Start date: 08/14/1959 Quit date: 08/13/2014 Years since quittin.8 Smokeless tobacco: Never Vaping Use Vaping status: Never Used Substance Use Topics Alcohol use: No Drug use: No Review of Symptoms REVIEW OF SYSTEMS SEE HPI EXAM: BP 127/70 Pulse (!) 55 Wt 73 kg (161 lb) BMI 30.24 kg/m General Appearance: Well appearing, alert, in no acute distress, well-hydrated, well nourished. Skin: Skin color, texture, turgor normal, no suspicious rashes or lesions. Lungs: Lungs clear to auscultation. No wheezing, rhonchi, rales.. Heart: RRR without murmur, gallop, or rubs. No ectopy. Abdomen: Normal abdominal exam, Abdomen soft, non-tender. Bowel sounds normal. No masses, organomegaly. Musculoskeletal: No joint swelling, deformity, or tenderness. Peripheral Pulses: Normal. Neurologic: Gait normal. Reflexes normal and symmetric. Sensation grossly intact.. Health Maintenance List Depression Screening Never done Anxiety Screening Never done DTaP,Tdap,Td Vaccine(1 - Tdap) Never done RSV Vaccine(1 - 1-dose 75+ series) Never done Shingrix Vaccine(2 of 2) due on 04/25/2022 Advance Directive Discussion due on 06/09/2024 Diabetes Screening due on 11/20/2026 Bone Density Screening Completed Influenza Vaccine Completed Covid-19 Vaccine Completed Pneumococcal Vaccine: 50+ Completed Data reviewed Last 5 Encounter BP Readings: Date: BP: 07/02/2024 127/70 11/28/2023 142/80 11/21/2023 162/92 05/22/2023 124/76 04/21/2023 124/78 ASSESSMENT/PLAN: 1. Advance directive discussed with patient - ICD9: V65.49, ICD10: Z71.89 (primary diagnosis) - ADVANCE CARE PLAN DISCUSSION 2. Screening for depression - ICD9: V79.0, ICD10: Z13.31 - DEPRESSION SCREENING 3. Encounter for screening examination for other mental health and behavioral disorders - ICD9: V79.8, ICD10: Z13.39 - ANXIETY SCREENING 4. Medicare annual wellness visit, subsequent - ICD9: V70.0, ICD10: Z00.00 - Counseled on healthy diet and regular exercise - Discussed need and benefit for weight loss. BMI 30.24 kg/(m^2) - Follow up for annual exam in one year 5. Seasonal allergies - ICD9: 477.9, ICD10: J30.2 - LORATADINE 10 MG TABLET 6. Essential hypertension - ICD9: 401.9, ICD10: I10 - Controlled - Continue current medications - Recommend home blood pressure monitoring, to bring results to next visit - Encouraged sodium restriction, DASH or Mediterranean diet - Recommend regular aerobic exercise - Discussed need for and benefit of weight loss. BMI 30.24 kg/(m^2) 7. Mixed hyperlipidemia - ICD9: 272.2, ICD10: E78.2 - Controlled - Continue current medications - Counseled on healthy diet and regular exercise - Discussed need for and benefit of weight loss. BMI 30.24 kg/(m^2) 8. Overactive bladder - ICD9: 596.51, ICD10: N32.81 -continue detrol 9. Elevated hemoglobin A1c - ICD9: 790.29, ICD10: R73.09 -HEMOGLOBIN A1C 10. Stage 3a chronic kidney disease (HCC) - ICD9: 585.3, ICD10: N18.31 - eGFR: 51 Due for labs - Counseled on avoiding NSAIDs, adequate hydration 11. Low serum vitamin B12 - ICD9: 266.2, ICD10: E53.8 - VITAMIN B12 12. Gastroesophageal reflux disease without esophagitis - ICD9: 530.81, ICD10: K21.9 - Discussed lifestyle modifications including - Continue treatment with Prilosec 40 mg QD 13. PAC (premature atrial contraction) - ICD9: 427.61, ICD10: I49.1 - Continue metoprolol Shakeel Collins APRN.LISA documented in this encounter [facility] 07-02-2024 Instructions Shakeel Collins APRN.CNP - 07/02/2024 1:50 PM EST Screening schedule The following prevention plan is recommended: Depression Screening Never done Anxiety Screening Never done DTaP,Tdap,Td Vaccine(1 - Tdap) Never done RSV Vaccine(1 - 1-dose 75+ series) Never done Shingrix Vaccine(2 of 2) due on 04/25/2022 Advance Directive Discussion due on 06/09/2024 WHAT YOU CAN DO TO PREVENT FALLS Many falls can be prevented. By making some changes, you can lower your chances of falling. Four things YOU can do to prevent falls for you* and your caregiver 1. Begin a regular exercise program Exercise is one of the most important ways to lower your chances of falling. It makes you stronger and helps you feel better. Exercises that improve balance and coordination (like Sheng Chi) are the most helpful. Lack of exercise leads to weakness and increases your chances of falling. Ask your doctor or health care provider about the best type of exercise program for you. 2. Have your health care provider review your medicines Have your doctor or pharmacist review all the medicines you take, even [id number] medicines. As you get older, the way medicines work in your body can change. Some medicines, or combinations of medicines, can make you sleepy or dizzy and can cause you to fall. 3. Have your vision checked Have your eyes checked by an eye doctor at least once a year. You may be wearing the wrong glasses or have a condition like glaucoma or cataracts that limits your vision. Poor vision can increase your chances of falling. 4. Make your home safer About half of all falls happen at home. To make your home safer: Remove things you can trip over (like papers, books, clothes, and shoes) from stairs and places where you walk. Remove small throw rugs or use double-sided tape to keep the rugs from slipping. Keep items you use often in cabinets you can reach easily without using a step stool. Have grab bars put in next to your toilet and in the tub or shower. Use non-slip mats in the bathtub and on shower floors. Improve the lighting in your home. As you get older, you need brighter lights to see well. Hang light-weight curtains or shades to reduce glare. Have handrails and lights put in on all staircases. Wear shoes both inside and outside the house. Avoid going barefoot or wearing slippers. For more information, contact: Centers for Disease Control and Prevention www.cdc.gov/injury * This information may not apply if you have certain medical conditions. documented in this encounter [facility] 06-30-2024 Telephone encounter Note The patient has been identified by name and date of : Yes Caregiver verified no other encounters exist for this prescription request: Yes Caregiver confirmed with patient/requestor that no other refills are due, in the near future, with this provider at this time: Yes The last office visit in the department: 11/28/2023 Does the patient have a future office visit with this provider/department: Yes 07/02/2024 Requested Prescriptions Pending Prescriptions Disp Refills lisinopril (ZESTRIL) 40 mg tablet 180 tablet 1 Sig: Take 1 tablet by mouth two times a day. rosuvastatin (CRESTOR) 20 mg tablet 90 tablet 1 Sig: Take 1 tablet by mouth daily at bedtime. Jenny Turner LPN June 30, 2024 11:58 AM [facility] 06-30-2024 Miscellaneous Notes The patient has been identified by name and date of : Yes Caregiver verified no other encounters exist for this prescription request: Yes Caregiver confirmed with patient/requestor that no other refills are due, in the near future, with this provider at this time: Yes The last office visit in the department: 11/28/2023 Does the patient have a future office visit with this provider/department: Yes 07/02/2024 Requested Prescriptions Pending Prescriptions Disp Refills lisinopril (ZESTRIL) 40 mg tablet 180 tablet 1 Sig: Take 1 tablet by mouth two times a day. rosuvastatin (CRESTOR) 20 mg tablet 90 tablet 1 Sig: Take 1 tablet by mouth daily at bedtime. Jenny Turner LPN June 30, 2024 11:58 AM documented in this encounter [facility] 05-19-2024 Telephone encounter Note Prescription Refill Information The patient has been identified by name and date of : Yes Caregiver verified no other encounters exist for this prescription request: Yes Caregiver confirmed with patient/requestor that no other refills are due, in the near future, with this provider at this time: Yes The last office visit in the department: 11/28/23 Does the patient have a future office visit with this provider/department: Yes Requested Prescriptions Pending Prescriptions Disp Refills metoprolol succinate ER (TOPROL XL) 100 mg 30 tablet 5 Sig: Take 1 tablet by mouth once daily. Abraham Donovan LPN May 19, 2024 1:41 PM [facility] 05-19-2024 Miscellaneous Notes Prescription Refill Information The patient has been identified by name and date of : Yes Caregiver verified no other encounters exist for this prescription request: Yes Caregiver confirmed with patient/requestor that no other refills are due, in the near future, with this provider at this time: Yes The last office visit in the department: 11/28/23 Does the patient have a future office visit with this provider/department: Yes Requested Prescriptions Pending Prescriptions Disp Refills metoprolol succinate ER (TOPROL XL) 100 mg 30 tablet 5 Sig: Take 1 tablet by mouth once daily. Abraham Donovan LPN May 19, 2024 1:41 PM documented in this encounter [facility] 03-23-2024 Note HNO ID: [id number] Author: CHARLIE BRADLEY MA Service: ? Author Type: Jigsawyer Type: Progress Notes Filed: 03/23/2024 15:15 Note Text: Scan on 03/22/2024 12:21 AM by Provider, External, PA-C: Consultation - Emergency Medicine Would you like patient to follow up? Charlie Bradley MA' [facility] 03-23-2024 History of Presen t illness Narrative Scan on 03/22/2024 12:21 AM by Provider, VÍCTOR Manley: Consultation - Emergency Medicine Would you like patient to follow up? Charlie Bradley MA' documented in this encounter [facility] 03-03-2024 Telephone encounter Note The following approved medication requests have been transmitted electronically. Requested Prescriptions Signed Prescriptions Disp Refills omeprazole (PRILOSEC) 40 mg capsule 90 capsule 1 Sig: Take 1 capsule by mouth daily before breakfast. 1/2 hr before meal. Authorizing Provider: DUSTIN HOANG MD [facility] 03-03-2024 Miscellaneous Notes The following approved medication requests have been transmitted electronically. Requested Prescriptions Signed Prescriptions Disp Refills omeprazole (PRILOSEC) 40 mg capsule 90 capsule 1 Sig: Take 1 capsule by mouth daily before breakfast. 1/2 hr before meal. Authorizing Provider: DUSTIN HOANG MD Prescription Refill Information The patient has been identified by name and date of : Yes Caregiver verified no other encounters exist for this prescription request: Yes Caregiver confirmed with patient/requestor that no other refills are due, in the near future, with this provider at this time: Yes The last office visit in the department: 11/28/23 Does the patient have a future office visit with this provider/department: Yes Requested Prescriptions Pending Prescriptions Disp Refills omeprazole (PRILOSEC) 40 mg capsule 90 capsule 1 Sig: Take 1 capsule by mouth daily before breakfast. 1/2 hr before meal. Abraham Donovan LPN March 03, 2024 1:30 PM documented in this encounter [facility] 03-03-2024 Telephone encounter Note Prescription Refill Information The patient has been identified by name and date of : Yes Caregiver verified no other encounters exist for this prescription request: Yes Caregiver confirmed with patient/requestor that no other refills are due, in the near future, with this provider at this time: Yes The last office visit in the department: 11/28/23 Does the patient have a future office visit with this provider/department: Yes Requested Prescriptions Pending Prescriptions Disp Refills omeprazole (PRILOSEC) 40 mg capsule 90 capsule 1 Sig: Take 1 capsule by mouth daily before breakfast. 1/2 hr before meal. Abraham Donovan LPN March 03, 2024 1:30 PM [facility] 03-02-2024 Note HNO ID: [id number] Author: HCARLIE BRADLEY MA Service: ? Author Type: Jigsawyer Type: Progress Notes Filed: 03/02/2024 16:34 Note Text: Scan on 03/01/2024 9:48 PM by Sindhu Mcwilliams PA-C: X-ray Scan on 03/01/2024 9:51 PM by Sindhu Mcwilliams PA-C: X-ray Scan on 03/01/2024 10:00 PM by Sindhu Mcwilliams PA-C: X-ray Charlie Bradley MA [facility] 03-02-2024 History of Presen t illness Narrative Scan on 03/01/2024 9:48 PM by Sindhu Mcwilliams PA-C: X-ray Scan on 03/01/2024 9:51 PM by Sindhu Mcwilliams PA-C: X-ray Scan on 03/01/2024 10:00 PM by Sindhu Mcwilliams PA-C: X-ray Charlie Bradley MA documented in this encounter [facility] 02-18-2024 Telephone encounter Note Prescription Refill Information The patient has been identified by name and date of : Yes Caregiver verified no other encounters exist for this prescription request: Yes Caregiver confirmed with patient/requestor that no other refills are due, in the near future, with this provider at this time: Yes The last office visit in the department: 11/28/23 Does the patient have a future office visit with this provider/department: Yes Requested Prescriptions Pending Prescriptions Disp Refills doxazosin (CARDURA) 2 mg tablet 90 tablet 1 Sig: Take 1 tablet by mouth once daily. Abraham Donovan LPN February 18, 2024 12:17 PM [facility] 02-18-2024 Miscellaneous Notes Prescription Refill Information The patient has been identified by name and date of : Yes Caregiver verified no other encounters exist for this prescription request: Yes Caregiver confirmed with patient/requestor that no other refills are due, in the near future, with this provider at this time: Yes The last office visit in the department: 11/28/23 Does the patient have a future office visit with this provider/department: Yes Requested Prescriptions Pending Prescriptions Disp Refills doxazosin (CARDURA) 2 mg tablet 90 tablet 1 Sig: Take 1 tablet by mouth once daily. Abraham Donovan LPN February 18, 2024 12:17 PM documented in this encounter [facility] 02-18-2024 Telephone encounter Note Prescription Refill Information The patient has been identified by name and date of : Yes Caregiver verified no other encounters exist for this prescription request: Yes Caregiver confirmed with patient/requestor that no other refills are due, in the near future, with this provider at this time: Yes The last office visit in the department: 11/28/23 Does the patient have a future office visit with this provider/department: Yes 05/31/24 Requested Prescriptions Pending Prescriptions Disp Refills tolterodine ER (DETROL LA) 4 mg 24 hr capsule 90 capsule 1 Sig: Take 1 capsule by mouth once daily. Marjorie Mabry LPN February 18, 2024 11:05 AM [facility] 02-18-2024 Miscellaneous Notes Prescription Refill Information The patient has been identified by name and date of : Yes Caregiver verified no other encounters exist for this prescription request: Yes Caregiver confirmed with patient/requestor that no other refills are due, in the near future, with this provider at this time: Yes The last office visit in the department: 11/28/23 Does the patient have a future office visit with this provider/department: Yes 05/31/24 Requested Prescriptions Pending Prescriptions Disp Refills tolterodine ER (DETROL LA) 4 mg 24 hr capsule 90 capsule 1 Sig: Take 1 capsule by mouth once daily. Marjorie Mabry LPN February 18, 2024 11:05 AM documented in this encounter [facility] 01-09-2024 Telephone encounter Note Pt called and is notified of providers results. Pt voices understanding. Alma Delia Irvin RN [facility] 01-09-2024 Miscellaneous Notes Pt called and is notified of providers results. Pt voices understanding. Alma Delia Irvin RN Let patient know stress test was normal. Scan on 01/08/2024 3:33 PM by Provider, VÍCTOR Manley: Neurology Please review EMG results. Charlie Bradley MA documented in this encounter [facility] 01-09-2024 Telephone encounter Note Let patient know stress test was normal. [facility] 01-09-2024 Telephone encounter Note Scan on 01/08/2024 3:33 PM by Provider, VÍCTOR Manley: Neurology Please review EMG results. Charlie Bradley MA [facility] 12-17-2023 Telephone encounter Note Patient notified of results. Patient verbalizes understanding. Annie Zamora RN [facility] 12-17-2023 Miscellaneous Notes Patient notified of results. Patient verbalizes understanding. Annie Zamora RN Left message for patient to contact office. Charlie Bradley MA Let patient know the US of her heart was ok. documented in this encounter [facility] 12-17-2023 Telephone encounter Note Left message for patient to contact office. Charlie Bradley MA [facility] 12-16-2023 Telephone encounter Note Let patient know the US of her heart was ok. [facility] 12-16-2023 Telephone encounter Note Spoke with pt and information listed below given. Pt verbalizes understanding. Jenny Turner LPN [facility] 12-16-2023 Miscellaneous Notes Spoke with pt and information listed below given. Pt verbalizes understanding. Jenny Turner LPN Left message to return call Let patient know her walking test showed her oxygenation on room air was normal. documented in this encounter [facility] 12-16-2023 Telephone encounter Note Left message to return call [facility] 12-16-2023 Telephone encounter Note Let patient know her walking test showed her oxygenation on room air was normal. [facility] 12-16-2023 Note HNO ID: [id number] Author: BRADLEY CONNOR RRT Service: ? Author Type: Registered Resp Therapist Type: Procedures Filed: 12/16/2023 14:33 Note Text: RESPIRATORY THERAPY OXIMETRY WITH AMBULATION Oximetry with Ambulation Test for This Encounter O2 Device O2 Adapter NC O2 Flow SpO2% HR Activity Ft Walked (ft) Time (min) Avg Speed (MPH) R/A 99 53 Resting R/A 99 61 Walking, usual pace 230 3 0.87 General Information Pulse Oximetry Site Total Time Spent Walking Assistance/O2 Supply Carrier Forehead 30 Cane NAME: Bradley Connor RRT PATIENT NAME: Nidhi Núñez DATE: December 16, 2023 TIME: 2:33 PM Comment: Pt does not have a fast pace. [facility] 12-16-2023 Procedure note Associated Ord er(s): OXIMETRY WITH AMBULATION RESPIRATORY THERAPY OXIMETRY WITH AMBULATION Oximetry with Ambulation Test for This Encounter O2 Device O2 Adapter NC O2 Flow SpO2% HR Activity Ft Walked (ft) Time (min) Avg Speed (MPH) R/A 99 53 Resting R/A 99 61 Walking, usual pace 230 3 0.87 General Information Pulse Oximetry Site Total Time Spent Walking Assistance/O2 Supply Carrier Forehead 30 Cane NAME: Bradley Connor RRT PATIENT NAME: Nidhi Núñez DATE: December 16, 2023 TIME: 2:33 PM Comment: Pt does not have a fast pace. [facility] 12-16-2023 Procedure note Associated Ord er(s): OXIMETRY WITH AMBULATION RESPIRATORY THERAPY OXIMETRY WITH AMBULATION Oximetry with Ambulation Test for This Encounter O2 Device O2 Adapter NC O2 Flow SpO2% HR Activity Ft Walked (ft) Time (min) Avg Speed (MPH) R/A 99 53 Resting R/A 99 61 Walking, usual pace 230 3 0.87 General Information Pulse Oximetry Site Total Time Spent Walking Assistance/O2 Supply Carrier Forehead 30 Cane NAME: Bradley Connor RRT PATIENT NAME: Nidhi Núñez DATE: December 16, 2023 TIME: 2:33 PM Comment: Pt does not have a fast pace. documented in this encounter [facility] 12-16-2023 Note HNO ID: [id number] Author: BRADLEY CONNOR RRT Service: ? Author Type: Registered Resp Therapist Type: Progress Notes Filed: 12/16/2023 14:32 Note Text: PULM FUNCTION: Provider: Dustin Hoang MD Oximetry - Ambulation: 1 [facility] 12-16-2023 History of Presen t illness Narrative PULM FUNCTION: Provider: Dustin Hoang MD Oximetry - Ambulation: 1 documented in this encounter [facility] 12-03-2023 Telephone encounter Note Faxed order/Demo for [facility] Nuclear stress test. Referral placed. Charlie Bradley MA [facility] 12-03-2023 Miscellaneous Notes Faxed order/Demo for [facility] Nuclear stress test. Referral placed. Charlie Bradley MA documented in this encounter [facility] 11-28-2023 History of Presen t illness Narrative Chief Complaint Patient presents with: Follow Up HPI Nidhi Núñez is a 83 year old female who presents here today for 1 week follow up. Patient was seen 11/21/2023 for her 6 month follow up, during that visit she had evaluated blood pressure and MONTGOMERY. Patient is here today for follow up on Blood pressure, chest pain/SOB. Patient indicated that does become winded just walking from the living room to the kitchen. She does have some chest discomfort. Granddaughter mentioned that patient did have an episode on Friday; she had a pretty bad headache/just didn't seem her herself. She checked her BP patient cannot remember what it was but granddaughter remembered it being high. Patient checked her blood pressure last night and it was 133/72 Lower back pain, patient has a stimulator - notices pain when sitting or standing to long. Head CT was Neg, breathing test and chest x-ray were ok. Patient was to schedule a [place] Cardiac stress test and ECHO; CT of Brain, US of Carotid, Spirometry. CT, Xray and breathing test were normal. Patient with hx of HTN, HLP, GERD, elevate a1c, OAB, and those as below Past medical history, appointments, medications, allergies reviewed. Previous Medical History PAST MEDICAL HISTORY Diagnosis Date Acute gastritis without mention of hemorrhage 03/30/2009 Advance directive discussed with patient 12/19/2021 Discussed 12/2021 Age-related cataract 08/07/2018 Arthritis of both knees 02/05/2018 Celiac disease 11/21/2023 Chronic pain of both knees 02/05/2018 Chronic pain syndrome 12/19/2021 Seeing pain management Diverticulosis of colon (without mention of hemorrhage) Elevated hemoglobin A1c 08/09/2018 Essential hypertension 02/05/2015 Ex-smoker 02/01/2009 Started at age 16 up to 1 PPD, quit 2014 Family history of malignant neoplasm of gastrointestinal tract GERD (gastroesophageal reflux disease) 02/05/2015 EGD (negative Browning's) Hypoglycemia, unspecified Hypoglycemia Irritable bowel disease 02/01/[address] 04/17/2020 DPA: Meghan (daughter) Low serum vitamin B12 12/23/2021 Macular degeneration 08/07/2018 Left Mixed hyperlipidemia 10/14/2006 Osteoarth NOS-other site 10/09/2006 Overactive bladder 08/07/2018 PAC (premature atrial contraction) 01/08/2023 Per vannessa 12/2022 Stage 3a chronic kidney disease (HCC) 11/21/2022 Previous Surgical History PAST SURGICAL HISTORY Procedure Laterality Date *STRESS TEST PC 05/27/2017 normal 2D ECHO (EXEP) 05/27/2017 EF=70%, mild LVH, no significant valvue issues ANTERIOR COLPORRAPHY RPR CYSTOCELE W/CYSTO Cystocele repair, x2 CATARACT EXTRACTION HX Left 2011 COLONOSCOPY FLX DX W/COLLJ SPEC WHEN PFRMD 03/30/09 EGD TRANSORAL BIOPSY SINGLE/MULTIPLE 03/30/09 FECAL OCCULT BLOOD TEST 05/12/2017 negative TOTAL ABDOMINAL HYSTERECT W/WO RMVL TUBE OVARY 1970's Hysterectomy, RAY XCAPSL CTRC RMVL INSJ IO LENS PROSTH W/O ECP Right 06/2019 Cataract Extraction with PC IOL Family History FAMILY HISTORY Problem Relation Age of Onset Diabetes Mother Emphysema Mother Cancer Mother skin Colon Cancer Father liver cancer Diabetes Father Patient Allergies ALLERGIES Allergen Reactions Adhesive Tape (Jeannette* Rash Codeine GI Upset Hctz [Thiazides] Other: See Comments Made dizzy Current Medications Current Outpatient Medications on File Prior to Visit Medication Sig metoprolol succinate ER (TOPROL XL) 100 mg Take 1 tablet by mouth once daily. rosuvastatin (CRESTOR) 20 mg tablet Take 1 tablet by mouth daily at bedtime. lisinopril (ZESTRIL) 40 mg tablet Take 1 tablet by mouth two times a day. tolterodine ER (DETROL LA) 4 mg 24 hr capsule Take 1 capsule by mouth once daily. omeprazole (PRILOSEC) 40 mg capsule Take 1 capsule by mouth daily before breakfast. 1/2 hr before meal. doxazosin (CARDURA) 2 mg tablet Take 1 tablet by mouth once daily. CREON 36,000-114,000- 180,000 unit delayed release capsule vit C/E/Zn/coppr/lutein/zeaxan (PRESERVISION AREDS-2 ORAL) Take by mouth. cyanocobalamin (VITAMIN B-12) 500 mcg tablet Take 1 tablet by mouth once daily. nystatin (MYCOSTATIN) powder Apply 1 application to affected area twice daily. diclofenac (VOLTAREN) 1 % topical gel APPLY 2 GRAMS TO AFFECTED AREA FOUR TIMES DAILY. vit A/vit C/vit E/zinc/copper (OCUVITE PRESERVISION ORAL) Take by mouth twice daily. No current facility-administered medications on file prior to visit. Social History Social History Tobacco Use Smoking status: Former Packs/day: 1.00 Years: 55.00 Additional pack years: 0.00 Total pack years: 55.00 Types: Cigarettes Quit date: 08/13/2014 Years since quittin.2 Smokeless tobacco: Never Vaping Use Vaping Use: Never used Substance Use Topics Alcohol use: No Drug use: No Review of Symptoms REVIEW OF SYSTEMS GENERAL: No weight loss, malaise or fevers RESPIRATORY: Negative for hemoptysis. Hs the occasional cough. Still getting wheezing, COPD, dyspnea or shortness of breath CARDIOVASCULAR: Negative for leg swelling. Feels like HR slows down at times. Still getting the chest pain/pressure. NEURO: No history of headaches (with certain lights), syncope, paralysis, seizures or tremors EXAM: BP 158/92 (BP Site: Right Arm, BP Position: Sitting, BP Cuff Size: Regular Adult) Pulse (!) 49 Resp 16 Wt 72.6 kg (160 lb) SpO2 94% BMI 30.05 kg/m BP 142/80 Pulse (!) 49 Resp 16 Wt 72.6 kg (160 lb) SpO2 94% BMI 30.05 kg/m General Appearance: Well appearing, alert, in no acute distress, well-hydrated, well nourished.. Neck: Supple, no adenopathy; thyroid symmetric, normal size, no bruits. Lungs: Lungs clear to auscultation. No wheezing, rhonchi, rales.. Heart: RRR without murmur, gallop, or rubs. No ectopy. Extremities: No deformities, edema, skin discoloration, clubbing or cyanosis. Good capillary refill. . Musculoskeletal: leg strength on the right is 3/5 and on left is 4-/5.. Health Maintenance List DTaP,Tdap,Td Vaccine(1 - Tdap) Never done RSV Vaccine(1 - 1-dose 60+ series) Never done Shingrix Vaccine(2 of 2) due on 04/25/2022 Behavioral Health Screening Never done Covid-19 Vaccine(2022- season) due on 09/21/2023 Diabetes Screening due on 11/20/2026 Bone Density Screening Completed Influenza Vaccine Completed Advance Directive Discussion Completed Pneumococcal Vaccine: 65+ Completed Data reviewed A/P ASSESSMENT/PLAN: 1. Essential hypertension - ICD9: 401.9, ICD10: I10 (primary diagnosis) - Controlled - Continue current medications - Recommend home blood pressure monitoring, to bring results to next visit - Encouraged sodium restriction, DASH or Mediterranean diet - Recommend regular aerobic exercise 2. MONTGOMERY (dyspnea on exertion) - ICD9: 786.09, ICD10: R06.09 Check - OXIMETRY WITH AMBULATION 3. Chest pain, unspecified type - ICD9: 786.50, ICD10: R07.9 - 2D echo needs set up. - will need to see if stress test can be done at [facility] since the one through us is not till January. 4. Dizziness - ICD9: 780.4, ICD10: R42 - awaiting carotid US. F/u 6 months extensive exam Forms for [facility] completed. I spent a total of 40 minutes on the date of the service which included preparing to see the patient, [id number] patient care, completing clinical documentation, performing a medically appropriate examination, counseling and educating the patient/family/caregiver and ordering medications, tests, or procedures. Dustin Hoang MD documented in this encounter [facility] 11-28-2023 Note HNO ID: [id number] Author: DUSTIN HOANG MD Service: ? Author Type: Physician Type: Progress Notes Filed: 12/01/2023 10:03 Note Text: Chief Complaint Patient presents with: Follow Up HPI Nidhi Núñez is a 83 year old female who presents here today for 1 week follow up. Patient was seen 11/21/2023 for her 6 month follow up, during that visit she had evaluated blood pressure and MONTGOMERY. Patient is here today for follow up on Blood pressure, chest pain/SOB. Patient indicated that does become winded just walking from the living room to the kitchen. She does have some chest discomfort. Granddaughter mentioned that patient did have an episode on Friday; she had a pretty bad headache/just didn't seem her herself. She checked her BP patient cannot remember what it was but granddaughter remembered it being high. Patient checked her blood pressure last night and it was 133/72 Lower back pain, patient has a stimulator - notices pain when sitting or standing to long. Head CT was Neg, breathing test and chest x-ray were ok. Patient was to schedule a [place] Cardiac stress test and ECHO; CT of Brain, US of Carotid, Spirometry. CT, Xray and breathing test were normal. Patient with hx of HTN, HLP, GERD, elevate a1c, OAB, and those as below Past medical history, appointments, medications, allergies reviewed. Previous Medical History PAST MEDICAL HISTORY Diagnosis Date Acute gastritis without mention of hemorrhage 03/30/2009 Advance directive discussed with patient 12/19/2021 Discussed 12/2021 Age-related cataract 08/07/2018 Arthritis of both knees 02/05/2018 Celiac disease 11/21/2023 Chronic pain of both knees 02/05/2018 Chronic pain syndrome 12/19/2021 Seeing pain management Diverticulosis of colon (without mention of hemorrhage) Elevated hemoglobin A1c 08/09/2018 Essential hypertension 02/05/2015 Ex-smoker 02/01/2009 Started at age 16 up to 1 PPD, quit 2014 Family history of malignant neoplasm of gastrointestinal tract GERD (gastroesophageal reflux disease) 02/05/2015 EGD (negative Browning's) Hypoglycemia, unspecified Hypoglycemia Irritable bowel disease 02/01/[address] 04/17/2020 DPA: Meghan (daughter) Low serum vitamin B12 12/23/2021 Macular degeneration 08/07/2018 Left Mixed hyperlipidemia 10/14/2006 Osteoarth NOS-other site 10/09/2006 Overactive bladder 08/07/2018 PAC (premature atrial contraction) 01/08/2023 Per halter 12/2022 Stage 3a chronic kidney disease (HCC) 11/21/2022 Previous Surgical History PAST SURGICAL HISTORY Procedure Laterality Date *STRESS TEST PC 05/27/2017 normal 2D ECHO (EXEP) 05/27/2017 EF=70%, mild LVH, no significant valvue issues ANTERIOR COLPORRAPHY RPR CYSTOCELE W/CYSTO Cystocele repair, x2 CATARACT EXTRACTION HX Left 2011 COLONOSCOPY FLX DX W/COLLJ SPEC WHEN PFRMD 03/30/09 EGD TRANSORAL BIOPSY SINGLE/MULTIPLE 03/30/09 FECAL OCCULT BLOOD TEST 05/12/2017 negative TOTAL ABDOMINAL HYSTERECT W/WO RMVL TUBE OVARY 1970's Hysterectomy, RAY XCAPSL CTRC RMVL INSJ IO LENS PROSTH W/O ECP Right 06/2019 Cataract Extraction with PC IOL Family History FAMILY HISTORY Problem Relation Age of Onset Diabetes Mother Emphysema Mother Cancer Mother skin Colon Cancer Father liver cancer Diabetes Father Patient Allergies ALLERGIES Allergen Reactions Adhesive Tape (Jeannette* Rash Codeine GI Upset Hctz [Thiazides] Other: See Comments Made dizzy Current Medications Current Outpatient Medications on File Prior to Visit Medication Sig metoprolol succinate ER (TOPROL XL) 100 mg Take 1 tablet by mouth once daily. rosuvastatin (CRESTOR) 20 mg tablet Take 1 tablet by mouth daily at bedtime. lisinopril (ZESTRIL) 40 mg tablet Take 1 tablet by mouth two times a day. tolterodine ER (DETROL LA) 4 mg 24 hr capsule Take 1 capsule by mouth once daily. omeprazole (PRILOSEC) 40 mg capsule Take 1 capsule by mouth daily before breakfast. 1/2 hr before meal. doxazosin (CARDURA) 2 mg tablet Take 1 tablet by mouth once daily. CREON 36,000-114,000- 180,000 unit delayed release capsule vit C/E/Zn/coppr/lutein/zeaxan (PRESERVISION AREDS-2 ORAL) Take by mouth. cyanocobalamin (VITAMIN B-12) 500 mcg tablet Take 1 tablet by mouth once daily. nystatin (MYCOSTATIN) powder Apply 1 application to affected area twice daily. diclofenac (VOLTAREN) 1 % topical gel APPLY 2 GRAMS TO AFFECTED AREA FOUR TIMES DAILY. vit A/vit C/vit E/zinc/copper (OCUVITE PRESERVISION ORAL) Take by mouth twice daily. No current facility-administered medications on file prior to visit. Social History Social History Tobacco Use Smoking status: Former Packs/day: 1.00 Years: 55.00 Additional pack years: 0.00 Total pack years: 55.00 Types: Cigarettes Quit date: 08/13/2014 Years since quittin.2 Smokeless tobacco: Never Vaping Use Vaping Use: Never used Substance Use Topics Alcohol use: No Drug use: No (more content not included)... [facility] 11-25-2023 Telephone encounter Note Pt notified. Brunilda Kinsey MA [facility] 11-25-2023 Miscellaneous Notes Pt notified. Brunilda Kinsey MA Let patient know her breathing test was ok and the chest x-ray was ok. documented in this encounter [facility] 11-25-2023 Telephone encounter Note Let patient know her breathing test was ok and the chest x-ray was ok. [facility] 11-25-2023 Telephone encounter Note Patient returns call and reports no burning/pain, urgency, or fever. Reports back pain per her usual and frequency but not any different than her usual. Takes [facility] for this. Dayna Osorio RN [facility] 11-25-2023 Miscellaneous Notes Patient returns call and reports no burning/pain, urgency, or fever. Reports back pain per her usual and frequency but not any different than her usual. Takes [facility] for this. Dayna Osorio RN Call placed to patient and message left to call back to triage nurse. Please find out if patient is having urinary symptoms. Dayna Osorio RN Please find out if patient is having urinary symptoms. documented in this encounter [facility] 11-25-2023 Telephone encounter Note Call placed to patient and message left to call back to triage nurse. Please find out if patient is having urinary symptoms. Dayna Osorio RN [facility] 11-25-2023 Telephone encounter Note Please find out if patient is having urinary symptoms. [facility] Work Phone: 11-24-2023 Telephone encounter Note Pt's granddaughter Meghan calls along with pt for results. Notified of results. Maritza Pennington LPN [facility] 11-24-2023 Miscellaneous Notes Pt's granddaughter Meghan calls along with pt for results. Notified of results. Maritza Pennington LPN Left message for pt to contact office. Abraham Donovan LPN Let patient know that her ct brain was normal. documented in this encounter [facility] 11-24-2023 Telephone encounter Note Left message for pt to contact office. Abraham Donovan LPN [facility] 11-24-2023 Note HNO ID: [id number] Author: SOMMER PRIETO RPFT Service: ? Author Type: Respiratory Therapist Type: Progress Notes Filed: 11/24/2023 13:19 Note Text: PULM FUNCTION: Provider: Dustin Hoang MD Assisting Tech: Sommer Prieto RPFT Spirometry w/BD: 1 [facility] 11-24-2023 History of Presen t illness Narrative PULM FUNCTION: Provider: Dustin Hoang MD Assisting Tech: Sommer Prieto RPFT Spirometry w/BD: 1 documented in this encounter [facility] 11-24-2023 Telephone encounter Note Let patient know that her ct brain was normal. [facility] 11-24-2023 History of Presen t illness Narrative Radiology Service Progress Note PATIENT NAME: Nidhi Núñez DATE OF SERVICE: November 24, 2023 TIME: 4:14 PM PATIENT IDENTITY VERIFICATION COMPLETED USING TWO (2) IDENTIFIERS: Name and Date of confirmed by patient verbally. FALL SCREENING: Has the patient had 2 falls in the last year or 1 fall with injury or currently using an Ambulatory Assistive Device (Walker, Cane, Wheelchair, Crutches, etc.)? No PATIENT GENDER DATA: Female. status: : No status: NO. PATIENT RELEVANT IMPLANT DATA REVIEWED: Yes PATIENT PRESENTS WITH AN IMPLANTABLE OR ATTACHED WAREHOUSE UNLOADER: No RADIOLOGY DEPARTMENT: CT; Exam(s) Completed: Brain PERIPHERAL IV DATA: Not applicable SIGNED BY: RT Alyssa(Marilyn) November 24, 2023 4:14 PM documented in this encounter [facility] 11-24-2023 Note HNO ID: [id number] Author: JOYCE CARR RT(R) Service: ? Author Type: Software Application Tester Type: Progress Notes Filed: 11/24/2023 16:15 Note Text: Radiology Service Progress Note PATIENT NAME: Nidhi Núñez DATE OF SERVICE: November 24, 2023 TIME: 4:14 PM PATIENT IDENTITY VERIFICATION COMPLETED USING TWO (2) IDENTIFIERS: Name and Date of confirmed by patient verbally. FALL SCREENING: Has the patient had 2 falls in the last year or 1 fall with injury or currently using an Ambulatory Assistive Device (Walker, Cane, Wheelchair, Crutches, etc.)? No PATIENT GENDER DATA: Female. status: : No status: NO. PATIENT RELEVANT IMPLANT DATA REVIEWED: Yes PATIENT PRESENTS WITH AN IMPLANTABLE OR ATTACHED WAREHOUSE UNLOADER: No RADIOLOGY DEPARTMENT: CT; Exam(s) Completed: Brain PERIPHERAL IV DATA: Not applicable SIGNED BY: RT Alyssa(Marilyn) November 24, 2023 4:14 PM [facility] 11-21-2023 History of Presen t illness Narrative Radiology Service Progress Note PATIENT NAME: Nidhi Núñez DATE OF SERVICE: November 21, 2023 TIME: 1:14 PM PATIENT IDENTITY VERIFICATION COMPLETED USING TWO (2) IDENTIFIERS: Name and Date of confirmed by patient verbally. FALL SCREENING: Has the patient had 2 falls in the last year or 1 fall with injury or currently using an Ambulatory Assistive Device (Walker, Cane, Wheelchair, Crutches, etc.)? Yes, Patient High Risk for Falls What interventions were put in place to prevent falls during this visit? Offered Assistance with Transfers/Clothing PATIENT GENDER DATA: Female. status: : No status: NO. PATIENT RELEVANT IMPLANT DATA REVIEWED: Not Applicable PATIENT PRESENTS WITH AN IMPLANTABLE OR ATTACHED WAREHOUSE UNLOADER: No RADIOLOGY DEPARTMENT: General X-ray: Exam(s) Completed: Chest X-Ray PERIPHERAL IV DATA: Not applicable SIGNED BY: RT Patrice(R) November 21, 2023 1:14 PM documented in this encounter [facility] 11-21-2023 Note HNO ID: [id number] Author: AKIL MORALES RT(R) Service: Radiology Author Type: Technologist Type: Progress Notes Filed: 11/21/2023 13:21 Note Text: Radiology Service Progress Note PATIENT NAME: Nidhi Núñez DATE OF SERVICE: November 21, 2023 TIME: 1:14 PM PATIENT IDENTITY VERIFICATION COMPLETED USING TWO (2) IDENTIFIERS: Name and Date of confirmed by patient verbally. FALL SCREENING: Has the patient had 2 falls in the last year or 1 fall with injury or currently using an Ambulatory Assistive Device (Walker, Cane, Wheelchair, Crutches, etc.)? Yes, Patient High Risk for Falls What interventions were put in place to prevent falls during this visit? Offered Assistance with Transfers/Clothing PATIENT GENDER DATA: Female. status: : No status: NO. PATIENT RELEVANT IMPLANT DATA REVIEWED: Not Applicable PATIENT PRESENTS WITH AN IMPLANTABLE OR ATTACHED WAREHOUSE UNLOADER: No RADIOLOGY DEPARTMENT: General X-ray: Exam(s) Completed: Chest X-Ray PERIPHERAL IV DATA: Not applicable SIGNED BY: RT Patrice(R) November 21, 2023 1:14 PM [facility] 11-21-2023 Instructions Dustin Hoang MD - 11/21/2023 11:26 AM EDT Please bring in copies of your power of claims attorney for health care and living will. documented in this encounter [facility] 11-21-2023 Note HNO ID: [id number] Author: DUSTIN HOANG MD Service: ? Author Type: Physician Type: Progress Notes Filed: 11/24/2023 17:03 Note Text: CT Chief Complaint Patient presents with: Follow Up HPI Nidhi Núñez is a 83 year old female who presents here today for 6 month follow up. PasPatient with hx of HTN, HLP, GERD, elevate a1c, OAB, and those as below Past medical history, appointments, medications, allergies reviewed. Previous Medical History PAST MEDICAL HISTORY Diagnosis Date Acute gastritis without mention of hemorrhage 03/30/2009 Advance directive discussed with patient 12/19/2021 Discussed 12/2021 Age-related cataract 08/07/2018 Arthritis of both knees 02/05/2018 Chronic pain of both knees 02/05/2018 Chronic pain syndrome 12/19/2021 Seeing pain management Diverticulosis of colon (without mention of hemorrhage) Elevated hemoglobin A1c 08/09/2018 Essential hypertension 02/05/2015 Ex-smoker 02/01/2009 Started at age 16 up to 1 PPD, quit 2014 Family history of malignant neoplasm of gastrointestinal tract GERD (gastroesophageal reflux disease) 02/05/2015 EGD (negative Browning's) Hypoglycemia, unspecified Hypoglycemia Irritable bowel disease 02/01/[address] 04/17/2020 DPA: Meghan (daughter) Low serum vitamin B12 12/23/2021 Macular degeneration 08/07/2018 Left Mixed hyperlipidemia 10/14/2006 Osteoarth NOS-other site 10/09/2006 Overactive bladder 08/07/2018 PAC (premature atrial contraction) 01/08/2023 Per vannessa 12/2022 Stage 3a chronic kidney disease (HCC) 11/21/2022 Previous Surgical History PAST SURGICAL HISTORY Procedure Laterality Date *STRESS TEST PC 05/27/2017 normal 2D ECHO (EXEP) 05/27/2017 EF=70%, mild LVH, no significant valvue issues ANTERIOR COLPORRAPHY RPR CYSTOCELE W/CYSTO Cystocele repair, x2 CATARACT EXTRACTION HX Left 2011 COLONOSCOPY FLX DX W/COLLJ SPEC WHEN PFRMD 03/30/09 EGD TRANSORAL BIOPSY SINGLE/MULTIPLE 03/30/09 FECAL OCCULT BLOOD TEST 05/12/2017 negative TOTAL ABDOMINAL HYSTERECT W/WO RMVL TUBE OVARY 1970's Hysterectomy, RAY XCAPSL CTRC RMVL INSJ IO LENS PROSTH W/O ECP Right 06/2019 Cataract Extraction with PC IOL Family History FAMILY HISTORY Problem Relation Age of Onset Diabetes Mother Emphysema Mother Cancer Mother skin Colon Cancer Father liver cancer Diabetes Father Patient Allergies ALLERGIES Allergen Reactions Adhesive Tape (Jeannette* Rash Codeine GI Upset Hctz [Thiazides] Other: See Comments Made dizzy Current Medications Current Outpatient Medications on File Prior to Visit Medication Sig lisinopril (ZESTRIL) 40 mg tablet Take 1 tablet by mouth two times a day. tolterodine ER (DETROL LA) 4 mg 24 hr capsule Take 1 capsule by mouth once daily. omeprazole (PRILOSEC) 40 mg capsule Take 1 capsule by mouth daily before breakfast. 1/2 hr before meal. doxazosin (CARDURA) 2 mg tablet Take 1 tablet by mouth once daily. rosuvastatin (CRESTOR) 20 mg tablet Take 1 tablet by mouth daily at bedtime. CREON 36,000-114,000- 180,000 unit delayed release capsule vit C/E/Zn/coppr/lutein/zeaxan (PRESERVISION AREDS-2 ORAL) Take by mouth. metoprolol succinate ER (TOPROL XL) 100 mg Take 1 tablet by mouth once daily. cyanocobalamin (VITAMIN B-12) 500 mcg tablet Take 1 tablet by mouth once daily. nystatin (MYCOSTATIN) powder Apply 1 application to affected area twice daily. diclofenac (VOLTAREN) 1 % topical gel APPLY 2 GRAMS TO AFFECTED AREA FOUR TIMES DAILY. vit A/vit C/vit E/zinc/copper (OCUVITE PRESERVISION ORAL) Take by mouth twice daily. No current facility-administered medications on file prior to visit. Social History Social History Tobacco Use Smoking status: Former Packs/day: 1.00 Years: 55.00 Additional pack years: 0.00 Total pack years: 55.00 Types: Cigarettes Quit date: 08/13/2014 Years since quittin.2 Smokeless tobacco: Never Vaping Use Vaping Use: Never used Substance Use Topics Alcohol use: No Drug use: No Review of Symptoms REVIEW OF SYSTEMS GENERAL: No significant weight loss, malaise or fevers NECK: Negative for lumps, goiter, pain and significant neck swelling RESPIRATORY: Negative for cough, hemoptysis, wheezing, COPD. Patient has been noting MONTGOMERY CARDIOVASCULAR: Negative for leg swelling, hypertension, CHF or palpitations. With walking will get [place]TG[place], some chest pressure and tightness in her neck. No diaphoresis. Some nausea. GI: No vomiting, or significant diarrhea and No heartburn or reflux symptoms. ; the Detrol has helped her OAB. No dysuria or blood. ENDOCRINE: Negative for cold or heat intolerance, polyuria, polydipsia and goiter NEURO: No history of syncope, paralysis, seizures or tremors. Has been having ataxia and increased Headaches for the past several months. Some dizziness. EXAM: BP 134/96 (BP Site: Right Arm, BP Position: Sitting, BP Cuff Size: Regular Adult) Pulse 60 Resp 18 (more content not included)... [facility] 11-21-2023 History of Presen t illness Narrative CT Chief Complaint Patient presents with: Follow Up HPI Nidhi Núñez is a 83 year old female who presents here today for 6 month follow up. PasPatient with hx of HTN, HLP, GERD, elevate a1c, OAB, and those as below Past medical history, appointments, medications, allergies reviewed. Previous Medical History PAST MEDICAL HISTORY Diagnosis Date Acute gastritis without mention of hemorrhage 03/30/2009 Advance directive discussed with patient 12/19/2021 Discussed 12/2021 Age-related cataract 08/07/2018 Arthritis of both knees 02/05/2018 Chronic pain of both knees 02/05/2018 Chronic pain syndrome 12/19/2021 Seeing pain management Diverticulosis of colon (without mention of hemorrhage) Elevated hemoglobin A1c 08/09/2018 Essential hypertension 02/05/2015 Ex-smoker 02/01/2009 Started at age 16 up to 1 PPD, quit 2014 Family history of malignant neoplasm of gastrointestinal tract GERD (gastroesophageal reflux disease) 02/05/2015 EGD (negative Browning's) Hypoglycemia, unspecified Hypoglycemia Irritable bowel disease 02/01/[address] 04/17/2020 DPA: Meghan (daughter) Low serum vitamin B12 12/23/2021 Macular degeneration 08/07/2018 Left Mixed hyperlipidemia 10/14/2006 Osteoarth NOS-other site 10/09/2006 Overactive bladder 08/07/2018 PAC (premature atrial contraction) 01/08/2023 Per vannessa 12/2022 Stage 3a chronic kidney disease (HCC) 11/21/2022 Previous Surgical History PAST SURGICAL HISTORY Procedure Laterality Date *STRESS TEST PC 05/27/2017 normal 2D ECHO (EXEP) 05/27/2017 EF=70%, mild LVH, no significant valvue issues ANTERIOR COLPORRAPHY RPR CYSTOCELE W/CYSTO Cystocele repair, x2 CATARACT EXTRACTION HX Left 2011 COLONOSCOPY FLX DX W/COLLJ SPEC WHEN PFRMD 03/30/09 EGD TRANSORAL BIOPSY SINGLE/MULTIPLE 03/30/09 FECAL OCCULT BLOOD TEST 05/12/2017 negative TOTAL ABDOMINAL HYSTERECT W/WO RMVL TUBE OVARY 1969's Hysterectomy, RAY XCAPSL CTRC RMVL INSJ IO LENS PROSTH W/O ECP Right 06/2019 Cataract Extraction with PC IOL Family History FAMILY HISTORY Problem Relation Age of Onset Diabetes Mother Emphysema Mother Cancer Mother skin Colon Cancer Father liver cancer Diabetes Father Patient Allergies ALLERGIES Allergen Reactions Adhesive Tape (Jeannette* Rash Codeine GI Upset Hctz [Thiazides] Other: See Comments Made dizzy Current Medications Current Outpatient Medications on File Prior to Visit Medication Sig lisinopril (ZESTRIL) 40 mg tablet Take 1 tablet by mouth two times a day. tolterodine ER (DETROL LA) 4 mg 24 hr capsule Take 1 capsule by mouth once daily. omeprazole (PRILOSEC) 40 mg capsule Take 1 capsule by mouth daily before breakfast. 1/2 hr before meal. doxazosin (CARDURA) 2 mg tablet Take 1 tablet by mouth once daily. rosuvastatin (CRESTOR) 20 mg tablet Take 1 tablet by mouth daily at bedtime. CREON 36,000-114,000- 180,000 unit delayed release capsule vit C/E/Zn/coppr/lutein/zeaxan (PRESERVISION AREDS-2 ORAL) Take by mouth. metoprolol succinate ER (TOPROL XL) 100 mg Take 1 tablet by mouth once daily. cyanocobalamin (VITAMIN B-12) 500 mcg tablet Take 1 tablet by mouth once daily. nystatin (MYCOSTATIN) powder Apply 1 application to affected area twice daily. diclofenac (VOLTAREN) 1 % topical gel APPLY 2 GRAMS TO AFFECTED AREA FOUR TIMES DAILY. vit A/vit C/vit E/zinc/copper (OCUVITE PRESERVISION ORAL) Take by mouth twice daily. No current facility-administered medications on file prior to visit. Social History Social History Tobacco Use Smoking status: Former Packs/day: 1.00 Years: 55.00 Additional pack years: 0.00 Total pack years: 55.00 Types: Cigarettes Quit date: 08/13/2014 Years since quittin.2 Smokeless tobacco: Never Vaping Use Vaping Use: Never used Substance Use Topics Alcohol use: No Drug use: No Review of Symptoms REVIEW OF SYSTEMS GENERAL: No significant weight loss, malaise or fevers NECK: Negative for lumps, goiter, pain and significant neck swelling RESPIRATORY: Negative for cough, hemoptysis, wheezing, COPD. Patient has been noting MONTGOMERY CARDIOVASCULAR: Negative for leg swelling, hypertension, CHF or palpitations. With walking will get [place], some chest pressure and tightness in her neck. No diaphoresis. Some nausea. GI: No vomiting, or significant diarrhea and No heartburn or reflux symptoms. ; the Detrol has helped her OAB. No dysuria or blood. ENDOCRINE: Negative for cold or heat intolerance, polyuria, polydipsia and goiter NEURO: No history of syncope, paralysis, seizures or tremors. Has been having ataxia and increased Headaches for the past several months. Some dizziness. EXAM: BP 134/96 (BP Site: Right Arm, BP Position: Sitting, BP Cuff Size: Regular Adult) Pulse 60 Resp 18 Wt 72.1 kg (159 lb) BMI 28.17 kg/m BP 186/94 Pulse 60 Resp 18 Wt 72.1 kg (159 lb) BMI 28.17 kg/m BP 162/92 Pulse 60 Resp 18 Wt 72.1 kg (159 lb) BMI 28.17 kg/m Last 15 Encounter BP Readings: Date: BP: 11/21/2023 162/92 05/22/2023 124/76 04/21/2023 124/78 11/20/2022 128/86 09/19/2022 134/82 08/15/2022 158/96 07/25/2022 160/92 02/26/2022 127/76 02/13/2022 197/85[BP Anil average[ 01/14/2022 158/89[BP Anil average[ 01/09/2022 159/86[BP Anil average[ 12/19/2021 152/77[true BP average[ 10/30/2021 132/80 06/19/2021 162/96 11/08/2020 164/100 Last 5 Encounter Wt Readings: Date: Wt: 11/21/2023 72.1 kg (159 lb) 05/22/2023 72.1 kg (159 lb) 04/21/2023 71.8 kg (158 lb 6.4 oz) 11/20/2022 75.8 kg (167 lb) 09/19/2022 75.3 kg (166 lb) General Appearance: Well appearing, alert, in no acute distress, well-hydrated, well nourished.. Eyes: Anicteric sclera. Pupils are equally round and reactive to light. Extraocular movements are intact. . Ears: External ears, TM's normal, canals clear. Nose/Sinuses: Nares normal, septum midline, mucosa normal, no drainage or sinus tenderness. Oropharynx: Lips, mucosa, and tongue normal, teeth and gums normal, oropharynx normal. Neck: Supple, no adenopathy; thyroid symmetric, normal size, no bruits. Lungs: Lungs clear to auscultation. No wheezing, rhonchi, rales.. Heart: RRR without murmur, gallop, or rubs. No ectopy. Abdomen: Normal abdominal exam, Abdomen soft, non-tender. Bowel sounds normal. No masses, organomegaly. Extremities: No deformities, edema, skin discoloration, Good capillary refill. . Peripheral Pulses: Normal. Neurologic: Gait normal. Sensation to light touch and crainal nerves 2-12 intact.. Health Maintenance List DTaP,Tdap,Td Vaccine(1 - Tdap) Never done RSV Vaccine(1 - 1-dose 60+ series) Never done Advance Directive Discussion due on 06/09/2023 Behavioral Health Screening Never done Covid-19 Vaccine( - 2022- season) due on 09/21/2023 Shingrix Vaccine(2 of 2) due on 11/21/2023 Diabetes Screening due on 05/22/2026 Bone Density Screening Completed Influenza Vaccine Completed Pneumococcal Vaccine: 65+ Completed Data reviewed In Office EKG: showed Sinus Farhat with T wave inversion in leads 1, V1, V2, V3, V, V5, V6 this is unchanged compared to EKG from 08/15/2022. Latest Ref Rng 05/22/2023 WBC 3.70 - 11.00 k/uL 5.91 RBC 3.90 - 5.20 m/uL 4.28 Hemoglobin 11.5 - 15.5 g/dL 12.3 Hematocrit 36.0 - 46.0 % 38.5 MCV 80.0 - 100.0 fL 90.0 MCH 26.0 - 34.0 pg 28.7 MCHC 30.5 - 36.0 g/dL 31.9 RDW-CV 11.5 - 15.0 % 14.0 Platelet Count 150 - 400 k/uL 195 MPV 9.0 - 12.7 fL 10.9 Neut% % 60.7 Abs Neut (ANC) 1.45 - 7.50 k/uL 3.59 Lymph% % 24.5 Abs Lymph 1.00 - 4.00 k/uL 1.45 [place]% % 10.5 Abs [place] <0.87 k/uL 0.62 Eosin% % 3.6 Abs Eosin <0.46 k/uL 0.21 Baso% % 0.5 Abs Baso <0.11 k/uL 0.03 Immature Gran % % 0.2 IMMATURE GRANS (ABS) <0.10 k/uL <0.03 NRBC /100 WBC 0.0 Absolute nRBC <0.01 k/uL <0.01 DTYPE Auto Color Yellow Yellow Clarity Clear Clear Glucose, Urine Negative Negative Bilirubin, Urine Negative Negative Ketones, Urine Negative Negative Specific [place], Ur 1.005 - 1.030 1.012 Hemoglobin/Blood,Ur Negative Negative pH, Urine <8.5 6.5 Protein, Urine Negative Negative Urobilinogen 0.2-1.0 EU/dL 1.0 EU/dL Nitrites Negative Negative Leukest Negative 2+ ! WBC, Urine 0-5 /HPF 11-20 /HPF ! RBC, Urine 0-2 /HPF 0-2 /HPF Bacteria Negative /HPF Negative Epithelial Cells /HPF Moderate Hyaline Cast 0 /LPF 1-3 /LPF ! Protein, Total 6.3 - 8.0 g/dL 6.9 Albumin 3.9 - 4.9 g/dL 4.3 Calcium 8.5 - 10.2 mg/dL 10.1 Bilirubin, Total 0.2 - 1.3 mg/dL 0.5 Alkaline Phosphatase 34 - 123 U/L 44 AST 13 - 35 U/L 20 ALT 7 - 38 U/L 10 Glucose 74 - 99 mg/dL 94 BUN 7 - 21 mg/dL 20 Creatinine 0.58 - 0.96 mg/dL 1.01 (H) Sodium 136 - 144 mmol/L 139 Potassium 3.7 - 5.1 mmol/L 5.0 Chloride 97 - 105 mmol/L 104 CO2 22 - 30 mmol/L 26 Anion Gap 9 - 18 mmol/L 9 eGFR >=60 mL/min/1.73m 55 (L) Total Cholesterol, Nonfasting <200 mg/dL 135 Triglycerides, Nonfasting <150 mg/dL 182 (H) HDL Cholesterol, Nonfasting >39 mg/dL 41 LDL Cholesterol, Nonfasting <100 mg/dL 58 Non HDL Cholesterol, Nonfasting <130 mg/dL 94 VLDL Cholesterol, Nonfasting <30 mg/dL 36 (H) Total Chol/HDL Ratio, Nonfasting <5.10 mg/dL 3.29 LDL/HDL Ratio, Nonfasting <2.54 mg/dL 1.41 Hemoglobin A1C 4.3 - 5.6 % 5.4 Estimated Average Glucose mg/dL 108 Vitamin B12 232 - 1,245 pg/mL 494 Magnesium 1.7 - 2.3 mg/dL 1.9 A/P ASSESSMENT/PLAN: 1. Essential hypertension - ICD9: 401.9, ICD10: I10 (primary diagnosis) - Uncontrolled - Continue current medications - Recommend home blood pressure monitoring, to bring results to next visit - Encouraged sodium restriction, DASH or Mediterranean diet - Recommend regular aerobic exercise - will see back in a week to recheck - METOPROLOL SUCCINATE ER 100 MG TABLET,EXTENDED RELEASE 24 HR Check - NM CARDIAC PERF STRESS/PHARM - REGADENOSON 0.4 MG/5 ML INTRAVENOUS SYRINGE - AMINOPHYLLINE 250 MG/10 ML INTRAVENOUS SOLUTION - METOPROLOL TARTRATE 5 MG/5 ML INTRAVENOUS SOLUTION 2. Mixed hyperlipidemia - ICD9: 272.2, ICD10: E78.2 - await labs - Continue current medications - Counseled on healthy diet and regular exercise - ROSUVASTATIN 20 MG TABLET 3. Elevated hemoglobin A1c - ICD9: 790.29, ICD10: R73.09 - await labs 4. Stage 3a chronic kidney disease (HCC) - ICD9: 585.3, ICD10: N18.31 Await labs - Counseled on avoiding NSAIDs, adequate hydration - ACEi/ARB prescribed: Yes 5. Gastroesophageal reflux disease without esophagitis - ICD9: 530.81, ICD10: K21.9 - Continue treatment with Prilosec 40 mg QD 6. Low serum vitamin B12 - ICD9: 266.2, ICD10: E53.8 - await labs, cont replacement 7. PAC (premature atrial contraction) - ICD9: 427.61, ICD10: I49.1 - stable no changes. Check - THYROID STIMULATING HORMONE 8. Celiac disease - ICD9: 579.0, ICD10: K90.0 - on meds per Gastro 9. Overactive bladder - ICD9: 596.51, ICD10: N32.81 - stable on Detrol 10. Chest pressure - ICD9: 786.59, ICD10: R07.89 Check - ECHO - PERFLUTREN LIPID MICROSPHERES 1.1 MG/ML INJECTION IN NS 10 ML - SODIUM CHLORIDE 0.9 % (FLUSH) INJECTION SYRINGE - ECG COMPLETE - THYROID STIMULATING HORMONE - XR CHEST 2V FRONTAL/LAT - NM CARDIAC PERF STRESS/PHARM - REGADENOSON 0.4 MG/5 ML INTRAVENOUS SYRINGE - AMINOPHYLLINE 250 MG/10 ML INTRAVENOUS SOLUTION - METOPROLOL TARTRATE 5 MG/5 ML INTRAVENOUS SOLUTION With patient's pre-existing EKG changes and MONTGOMERY she will not be able to complete a tread mill stress that is diagnostic. 11. MONTGOMERY (dyspnea on exertion) - ICD9: 786.09, ICD10: R06.09 Check - ECHO - PERFLUTREN LIPID MICROSPHERES 1.1 MG/ML INJECTION IN NS 10 ML - SODIUM CHLORIDE 0.9 % (FLUSH) INJECTION SYRINGE - SPIROMETRY - BASELINE AND POST DILATOR - ECG COMPLETE - XR CHEST 2V FRONTAL/LAT - NM CARDIAC PERF STRESS/PHARM - REGADENOSON 0.4 MG/5 ML INTRAVENOUS SYRINGE - AMINOPHYLLINE 250 MG/10 ML INTRAVENOUS SOLUTION - METOPROLOL TARTRATE 5 MG/5 ML INTRAVENOUS SOLUTION 12. Decreased stamina - ICD9: 780.79, ICD10: R53.83 check - ECHO - PERFLUTREN LIPID MICROSPHERES 1.1 MG/ML INJECTION IN NS 10 ML - SODIUM CHLORIDE 0.9 % (FLUSH) INJECTION SYRINGE - SPIROMETRY - BASELINE AND POST DILATOR - XR CHEST 2V FRONTAL/LAT - NM CARDIAC PERF STRESS/PHARM - REGADENOSON 0.4 MG/5 ML INTRAVENOUS SYRINGE - AMINOPHYLLINE 250 MG/10 ML INTRAVENOUS SOLUTION - METOPROLOL TARTRATE 5 MG/5 ML INTRAVENOUS SOLUTION 13. Ex-smoker - ICD9: V15.82, ICD10: Z87.891 Check - SPIROMETRY - BASELINE AND POST DILATOR - XR CHEST 2V FRONTAL/LAT 14. Ataxia - ICD9: 781.3, ICD10: R27.0 Check - CT BRAIN WO IVCON 15. Headache, unspecified headache type - ICD9: 784.0, ICD10: R51.9 Check - CT BRAIN WO IVCON 16. Dizziness - ICD9: 780.4, ICD10: R42 Check - US CAROTID ARTERIES [facility] 17. Encounter for screening for cardiovascular disorders - ICD9: V81.2, ICD10: Z13.6 Check - NM CARDIAC PERF STRESS/PHARM - REGADENOSON 0.4 MG/5 ML INTRAVENOUS SYRINGE - AMINOPHYLLINE 250 MG/10 ML INTRAVENOUS SOLUTION - METOPROLOL TARTRATE 5 MG/5 ML INTRAVENOUS SOLUTION Requested Prescriptions Signed Prescriptions Disp Refills metoprolol succinate ER (TOPROL XL) 100 mg 30 tablet 5 Sig: Take 1 tablet by mouth once daily. rosuvastatin (CRESTOR) 20 mg tablet 90 tablet 1 Sig: Take 1 tablet by mouth daily at bedtime. F/u in a week HTN check. F/u 6 months extensive labs prior I spent a total of 60 minutes on the date of the service which included preparing to see the patient, [id number] patient care, completing clinical documentation, performing a medically appropriate examination, counseling and educating the patient/family/caregiver and ordering medications, tests, or procedures. Patient was asked at end of visit if they had any questions or input regarding the plan of care we had discussed. Dustin Hoang MD documented in this encounter [facility] 11-18-2023 Telephone encounter Note The following approved medication requests have been transmitted electronically. Requested Prescriptions Signed Prescriptions Disp Refills lisinopril (ZESTRIL) 40 mg tablet 180 tablet 1 Sig: Take 1 tablet by mouth two times a day. Authorizing Provider: DUSTIN HOANG MD [facility] 11-18-2023 Miscellaneous Notes The following approved medication requests have been transmitted electronically. Requested Prescriptions Signed Prescriptions Disp Refills lisinopril (ZESTRIL) 40 mg tablet 180 tablet 1 Sig: Take 1 tablet by mouth two times a day. Authorizing Provider: DUSTIN HOANG MD Patient has been identified by name and date of : yes Patient phones for refill(s): Requested Prescriptions Pending Prescriptions Disp Refills lisinopril (ZESTRIL) 40 mg tablet 180 tablet 1 Sig: Take 1 tablet by mouth two times a day. Date of last office visit in primary care: 05/22/2023 Date of next office visit in primary care: 11/21/2023 Please advise. Thank you. Britany Bojorquez MA. documented in this encounter [facility] 11-18-2023 Telephone encounter Note Patient has been identified by name and date of : yes Patient phones for refill(s): Requested Prescriptions Pending Prescriptions Disp Refills lisinopril (ZESTRIL) 40 mg tablet 180 tablet 1 Sig: Take 1 tablet by mouth two times a day. Date of last office visit in primary care: 05/22/2023 Date of next office visit in primary care: 11/21/2023 Please advise. Thank you. Britany Bojorquez MA. [facility] 09-30-2023 Telephone encounter Note Patient has been identified by name and date of : Yes, Provider Dr Hoang Patient phones for refill(s): Requested Prescriptions Pending Prescriptions Disp Refills tolterodine ER (DETROL LA) 4 mg 24 hr capsule 90 capsule 1 Sig: Take 1 capsule by mouth once daily. Date of last office visit in primary care: 05/22/2023 Date of next office visit in primary care: 11/21/2023 Last refill: 03/20/23 #90 1 refill Please advise. Thank you. Chelsey Faust LPN. [facility] 09-30-2023 Miscellaneous Notes Patient has been identified by name and date of : Yes, Provider Dr Hoang Patient phones for refill(s): Requested Prescriptions Pending Prescriptions Disp Refills tolterodine ER (DETROL LA) 4 mg 24 hr capsule 90 capsule 1 Sig: Take 1 capsule by mouth once daily. Date of last office visit in primary care: 05/22/2023 Date of next office visit in primary care: 11/21/2023 Last refill: 03/20/23 #90 1 refill Please advise. Thank you. Chelsey Faust LPN. documented in this encounter [facility] 08-13-2023 Miscellaneous Notes Patient has been identified by name and date of : Yes, Provider Dr Hoang Date 08/13/23 Time 2:34 pm Patient phones for refill(s): Requested Prescriptions Pending Prescriptions Disp Refills doxazosin (CARDURA) 2 mg tablet 90 tablet 1 Sig: Take 1 tablet by mouth once daily. Date of last office visit in primary care: 05/22/2023 Date of next office visit in primary care: 11/21/2023 Please advise. Thank you. Abraham Donovan LPN. documented in this encounter [facility] 07-30-2023 Miscellaneous Notes Rx was refilled 07/29/23 Qty: 90 with 1 refill. Pt notified via . Abraham Donovan LPN documented in this encounter [facility] 07-29-2023 Miscellaneous Notes Patient has been identified by name and date of : Yes, Provider Dr Hoang Date 07/29/23 Time 12:13 pm Patient phones for refill(s): Requested Prescriptions Pending Prescriptions Disp Refills rosuvastatin (CRESTOR) 20 mg tablet 90 tablet 1 Sig: Take 1 tablet by mouth daily at bedtime. Date of last office visit in primary care: 05/22/2023 Date of next office visit in primary care: 11/21/2023 Please advise. Thank you. Abraham Donovan LPN. Patient has been identified by name and date of : Yes Requested Prescriptions Pending Prescriptions Disp Refills rosuvastatin (CRESTOR) 20 mg tablet 90 tablet 1 Sig: Take 1 tablet by mouth daily at bedtime. RX INSTRUCTIONS: Patient aware RX will be sent to pharmacy. No need to notify patient. Kandy Hopkins Pss documented in this encounter [facility] 04-21-2023 History of Presen t illness Narrative Radiology Service Progress Note PATIENT NAME: Nidhi Núñez DATE OF SERVICE: April 21, 2023 TIME: 1:31 PM PATIENT IDENTITY VERIFICATION COMPLETED USING TWO (2) IDENTIFIERS: Name and Date of confirmed by patient verbally. FALL SCREENING: Has the patient had 2 falls in the last year or 1 fall with injury or currently using an Ambulatory Assistive Device (Walker, Cane, Wheelchair, Crutches, etc.)? Yes, Patient High Risk for Falls What interventions were put in place to prevent falls during this visit? Offered Assistance with Transfers/Clothing and Instructed Patient to Remain Seated (Not on Exam Table) Until Exam PATIENT GENDER DATA: Female. status: : No status: NO. PATIENT RELEVANT IMPLANT DATA REVIEWED: Not Applicable RADIOLOGY DEPARTMENT: General X-ray: Exam(s) Completed: Chest X-Ray PERIPHERAL IV DATA: Not applicable SIGNED BY: RT Patrice(R) April 21, 2023 1:31 PM documented in this encounter [facility] 04-21-2023 History of Presen t illness Narrative 04/21/2023 Patient presents with: Rash: Possible shingles, lower back across buttock area x 3 days Cough x 1 month SUBJECTIVE: This is a 83 year old that is here today for Complaint(s) of rash on lower back x 2 days. Describes as itchy and now burning pain. Located on tailbone region. Has had shingles before, feels similar to that episode. No history of herpes simplex. Notes increased stress as her 3 weeks ago. Has been sick with a cough x 1 month. Also has a cough x 1 month, not resolving. Occasional SOB. Denies fever/chills, chest pain, nasal congestion. + rhinorrhea, leg swelling, calf pain, dizziness. PAST MEDICAL HISTORY Diagnosis Date Acute gastritis without mention of hemorrhage 03/30/2009 Advance directive discussed with patient 12/19/2021 Discussed 12/2021 Age-related cataract 08/07/2018 Arthritis of both knees 02/05/2018 Chronic pain of both knees 02/05/2018 Chronic pain syndrome 12/19/2021 Seeing pain management Diverticulosis of colon (without mention of hemorrhage) Elevated hemoglobin A1c 08/09/2018 Essential hypertension 02/05/2015 Ex-smoker 02/01/2009 Started at age 16 up to 1 PPD, quit 2014 Family history of malignant neoplasm of gastrointestinal tract GERD (gastroesophageal reflux disease) 02/05/2015 EGD (negative Browning's) Hypoglycemia, unspecified Hypoglycemia Irritable bowel disease 02/01/[address] 04/17/2020 DPA: Meghan (daughter) Low serum vitamin B12 12/23/2021 Macular degeneration 08/07/2018 Left Mixed hyperlipidemia 10/14/2006 Osteoarth NOS-other site 10/09/2006 Overactive bladder 08/07/2018 PAC (premature atrial contraction) 01/08/2023 Per vannessa 12/2022 Stage 3a chronic kidney disease (HCC) 11/21/2022 ALLERGIES Adhesive Tape (Rosins), Codeine, and Hctz [Thiazides] MEDICATIONS Current Outpatient Medications Medication Sig vit C/E/Zn/coppr/lutein/zeaxan (PRESERVISION AREDS-2 ORAL) Take by mouth. metoprolol succinate ER (TOPROL XL) 100 mg Take 1 tablet by mouth once daily. tolterodine ER (DETROL LA) 4 mg 24 hr capsule Take 1 capsule by mouth once daily. doxazosin (CARDURA) 2 mg tablet Take 1 tablet by mouth once daily. lisinopril (ZESTRIL) 40 mg tablet Take 1 tablet by mouth twice daily. rosuvastatin (CRESTOR) 20 mg tablet Take 1 tablet by mouth daily at bedtime. cyanocobalamin (VITAMIN B-12) 500 mcg tablet Take 1 tablet by mouth once daily. nystatin (MYCOSTATIN) powder Apply 1 application to affected area twice daily. diclofenac (VOLTAREN) 1 % topical gel APPLY 2 GRAMS TO AFFECTED AREA FOUR TIMES DAILY. vit A/vit C/vit E/zinc/copper (OCUVITE PRESERVISION ORAL) Take by mouth twice daily. omeprazole (PRILOSEC) 40 mg capsule Take 1 capsule by mouth daily before breakfast. 1/2 hr before meal. No current facility-administered medications for this visit. SOCIAL HISTORY Social History Tobacco Use Smoking status: Former Packs/day: 1.00 Years: 55.00 Additional pack years: 0.00 Total pack years: 55.00 Types: Cigarettes Quit date: 08/13/2014 Years since quittin.6 Smokeless tobacco: Never Vaping Use Vaping Use: Never used Substance Use Topics Alcohol use: No Drug use: No REVIEW OF SYSTEMS See HPI OBJECTIVE: BP 124/78 Pulse 92 Temp 36.9 C (98.4 F) Resp 19 Wt 71.8 kg (158 lb 6.4 oz) SpO2 95% BMI 28.06 kg/m APPEARANCE Well appearing, alert, in no acute distress, well-hydrated, well nourished. EYES PERRLA, conjunctiva and sclera normal. EARS External ears normal, canals clear. TMs normal [place] NOSE/SINUS Nares normal. Septum midline. Mucosa normal. No drainage or sinus tenderness. THROAT normal, no erythema NECK Supple, no adenopathy; HEART RRR with normal S1 and S2, LUNG clear to auscultation, No wheezing, rhonchi, rales. SKIN Skin: vesicles on an erythematous base clustered in L5/S1 distribution. The lesions do appear to cross the midline to the left. No surrounding erythema, warmth. ASSESSMENT/PLAN: 1. Rash - ICD9: 782.1, ICD10: R21 (primary diagnosis) Possible shingles. Culture obtained-limited specimen fluid F/u with PCP in 5-7 days, sooner if worsening. Reviewed red flags and when to seek care sooner - HSV1,2/VZV NAAT LESION - VALACYCLOVIR 1 GRAM TABLET 2. Acute cough - ICD9: 786.2, ICD10: R05.1 CXR demonstrates possible atelectasis vs infectious process Will treat with Doxycycline to cover for possible CAP with clinical presentation and persistent cough. F/u in 5-7 days with PCP office, sooner if worsening Reviewed red flags and when to seek care sooner in ER - XR CHEST 2V FRONTAL/LAT - DOXYCYCLINE HYCLATE 100 MG TABLET The patient indicates understanding of these issues and agrees with the plan. Monica Tan PA-C documented in this encounter [facility] 04-07-2023 Miscellaneous Notes Pts daughter called in and reports Pt is out of her Metoprolol and [facility] and [facility] on 11/21/22 and the picked up the other 90 on 02/21/23, so he states Pt should still have pills left. Pt should have medication to take her through 05/23/23. Called Pts Granddaughter Meghan and let her know this information. She is going to call her mom and have her look some more. I told her if anything they could just buy what they need to make it through until the insurance will pay , and to download Rx[employer]aver onto her phone and it will give her a discounted adler without insurance. It was $11-12 at [facility] for 30 pills. documented in this encounter [facility] 04-03-2023 Miscellaneous Notes The following approved medication requests have been transmitted electronically. Requested Prescriptions Signed Prescriptions Disp Refills metoprolol succinate ER (TOPROL XL) 100 mg 30 tablet 5 Sig: Take 1 tablet by mouth once daily. Authorizing Provider: DUSTIN HOANG MD Patient has been identified by name and date of : Yes Requested Prescriptions Pending Prescriptions Disp Refills metoprolol succinate ER (TOPROL XL) 100 mg 30 tablet 5 Sig: Take 1 tablet by mouth once daily. RX INSTRUCTIONS: Patient aware RX will be sent to pharmacy. No need to notify patient. Charlie Bradley MA Joseph 11/20/2022 Apr 2005/2023 Last refill: Patient has been identified by name and date of : Yes, Provider Viktor Date 04-03-23 Time 1:47 pm Patient phones for refill(s): Requested Prescriptions Pending Prescriptions Disp Refills metoprolol succinate ER (TOPROL XL) 100 mg 30 tablet 5 Sig: Take 1 tablet by mouth once daily. Date of last office visit in primary care: 11-20-22 Date of next office visit in primary care: 05-22-23 Last 2 Encounter Wt Readings: Date: Wt: 11/20/2022 75.8 kg (167 lb) 09/19/2022 75.3 kg (166 lb) Previous labs/tests for medication: Blood Pressure: BUN (mg/dL) Date Value 11/20/2022 20 06/19/2021 18 Sodium (mmol/L) Date Value 11/20/2022 140 06/19/2021 140 Last 1 Encounter BP Readings: Date: BP: 11/20/2022 128/86 Please advise. Thank you. Andrew Sanchez RN. Patient has been identified by name and date of : Yes Requested Prescriptions Pending Prescriptions Disp Refills metoprolol succinate ER (TOPROL XL) 100 mg 30 tablet 5 Sig: Take 1 tablet by mouth once daily. RX INSTRUCTIONS: Patient aware RX will be sent to pharmacy. No need to notify patient. Elidia Hagen documented in this encounter [facility] 04-03-2023 Miscellaneous Notes Patient and daughter, Gabi, reports patient is out of metoprolol and [facility] tells them they need new Rx. They also report patient has been out of doxazosin for 4 days, and [facility] tells them they need a new Rx. This nurse spoke with pharmacist at [facility], who reports they never received the doxazosin 2 mg take one daily #90 1 refill Rx on 01-16-23. Given verbal to pharmacist. Pharmacist reports patient is out of refills on metoprolol and will need new Rx. Asking pcp to send new Rx for metoprolol. Looks like it was pended in another encounter. documented in this encounter [facility] 03-20-2023 Miscellaneous Notes FYI: Grand daughter calls to report that patient is not feeling well. She believes that she is getting pneumonia. Very weak. Hasn't been out of bed for days, not eating or drinking well. Patient refusing treatment and asking for Dr. Hoang to prescribe an antibiotic. Notified granddaughter that patient would need an appointment for an antibiotic and if she is so ill that she is not able to get out of bed per triage protocol the squad needs to be called and patient needs to be taken to the ER for proper evaluation now. Grand daughter verbalizes understanding. Dayna Osorio RN documented in this encounter [facility] 03-20-2023 Miscellaneous Notes Refilled Doxazosin 01/16/23 with 90 tabs and 1 refill to [facility]. Advised via message to contact pharmacy. Samantha Luo MA documented in this encounter [facility] 03-20-2023 Miscellaneous Notes JOSEPH: 11/20/22 with PCP NOV: 05/22/23-medicare wellness with [facility] Last refill: Omeprazole: 07/25/22 With 30 and 5 refills Tolterodine: 08/29/22 With 30 and 5 refills Refill requesting 90 day supply. Pended as requested. Samantha Luo MA documented in this encounter [facility] 01-31-2023 Miscellaneous Notes Call to granddaughterMeghan notified her of message below. Verbalized understanding. Wanted PCP to know pt was taken by squad to [facility] ED on 01/29 was not admitted. Scanned documented routed to PCP in abstract. Shantelle Shankar Ma Let patient know stress test was negative for blood flow issues. Scan on 01/29/2023 2:41 PM by Provider, External, PACarlosC: Stress Test Please review results. Charlie Bradley MA documented in this encounter [facility] 01-29-2023 Miscellaneous Notes Noted and agree. Granddaughter (Meghan) calls to report that patient went to [facility] this morning for a stress test and didn't tolerate it well. Patient had an urinary accident during test and then had to be taken to car by w/c d/t weakness. Meghan reports that currently patient is lethargic and bp is 64/44. Recommended patient be taken to ER and safest route would be to call an ambulance. Meghan verbalizes understanding and will call the squad. Dayna Osorio, RN documented in this encounter [facility] 01-16-2023 Miscellaneous Notes Patient has been identified by name and date of : Yes Patient phones for refill(s): Requested Prescriptions Pending Prescriptions Disp Refills doxazosin (CARDURA) 2 mg tablet 90 tablet 1 Sig: Take 1 tablet by mouth once daily. Date of last office visit in primary care: 11/20/2022 Next appointment scheduled 05/22/2023 Please advise. Thank you. Yeni Thomas LPN documented in this encounter [facility] 01-10-2023 Miscellaneous Notes Spoke to Meghan wh verbalized understanding Britany Bojorquez Ma Let daughter know yes Nidhi would need to travel to see the internal corrosion specialist. The closest facility would be [facility]. Patient's granddaughter notified and voiced understanding. We have faxed twice to [facility] to get her stress test scheduled. I am refaxing again today and did give meghan the number again and if she doesn't hear from anyone to give us a message. Meghan's concern with Heart electrical specialist, would patient have to travel to have this completed? Charlie Bradley MA Let patient know her halter monitor shows occasional premature beats. These are benign but with the episode she had she c/o shortness of breath and chest pain. With her heart rate being on the lower end of normal I would not want to increase her metoprolol. The next step would be to see a heart electrical specialist. If ok will place consult. I done see that she ever got her stress test completed. No recorded of it being set up through us? Did she do it somewhere else? documented in this encounter [facility] 11-29-2022 History of Presen t illness Narrative Scan on 11/25/2022 8:21 AM by External Provider, PA-C: Miscellaneous Lab Scan on 11/26/2022 6:37 PM by External Provider, PA-C: Miscellaneous Lab Scan on 11/28/2022 12:34 AM by External Provider, PA-C: Miscellaneous Lab Charlie Bradley MA documented in this encounter [facility] 11-22-2022 Miscellaneous Notes Spoke with Meghan matamoros and gave results and instructions. Voiced understanding. Charlie Bradley MA Let patient know CBC, thyroid labs, electrolytes were all ok. Her kidney functions showed mild decrease in function which we will monitor. Would advise avoiding frequent use of Advil, aleve, Ibuprofen, Motrin or naproxen since these can all be hard on the kidnies. Tylenol is ok and much safer. Also trying to get 6-8, eight ounce glasses of water a day helps. documented in this encounter [facility] 11-21-2022 History of Presen t illness Narrative Scan on 11/18/2022 5:37 PM by External Provider, VÍCTOR: Miscellaneous Lab documented in this encounter [facility] 11-20-2022 Instructions Dustin Hoang MD - 11/20/2022 10:22 AM EDT Please bring in copies of your power of claims attorney for health care and living will. Please get your second shingles vaccine at [facility] and let Dr. Hoang know. Please get labs and urine test done on or after 05/09/2023 prior to your next visit. documented in this encounter [facility] 11-20-2022 History of Presen t illness Narrative Chief Complaint Patient presents with: F/U 6 months HPI Nidhi Núñez is a 82 year old female who presents here today for 6 month follow up. Patient was scheduled in 06/2022 for 6 month follow up which was cancelled rescheduled until 07/2022. Patient was then seen for stomach pain and scheduled to follow up on stomach pain/routine follow up appointment was scheduled 08/15/2022. Patient was then ended up being seen for chest pain and scheduled to follow up in another 4 weeks. Patient was seen 09/19/2022 and then had leg cramps. Patient was then scheduled with Dr. Hoang as a 2 month follow up but in fact is a 6 month follow up. Patient will need to be scheduled for her wellness exam. Patient with hx of HTN, HLP, GERD, elevate a1c, OAB, and those as below Patient has bene doing ok. No new issues or concerns Office visit - medicare wellness 12/2021 Patient with hx of HTN, HLP, GERD, elevate a1c, OAB, and those as below Past medical history, appointments, medications, allergies reviewed. Previous Medical History PAST MEDICAL HISTORY Diagnosis Date Acute gastritis without mention of hemorrhage 03/30/2009 Advance directive discussed with patient 12/19/2021 Discussed 12/2021 Age-related cataract 08/07/2018 Arthritis of both knees 02/05/2018 Backache, unspecified 02/17/2009 Chronic pain of both knees 02/05/2018 Chronic pain syndrome 12/19/2021 Seeing pain management Diverticulosis of colon (without mention of hemorrhage) Elevated hemoglobin A1c 08/09/2018 Essential hypertension 02/05/2015 Ex-smoker 02/01/2009 Started at age 16 up to 1 PPD, quit 2014 Family history of malignant neoplasm of gastrointestinal tract GERD (gastroesophageal reflux disease) 02/05/2015 EGD (negative Browning's) Hypoglycemia, unspecified Hypoglycemia Irritable bowel disease 02/01/[address] 04/17/2020 DPA: Meghan (daughter) Low serum vitamin B12 12/23/2021 Macular degeneration 08/07/2018 Left Mixed hyperlipidemia 10/14/2006 Osteoarth NOS-other site 10/09/2006 Overactive bladder 08/07/2018 Previous Surgical History PAST SURGICAL HISTORY Procedure Laterality Date *STRESS TEST PC 05/27/2017 normal 2D ECHO (EXEP) 05/27/2017 EF=70%, mild LVH, no significant valvue issues ANTERIOR COLPORRAPHY RPR CYSTOCELE W/CYSTO Cystocele repair, x2 CATARACT EXTRACTION HX Left 2011 COLONOSCOPY FLX DX W/COLLJ SPEC WHEN PFRMD 03/30/09 EGD TRANSORAL BIOPSY SINGLE/MULTIPLE 03/30/09 FECAL OCCULT BLOOD TEST 05/12/2017 negative TOTAL ABDOMINAL HYSTERECT W/WO RMVL TUBE OVARY 1970's Hysterectomy, RAY XCAPSL CTRC RMVL INSJ IO LENS PROSTH W/O ECP Right 06/2019 Cataract Extraction with PC IOL Family History FAMILY HISTORY Problem Relation Age of Onset Diabetes Mother Emphysema Mother Cancer Mother skin Colon Cancer Father liver cancer Diabetes Father Patient Allergies ALLERGIES Allergen Reactions Adhesive Tape (Jeannette* Rash Codeine GI Upset Hctz [Thiazides] Other: See Comments Made dizzy Current Medications Current Outpatient Medications on File Prior to Visit Medication Sig doxazosin (CARDURA) 2 mg tablet Take 1 tablet by mouth once daily. tolterodine ER (DETROL LA) 4 mg 24 hr capsule Take 1 capsule by mouth once daily. lisinopril (ZESTRIL, PRINIVIL) 40 mg tablet Take 1 tablet by mouth twice daily. omeprazole (PRILOSEC) 40 mg capsule Take 1 capsule by mouth daily before breakfast. 1/2 hr before meal. rosuvastatin (CRESTOR) 20 mg tablet Take 1 tablet by mouth daily at bedtime. metoprolol succinate ER (TOPROL XL) 100 mg Take 1 tablet by mouth once daily. cyanocobalamin (VITAMIN B-12) 500 mcg tablet Take 1 tablet by mouth once daily. loratadine (CLARITIN) 10 mg tablet Take 1 tablet by mouth once daily. nystatin (MYCOSTATIN) powder Apply 1 application to affected area twice daily. meloxicam (MOBIC) 15 mg tablet TAKE 0.5-1 TABLETS BY MOUTH ONCE DAILY NEEDED. (Patient not taking: Reported on 12/19/2021 ) diclofenac (VOLTAREN) 1 % topical gel APPLY 2 GRAMS TO AFFECTED AREA FOUR TIMES DAILY. vit A/vit C/vit E/zinc/copper (OCUVITE PRESERVISION ORAL) Take by mouth twice daily. No current facility-administered medications on file prior to visit. Social History Social History Tobacco Use Smoking status: Former Packs/day: 1.00 Years: 55.00 Pack years: 55.00 Types: Cigarettes Quit date: 08/13/2014 Years since quittin.2 Smokeless tobacco: Never Vaping Use Vaping Use: Never used Substance Use Topics Alcohol use: No Drug use: No Review of Symptoms REVIEW OF SYSTEMS GENERAL: No weight loss, malaise or fevers NECK: Negative for lumps, goiter, pain and significant neck swelling RESPIRATORY: Negative for cough, hemoptysis, no increased wheezing, COPD, dyspnea or shortness of breath CARDIOVASCULAR: Negative for leg swelling, hypertension, CHF or palpitations. Patient still getting the chest pain mainly in the evening. Can be made worse with activity and improves with rest. Has been getting palpitations that take her breath away and getting dizzy. No syncope. GI: No vomiting, or diarrhea. Getting some nausea but not related to the chest pain or palpitations. No GERD with taking acid medication. ENDOCRINE: Negative for cold or heat intolerance, polyuria. Some polydipsia NEURO: No history of syncope, paralysis, seizures or tremors has her typical headache's EXAM: BP 128/86 (BP Site: Right Arm, BP Position: Sitting, BP Cuff Size: Regular Adult) Pulse (!) 56 Resp 16 Wt 75.8 kg (167 lb) SpO2 97% BMI 29.58 kg/m Last 4 Encounter Wt Readings: Date: Wt: 11/20/2022 75.8 kg (167 lb) 09/19/2022 75.3 kg (166 lb) 08/15/2022 75.8 kg (167 lb) 07/25/2022 76.7 kg (169 lb) General Appearance: Well appearing, alert, in no acute distress, well-hydrated, well nourished.. Neck: Supple, no adenopathy; thyroid symmetric, normal size, no bruits. Lungs: Lungs clear to auscultation. No wheezing, rhonchi, rales.. Heart: RRR without murmur, gallop, or rubs. No ectopy. Abdomen: Normal abdominal exam, Abdomen soft, mild tenderness in upper abdomen bilaterally (seeing Gastro). Bowel sounds normal. No masses, organomegaly. Extremities: No deformities, edema, skin discoloration,. Good capillary refill. . Musculoskeletal: Muscular strength intact. Peripheral Pulses: Normal. Neurologic: Gait normal: aided with cane. Sensation grossly intact.. Health Maintenance List COVID-19 VACCINE(4 - Booster for Pfizer series) due on 05/23/2021 SHINGRIX VACCINE(2 of 2) due on 04/25/2022 ADVANCE DIRECTIVE DISCUSSION due on 06/09/2022 DEPRESSION ASSESSMENT Never done DTAP,TDAP,TD(1 - Tdap) due on 12/19/2022 DIABETES SCREEN due on 09/23/2025 BONE DENSITY Completed INFLUENZA Completed PNEUMOCOCCAL: 65+ Completed Data reviewed Component Latest Ref Rng & Units 07/25/2022 08/15/2022 09/23/2022 WBC 3.70 - 11.00 k/uL 6.90 RBC 3.90 - 5.20 m/uL 4.69 Hemoglobin 11.5 - 15.5 g/dL 13.4 Hematocrit 36.0 - 46.0 % 40.6 MCV 80.0 - 100.0 fL 86.6 MCH 26.0 - 34.0 pg 28.6 MCHC 30.5 - 36.0 g/dL 33.0 RDW-CV 11.5 - 15.0 % 13.4 Platelet Count 150 - 400 k/uL 238 MPV 9.0 - 12.7 fL 10.4 Neut% % 60.5 Abs Neut (ANC) 1.45 - 7.50 k/uL 4.18 Lymph% % 26.8 Abs Lymph 1.00 - 4.00 k/uL 1.85 [place]% % 8.6 Abs [place] <0.87 k/uL 0.59 Eosin% % 3.2 Abs Eosin <0.46 k/uL 0.22 Baso% % 0.6 Abs Baso <0.11 k/uL 0.04 Immature Gran % % 0.3 IMMATURE GRANS (ABS) <0.10 k/uL <0.03 NRBC /100 WBC 0.0 Absolute nRBC <0.01 k/uL <0.01 DTYPE Auto Protein, Total 6.3 - 8.0 g/dL 7.3 Albumin 3.9 - 4.9 g/dL 4.3 Calcium 8.5 - 10.2 mg/dL 9.7 Bilirubin, Total 0.2 - 1.3 mg/dL 0.4 Alkaline Phosphatase 34 - 123 U/L 48 AST 13 - 35 U/L 22 ALT 7 - 38 U/L 14 Glucose 74 - 99 mg/dL 109 (H) BUN 7 - 21 mg/dL 20 Creatinine 0.58 - 0.96 mg/dL 1.05 (H) Sodium 136 - 144 mmol/L 144 Potassium 3.7 - 5.1 mmol/L 4.1 Chloride 97 - 105 mmol/L 106 (H) CO2 22 - 30 mmol/L 26 Anion Gap 9 - 18 mmol/L 12 eGFR >=60 mL/min/1.73m 53 (L) Total Cholesterol, Nonfasting <200 mg/dL 139 Triglycerides, Nonfasting <150 mg/dL 163 (H) HDL Cholesterol, Nonfasting >39 mg/dL 47 LDL Cholesterol, Nonfasting <100 mg/dL 59 Non HDL Cholesterol, Nonfasting <130 mg/dL 92 VLDL Cholesterol, Nonfasting <30 mg/dL 33 (H) Total Chol/HDL Ratio, Nonfasting <5.10 mg/dL 2.96 LDL/HDL Ratio, Nonfasting <2.54 mg/dL 1.26 Hemoglobin A1C 4.3 - 5.6 % 5.9 (H) Estimated Average Glucose mg/dL 123 Vitamin B12 232 - 1,245 pg/mL 611 A/P ASSESSMENT/PLAN: 1. Essential hypertension - ICD9: 401.9, ICD10: I10 (primary diagnosis) - Controlled - Continue current medications - Recommend home blood pressure monitoring, to bring results to next visit - Encouraged sodium restriction, DASH or Mediterranean diet - Recommend regular aerobic exercise - METOPROLOL SUCCINATE ER 100 MG TABLET,EXTENDED RELEASE 24 HR Check - BASIC METABOLIC PNL 2. Mixed hyperlipidemia - ICD9: 272.2, ICD10: E78.2 - Controlled - Counseled on healthy diet and regular exercise - cont Tx - ROSUVASTATIN 20 MG TABLET Check - BASIC METABOLIC PNL 3. Gastroesophageal reflux disease without esophagitis - ICD9: 530.81, ICD10: K21.9 - Continue treatment with Prilosec 40 mg every day - seeing GAstro 4. Elevated hemoglobin A1c - ICD9: 790.29, ICD10: R73.09 - controlled 5. Low serum vitamin B12 - ICD9: 266.2, ICD10: E53.8 Cont replacement - CBC + DIFF 6. Angina pectoris (HCC) - ICD9: 413.9, ICD10: I20.9 Check - NM CARDIAC PERF STRESS/PHARM - REGADENOSON 0.4 MG/5 ML INTRAVENOUS SYRINGE - INSERT IV ([place]) - IV DISCONTINUE - NM CARDIAC PERF STRESS/PHARM - REGADEN[place] 0.4 MG/5 ML INTRAVENOUS SYRINGE - INSERT IV (AL,GA) - IV DISCONTINUE 7. SOB (shortness of breath) - ICD9: 786.05, ICD10: R06.02 Check - NM CARDIAC PERF STRESS/PHARM - [place] 0.4 MG/5 ML INTRAVENOUS SYRINGE - INSERT IV (AL,GA) - IV DISCONTINUE - [facility] [employer] [place] [facility] - CBC + DIFF - NM CARDIAC PERF STRESS/PHARM - REGADEN[place] 0.4 MG/5 ML INTRAVENOUS SYRINGE - INSERT IV (AL,GA) - IV DISCONTINUE 8. Palpitations - ICD9: 785.1, ICD10: R00.2 Check - [facility] [place] [employer] MONITOR - BASIC METABOLIC PNL - TSH BLD - T4 FREE/FREE THYROX - NM CARDIAC PERF STRESS/PHARM - REG[place] 0.4 MG/5 ML INTRAVENOUS SYRINGE - INSERT IV (AL,GA) - IV DISCONTINUE 9. Encounter for immunization - ICD9: V03.89, ICD10: Z23 - [employer] COVID-19 BIVALENT VACCINE, AGE 12+ YR 10. Advance directive discussed with patient - ICD9: V65.49, ICD10: Z71.89 - patient to bring in copies. 12. Stage 3a chronic kidney disease (HCC) - ICD9: 585.3, ICD10: N18.31 - cont current Tx and await labs. F/u 6 months extensive check CMP, Lipid, UA, A1c, CBC, B12, Mg prior Dustin Hoang MD documented in this encounter [facility] 11-19-2022 History of Presen t illness Narrative Scan on 11/15/2022 3:59 PM by External Provider, PA-C: Chemistry Scan on 11/18/2022 5:37 PM by External Provider, PACarlosC: Miscellaneous Lab Charlie Bradley MA documented in this encounter [facility] 09-20-2022 Miscellaneous Notes Patient was notified Britany Bojorquez Ma Please let patient know that her blood work shows some mild dehydration I would like her to increase her water intake and repeat the labs on Friday. documented in this encounter [facility] 08-29-2022 Miscellaneous Notes Patient has been identified by name and date of : Yes Patient phones for refill(s): Requested Prescriptions Pending Prescriptions Disp Refills tolterodine ER (DETROL LA) 4 mg 24 hr capsule 30 capsule 5 Sig: Take 1 capsule by mouth once daily. Date of last office visit in primary care: 08/15/2022 Please advise. Thank you. Yeni Thomas LPN documented in this encounter [facility] 08-21-2022 History of Presen t illness Narrative Scan on 08/16/2022 9:27 AM by External Provider: TONNY Bradley MA documented in this encounter [facility] 08-19-2022 Miscellaneous Notes Faxed. Charlie Bradley MA Consult order placed. Please fax it along with Office note from 07/25/2022, all labs dated 07/25/2022, US abdomen dated 07/30/[address] abd/pelvis dated 08/15/2022. Along with demographics. Patient's daughter notified and she is still experiencing stomach pain. She would like to see Dr. Friend. Charlie Bradley MA Let patient know CT scan of abdomen showed no masses and no sweling of the kidnies. The common bile duct is slightly distended but no stones. If still having the abdominal pain then I will want to send her to Gastro. documented in this encounter [facility] 08-16-2022 Miscellaneous Notes Patient and granddaughter notified and verbalized understanding Samantha Meneses Cma Please let patient know that her blood count is normal. documented in this encounter [facility] 08-15-2022 Miscellaneous Notes Addended by: SHAKEEL COLLINS on: 08/15/2022 11:30 AM Modules accepted: Orders documented in this encounter [facility] 08-15-2022 Instructions Shakeel Collins APRN.CNP - 08/15/2022 11:02 AM EST Complete lab work Start increased dose of doxazosin Follow up in 4 weeks for Bp check. documented in this encounter [facility] 08-15-2022 History of Presen t illness Narrative Chief Complaint Patient presents with: Follow Up HPI Nidhi Núñez is a 82 year old female who presents here today for Above Complaints.. Patient presents for follow up for Elevated BP. Patient states that she was seen by Dr. Hoang one month ago and was noted to have elevated bp and he recommended follow up in 1 month for re-evaluation. Patient denies headache but reports chest pain intermittently with concurrent shortness of breath with last episode on Friday. Patient reports that she did not take her BP at that time. Past medical history, appointments, medications, allergies reviewed. Previous Medical History PAST MEDICAL HISTORY Diagnosis Date Acute gastritis without mention of hemorrhage 03/30/2009 Advance directive discussed with patient 12/19/2021 Discussed 12/2021 Age-related cataract 08/07/2018 Arthritis of both knees 02/05/2018 Backache, unspecified 02/17/2009 Chronic pain of both knees 02/05/2018 Chronic pain syndrome 12/19/2021 Seeing pain management Diverticulosis of colon (without mention of hemorrhage) Elevated hemoglobin A1c 08/09/2018 Essential hypertension 02/05/2015 Ex-smoker 02/01/2009 Started at age 16 up to 1 PPD, quit 2014 Family history of malignant neoplasm of gastrointestinal tract GERD (gastroesophageal reflux disease) 02/05/2015 EGD (negative Browning's) Hypoglycemia, unspecified Hypoglycemia Irritable bowel disease 02/01/[address] 04/17/2020 DPA: Meghan (daughter) Low serum vitamin B12 12/23/2021 Macular degeneration 08/07/2018 Left Mixed hyperlipidemia 10/14/2006 Osteoarth NOS-other site 10/09/2006 Overactive bladder 08/07/2018 Previous Surgical History PAST SURGICAL HISTORY Procedure Laterality Date *STRESS TEST PC 05/27/2017 normal 2D ECHO (EXEP) 05/27/2017 EF=70%, mild LVH, no significant valvue issues ANTERIOR COLPORRAPHY RPR CYSTOCELE W/CYSTO Cystocele repair, x2 CATARACT EXTRACTION HX Left 2011 COLONOSCOPY FLX DX W/COLLJ SPEC WHEN PFRMD 03/30/09 EGD TRANSORAL BIOPSY SINGLE/MULTIPLE 03/30/09 FECAL OCCULT BLOOD TEST 05/12/2017 negative TOTAL ABDOMINAL HYSTERECT W/WO RMVL TUBE OVARY 1970' Hysterectomy, RAY XCAPSL CTRC RMVL INSJ IO LENS PROSTH W/O ECP Right 06/2019 Cataract Extraction with PC IOL Family History FAMILY HISTORY Problem Relation Age of Onset Diabetes Mother Emphysema Mother Cancer Mother skin Colon Cancer Father liver cancer Diabetes Father Patient Allergies ALLERGIES Allergen Reactions Adhesive Tape (Jeannette* Rash Codeine GI Upset Hctz [Thiazides] Other: See Comments Made dizzy Current Medications Current Outpatient Medications on File Prior to Visit Medication Sig doxazosin (CARDURA) 1 mg tablet Take 1 tablet by mouth once daily. lisinopril (ZESTRIL, PRINIVIL) 40 mg tablet Take 1 tablet by mouth twice daily. omeprazole (PRILOSEC) 40 mg capsule Take 1 capsule by mouth daily before breakfast. 1/2 hr before meal. rosuvastatin (CRESTOR) 20 mg tablet Take 1 tablet by mouth daily at bedtime. metoprolol succinate ER (TOPROL XL) 100 mg Take 1 tablet by mouth once daily. tolterodine ER (DETROL LA) 4 mg 24 hr capsule Take 1 capsule by mouth once daily. cyanocobalamin (VITAMIN B-12) 500 mcg tablet Take 1 tablet by mouth once daily. loratadine (CLARITIN) 10 mg tablet Take 1 tablet by mouth once daily. nystatin (MYCOSTATIN) powder Apply 1 application to affected area twice daily. meloxicam (MOBIC) 15 mg tablet TAKE 0.5-1 TABLETS BY MOUTH ONCE DAILY NEEDED. (Patient not taking: Reported on 12/19/2021 ) diclofenac (VOLTAREN) 1 % topical gel APPLY 2 GRAMS TO AFFECTED AREA FOUR TIMES DAILY. vit A/vit C/vit E/zinc/copper (OCUVITE PRESERVISION ORAL) Take by mouth twice daily. No current facility-administered medications on file prior to visit. Social History Social History Tobacco Use Smoking status: Former Packs/day: 1.00 Years: 55.00 Pack years: 55.00 Types: Cigarettes Quit date: 08/13/2014 Years since quittin.0 Smokeless tobacco: Never Vaping Use Vaping Use: Never used Substance Use Topics Alcohol use: No Drug use: No Review of Symptoms REVIEW OF SYSTEMS SEE HPI EXAM: BP 158/96 Pulse 64 Resp 16 Wt 75.8 kg (167 lb) BMI 29.58 kg/m General Appearance: Well appearing, alert, in no acute distress, well-hydrated, well nourished.. Lungs: Lungs clear to auscultation. No wheezing, rhonchi, rales.. Heart: RRR without murmur, gallop, or rubs. No ectopy. Health Maintenance List COVID-19 VACCINE(4 - Booster for Pfizer series) due on 05/23/2021 SHINGRIX VACCINE(2 of 2) due on 04/25/2022 ADVANCE DIRECTIVE DISCUSSION due on 06/09/2022 DEPRESSION ASSESSMENT Never done DTAP,TDAP,TD(1 - Tdap) due on 12/19/2022 DIABETES SCREEN due on 07/25/2025 BONE DENSITY Completed INFLUENZA Completed PNEUMOCOCCAL: 65+ Completed ASSESSMENT/PLAN: 1. Chest pain, unspecified type - ICD9: 786.50, ICD10: R07.9 (primary diagnosis) Chest pain of unclear etiology, patient with significant risk factor(s) of Hypertension and Hyperlipidemia - Electrocardiogram: An ECG today showed sinus bradycardia. T wave abnormality noted but is chronic for patient, unchanged when compared to EKG from 2017. - Lab evaluation CBC and Troponin - CBC + DIFF - ECG COMPLETE - HIGH SENSITIVITY TROPONIN T 2. Essential hypertension - ICD9: 401.9, ICD10: I10 - poor control - Continue current medication(s) - Increase Cardura - Encouraged dietary sodium restriction/DASH diet - Recommended regular aerobic exercise. - Recommend home blood pressure monitoring, to bring results in on next visit - Discussed need and benefit for weight loss. - Follow up in 1 month for BP recheck. - Goal of BP <130/80 - DOXAZOSIN 2 MG TABLET Shakeel Collins APRN.LISA documented in this encounter [facility] 08-15-2022 History of Presen t illness Narrative Radiology Service Progress Note DATE OF SERVICE: August 15, 2022 TIME: 2:53 PM PATIENT IDENTITY VERIFICATION COMPLETED USING TWO (2) STANDARD IDENTIFIERS: Name and Date of confirmed by patient verbally. FALL SCREENING: Has the patient had 2 falls in the last year or 1 fall with injury or currently using an Ambulatory Assistive Device (Walker, Cane, Wheelchair, Crutches, etc.)? No PATIENT GENDER DATA: Female. status: : No status: NO. PATIENT RELEVANT IMPLANT DATA REVIEWED: Yes ALLERGIES: Reviewed and unchanged CONTRAST ALLERGY: NO. EXAM: CT -CONTRAST INDUCED NEPHROPATHY RISK FACTORS: Patient age > 60 years CREATININE: Creatinine Date Value Ref Range Status 08/15/2022 0.93 0.58 - 0.96 mg/dL Final 12/19/2021 0.91 0.58 - 0.96 mg/dL Final 06/19/2021 0.88 0.58 - 0.96 mg/dL Final Estimated Glomerular Filtration Rate Date Value Ref Range Status 08/15/2022 61 >=60 mL/min/1.73m Final Comment: Estimated Glomerular Filtration Rate (eGFR) is calculated using the 2020 CKD-EPI creatinine equation. This equation utilizes serum creatinine, sex, and age as parameters. The creatinine assay has traceable calibration to isotope dilution-mass spectrometry. Refer to KDIGO guidelines for clinical interpretation. In patients with unstable renal function, e.g. those with acute kidney injury, the eGFR may not accurately reflect actual GFR. eGFR- Date Value Ref Range Status 06/19/2021 >60 Final P.O.C.T. RESULTS: POC done: Yes, See Lab Tab August 15, 2022 TREATMENT: N/A PERIPHERAL IV DATA: Ambulatory: A peripheral IV was started in the Left antecubital site with a Angio cath: 22 gauge. RADIOLOGY DEPARTMENT: CT; Exam(s) Completed: Abdomen SIGNATURE: RT Alyssa(R) PATIENT NAME: Nidhi Núñez DATE: August 15, 2022 TIME: 2:53 PM documented in this encounter [facility] 08-01-2022 Miscellaneous Notes Patient returned call and given provider's message below with verbalized understanding. Patient states she will have her granddaughter call back to schedule the CT scan. Called and left a voicemail for the Patient to call back and ask for a nurse to receive the providers message. Alma Delia Irvin RN Let patient know the US of her abdomen shows dilation of the ducts in her liver and dilation of the ductus in the right kidney. I want to get a CT to further evaluate these findings. Orders placed. documented in this encounter [facility] 07-31-2022 History of Presen t illness Narrative Scan on 07/30/2022 3:30 PM by External Provider: Consultation - Orthopedics Charlie Bradley MA documented in this encounter [facility] 07-30-2022 History of Presen t illness Narrative Radiology Service Progress Note PATIENT NAME: Nidhi Núñez DATE OF SERVICE: July 30, 2022 TIME: 10:17 AM PATIENT IDENTITY VERIFICATION COMPLETED USING TWO (2) IDENTIFIERS: Name and Date of confirmed by patient verbally. FALL SCREENING: Has the patient had 2 falls in the last year or 1 fall with injury or currently using an Ambulatory Assistive Device (Walker, Cane, Wheelchair, Crutches, etc.)? Yes, Patient High Risk for Falls What interventions were put in place to prevent falls during this visit? Increased Observations by Caregivers PATIENT GENDER DATA: Female. status: : No status: NO. PATIENT RELEVANT IMPLANT DATA REVIEWED: Not Applicable RADIOLOGY DEPARTMENT: Ultrasound PERIPHERAL IV DATA: Not applicable SIGNED BY: Fabiola Landeros RDMS July 30, 2022 10:17 AM documented in this encounter [facility] 07-26-2022 Miscellaneous Notes Pts granddaughter called and is notified of providers results and instructions. She voices understanding. Alma Delia Irvin RN Left message to call office. 07/26/2022 12:20 PM. Chelsey Faust LPN Let patient know Pancreatic functions, liver functions, calcium labs, lipid panel and B12 were all ok. A1c stable at 5.9 %. Continue work on diet to reduce risk of progressing onto diabetes. documented in this encounter [facility] 07-25-2022 History of Presen t illness Narrative Chief Complaint Patient presents with: F/U 6 months HPI Nidhi Núñez is a 82 year old female who presents here today for Upper abdomen pain; nausea and bloating x several months. . Patient with Hx of GERD and taking omeprazole 20 mg a day. Has also had recent loose stools. Initially had some vomiting without gross blood or coffee grounds. Denies hematochezia or melena. No further vomiting. Still has her gal bladder. Sometimes pain is worse after eating. Denies increased nausea after eating. Not aware of certain foods being an issue. No fevers. Has night sweats on occasion but this has been going on for a long time without recent changes.. BP's at home running 130's/70's Patient has been having low back pain for several years. C/o numbness in the right leg. Pain is mainly in the lower thoracic upper lumber spine. Past medical history, appointments, medications, allergies reviewed. Previous Medical History PAST MEDICAL HISTORY Diagnosis Date Acute gastritis without mention of hemorrhage 03/30/2009 Advance directive discussed with patient 12/19/2021 Discussed 12/2021 Age-related cataract 08/07/2018 Arthritis of both knees 02/05/2018 Backache, unspecified 02/17/2009 Chronic pain of both knees 02/05/2018 Chronic pain syndrome 12/19/2021 Seeing pain management Diverticulosis of colon (without mention of hemorrhage) Elevated hemoglobin A1c 08/09/2018 Essential hypertension 02/05/2015 Ex-smoker 02/01/2009 Started at age 16 up to 1 PPD, quit 2014 Family history of malignant neoplasm of gastrointestinal tract GERD (gastroesophageal reflux disease) 02/05/2015 EGD (negative Browning's) Hypoglycemia, unspecified Hypoglycemia Irritable bowel disease 02/01/[address] 04/17/2020 DPA: Meghan (daughter) Low serum vitamin B12 12/23/2021 Macular degeneration 08/07/2018 Left Mixed hyperlipidemia 10/14/2006 Osteoarth NOS-other site 10/09/2006 Overactive bladder 08/07/2018 Previous Surgical History PAST SURGICAL HISTORY Procedure Laterality Date *STRESS TEST PC 05/27/2017 normal 2D ECHO (EXEP) 05/27/2017 EF=70%, mild LVH, no significant valvue issues ANTERIOR COLPORRAPHY RPR CYSTOCELE W/CYSTO Cystocele repair, x2 CATARACT EXTRACTION HX Left 2011 COLONOSCOPY FLX DX W/COLLJ SPEC WHEN PFRMD 03/30/09 EGD TRANSORAL BIOPSY SINGLE/MULTIPLE 03/30/09 FECAL OCCULT BLOOD TEST 05/12/2017 negative TOTAL ABDOMINAL HYSTERECT W/WO RMVL TUBE OVARY 1970's Hysterectomy, RAY XCAPSL CTRC RMVL INSJ IO LENS PROSTH W/O ECP Right 06/2019 Cataract Extraction with PC IOL Family History FAMILY HISTORY Problem Relation Age of Onset Diabetes Mother Emphysema Mother Cancer Mother skin Colon Cancer Father liver cancer Diabetes Father Patient Allergies ALLERGIES Allergen Reactions Adhesive Tape (Jeannette* Rash Codeine GI Upset Current Medications Current Outpatient Medications on File Prior to Visit Medication Sig rosuvastatin (CRESTOR) 20 mg tablet Take 1 tablet by mouth daily at bedtime. metoprolol succinate ER (TOPROL XL) 100 mg Take 1 tablet by mouth once daily. tolterodine ER (DETROL LA) 4 mg 24 hr capsule Take 1 capsule by mouth once daily. doxazosin (CARDURA) 1 mg tablet Take 1 tablet by mouth once daily. lisinopril (ZESTRIL, PRINIVIL) 40 mg tablet Take 1 tablet by mouth twice daily. cyanocobalamin (VITAMIN B-12) 500 mcg tablet Take 1 tablet by mouth once daily. loratadine (CLARITIN) 10 mg tablet Take 1 tablet by mouth once daily. omeprazole (PRILOSEC) 20 mg capsule Take 1 capsule by mouth daily before breakfast. 1/2 hr before meal. nystatin (MYCOSTATIN) powder Apply 1 application to affected area twice daily. diclofenac (VOLTAREN) 1 % topical gel APPLY 2 GRAMS TO AFFECTED AREA FOUR TIMES DAILY. vit A/vit C/vit E/zinc/copper (OCUVITE PRESERVISION ORAL) Take by mouth twice daily. hydroCHLOROthiazide (HYDRODIURIL, ESIDRIX) 12.5 mg capsule Take 1 capsule by mouth once daily. meloxicam (MOBIC) 15 mg tablet TAKE 0.5-1 TABLETS BY MOUTH ONCE DAILY NEEDED. (Patient not taking: Reported on 12/19/2021 ) No current facility-administered medications on file prior to visit. Social History Social History Tobacco Use Smoking status: Former Packs/day: 1.00 Years: 55.00 Pack years: 55.00 Types: Cigarettes Quit date: 08/13/2014 Years since quittin.9 Smokeless tobacco: Never Vaping Use Vaping Use: Never used Substance Use Topics Alcohol use: No Drug use: No Review of Symptoms REVIEW OF SYSTEMS See HPI EXAM: BP 153/83 (BP Site: Right Arm, BP Position: Sitting, BP Cuff Size: Regular Adult) Pulse (!) 54 Resp 16 Wt 76.7 kg (169 lb) BMI 29.94 kg/m BP 160/92 Pulse (!) 54 Resp 16 Wt 76.7 kg (169 lb) BMI 29.94 kg/m Last 5 Encounter Wt Readings: Date: Wt: 07/25/2022 76.7 kg (169 lb) 12/19/2021 74.4 kg (164 lb) 10/30/2021 74.8 kg (165 lb) 06/19/2021 73.5 kg (162 lb) 11/08/2020 76.7 kg (169 lb) General Appearance: Well appearing, alert, in no acute distress, well-hydrated, well nourished.. Back: no pain to palpation of vertebrae, patient exibits pain in the lower thoracic and upper lumber regions with trying to stand and get up on the table Abdomen: Negative findings: no masses palpable, no organomegaly, no bruits heard, liver span normal to percussion, spleen non-palpable, and aorta normal, Positive findings: tenderness mild and moderate epigastric and no guarding or rebound pain.. Health Maintenance List COVID-19 VACCINE(4 - Booster for Pfizer series) due on 05/23/2021 SHINGRIX VACCINE(2 of 2) due on 04/25/2022 ADVANCE DIRECTIVE DISCUSSION due on 06/09/2022 DEPRESSION ASSESSMENT Never done DTAP,TDAP,TD(1 - Tdap) due on 12/19/2022 DIABETES SCREEN due on 12/19/2024 BONE DENSITY Completed INFLUENZA Completed PNEUMOCOCCAL: 65+ Completed Data reviewed A/P ASSESSMENT/PLAN: 1. Epigastric pain - ICD9: 789.06, ICD10: R10.13 (primary diagnosis) - Increase treatment with Prilosec 40 mg QD Check - HEPATIC FUNCTION PNL - LIPASE BLD - AMYLASE BLD - US ABD RT UPPER QUADRANT 2. Gastroesophageal reflux disease without esophagitis - ICD9: 530.81, ICD10: K21.9 - Begin treatment with Prilosec 40 mg every day Check - HEPATIC FUNCTION PNL - LIPASE BLD - AMYLASE BLD 3. Essential hypertension - ICD9: 401.9, ICD10: I10 - suboptimal control - Continue current medication(s) - Recommended regular aerobic exercise. - Recommend home blood pressure monitoring, to bring results in on next visit - will see DARIN in next few weeks. Is still elevated meds will need meds adjusted. - Goal of BP <130/80 - LISINOPRIL 40 MG TABLET - LIPID PANEL, NONFASTING 4. Mixed hyperlipidemia - ICD9: 272.2, ICD10: E78.2 check - LIPID PANEL, NONFASTING 5. Low serum vitamin B12 - ICD9: 266.2, ICD10: E53.8 Check - VITAMIN B12 BLOOD 6. Hypercalcemia - ICD9: 275.42, ICD10: E83.52 Check - PTH INTACT BLD - CALCIUM TOTAL BLD 7. Elevated hemoglobin A1c - ICD9: 790.29, ICD10: R73.09 Check - HGB A1C 8. Lumbar pain - ICD9: 724.2, ICD10: M54.50 - CONSULT TO ORTHOPAEDICS: [place] 9. Thoracic spine pain - ICD9: 724.1, ICD10: M54.6 - CONSULT TO ORTHOPAEDICS: 10. Numbness and tingling of right leg - ICD9: 782.0, ICD10: R20.0, R20.2 - CONSULT TO ORTHOPAEDICS 11. Balance problems - ICD9: 781.99, ICD10: R26.89 - CONSULT TO ORTHOPAEDICS Requested Prescriptions Signed Prescriptions Disp Refills doxazosin (CARDURA) 1 mg tablet 30 tablet 5 Sig: Take 1 tablet by mouth once daily. lisinopril (ZESTRIL, PRINIVIL) 40 mg tablet 180 tablet 1 Sig: Take 1 tablet by mouth twice daily. omeprazole (PRILOSEC) 40 mg capsule 30 capsule 5 Sig: Take 1 capsule by mouth daily before breakfast. 1/2 hr before meal. Patient to f/u routine in 4 weeks. If BP still elevated will need meds adjusted. If stomach no better will need referral to Dr. Crum. I spent a total of 31 minutes on the date of the service which included preparing to see the patient, [id number] patient care, completing clinical documentation, performing a medically appropriate examination, counseling and educating the patient/family/caregiver and ordering medications, tests, or procedures. Dustin Hoang MD documented in this encounter [facility] 04-25-2022 Miscellaneous Notes Last office visit: 12/19/21 F/u scheduled: 06/21/22 Brunilda Kinsey Ma documented in this encounter [facility] 03-29-2022 Miscellaneous Notes The following approved medication requests have been transmitted electronically. Requested Prescriptions Signed Prescriptions Disp Refills tolterodine ER (DETROL LA) 4 mg 24 hr capsule 30 capsule 5 Sig: Take 1 capsule by mouth once daily. Authorizing Provider: DUSTIN HOANG MD Patient has been identified by name and date of : Yes Requested Prescriptions Pending Prescriptions Disp Refills tolterodine ER (DETROL LA) 4 mg 24 hr capsule 30 capsule 5 Sig: Take 1 capsule by mouth once daily. RX INSTRUCTIONS: Patient aware RX will be sent to pharmacy. No need to notify patient. Charlie Bradley MA Joseph: 12/2021 Nov: 06/2022 Last refill: 12/2021 documented in this encounter [facility] 03-17-2022 Miscellaneous Notes The following approved medication requests have been transmitted electronically. Requested Prescriptions Signed Prescriptions Disp Refills doxazosin (CARDURA) 1 mg tablet 30 tablet 5 Sig: Take 1 tablet by mouth once daily. Dustin Hoang MD documented in this encounter [facility] 02-26-2022 Miscellaneous Notes TC to Meghan, she is agreeable to daily BP checks and sending office an update in 1 week. Emiliano Merritt LPN Ask Meghan if she would be able to check BP's once a day with stopping the water pill and sending in readings and an update on the staggering in a week? Meghan Chintan called back and asked the questions below. Meghan states pt has been staggering x years, but since started the water pill it has increased a lot. Jenny Turner LPN Left message for patient to contact office. Charlie Bradley MA Check with patient if the staggering episodes she discussed with the nurse today were new since the addition of the water pill or something she had of and on prior? If prior find out how long she has been having it? Manual Readin/76 Pulse: 57 Average home readings 123/71 55 Reason for blood pressure check - Last BP elevated and Medication adjustment Patient is: Taking medication as prescribed Yes Took medication today Yes Experiencing side effects Yes BP continued to be elevated at nurse visit 02/13/22. HCTZ 12.5 mg daily was added on 02/13/22. Patient continues to take Lisinopril 40mg twice daily and metoprolol 100 mg daily. Does have complaints of increase staggering episodes that last all day long. Denies any chest pain, shortness of breath, or dizziness. Does have history of headaches states usually daily and will treat with Tylenol or ibuprofen. Daily all day caffeine use. Past personal history of tobacco use; passive exposure. Alert and oriented. Did encourage patient to drink less coffee through out the day and add water in place of coffee. Pt has been identified by name and birthdate: Yes Allergies reviewed: Yes Latex allergy: no. Medication - prescribed and OTC reviewed and updated: Yes Do you need any prescription refills prior to your next visit: No Health Maintenance: Reviewed and up to date documented in this encounter [facility] 02-26-2022 History of Presen t illness Narrative Manual Readin/76 Pulse: 57 Reason for blood pressure check - Last BP elevated and Medication adjustment Patient is: Taking medication as prescribed Yes Took medication today Yes Experiencing side effects Yes BP continued to be elevated at nurse visit 02/13/22. HCTZ 12.5 mg daily was added on 02/13/22. Patient continues to take Lisinopril 40mg twice daily and metoprolol 100 mg daily. Does have complaints of increase staggering episodes that last all day long. Denies any chest pain, shortness of breath, or dizziness. Does have history of headaches states usually daily and will treat with Tylenol or ibuprofen. Daily all day caffeine use. Past personal history of tobacco use; passive exposure. Alert and oriented. Did encourage patient to drink less coffee through out the day and add water in place of coffee. Pt has been identified by name and birthdate: Yes Allergies reviewed: Yes Latex allergy: no. Medication - prescribed and OTC reviewed and updated: Yes Do you need any prescription refills prior to your next visit: No Health Maintenance: Reviewed and up to date documented in this encounter [facility] 02-13-2022 Miscellaneous Notes The following approved medication requests have been transmitted electronically. Requested Prescriptions Signed Prescriptions Disp Refills hydroCHLOROthiazide (HYDRODIURIL, ESIDRIX) 12.5 mg capsule 30 capsule 5 Sig: Take 1 capsule by mouth once daily. Authorizing Provider: DUSTIN HOANG MD Spoke with granddaughter Meghan and gave results and instructions. She is ok with HCTZ. Pharmacy verified. Nurse is out of the office the soonest appointment was 02/2022 we scheduled patient. I asked Meghan if they have BP machine at home and she said yes and they are going to check it daily and send results in the first of next week. Charlie Bradley MA Let patient know I would like to add on a low dose of a water pill. HCTZ 12.5 mg a day. If ok will send in script. I would want a BP check in a week to make sure making some improvement. Also advise her if she gets a sever [place], chest pain, shortness of breath, numbness or weakness she needs to go to a local ER. Manual Readin Pulse: 51 BP Anil average: 197/85 P: 50 Repeat BP Check: 197/81 P49 #1 199/93 P50 #2 200/83 P50 #3 196/ P51 #4 P50 #5 P50 #6 Reason for blood pressure check - Last BP elevated and Medication adjustment Patient is: Taking medication as prescribed Yes Took medication today Yes If no, date medication last taken N/A Experiencing side effects No BP continued to be elevated at nurse visit 01/14/22. Lisinopril was increased to 40mg twice daily. Tolerating medication change well. Reports home readings ranging 140-160's/80-90's. Was stressed this morning with . Denies any chest pain, shortness of breath, or dizziness. Does have history of headaches. Daily caffeine use. Past personal history of tobacco use; passive exposure. Alert and oriented. Pt has been identified by name and birthdate: Yes Allergies reviewed: Yes Latex allergy: no. Medication - prescribed and OTC reviewed and updated: Yes Do you need any prescription refills prior to your next visit: No Health Maintenance: Reviewed and not up to date and provider notified Patient advised that she would be contacted after review by PCP. Shelley Taveras LPN At end of visit pt then states that she has been having a dull ache in chest over the last week. Will have some lightheadedness when these occur. Does not change with activity. Has also been having increased acid reflux as well; states that she would have that symptom at the same time as the chest discomfort. documented in this encounter [facility] 02-13-2022 History of Presen t illness Narrative Manual Readin Pulse: 51 BP Anil average: 197/85 P: 50 Repeat BP Check: P49 #1 199/93 P50 #2 200/83 P50 #3 / P51 #4 P50 #5 P50 #6 Reason for blood pressure check - Last BP elevated and Medication adjustment Patient is: Taking medication as prescribed Yes Took medication today Yes If no, date medication last taken N/A Experiencing side effects No BP continued to be elevated at nurse visit 01/14/22. Lisinopril was increased to 40mg twice daily. Tolerating medication change well. Reports home readings ranging 140-160's/80-90's. Was stressed this morning with . Denies any chest pain, shortness of breath, or dizziness. Does have history of headaches. Daily caffeine use. Past personal history of tobacco use; passive exposure. Alert and oriented. Pt has been identified by name and birthdate: Yes Allergies reviewed: Yes Latex allergy: no. Medication - prescribed and OTC reviewed and updated: Yes Do you need any prescription refills prior to your next visit: No Health Maintenance: Reviewed and not up to date and provider notified Patient advised that she would be contacted after review by PCP. Shelley Taveras LPN At end of visit pt then states that she has been having a dull ache in chest over the last week. Will have some lightheadedness when these occur. Does not change with activity. Has also been having increased acid reflux as well; states that she would have that symptom at the same time as the chest discomfort. documented in this encounter [facility] 01-15-2022 Miscellaneous Notes Pt's EC Meghan notified of Dr Yi's instructions. She verbalizes understanding. NV scheduled at this time. Abraham Donovan LPN Let patient know BP is higher then I would like to see it. Advise her to increase her lisinopril 40 mg to one pill twice a day. New script sent in. Needs NV BP check in 4 weeks. The following approved medication requests have been transmitted electronically. Signed Prescriptions Disp Refills lisinopril (ZESTRIL, PRINIVIL) 40 mg tablet 180 tablet 1 Sig: Take 1 tablet by mouth twice daily. JOHANA: No Authorizing Provider: DUSTIN HOANG MD Manual Readin/85 Pulse: 53 BP Anil average: 158/89 P: 53 Repeat BP Check: 174/89 P52 #1 166/83 P54 #2 157/88 P53 #3 148/83 P52 #4 144/87 P52 #5 160/101 P53 #6 Reason for blood pressure check - Last BP elevated Patient is: Taking medication as prescribed Yes Took medication today Yes If no, date medication last taken N/A Experiencing side effects No BP continued to be elevated at nurse visit 01/09/22. She had not had her medication that day. Has since taken with no problems. Denies any chest pain, unusual shortness of breath, or dizziness. Still has headaches. Daily caffeine use. Past personal history of tobacco use, current passive exposure. Alert and oriented. Pt has been identified by name and birthdate: Yes Allergies reviewed: Yes Latex allergy: no. Medication - prescribed and OTC reviewed and updated: Yes Do you need any prescription refills prior to your next visit: No Health Maintenance: Reviewed and not up to date and provider notified Patient advised that she would be contacted after review by PCP. Shelley Taveras LPN documented in this encounter [facility] 01-09-2022 History of Presen t illness Narrative Manual Readin/99 Pulse: 57 BP Anil average: 159/86 P: 54 Repeat BP Check: 185/80 P51 #1 131/87 P62 #2 155/85 P52 #3 162/90 P52 #4 161/87 P52 #5 160/88 P54 #6 Reason for blood pressure check - Last BP elevated Patient is: Taking medication as prescribed Yes Took medication today No If no, date medication last taken 01/08/22 Experiencing side effects No BP was elevated at last appt 12/19/21. No BP medication changes were made at that time. Taking all medications as prescribed. Has not had them yet this morning. States that home readings have been running in the 140-150's/80's. Denies any chest pain or unusual shortness of breath. States that she does get some random intermittent dizziness at times. Also reports headaches daily; will treat with Tylenol or NSAID. Daily caffeine use. Past personal history of tobacco use; current passive exposure. Alert and oriented. Pt has been identified by name and birthdate: Yes Allergies reviewed: Yes Latex allergy: no. Medication - prescribed and OTC reviewed and updated: Yes Do you need any prescription refills prior to your next visit: No Health Maintenance: Reviewed and not up to date and provider notified Patient advised that she would be contacted after review by PCP. Shelley Taveras LPN documented in this encounter [facility] 01-07-2022 Miscellaneous Notes Patient notified of results, verbalizes understanding of instructions. Samantha Luo MA Let patient know her repeat calcium level was ok but her parathyroid hormone level is slightly above normal at 70 (normal is 15-65). Would like to repeat both labs and Vit D level in a month. Orders placed. documented in this encounter [facility] 12-24-2021 Miscellaneous Notes Phoned patient and given provider's message below with verbalized understanding. Let patient know CBC, UA and Mg were ok. lipid panel showed trigs elevated at 183 (goal<150), HDL improved at 47 (goal>50 and was 43), LDL good at 75. Cont work on diet with reduced fat. A1c slight higher at 5.9% but not as high as it has been in the past. Cont to work on reduced carbs and starches in diet. B12 is slight;y low and would advise OTC B12 500 mcg's one a day. CMP was ok except for slightly elevated calcium. I want to repeat lab this week. Order placed. documented in this encounter [facility] 12-19-2021 Nurse Note BP documented in this encounter [facility] 12-19-2021 Instructions Dustin Hoang MD - 12/19/2021 10:24 AM EDT Consider getting the shingrix vaccine for the prevention of shingles from a local pharmacy Please bring in copies of living will and durable power of claims attorney documented in this encounter [facility] 12-19-2021 History of Presen t illness Narrative Medicare Visit Medical B eligibility date 03/09/2004 Date of last exam 04/17/2020 PAST MEDICAL HISTORY PAST MEDICAL HISTORY Diagnosis Date Acute gastritis without mention of hemorrhage 03/30/2009 Age-related cataract 08/07/2018 Arthritis of both knees 02/05/2018 Backache, unspecified 02/17/2009 Chronic pain of both knees 02/05/2018 Diverticulosis of colon (without mention of hemorrhage) Elevated hemoglobin A1c 08/09/2018 Essential hypertension 02/05/2015 Ex-smoker 02/01/2009 Started at age 16 up to 1 PPD, quit 2014 Family history of malignant neoplasm of gastrointestinal tract GERD (gastroesophageal reflux disease) 02/05/2015 EGD (negative Browning's) Hypoglycemia, unspecified Hypoglycemia Irritable bowel disease 02/01/2009 Macular degeneration 08/07/2018 Left Mixed hyperlipidemia 10/14/2006 Osteoarth NOS-other site 10/09/2006 Overactive bladder 08/07/2018 PAST SURGICAL HISTORY PAST SURGICAL HISTORY Procedure Laterality Date *STRESS TEST PC 05/27/2017 normal 2D ECHO (EXEP) 05/27/2017 EF=70%, mild LVH, no significant valvue issues ANTER COLPORRHAPHY,BLAD/VAGINA Cystocele repair, x2 CATARACT EXTRACTION HX Left 2011 COLONOSCOP W/ OR W/O BRSH SPEC 03/30/09 EGD W/O BRSH SPECIMEN W/BX 03/30/09 FECAL OCCULT BLOOD TEST 05/12/2017 negative REMV CATARACT EXTRACAP,INSERT LENS Right 06/2019 Cataract Extraction with PC IOL TOTAL ABDOM HYSTERECTOMY 1969' Hysterectomy, RAY Adhesive Tape (Rosins) and Codeine Medications reviewed: Yes FAMILY HISTORY FAMILY HISTORY Problem Relation Age of Onset Diabetes Mother Emphysema Mother Cancer Mother skin Colon Cancer Father liver cancer Diabetes Father SOCIAL HISTORY: SOCIAL HISTORY Social History Tobacco Use Smoking status: Former Smoker Packs/day: 1.00 Years: 55.00 Pack years: 55.00 Types: Cigarettes Quit date: 08/13/2014 Years since quittin.6 Smokeless tobacco: Never Used Substance Use Topics Alcohol use: No Drug use: No Nidhi denies regular aerobic exercise. She watches her diet for sodium, low fat and low cholesterol some of the time. List of current specialists seen: Ophthalmology End of Live Planning discussed including patients advanced directive wishes: Yes I am willing to follow Nidhi's advanced directives. PHQ-2 / Depression screen Depression Screening 02/13/2016 05/09/2017 08/07/2018 12/19/2021 PHQ-2 Score 0 0 0 0 Depression screening tool completed and reviewed. Based on score and interview, patient is not at risk for depression. Screening tool discussed with patient, and I recommended no further intervention at this time. Functional Ability/Safety Screen 1. Was the patient's timed Up and Go test unsteady or longer than 30 seconds? Yes 2. Does the patient need help with the phone, transportation, shopping,preparing meals, housework, laundry, medications or managing money? Yes - driving but otherwise independent 3. Does your home have rugs in the hallway (Y), lack of grab bars in the bathroom, lack of handrails on the stairs or have poor lighting? No Hearing Evaluation: normal PHYSICAL EXAM BP 160/98 (BP Site: Left Arm, BP Position: Sitting, BP Cuff Size: Regular Adult) Pulse 60 Resp 16 Wt 74.4 kg (164 lb) BMI 29.05 kg/m Alert and oriented X 3: YES Body mass index is 29.05 kg/m . Sees Ophthalmology ASSESSMENT/PLAN: 81 year old female The following prevention plan was discussed during the office visit and provided to the patient: See below Chief Complaint Patient presents with: Medicare Wellness Exam HPI Nidhi Núñez is a 81 year old female who presents here today for extensivel Visit. Patient with hx of HTN, HLP, GERD, elevate a1c, OAB, and those as below Patient has bene doing ok. No new issues or concerns Past medical history, appointments, medications, allergies reviewed. Previous Medical History PAST MEDICAL HISTORY Diagnosis Date Acute gastritis without mention of hemorrhage 03/30/2009 Age-related cataract 08/07/2018 Arthritis of both knees 02/05/2018 Backache, unspecified 02/17/2009 Chronic pain of both knees 02/05/2018 Diverticulosis of colon (without mention of hemorrhage) Elevated hemoglobin A1c 08/09/2018 Essential hypertension 02/05/2015 Ex-smoker 02/01/2009 Started at age 16 up to 1 PPD, quit 2014 Family history of malignant neoplasm of gastrointestinal tract GERD (gastroesophageal reflux disease) 02/05/2015 EGD (negative Browning's) Hypoglycemia, unspecified Hypoglycemia Irritable bowel disease 02/01/2009 Macular degeneration 08/07/2018 Left Mixed hyperlipidemia 10/14/2006 Osteoarth NOS-other site 10/09/2006 Overactive bladder 08/07/2018 Previous Surgical History PAST SURGICAL HISTORY Procedure Laterality Date *STRESS TEST PC 05/27/2017 normal 2D ECHO (EXEP) 05/27/2017 EF=70%, mild LVH, no significant valvue issues ANTERIOR COLPORRAPHY RPR CYSTOCELE W/CYSTO Cystocele repair, x2 CATARACT EXTRACTION HX Left 2011 COLONOSCOPY FLX DX W/COLLJ SPEC WHEN PFRMD 03/30/09 EGD TRANSORAL BIOPSY SINGLE/MULTIPLE 03/30/09 FECAL OCCULT BLOOD TEST 05/12/2017 negative TOTAL ABDOMINAL HYSTERECT W/WO RMVL TUBE OVARY 1970's Hysterectomy, RAY XCAPSL CTRC RMVL INSJ IO LENS PROSTH W/O ECP Right 06/2019 Cataract Extraction with PC IOL Family History FAMILY HISTORY Problem Relation Age of Onset Diabetes Mother Emphysema Mother Cancer Mother skin Colon Cancer Father liver cancer Diabetes Father Patient Allergies ALLERGIES Allergen Reactions Adhesive Tape (Jeannette* Rash Codeine GI Upset Current Medications Current Outpatient Medications on File Prior to Visit Medication Sig lisinopril (ZESTRIL, PRINIVIL) 40 mg tablet Take 1.5 tablets by mouth once daily. rosuvastatin (CRESTOR) 20 mg tablet Take 1 tablet by mouth daily at bedtime. metoprolol succinate ER (TOPROL XL) 100 mg Take 1 tablet by mouth once daily. omeprazole (PRILOSEC) 20 mg capsule Take 1 capsule by mouth daily before breakfast. 1/2 hr before meal. nystatin (MYCOSTATIN) powder Apply 1 application to affected area twice daily. meloxicam (MOBIC) 15 mg tablet TAKE 0.5-1 TABLETS BY MOUTH ONCE DAILY NEEDED. diclofenac (VOLTAREN) 1 % topical gel APPLY 2 GRAMS TO AFFECTED AREA FOUR TIMES DAILY. vit A/vit C/vit E/zinc/copper (OCUVITE PRESERVISION ORAL) Take by mouth twice daily. No current facility-administered medications on file prior to visit. Social History Social History Tobacco Use Smoking status: Former Smoker Packs/day: 1.00 Years: 55.00 Pack years: 55.00 Types: Cigarettes Quit date: 08/13/2014 Years since quittin.3 Smokeless tobacco: Never Used Vaping Use Vaping Use: Never used Substance Use Topics Alcohol use: No Drug use: No Review of Symptoms REVIEW OF SYSTEMS GENERAL: No weight loss, malaise or fevers HEENT: has headaches three times a week. Affected by lighting. No changes in no nose bleeds or other nasal problems. Having vision loss in the left with her macular degeneration. Sometimes not hearing as well. NECK: Negative for lumps, goiter, pain and significant neck swelling RESPIRATORY: Negative for cough, hemoptysis. On occasion has slight shortness of breath and wheezing. This has been stable for several years. CARDIOVASCULAR: patient has been getting some chest pain (typically at rest), increased leg swelling on the right and palpitations. GI: No nausea, vomiting, or diarrhea, No heartburn or reflux symptoms and no blood : No history of dysuria, blood. Has an over active bladder. Does not remember why she is off the Detrol LA. MUSCULOSKELETAL: Negative for new or change in her typical joint pain or swelling, back pain or muscle pain SKIN: Negative for lesions, rash, and itching PSYCH: Negative for sleep disturbance, mood disorder and recent psychosocial stressors HEMATOLOGY/LYMPHOLOGY: Negative for prolonged bleeding, bruising easily or swollen nodes ENDOCRINE: Negative for cold or heat intolerance, polyuria, and goiter NEURO: No history of headaches, syncope, paralysis, seizures or tremors EXAM: BP 160/98 (BP Site: Left Arm, BP Position: Sitting, BP Cuff Size: Regular Adult) Pulse 60 Resp 16 Wt 74.4 kg (164 lb) BMI 29.05 kg/m BP 152/77 Pulse 60 Resp 16 Wt 74.4 kg (164 lb) BMI 29.05 kg/m Last 5 Encounter Wt Readings: Date: Wt: 12/19/2021 74.4 kg (164 lb) 10/30/2021 74.8 kg (165 lb) 06/19/2021 73.5 kg (162 lb) 11/08/2020 76.7 kg (169 lb) 10/27/2020 76.7 kg (169 lb) General Appearance: Well appearing, alert, in no acute distress, well-hydrated, well nourished.. Skin: Skin color, texture, turgor normal, no suspicious rashes. Has a scaly lesion on the upper mid back, suspected AK Head: Normocephalic, no masses, lesions, tenderness or abnormalities. Eyes: Anicteric sclera. Pupils are equally round and reactive to light. Extraocular movements are intact. . Ears: External ears, TM's normal, canals clear. Neck: Supple, no adenopathy; thyroid symmetric, normal size, no bruits. Lungs: Lungs clear to auscultation. No wheezing, rhonchi, rales.. Heart: RRR without murmur, gallop, or rubs. No ectopy. Abdomen: Normal abdominal exam, Abdomen soft, non-tender. Bowel sounds normal. No masses, organomegaly. Extremities: No deformities, edema, skin discoloration, clubbing or cyanosis. . Musculoskeletal: Muscular strength intact, No joint swelling, deformity, or tenderness. Peripheral Pulses: Normal. Neurologic: Gait normal. Reflexes normal and symmetric. Sensation to light touchy and crainal nerves 2-12 intact.. Health Maintenance List DTAP,TDAP,TD(1 - Tdap) Never done SHINGRIX VACCINE(1 of 2) Never done ADVANCE DIRECTIVE DISCUSSION Never done COVID-19 VACCINE(4 - Booster for Pfizer series) due on 07/29/2021 INFLUENZA(1) due on 02/07/2022 DIABETES SCREEN due on 06/19/2024 BONE DENSITY Completed PNEUMOCOCCAL: 65+ Completed Data reviewed Component Latest Ref Rng & Units 06/19/2021 WBC 3.70 - 11.00 k/uL 6.61 RBC 3.90 - 5.20 m/uL 5.01 Hemoglobin 11.5 - 15.5 g/dL 14.3 Hematocrit 36.0 - 46.0 % 44.4 MCV 80.0 - 100.0 fL 88.6 MCH 26.0 - 34.0 pG 28.5 MCHC 30.5 - 36.0 g/dL 32.2 RDW-CV 11.5 - 15.0 % 13.2 Platelet Count 150 - 400 k/uL 262 MPV 9.0 - 12.7 fL 10.4 Neut% % 52.6 Abs Neut (ANC) 1.45 - 7.50 k/uL 3.46 Lymph% % 27.7 Abs Lymph 1.00 - 4.00 k/uL 1.83 [place]% % 9.5 Abs [place] <0.87 k/uL 0.63 Eosin% % 9.4 Abs Eosin <0.46 k/uL 0.62 (H) Baso% % 0.8 Abs Baso <0.11 k/uL 0.05 Nucleated Reds 0 /100 WBC 0.0 Absolute nRBC <0.01 k/uL <0.01 Diff Type Auto Diff Protein, Total 6.3 - 8.0 g/dL 7.1 Albumin 3.9 - 4.9 g/dL 4.6 Calcium 8.5 - 10.2 mg/dL 10.0 Bilirubin, Total 0.2 - 1.3 mg/dL 0.7 Alkaline Phosphatase 34 - 123 U/L 48 AST 13 - 35 U/L 20 Glucose 74 - 99 mg/dL 89 BUN 7 - 21 mg/dL 18 Creatinine 0.58 - 0.96 mg/dL 0.88 Sodium 136 - 144 mmol/L 140 Potassium 3.7 - 5.1 mmol/L 4.2 Chloride 97 - 105 mmol/L 103 CO2 22 - 30 mmol/L 26 Anion Gap 9 - 18 mmol/L 11 ALT 7 - 38 U/L 11 eGFR- >60 eGFR-All Other Races . >60 Total Cholesterol, Nonfasting <200 mg/dL 146 Triglycerides, Nonfasting <150 mg/dL 203 (H) HDL Cholesterol, Nonfasting >39 mg/dL 43 LDL Cholesterol, Nonfasting <100 mg/dL 62 Non HDL Cholesterol, Nonfasting <130 mg/dL 103 VLDL Cholesterol, Nonfasting <30 mg/dL 41 (H) Total Chol/HDL Ratio, Nonfasting <5.10 mg/dL 3.40 LDL/HDL Ratio, Nonfasting <2.54 mg/dL 1.44 Hemoglobin A1C 4.3 - 5.6 % 5.8 (H) Estimated Average Glucose mg/dL 120 A/P ASSESSMENT/PLAN: 1. Medicare annual wellness visit, subsequent - ICD9: V70.0, ICD10: Z00.00 (primary diagnosis) - Counseled on healthy diet and regular exercise - Calcium intake with supplements or by diet of 1000 mg/day for under 50, 4110-3990 mg/day for 50+ - Follow up for annual exam in one year 2. Essential hypertension - ICD9: 401.9, ICD10: I10 - suboptimal control - Continue current medication(s) - Recommended regular aerobic exercise. - Recommend home blood pressure monitoring, to bring results in on next visit - Goal of BP <130/80 - NV BP check in 3 weeks Check - COMP METABOLIC PANEL - URINALYSIS, WITH MICROSCOPIC - LIPID PANEL, NONFASTING 3. Mixed hyperlipidemia - ICD9: 272.2, ICD10: E78.2 - to be determined upon return of lab results - Encouraged following a low fat, low cholesterol diet. - Discussed the benefits of regular aerobic exercise and weight loss. - Encouraged following a low carbohydrate, healthy oil intake diet. - Continue current therapy. Check - COMP METABOLIC PANEL - URINALYSIS, WITH MICROSCOPIC - LIPID PANEL, NONFASTING 4. Elevated hemoglobin A1c - ICD9: 790.29, ICD10: R73.09 Check - HGB A1C 5. Gastroesophageal reflux disease without esophagitis - ICD9: 530.81, ICD10: K21.9 - Continue treatment with Prilosec 20 mg every day Check - VITAMIN B12 BLOOD - MAGNESIUM BLD 6. Irritable bowel syndrome, unspecified type - ICD9: 564.1, ICD10: K58.9 - Clinically stable 7. Overactive bladder - ICD9: 596.51, ICD10: N32.81 - Will retry: TOLTERODINE ER 4 MG CAPSULE,EXTENDED RELEASE 24 HR 8. AK (actinic keratosis) - ICD9: 702.0, ICD10: L57.0 - discussed cryo and verbal consent given. Area treated with 40 sec thaw phase and patient tolerated well. 9. Chronic pain syndrome - ICD9: 338.4, ICD10: G89.4 - Seeing pain management. 10. Medication management - ICD9: V58.69, ICD10: Z79.899 Check - VITAMIN B12 BLOOD - MAGNESIUM BLD - CBC + DIFF 11. Advance directive discussed with patient - ICD9: V65.49, ICD10: Z71.89 - advidsed to bring in copies 12. Living will in place - ICD9: V49.89, ICD10: Z78.9 - As per #11 F/u 6 months routine I spent a total of 40 minutes on the date of the service which included preparing to see the patient, [id number] patient care, completing clinical documentation, performing a medically appropriate examination, counseling and educating the patient/family/caregiver and ordering medications, tests, or procedures. Dustin Hoang MD documented in this encounter [facility] 11-09-2021 Miscellaneous Notes Patient phones requesting refills as follows: Pending Prescriptions Disp Refills ROSUVASTATIN 20 MG TABLET 90 tablet 1 Sig: Take 1 tablet by mouth daily at bedtime. JOHANA: No METOPROLOL SUCCINATE ER 100 MG TABLET,EXTENDED RELEASE 24 HR 30 tablet 5 Sig: Take 1 tablet by mouth once daily. JOHANA: No JOSEPH-06/19/21 Labs-06/19/21 NOV-12/19/21 Please review and advise. Marjorie Mabry LPN documented in this encounter [facility] 11-08-2021 Miscellaneous Notes Patient has been identified by name and date of : Yes Pending Prescriptions Disp Refills LISINOPRIL 40 MG TABLET 135 tablet 1 Sig: Take 1.5 tablets by mouth once daily. JOHANA: No Lisinopril 04/20/2021 qty 135 w/1 r/f Last OV 06/19/2021 Labs 06/19/2021 Next OV 12/19/2021 RX INSTRUCTIONS: Eusebia Turner LPN documented in this encounter [facility] 11-03-2021 Miscellaneous Notes Phone call placed detailed message left on (Meghan's identified voicemail, listed on chart) (see prior provider encounter) Eusebia Turner LPN documented in this encounter [facility] 11-02-2021 Miscellaneous Notes I spoke to Meghan, rash is very itchy. I advised that she does not need to continue the Valtrex but should continue with the topical cream, if rash is not improving, follow up with PCP. Iram Leon APRN.LISA Phone call placed spoke to (Meghan listed on chart) advised (see prior provider encounter) Meghan verbalized understanding, inquired with a negative Shingles Dx should the patient take Valtrex? Eusebia Turner LPN ----- Message from Iram Leon APRN.BUNDLER sent at 11/02/2021 4:23 PM EDT ----- Please advise patient the wound culture did not grow any bacteria. Herpes and shingles test was negative. Iram Leon APRN.BUNDLER documented in this encounter [facility] 10-31-2021 Miscellaneous Notes Spoke with pt and information listed below given. Pt verbalizes understanding. Jenny Turner LPN Left message with patient to return call. Negative for herpes and no growth so far on the wound culture. Will notify when the final culture come back. Thank you. If symptoms worsen follow up with PCP. documented in this encounter [facility] 10-30-2021 History of Presen t illness Narrative Images from the original note were not included. This note was created using [employer]Be[employer]. Subjective Nidhi Núñez is a 81 year old female. HPI Patient presents with a rash on her face over the past 3 days. Is on her right cheek and neck. She denies any eye pain or redness. No drainage. Starting to weep and crusts. She did put hand programming specialist on her face trying to dry it out. She did have shingles she thinks over 5 years ago. This felt very similar to her. No fever or chills. No other new exposures that she can think of other than she did do some gardening. No rash anywhere else. Review of Systems Skin: Positive for rash. All other systems reviewed and are negative. PAST MEDICAL HISTORY Diagnosis Date Acute gastritis without mention of hemorrhage 03/30/2009 Age-related cataract 08/07/2018 Arthritis of both knees 02/05/2018 Backache, unspecified 02/17/2009 Chronic pain of both knees 02/05/2018 Diverticulosis of colon (without mention of hemorrhage) Elevated hemoglobin A1c 08/09/2018 Essential hypertension 02/05/2015 Ex-smoker 02/01/2009 Started at age 16 up to 1 PPD, quit 2014 Family history of malignant neoplasm of gastrointestinal tract GERD (gastroesophageal reflux disease) 02/05/2015 EGD (negative [facility]) Hypoglycemia, unspecified Hypoglycemia Irritable bowel disease 02/01/2009 Macular degeneration 08/07/2018 Left Mixed hyperlipidemia 10/14/2006 Osteoarth NOS-other site 10/09/2006 Overactive bladder 08/07/2018 Current Outpatient Medications Medication Sig Dispense Refill rosuvastatin (CRESTOR) 20 mg tablet Take 1 tablet by mouth daily at bedtime. 90 tablet 1 metoprolol succinate ER (TOPROL XL) 100 mg Take 1 tablet by mouth once daily. 30 tablet 5 omeprazole (PRILOSEC) 20 mg capsule Take 1 capsule by mouth daily before breakfast. 1/2 hr before meal. 30 capsule 5 nystatin (MYCOSTATIN) powder Apply 1 application to affected area twice daily. 60 g 2 lisinopril (ZESTRIL, PRINIVIL) 40 mg tablet Take 1.5 tablets by mouth once daily. 135 tablet 1 meloxicam (MOBIC) 15 mg tablet TAKE 0.5-1 TABLETS BY MOUTH ONCE DAILY NEEDED. 30 tablet 1 diclofenac (VOLTAREN) 1 % topical gel APPLY 2 GRAMS TO AFFECTED AREA FOUR TIMES DAILY. 200 g 1 vit A/vit C/vit E/zinc/copper (OCUVITE PRESERVISION ORAL) Take by mouth twice daily. valACYclovir (VALTREX) 1 gram Take 1 tablet by mouth twice daily for 7 days. 14 tablet 0 hydrocortisone 2.5 % cream Apply 1 application to affected area twice daily for 7 days. Location: rash 28 g 0 No current facility-administered medications for this visit. PAST SURGICAL HISTORY Procedure Laterality Date *STRESS TEST PC 05/27/2017 normal 2D ECHO (EXEP) 05/27/2017 EF=70%, mild LVH, no significant valvue issues ANTERIOR COLPORRAPHY RPR CYSTOCELE W/CYSTO Cystocele repair, x2 CATARACT EXTRACTION HX Left 2011 COLONOSCOPY FLX DX W/COLLJ SPEC WHEN PFRMD 03/30/09 EGD TRANSORAL BIOPSY SINGLE/MULTIPLE 03/30/09 FECAL OCCULT BLOOD TEST 05/12/2017 negative TOTAL ABDOMINAL HYSTERECT W/WO RMVL TUBE OVARY 1969's Hysterectomy, RAY XCAPSL CTRC RMVL INSJ IO LENS PROSTH W/O ECP Right 06/2019 Cataract Extraction with PC IOL FAMILY HISTORY Problem Relation Age of Onset Diabetes Mother Emphysema Mother Cancer Mother skin Colon Cancer Father liver cancer Diabetes Father Social History Tobacco Use Smoking status: Former Smoker Packs/day: 1.00 Years: 55.00 Pack years: 55.00 Types: Cigarettes Quit date: 08/13/2014 Years since quittin.2 Smokeless tobacco: Never Used Vaping Use Vaping Use: Never used Substance Use Topics Alcohol use: No Drug use: No Objective BP 132/80 Pulse 62 Temp 36.1 C (96.9 F) Resp 16 Wt 74.8 kg (165 lb) SpO2 96% BMI 29.23 kg/m Physical Exam Vitals reviewed. Constitutional: Appearance: Normal appearance. HENT: Head: Atraumatic. Comments: Vesicular weeping crusting rash on the right cheek and right neck. No lesions around the eye or any eye involvement visualized. No signs of secondary cellulitis. Neurological: Mental Status: She is alert. Assessment and Plan ASSESSMENT/PLAN: 1. Facial rash - ICD9: 782.1, ICD10: R21 Likely shingles. I did swab this. Given Valtrex and topical hydrocortisone. Discussed not using the hydrocortisone past week. Discussed if it changes significantly or not improving to follow-up with PCP. Patient agreeable. Discussed the contagiousness of shingles. - HSV 1,2/VZV AMP MOLECULAR DETECT - WOUND CULTURE AND GRAM STAIN Flores Peters PA-C documented in this encounter [facility] Evaluation note Diagnosis Facial rash- Primary Rash and other nonspecific skin eruption [facility] Diagnosis Mixed hyperlipidemia Essential hypertension Unspecified essential hypertension [facility] Essential hypertension Unspecified essential hypertension [facility] Medicare annual wellness visit, subsequent- Primary Routine general medical examination at a health care facility Essential hypertension Unspecified essential hypertension Mixed hyperlipidemia Elevated hemoglobin A1c Other abnormal blood chemistry Gastroesophageal reflux disease without esophagitis Esophageal reflux Irritable bowel syndrome, unspecified type Overactive bladder Hypertonicity of bladder AK (actinic keratosis) Actinic keratosis Chronic pain syndrome Medication management Encounter for long-term (current) use of other medications Advance directive discussed with patient Other specified counseling Living will in place [facility] Diagnosis Hypercalcemia- Primary Low serum vitamin B12 [facility] Diagnosis Hypercalcemia- Primary [facility] Diagnosis Essential hypertension- Primary Unspecified essential hypertension [facility] Diagnosis Essential hypertension Unspecified essential hypertension [facility] Diagnosis Essential hypertension- Primary Unspecified essential hypertension [facility] Diagnosis Essential hypertension- Primary Unspecified essential hypertension [facility] Diagnosis Overactive bladder Hypertonicity of bladder [facility] Diagnosis Mixed hyperlipidemia Essential hypertension Unspecified essential hypertension [facility] Diagnosis Epigastric pain- Primary Abdominal pain, epigastric Gastroesophageal reflux disease without esophagitis Esophageal reflux Essential hypertension Unspecified essential hypertension Mixed hyperlipidemia Low serum vitamin B12 Hypercalcemia Elevated hemoglobin A1c Other abnormal blood chemistry Lumbar pain Lumbago Thoracic spine pain Pain in thoracic spine Numbness and tingling of right leg Disturbance of skin sensation Balance problems Other symptoms involving nervous and musculoskeletal systems documented in this encounter [facility] note* Diagnosis Hydronephrosis, unspecified hydronephrosis type- Primary Dilation of biliary tract Other specified disorders of biliary tract [facility]* Diagnosis Chest pain, unspecified type- Primary Essential hypertension Unspecified essential hypertension documented in this encounter [facility] note* Diagnosis Epigastric pain- Primary Abdominal pain, epigastric documented in this encounter [facility] note* Diagnosis Overactive bladder Hypertonicity of bladder [facility]* Diagnosis Elevated serum creatinine- Primary Other nonspecific findings on examination of blood documented in this encounter [facility] note* Diagnosis Onset Date Resolution Status Bloating chronic [facility] Work Phone: Evaluation note* Diagnosis Essential hypertension- Primary Unspecified essential hypertension Mixed hyperlipidemia Gastroesophageal reflux disease without esophagitis Esophageal reflux Elevated hemoglobin A1c Other abnormal blood chemistry Low serum vitamin B12 Angina pectoris (HCC) Other and unspecified angina pectoris SOB (shortness of breath) Shortness of breath Palpitations Encounter for immunization Need for other specified prophylactic vaccination against single bacterial disease Advance directive discussed with patient Other specified counseling Medication management Encounter for long-term (current) use of other medications Stage 3a chronic kidney disease (HCC) [facility] Diagnosis Essential hypertension Unspecified essential hypertension [facility]* Diagnosis Essential hypertension Unspecified essential hypertension [facility]* Diagnosis Overactive bladder Hypertonicity of bladder documented in this encounter [facility] note* Diagnosis Essential hypertension Unspecified essential hypertension [facility]* Diagnosis Hydronephrosis, unspecified hydronephrosis type Dilation of biliary tract Other specified disorders of biliary tract documented in this encounter [facility] note* Diagnosis Epigastric pain Abdominal pain, epigastric [facility]* Diagnosis Rash- Primary Rash and other nonspecific skin eruption Acute cough [facility] Diagnosis Mixed hyperlipidemia [facility]* Diagnosis Mixed hyperlipidemia [facility]* Diagnosis Essential hypertension Unspecified essential hypertension [facility]* Diagnosis Overactive bladder Hypertonicity of bladder [facility] Diagnosis Essential hypertension Unspecified essential hypertension [facility]* Diagnosis MONTGOMERY (dyspnea on exertion) Other dyspnea and respiratory abnormality Decreased stamina Other malaise and fatigue Ex-smoker Personal history of tobacco use, presenting hazards to health [facility]* Diagnosis Essential hypertension- Primary Unspecified essential hypertension Mixed hyperlipidemia Elevated hemoglobin A1c Other abnormal blood chemistry Stage 3a chronic kidney disease (HCC) Gastroesophageal reflux disease without esophagitis Esophageal reflux Low serum vitamin B12 PAC (premature atrial contraction) Supraventricular premature beats Celiac disease Overactive bladder Hypertonicity of bladder Chest pressure Other chest pain MONTGOMERY (dyspnea on exertion) Other dyspnea and respiratory abnormality Decreased stamina Other malaise and fatigue Ex-smoker Personal history of tobacco use, presenting hazards to health Ataxia Lack of coordination Headache, unspecified headache type Dizziness Dizziness and giddiness Encounter for screening for cardiovascular disorders Screening for other and unspecified cardiovascular conditions Medication management Encounter for long-term (current) use of other medications Ataxia Lack of coordination Headache, unspecified headache type [facility]* Diagnosis Ataxia Lack of coordination Headache, unspecified headache type [facility] Diagnosis Essential hypertension- Primary Unspecified essential hypertension M[place]GOMERY (dyspnea on exertion) Other dyspnea and respiratory abnormality Chest pain, unspecified type Dizziness Dizziness and giddiness [facility]* Diagnosis MONTGOMERY (dyspnea on exertion)- Primary Other dyspnea and respiratory abnormality [facility]* Diagnosis Chest pressure Other chest pain MONTGOMERY (dyspnea on exertion) Other dyspnea and respiratory abnormality Decreased stamina Other malaise and fatigue Ex-smoker Personal history of tobacco use, presenting hazards to health [facility]* Diagnosis Overactive bladder Hypertonicity of bladder [facility]* Diagnosis Essential hypertension Unspecified essential hypertension documented in this encounter [facility] note* Diagnosis Acute cough documented in this encounter [facility] note* Diagnosis Essential hypertension Unspecified essential hypertension documented in this encounter [facility] note* Diagnosis Essential hypertension Unspecified essential hypertension Mixed hyperlipidemia documented in this encounter [facility] note* Diagnosis Advance directive discussed with patient- Primary Other specified counseling Screening for depression Encounter for screening examination for other mental health and behavioral disorders Medicare annual wellness visit, subsequent Routine general medical examination at a [facility] care facility Seasonal allergies Allergic rhinitis, cause unspecified Essential hypertension Unspecified essential hypertension Mixed hyperlipidemia Overactive bladder Hypertonicity of bladder Elevated hemoglobin A1c Other abnormal blood chemistry Stage 3a chronic kidney disease (HCC) Low serum vitamin B12 Gastroesophageal reflux disease without esophagitis Esophageal reflux PAC (premature atrial contraction) Supraventricular premature beats documented in this encounter [facility] note* Diagnosis Abnormal urinalysis- Primary Other nonspecific finding on examination of urine documented in this encounter [facility] note* Diagnosis Abnormal urinalysis- Primary Other nonspecific finding on examination of urine Urinary tract infection without hematuria, site unspecified documented in this encounter [facility] note* Diagnosis Overactive bladder Hypertonicity of bladder Essential hypertension Unspecified essential hypertension documented in this encounter [facility] note* Diagnosis Essential hypertension Unspecified essential hypertension documented in this encounter [facility] for referral (narrative)* Diagnostic Procedure Only (Routine) - Authorized Specialty Diagnoses / Procedures Referred By Royal celis Referred To Contact US IMAGING Diagnoses Epigastric pain Procedures US ABD RT UPPER QUADRANT US ABDOMINAL REAL TIME W/IMAGE LIMITED Dustin Hoang MD [address] [place] [id number] [facility] Imaging Referral ID Status Reason Start Date Expiration Date Visits Requested Visits Authorized [id number] Authorized Auto-Generat ed Referral 07/25/2022 08/24/2023 1 1 * Consult, Test, Treat (Routine) - Pending Review Specialty Diagnoses / Procedures Referred By Royal celis Referred To Contact Orthopedics Diagnoses Lumbar pain Thoracic spine pain Numbness and tingling of right leg Balance problems Procedures CONSULT TO ORTHOPAEDICS OFFICE/OUTPATIENT [facility] 60-74 MINUTES Dustin Hoang MD [address] [place] [address] Referral ID Status Reason Start Date Expiration Date Visits Requested Visits Authorized [id number] Pending Review PCP Requested Referral 07/25/2022 07/25/2023 1 1 [facility] for referral (narrative)* Outpatient Procedure (Routine) - Pending Review Specialty Diagnoses / Procedures [facility] Diagnoses Chest pain, unspecified type Procedures ECG COMPLETE ECG ROUTINE ECG W/LEAST 12 LDS W/I&R Shakeel Collins APRN.CNP [address] [place] [address] [facility] [place] [address] Referral ID Status Reason Start Date Expiration Date Visits Requested Visits Authorized [id number] Pending Review Auto-Generat ed Referral 08/15/2022 08/15/2023 1 1 [facility] for referral (narrative)* Diagnostic Procedure Only (Urgent) - Authorized Specialty Diagnoses / Procedures [facility] Ref[facility] To Contact MOLECULAR & FUNCTIONAL IMAGING Diagnoses Angina pectoris (HCC) SOB (shortness of breath) Palpitations Procedures NM CARDIAC PERF STRESS/PHARM MYOCARDIAL SPECT MULTIPLE STUDIES Dustin Hoang MD [address] [place] [address] Molecular & Functional Imaging [address] [place] [address] Referral ID Status Reason Start Date Expiration Date Visits Requested Visits Authorized [id number] Authorized Auto-Generat ed Referral 11/20/2022 12/20/2023 1 1 [facility] for referral (narrative)* Diagnostic Procedure Only (Routine) - Closed Specialty Diagnoses / Procedures [facility] Ref[facility] To Contact US IMAGING Diagnoses Epigastric pain Procedures US ABD RT UPPER QUADRANT US ABDOMINAL REAL TIME W/IMAGE LIMITED Dustin Hoang MD [address] [place] [address] [place] [address] Referral ID Status Reason Start Date Expiration Date V isits Requested Visits Authorized [id number] Closed Auto-Generate d Referral 07/25/2022 08/24/2023 1 1 [facility] for referral (narrative)* Outpatient Procedure (Routine) - Authorized Specialty Diagnoses / Procedures Referred By [facility] t Referred To Contact [facility] Diagnoses Dizziness Procedures US CAROTID ARTERIES [facility] DUPLEX SCAN EXTRACRANIAL ART COMPL BI STUDY Dustin Hoang MD [address] [place] [address] [facility] [place] [address] [place] [id number] Referral ID Status Reason Start Date Expiration Date Visits Requested Visits Authorized [id number] Authorized Auto-Generat ed Referral 11/21/2023 11/20/2024 1 1 * MRI/CT (Routine) - Closed Specialty Diagnoses / Procedures Referred By Royal Referred To Contact CT IMAGING Diagnoses Ataxia Headache, unspecified headache type Procedures CT BRAIN WO IVCON CT HEAD/BRAIN W/O CONTRAST MATERIAL Dustin Hoang MD [address] [place] [address] Ct Imaging [id number] Referral ID Status Reason Start Date Expiration Date V isits Requested Visits Authorized [id number] Closed Auto-Generat ed Referral Patient Cleared - Admin/Chairm an/Director advise to proceed or did not respond 11/24/2023 06/08/2024 1 1 * Diagnostic Procedure Only (Routine) - Authorized Specialty Diagnoses / Procedures Referred By Royal celis Referred To Contact MOLECULAR & FUNCTIONAL IMAGING Diagnoses Essential hypertension Chest pressure [place] (dyspnea on exertion) Decreased stamina Encounter for screening for cardiovascular disorders Procedures NM CARDIAC PERF STRESS/PHARM MYOCARDIAL SPECT MULTIPLE STUDIES Dustin Hoang MD [address] [place] [address] Molecular [facility] Functional Imaging [address] [place] [id number] Referral ID Status Reason Start Date Expiration Date Visits Requested Visits Authorized [id number] Authorized Auto-Generat ed Referral 11/21/2023 12/20/2024 1 1 * Outpatient Procedure (Routine) - Pending Review Specialty Diagnoses / Procedures [facility] To Contact [facility] [place] Diagnoses Chest pressure [place] (dyspnea on exertion) Procedures ECG COMPLETE ECG ROUTINE ECG W/LEAST 12 LDS W/I&R Dustin Hoang MD [address] [place] [address] [facility] [address] [address] Referral ID Status Reason Start Date Expiration Date Visits Requested Visits Authorized [id number] Pending Review Auto-Generat ed Referral 11/21/2023 11/20/2024 1 1 * Outpatient Procedure (Routine) - Closed Specialty Diagnoses / Procedures [facility] Diagnoses [place] (dyspnea on exertion) Decreased stamina Ex-smoker Procedures SPIROMETRY - BASELINE AND POST DILATOR BRNCDILAT RSPSE SPMTRY PRE&POST-BRNCDILAT ADMN Dustin Hoang MD [address] [place] [address] [facility] [place] [address] [place] [id number] Referral ID Status Reason Start Date Expiration Date V isits Requested Visits Authorized [id number] Closed Auto-Generate d Referral 11/21/2023 12/20/2024 1 1 * Outpatient Procedure (Routine) - Pending Review Specialty Diagnoses / Procedures Referred By [facility] t Referred To Contact [facility] Diagnoses Chest pressure [place] (dyspnea on exertion) Decreased stamina Procedures ECHO ECHO TTHRC R-T 2D W/WOM-MODE COMPL SPEC&COLR D Dustin Hoang MD [address] [place] [address] [facility] [place] [address] [place] [address] Referral ID Status Reason Start Date Expiration Date Visits Requested Visits Authorized [id number] Pending Review Auto-Generat ed Referral 11/21/2023 11/20/2024 1 1 [facility] Outpatient Procedure (Routine) - Authorized Specialty Diagnoses / Procedures Referred By [facility] t Referred To Contact [facility] Diagnoses [place] (dyspnea on exertion) Procedures OXIMETRY WITH AMBULATION NONINVASIVE EAR/PULSE [place] [address] [place] [address] Res[facility] [place] [address] [place] [address] Referral ID Status Reason Start Date Expiration Date Visits Requested Visits Authorized [id number] Authorized Auto-Generat ed Referral 11/28/2023 12/27/2024 1 1 [facility] Reason for Referral Specialty Diagnoses / Procedures Referred By Cont[facility] t Referred To Contact CT IMAGING Diagnoses Hydronephrosis, unspecified hydronephrosis type Dilation of biliary tract Procedures CT ABDOMEN W IVCON CT ABDOMEN W/CONTRAST Dustin Hoang MD [facility] [place] [address] Ct Imaging Referral ID Status Reason Start Date Expiration Date Visits Requested Visits Authorized [id number] Authorized Auto-Generat ed Referral 08/01/2022 08/31/2023 1 1 Specialty Diagnoses / Procedures Referred By Cont[facility] t Referred To Contact Gastroenterology Diagnoses Epigastric pain Procedures CONSULT TO GASTROENTEROLOGY OFFICE/OUTPATIENT NEW HIGH MDM 60-74 MINUTES Dustin Hoang MD [address] [place] [id number] Referral ID Status Reason Start Date Expiration Date Visits Requested Visits Authorized [id number] Pending Review PCP Requested Referral 08/17/2022 08/17/2023 1 1 Specialty Diagnoses / Procedures Referred By Royal celis Referred To Contact CT IMAGING Diagnoses Hydronephrosis, unspecified hydronephrosis type Dilation of biliary tract Procedures CT ABDOMEN W IVCON CT ABDOMEN W/CONTRAST Dustin Hoang MD [address] [place] [address] Ct Imaging [place] [address] Referral ID Status Reason Start Date Expiration Date V isits Requested Visits Authorized [id number] Closed Auto-Generate d Referral 08/01/2022 08/31/2023 1 1 Specialty Diagnoses / Procedures Referred By Royal celis Referred To Contact CT IMAGING Diagnoses Ataxia Headache, unspecified headache type Procedures CT BRAIN WO IVCON CT HEAD/BRAIN W/O CONTRAST MATERIAL Dustin Hoang MD [address] [place] [address] Ct Imaging [place] [address] Referral ID Status Reason Start Date Expiration Date V isits Requested Visits Authorized [id number] Closed Auto-Generat ed Referral Patient Cleared - Admin/Chairm an/Director advise to proceed or did not respond 11/24/2023 06/08/2024 1 1 Chief Complaint and Reason for Visit Chief Complaint CHEST PAIN Consult NO E ORDERS YET E ORDERS Reason for Visit Bloating Chief Complaint Consult NO E ORDERS YET E ORDERS R/O HIATAL HERNIA Reason for Visit Bloating Chief Complaint Consult NO E ORDERS YET E ORDERS R/O HIATAL HERNIA CHEST PAIN CHEST PAIN weakness Reason for Visit Bloating Family History Relationship Condition Age at Onset Recorded Date/T jaun Unknown Family History?Cancer, Diabetes Unknown August 14, 2014 8:11pm Family History?Diabe paty, Heart Disease Unknown August 14, 2014 8:11pm Family History?No pertinent history Unkno wn August 14, 2014 8:11pm Advance Directives Advance Directive Response Recorded Date/ Time Advance Directives Yes August 14 15 5:12pm Living Will Yes August 14, 2014 5:12pm Power of Paraffin Plant Operator Yes August 14 5 5:12pm Advance Directive Response Recorded Date/ Time Name of Medical Power of Paraffin Plant Operator Meghan Chintan January 29, 2023 3:21pm Advance Directives Yes August 14 5:12pm Living Will Yes January 29 3:21pm Power of Paraffin Plant Operator Yes January 29 023 3:21pm Documents on File Type Date Recorded Patient Oxyacetylene Torch Operator Expl anation Advance Directive(s) 12/08/2023 2:05 PM Summary Purpose Additional Source Comments Source Comments (unrecognize d section and content) In the event this informatio n is protected by the Federal Confidentiality of Alcohol and Drug Abuse Patient Records regulations: The Federal rules restrict any use of the information to criminally investigate or prosecute any alcohol or drug abuse patient.[facility] the event this information is protected by the Federal Confidentiality of Alcohol and Drug Abuse Patient Records regulations: The Federal rules restrict any use of the information to criminally investigate or prosecute any alcohol or drug abuse patient.[facility] the event this information is protected by the Federal Confidentiality of Alcohol and Drug Abuse Patient Records regulations: The Federal rules restrict any use of the information to criminally investigate or prosecute any alcohol or drug abuse patient.[facility] the event this information is protected by the Federal Confidentiality of Alcohol and Drug Abuse Patient Records regulations: The Federal rules restrict any use of the information to criminally investigate or prosecute any alcohol or drug abuse patient.[facility] Center[facility] the event this information is protected by the Federal Confidentiality of Alcohol and Drug Abuse Patient Records regulations: The Federal rules restrict any use of the information to criminally investigate or prosecute any alcohol or drug abuse patient.[facility] Center[facility] the event this information is protected by the Federal Confidentiality of Alcohol and Drug Abuse Patient Records regulations: The Federal rules restrict any use of the information to criminally investigate or prosecute any alcohol or drug abuse patient.[facility] CenterIn the event this information is protected by the Federal Confidentiality of Alcohol and Drug Abuse Patient Records regulations: The Federal rules restrict any use of the information to criminally investigate or prosecute any alcohol or drug abuse patient.[facility] CenterIn the event this information is protected by the Federal Confidentiality of Alcohol and Drug Abuse Patient Records regulations: The Federal rules restrict any use of the information to criminally investigate or prosecute any alcohol or drug abuse patient.[facility] CenterIn the event this information is protected by the Federal Confidentiality of Alcohol and Drug Abuse Patient Records regulations: The Federal rules restrict any use of the information to criminally investigate or prosecute any alcohol or drug abuse patient.[facility] CenterIn the event this information is protected by the Federal Confidentiality of Alcohol and Drug Abuse Patient Records regulations: The Federal rules restrict any use of the information to criminally investigate or prosecute any alcohol or drug abuse patient.[facility] CenterIn the event this information is protected by the Federal Confidentiality of Alcohol and Drug Abuse Patient Records regulations: The Federal rules restrict any use of the information to criminally investigate or prosecute any alcohol or drug abuse patient.[facility] CenterIn the event this information is protected by the Federal Confidentiality of Alcohol and Drug Abuse Patient Records regulations: The Federal rules restrict any use of the information to criminally investigate or prosecute any alcohol or drug abuse patient.[facility] CenterIn the event this information is protected by the Federal Confidentiality of Alcohol and Drug Abuse Patient Records regulations: The Federal rules restrict any use of the information to criminally investigate or prosecute any alcohol or drug abuse patient.[facility] CenterIn the event this information is protected by the Federal Confidentiality of Alcohol and Drug Abuse Patient Records regulations: The Federal rules restrict any use of the information to criminally investigate or prosecute any alcohol or drug abuse patient.[facility] CenterIn the event this information is protected by the Federal Confidentiality of Alcohol and Drug Abuse Patient Records regulations: The Federal rules restrict any use of the information to criminally investigate or prosecute any alcohol or drug abuse patient.[facility] CenterIn the event this information is protected by the Federal Confidentiality of Alcohol and Drug Abuse Patient Records regulations: The Federal rules restrict any use of the information to criminally investigate or prosecute any alcohol or drug abuse patient.[facility] CenterIn the event this information is protected by the Federal Confidentiality of Alcohol and Drug Abuse Patient Records regulations: The Federal rules restrict any use of the information to criminally investigate or prosecute any alcohol or drug abuse patient.[facility] CenterIn the event this information is protected by the Federal Confidentiality of Alcohol and Drug Abuse Patient Records regulations: The Federal rules restrict any use of the information to criminally investigate or prosecute any alcohol or drug abuse patient.[facility] CenterIn the event this information is protected by the Federal Confidentiality of Alcohol and Drug Abuse Patient Records regulations: The Federal rules restrict any use of the information to criminally investigate or prosecute any alcohol or drug abuse patient.[facility] CenterIn the event this information is protected by the Federal Confidentiality of Alcohol and Drug Abuse Patient Records regulations: The Federal rules restrict any use of the information to criminally investigate or prosecute any alcohol or drug abuse patient.[facility] CenterIn the event this information is protected by the Federal Confidentiality of Alcohol and Drug Abuse Patient Records regulations: The Federal rules restrict any use of the information to criminally investigate or prosecute any alcohol or drug abuse patient.[facility] CenterIn the event this information is protected by the Federal Confidentiality of Alcohol and Drug Abuse Patient Records regulations: The Federal rules restrict any use of the information to criminally investigate or prosecute any alcohol or drug abuse patient.[facility] CenterIn the event this information is protected by the Federal Confidentiality of Alcohol and Drug Abuse Patient Records regulations: The Federal rules restrict any use of the information to criminally investigate or prosecute any alcohol or drug abuse patient.[facility] CenterIn the event this information is protected by the Federal Confidentiality of Alcohol and Drug Abuse Patient Records regulations: The Federal rules restrict any use of the information to criminally investigate or prosecute any alcohol or drug abuse patient.[facility] CenterIn the event this information is protected by the Federal Confidentiality of Alcohol and Drug Abuse Patient Records regulations: The Federal rules restrict any use of the information to criminally investigate or prosecute any alcohol or drug abuse patient.[facility] CenterIn the event this information is protected by the Federal Confidentiality of Alcohol and Drug Abuse Patient Records regulations: The Federal rules restrict any use of the information to criminally investigate or prosecute any alcohol or drug abuse patient.[facility] CenterIn the event this information is protected by the Federal Confidentiality of Alcohol and Drug Abuse Patient Records regulations: The Federal rules restrict any use of the information to criminally investigate or prosecute any alcohol or drug abuse patient.[facility] CenterIn the event this information is protected by the Federal Confidentiality of Alcohol and Drug Abuse Patient Records regulations: The Federal rules restrict any use of the information to criminally investigate or prosecute any alcohol or drug abuse patient.[facility] CenterIn the event this information is protected by the Federal Confidentiality of Alcohol and Drug Abuse Patient Records regulations: The Federal rules restrict any use of the information to criminally investigate or prosecute any alcohol or drug abuse patient.[facility] CenterIn the event this information is protected by the Federal Confidentiality of Alcohol and Drug Abuse Patient Records regulations: The Federal rules restrict any use of the information to criminally investigate or prosecute any alcohol or drug abuse patient.[facility]In the event this information is protected by the Federal Confidentiality of Alcohol and Drug Abuse Patient Records regulations: The Federal rules restrict any use of the information to criminally investigate or prosecute any alcohol or drug abuse patient.[facility] CenterIn the event this information is protected by the Federal Confidentiality of Alcohol and Drug Abuse Patient Records regulations: The Federal rules restrict any use of the information to criminally investigate or prosecute any alcohol or drug abuse patient.[facility] CenterIn the event this information is protected by the Federal Confidentiality of Alcohol and Drug Abuse Patient Records regulations: The Federal rules restrict any use of the information to criminally investigate or prosecute any alcohol or drug abuse patient.[facility] CenterIn the event this information is protected by the Federal Confidentiality of Alcohol and Drug Abuse Patient Records regulations: The Federal rules restrict any use of the information to criminally investigate or prosecute any alcohol or drug abuse patient.[facility] CenterIn the event this information is protected by the Federal Confidentiality of Alcohol and Drug Abuse Patient Records regulations: The Federal rules restrict any use of the information to criminally investigate or prosecute any alcohol or drug abuse patient.[facility] CenterIn the event this information is protected by the Federal Confidentiality of Alcohol and Drug Abuse Patient Records regulations: The Federal rules restrict any use of the information to criminally investigate or prosecute any alcohol or drug abuse patient.[facility] CenterIn the event this information is protected by the Federal Confidentiality of Alcohol and Drug Abuse Patient Records regulations: The Federal rules restrict any use of the information to criminally investigate or prosecute any alcohol or drug abuse patient.[facility] CenterIn the event this information is protected by the Federal Confidentiality of Alcohol and Drug Abuse Patient Records regulations: The Federal rules restrict any use of the information to criminally investigate or prosecute any alcohol or drug abuse patient.[facility] CenterIn the event this information is protected by the Federal Confidentiality of Alcohol and Drug Abuse Patient Records regulations: The Federal rules restrict any use of the information to criminally investigate or prosecute any alcohol or drug abuse patient.[facility] CenterIn the event this information is protected by the Federal Confidentiality of Alcohol and Drug Abuse Patient Records regulations: The Federal rules restrict any use of the information to criminally investigate or prosecute any alcohol or drug abuse patient.[facility] CenterIn the event this information is protected by the Federal Confidentiality of Alcohol and Drug Abuse Patient Records regulations: The Federal rules restrict any use of the information to criminally investigate or prosecute any alcohol or drug abuse patient.[facility] CenterIn the event this information is protected by the Federal Confidentiality of Alcohol and Drug Abuse Patient Records regulations: The Federal rules restrict any use of the information to criminally investigate or prosecute any alcohol or drug abuse patient.[facility] CenterIn the event this information is protected by the Federal Confidentiality of Alcohol and Drug Abuse Patient Records regulations: The Federal rules restrict any use of the information to criminally investigate or prosecute any alcohol or drug abuse patient.[facility] CenterIn the event this information is protected by the Federal Confidentiality of Alcohol and Drug Abuse Patient Records regulations: The Federal rules restrict any use of the information to criminally investigate or prosecute any alcohol or drug abuse patient.[facility] CenterIn the event this information is protected by the Federal Confidentiality of Alcohol and Drug Abuse Patient Records regulations: The Federal rules restrict any use of the information to criminally investigate or prosecute any alcohol or drug abuse patient.[facility] CenterIn the event this information is protected by the Federal Confidentiality of Alcohol and Drug Abuse Patient Records regulations: The Federal rules restrict any use of the information to criminally investigate or prosecute any alcohol or drug abuse patient.[facility] CenterIn the event this information is protected by the Federal Confidentiality of Alcohol and Drug Abuse Patient Records regulations: The Federal rules restrict any use of the information to criminally investigate or prosecute any alcohol or drug abuse patient.[facility] CenterIn the event this information is protected by the Federal Confidentiality of Alcohol and Drug Abuse Patient Records regulations: The Federal rules restrict any use of the information to criminally investigate or prosecute any alcohol or drug abuse patient.[facility] CenterIn the event this information is protected by the Federal Confidentiality of Alcohol and Drug Abuse Patient Records regulations: The Federal rules restrict any use of the information to criminally investigate or prosecute any alcohol or drug abuse patient.[facility] CenterIn the event this information is protected by the Federal Confidentiality of Alcohol and Drug Abuse Patient Records regulations: The Federal rules restrict any use of the information to criminally investigate or prosecute any alcohol or drug abuse patient.[facility] CenterIn the event this information is protected by the Federal Confidentiality of Alcohol and Drug Abuse Patient Records regulations: The Federal rules restrict any use of the information to criminally investigate or prosecute any alcohol or drug abuse patient.[facility] CenterIn the event this information is protected by the Federal Confidentiality of Alcohol and Drug Abuse Patient Records regulations: The Federal rules restrict any use of the information to criminally investigate or prosecute any alcohol or drug abuse patient.[facility] CenterIn the event this information is protected by the Federal Confidentiality of Alcohol and Drug Abuse Patient Records regulations: The Federal rules restrict any use of the information to criminally investigate or prosecute any alcohol or drug abuse patient.[facility] CenterIn the event this information is protected by the Federal Confidentiality of Alcohol and Drug Abuse Patient Records regulations: The Federal rules restrict any use of the information to criminally investigate or prosecute any alcohol or drug abuse patient.[facility] CenterIn the event this information is protected by the Federal Confidentiality of Alcohol and Drug Abuse Patient Records regulations: The Federal rules restrict any use of the information to criminally investigate or prosecute any alcohol or drug abuse patient.[facility] CenterIn the event this information is protected by the Federal Confidentiality of Alcohol and Drug Abuse Patient Records regulations: The Federal rules restrict any use of the information to criminally investigate or prosecute any alcohol or drug abuse patient.[facility] CenterIn the event this information is protected by the Federal Confidentiality of Alcohol and Drug Abuse Patient Records regulations: The Federal rules restrict any use of the information to criminally investigate or prosecute any alcohol or drug abuse patient.[facility] CenterIn the event this information is protected by the Federal Confidentiality of Alcohol and Drug Abuse Patient Records regulations: The Federal rules restrict any use of the information to criminally investigate or prosecute any alcohol or drug abuse patient.[facility] CenterIn the event this information is protected by the Federal Confidentiality of Alcohol and Drug Abuse Patient Records regulations: The Federal rules restrict any use of the information to criminally investigate or prosecute any alcohol or drug abuse patient.[facility] CenterIn the event this information is protected by the Federal Confidentiality of Alcohol and Drug Abuse Patient Records regulations: The Federal rules restrict any use of the information to criminally investigate or prosecute any alcohol or drug abuse patient.[facility] CenterIn the event this information is protected by the Federal Confidentiality of Alcohol and Drug Abuse Patient Records regulations: The Federal rules restrict any use of the information to criminally investigate or prosecute any alcohol or drug abuse patient.[facility] CenterIn the event this information is protected by the Federal Confidentiality of Alcohol and Drug Abuse Patient Records regulations: The Federal rules restrict any use of the information to criminally investigate or prosecute any alcohol or drug abuse patient.[facility] CenterIn the event this information is protected by the Federal Confidentiality of Alcohol and Drug Abuse Patient Records regulations: The Federal rules restrict any use of the information to criminally investigate or prosecute any alcohol or drug abuse patient.[facility] CenterIn the event this information is protected by the Federal Confidentiality of Alcohol and Drug Abuse Patient Records regulations: The Federal rules restrict any use of the information to criminally investigate or prosecute any alcohol or drug abuse patient.[facility] CenterIn the event this information is protected by the Federal Confidentiality of Alcohol and Drug Abuse Patient Records regulations: The Federal rules restrict any use of the information to criminally investigate or prosecute any alcohol or drug abuse patient.[facility] CenterIn the event this information is protected by the Federal Confidentiality of Alcohol and Drug Abuse Patient Records regulations: The Federal rules restrict any use of the information to criminally investigate or prosecute any alcohol or drug abuse patient.[facility] CenterIn the event this information is protected by the Federal Confidentiality of Alcohol and Drug Abuse Patient Records regulations: The Federal rules restrict any use of the information to criminally investigate or prosecute any alcohol or drug abuse patient.[facility] CenterIn the event this information is protected by the Federal Confidentiality of Alcohol and Drug Abuse Patient Records regulations: The Federal rules restrict any use of the information to criminally investigate or prosecute any alcohol or drug abuse patient.[facility] CenterIn the event this information is protected by the Federal Confidentiality of Alcohol and Drug Abuse Patient Records regulations: The Federal rules restrict any use of the information to criminally investigate or prosecute any alcohol or drug abuse patient.[facility] CenterIn the event this information is protected by the Federal Confidentiality of Alcohol and Drug Abuse Patient Records regulations: The Federal rules restrict any use of the information to criminally investigate or prosecute any alcohol or drug abuse patient.[facility] CenterIn the event this information is protected by the Federal Confidentiality of Alcohol and Drug Abuse Patient Records regulations: The Federal rules restrict any use of the information to criminally investigate or prosecute any alcohol or drug abuse patient.[facility] CenterIn the event this information is protected by the Federal Confidentiality of Alcohol and Drug Abuse Patient Records regulations: The Federal rules restrict any use of the information to criminally investigate or prosecute any alcohol or drug abuse patient.[facility] CenterIn the event this information is protected by the Federal Confidentiality of Alcohol and Drug Abuse Patient Records regulations: The Federal rules restrict any use of the information to criminally investigate or prosecute any alcohol or drug abuse patient.[facility] CenterIn the event this information is protected by the Federal Confidentiality of Alcohol and Drug Abuse Patient Records regulations: The Federal rules restrict any use of the information to criminally investigate or prosecute any alcohol or drug abuse patient.[facility] CenterIn the event this information is protected by the Federal Confidentiality of Alcohol and Drug Abuse Patient Records regulations: The Federal rules restrict any use of the information to criminally investigate or prosecute any alcohol or drug abuse patient.[facility] CenterIn the event this information is protected by the Federal Confidentiality of Alcohol and Drug Abuse Patient Records regulations: The Federal rules restrict any use of the information to criminally investigate or prosecute any alcohol or drug abuse patient.[facility] CenterIn the event this information is protected by the Federal Confidentiality of Alcohol and Drug Abuse Patient Records regulations: The Federal rules restrict any use of the information to criminally investigate or prosecute any alcohol or drug abuse patient.[facility] CenterIn the event this information is protected by the Federal Confidentiality of Alcohol and Drug Abuse Patient Records regulations: The Federal rules restrict any use of the information to criminally investigate or prosecute any alcohol or drug abuse patient.[facility] CenterIn the event this information is protected by the Federal Confidentiality of Alcohol and Drug Abuse Patient Records regulations: The Federal rules restrict any use of the information to criminally investigate or prosecute any alcohol or drug abuse patient.[facility] CenterIn the event this information is protected by the Federal Confidentiality of Alcohol and Drug Abuse Patient Records regulations: The Federal rules restrict any use of the information to criminally investigate or prosecute any alcohol or drug abuse patient.[facility]In the event this information is protected by the Federal Confidentiality of Alcohol and Drug Abuse Patient Records regulations: The Federal rules restrict any use of the information to criminally investigate or prosecute any alcohol or drug abuse patient.[facility] CenterIn the event this information is protected by the Federal Confidentiality of Alcohol and Drug Abuse Patient Records regulations: The Federal rules restrict any use of the information to criminally investigate or prosecute any alcohol or drug abuse patient.[facility] CenterIn the event this information is protected by the Federal Confidentiality of Alcohol and Drug Abuse Patient Records regulations: The Federal rules restrict any use of the information to criminally investigate or prosecute any alcohol or drug abuse patient.[facility] CenterIn the event this information is protected by the Federal Confidentiality of Alcohol and Drug Abuse Patient Records regulations: The Federal rules restrict any use of the information to criminally investigate or prosecute any alcohol or drug abuse patient.[facility] Reason for Visit (unrecogniz ed section and content) Reason Comments Derm Problem blister like rash on right side of face and neck x 3-4 days, itching and burning Reason Comments Results Reason Onset Date Comments Refill Request 11/08/2021 Reason Comments Medicare Wellness Exam Reason Comments Blood Pressure Check Reason Onset Date Comments Refill Request 03/28/2022 Reason Onset Date Comments Refill Request 04/25/2022 Reason Comments F/U 6 months Reason Comments Consult Consult ortho Reason Comments Results Reason Comments Follow Up Reason Onset Date Comments Refill Request 08/29/2022 Reason Comments Results Opened in error Reason Comments Results Labs Reason Comments Outside [id number] Ordered Reason Comments F/U 6 months Reason Onset Date Comments Refill Request 01/16/2023 Reason Comments Patient Update Reason Onset Date Comments Refill Request 03/20/2023 Reason Comments Medication Problem Reason Comments Refill Request Reason Comments Radiology CT Specialty Diagnoses / Procedures Referred By Contac t Referred To Contact CT IMAGING Diagnoses Hydronephrosis, unspecified hydronephrosis type Dilation of biliary tract Procedures CT ABDOMEN W IVCON CT ABDOMEN W/CONTRAST Dustin Hoang MD [address] [place] [address] [place] [address] Referral ID Status Reason Start Date Expiration Date V isits Requested Visits Authorized [id number] Closed Auto-Generate d Referral 08/01/2022 08/31/2023 1 1 Reason Comments Radiology US Specialty Diagnoses / Procedures Referred By Alanac t Referred To Contact US IMAGING Diagnoses Epigastric pain Procedures US ABD RT UPPER QUADRANT US ABDOMINAL REAL TIME W/IMAGE LIMITED Dustin Hoang MD [address] [place] [address] [place] [address] Referral ID Status Reason Start Date Expiration Date V isits Requested Visits Authorized [id number] Closed Auto-Generate d Referral 07/25/2022 08/24/2023 1 1 Reason Comments Rash Possible shingles, l ower back across buttock area x 3 daysCough x 1 month Reason Onset Date Comments Refill Request 07/29/2023 Reason Onset Date Comments Refill Request 08/13/2023 Reason Onset Date Comments Refill Request 09/29/2023 Reason Onset Date Comments Refill Request 11/18/2023 Reason Comments Spirometry Specialty Diagnoses / Procedures Referred By Contac t Referred [facility] Diagnoses [place] (dyspnea on exertion) Decreased stamina Ex-smoker Procedures SPIROMETRY - BASELINE AND POST DILATOR BRNCDILAT RSPSE SPMTRY PRE&POST-BRNCDILAT ADMN Dustin Hoang MD [address] [place] [address] [facility] [place] [address] [place] [address] Referral ID Status Reason Start Date Expiration Date V isits Requested Visits Authorized [id number] Closed Auto-Generate d Referral 11/21/2023 12/20/2024 1 1 Reason Comments Follow Up Specialty Diagnoses / Procedures Referred By Contac t Referred To Contact CT IMAGING Diagnoses Ataxia Headache, unspecified headache type Procedures CT BRAIN WO IVCON CT HEAD/BRAIN W/O CONTRAST MATERIAL Dustin Hoang MD [facility] [place] [id number] Imaging [id number] Referral ID Status Reason Start Date Expiration Date V isits Requested Visits Authorized [id number] Closed Auto-Generat ed Referral Patient Cleared - Admin/Chairm an/Director advise to proceed or did not respond 11/24/2023 06/08/2024 1 1 Reason Comments Appointment Nuclear Stress Test - [facility] Specialty Diagnoses / Procedures Referred By Contac t Referred To Contact [facility] Diagnoses MON[place]OMERY (dyspnea on exertion) Procedures OXIMETRY WITH AMBULATION NONINVASIVE EAR/PULSE OXIMETRY MULTIPLE DETER Dustin Hoang MD [address] [place] [address] Res[facility] [place] [address] [place] [address] Referral ID Status Reason Start Date Expiration Date V isits Requested Visits Authorized [id number] Closed Auto-Generate d Referral 11/28/2023 12/27/2024 1 1 Reason Onset Date Comments Refill Request 02/17/2024 Reason Onset Date Comments Refill Request 02/18/2024 Reason Comments Outside Testing [facility] - xray Reason Onset Date Comments Refill Request 03/03/2024 Reason Comments ED Follow-up Reason Onset Date Comments Refill Request 04/21/2024 Reason Onset Date Comments Refill Request 05/19/2024 Reason Onset Date Comments Refill Request 06/30/2024 Reason Onset Date Comments Refill Request 07/13/2024 Reason Onset Date Comments Refill Request 08/13/2024 Reason Onset Date Comments Refill Request 09/27/2024 Reason Onset Date Comments Refill Request 11/11/2024 Care Teams (unrecognized sec tion and content) Field Staff Relationship Specialty Start Date End Date Dustin Hoang MD [facility] [place] [address] PCP - General Family Practice 05/09/17 Field Staff Relationship Specialty Start Date End Date Dustin Hoang MD [address] [place] [address], [place] [address] PCP - General Family Practice 05/09/17 Field Staff Relationship Specialty Start Date End Date Dustin Hoang MD [address] [place] [address], [place] [address] PCP - General Family Practice 05/09/17 Field Staff Relationship Specialty Start Date End Date Dustin Hoang MD [address] [place] [address], [place] [address] PCP - General Family Practice 05/09/17 Field Staff Relationship Specialty Start Date End Date Dustin Hoang MD [address] [place] [address], [place] [address] PCP - General Family Practice 05/09/17 Field Staff Relationship Specialty Start Date End Date Dustin Hoang MD [address] [place] [address], [place] [address] PCP - General Family Practice 05/09/17 Field Staff Relationship Specialty Start Date End Date Dustin Hoang MD [address] [place] [address], [place] [address] PCP - General Family Practice 05/09/17 Field Staff Relationship Specialty Start Date End Date Dustin Hoang MD [address] [place] [address] PCP - General Family Practice 05/09/17 Field Staff Relationship Specialty Start Date End Date Dustin Hoang MD [facility] [place] [address] PCP - General Family Practice 05/09/17 Field Staff Relationship Specialty Start Date End Date Dustin Hoang MD [facility] [place] [address] PCP - General Family Medicine 05/09/17 Field Staff Relationship Specialty Start Date End Date Dustin Hoang MD [address] [place] [address], [place] [address] PCP - General Family Medicine 05/09/17 Field Staff Relationship Specialty Start Date End Date Dustin Hoang MD [address] [place] [address], [place] [address] PCP - General Family Medicine 05/09/17 Field Staff Relationship Specialty Start Date End Date Dustin Hoang MD [address] [place] [address], [place] [address] PCP - General Family Medicine 05/09/17 Field Staff Relationship Specialty Start Date End Date Dustin Hoang MD [facility] [place] [address] PCP - General Family Medicine 05/09/17 Field Staff Relationship Specialty Start Date End Date Dustin Hoang MD [address] [place] [address], [place] [address] PCP - General Family Medicine 05/09/17 Field Staff Relationship Specialty Start Date End Date Dustin Hoang MD [address] [place] [address], [place] [address] PCP - General Family Medicine 05/09/17 Field Staff Relationship Specialty Start Date End Date Dustin Hoang MD [address] [place] [address] PCP - General Family Medicine 05/09/17 Field Staff Relationship Specialty Start Date End Date Dustin Hoang MD [address] [place] [address] PCP - General Family [facility] 05/09/17 Field Staff Relationship Specialty Start Date End Date Dustin Hoang MD [address] [place] [address] PCP - General Family [facility] 05/09/17 Field Staff Relationship Specialty Start Date End Date Dustin Hoang MD [address] [place] [address] PCP - General Family [facility] 05/09/17 Team Status: Active Member Role Status Dates Dr. Dustin Joyner MD Family Provider Active Dr. Dustin Hoang MD Primary Care Provider Active Team Status: Inactive Member Role Status Dates Dr. Dusitn Joyner MD Primary Care Provider, Referri ng Provider Active Dr. Kevon Crum DO Attending Provider Active Team Status: Inactive Member Role Status Dates Dr. Dustin Joyner MD Primary Care Provider Active KARINA BECKFORD Referring Provider Active KARINA BECKFORD Attending Provider Active Team Status: Inactive Member Role Status Dates Dr. Dustin Hoang MD Primary Care Provider Active Dr. Kevon Crum DO Attending Provider, Referring Provider Active Team Status: Active Member Role Status Dates Dr. Dustin Hoang MD Primary Care Provider Active Dr. Kevon Crum DO Attending Provider, Referring Provider Active Field Staff Relationship Specialty Start Date End Date Dustin Hoang MD [address] [place] [address] PCP - General Family Medicine 05/09/17 Team Status: Active Member Role Status Dates Dr. Dustin Hoang MD Primary Care Pro vider, Referring Provider, Other Provider Active Dr. Jenn Saleh MD Attending Provider Active Team Status: Active Member Role Status Dates Dr. Dustin Hoang MD Primary Care Pro vider, Attending Provider, Referring Provider Active Team Status: Inactive Member Role Status Dates Dr. Dustin Hoang MD Primary Care Provider Active Dr. Flynn Castillo DO Emergency Provider Active Field Staff Relationship Specialty Start Date End Date Dustin Hoang MD [address] [place] [address] PCP - General Family Medicine 05/09/17 Field Staff Relationship Specialty Start Date End Date Dustin Hoang MD [address] [place] [address] PCP - General Family Medicine 05/09/17 Field Staff Relationship Specialty Start Date End Date Dustin Hoang MD [address] [place] [address] PCP - General Family Medicine 05/09/17 Field Staff Relationship Specialty Start Date End Date Dustin Hoang MD [address] [place] [address] PCP - General Family Medicine 05/09/17 Field Staff Relationship Specialty Start Date End Date Dustin Hoang MD [address] [place] [address] PCP - General Family Medicine 05/09/17 Field Staff Relationship Specialty Start Date End Date Dustin Hoang MD [address] [place] [address] PCP - General Family Medicine 05/09/17 Field Staff Relationship Specialty Start Date End Date Dustin Haong MD [address] [place] [address] PCP - General Family Medicine 05/09/17 Field Staff Relationship Specialty Start Date End Date Dustin Hoang MD [address] [place] [address] PCP - General Family Medicine 05/09/17 Field Staff Relationship Specialty Start Date End Date Dustin Hoang MD [address] [place] [address] PCP - General Family Medicine 05/09/17 Field Staff Relationship Specialty Start Date End Date Dustin Hoang MD [address] [place] [address] PCP - General Family Medicine 05/09/17 Field Staff Relationship Specialty Start Date End Date Dustin Hoang MD [address] [place] [address] PCP - General Family Medicine 05/09/17 Field Staff Relationship Specialty Start Date End Date Dustin Hoang MD [address] [place] [address] PCP - General Family Medicine 05/09/17 Field Staff Relationship Specialty Start Date End Date Dustin Hoang MD [address] [place] [address] PCP - General Family Medicine 05/09/17 Field Staff Relationship Specialty Start Date End Date Dustin Hoang MD [address] [place] [address] PCP - General Family Medicine 05/09/17 Field Staff Relationship Specialty Start Date End Date Dustin Hoang MD [address] [place] [address] PCP - General Family Medicine 05/09/17 Field Staff Relationship Specialty Start Date End Date Dustin Hoang MD [address] [place] [address] PCP - General Family Medicine 05/09/17 Field Staff Relationship Specialty Start Date End Date Dustin Hoang MD [address] [place] [address] PCP - General Family Medicine 05/09/17 Field Staff Relationship Specialty Start Date End Date Dustin Hoang MD [address] [place] [address] PCP - General Family Medicine 05/09/17 Field Staff Relationship Specialty Start Date End Date Dustin Hoang MD [address] [place] [address] PCP - General Family Medicine 05/09/17 Field Staff Relationship Specialty Start Date End Date Dustin Hoang MD [address] [place] [address] PCP - General Family Medicine 05/09/17 Field Staff Relationship Specialty Start Date End Date Dustin Hoang MD [address] [place] [address] PCP - General Family Medicine 05/09/17 Field Staff Relationship Specialty Start Date End Date Dustin Hoang MD [address] [place] [address] PCP - General Family Medicine 05/09/17 Field Staff Relationship Specialty Start Date End Date Dustin Hoang MD [address] [place] [address] PCP - General Family Medicine 05/09/17 Shakeel Collins, RISSA.BUNDLER [address] [facility] [place] [address] [employer] [facility] 05/15/24 Mamie Sotelo PA-C [address] [place] [address] [employer] [facility] 05/15/24 Field Staff Relationship Specialty Start Date End Date Dustin Hoang MD [address] [place] [address] PCP - General Family Medicine 05/09/17 Shakeel Collins, CIGAR SORTER.BUNDLER [address] [facility] [place] [address] [employer] [facility] 05/15/24 Mamie Sotelo PA-C [address] [place] [address] [employer] [facility] 05/15/24 Field Staff Relationship Specialty Start Date End Date Dustin Hoang MD [address] [place] [address] PCP - General Family Medicine 05/09/17 Shakeel Collins APRN.BUNDLER [address] [facility] [place] [address] [employer] [facility] 05/15/24 Mamie Sotelo PA-C [address] [place] [address] [employer] 05/15/24 Field Staff Relationship Specialty Start Date End Date Dustin Hoang MD [address] [place] [address] PCP - General Family Medicine 05/09/17 Shakeel Collins APRN.BUNDLER [address] [place] [address] [employer] [facility] 05/15/24 Mamie Sotelo PA-C [address] [place] [address] [employer] [facility] 05/15/24 Field Staff Relationship Specialty Start Date End Date Dustin Hoang MD [address] [place] [address] PCP - General Family Medicine 05/09/17 Shakeel Collins APRN.BUNDLER [address] [place] [address] [employer] [facility] 05/15/24 Mamie Sotelo PA-C [address] [place] [address] [facility] 05/15/24 Field Staff Relationship Specialty Start Date End Date Dustin Hoang MD [address] [place] [address] PCP - General Family Medicine 05/09/17 Shakeel Collins, CIGAR SORTER.BUNDLER [address] [place] [address] [facility] 05/15/24 Mamie Sotelo PA-C [address] [place] [address] [facility] 05/15/24 Field Staff Relationship Specialty Start Date End Date Dustin Hoang MD [address] [place] [address] PCP - General Family Medicine 09/13/24 Shakeel Collins APRN.BUNDLER [address] [place] [address] [facility] 05/15/24 Mamie Sotelo PA-C [address] [place] [address] [facility] 05/15/24 Field Staff Relationship Specialty Start Date End Date Dustin Hoang MD [address] [place] [address] PCP - General Family Medicine 09/13/24 Shakeel Collins, RISSA.BUNDLER [facility] [place] [address] [facility] 11/08/24 Mamie Sotelo PA-C [address] [place] [address] [facility] 11/08/24 Goals (unrecognized section and content) Goals may be documented in a n alternate sectionGoals may be documented in an alternate sectionGoals may be documented in an alternate section INFORMATION SOURCE (unrecogn ized section and content) DATE CREATED AUTHOR 12/18/2022 [facility] DATE CREATED AUTHOR AUTHOR'S ANDREI ATION 04/16/2024 [facility] DATE CREATED AUTHOR AUTHOR'S ANDREI CRONIN 07/12/2024 [facility] FOR RECORDS PERTAINING TO PATIENTS WHO ARE OR HAVE BEEN ENROLLED IN A CHEMICAL DEPENDENCY/SUBSTANCEABUSE PROGRAM, SOME INFORMATION MAY BE OMITTED. This clinical summary was aggregated from multiple sources. Caution should be exercised in using it in the provision of clinical care. This summary normalizes information from multiple sources, and as a consequence, information in this document may materially change the coding, format and clinical context of patient data. In addition, data may be omitted in some cases. CLINICAL DECISIONS SHOULD BE BASED ON THE PRIMARY CLINICAL RECORDS. [facility] [employer] [facility] provides no warranty or guarantee of the accuracy or completeness of information in this document.
--- OUTSIDE RECORDS SUMMARY | 2024-11-29 23:23 | XMS RPT_ITS | CCD ---
Author Organization [facility] Care Team Providers Care Chief Nurse Executive Name Role Phone Dustin Hoang MD Primary Care Provider Dr. Dustin Joyner Primary Care Provider Dr. Dustin Joyner Referring Provider Dr. Kevon Crum Attending Provider Dustin Hoang MD Primary Care Provider DUSTIN HOANG Primary Care Unavailable Dr. Dustin [...] Unavailable Dustin Hoang Primary Care Unavailable John Alba Attending UnavailDustin Warner Consulting Unavailable Viktor, Dustin Referring Unavailable Viktor, Dustin Primary Care Unavailable Karina PLANT CONTROL AIDE.LISAAldoShakeel Unavailable Mamie Sotelo PA-C Unavailable VIKTOR, DUSTIN A Referring Unavailable VIKTOR, [...] Unavailable Dustin Hoang MD Primary Care Provider [phone] Karina PLANT CONTROL AIDE.LISAShakeel Unavailable Mamie Sotelo PA-C Unavailable [phone] Allergies Allergy Classification Reported Allergen(s) Allergy Type Date of Onset Reaction(s) Facility Adhesive Tape (4 sources) Adhesive Tape Substance Allergy 1 Rash [facility] Opioid Agonists (4 sources) Codeine Drug Allergy 7 GI Upset [facility] (20 sources) Adhesive Tape; Translations: [ADHESIVE TAPE (ROSINS)] Propensity to adverse reactions to substance 1 Rash [facility] Work Phone: (20 sources) Codeine; Translations: [CODEINE] Drug Allergy 7 GI Upset [facility] Work Phone: (20 sources) Thiazides; Translations: [THIAZIDES] Drug Intolerance 3 Other: See Comments [facility] Work Phone: (4 sources) Adhesive Tape; Translations: [adhesive tape] Allergy to substance 3 Other [facility] (1 source) Codeine Drug Allergy 4 [facility] Repository Medications Current Medications Medication Drug Class(es) [...] DAILY NEEDED August 15, 2014 10:37am amylase 313297 unt / lipase 83801 unt / protease 570358 unt delayed release oral capsule (20 sources) Start: 05-20-2023 CREON 36,000-1 14,000- 180,000 unit delayed release capsule 05/20/2023 Active Start: 12-04-2022 End: 01-08-2023 take 16683-815467 capsules by mouth three times daily at mealtime Jjuevb-Mlomldso-Gxoxlgb (Creon) 36,000-114,000- 180,000 unit capsule,delayed release(DR/EC) Active [...] Comment on above: Take 1 tablet by [facility] once daily. zolpidem tartrate 5 mg oral [...] Comment on above: Take 1 capsule by [facility] once daily. meloxicam 15 mg oral tablet [...] 2 Episodic Other aftercare (1 source) Other care home (current) drug therapy; Translations: [Medication management] Onset: [...] Test Name Value Interpretation Reference Range Facility [facility] 07-12-2024 [facility] Telephone (BRYANT) NIDHI NÚÑEZ ([id number]) 1940 F Date Time Provider Department 07/12/24 SHAKEEL COLLINS During your visit today, we recorded the following information about you: Shakeel Collins APRN.QLIKVIEW DEVELOPER 07/12/2024 10:05 AM Signed Please let patient [...] by WORKMAN SAMANTHA ROBINS on 07/12/24 Normal [facility] Bacteria Ur Culton Bacteria identified Cx Nom (U) ORGANISM ID: 1 >=100,000 CFU/ml Streptococcus anginosus No susceptibility testing done. Normal [facility] Comment on above: Performed By: #### 6 30-4 #### [facility] CLIA [id number] [address] [place] [address] OF [facility]-05-[facility]24 [facility] Telephone (BRYANT) NIDHI NÚÑEZ ([id number]) 1940 F Date Time Provider Department 07/05/24 [facility] During your visit today, we recorded the following information about you: Shakeel Collins APRN.QLIKVIEW DEVELOPER 07/05/2024 1:23 PM Signed Please let patient know her hgba1c is up slightly to 5.7. Also find out if she is having any urinary symptoms. Her other labs are stable. Alice Daniels OCCA 07/05/2024 3:47 PM Signed TC to patient who verbalized understanding of below. Patient states she has been having itching but denies burning/pain with urination, frequency, or odor. CHIP Rueda Danielle, APRN.QLIKVIEW DEVELOPER 07/05/2024 5:03 PM Signed I would like [...] [R82.90] Order(s):BACTERIAL CULTURE, URINE [SQURCUL] Order #: [id number] FUTURE Prescriptions as of 07/08/2024 - loratadine [...] Status:Closed by SHAKEEL COLLINS on 07/08/24 Normal [facility] CBC W Auto Differential pane l (Bld)on 07-02-2024 Basophils (Bld) [#/Vol] 0.04 10*3/uL Normal <0.11 [facility] Comment on above: Order Comment: Speci men Type: BLOOD SPECIMENOrdering Facility: [facility] Address: [address] [place], [place] [address] [address] Performed By: #### 5 7021-8 ####[facility]IA [id number] [place] [address] [place] Basophils/100 WBC (Bld) 0.6 % Normal [place] Comment on above: Order Comment: Speci men Type: BLOOD SPECIMENOrdering Facility: [facility] Address: [address] [place] [address] Performed By: #### 5 7021-8 ####[facility]CLIA [id number] [place] [address] [place] Differential cell count method Nom (Bld) Auto Normal [facility] Comment on above: Order Comment: Speci men Type: BLOOD SPECIMENOrdering Facility: [facility] Address: [address] [place] [address] Performed By: #### 5 7021-8 ####[facility]CLIA [id number] [place] [address] [place] Eosinophils (Bld) [#/Vol] 0.29 10*3/uL Normal <0.46 [facility] Comment on above: Order Comment: Speci men Type: BLOOD SPECIMENOrdering Facility: [facility] Address: [address] [place] [address] Performed By: #### 5 7021-8 ####[facility]CLIA [id number] [place] [address] [place] Eosinophils/100 WBC (Bld) 4.4 % Normal [facility] Comment on above: Order Comment: Speci men Type: BLOOD SPECIMENOrdering Facility: [facility] Address: [address] [place] [address] Performed By: #### 5 7021-8 ####[facility]CLIA [id number] [place] [address] [place] Erythrocyte distribution width (RBC) [Ratio] 13.3 % Normal 11.5-15.0 [facility] Comment on above: Order Comment: Speci men Type: BLOOD SPECIMENOrdering Facility: [facility] Address: [address] [place] [address] Performed By: #### 5 7021-8 ####[facility]CLIA [id number] [place] [address] [place] Hematocrit (Bld) [Volume fraction] 39.1 % Normal 36.0-46.0 [facility] Comment on above: Order Comment: Speci men Type: BLOOD SPECIMENOrdering Facility: [facility] Address: [address] [place] [address] Performed By: #### 5 7021-8 ####[facility]CLIA [id number] [place] [address] [place] Hemoglobin (Bld) [Mass/Vol] 12.2 g/dL Normal 11.5-15. 5 [facility] Comment on above: Order Comment: Speci men Type: BLOOD SPECIMENOrdering Facility: [facility] Address: [address] [place] [address] Performed By: #### 5 7021-8 ####[facility]CLIA [id number] [place] [address] [place] Immature granulocytes (Bld) [#/Vol] 10*3/uL Normal <0.10 [facility] Comment on above: Order Comment: Speci men Type: BLOOD SPECIMENOrdering Facility: [facility] Address: [address] [place] [address] Performed By: #### 5 7021-8 ####[facility]CLIA [id number] [place] [address] [place] Immature granulocytes/100 WBC (Bld) 0.3 % Normal [facility] Comment on above: Order Comment: Speci men Type: BLOOD SPECIMENOrdering Facility: [facility] Address: [address] [place] [address] Performed By: #### 5 7021-8 ####[facility]CLIA [id number] [place] [address] [place] Lymphocytes (Bld) [#/Vol] 1.78 10*3/uL Normal 1.00-4.0 0 [facility] Comment on above: Order Comment: Speci men Type: BLOOD SPECIMENOrdering Facility: [facility] Address: [address] [place] [address] Performed By: #### 5 7021-8 ####[facility]IA [id number] [place] [address] [place] Lymphocytes/100 WBC (Bld) 27.2 % Normal [facility] Comment on above: Order Comment: Speci men Type: BLOOD SPECIMENOrdering Facility: [facility] Address: [address] [place] [address] Performed By: #### 5 7021-8 ####[facility]UN[facility] [id number] [place] [address] [place] MCH (RBC) [Entitic mass] 27.3 pg Normal 26.0-34.0 [facility] Comment on above: Order Comment: Speci men Type: BLOOD SPECIMENOrdering Facility: [facility] Address: [address] [place] [address] Performed By: #### 5 7021-8 ####[facility]IA [id number] [place] [address] [place] MCHC (RBC) [Mass/Vol] 31.2 g/dL Normal 30.5-36.0 [facility] Comment on above: Order Comment: Speci men Type: BLOOD SPECIMENOrdering Facility: [facility] Address: [address] [place] [address] Performed By: #### 5 7021-8 ####[facility]IA [id number] [place] [address] [place] MCV (RBC) [Entitic vol] 87.5 fL Normal 80.0-100.0 [facility] Comment on above: Order Comment: Speci men Type: BLOOD SPECIMENOrdering Facility: [facility] Address: [address] [place] [address] Performed By: #### 5 7021-8 ####[facility]CLIA [id number] [place] [address] [place] Monocytes (Bld) [#/Vol] 0.70 10*3/uL Normal <0.87 [facility] Comment on above: Order Comment: Speci men Type: BLOOD SPECIMENOrdering Facility: [facility] Address: [address] [place] [address] Performed By: #### 5 7021-8 ####[facility]CLIA [id number] [place] [address] [place] Monocytes/100 WBC (Bld) 10.7 % Normal [facility] Comment on above: Order Comment: Speci men Type: BLOOD SPECIMENOrdering Facility: [facility] Address: [address] [place] [address] Performed By: #### 5 7021-8 ####[facility]CLIA [id number] [place] [address] [place] Neutrophils (Bld) [#/Vol] 3.71 10*3/uL Normal 1.45-7.5 0 [facility] Comment on above: Order Comment: Speci men Type: BLOOD SPECIMENOrdering Facility: [facility] Address: [address] [place] [address] Performed By: #### 5 7021-8 ####[facility]CLIA [id number] [place] [address] [place] Neutrophils/100 WBC (Bld) 56.8 % Normal [facility] Comment on above: Order Comment: Speci men Type: BLOOD SPECIMENOrdering Facility: [facility] Address: [address] [place] [address] Performed By: #### 5 7021-8 ####[facility]CLIA [id number] [place] [address] [place] Nucleated RBC (Bld) [#/Vol] 10*3/uL Normal <0.01 [facility] Comment on above: Order Comment: Speci men Type: BLOOD SPECIMENOrdering Facility: [facility] Address: [address] [place] [address] Performed By: #### 5 7021-8 ####[facility]CLIA [id number] [place] [address] [place] Nucleated RBC/100 WBC (Bld) [Ratio] 0.0 /100 WBC Normal [facility] Comment on above: Order Comment: Speci men Type: BLOOD SPECIMENOrdering Facility: [facility] Address: [address] [place] [address] Performed By: #### 5 7021-8 ####[facility]IA [id number] [place] [address] [place] Platelet mean volume (Bld) [Entitic vol] 10.4 fL Normal 9.0-12.7 [facility] Comment on above: Order Comment: Speci men Type: BLOOD SPECIMENOrdering Facility: [facility] Address: [address] [place] [address] Performed By: #### 5 7021-8 ####[facility]IA [id number] [place] [address] [place] Platelets (Bld) [#/Vol] 197 10*3/uL Normal 150-400 [facility] Comment on above: Order Comment: Speci men Type: BLOOD SPECIMENOrdering Facility: [facility] Address: [address] [place] [address] Performed By: #### 5 7021-8 ####[facility]CLIA [id number] [place] [address] [place] RBC (Bld) [#/Vol] 4.47 10*6/uL Normal 3.90-5.20 [facility] Comment on above: Order Comment: Speci men Type: BLOOD SPECIMENOrdering Facility: [facility] Address: [address] [place] [address] Performed By: #### 5 7021-8 ####[facility]CLIA [id number] [place] [address] [place] WBC (Bld) [#/Vol] 6.54 10*3/uL Normal 3.70-11.00 [facility] Comment on above: Order Comment: Speci men Type: BLOOD SPECIMENOrdering Facility: [facility] Address: [address] [place] [address] Performed By: #### 5 7021-8 ####[facility]CLIA [id number] [address] [place] CNOVon 07-02-2024 [facility] NIDHI NÚÑEZ ([id number]) 1940 F Date Time Provider Department 07/02/24 2:00 PM SHAKEEL COLLINS During your visit today, we recorded the following information about you: Pulse Blood pressure Weight 55/minute 127/70 73 kg Shakeel Collins APRN.QLIKVIEW DEVELOPER 07/02/2024 2:29 PM Signed Nidhi Núñez is [...] Smoke, vape, chews tobacco No Difficulty hearing [place], no hearing aids Difficulty seeing Wears glasses, has appt at eye doctor coming up Current Providers Specialists: I have reviewed specialist-related care of the patient in the medical record. Current care team: Patient Care Team: Dustin Hoang MD as PCP - General (Family Medicine) Shakeel Collins APRN.LISA as Cloth Spreader (Family Medicine) Mamie Sotelo PA-C as Cloth Spreader (Family Medicine) Medical/Family history review Reviewed and [...] Tape (Jeannette* (more content not included)... Normal [facility] Comprehensive metabolic 2000 panelon 07-02-2024 Albumin [Mass/Vol] 4.1 g/dL Normal 3.9-4.9 [facility] Comment on above: Order Comment: Speci men Type: BLOOD SPECIMENOrdering Facility: [facility] Address: [address] [place] [address] Performed By: #### 3 016-3, 88638-9, JOSE MARTIN, 53136-9 ####[facility]CLIA [id number] [place] [id number] [place] ALP [Catalytic activity/Vol] 50 U/L Normal 34-123 [facility] Comment on above: Order Comment: Speci men Type: BLOOD SPECIMENOrdering Facility: [facility] Address: [address] [place] [address] Performed By: #### 3 016-3, 09135-1, LIPNF, 53900-3 ####[facility]CLIA [id number] [place] [address] [place] ALT [Catalytic activity/Vol] 12 U/L Normal 7-38 [facility] Comment on above: Order Comment: Speci men Type: BLOOD SPECIMENOrdering Facility: [facility] Address: [address] [place] [address] Performed By: #### 3 016-3, 18553-6, LIPNF, 84041-0 ####[facility]IA [id number] [place] [address] [place] Anion gap [Moles/Vol] 10 mmol/L Normal 8-15 [facility] Comment on above: Order Comment: Speci men Type: BLOOD SPECIMENOrdering Facility: [facility] Address: [address] [place] [address] Performed By: #### 3 016-3, 72509-3, LIPNF, 38978-9 ####[facility]CLIA [id number] [place] [address] [place] AST [Catalytic activity/Vol] 18 U/L Normal 13-35 [facility] Comment on above: Order Comment: Speci men Type: BLOOD SPECIMENOrdering Facility: [facility] Address: [address] [place] [address] Performed By: #### 3 016-3, 92637-2, LIPNF, 40256-2 ####[facility]CLIA [id number] [place] [address] [place] Bilirubin [Mass/Vol] 0.3 mg/dL Normal 0.2-1.3 [facility] Comment on above: Order Comment: Speci men Type: BLOOD SPECIMENOrdering Facility: [facility] Address: [address] [place] [address] Performed By: #### 3 016-3, 32704-1, LIPNF, ####[facility]CLIA [id number] [place] [address] [place] Calcium [Mass/Vol] 9.4 mg/dL Normal 8.5-10.2 [facility] Comment on above: Order Comment: Speci men Type: BLOOD SPECIMENOrdering Facility: [facility] Address: [address] [place] [address] Performed By: #### 3 016-3, 16431-4, LIPNF, ####[facility]CLIA [id number] [place] [address] [place] Chloride [Moles/Vol] 104 mmol/L Normal 98-107 [facility] Comment on above: Order Comment: Speci men Type: BLOOD SPECIMENOrdering Facility: [facility] Address: [address] [place] [address] Performed By: #### 3 016-3, 59448-1, LIPNF, ####[facility]CLIA [id number] [place] [address] [place] CO2 [Moles/Vol] 25 mmol/L Normal 22-30 [facility] Comment on above: Order Comment: Speci men Type: BLOOD SPECIMENOrdering Facility: [facility] Address: [address] [place] [address] Performed By: #### 3 016-3, 64554-7, LIPNF, ####[facility] LABCLIA [id number] [place] [address] [address] [place] Creatinine [Mass/Vol] 1.02 mg/dL High 0.58-0.96 [facility] Comment on above: Order Comment: Sabino boogie Type: BLOOD SPECIMENOrdering Facility: [facility] Address: [address] [place] [address] Performed By: #### 3 016-3, 02042-0, JOSE MARTIN, ####[facility] LABCLIA [id number] [place] [address] [place] Creatinine and Glomerular filtration rate.predicted panel (S/P/Bld) 54 mL/min/1.73m??? Low >=60 [facility] Comment on above: Order Comment: Sabino boogie Type: BLOOD SPECIMENOrdering Facility: [facility] Address: [address] [place] [address] Result Comment: Gabriela mated Glomerular Filtration Rate [...] actual GFR. Performed By: #### 3 016-3, 76470-8, JOSE MARTIN, ####[facility] LABCLIA [id number] [place] [address] [place] Glucose [Mass/Vol] 95 mg/dL Normal 74-99 [facility] Comment on above: Order Comment: Sabino boogie Type: BLOOD SPECIMENOrdering Facility: [facility] Address: [address] [place] [address] Result Comment: The [place] Diabetes Association (ADA) provides guidance for cutoff [...] Standards of Medical Care in Diabetes 2016, [place] Diabetes Association. Diabetes Care. 2016.39(Suppl 1). Performed By: #### 3 016-3, 82032-0, LIPNF, ####[facility]CLIA [id number] [place] [address] [place] Potassium [Moles/Vol] 5.1 mmol/L Normal 3.7-5.1 [facility] Comment on above: Order Comment: Speci men Type: BLOOD SPECIMENOrdering Facility: [facility] Address: [address] [place] [address] Performed By: #### 3 016-3, 37845-7, LIPNF, ####[facility]CLIA [id number] [place] [address] [place] Protein [Mass/Vol] 6.7 g/dL Normal 6.3-8.0 [facility] Comment on above: Order Comment: Speci men Type: BLOOD SPECIMENOrdering Facility: [facility] Address: [address] [place] [address] Performed By: #### 3 016-3, 64925-0, LIPNF, ####[facility] LABCLIA [id number] [place] [address] [place] Sodium [Moles/Vol] 139 mmol/L Normal 136-144 [facility] Comment on above: Order Comment: Speci men Type: BLOOD SPECIMENOrdering Facility: [facility] Address: [address] [place] [address] Performed By: #### 3 016-3, 76094-8, LIPNF, ####[facility] LABCLIA [id number] [place] [id number] [place] Urea nitrogen [Mass/Vol] 24 mg/dL High 7-21 [facility] Comment on above: Order Comment: Sabino boogie Type: BLOOD SPECIMENOrdering Facility: [facility] Address: [address] [place] [address] Performed By: #### 3 016-3, 81956-7, LIPNF, 07358-2 ####[facility] LABCLIA [id number] [place] [address] [place] HbA1c (Bld)on 07-02-2024 Average glucose Estimated from glycated hemoglobin (Bld) [Mass/Vol] 117 mg/dL Normal [facility] Comment on above: Order Comment: [facility] Type: BLOOD SPECIMENOrdering Facility: [facility] Address: [address] [place] [address] Result Comment: eAG: (Estimated average glucose) is a calculated value from HgbA1c and is wine sales representative of the average blood glucose level in the last 2-3 month period. Performed By: #### 5 5454-3 ####[facility] LABIA [id number] [address] STATES OF [facility] HbA1c (Bld) [Mass fraction] 5.7 % High 4.3-5.6 [facility] Comment on above: Order Comment: Sabino boogie Type: BLOOD SPECIMENOrdering Facility: [facility] Address: [address] [place] [address] Result Comment: Amer [place] Diabetes Association guidelines indicate that patients with HgbA1c in the range 5.7-6.4% are at increased risk for development of diabetes, and intervention by lifestyle modification may be beneficial. HgbA1c greater or equal to 6.5% is considered diagnostic of diabetes. Performed By: #### 5 5454-3 ####[facility] LABIA [id number] [place] [address] [place] LIPID PANEL, NONFASTINGon Cholesterol [Mass/Vol] 136 mg/dL Normal <200 [facility] Comment on above: Order Comment: Sabino keagan Type: BLOOD SPECIMENOrdering Facility: [facility] Address: [address] [place] [address] Result Comment: <200 mg/dL, Desirable 200-239 mg/dL, Borderline high >239 mg/dL, High Performed By: #### 3 016-3, 74871-9, LIPNF, 88426-9 ####[facility] LABCLIA [id number] [place] [address] [place] HDL CHOLESTEROL, NF 41 mg/dL Normal >39 [facility] Comment on above: Order Comment: Speci men Type: BLOOD SPECIMENOrdering Facility: [facility] Address: [address] [place] [address] Result Comment: 40-5 9 mg/dL, Acceptable >59 mg/dL, High: Negative risk factor for coronary heart disease <40 mg/dL, Low: Positive risk factor for coronary heart disease Performed By: #### 3 016-3, 63551-4, LIPNF, ####[facility] LABCLIA [id number] [place] [address] [place] LDL CHOLESTEROL, NF 44 mg/dL Normal <100 [facility] Comment on above: Order Comment: Travisi men Type: BLOOD SPECIMENOrdering Facility: [facility] Address: [address] [place] [address] Result Comment: <100 mg/dL, Optimal 100-129 mg/dL, Near optimal/above optimal 130-159 mg/dL, Borderline high 160-189 mg/dL, High >189 mg/dL, Very high Secondary prevention optimal LDL Cholesterol levels are recommended to be < 70 mg/dL Performed By: #### 3 016-3, 52165-6, LIPNF, 96249-4 ####[facility] LABCLIA [id number] [place] [address] [place] LDL/HDL RATIO, NF 1.07 mg/dL Normal <2.54 [facility] Comment on above: Order Comment: Speci men Type: BLOOD SPECIMENOrdering Facility: [facility] Address: [address] [place] [address] Result Comment: Refe rahdace: 1. National Cholesterol Education Program ATP III Guideline At-A-Glance Quick Desk Reference: National Heart, Lung, and Blood [place]. National Institutes of Health. 2001: NIH Publication No. 01-3305. 2. An International Atherosclerosis Society position paper: global recommendations for the management of dyslipidemia: executive summary, Atherosclerosis. 2014: 232(2):410-413. Performed By: #### 3 016-3, 00417-8, LIPNF, 66216-7 ####[facility] LABCLIA [id number] [place] [address] [place] NON HDL CHOL, NF 95 mg/dL Normal <130 [facility] Comment on above: Order Comment: Speci men Type: BLOOD SPECIMENOrdering Facility: [facility] Address: [address] [place] [address] Result Comment: <130 mg/dL, Optimal 130-159 mg/dL, Near optimal/above optimal 160-189 mg/dL, Borderline high 190-219 mg/dL, High >219 mg/dL, Very high Secondary prevention optimal non HDL Cholesterol levels are recommended to be <100 mg/dL Performed By: #### 3 016-3, 18869-5, LIPNF, ####[facility] LABCLIA [id number] [address] [place] T CHOL/HDL RATIO NF 3.32 mg/dL Normal <5.10 [facility] Comment on above: Order Comment: Speci men Type: BLOOD SPECIMENOrdering Facility: [facility] Address: [address] [place] [address] Performed By: #### 3 016-3, 22419-2, LIPNF, 46965-6 ####[facility] LABCLIA [id number] [place] [address] [place] TRIGLYCERIDES, NF 256 mg/dL High <150 [facility] Comment on above: Order Comment: Speci men Type: BLOOD SPECIMENOrdering Facility: [facility] Address: [address] [place] [address] Result Comment: <150 mg/dL, Normal 150-199 mg/dL, Borderline high 200-499 mg/dL, High >499 mg/dL, Very high Performed By: #### 3 016-3, 36456-7, LIPJODY, ####[facility] LABCLIA [id number] [place] [address] [place] VLDL CHOLESTEROL, NF 51 mg/dL High <30 [facility] Comment on above: Order Comment: Speci men Type: BLOOD SPECIMENOrdering Facility: [facility] Address: [address] [place] [address] Performed By: #### 3 016-3, , JOSE MARTIN, ####[facility] LABCLIA [id number] [place] [address] [place] Magnesium SerPl-mCncon 07-02 Magnesium [Mass/Vol] 2.1 mg/dL Normal 1.7-2.3 [facility] Comment on above: Order Comment: Speci men Type: BLOOD SPECIMENOrdering Facility: [facility] Address: [address] [place] [address] Performed By: #### 3 016-3, , LIPJODY, ####[facility] LABCLIA [id number] [place] [address] [place] TSH SerPl-aCncon 07-02-2024 TSH Qn 2.080 m[IU]/L Normal 0.270-4.200 [facility] Comment on above: Order Comment: Speci men Type: BLOOD SPECIMENOrdering Facility: [facility] Address: [address] [place] [address] Performed By: #### 3 016-3, 04805-5, LIPJODY, ####[facility] LABCLIA [id number] [place] [address] [place] Urinalysis complete panel (U )on 07-02-2024 Bacteria LM.HPF (Urine sed) [#/Area] Negative Normal Negative [facility] Comment on above: Order Comment: Speci men Type: URINE SPECIMENOrdering Facility: [facility] Address: [address] [place] [address] Performed By: #### 2 4356-8 ####[facility] LABCLIA [id number] [place] [address] [place] Bilirubin Ql (U) Negative Normal Negative [facility] Comment on above: Order Comment: Speci men Type: URINE SPECIMENOrdering Facility: [facility] Address: [address] [place] [address] Performed By: #### 2 4356-8 ####[facility] LABCLIA [id number] [place] [address] [place] Clarity (Unsp spec) Clear Normal Clear [facility] Comment on above: Order Comment: Speci men Type: URINE SPECIMENOrdering Facility: [facility] Address: [address] [place] [address] Performed By: #### 2 4356-8 ####[facility] LABCLIA [id number] [place] [address] [place] Color (U) Yellow Normal Yellow [facility] Comment on above: Order Comment: Speci men Type: URINE SPECIMENOrdering Facility: [facility] Address: [address] [place] [address] Performed By: #### 2 4356-8 ####[facility] LABCLIA [id number] [place] [address] [place] Epithelial cells LM.HPF (Urine sed) [#/Area] Few Normal [facility] Comment on above: Order Comment: Speci men Type: URINE SPECIMENOrdering Facility: [facility] Address: [address] [place] [address] Performed By: #### 2 4356-8 ####[facility] LABCLIA [id number] [place] [address] [place] Glucose Test strip (U) [Mass/Vol] Negative Normal Negative [facility] Comment on above: Order Comment: Speci men Type: URINE SPECIMENOrdering Facility: [facility] Address: [address] [place] [address] Performed By: #### 2 4356-8 ####[facility] LABCLIA [id number] [place] [address] [place] Hemoglobin Ql (U) Negative Normal Negative [facility] Comment on above: Order Comment: Speci men Type: URINE SPECIMENOrdering Facility: [facility] Address: [address] [place] [address] Performed By: #### 2 4356-8 ####[facility] LABCLIA [id number] [place] [address] [place] Hyaline casts (Urine sed) [#/Area] 1-3 /LPF Abnormal 0 /LPF [facility] Comment on above: Order Comment: Speci men Type: URINE SPECIMENOrdering Facility: [facility] Address: [address] [place] [address] Performed By: #### 2 4356-8 ####[facility] LABCLIA [id number] [place] [address] [place] Ketones Ql (U) Negative Normal Negative [facility] Comment on above: Order Comment: Speci men Type: URINE SPECIMENOrdering Facility: [facility] Address: [address] [place] [address] Performed By: #### 2 4356-8 ####[facility] LABCLIA [id number] [place] [address] [place] Leukocyte esterase Test strip Ql (U) 2+ Abnormal Negative [facility] Comment on above: Order Comment: Speci men Type: URINE SPECIMENOrdering Facility: [facility] Address: [address] [place] [address] Performed By: #### 2 4356-8 ####[facility] LABCLIA [id number] [place] [address] [place] Nitrite Ql (U) Negative Normal Negative [facility] Comment on above: Order Comment: Speci men Type: URINE SPECIMENOrdering Facility: [facility] Address: [address] [place] [address] Performed By: #### 2 4356-8 ####[facility] LABCLIA [id number] [place] [address] [place] pH (U) 7.0 [pH] Normal <8.5 [facility] Comment on above: Order Comment: Speci men Type: URINE SPECIMENOrdering Facility: [facility] Address: [address] [place] [address] Performed By: #### 2 4356-8 ####[facility] LABCLIA [id number] [place] [address] [place] Protein (U) [Mass/Vol] Negative Normal Negative [facility] Comment on above: Order Comment: Speci men Type: URINE SPECIMENOrdering Facility: [facility] Address: [address] [place] [address] Performed By: #### 2 4356-8 ####[facility] LABIA [id number] [place] [address] [place] RBC LM.HPF (Urine sed) [#/Area] 0-2 /HPF Normal 0-2 /HPF [facility] Comment on above: Order Comment: Speci men Type: URINE SPECIMENOrdering Facility: [facility] Address: [address] [place] [address] Performed By: #### 2 4356-8 ####[facility] LABCLIA [id number] [place] [address] [place] Specific gravity (U) [Rel density] 1.010 Normal 1.005-1.030 [facility] Comment on above: Order Comment: Speci men Type: URINE SPECIMENOrdering Facility: [facility] Address: [address] [place] [address] Performed By: #### 2 4356-8 ####[facility] LABIA [id number] [place] [id number] [place] Urobilinogen Ql (U) 1.0 EU/dL Normal 0.2-1.0 EU/dL [facility] Comment on above: Order Comment: Speci men Type: URINE SPECIMENOrdering Facility: [facility] Address: [address] [place] [address] Performed By: #### 2 4356-8 ####[facility] LABIA [id number] [place] [id number] [place] WBC LM.HPF (Urine sed) [#/Area] 11-20 /HPF Abnormal 0-5 /HPF [facility] Comment on above: Order Comment: Speci men Type: URINE SPECIMENOrdering Facility: [facility] Address: [address] [place] [address] Performed By: #### 2 4356-8 ####[facility] LABIA [id number] [place] [id number] [place] Vit B12 [facility] 01-24-2 025 Cobalamin (Vitamin B12) [Mass/Vol] 618 pg/mL Normal 232-1245 [facility] Comment on above: Order Comment: Speci men Type: BLOOD SPECIMENOrdering Facility: [facility] Address: [address] [place] [address] Performed By: #### 2 132-9 ####[facility] LABIA [id number] [place] [id number] [place] Gastroenterology Visit Repor ton 03-25-2024 Gastroenterology Visit Report [facility] Gastroenterology [address] [place] [address] OFFICE VISIT Date of Service: 03/25/24 MR#: [id number] Acct: [id number] Name: NIDHI NÚÑEZ Rep #: [id number] : 1940 Provider: Kevon Crum DO Age/Sex: 84/F [place] [facility] Status: Signed Intake Vital Signs 01/29/23 15:17 03/21/24 12:28 Height 5 ft 2 in 5 ft 2 in Intake Visit Reasons: 6 month f/u Shank Cutter Required: No Accompanied by: Granddaughter Is patient [...] 2 mg PO DAILY 01/29/23 03/25/24 History wrrmjz-hhggokmf-kpjln se 1 cap PO TID 1 month [...] diarrhea, diffi (more content not included)... Normal [facility] Emergency Department Summary on 03-21-[address] [facility] Medical Records Department [address] [facility] [place] [address] Emergency Department Summary 03/21/24 MR#: [id number] Acct: [id number] Name: NIDHI NÚÑEZ Rep #: [id number] : 1940 84 From: Phani Alex DO [...] pain. Patient states that she hit her [employer] alert button and EMS arrived. Patient endorses [...] 15 Psych: Cooperative, appropriate mood and affect [facility] Medical History Acute gastritis without mention [...] 2 mg PO DAILY 01/29/23 Unknown History chmnto-tcwfbdvb-clvru se 1 cap PO TID 1 month [...] of HTN (more content not included)... Normal [facility] HIP, UNI W/ Pelvis 2-3 Views on 03-21-2024 HIP, UNI W/ Pelvis 2-3 Views [facility] Services [address] [place], [place] [address] HIP, UNI W/ Pelvis 2-3 Views MR#: [id number] Acct: [id number] Name: NIDHI NÚÑEZ Shira Rep #: [id number] : 1940 F 84 From: Clay Murphy MD PCP: Dr. Dustin Hoang MD Status: REG ER Study: HIP, UNI W/ Pelvis 2-3 Views Date of Exam: Exam# [id number] Ordering Dr: Phani Alex DO [id number] STUDY: X-RAY - PELVIS AND LEFT HIP [...] Phani Alex DO; Dr. Dustin Hoang MD Robotype Operator: Signed Normal [facility] Sacrum-Coccyx min 2 Viewson 03-21-2024 Sacrum-Coccyx min 2 Views [facility] Imaging Services [address] [place] [address] Sacrum-Coccyx min 2 Views MR#: [id number] Acct: [id number] Name: NIDHI NÚÑEZ Rep #: [id number] : 1940 F 84 From: Clay Murphy MD PCP: Dr. Dustin Hoang MD Status: REG ER Study: Sacrum-Coccyx min 2 Views Date of Exam: Exam# [id number] Ordering Dr: Phani Alex DO [id number] STUDY: X-RAY - SACRUM/COCCYX REASON FOR EXAM: [...] Phani Alex DO; Dr. Dustin Hoang MD Robotype Operator: Signed Normal [facility] Hips B/L min 2 views w/ Pelv alda 03-01-2024 Hips B/L min 2 views w/ Pelvis [facility] [address] [place], [place] [address] Hips B/L min 2 views w/ Pelvis MR#: [id number] Acct: [id number] Name: NIDHI NÚÑEZ Rep #: [id number] : 1940 F 83 From: Filiberto key DO PCP: Dr. Dustin Hoang MD Status: REG CLI Study: Hips B/L min 2 views w/ Pelvis Date of Exam: 0 03/01/24 Exam# [id number] Ordering Dr: Dustin Giles MD [id number] EXAM: XR BILATERAL HIPS WITH PELVIS WHEN [...] Dustin Hoang MD; Dr. Dustin Giles MD Robotype Operator: Signed Normal [facility] Knee 4 or More Viewson 03-01 Knee 4 or More Views [facility] [address] [place], [place] [address] Knee 4 or More Views MR#: [id number] Acct: [id number] Name: NIDHI NÚÑEZ Rep #: [id number] : 1940 F 83 From: Filiberto key DO PCP: Dr. Dustin Hoang MD Status: REG CLI Study: Knee 4 or More Views Date of Exam: 03/01/24 Exam# [id number] Ordering Dr: Dustin Giles MD [id number] EXAM: XR RIGHT KNEE COMPLETE, 4 OR [...] Dustin Hoang MD; Dr. Dustin Giles MD Robotype Operator: Signed Normal [facility] Knee 4 or More Views [facility] [address] [place], [place] [address] Knee 4 or More Views MR#: [id number] Acct: [id number] Name: NIDHI NÚÑEZ Rep #: [id number] : 1940 F 83 From: Filiberto Ganesh key DO PCP: Dr. Dustin Hoang MD Status: [facility] Study: Knee 4 or More Views Date of Exam: 03/01/24 Exam# [id number] Ordering Dr: Dustin Giles MD [id number] EXAM: XR LEFT KNEE COMPLETE, 4 OR [...] Dustin Hoang MD; Dr. Dustin Giles MD Robotype Operator: Signed [facility] 01-09-2024 [facility] Telephone (FAMPWS) NIDHI NÚÑEZ ([id number]) 1940 F Date Time Provider Department 01/09/24 [...] by ALMA DELIA IRVIN on 01/09/24 Normal [facility] Stress Reporton 01-08-[address] [facility] [address] [place] [address] MR#: [id number] Acct: [id number] Name: NIDHI NÚÑEZ Rep #: [id number] : 1940 83 From: John Alba MD [...] than 70%. This note was generated with Trapit software. It may contain incorrect words, spelling, and punctuation that were not noted in checking the note before signing. 01/08/241528 Date John Alba MD CC: Dr. Dustin Hoang MD Date Dictated: 01/08/241525 Date Transcribed: 01/08/241525 Robotype Operator: MARI Signed Normal [facility] US CAROTID ARTERIES [facility] 12-31-2023 US CAROTID ARTERIES [facility] Non-Invasive Vascular Laboratory [facility] Carotid Duplex Bilateral/Complete Date of service/time: 12/31/2023 [...] Subclavian artery: Patent. Technologist: Chyna Martinez RVT, RDWY Ordering physician: DUSTIN HOANG Interpreting physician: TERESA Ricks DO Final CC [facility] : [id number] micsSISUID See Link below for Image Normal [facility] Tomás 12-16-2023 [facility] Telephone (FAMPWS) NIDHI NÚÑEZ ([id number]) 1940 F Date Time Provider Department 12/16/23 [...] Encounter Status:Closed by JEN[facility]NER [facility] WILTONNIDHI Shira ([id number]) 1940 F Date Time Provider Department 12/16/23 DUSTIN HOANG [facility] During your visit today, we recorded [...] Status:Closed by ANNIE ZAMORA on 12/17/23 Normal [facility] ECHOon 12-16-2023 Echocardiography Echocardiography Report: Transthoracic Echo [facility] Date of service: 12/16/2023 2:30:33 PM COUPLER Ordering physician: DUSTIN HOANG Indication: Chest Pain Technologist: Annie Molina [facility] Interpreting physician: Sandy Carmen MD PATIENT: Name: [...] * * * Final * * * [facility] : [id number] micsSISUID Normal [facility] OXIMET[facility] WITH [...] Pt does not have a fast pace. [facility] Tomás 12-03-2023 [facility] Telephone (SAHILWS) NIDHI NÚÑEZ ([id number]) 1940 F Date Time Provider Department 12/03/23 CHARLIE BRADLEY During your visit today, we recorded the following information about you: Charlie Bradley MA 12/03/2023 7:35 PM Signed Faxed order/Demo for [facility] Nuclear stress test. Referral placed. Charlie Bradley MA Allergies As of Date: 12/03/2023 Noted Allergy Reaction ADHESIVE TAPE (ROSINS) 02/15/2011 2 - Rash CODEINE 10/09/2006 8 - GI Upset HCTZ (THIAZIDES) 07/25/2022 14 - Other: See Comments Comments: Made dizzy Date Reviewed: 12/01/2023 Reviewed by: Dustin Hoang MD - Fully Assessed Reason for Visit: Appointment [186] Cmt: Nuclear Stress Test - [facility] Prescriptions as of 12/03/2023 - metoprolol succinate [...] Encounter Status:Closed by CHARLIE BRADLEY on 12/03/23 [facility] CNOVon 11-28-2023 CNOV Office Visit (FAMPWS ) NIDHI NÚÑEZ ([id number]) 1940 F Date Time Provider Department 11/28/23 [...] status: Former (more content not included)... Normal [facility] Tomás 11-25-2023 [facility] Telephone (FAMPWS) NIDHI NÚÑEZ ([id number]) 1940 F Date Time Provider Department 11/25/23 [...] Status:Closed by BRUNILDA KINSEY on 11/25/23 [facility]ÚÑ[facility] ([id number]) 1940 F Date Time Provider Department 11/25/23 SHAKEEL COLLINS During your visit today, we recorded the following information about you: Shakeel Collins APRN.[employer] DEVELOPER 11/25/2023 8:25 AM Signed Please find out [...] Status:Closed by SHAKEEL COLLINS on 11/25/23 Normal [facility] XR Chest PA and Lateralon IMPRESSION: No developing abnormality or acute process Robotype Operator: GAUTAM Transcribe Date/Time: Nov 25 2023 8:37A Dictated by : CHARLIE FUENTES MD This examination was interpreted and the report reviewed and electronically signed by: CHARLIE FUENTES MD on Nov 25 2023 8:38AM [facility] DIVISION OF RADIOLOGY * * [...] atelectasis or fibrosis in the lingula. Lung espionza are otherwise clear Cardiomediastinal silhouette: Normal cardiomediastinal silhouette. Bones and soft tissues: Unremarkable. DIVISION OF RADIOLOGY Provider, [facility] - 11/25/2023 * * *Final Report* [...] IMPRESSION: No developing abnormality or acute process Robotype Operator: GAUTAM Transcribe Date/Time: Nov 25 2023 8:37A Dictated by : CHARLIE FUENTES MD This examination was interpreted and the report reviewed and electronically signed by: CHARLIE FUENTES MD on Nov 25 2023 8:38AM EST [facility] XR Chest PA and LateralOrder ed By: Ccf Provider on 11-25-2023 [facility]NP[facility] NIDHI NÚÑEZ ([id number]) 1940 F Date Time Provider Department 11/24/23 MAMIE SOTELO [facility] During your visit today, we recorded [...] Status:Closed by MARITZA PENNINGTON on 11/24/23 Normal [facility] CT BRAIN WO IVCONon 11-24-19 CT BRAIN WO IVCON * * *Final Report* * * DATE OF EXAM: Nov 24 2023 9:21AM [facility] 0504 - CT BRAIN WO IVCON [...] base and imaged soft tissues are unremarkable. Photolettering Machine Operator (topogram) images: Noncontributory IMPRESSION: No acute intracranial abnormality. Robotype Operator: [facility] Transcribe Date/Time: Nov 24 2023 10:55A Dictated by : DANIEL JAUREGUI MD This examination was interpreted and the report reviewed and electronically signed by: DANIEL JAUREGUI MD on Nov 24 2023 10:59AM EST [id number] Normal [facility] CT Head WO contraston 2023 IMPRESSION: No acute intracranial abnormality. Robotype Operator: [facility] Transcribe Date/Time: Nov 24 2023 10:55A Dictated by : DANIEL JAUREGUI MD This examination was interpreted and the report reviewed and electronically signed by: DANIEL JAUREGUI MD on Nov 24 2023 10:59AM EST DIVISION OF RADIOLOGY * * *Final Report* * * DATE OF EXAM: Nov 24 2023 9:21AM [facility] 0504 - CT BRAIN WO IVCON [...] base and imaged soft tissues are unremarkable. Photolettering Machine Operator (topogram) images: Noncontributory DIVISION OF RADIOLOGY Provider, [facility] - 11/24/2023 * * *Final Report* * * DATE OF EXAM: Nov 24 2023 9:21AM [facility] 0504 - CT BRAIN WO IVCON [...] base and imaged soft tissues are unremarkable. Photolettering Machine Operator (topogram) images: Noncontributory IMPRESSION IMPRESSION: No acute intracranial abnormality. Robotype Operator: [facility] Transcribe Date/Time: Nov 24 2023 10:55A Dictated by : DANIEL JAUREGUI MD This examination was interpreted and the report reviewed and electronically signed by: DANIEL JAUREGUI MD on Nov 24 2023 10:59AM EST [facility] Radiology Study observation (narrative) [facility] CT Head WO contrastOrdered B y: Ccf Provider on 11-24-2023 [facility] Urinalysis complete panel (U )on 11-24-2023 Bacteria LM.HPF (Urine sed) [#/Area] Negative Normal Negative [facility] Comment on above: Order Comment: Speci men Type: URINE SPECIMENOrdering Facility: [facility] Address: [address] [place] [address] Performed By: #### 2 4356-8 ####[facility] LABCLIA [id number] [place] [address] [place] Bilirubin Ql (U) Negative Normal Negative [facility] Comment on above: Order Comment: Speci men Type: URINE SPECIMENOrdering Facility: [facility] Address: [address] [place] [address] Performed By: #### 2 4356-8 ####[facility] LABCLIA [id number] [place] [address] [place] Clarity (Unsp spec) Clear Normal Clear [facility] Comment on above: Order Comment: Speci men Type: URINE SPECIMENOrdering Facility: [facility] Address: [address] [place] [address] Performed By: #### 2 4356-8 ####[facility] LABCLIA [id number] [place] [address] [place] Color (U) Yellow Normal Yellow [facility] Comment on above: Order Comment: Speci men Type: URINE SPECIMENOrdering Facility: [facility] Address: [address] [place] [address] Performed By: #### 2 4356-8 ####[facility] LABCLIA [id number] [address] [place] Epithelial cells LM.HPF (Urine sed) [#/Area] Moderate Normal [facility] Comment on above: Order Comment: Speci men Type: URINE SPECIMENOrdering Facility: [facility] Address: [address] [place] [address] Performed By: #### 2 4356-8 ####[facility] LABCLIA [id number] [address] [place] Glucose Test strip (U) [Mass/Vol] Negative Normal Negative [facility] Comment on above: Order Comment: Speci men Type: URINE SPECIMENOrdering Facility: [facility] Address: [address] [place] [address] Performed By: #### 2 4356-8 ####[facility] LABCLIA [id number] [place] [address] [place] Hemoglobin Ql (U) Negative Normal Negative [facility] Comment on above: Order Comment: Speci men Type: URINE SPECIMENOrdering Facility: [facility] Address: [address] [place] [address] Performed By: #### 2 4356-8 ####[facility] LABCLIA [id number] [place] [address] [place] Hyaline casts (Urine sed) [#/Area] 0 /[LPF] Normal 0 /LPF [facility] Comment on above: Order Comment: Speci men Type: URINE SPECIMENOrdering Facility: [facility] Address: [address] [place] [address] Performed By: #### 2 4356-8 ####[facility] LABCLIA [id number] [place] [address] [place] Ketones Ql (U) Negative Normal Negative [facility] Comment on above: Order Comment: Speci men Type: URINE SPECIMENOrdering Facility: [facility] Address: [address] [place] [address] Performed By: #### 2 4356-8 ####[facility] LABCLIA [id number] [place] [address] [place] Leukocyte esterase Test strip Ql (U) 2+ Abnormal Negative [facility] Comment on above: Order Comment: Speci men Type: URINE SPECIMENOrdering Facility: [facility] Address: [address] [place] [address] Performed By: #### 2 4356-8 ####[facility] LABCLIA [id number] [place] [address] [place] Nitrite Ql (U) Negative Normal Negative [facility] Comment on above: Order Comment: Speci men Type: URINE SPECIMENOrdering Facility: [facility] Address: [address] [place] [address] Performed By: #### 2 4356-8 ####[facility] LABCLIA [id number] [place] [address] [place] pH (U) 6.0 [pH] Normal <8.5 [facility] Comment on above: Order Comment: Speci men Type: URINE SPECIMENOrdering Facility: [facility] Address: [address] [place] [address] Performed By: #### 2 4356-8 ####[facility] LABCLIA [id number] [place] [address] [place] Protein (U) [Mass/Vol] Negative Normal Negative [facility] Comment on above: Order Comment: Speci men Type: URINE SPECIMENOrdering Facility: [facility] Address: [address] [place] [address] Performed By: #### 2 4356-8 ####[facility] LABCLIA [id number] [place] [address] [place] RBC LM.HPF (Urine sed) [#/Area] 0-2 /HPF Normal 0-2 /HPF [facility] Comment on above: Order Comment: Speci men Type: URINE SPECIMENOrdering Facility: [facility] Address: [address] [place] [address] Performed By: #### 2 4356-8 ####[facility] LABCLIA [id number] [place] [address] [place] Specific gravity (U) [Rel density] 1.011 Normal 1.005-1.030 [facility] Comment on above: Order Comment: Speci men Type: URINE SPECIMENOrdering Facility: [facility] Address: [address] [place] [address] Performed By: #### 2 4356-8 ####[facility] LABCLIA [id number] [place] [address] [place] Urobilinogen Ql (U) 0.2 EU/dL Normal 0.2-1.0 EU/dL [facility] Comment on above: Order Comment: Speci men Type: URINE SPECIMENOrdering Facility: [facility] Address: [address] [place] [address] Performed By: #### 2 4356-8 ####[facility] LABCLIA [id number] [place] [address] [place] WBC LM.HPF (Urine sed) [#/Area] 11-20 /HPF Abnormal 0-5 /HPF [facility] Comment on above: Order Comment: Speci men Type: URINE SPECIMENOrdering Facility: [facility] Address: [address] [place] [address] Performed By: #### 2 4356-8 ####[facility] LABCLIA [id number] [place] [address] [place] CBC W Auto Differential pane l (Bld)on 11-21-2023 Basophils (Bld) [#/Vol] 0.03 10*3/uL Normal <0.11 [facility] Comment on above: Order Comment: Speci men Type: BLOOD SPECIMENOrdering Facility: [facility] Address: [address] [place] [address] Performed By: #### 5 7021-8 ####[facility] LABCLIA [id number] [place] [address] [place] Basophils/100 WBC (Bld) 0.4 % Normal [place] Comment on above: Order Comment: Speci men Type: BLOOD SPECIMENOrdering Facility: [facility] Address: [address] [place] [address] Performed By: #### 5 7021-8 ####[facility] LABCLIA [id number] [place] [address] [place] Differential cell count method Nom (Bld) Auto Normal [facility] Comment on above: Order Comment: Speci men Type: BLOOD SPECIMENOrdering Facility: [facility] Address: [address] [place] [address] Performed By: #### 5 7021-8 ####[facility] LABCLIA [id number] [place] [address] [place] Eosinophils (Bld) [#/Vol] 0.32 10*3/uL Normal <0.46 [facility] Comment on above: Order Comment: Speci men Type: BLOOD SPECIMENOrdering Facility: [facility] Address: [address] [place] [address] Performed By: #### 5 7021-8 ####[facility] LABCLIA [id number] [place] [address] [place] Eosinophils/100 WBC (Bld) 4.6 % Normal [facility] Comment on above: Order Comment: Speci men Type: BLOOD SPECIMENOrdering Facility: [facility] Address: [address] [place] [address] Performed By: #### 5 7021-8 ####[facility] LABCLIA [id number] [place] [address] [place] Erythrocyte distribution width (RBC) [Ratio] 13.4 % Normal 11.5-15.0 [facility] Comment on above: Order Comment: Speci men Type: BLOOD SPECIMENOrdering Facility: [facility] Address: [address] [place] [address] Performed By: #### 5 7021-8 ####[facility] LABIA [id number] [place] [address] [place] Hematocrit (Bld) [Volume fraction] 39.0 % Normal 36.0-46.0 [facility] Comment on above: Order Comment: Speci men Type: BLOOD SPECIMENOrdering Facility: [facility] Address: [address] [place] [address] Performed By: #### 5 7021-8 ####[facility] LABIA [id number] [place] [address] [place] Hemoglobin (Bld) [Mass/Vol] 12.4 g/dL Normal 11.5-15. 5 [facility] Comment on above: Order Comment: Speci men Type: BLOOD SPECIMENOrdering Facility: [facility] Address: [address] [place] [address] Performed By: #### 5 7021-8 ####[facility] LABIA [id number] [place] [address] [place] Immature granulocytes (Bld) [#/Vol] 0.03 10*3/uL Normal <0.10 [facility] Comment on above: Order Comment: Speci men Type: BLOOD SPECIMENOrdering Facility: [facility] Address: [address] [place] [address] Performed By: #### 5 7021-8 ####[facility] LABCLIA [id number] [place] [address] [place] Immature granulocytes/100 WBC (Bld) 0.4 % Normal [facility] Comment on above: Order Comment: Speci men Type: BLOOD SPECIMENOrdering Facility: [facility] Address: [address] [place] [address] Performed By: #### 5 7021-8 ####[facility] LABCLIA [id number] [place] [address] [place] Lymphocytes (Bld) [#/Vol] 1.89 10*3/uL Normal 1.00-4.0 0 [facility] Comment on above: Order Comment: Speci men Type: BLOOD SPECIMENOrdering Facility: [facility] Address: [address] [place] [address] Performed By: #### 5 7021-8 ####[facility] LABCLIA [id number] [place] [address] [place] Lymphocytes/100 WBC (Bld) 27.3 % Normal [facility] Comment on above: Order Comment: Speci men Type: BLOOD SPECIMENOrdering Facility: [facility] Address: [address] [place] [address] Performed By: #### 5 7021-8 ####[facility] LABCLIA [id number] [place] [address] [place] MCH (RBC) [Entitic mass] 27.6 pg Normal 26.0-34.0 [facility] Comment on above: Order Comment: Speci men Type: BLOOD SPECIMENOrdering Facility: [facility] Address: [address] [place] [address] Performed By: #### 5 7021-8 ####[facility] LABCLIA [id number] [place] [address] [place] MCHC (RBC) [Mass/Vol] 31.8 g/dL Normal 30.5-36.0 [facility] Comment on above: Order Comment: Speci men Type: BLOOD SPECIMENOrdering Facility: [facility] Address: [address] [place] [address] Performed By: #### 5 7021-8 ####[facility] LABCLIA [id number] [place] [address] [place] MCV (RBC) [Entitic vol] 86.7 fL Normal 80.0-100.0 [facility] Comment on above: Order Comment: Speci men Type: BLOOD SPECIMENOrdering Facility: [facility] Address: [address] [place] [address] Performed By: #### 5 7021-8 ####[facility] LABIA [id number] [place] [address] [place] Monocytes (Bld) [#/Vol] 0.64 10*3/uL Normal <0.87 [facility] Comment on above: Order Comment: Speci men Type: BLOOD SPECIMENOrdering Facility: [facility] Address: [address] [place] [address] Performed By: #### 5 7021-8 ####[facility] LABIA [id number] [place] [address] [place] Monocytes/100 WBC (Bld) 9.2 % Normal [facility] Comment on above: Order Comment: Speci men Type: BLOOD SPECIMENOrdering Facility: [facility] Address: [address] [place] [address] Performed By: #### 5 7021-8 ####[facility] LABIA [id number] [place] [address] [place] Neutrophils (Bld) [#/Vol] 4.01 10*3/uL Normal 1.45-7.5 0 [facility] Comment on above: Order Comment: Speci men Type: BLOOD SPECIMENOrdering Facility: [facility] Address: [address] [place] [address] Performed By: #### 5 7021-8 ####[facility] LABCLIA [id number] [place] [address] [place] Neutrophils/100 WBC (Bld) 58.1 % Normal [facility] Comment on above: Order Comment: Speci men Type: BLOOD SPECIMENOrdering Facility: [facility] Address: [address] [place] [address] Performed By: #### 5 7021-8 ####[facility] LABCLIA [id number] [place] [address] [place] Nucleated RBC (Bld) [#/Vol] 10*3/uL Normal <0.01 [facility] Comment on above: Order Comment: Speci men Type: BLOOD SPECIMENOrdering Facility: [facility] Address: [address] [place] [address] Performed By: #### 5 7021-8 ####[facility] LABCLIA [id number] [place] [address] [place] Nucleated RBC/100 WBC (Bld) [Ratio] 0.0 /100 WBC Normal [facility] Comment on above: Order Comment: Speci men Type: BLOOD SPECIMENOrdering Facility: [facility] Address: [address] [place] [address] Performed By: #### 5 7021-8 ####[facility] LABCLIA [id number] [place] [address] [place] Platelet mean volume (Bld) [Entitic vol] 10.9 fL Normal 9.0-12.7 [facility] Comment on above: Order Comment: Speci men Type: BLOOD SPECIMENOrdering Facility: [facility] Address: [address] [place] [address] Performed By: #### 5 7021-8 ####[facility] LABIA [id number] [place] [address] [place] Platelets (Bld) [#/Vol] 218 10*3/uL Normal 150-400 [facility] Comment on above: Order Comment: Speci men Type: BLOOD SPECIMENOrdering Facility: [facility] Address: [address] [place] [address] Performed By: #### 5 7021-8 ####[facility] LABIA [id number] [place] [address] [place] RBC (Bld) [#/Vol] 4.50 10*6/uL Normal 3.90-5.20 [facility] Comment on above: Order Comment: Speci men Type: BLOOD SPECIMENOrdering Facility: [facility] Address: [address] [place] [address] Performed By: #### 5 7021-8 ####[facility] LABIA [id number] [place] [address] [facility] [place] WBC (Bld) [#/Vol] 6.92 10*3/uL Normal 3.70-11.00 [facility] Comment on above: Order Comment: Speci men Type: BLOOD SPECIMENOrdering Facility: [facility] Address: [address] [place] [address] Performed By: #### 5 7021-8 ####[facility] LABIA [id number] [address] [place] CNOVon 11-21-2023 CNOV Office Visit (FAMPWS ) NIDHI NÚÑEZ ([id number]) 1940 F Date Time Provider Department 11/21/23 11:00 AM DUSTIN HOANG During your visit today, we recorded the following information about you: Pulse Respiration Blood pressure Weight 60/minute 18/minute 162/92 72.1 kg Dustin Haong MD 11/24/2023 5:[address] Chief Complaint Patient presents with: Follow Up HPI Nidihmarilee Núñez is a 83 year old female [...] and go (more content not included)... Normal [facility] Comprehensive metabolic 2000 panelon 11-21-2023 Albumin [Mass/Vol] 4.3 g/dL Normal 3.9-4.9 [facility] Comment on above: Order Comment: Speci men Type: BLOOD SPECIMENOrdering Facility: [facility] Address: [address] [place] [address] Performed By: #### 2 132-9, 3016-3, 29846-6, 74001-8 ####[facility]UN[facility] [id number] [place] [address] [place] ALP [Catalytic activity/Vol] 56 U/L Normal 34-123 [facility] Comment on above: Order Comment: Speci men Type: BLOOD SPECIMENOrdering Facility: [facility] Address: [address] [place] [address] Performed By: #### 2 132-9, 3016-3, 16445-6, 39407-5 ####[facility] LABIA [id number] [place] [address] [place] ALT [Catalytic activity/Vol] 11 U/L Normal 7-38 [facility] Comment on above: Order Comment: Speci men Type: BLOOD SPECIMENOrdering Facility: [facility] Address: [address] [place] [address] Performed By: #### 2 132-9, 3016-3, 07244-9, 72965-6 ####[facility] LABCLIA [id number] [address] [address] [place] Anion gap [Moles/Vol] 10 mmol/L Normal 8-15 [facility] Comment on above: Order Comment: Speci men Type: BLOOD SPECIMENOrdering Facility: [facility] Address: [address] [place] [address] Performed By: #### 2 132-9, 3016-3, 36946-3, 85424-6 ####[facility] LABCLIA [id number] [address] [address] [place] AST [Catalytic activity/Vol] 20 U/L Normal 13-35 [facility] Comment on above: Order Comment: Speci men Type: BLOOD SPECIMENOrdering Facility: [facility] Address: [address] [place] [address] Performed By: #### 2 132-9, 3016-3, 41904-1, 30767-7 ####[facility] LABCLIA [id number] [address] [address] [place] Bilirubin [Mass/Vol] 0.5 mg/dL Normal 0.2-1.3 [facility] Comment on above: Order Comment: Speci men Type: BLOOD SPECIMENOrdering Facility: [facility] Address: [address] [place] [address] Performed By: #### 2 132-9, 3016-3, 26167-5, 11739-5 ####[facility] LABCLIA [id number] [address] [address] [place] Calcium [Mass/Vol] 9.9 mg/dL Normal 8.5-10.2 [facility] Comment on above: Order Comment: Speci men Type: BLOOD SPECIMENOrdering Facility: [facility] Address: [address] [place] [address] Performed By: #### 2 132-9, 3016-3, 08937-5, 38044-2 ####[facility] LABCLIA [id number] [address] [address] [place] Chloride [Moles/Vol] 104 mmol/L Normal 98-107 [facility] Comment on above: Order Comment: Speci men Type: BLOOD SPECIMENOrdering Facility: [facility] Address: [address] [place] [address] Performed By: #### 2 132-9, 3016-3, 55162-7, 05042-0 ####[facility] LABCLIA [id number] [place] [address] [place] CO2 [Moles/Vol] 26 mmol/L Normal 22-30 [facility] Comment on above: Order Comment: Speci men Type: BLOOD SPECIMENOrdering Facility: [facility] Address: [address] [place] [address] Performed By: #### 2 132-9, 3016-3, 73699-4, 99617-3 ####[facility] LABCLIA [id number] [place] [address] [place] Creatinine [Mass/Vol] 1.07 mg/dL High 0.58-0.96 [facility] Comment on above: Order Comment: Speci men Type: BLOOD SPECIMENOrdering Facility: [facility] Address: [address] [place] [address] Performed By: #### 2 132-9, 3016-3, 62717-5, 91650-3 ####[facility] LABIA [id number] [place] [address] [place] Creatinine and Glomerular filtration rate.predicted panel (S/P/Bld) 51 mL/min/1.73m??? Low >=60 [facility] Comment on above: Order Comment: Speci men Type: BLOOD SPECIMENOrdering Facility: [facility] Address: [address] [place] [address] Result Comment: Gabriela mated Glomerular Filtration Rate [...] GFR. Performed By: #### 2 132-9, 3016-3, 56820-6, 35701-1 ####[facility] LABCLIA [id number] [address] [address] [place] Glucose [Mass/Vol] 101 mg/dL High 74-99 [facility] Comment on above: Order Comment: Sabino boogie Type: BLOOD SPECIMENOrdering Facility: [facility] Address: [address] [place] [address] Result Comment: The [place] Diabetes Association (ADA) provides guidance for cutoff [...] Standards of Medical Care in Diabetes 2016, [place] Diabetes Association. Diabetes Care. 2016.39(Suppl 1). Performed By: #### 2 132-9, 3016-3, 76132-3, 99361-0 ####[facility] LABCLIA [id number] [address] [address] [place] Potassium [Moles/Vol] 4.7 mmol/L Normal 3.7-5.1 [facility] Comment on above: Order Comment: Sabino boogie Type: BLOOD SPECIMENOrdering Facility: [facility] Address: [address] [place] [address] Performed By: #### 2 132-9, 3016-3, 88318-4, 83997-6 ####[facility] LABCLIA [id number] [address] [address] [place] Protein [Mass/Vol] 7.0 g/dL Normal 6.3-8.0 [facility] Comment on above: Order Comment: Speci men Type: BLOOD SPECIMENOrdering Facility: [facility] Address: [address] [place] [address] Performed By: #### 2 132-9, 3016-3, 99483-6, 01764-9 ####[facility] LABIA [id number] [place] [address] [place] Sodium [Moles/Vol] 140 mmol/L Normal 136-144 [facility] Comment on above: Order Comment: Speci men Type: BLOOD SPECIMENOrdering Facility: [facility] Address: [address] [place] [address] Performed By: #### 2 132-9, 3016-3, 17790-4, 45276-5 ####[facility] [id number] [place] [address] [place] Urea nitrogen [Mass/Vol] 24 mg/dL High 7-21 [facility] Comment on above: Order Comment: Speci men Type: BLOOD SPECIMENOrdering Facility: [facility] Address: [address] [place] [address] Performed By: #### 2 132-9, 3016-3, 79921-3, 09707-2 ####[facility] LABIA [id number] [address] [address] [place] ECG COMPLETEon 11-21-2023 Atrial Rate 56 BPM [facility] Calculated P [place] -8 degrees [facility] Calculated R [place] -17 degrees [facility] Calculated T [place] 95 degrees [facility] P-R Interval 180 ms [facility] QRS Duration 90 ms [facility] QT Interval 466 ms [facility] QTC Calculation (Bazett) 449 ms [facility] Ventricular Rate 56 BPM [facility] SINUS BRADYCARDIA MINIMAL VOLTAGE CRITERIA FOR LVH, MAY BE NORMAL VARIANT ANTEROLATERAL T WAVE ABNORMALITY ABNORMAL ECG Confirmed by DUSTIN THAKKAR M.D. ([id number]) on 11/21/2023 4:11:55 PM [facility] NAME : NIDHI NÚÑEZ PID : [id number] : 1940 Gender : Female Race : ORD : [id number] Procedure Date : Nov 21 2023 12:18:04 [...] : CHARLIE BRADLEY, [facility] ECG COMPLETE Ventricular Rate : 5 6 BPM Atrial Rate : 56 BPM P-R Interval : 180 ms QRS Duration : 90 ms Q-T Interval : 466 ms QTC Calculation(Bazett) : 449 ms Calculated P [place] : -8 degrees Calculated R [place] : -17 degrees Calculated T [place] : 95 degrees SINUS BRADYCARDIA MINIMAL VOLTAGE CRITERIA FOR LVH, MAY BE NORMAL VARIANT ANTEROLATERAL T WAVE ABNORMALITY ABNORMAL ECG Confirmed by DUSTIN THAKKAR M.D. ([id number]) on 11/21/2023 4:11:55 PM NAME : NIDHI NÚÑEZ PID : [id number] : 1940 Gender : Female Race : ORD : [id number] Procedure Date : Nov 21 2023 12:18:04 [...] HOANG MD Acquired by : CHARLIE BRADLEY, [facility] HbA1c (Bld)on 11-21-2023 Average glucose Estimated from glycated hemoglobin (Bld) [Mass/Vol] 111 mg/dL Normal [facility] Comment on above: Order Comment: Sabino boogie Type: BLOOD SPECIMENOrdering Facility: [facility] Address: [address] [place] [address] Result Comment: eAG: (Estimated average glucose) is a calculated value from HgbA1c and is wine sales representative of the average blood glucose level in the last 2-3 month period. Performed By: #### 5 5454-3 ####[facility] LABCLIA [id number] [place] [address] [place] HbA1c (Bld) [Mass fraction] 5.5 % Normal 4.3-5.6 [facility] Comment on above: Order Comment: Sabino boogie Type: BLOOD SPECIMENOrdering Facility: [facility] Address: [address] [place] [address] Result Comment: [place] Diabetes Association guidelines indicate that patients with HgbA1c in the range 5.7-6.4% are at increased risk for development of diabetes, and intervention by lifestyle modification may be beneficial. HgbA1c greater or equal to 6.5% is considered diagnostic of diabetes. Performed By: #### 5 5454-3 ####[facility] LABCLIA [id number] [place] [address] [place] Lipid 1996 panelon Cholesterol [Mass/Vol] 144 mg/dL Normal <200 [facility] Comment on above: Order Comment: Sabino boogie Type: BLOOD SPECIMENOrdering Facility: [facility] Address: [address] [place] [address] Result Comment: <200 mg/dL, Desirable 200-239 mg/dL, Borderline high >239 mg/dL, High Performed By: #### 2 132-9, 3016-3, 22676-6, 56077-1 ####[facility] LABCLIA [id number] [place] [address] [place] Cholesterol in HDL [Mass/Vol] 50 mg/dL Normal >39 [facility] Comment on above: Order Comment: Travisjess boogie Type: BLOOD SPECIMENOrdering Facility: [facility] Address: [address] [place] [address] Result Comment: 40-5 9 mg/dL, Acceptable >59 mg/dL, High: Negative risk factor for coronary heart disease <40 mg/dL, Low: Positive risk factor for coronary heart disease Performed By: #### 2 132-9, 3016-3, 23850-7, 23775-5 ####[facility] LABCLIA [id number] [place] [address] [place] Cholesterol in LDL [Mass/Vol] 58 mg/dL Normal <100 [facility] Comment on above: Order Comment: Sabino keagan Type: BLOOD SPECIMENOrdering Facility: [facility] Address: [address] [place] [address] Result Comment: <100 mg/dL, Optimal 100-129 mg/dL, Near optimal/above optimal 130-159 mg/dL, Borderline high 160-189 mg/dL, High >189 mg/dL, Very high Secondary prevention optimal LDL Cholesterol levels are recommended to be < 70 mg/dL Performed By: #### 2 132-9, 3016-3, 83553-2, 25101-0 ####[facility] LABCLIA [id number] [place] [address] [place] Cholesterol in LDL/Cholesterol in HDL [Mass ratio] 1.16 {ratio} Normal <2.54 [facility] Comment on above: Order Comment: Sabino boogie Type: BLOOD SPECIMENOrdering Facility: [facility] Address: [address] [place] [address] Result Comment: Refe radhace: 1. National Cholesterol Education Program ATP III Guideline At-A-Glance Quick Desk Reference: National Heart, Lung, and Blood [place]. National Institutes of Health. 2001: NIH Publication No. 01-3305. 2. An International Atherosclerosis Society position paper: global recommendations for the management of dyslipidemia: executive summary, Atherosclerosis. 2014: 232(2):410-413. Performed By: #### 2 132-9, 3016-3, 18704-2, 32063-7 ####[facility] LABCLIA [id number] [address] [address] [place] Cholesterol in VLDL [Mass/Vol] 36 mg/dL High <30 [facility] Comment on above: Order Comment: Speci men Type: BLOOD SPECIMENOrdering Facility: [facility] Address: [address] [place] [address] Performed By: #### 2 132-9, 3016-3, 44943-1, 62661-0 ####[facility] LABCLIA [id number] [place] [address] [place] Cholesterol non HDL [Mass/Vol] 94 mg/dL Normal <130 [facility] Comment on above: Order Comment: Speci men Type: BLOOD SPECIMENOrdering Facility: [facility] Address: [address] [place] [address] Result Comment: <130 mg/dL, Optimal 130-159 mg/dL, Near optimal/above optimal 160-189 mg/dL, Borderline high 190-219 mg/dL, High >219 mg/dL, Very high Secondary prevention optimal non HDL Cholesterol levels are recommended to be <100 mg/dL Performed By: #### 2 132-9, 3016-3, 30545-4, 93928-4 ####[facility] LABCLIA [id number] [place] [address] [place] Cholesterol.total/Cholester ol in HDL [Mass ratio] 2.88 {ratio} Normal <5.10 [facility] Comment on above: Order Comment: Speci men Type: BLOOD SPECIMENOrdering Facility: [facility] Address: [address] [place] [address] Performed By: #### 2 132-9, 3016-3, 61383-6, 73142-9 ####[facility] LABCLIA [id number] [address] [address] [place] FASTING TIME 15 hrs Normal [facility] Comment on above: Order Comment: Speci men Type: BLOOD SPECIMENOrdering Facility: [facility] Address: [address] [place] [address] Performed By: #### 2 132-9, 3016-3, 56249-7, 08528-6 ####[facility] LABCLIA [id number] [place] [address] [place] Triglyceride [Mass/Vol] 181 mg/dL High <150 [facility] Comment on above: Order Comment: Speci men Type: BLOOD SPECIMENOrdering Facility: [facility] Address: [address] [place] [address] Result Comment: <150 mg/dL, Normal 150-199 mg/dL, Borderline high 200-499 mg/dL, High >499 mg/dL, Very high Performed By: #### 2 132-9, 3016-3, 81029-4, 83956-6 ####[facility] LABCLIA [id number] [place] [address] [place] THYROID STIMULATING HORMONEo n 11-21-2023 TSH Qn 2.370 m[IU]/L [facility] TSH Qnon 11-21-2023 Interpretation and review of laboratory results Normal [facility] TSH SerPl-aCncon 11-21-2023 TSH Qn 2.370 m[IU]/L Normal 0.270-4.200 [facility] Comment on above: Order Comment: Speci men Type: BLOOD SPECIMENOrdering Facility: [facility] Address: [address] [place] [address] Performed By: #### 2 132-9, 3016-3, 90184-6, 37979-6 ####[facility] LABCLIA [id number] [place] [address] [place] Vit B12 SerPl-mCncon 024 Cobalamin (Vitamin B12) [Mass/Vol] 481 pg/mL Normal 232-1245 [facility] Comment on above: Order Comment: Speci men Type: BLOOD SPECIMENOrdering Facility: [facility] Address: [address] [place] [address] Performed By: #### 2 132-9, 3016-3, 24273-6, 72497-5 ####[facility] LABCLIA [id number] [address] [id number] [id number] [place] XR CHEST 2V [...] IMPRESSION: No developing abnormality or acute process Robotype Operator: GAUTAM Transcribe Date/Time: Nov 25 2023 8:37A Dictated by : CHARLIE FUENTES MD This examination was interpreted and the report reviewed and electronically signed by: CHARLIE FUENTES MD on Nov 25 2023 8:38AM EST [id number] Normal [facility] XR Chest PA and Lateralon Radiology Study observation (narrative) [facility] Gastroenterology Visit Repor ton 10-01-2023 Gastroenterology Visit Report [facility] Gastroenterology [address] [place] [address] OFFICE VISIT Date of Service: 10/01/23 MR#: [id number] Acct: [id number] Name: NIDHI NÚÑEZ Rep #: [id number] : 1940 Provider: Kevon Crum DO Age/Sex: [...] itchy eyes (more content not included)... Normal [facility] HSV+VZV DNA SHIRAZ+probe Ql (Un sp spec)on 04-22-2023 HSV 1 DNA SHIRAZ+probe Ql (Unsp spec) Not detected Not Detected [facility] HSV 2 DNA SHIRZA+probe Ql (Unsp spec) Not detected Not Detected [facility] VZV DNA SHIRAZ+probe Ql (Unsp spec) Not detected Not Detected [facility] XR CHEST 2V FRONTAL/LATon [facility] XR Chest PA and Lateralon IMPRESSION: Small patchy density in the mid right lung which may represent atelectasis. Infection is not excluded. Robotype Operator: GAUTAM Transcribe Date/Time: Apr 21 2023 1:47P Dictated by : DANIEL CHAVEZ MD This examination was interpreted and the report reviewed and electronically signed by: DANIEL CHAVEZ MD on Apr 21 2023 1:59PM [facility] DIVISION OF RADIOLOGY * * [...] the thoracic spine. DIVISION OF RADIOLOGY Provider, [facility] - 04/21/2023 * * *Final Report* [...] may represent atelectasis. Infection is not excluded. Robotype Operator: GAUTAM Transcribe Date/Time: Apr 21 2023 1:47P Dictated by : DANIEL CHAVEZ MD This examination was interpreted and the report reviewed and electronically signed by: DANIEL CHAVEZ MD on Apr 21 2023 1:59PM EST [facility] Radiology Study observation (narrative) [facility] XR Chest PA and LateralOrder ed By: Ccf Provider on 04-21-2023 [facility] Absolute lymphocyte countOrd ered By: Flynn Castillo on 01-29-2023 Lymphocytes Auto (Unsp spec) [#/Vol] 1.74 10*3/uL 0.83-4.51 [facility] Basophil percentageOrdered B y: Flynn Castillo on 01-29-2023 Basophils/100 WBC (Bld) 0.3 % 0-1 [facility] Chloride [Moles/Vol] 102 mmol/L 98-107 [facility] Eosinophils/100 WBC (Bld) 2.4 % 0-5 [facility] Glucose [Mass/Vol] 113 mg/dL 74-106 [facility] Comment on above: Fasting Glucose resu lt from 100 to 125 mg/dL suggests IMPAIRED HOMEOSTASIS per A.D.A. criteria. Neutrophils (Bld) [#/Vol] 6.3 10*3/uL 2.0-7.7 [facility] Neutrophils/100 WBC (Bld) 68.3 % 47-70 [facility] Potassium [Moles/Vol] 4.6 mmol/L 3.5-5.1 [facility] Sodium [Moles/Vol] 137 mmol/L 136-145 [facility] WBC (Bld) [#/Vol] 9.2 10*3/uL 4.4-11.0 [facility] Blood erythrocytes count (nu mber/volume)Ordered By: Flynn Castillo on 01-29-2023 RBC (Bld) [#/Vol] 4.80 10*6/uL 4.2-5.[address] [facility] Blood hemoglobin measurement (mass/volume)Ordered By: Flynn Castillo on 01-29-2023 Hemoglobin (Bld) [Mass/Vol] 13.9 g/dL 12.0-15. 0 [facility] Blood lymphocytes/100 leukoc ytesOrdered By: Flynn Castillo on 01-29-2023 Lymphocytes/100 WBC (Bld) 18.9 % 19-41 [facility] Blood monocytes/100 leukocyt esOrdered By: Flynn Castillo on 01-29-2023 Monocytes/100 WBC (Bld) 8.6 % 0-10 [facility] Blood platelet mean volumeOr dered By: Flynn Castillo on 01-29-2023 Platelet mean volume (Bld) [Entitic vol] 10.3 fL 6.2-12.0 [facility] Determination of erythrocyte mean corpuscular volume (MCV)Ordered By: Flynn Castillo on 01-29-2023 MCV (RBC) [Entitic vol] 88.1 fL 81-99 [facility] Hematocrit Auto (Bld) [Volum e fraction]Ordered By: Flynn Castillo on 01-29-2023 Hematocrit (Bld) [Volume fraction] 42.3 % 37-47 [facility] Laboratory - Chemistry and C hemistry - challengeOrdered By: Flynn Castillo on 01-29-2023 CO2 [Moles/Vol] 29.0 mmol/L 21.0-32.0 [facility] Natriuretic peptide B (Bld) [Mass/Vol] 49.3 pg/mL 0-100 [facility] Urea nitrogen/Creatinine [Mass ratio] 31.8 mg/mg 10-20 [facility] Laboratory - Hematology and Cell countsOrdered By: Flynn Castillo on 01-29-2023 Erythrocyte distribution width (RBC) [Entitic vol] 44.1 fL 35.1-43.9 [facility] Erythrocyte distribution width (RBC) [Ratio] 13.6 % 11.6-14.6 [facility] Immature granulocytes/100 WBC (Bld) 1.500 % 0.0-0.9 [facility] Comment on above: IG% - Immature Granu locytes (promyelocytes, myelocytes and metamyelocytes) > 1% indicates that a LEFT SHIFT is Present. MCH (RBC) [Entitic mass] 29.0 pg 27.0-32.0 [facility] Nucleated RBC/100 WBC (Bld) [Ratio] 0 % 0-5 [facility] MCHC Auto (RBC) [Mass/Vol]Or dered By: Flynn Castillo on 01-29-2023 MCHC (RBC) [Mass/Vol] 32.9 g/dL 32-36 [facility] No Panel InformationOrdered By: Flynn Castillo on 08-23-2023 Troponin I High Sensitivity 6 pg/mL 3.0-54.0 [facility] Comment on above: Please Note: New Paty t Units and Gender Specific Reference Ranges. For more information see Policy Stat Procedure [address] High Sensitivity Troponin (TNIH) and attachments. Estimated Creatinine Clearance Calc 30.65 ml/min [facility] Estimated GFR (MDRD) Amer 61 mL/min >60 [facility] Comment on above: GFR Calc Estimated GFR (MDRD) Non-Af Amer 50 mL/min >60 [facility] Comment on above: Non- GFR Calc Platelets bldOrdered By: Parth Castillo on 01-29-2023 Platelets (Bld) [#/Vol] 234 10*3/uL 150-450 [facility] Serum or plasma calcium carl urement (mass/volume)Ordered By: Flynn Castillo on 01-29-2023 Calcium [Mass/Vol] 9.4 mg/dL 8.5-10.1 [facility] Serum or plasma creatinine m easurement (mass/volume)Ordered By: Flynn Castillo on 01-29-2023 Creatinine [Mass/Vol] 1.10 mg/dL 0.55-1.02 [facility] Comment on above: The validity of the calculated GFR & GFRAA in patients over 70 years has not been determined. Clinical correlation is essential. Serum or plasma urea nitroge n measurement (mass/volume)Ordered By: Flynn Castillo on 01-29-2023 Urea nitrogen [Mass/Vol] 35 mg/dL 7-18 [facility] Thin prep Papanicolaou smear with manual screeningOrdered By: Flynn Castillo on 01-29-2023 Thin prep Papanicolaou smear with manual screening 6 5-15 [facility] Basic metabolic 2000 panelon 11-21-2022 Anion gap [Moles/Vol] 14 mmol/L 9 - 18 mmol/L [facility] Calcium [Mass/Vol] 10.0 mg/dL 8.5 - 10. 2 mg/dL [facility] Chloride [Moles/Vol] 104 mmol/L 97 - 10 5 mmol/L [facility] CO2 [Moles/Vol] 22 mmol/L 22 - 30 mmol/L [facility] Creatinine [Mass/Vol] 1.07 mg/dL High 0.58 - 0.96 mg/dL [facility] Estimated Glomerular Filtration Rate 52 mL/min/1.73m Low >=60 mL/min/1.73 m [facility] Glucose [Mass/Vol] 84 mg/dL 74 - 99 mg/dL [facility] Potassium [Moles/Vol] 4.9 mmol/L 3.7 - 5.1 mmol/L [facility] Sodium [Moles/Vol] 140 mmol/L 136 - 144 mmol/L [facility] Urea nitrogen [Mass/Vol] 20 mg/dL 7 - 21 mg/dL [facility] T4 FREE/FREE THYROXon 2022 Free T4 [Mass/Vol] 1.4 ng/dL 0.9 - 1.7 ng/dL [facility] TSH BLDon 11-21-2022 TSH Qn 2.850 m[IU]/L 0.270 - 4.200 mIU/L [facility] CBC W Auto Differential pane l (Bld)on 11-20-2022 Basophils (Bld) [#/Vol] <0.11 k/uL [facility] Basophils/100 WBC (Bld) 0.3 % [facility] Differential cell count method Nom (Bld) Auto [facility] Eosinophils (Bld) [#/Vol] 0.27 10*3/uL <0.46 k/ uL [facility] Eosinophils/100 WBC (Bld) 4.5 % [facility] Erythrocyte distribution width (RBC) [Ratio] 13.5 % 11.5 - 15.0 % [facility] Hematocrit (Bld) [Volume fraction] 40.7 % 36.0 - 46.0 % [facility] Hemoglobin (Bld) [Mass/Vol] 13.4 g/dL 11.5 - 15.5 g/dL [facility] Immature granulocytes (Bld) [#/Vol] 0.03 10*3/uL <0.10 k/uL [facility] Immature granulocytes/100 WBC (Bld) 0.5 % [facility] Lymphocytes (Bld) [#/Vol] 1.53 10*3/uL 1. 00 - 4.00 k/uL [facility] Lymphocytes/100 WBC (Bld) 25.8 % [facility] MCH (RBC) [Entitic mass] 28.6 pg 26. 0 - 34.0 pg [facility] MCHC (RBC) [Mass/Vol] 32.9 g/dL 30.5 - 36.0 g/dL [facility] MCV (RBC) [Entitic vol] 87.0 fL 80.0 - 100.0 fL [facility] Monocytes (Bld) [#/Vol] 0.59 10*3/uL <0.87 k/uL [facility] Monocytes/100 WBC (Bld) 9.9 % [facility] Neutrophils (Bld) [#/Vol] 3.50 10*3/uL 1. 45 - 7.50 k/uL [facility] Neutrophils/100 WBC (Bld) 59.0 % [facility] Nucleated RBC (Bld) [#/Vol] <0.01 k/ uL [facility] Nucleated RBC/100 WBC (Bld) [Ratio] 0.0 /100 WBC [facility] Platelet mean volume (Bld) [Entitic vol] 10.4 fL 9.0 - 12.7 fL [facility] Platelets (Bld) [#/Vol] 205 10*3/uL 150 - 400 k/uL [facility] RBC (Bld) [#/Vol] 4.68 10*6/uL 3.90 - 5.2 0 m/uL [facility] WBC (Bld) [#/Vol] 5.94 10*3/uL 3.70 - 11.00 k/uL [facility] Clostridium difficile detect ion by polymerase chain reactionOrdered By: Kevon Crum on 11-18-2022 C. difficile DNA SHIRAZ+probe Ql (Unsp spec) [facility] No Panel InformationOrdered By: Kevon Crum on 11-18-2022 Giardia Antigen (JONATHAN) [facility] Stool Calprotectin 83 ug/g 0-120 [facility] Comment on above: Concentration Interp retation Follow-Up< 5 - 50 ug/g Normal None>50 -120 ug/g Borderline Re-evaluate in 4-6 weeks >120 ug/g Abnormal Repeat as clinically indicatedPerformed at: [facility] [id number] Director: Andres De Luna PhD, Phone: [phone] at: [facility] [address] [id number] Director: Suki Winslow MD, Phone: [phone] Stool Neutral Fats Normal . [facility] Comment on above: Normal (<60 Droplets /HPF) Stool Pancreatic Elastase 74 >200 [facility] Comment on above: Result Units: ug Alie st./gResults verified by repeat testing Severe Pancreatic Insufficiency: <100 Moderate Pancreatic Insufficiency: 100 - 200 Normal: >200Performed at: [address] [id number] Director: Suki Winslow MD, Phone: [phone] Ova and parasitesOrdered By: Kevon Crum on 11-18-2022 Ova and parasites identified LM Nom (Unsp spec) [facility] Qualitative fecal fat or lip idsOrdered By: Kevon Crum on 11-18-2022 Fat Ql (Stl) Increased . [facility] Comment on above: Normal (<100 Droplet s/HPF) Stool enteric pathogen panel by probe and target amplification methodOrdered By: Kevon Crum on 11-18-2022 Gastrointestinal pathogens panel SHIRAZ+probe (Stl) [facility] Stool gastrointestinal hemog lobin detection by immunologic methodOrdered By: Kevon Crum on 11-18-2022 Lower GI hemoglobin IA Ql (Stl) [facility] Stool lactoferrin detection by immunoassayOrdered By: Kevon Crum on 11-18-2022 Lactoferrin IA Ql (Stl) [facility] Atypical perinuclear antineu trophil cytoplasmic antibodies measurementOrdered By: Kevon Crum on 11-15-2022 Neutrophil cytoplasmic Ab.perinuclear.atypical IF (S) [Titer] <1:20 titer Neg:<1:20 [facility] Comment on above: The atypical pANCA p attern has been observed in asignificant percentage of patients with ulcerative colitis,primary sclerosing cholangitis and autoimmune hepatitis.Performed at: [address] [id number] Director: Andres De Luna PhD, Phone: [phone] Basophil percentageOrdered B y: Kevon Crum on 11-15-2022 Bilirubin [Mass/Vol] 0.60 mg/dL 0.20-1.00 [facility] Comment on above: For patients on eltr ombopag therapy, use of Dimension [address] TBIL is not recommended. Chloride [Moles/Vol] 107 mmol/L 98-107 [facility] Glucose [Mass/Vol] 85 mg/dL 74-106 [facility] LDH [Catalytic activity/Vol] 182 U/L 84-246 [facility] Potassium [Moles/Vol] 4.4 mmol/L 3.5-5.1 [facility] Protein [Mass/Vol] 7.4 g/dL 6.4-8.2 [facility] Sodium [Moles/Vol] 139 mmol/L 136-145 [facility] Erythrocyte sedimentation ra teOrdered By: Kevon Crum on 11-15-2022 ESR (Bld) [Velocity] 16 mm/h 0-30 [facility] Laboratory - Chemistry and C hemistry - challengeOrdered By: Kevon Crum on 11-15-2022 ALP [Catalytic activity/Vol] 47 U/L 45-117 [facility] ALT [Catalytic activity/Vol] 24 U/L 13-56 [facility] CO2 [Moles/Vol] 27.0 mmol/L 21.0-32.0 [facility] Globulin (S) [Mass/Vol] 3.7 g/dL 2.2-4.2 [facility] Urea nitrogen/Creatinine [Mass ratio] 21.0 mg/mg 10-20 [facility] No Panel InformationOrdered By: Kevon Crum on 11-15-2022 Endomysial IgA Antibody Negative Negative [facility] Estimated GFR (MDRD) Amer 64 mL/min >60 [facility] Comment on above: GFR Calc Estimated GFR (MDRD) Non-Af Amer 53 mL/min >60 [facility] Comment on above: Non- GFR Calc Thyroid Stimulating Hormone (TSH) 1.82 uIU/mL 0.358-3.74 [facility] Serum IgA measurement (units /volume)Ordered By: Kevon Crum on 11-15-2022 IgA Qn (S) 295 mg/dL 64-422 [facility] Serum classic neutrophil cyt oplasmic antibody assay (units/volume)Ordered By: Kevon Crum on 11-15-2022 Neutrophil cytoplasmic Ab.classic Qn (S) 1:160 titer Neg:<1:20 [facility] Serum or plasma C reactive p rotein measurement (mass/volume)Ordered By: Kevon Crum on 11-15-2022 CRP [Mass/Vol] mg/L 0.0-3.0 [facility] Comment on above: C-Reactive Protein ( CRP) provides useful information for thediagnosis, therapy and monitoring of inflammatory processesand associated diseases. For the evaluation of Relative Riskfor Cardiovascular Disease, a High Sensitivity CRP (HSCRP)should be ordered. Serum or plasma albumin carl urement (mass/volume)Ordered By: Kevon Crum on 11-15-2022 Albumin [Mass/Vol] 3.7 g/dL 3.2-5.0 [facility] Serum or plasma albumin/glob ulin mass ratioOrdered By: Kevon Crum on 11-15-2022 Albumin/Globulin [Mass ratio] 1.0 {ratio} 0.9-2.4 [facility] Serum or plasma calcium carl urement (mass/volume)Ordered By: Kevon Crum on 11-15-2022 Calcium [Mass/Vol] 9.5 mg/dL 8.5-10.1 [facility] Serum or plasma creatinine m easurement (mass/volume)Ordered By: Kevon Crum on 11-15-2022 Creatinine [Mass/Vol] 1.05 mg/dL 0.55-1.02 [facility] Comment on above: The validity of the calculated GFR & GFRAA in patients over 70 years has not been determined. Clinical correlation is essential. Serum or plasma ferritin herbert surement (mass/volume)Ordered By: Kevon Crum on 11-15-2022 Ferritin [Mass/Vol] 105 ng/mL 8- [facility] Serum or plasma urea nitroge n measurement (mass/volume)Ordered By: Kevon Crum on 11-15-2022 Urea nitrogen [Mass/Vol] 22 mg/dL 7-18 [facility] Serum perinuclear neutrophil cytoplasmic antibody titer by immunofluorescenceOrdered By: Kevon Crum on 11-15-2022 Neutrophil cytoplasmic Ab.perinuclear IF (S) [Titer] <1:20 titer Neg:<1:20 [facility] Comment on above: The presence of posi tive fluorescence exhibiting P-ANCA orC-ANCA patterns alone is not specific for the diagnosis ofWegener's Granulomatosis (WG) or microscopic polyangiitis.Decisions about treatment should not be based solely onANCA IFA results. The International ANCA Group Consensusrecommends follow up testing of positive sera with both IN-3 and MPO-ANCA enzyme immunoassays. As many as 5% serumsamples are positive only by EIA. Ref. AM J Clin Aegmgg4711;111:507-513. Serum tissue transglutaminas e IgA antibody assay (units/volume)Ordered By: Kevon Crum on 11-15-2022 tTG IgA Qn (S) 4 U/mL 0-3 [facility] Comment on above: Negative 0 - 3 Weak Positive 4 - 10 Positive >10 Tissue Transglutaminase (tTG) has been identified as the endomysial antigen. Studies have demonstr- ated that endomysial IgA antibodies have over 99% specificity for gluten sensitive enteropathy. Thin prep Papanicolaou smear with manual screeningOrdered By: Kevon Crum on 11-15-2022 Thin prep Papanicolaou smear with manual screening 19 U/L 15-37 [facility] Thin prep Papanicolaou smear with manual screening 5 5-[address] [facility] [address] ABDOMEN W IVCONon 023 [facility] No Panel Informationon 08-15 Troponin I High Sensitivity 7 pg/mL 3.0-54.0 [facility] Comment on above: Please Note: New Paty t Units and Gender Specific Reference Ranges. For more information see Policy Stat Procedure [address] High Sensitivity Troponin (TNIH) and attachments. Tomás 08-01-2022 [facility] Telephone [facility] NIDHI NÚÑEZ ([id number]) 1940 F Date Time Provider Department 08/01/22 [...] biliary tract [K83.8] Order(s):CT ABDOMEN W IVCON [3184297] Order #: [id number] FUTURE iv contrast (will be provided with [...] EachRfl: 0 CREATININE BLD [SQCRET] Order #: [id number] FUTURE Prescriptions as of 08/01/2022 - iv [...] A1c [R73 (more content not included)... Normal [facility] US ABD RT UPPER QUADRANTon 0 07-30-2022 [facility] [facility] Comprehensive metabolic 2000 panelon 12-20-2021 Albumin [Mass/Vol] 4.4 g/dL 3.9 - 4.9 g/dL [facility] ALP [Catalytic activity/Vol] 55 U/L 34 - 123 U/L [facility] ALT [Catalytic activity/Vol] 12 U/L 7 - 38 U/L [facility] Anion gap [Moles/Vol] 15 mmol/L 9 - 18 mmol/L [facility] AST [Catalytic activity/Vol] 20 U/L 13 - 35 U/L [facility] Bilirubin [Mass/Vol] 0.5 mg/dL 0.2 - 1 .3 mg/dL [facility] Calcium [Mass/Vol] 10.4 mg/dL High 8.5 - 10. 2 mg/dL [facility] Chloride [Moles/Vol] 101 mmol/L 97 - 10 5 mmol/L [facility] CO2 [Moles/Vol] 25 mmol/L 22 - 30 mmol/L [facility] Creatinine [Mass/Vol] 0.91 mg/dL 0.58 - 0.96 mg/dL [facility] Estimated Glomerular Filtration Rate 63 mL/min/1.73m >=60 mL/min/1.73 m [facility] Glucose [Mass/Vol] 90 mg/dL 74 - 99 mg/dL [facility] Potassium [Moles/Vol] 4.6 mmol/L 3.7 - 5.1 mmol/L [facility] Protein [Mass/Vol] 7.5 g/dL 6.3 - 8.0 g/dL [facility] Sodium [Moles/Vol] 141 mmol/L 136 - 144 mmol/L [facility] Urea nitrogen [Mass/Vol] 21 mg/dL 7 - 21 mg/dL [facility] LIPID PANEL, NONFASTINGon Cholesterol [Mass/Vol] 159 mg/dL <200 mg/dL [facility] HDL Cholesterol, Nonfasting 47 mg/dL >39 mg/d L [facility] LDL Cholesterol, Nonfasting 75 mg/dL <100 mg/ dL [facility] LDL/HDL Ratio, Nonfasting 1.60 mg/dL <2.54 mg/d L [facility] Non HDL Cholesterol, Nonfasting 112 mg/dL <130 mg/dL [facility] Total Chol/HDL Ratio, Nonfasting 3.38 mg/dL <5.10 mg/dL [facility] Triglycerides, Nonfasting 183 mg/dL High <150 mg/dL [facility] VLDL Cholesterol, Nonfasting 37 mg/dL High <30 mg/dL [facility] MAGNESIUM BLDon 12-20-2021 Magnesium [Mass/Vol] 2.3 mg/dL 1.7 - 2 .3 mg/dL [facility] VITAMIN B12 BLOODon 12-21-19 Cobalamin (Vitamin B12) [Mass/Vol] 300 pg/mL 232-1,245 pg/mL [facility] CBC W Auto Differential pane l (Bld)on 12-19-2021 Abs Immature Gran 0.04 k/uL <0.10 k/uL [facility] Basophils (Bld) [#/Vol] 0.05 10*3/uL <0.11 k/uL [facility] Basophils/100 WBC (Bld) 0.5 % [facility] Differential cell count method Nom (Bld) Auto [facility] Eosinophils (Bld) [#/Vol] 0.31 10*3/uL <0.46 k/ uL [facility] Eosinophils/100 WBC (Bld) 3.1 % [facility] Erythrocyte distribution width (RBC) [Ratio] 13.4 % 11.5 - 15.0 % [facility] Hematocrit (Bld) [Volume fraction] 44.8 % 36.0 - 46.0 % [facility] Hemoglobin (Bld) [Mass/Vol] 14.2 g/dL 11.5 - 15.5 g/dL [facility] Immature Gran % 0.4 % [facility] Lymphocytes (Bld) [#/Vol] 2.01 10*3/uL 1. 00 - 4.00 k/uL [facility] Lymphocytes/100 WBC (Bld) 20.0 % [facility] MCH (RBC) [Entitic mass] 28.5 pg 26. 0 - 34.0 pg [facility] MCHC (RBC) [Mass/Vol] 31.7 g/dL 30.5 - 36.0 g/dL [facility] MCV (RBC) [Entitic vol] 90.0 fL 80.0 - 100.0 fL [facility] Monocytes (Bld) [#/Vol] 0.88 10*3/uL High <0.87 k/uL [facility] Monocytes/100 WBC (Bld) 8.8 % [facility] Neutrophils (Bld) [#/Vol] 6.74 10*3/uL 1. 45 - 7.50 k/uL [facility] Neutrophils/100 WBC (Bld) 67.2 % [facility] Nucleated RBC (Bld) [#/Vol] 10*3/uL <0.01 k/ uL [facility] Nucleated RBC/100 WBC (Bld) [Ratio] 0.0 /100 WBC [facility] Platelet mean volume (Bld) [Entitic vol] 10.6 fL 9.0 - 12.7 fL [facility] Platelets (Bld) [#/Vol] 242 10*3/uL 150 - 400 k/uL [facility] RBC (Bld) [#/Vol] 4.98 10*6/uL 3.90 - 5.2 0 m/uL [facility] WBC (Bld) [#/Vol] 10.03 10*3/uL 3.70 - 11.00 k/uL [facility] Vital Signs Date Time Vital Sign Value Performing Clinician Facility 07-02-2024 13:46-0500 Body mass index (BMI) [Ratio] 30.24 kg/m2 Shakeel Collins APRN.[employer] DEVELOPER Work Phone: [facility] 07-02-2024 13:46-0500 Body weight 73.03 kg Shakeel Collins PLANT CONTROL AIDE.[employer] DEVELOPER Work Phone: [facility] 07-02-2024 13:46-0500 Diastolic blood pressure 70 mm[Hg] Shakeel Collins PLANT CONTROL AIDE.[employer] DEVELOPER Work Phone: [facility] 07-02-2024 13:46-0500 Heart rate 55 /min Shakeel Collins PLANT CONTROL AIDE.[employer] DEVELOPER Work Phone: [facility] 07-02-2024 13:46-0500 Systolic blood pressure 127 mm[Hg] Shakeel Collins PLANT CONTROL AIDE.[employer]IKVIEW DEVELOPER Work Phone: [facility] 11-28-2023 13:06-0400 Diastolic blood pressure 80 mm[Hg] Dustin Hoang MD Work Phone: [facility] 11-28-2023 13:06-0400 Systolic blood pressure 142 mm[Hg] Dustin Hoang MD Work Phone: [facility] 11-28-2023 12:36-0400 Body mass index (BMI) [Ratio] 30.05 kg/m2 Dustin Hoang MD Work Phone: [facility] 11-28-2023 12:36-0400 Body weight 72.58 kg Dustin Hoang MD Work Phone: [facility] 11-28-2023 12:36-0400 Heart rate 49 /min Dustin Hoang MD Work Phone: [facility] 11-28-2023 12:36-0400 Respiratory rate 16 /min Dustin Hoang MD Work Phone: [facility] 11-28-2023 12:36-0400 SaO2% (BldA) [Mass fraction] 94 % Dustin Hoang MD Work Phone: [facility] 11-24-2023 13:09-0400 Body height 155.4 cm Pulm Wstr Work Phone: [facility] 11-24-2023 13:09-0400 Body mass index (BMI) [Ratio] 30.05 kg/m2 Pulm Wstr Work Phone: [facility] 11-24-2023 13:09-0400 Body weight 72.58 kg Pulm Wstr Work Phone: [facility] 11-24-2023 13:09-0400 Heart rate 59 /min Pulm Wstr Work Phone: [facility] 11-24-2023 13:09-0400 Respiratory rate 14 /min Pulm Wstr Work Phone: [facility] 11-24-2023 13:09-0400 SaO2% (BldA) [Mass fraction] 99 % Pulm Wstr Work Phone: [facility] 11-21-2023 12:41-0400 Diastolic blood pressure 92 mm[Hg] Dustin Hoang MD Work Phone: [facility] 11-21-2023 12:41-0400 Systolic blood pressure 162 mm[Hg] Dustin Hoang MD Work Phone: [facility] 11-21-2023 11:01-0400 Body mass index (BMI) [Ratio] 28.17 kg/m2 Dustin Hoang MD Work Phone: [facility] 11-21-2023 11:01-0400 Body weight 72.12 kg Dustin Hoang MD Work Phone: [facility] 11-21-2023 11:01-0400 Heart rate 60 /min Dustin Hoang MD Work Phone: [facility] 11-21-2023 11:01-0400 Respiratory rate 18 /min Dustin Hoang MD Work Phone: [facility] 04-21-2023 13:13-0500 Body temperature 98.4 [degF] Monica Bogner PA-C Work Phone: [facility] 04-21-2023 13:13-0500 Body weight 71.85 kg Monica Bogner PA-C Work Phone: [facility] 04-21-2023 13:13-0500 Diastolic blood pressure 78 mm[Hg] Monica Bogner PA-C Work Phone: [facility] 04-21-2023 13:13-0500 Heart rate 92 /min Monica Bogner PA-C Work Phone: [facility] 04-21-2023 13:13-0500 Respiratory rate 19 /min Monica Bogner PA-C Work Phone: [facility] 04-21-2023 13:13-0500 SaO2% (BldA) [Mass fraction] 95 % Monica Bogner PA-C Work Phone: [facility] 04-21-2023 13:13-0500 Systolic blood pressure 124 mm[Hg] Monica Bogner PA-C Work Phone: [facility] 01-29-2023 18:32-0400 Diastolic blood pressure 70 mm[Hg] Dr. Dustin Joyner Work Phone: [facility] 01-29-2023 18:32-0400 Heart rate 52 /min Dr. Dustin Joyner Work Phone: [facility] 01-29-2023 18:32-0400 Respiratory rate 18 /min Dr. Dustin Joyner Work Phone: [facility] 01-29-2023 18:32-0400 Systolic blood pressure 138 mm[Hg] Dr. Dustin Joyner Work Phone: [facility] 01-29-2023 15:17-0400 Body height 157.[address] Dustin Joyner Work Phone: [facility] 01-29-2023 15:17-0400 Body mass index (BMI) [Ratio] 30.2 kg/m2 Dr. Dustin Joyner Work Phone: [facility] 01-29-2023 15:17-0400 Body temperature 97.8 [degF] Dr. Dustin Joyner Work Phone: [facility] 01-29-2023 15:17-0400 Body weight 74.[address] Dustin Joyner Work Phone: [facility] 01-29-2023 15:17-0400 SaO2% (BldA) [Mass fraction] 96 % Dr. Dustin Joyner Work Phone: [facility] 11-20-2022 09:58-0400 Body weight 75.75 kg Dustin Hoang MD Work Phone: [facility] 11-20-2022 09:58-0400 Diastolic blood pressure 86 mm[Hg] Dustin Hoang MD Work Phone: [facility] 11-20-2022 09:58-0400 Heart rate 56 /min Dustin Hoang MD Work Phone: [facility] 11-20-2022 09:58-0400 Respiratory rate 16 /min Dustin Hoang MD Work Phone: [facility] 11-20-2022 09:58-0400 SaO2% (BldA) [Mass fraction] 97 % Dustin Hoang MD Work Phone: [facility] 11-20-2022 09:58-0400 Systolic blood pressure 128 mm[Hg] Dustin Hoang MD Work Phone: [facility] 08-15-2022 10:34-0500 Body weight 75.75 kg hSakeel Collins APRN.[employer] DEVELOPER Work Phone: [facility] 08-15-2022 10:34-0500 Diastolic blood pressure 96 mm[Hg] Shakeel Collins PLANT CONTROL AIDE.[employer] DEVELOPER Work Phone: [facility] 08-15-2022 10:34-0500 Heart rate 64 /min Shakeel Collins PLANT CONTROL AIDE.[employer] DEVELOPER Work Phone: [facility] 08-15-2022 10:34-0500 Respiratory rate 16 /min Shakeel Colilns PLANT CONTROL AIDE.[employer] DEVELOPER Work Phone: [facility] 08-15-2022 10:34-0500 Systolic blood pressure 158 mm[Hg] Shakeel Collins PLANT CONTROL AIDE.[employer] DEVELOPER Work Phone: [facility] 07-25-2022 11:49-0500 Diastolic blood pressure 92 mm[Hg] Dustin Hoang MD Work Phone: [facility] 07-25-2022 11:49-0500 Systolic blood pressure 160 mm[Hg] Dustin Hoang MD Work Phone: [facility] 07-25-2022 11:31-0500 Body weight 76.66 kg Dustin Hoang MD Work Phone: [facility] 07-25-2022 11:31-0500 Heart rate 54 /min Dustin Hoang MD Work Phone: [facility] 07-25-2022 11:31-0500 Respiratory rate 16 /min Dustin Hoang MD Work Phone: [facility] 02-26-2022 11:53-0400 Diastolic blood pressure 76 mm[Hg] Mi Nurse Work Phone: [facility] 02-26-2022 11:53-0400 Heart rate 57 /min Mi Nurse Work Phone: [facility] 02-26-2022 11:53-0400 Systolic blood pressure 127 mm[Hg] Mi Nurse Work Phone: [facility] 02-13-2022 11:17-0400 Diastolic blood pressure 85 mm[Hg] Mi Nurse Work Phone: [facility] 02-13-2022 11:17-0400 Heart rate 50 /min Mi Nurse Work Phone: [facility] 02-13-2022 11:17-0400 Systolic blood pressure 197 mm[Hg] Mi Nurse Work Phone: [facility] 01-09-2022 09:49-0400 Diastolic blood pressure 86 mm[Hg] Mi Nurse Work Phone: [facility] 01-09-2022 09:49-0400 Heart rate 54 /min Mi Nurse Work Phone: [facility] 01-09-2022 09:49-0400 Systolic blood pressure 159 mm[Hg] Mi Nurse Work Phone: [facility] 12-19-2021 11:33-0400 Diastolic blood pressure 77 mm[Hg] Dustin Hoang MD Work Phone: [facility] 12-19-2021 11:33-0400 Systolic blood pressure 152 mm[Hg] Dustin Hoang MD Work Phone: [facility] 12-19-2021 10:10-0400 Body weight 74.39 kg Dustin Hoang MD Work Phone: [facility] 12-19-2021 10:10-0400 Heart rate 60 /min Dustin Hoang MD Work Phone: [facility] 12-19-2021 10:10-0400 Respiratory rate 16 /min Dustin Hoang MD Work Phone: [facility] 10-30-2021 13:39-0400 Body temperature 96.91 [degF] Flores Athy PA-C Work Phone: [facility] 10-30-2021 13:39-0400 Body weight 74.84 kg Flores Athy PA-C Work Phone: [facility] 10-30-2021 13:39-0400 Diastolic blood pressure 80 mm[Hg] Flores Athy PA-C Work Phone: [facility] 10-30-2021 13:39-0400 Heart rate 62 /min Flores Athy PA-C Work Phone: [facility] 10-30-2021 13:39-0400 Respiratory rate 16 /min Flores Athy PA-C Work Phone: [facility] 10-30-2021 13:39-0400 SaO2% (BldA) [Mass fraction] 96 % Flores Athy PA-C Work Phone: [facility] 10-30-2021 13:39-0400 Systolic blood pressure 132 mm[Hg] Flores Athy PA-C Work Phone: [facility] Encounters Encounter Date Encounter Type Care Provider Facility Start: 11-11-2024 End: 11-11-2024 Refolivia CHRISTOPHER-C Work Phone: [facility] [place] Comment on above: Refill Request Start: 09-27-2024 End: 09-27-2024 Refill Mamie Sotelo PA-C Work Phone: [facility] [place] Comment on above: Refill Request Start: 08-13-2024 End: 08-13-2024 Refill Mamie Sotelo PA-C Work Phone: [facility] [place] Comment on above: Refill Request Start: 07-13-2024 End: 07-14-2024 Refill Dustin Hoang MD Work Phone: [facility] [place] Comment on above: Refill Request Start: 07-12-2024 End: 07-12-2024 Telephone encounter Shakeel Collins APRN.CNP Work Phone: [facility] [place] Comment on above: Results Start: 07-09-2024 End: 07-09-2024 [facility] Start: 07-05-2024 End: 07-08-2024 Telephone encounter Shakeel Collins APRN.LISA Work Phone: [facility] [place] Comment on above: Results Start: 07-02-2024 End: 07-02-2024 Patient encounter procedure Shakeel Collins APRN.[employer] DEVELOPER Work Phone: [facility] [place] Comment on above: Advance directive di scussed [...] contraction) Start: 07-02-2024 End: 07-02-2024 ambulatory [facility] Facility:[facility] Start: 06-30-2024 End: 06-30-2024 Refill Dustin Hoang MD Work Phone: [facility] [place] Comment on above: Refill Request Start: 05-19-2024 End: 05-19-2024 Refill Dustin Hoang MD Work Phone: [facility] [place] Comment on above: Refill Request Start: 04-21-2024 End: 04-21-2024 Refill Dustin Hoang MD Work Phone: [facility] [place] Comment on above: Refill Request Start: 03-25-2024 End: 03-25-2024 ambulatory [place]ev[place] Crum [place] [place]: 03-23-2024 End: 03-23-2024 Chart abstracting Charlie Bradley [facility] [place] [facility] Comment on above: ED Follow-up Start: 03-21-2024 End: 03-21-2024 [facility] Start: 03-03-2024 End: 03-03-2024 Refill Mamie CHRISTOPHER-Tom Work Phone: [facility] [place] Comment on above: Refill Request Start: 03-02-2024 End: 03-02-2024 Chart abstracting Charlie Bradley MA [facility] [place] [facility] Comment on above: Outside Testing ([facility] - xray) Start: 03-01-2024 End: 03-01-2024 ambulatory Dustin Giles Facility:[facility] Start: 02-18-2024 End: 02-18-2024 Refill Mmaie CHRISTOPHER-C Work Phone: [facility] [place] Comment on above: Refill Request Start: 02-17-2024 End: 02-18-2024 Refill Mamie CHRISTOPHER-C Work Phone: [facility] [place] Comment on above: Refill Request Start: 01-29-2024 End: 01-29-2024 [facility] Comment on above: Stress Test Instruct ions for 02/02/24 Start: 01-29-2024 End: 01-29-2024 E-mail encounter from caregiver Nurse Card Admin [facility] Work Phone: Cardiology Start: 01-09-2024 Telephone encounter Charlie Bradley MA [facility] [place] Comment on above: Results Start: 01-08-2024 ambulatory John Alba [place] Start: 01-06-2024 ambulatory John Alba [place] Start: 01-06-2024 End: 01-06-2024 ambulatory Dustin Hoang Facility:[facility] Start: 12-31-2023 End: 12-31-2023 ambulatory DUSTIN HOANG Facility:[facility] Start: 12-16-2023 End: 12-16-2023 ambulatory Pulm Lab [facility] Work Phone: [facility]M [facility] Comment on above: Spirometry Start: 12-16-2023 End: 12-16-2023 Patient encounter procedure [facility] Work Phone: [facility] Start: 12-16-2023 Telephone encounter Dustin Hoang MD Work Phone: [facility] [place] Comment on above: Results Start: 12-03-2023 Telephone encounter Charlie Bradley MA [facility] [place] Comment on above: Appointment (Nuclear Stress Test - [facility] ) Start: 11-28-2023 End: 11-28-2023 Patient encounter procedure [facility] Comment [facility] above: Essential hypertensi on (Primary Dx); [place] (dyspnea on exertion); Chest pain, unspecified type; Dizziness Start: 11-28-2023 End: 11-28-2023 ambulatory DUSTIN HOANG Facility:[facility] Start: 11-25-2023 Telephone encounter Shakeel bates APRN.CNP Work Phone: [facility] [place] Comment on above: Results Start: 11-24-2023 Telephone encounter Mamie house PA-C Work Phone: [facility] [place] Comment on above: Results Start: 11-24-2023 End: 11-24-2023 Patient encounter procedure [facility] Work Phone: [facility]UL[facility] Start: 11-24-2023 End: 11-24-2023 ambulatory Pulm Lab [facility] Work Phone: [facility]UL[facility] LAB [facility] Comment on above: Spirometry Start: 11-24-2023 End: 11-24-2023 Subsequent hospital visit by physician Ct [facility] (I-Stat) Work Phone: Cat Scan Comment on above: Ataxia [R27.0] Start: 11-21-2023 End: 11-21-2023 Subsequent hospital visit by physician Xr [facility] [place] Work Phone: Radiology Comment on above: Chest pressure [R07. 89] Start: 11-21-2023 End: 11-21-2023 ambulatory DUSTIN HOANG Facility:[facility] Start: 11-21-2023 End: 11-21-2023 Patient encounter procedure Dustin Hoang MD Work Phone: [facility] Comment on above: Essential hypertensi on [...] Medication management Start: 11-18-2023 Refill Shakeel arana APRN.[employer] DEVELOPER Work Phone: [facility] [place] Comment on above: Refill Request Start: 10-01-2023 End: 10-01-2023 ambulatory Kevon Crum [place] Start: 09-29-2023 Refill Shakeel arana APRN.[employer] DEVELOPER Work Phone: [facility] Comment on above: Refill Request Start: 08-13-2023 Refill Mamie Correa on PA-C Work Phone: [facility] [place] Comment on above: Refill Request Start: 07-29-2023 Refill Dustin murillo MD Work Phone: [facility] [place] Comment on above: Refill Request Start: 04-21-2023 End: 04-21-2023 Subsequent hospital visit by physician Xr [facility] [place] Work Phone: Radiology Comment on above: Acute cough [R05.1] Start: 04-21-2023 End: 04-21-2023 Office outpatient visit 25 minutes Monica Tan PA-C Work Phone: [facility] Comment on above: Rash (Primary Dx); Acute cough Start: 04-07-2023 Telephone encounter Dustin Hoang MD Work Phone: [facility] Comment on above: Medication Problem Start: 04-03-2023 Telephone encounter Dustin Hoang MD Work Phone: [facility] Comment on above: Medication Problem Refill Request Start: 03-20-2023 Refill Mamie Correa on PA-C Work Phone: [facility] Comment on above: Refill Request Start: 01-30-2023 Telephone encounter Charlie Bradley MA [facility] Comment on above: Results Start: 01-29-2023 End: 01-29-2023 Emergency department patient visit Dr. Dustin Joyner Work Phone: [facility] Work Phone: Start: 01-29-2023 Non-patient / Non-visit Dr. Dioni Joyner Work Phone: [facility] Start: 01-29-2023 Telephone encounter Dustin Hoang MD Work Phone: [facility] Comment on above: Patient Update Start: 01-29-[address] [facility] Work Phone: Start: 01-16-2023 Refill Shakeel arana APRN.CNP Work Phone: [facility] Comment on above: Refill Request Start: 01-08-2023 Telephone encounter Dustin Hoang MD Work Phone: [facility] Comment on above: Results Start: 12-30-2022 End: 12-30-[address] Dustin Joyner Work Phone: [facility] Work Phone: Start: 12-30-2022 End: 12-30-[address] Dustin Joyner Work Phone: [facility]-Cat Scan, [facility] Work Phone: Start: 12-17-2022 ambulatory [facility] Start: 11-29-2022 Chart abstracting Dustin fontenot MD Work Phone: [facility] [place] Comment on above: Results (Labs /) Start: 11-21-2022 Chart abstracting Dustin fontenot MD Work Phone: [facility] [place] Comment on above: Outside [id number] Ordered Start: 11-21-2022 Telephone encounter Dustin Hoang MD Work Phone: [facility] Comment on above: Results Start: 11-20-2022 End: 11-20-2022 Patient encounter procedure Dustin Hoang MD Work Phone: [facility] Comment on above: Essential hypertensi on (Primary Dx); Mixed hyperlipidemia; Gastroesophageal reflux disease without esophagitis; Elevated hemoglobin A1c; Low serum vitamin B12; Angina pectoris (HCC); SOB (shortness of breath); Palpitations; Encounter for immunization; Advance directive discussed with patient; Medication management; Stage 3a chronic kidney disease (HCC) Start: 11-19-2022 Chart abstracting Dust[facility]enot [facility] Comment on above: Results (Labs /) Start: 11-18-2022 End: 11-18-[address] Dustin Joyner Work Phone: [facility]-Laboratory, Specimen Start: 11-15-2022 End: 11-15-[address] Dustin Joyner Work Phone: [facility] Work Phone: Start: 11-15-2022 End: 11-15-[address] Dustin Joyner Work Phone: [facility] Start: 09-24-2022 Telephone encounter Shakeel bates APRN.[employer] DEVELOPER Work Phone: [facility] Comment on above: Results (Opened in e rror) Start: 09-20-2022 Telephone encounter Shakeel bates PLANT CONTROL AIDE.[employer] DEVELOPER Work Phone: [facility] Comment on above: Results Start: 08-29-2022 Refill Dustin murillo MD Work Phone: [facility] Comment on above: Refill Request Start: 08-21-2022 Chart abstracting Dustin fontenot MD Work Phone: [facility] Comment on above: Results Start: 08-16-2022 Telephone encounter Shakeel bates APRN.[employer] DEVELOPER Work Phone: [facility] Comment on above: Results Start: 08-15-2022 End: 08-15-2022 Patient encounter procedure Shakeel Collins PLANT CONTROL AIDE.QLIKVIEW DEVELOPER Work Phone: [facility] Comment on above: Chest pain, unspecif ied type (Primary Dx); Essential hypertension Start: 08-15-2022 End: 08-15-2022 [facility] Work Phone: [facility] Comment on above: Hydronephrosis, unsp ecified hydronephrosis type [N13.30] Start: 08-01-2022 Telephone encounter Dustin Hoang MD Work Phone: [facility] Comment on above: Results Start: 07-31-2022 Chart abstracting Dustin fontenot MD Work Phone: [facility] Comment on above: Consult (Consult ort ho ) Start: 07-30-2022 End: 07-30-2022 Subsequent hospital visit by physician [facility] Mob 2 Work Phone: Radiology Comment on above: Epigastric pain [R10 .13] Start: 07-26-2022 Telephone encounter Dustin Hoang MD Work Phone: [facility] Comment on above: Results Start: 07-25-2022 End: 07-25-2022 Patient encounter procedure Dustin Hoang MD Work Phone: [facility] Comment on above: Epigastric pain (Awa marcellus Dx); Gastroesophageal reflux disease without esophagitis; Essential hypertension; Mixed hyperlipidemia; Low serum vitamin B12; Hypercalcemia; Elevated hemoglobin A1c; Lumbar pain; Thoracic spine pain; Numbness and tingling of right leg; Balance problems Start: 04-25-2022 Refill Mamie Correa on PA-C Work Phone: [facility] Comment on above: Refill Request Start: 03-28-2022 Refill Dustin murillo MD Work Phone: [facility] Comment on above: Refill Request Start: 03-12-2022 ambulatory Dustin murillo MD Work Phone: [facility] Comment on above: Blood pressure Start: 02-26-2022 Telephone encounter Dustin Hoang MD Work Phone: [facility] Comment on above: Blood Pressure Check Start: 02-26-2022 End: 02-26-2022 Nursing evaluation of patient and report Mi Nurse Work Phone: [facility] Comment on above: Essential hypertensi on (Primary Dx) Start: 02-13-2022 Telephone encounter Dustin Hoang MD Work Phone: [facility] Comment on above: Blood Pressure Check Start: 02-13-2022 End: 02-13-2022 Nursing evaluation of patient and report Mi Nurse Work Phone: [facility] Comment on above: Essential hypertensi on (Primary Dx) Start: 01-14-2022 Telephone encounter Dustin Hoang MD Work Phone: [facility] Comment on above: Blood Pressure Check Start: 01-09-2022 End: 01-09-2022 Nursing evaluation of patient and report Mi Nurse Work Phone: [facility] [place] Comment on above: Essential hypertensi on (Primary Dx) Start: 01-06-2022 Telephone encounter Dustin Hoang MD Work Phone: [facility] [place] Comment on above: Results Start: 12-23-2021 Telephone encounter Dustin Hoang MD Work Phone: [facility] [place] Comment on above: Results Start: 12-19-2021 End: 12-19-2021 Patient encounter procedure Dustin Hoang MD Work Phone: [facility] [place] Comment on above: Medicare annual well ness visit, subsequent (Primary Dx); Essential hypertension; Mixed hyperlipidemia; Elevated hemoglobin A1c; Gastroesophageal reflux disease without esophagitis; Irritable bowel syndrome, unspecified type; Overactive bladder; AK (actinic keratosis); Chronic pain syndrome; Medication management; Advance directive discussed with patient; Living will in place Start: 11-08-2021 Refill Mamie Correa on PA-C Work Phone: [facility] [place] Comment on above: Refill Request Start: 11-03-2021 Telephone encounter Iram Velez APRN.QLIKVIEW DEVELOPER Work Phone: [facility] Comment on above: Results Start: 11-02-2021 Telephone encounter Iram Velez APRN.QLIKVIEW DEVELOPER Work Phone: [facility] Comment on above: Results Start: 10-31-2021 Telephone encounter Maria Luisa Bradley APRN.QLIKVIEW DEVELOPER Work Phone: [facility] Comment on above: Results Start: 10-30-2021 End: 10-30-2021 Patient encounter procedure Flores Peters PA-C Work Phone: [facility] Comment on above: Facial rash (Primary Dx) Start: 04-17-2020 Patient encounter procedure Flores Peters PA-C Work Phone: [facility] Work Phone: Start: 04-17-2020 Patient encounter status Flores Peters PA-C Work Phone: [facility] Work Phone: Start: 05-09-2017 Patient encounter status Flores Singhann RENEE Work Phone: [facility] Work Phone: Procedures Date Procedure Procedure Detail Performing Clinician Start: 07-02-2024 Adult depression scr eening assessment Shakeel Olivoapril PLANT CONTROL AIDE.QLIKVIEW DEVELOPER Work Phone: Start: 12-16-2023 Noninvasive ear/puls e [...] Dr. Dustin Joyner Work Phone: Start: 11-20-2022 [facility] [facility] COVI D-19 BIVALENT VACCINE, AGE 12+ YR [...] DTaP,Tdap,Td Vaccine (2 - Td or Tdap) [facility] Start: 07-02-2027 Diabetes Screening Diabetes Screening [facility] Start: 11-20-2026 Diabetes Screening Diabetes Screening [facility] Start: 05-22-2026 Diabetes Screening Diabetes Screening [facility] Start: 11-20-2025 DIABETES SCREEN DIABETES SCREEN [facility] Start: 11-20-2025 Diabetes Screening Diabetes Screening [facility] Start: 09-23-2025 DIABETES SCREEN DIABETES SCREEN [facility] Start: 09-19-2025 DIABETES SCREEN DIABETES SCREEN [facility] Start: 07-25-2025 DIABETES SCREEN DIABETES SCREEN [facility] Start: 07-02-2025 Anxiety Screening Anxiety Screening [facility] Start: 07-02-2025 Depression Screening Depression Screening [facility] Start: 01-07-2025 End: 01-07-2025 Patient encounter procedure [facility] [place] Comment on above: 6 month follow up Start: 12-19-2024 DIABETES SCREEN DIABETES SCREEN [facility] Start: 10-02-2024 Covid-19 Vaccine () Covid-19 Vaccine () [facility] Start: 07-05-2024 End: 10-04-2024 Bacteria identified in Urine by Culture BACTERIAL CULTURE, URINE Microbiology Routine Abnormal urinalysis Expected: 07/05/2024, Expires: 10/04/2024 [facility] Work Phone: Comment on above: Expected: 07/05/2024, Expires: Start: 07-02-2024 End: 07-02-2024 Patient encounter procedure 07/02/2024 2:00 PM EST Office Visit [facility] [place] [address] [facility] [place] [address] Shakeel Collins APRN.QLIKVIEW DEVELOPER [address] [place], [place] [id number] Medicare wellness [facility] [place] Comment on above: Medicare wellness Start: 06-19-2024 DIABETES SCREEN DIABETES SCREEN [facility] Start: 06-09-2024 Advance Directive Discussion Advance Directive Discussion [facility] Start: 05-31-2024 End: 05-31-2024 Patient encounter procedure 05/31/2024 10:20 AM EST Office Visit [facility] [place] [address] [facility], [place] [id number] Shakeel Collins, PLANT CONTROL AIDE.QLIKVIEW DEVELOPER [address] [place], [place] [phone] Medicare wellness [facility] [place] Comment on above: Medicare wellness Start: 05-07-2024 End: 08-06-2024 CBC W Auto Differential panel - Blood COMPLETE BLOOD COUNT AND DIFFERENTIAL Lab Routine Stage 3a chronic kidney disease (HCC) Expected: 05/07/2024, Expires: 08/06/2024 [facility] Comment on above: Expected: 05/07/2024, Expires: Start: 05-07-2024 End: 08-06-2024 Cobalamin (Vitamin B12) [Mass/volume] in Serum or Plasma VITAMIN B12 Lab Routine Gastroesophageal reflux disease without esophagitis Low serum vitamin B12 Medication management Expected: 05/07/2024, Expires: 08/06/2024 [facility] Comment on above: Expected: 05/07/2024, Expires: Start: 05-07-2024 End: 08-06-2024 Comprehensive metabolic 2000 panel - Serum or Plasma COMPREHENSIVE METABOLIC PANEL Lab Routine Essential hypertension Mixed hyperlipidemia Stage 3a chronic kidney disease (HCC) PAC (premature atrial contraction) Expected: 05/07/2024, Expires: 08/06/2024 [facility] Comment on above: Expected: 05/07/2024, Expires: Start: 05-07-2024 End: 08-06-2024 Hemoglobin A1c in Blood HEMOGLOBIN A1C Lab Routine Elevated hemoglobin A1c Expected: 05/07/2024, Expires: 08/06/2024 [facility] Comment on above: Expected: 05/07/2024, Expires: Start: 05-07-2024 End: 08-06-2024 LIPID PANEL, NONFASTING LIPID PANEL, NONFASTING Lab Routine Essential hypertension Mixed hyperlipidemia Expected: 05/07/2024, Expires: 08/06/2024 [facility] Comment on above: Expected: 05/07/2024, Expires: Start: 05-07-2024 End: 08-06-2024 Magnesium [Mass/volume] in Serum or Plasma MAGNESIUM Lab Routine Gastroesophageal reflux disease without esophagitis Medication management Expected: 05/07/2024, Expires: 08/06/2024 [facility] Comment on above: Expected: 05/07/2024, Expires: Start: 05-07-2024 End: 08-06-2024 Thyrotropin [Units/volume] in Serum or Plasma THYROID STIMULATING HORMONE Lab Routine PAC (premature atrial contraction) Expected: 05/07/2024, Expires: 08/06/2024 [facility] Comment on above: Expected: 05/07/2024, Expires: Start: 05-07-2024 End: 08-06-2024 Urinalysis complete panel - Urine URINALYSIS, WITH MICROSCOPIC Lab Routine Essential hypertension Mixed hyperlipidemia Expected: 05/07/2024, Expires: 08/06/2024 [facility] Comment on above: Expected: 05/07/2024, Expires: Start: 02-08-2024 Covid-19 Vaccine () Covid-19 Vaccine () [facility] Start: 02-08-2024 Covid-19 Vaccine ( season) Covid-19 Vaccine () [facility] Start: 02-08-2024 Influenza vaccination Influenza Vaccine (#1) [place] Laura nguyen Start: 02-02-2024 End: 02-02-2024 Nursing evaluation of patient and report 02/02/2024 8:15 AM EDT Nurse Visit Cardiology [address] [place] [id number] Wstr, Nurse Card Admin [facility] [address] [place] [address] Essential hypertension [I10] Cardiology Comment on above: Essential hypertension [I10] Start: 02-02-2024 End: 02-02-2024 Patient encounter procedure Nuclear Medicine Comment on above: Essential hypertension [I10] Start: 12-31-2023 End: 12-31-2023 Patient encounter procedure 12/31/2023 3:30 PM EDT Office Visit Vasculary Surgery [address] [place] [id number] Dizziness [R42] Vasculary Surgery Comment on above: Dizziness [R42] Start: 12-16-2023 End: 12-16-2023 Patient encounter procedure 12/16/2023 2:40 PM EDT Office Visit Cardiology [address] [id number] Chest pressure [R07.89]; [place] (dyspnea on exertion) [R06.09]; Decreased stamina [R53.83] Cardiology Comment on above: Chest pressure [R07.89]; [place] (dyspnea on exertion) [R06.09]; Decreased stamina [R53.83] Start: 12-16-2023 End: 12-16-2023 ambulatory 12/16/2023 2:00 PM EDT Procedure PULM LAB [facility] [address] [place] [address] Wstr, Pulm Lab [facility] [address] [place] [place] [address] [place]ERY (dyspnea on exertion) [R06.09] PULM LAB [facility] W[facility] Comment on above: [place]ERY (dyspnea on exertion) [R06.09] Start: 11-28-2023 End: 11-28-2023 Patient encounter procedure 11/28/2023 12:20 PM EDT Office Visit [facility] [place] [address] [place], [place] [phone] Dustin Hoang MD [address] [place] [address] 1 week follow up [facility] [place] Comment on above: 1 week follow up Start: 11-21-2023 SHINGRIX VACCINE (2 of 2) SHINGRIX VACCINE (2 of 2) [facility] Comment on above: Postponed from 04/25/2022 (Insurance Cov erage) Start: 11-21-2023 End: 11-21-2023 Patient encounter procedure 11/21/2023 11:00 AM EDT Office Visit [facility] [place] [address] [place] [address] Dustin Hoang MD [address] [place], [place] [address] 6 month follow up [facility] [place] Comment on above: 6 month follow up Start: 09-21-2023 Covid-19 Vaccine () Covid-19 Vaccine () [facility] Start: 06-09-2023 Advance Directive Discussion Advance Directive Discussion [facility] Start: 06-09-2023 Behavioral Health Screening Behavioral Health Screening [facility] Start: 06-09-2023 Depression Assessment Depression Assessment [facility] Start: 05-09-2023 End: 07-09-2023 CBC W Auto Differential panel - Blood CBC + DIFF Lab Routine Low serum vitamin B12 Medication management Expected: 05/09/2023, Expires: 07/09/2023 [facility] Work Phone: Comment on above: Expected: 05/09/2023, Expires: Start: 05-09-2023 End: 07-09-2023 Cobalamin (Vitamin B12) [Mass/volume] in Serum or Plasma VITAMIN B12 BLOOD Lab Routine Gastroesophageal reflux disease without esophagitis Low serum vitamin B12 Medication management Expected: 05/09/2023, Expires: 07/09/2023 [facility] Work Phone: Comment on above: Expected: 05/09/2023, Expires: Start: 05-09-2023 End: 07-09-2023 Comprehensive metabolic 2000 panel - Serum or Plasma COMP METABOLIC PANEL Lab Routine Mixed hyperlipidemia Essential hypertension Expected: 05/09/2023, Expires: 07/09/2023 [facility] Work Phone: Comment on above: Expected: 05/09/2023, Expires: Start: 05-09-2023 End: 07-09-2023 Hemoglobin A1c in Blood HGB A1C Lab Routine Elevated hemoglobin A1c Expected: 05/09/2023, Expires: 07/09/2023 [facility] Work Phone: Comment on above: Expected: 05/09/2023, Expires: 4 Start: 05-09-2023 End: 07-09-2023 LIPID PANEL, NONFASTING LIPID PANEL, NONFASTING Lab Routine Mixed hyperlipidemia Essential hypertension Expected: 05/09/2023, Expires: 07/09/2023 [facility] Work Phone: Comment on above: Expected: 05/09/2023, Expires: 4 Start: 05-09-2023 End: 07-09-2023 Magnesium [Mass/volume] in Serum or Plasma MAGNESIUM BLD Lab Routine Gastroesophageal reflux disease without esophagitis Medication management Expected: 05/09/2023, Expires: 07/09/2023 [facility] Work Phone: Comment on above: Expected: 05/09/2023, Expires: Start: 05-09-2023 End: 07-09-2023 Urinalysis complete panel - Urine URINALYSIS, WITH MICROSCOPIC Lab Routine Mixed hyperlipidemia Essential hypertension Expected: 05/09/2023, Expires: 07/09/2023 [facility] Work Phone: Comment on above: Expected: 05/09/2023, Expires: 4 Start: 03-22-2023 COVID-19 VACCINE (5 - Pfizer series) COVID-19 VACCINE (5 - Pfizer series) [facility] Start: 02-07-2023 Covid-19 Vaccine (2022- season) Covid-19 Vaccine () [facility] Start: 02-07-2023 Influenza vaccination [facility] Start: 01-29-2023 [facility] Start: 12-19-2022 SHINGRIX VACCINE (1 of 2) SHINGRIX VACCINE (1 of 2) [facility] Comment on above: Postponed from 1989 (Insurance Cov erage) Start: 12-19-2022 Urine microalbumin profile DTAP,TDAP,TD (1 - Tdap) [facility] Comment on above: Postponed from 1958 (Insurance Cov erage) Start: 11-18-2022 Elastase, pancreatic (el-1), fecal; quantitative [facility] Start: 11-18-2022 Fat [Presence] in Stool [facility] Start: 11-18-2022 Protein measurement [facility] Start: 11-18-2022 [facility] Start: 09-20-2022 End: 11-20-2022 Comprehensive metabolic 2000 panel - Serum or Plasma COMP METABOLIC PANEL Lab Routine Elevated serum creatinine Expected: 09/20/2022, Expires: 11/20/2022 [facility] Work Phone: Comment on above: Expected: 09/20/2022, Expires: 3 Start: 08-15-2022 End: 10-15-2022 CBC W Auto Differential panel - Blood [facility] Work Phone: Comment on above: Expected: 08/15/2022, Expires: 3 Start: 08-15-2022 End: 10-15-2022 HIGH SENSITIVITY TROPONIN T HIGH SENSITIVITY TROPONIN T Lab Routine Chest pain, unspecified type Expected: 08/15/2022, Expires: 10/15/2022 [facility] Work Phone: Comment on above: Expected: 08/15/2022, Expires: 3 Start: 08-01-2022 End: 10-01-2022 CREATININE BLD CREATININE BLD Lab Routine Hydronephrosis, unspecified hydronephrosis type Expected: 08/01/2022, Expires: 10/01/2022 [facility] Work Phone: Comment on above: Expected: 08/01/2022, Expires: 3 Start: 07-25-2022 End: 09-24-2022 Amylase [Enzymatic activity/volume] in Serum or Plasma [facility] Work Phone: Comment on above: Expected: 07/25/2022, Expires: 3 Start: 07-25-2022 End: 09-24-2022 Calcium [Mass/volume] in Serum or Plasma [facility] Work Phone: Comment on above: Expected: 07/25/2022, Expires: 3 Start: 07-25-2022 End: 09-24-2022 Cobalamin (Vitamin B12) [Mass/volume] in Serum or Plasma [facility] Work Phone: Comment on above: Expected: 07/25/2022, Expires: 3 Start: 07-25-2022 End: 09-24-2022 Hemoglobin A1c in Blood [facility] Work Phone: Comment on above: Expected: 07/25/2022, Expires: 3 Start: 07-25-2022 End: 09-24-2022 Hepatic function 2000 panel - Serum or Plasma [facility] Work Phone: Comment on above: Expected: 07/25/2022, Expires: 3 Start: 07-25-2022 End: 09-24-2022 Lipase [Enzymatic activity/volume] in Serum or Plasma [facility] Work Phone: Comment on above: Expected: 07/25/2022, Expires: 3 Start: 07-25-2022 End: 09-24-2022 LIPID PANEL, NONFASTING [facility] Work Phone: Comment on above: Expected: 07/25/2022, Expires: 3 Start: 07-25-2022 End: 09-24-2022 Parathyrin.intact [Mass/volume] in Serum or Plasma [facility] Work Phone: Comment on above: Expected: 07/25/2022, Expires: 3 Start: 06-09-2022 ADVANCE DIRECTIVE DISCUSSION ADVANCE DIRECTIVE DISCUSSION [facility] Start: 06-09-2022 DEPRESSION ASSESSMENT DEPRESSION ASSESSMENT [facility] Start: 04-25-2022 SHINGRIX VACCINE (2 of 2) SHINGRIX VACCINE (2 of 2) [facility] Start: 02-07-2022 End: 04-09-2022 25-hydroxyvitamin D3 [Mass/volume] in Serum or Plasma VITAMIN D 25 HYDROXY Lab Routine Hypercalcemia Expected: 02/07/2022, Expires: 04/09/2022 [facility] Work Phone: Comment on above: Expected: 02/07/2022, Expires: 2 Start: 02-07-2022 End: 04-09-2022 Calcium [Mass/volume] in Serum or Plasma CALCIUM TOTAL BLD Lab Routine Hypercalcemia Expected: 02/07/2022, Expires: 04/09/2022 [facility] Work Phone: Comment on above: Expected: 02/07/2022, Expires: 2 Start: 02-07-2022 Influenza vaccination INFLUENZA (#1) [facility] Start: 02-07-2022 End: 04-09-2022 Parathyrin.intact [Mass/volume] in Serum or Plasma PTH INTACT BLD Lab Routine Hypercalcemia Expected: 02/07/2022, Expires: 04/09/2022 [facility] Work Phone: Comment on above: Expected: 02/07/2022, Expires: 2 Start: 12-23-2021 End: 02-22-2022 Calcium [Mass/volume] in Serum or Plasma CALCIUM TOTAL BLD Lab Routine Hypercalcemia Expected: 12/23/2021, Expires: 02/22/2022 [facility] Work Phone: Comment on above: Expected: 12/23/2021, Expires: 2 Start: 12-23-2021 End: 02-22-2022 Parathyrin.intact [Mass/volume] in Serum or Plasma PTH INTACT BLD Lab Routine Hypercalcemia Expected: 12/23/2021, Expires: 02/22/2022 [facility] Work Phone: Comment on above: Expected: 12/23/2021, Expires: 2 Start: 12-19-2021 End: 02-18-2022 Hemoglobin A1c in Blood [facility] Work Phone: Comment on above: Expected: 12/19/2021, Expires: 2 Start: 12-19-2021 End: 02-18-2022 Urinalysis complete panel - Urine [facility] Work Phone: Comment on above: Expected: 12/19/2021, Expires: 2 Start: 10-30-2021 End: 12-30-2021 Bacteria identified in Wound by Culture WOUND CULTURE AND GRAM STAIN Microbiology Routine Facial rash Expected: 10/30/2021, Expires: 12/30/2021 [facility] Work Phone: Comment on above: Expected: 10/30/2021, Expires: 2 Start: 10-30-2021 End: 12-30-2021 Herpes simplex virus+Varicella zoster virus DNA [Presence] in Unspecified specimen by SHIRAZ with probe detection HSV 1,2/VZV AMP MOLECULAR DETECT Lab Routine Facial rash Expected: 10/30/2021, Expires: 12/30/2021 [facility] Work Phone: Comment on above: Expected: 10/30/2021, Expires: 2 Start: 07-29-2021 COVID-19 VACCINE (4 - Booster for Pfizer series) COVID-19 VACCINE (4 - Booster for Pfizer series) [facility] Start: 06-09-2021 ADVANCE DIRECTIVE DISCUSSION ADVANCE DIRECTIVE DISCUSSION [facility] Start: 06-09-2021 DEPRESSION ASSESSMENT DEPRESSION ASSESSMENT [facility] Start: 05-23-2021 COVID-19 VACCINE (4 - Booster for Pfizer series) COVID-19 VACCINE (4 - Booster for Pfizer series) [facility] Start: 2014 RSV Vaccine (1 - 1-dose 75+ series) RSV Vaccine (1 - 1-dose 75+ series) [facility] Start: 1999 RSV Vaccine (1 - 1-dose 60+ series) RSV Vaccine (1 - 1-dose 60+ series) [facility] Start: 1989 SHINGRIX VACCINE (1 of 2) SHINGRIX VACCINE (1 of 2) [facility] Start: 1958 Urine microalbumin profile [facility] Start: 1957 Anxiety Screening Anxiety Screening [facility] Start: 1957 Depression Screening Depression Screening [facility] End: 08-31-2023 Ct abdomen w/contrast material CT ABDOMEN W IVCON Radiology Routine Hydronephrosis, unspecified hydronephrosis type Dilation of biliary tract 1 Occurrences starting 08/01/2022 until 08/31/2023 [facility] Work Phone: Comment on above: 1 Occurrences starting 08/01/2022 until 08/31/2023 End: 08-16-2023 ECG COMPLETE ECG COMPLETE ECG Routine Chest pain, unspecified type 1 Occurrences starting 08/15/2022 until 08/16/2023 [facility] Work Phone: Comment on above: 1 Occurrences starting 08/15/2022 until 08/16/2023 ECG COMPLETE ECG COMPLETE ECG 11/21/2023 12:18 PM EDT [facility] End: 11-20-2024 Echocardiography ECHO Cardiology Routine Chest pressure [place] (dyspnea on exertion) Decreased stamina 1 Occurrences starting 11/21/2023 until 11/20/2024 [facility] Work Phone: Comment on above: 1 Occurrences starting 11/21/2023 until 11/20/2024 Fat [Mass/mass] in Stool [facility] Fat.neutral [Presenc e] in Stool [facility] EVENT MONITOR [facility] EVENT MONITOR Cardiology Routine SOB (shortness of breath) Palpitations Ordered: 11/20/2022 [facility] Work Phone: Comment on above: Ordered: 11/20/2022 NM CARDIAC PERF STRESS/PHARM NM CARDIAC PERF STRESS/PHARM Radiology STAT Angina pectoris (HCC) SOB (shortness of breath) Palpitations Ordered: 11/20/2022 [facility] Work Phone: Comment on above: Ordered: 11/20/2022 End: 12-20-2024 NM Heart Perfusion W stress and W radionuclide IV NM CARDIAC PERF STRESS/PHARM Radiology Routine Essential hypertension Chest pressure [place] (dyspnea on exertion) Decreased stamina Encounter for screening for cardiovascular disorders 1 Occurrences starting 11/21/2023 until 12/20/2024 [facility] Comment on above: 1 Occurrences starting 11/21/2023 until 12/20/2024 Ova and parasites identified in Unspecified specimen by Light microscopy [facility] End: 12-27-2024 OXIMETRY WITH AMBULATION OXIMETRY WITH AMBULATION PFT Routine [place] (dyspnea on exertion) 1 Occurrences starting 11/28/2023 until 12/27/2024 [facility] Work Phone: Comment on above: 1 Occurrences starting 11/28/2023 until 12/27/2024 Patient Education ED Weakness (U ncertain Cause) [facility] Work Phone: Patient referral [facility] Work Phone: SPIROMETRY - BASELIN E AND POST DILATOR SPIROMETRY - BASELINE AND POST DILATOR PFT Routine [place] (dyspnea on exertion) Decreased stamina Ex-smoker 11/24/2023 1:00 PM EDT [facility] Work Phone: End: 08-24-2023 Us abdominal real time w/image limited US ABD RT UPPER QUADRANT Radiology Routine Epigastric pain 1 Occurrences starting 07/25/2022 until 08/24/2023 [facility] Work Phone: Comment on above: 1 Occurrences starting 07/25/2022 until 08/24/2023 End: 11-20-2024 US Carotid arteries - bilateral US CAROTID ARTERIES [facility] Vascular Lab Routine Dizziness 1 Occurrences starting 11/21/2023 until 11/20/2024 [facility] Comment on above: 1 Occurrences starting 11/21/2023 until 11/20/2024 End: 12-20-2024 XR Chest PA and Lateral XR CHEST 2V FRONTAL/LAT Radiology Routine Chest pressure [place]TGOMERY (dyspnea on exertion) Decreased stamina Ex-smoker 1 Occurrences starting 11/21/2023 until 12/20/2024 [facility] Comment on above: 1 Occurrences starting 11/21/2023 until 12/20/2024 XR Chest PA and Lateral XR CHEST 2V FRONTAL/LAT Radiology Routine Chest pressure [place] (dyspnea on exertion) Decreased stamina Ex-smoker 11/21/2023 1:21 PM EDT [facility] Immunizations Immunization Date Immunization Notes Care Provider Hood maldonado 07-09-2024 respiratory syncytia l virus (RSV) vaccine, unspecified formulation Shakeel Collins APRN.[employer] Work Phone: [facility] 07-09-2024 tetanus toxoid, redu cyndee diphtheria toxoid, and acellular pertussis vaccine, adsorbed Shakeel Collins APRN.[employer] Work Phone: [facility] 04-03-2024 COVID-19 vaccine, ag e 12+ yr (MODERNA) Dustin Hoang MD Work Phone: [facility] 04-03-2024 Seasonal trivalent influenza vaccine, adjuvanted, preservative free Dustin Hoang MD Work Phone: [facility] 05-22-2023 COVID-19 vaccine, ag e 12+ yr, season (PFIZER-BIONTQuestra) Dustin Hoang MD Work Phone: [facility] 05-22-2023 influenza (HD-IIV4) vaccine, age 65+ yr, high dose, quadrivalent, PF (FLUZONE HIGH-DOSE) Dustin Hoang MD Work Phone: [facility] 05-22-2023 influenza virus vacc ine, unspecified formulation Pulm Wstr Work Phone: [facility] 11-20-2022 COVID-19 vaccine, ag e 12+ yr, bivalent (I Gotchu) Dustin Hoang MD Work Phone: [facility] 02-28-2022 influenza (HD-IIV4) vaccine, age 65+ yr, high dose, quadrivalent, PF (FLUZONE HIGH-DOSE) Dustin Hoang MD Work Phone: [facility] 02-28-2022 influenza, high dose seasonal, preservative-free Dustin Hoang MD Work Phone: [facility] 02-28-2022 zoster vaccine recombinant Dustin Hoang MD Work Phone: [facility] 02-28-2022 influenza virus vacc ine, unspecified formulation Mamie Sotelo PA-C Work Phone: [facility] 03-28-2021 influenza, high-dose , quadrivalent vaccine (FLUZONE HIGH DOSE QUADRIVALENT) Flores Peters PA-C Work Phone: [facility] 03-15-2020 influenza, high dose seasonal, preservative-free Flores Peters PA-C Work Phone: [facility] 03-15-2020 influenza, high-dose , quadrivalent vaccine (FLUZONE HIGH DOSE QUADRIVALENT) Flores Peters PA-C Work Phone: [facility] 03-11-2019 influenza, seasonal, injectable Flores Peters PA-C Work Phone: [facility] 03-11-2019 Seasonal trivalent influenza vaccine, adjuvanted, preservative free Dustin Hoang MD Work Phone: [facility] 03-27-2018 influenza, high dose seasonal, preservative-free Dustin Hoang MD Work Phone: [facility] 05-09-2017 pneumococcal polysaccharide vaccine, 23 valent Flores Peters PA-C Work Phone: [facility] 03-07-2017 influenza, high dose seasonal, preservative-free Flores Athy PA-C Work Phone: [facility] 03-03-2017 influenza, high dose seasonal, preservative-free Dustin Hoang MD Work Phone: [facility] 02-28-2016 influenza, high dose seasonal, preservative-free Flores Athy PA-C Work Phone: [facility] 03-30-2015 influenza, high dose seasonal, preservative-free Dustin Hoang MD Work Phone: [facility] 08-23-2014 pneumococcal conjuga te vaccine, 13 valent Flores Athy PA-C Work Phone: [facility] 04-09-2014 influenza, seasonal, injectable Flores Athy PA-C Work Phone: [facility] 03-15-[address] Dustin Joyner Work Phone: [facility] 03-23-2012 influenza virus vacc ine, unspecified formulation Flores Athy PA-C Work Phone: [facility] 07-18-2010 pneumococcal polysaccharide vaccine, 23 valent Flores Athy PA-C Work Phone: [facility] Work Phone: 03-15-2010 influenza virus vacc ine, unspecified formulation Flores Athy PA-C Work Phone: [facility] 03-09-2009 influenza virus vacc ine, unspecified formulation Flores Athy PA-C Work Phone: [facility] Work Phone: Payers Date Payer Category Payer Self-pay [id number] 2023 Medicare AETNA MEDICARE A ETNA MEDICARE ASSURE HMO D SNP [id number] 2023-Present [phone] [address] [place] [address] Medicare [id number] 2023 Medicare (Managed Care) CYNTHIA KEATING [id number] 2023 Medicaid [id number] 2023 Medicaid [id number] 2023 Private Health Insurance 101 [id number] 2021 Medicare [id number] 2021 Unknown ANTHEM BLUE CROS S AND BLUE SHIELD ANTHEM MEDIBLUE HMO [id number] 2021-Present [phone] [address] [place] [address] O [id number] 2021 Unknown [id number] 2004 Medicare MEDICARE PART A B [id number] Unknown [id number] Unknown [id number] Unknown [id number] Unknown [id number] Unknown [id number] Unknown [id number] Unknown [id number] Social History Date Type Detail Facility Start: 08-23-2014 End: 01-14-2022 Tobacco smoking status NHIS Ex-smoker [facility] Start: 08-14-1960 End: 08-13-2014 History of tobacco use Current smoker [facility] Start: [birth year]14-1960 End: 08-13-2014 History of tobacco use Cigarette Smoker [facility] Start: 08-23-2014 End: 11-20-2022 Cigarettes smoked current (pack per day) - Reported 1 [facility] Start: 08-23-2014 End: 01-14-2022 Tobacco use and exposure Smokeless tobacco non-user [facility] Start: 10-30-2021 End: 01-02-2024 Alcohol intake Current non-drinker of alcohol (finding) [facility] Start: 1940 Sex Assigned At Not on file [facility] Start: 12-09-2021 End: 12-19-2021 Exposure to SARS-CoV-2 (event) Not sure [facility] Start: 06-14-2022 History SDOH Alcohol Frequency 1 [facility] Start: 06-14-2022 History SDOH Social Connections Phone 5 [facility] Start: 06-14-2022 History SDOH Social Connections Membership 2 [facility] Start: 06-14-2022 History SDOH Social Connections Living 3 [facility] Start: 06-14-2022 History SDOH Physical Activity DPW 0 [facility] Start: 06-14-2022 History SDOH Stress 4 [facility] Start: 11-15-2022 End: 01-29-2023 Tobacco smoking status IAIS Unknown if ever smoked [facility] Start: 08-14-2014 None [facility] Start: 08-14-2014 Spouse/ Significant Other [facility] Start: 08-14-2014 Cigarettes [facility] Start: 1940 Sex Assigned At Female [facility] Start: 06-14-2022 End: 11-20-2022 Social connection and isolation panel [facility] Do you belong to any clubs or organizations such as sikhism groups, unions, fraternal or athletic groups, or school groups? No [facility] Are you now , , , , never or living with a partner? [facility] How often to you hav e a drink containing alcohol? Never [facility] Average Number of Drinks Not on file [facility] Work Phone: How hard is it for y ou to pay for the very basics like food, housing, medical care, and heating Somewhat hard [facility] Do you feel stress - tense, restless, nervous, or anxious, or unable to sleep at night because your mind is troubled all the time - these days [OSQ] Rather much [facility] (I/We) worried elliot er (my/our) food would run out before (I/we) got money to buy more. Sometimes true [facility] The food that (I/we) bought just didn't last, and (I/we) didn't have money to get more. Never true [facility] Functional Status Date Assessment Result Facility 09-21-2014 Are you deaf, or do you have serious difficulty hearing No 09/21/2014 10:25 AM Sommer Castellano RPFT No [facility] 09-21-2014 Are you blind, or do you have serious difficulty seeing, even when wearing glasses No 09/21/2014 10:25 AM Sommer Castellano RPFT No [facility] 09-21-2014 Do you have serious difficulty walking or climbing stairs Yes 09/21/2014 10:25 AM Sommer Castellano RPFT Yes [facility] 09-21-2014 Do you have difficul ty dressing or bathing No 09/21/2014 10:25 AM Sommer Castellano RPFT No [facility] 09-21-2014 Because of a physica l, mental, or emotional condition, do you have difficulty doing errands alone such as visiting a physician's office or shopping No 09/21/2014 10:25 AM EDT Sommer Prieto RPNILA No [facility] Mental Status Date Assessment Result Facility 01-29-2023 Cognitive function Level Of Cons ciousness Awake;Alert;Appropriate;Fol lows Commands [facility] Work Phone: 09-21-2014 Because of a physica l, mental, or emotional condition, do you have serious difficulty concentrating, remembering, or making decisions No 09/21/2014 10:25 AM EDT Sommer Prieto RPFT No [facility] Clinical Notes 10-30-2021 to 11-11-2024 Telephone Encounter - Abraham Donovan LPN - 11/11/2024 12:18 PM EDTTelephone Encounter - Abraham Donovan LPN - 11/11/2024 12:18 PM Shakeel Harris APRN.[facility] - 07/02/2024 1:50 PM EST Note Date [...] Donovan LPN November 11, 2024 12:18 PM [facility] 11-11-2024 Miscellaneous Notes Prescription Refill Information The [...] 2024 12:18 PM documented in this encounter [facility] 09-27-2024 Telephone encounter Note The following approved medication requests have been transmitted electronically. Requested Prescriptions Signed Prescriptions Disp Refills metoprolol succinate ER (TOPROL XL) 100 mg 30 tablet 5 Sig: Take 1 tablet by mouth once daily. Authorizing Provider: DUSTIN HOANG MD [facility] 09-27-2024 Miscellaneous Notes The following approved medication [...] 2024 4:28 PM documented in this encounter [facility] 09-27-2024 Telephone encounter Note Prescription Refill Information [...] Merritt LPN September 27, 2024 4:28 PM [facility] 08-13-2024 Telephone encounter Note Prescription Refill Information [...] Thomas LPN August 13, 2024 10:57 AM [facility] 08-13-2024 Miscellaneous Notes Prescription Refill Information The [...] 2024 10:57 AM documented in this encounter [facility] 07-14-2024 Telephone encounter Note The following approved medication requests have been transmitted electronically. Requested Prescriptions Signed Prescriptions Disp Refills omeprazole (PRILOSEC) 40 mg capsule 90 capsule 1 Sig: Take 1 capsule by mouth daily before breakfast. 1/2 hr before meal. Authorizing Provider: DUSTIN HOANG MD [facility] 07-14-2024 Miscellaneous Notes The following approved medication [...] 2024 7:35 AM documented in this encounter [facility] 07-14-2024 Telephone encounter Note Prescription Refill Information [...] Donovan LPN July 14, 2024 7:35 AM [facility] 07-12-2024 Telephone encounter Note Pt notified and verbalized understanding Samantha Meneses MA [facility] 07-12-2024 Miscellaneous Notes Pt notified and verbalized understanding Samantha Meneses MA Please let patient know her urine shows infection. I have sent in antibiotics. documented in this encounter [facility] 07-12-2024 Telephone encounter Note Please let patient know her urine shows infection. I have sent in antibiotics. [facility] 07-05-2024 Telephone encounter Note TC to patient who is agreeable to below. She will come in tomorrow, 07/06, to give urine sample to lab. CHIP Rueda [facility] 07-05-2024 Miscellaneous Notes TC to patient who [...] labs are stable. documented in this encounter [facility] 07-05-2024 Telephone encounter Note I would like patient to come in and provide another urine sample to test for bacterial growth. [facility] 07-05-2024 Telephone encounter Note TC to patient who verbalized understanding of below. Patient states she has been having itching but denies burning/pain with urination, frequency, or odor. CHIP Rueda [facility] 07-05-2024 Telephone encounter Note Please let patient know her hgba1c is up slightly to 5.7. Also find out if she is having any urinary symptoms. Her other labs are stable. [facility] 07-02-2024 Note HNO ID: [id number] Author: SHAKEEL COLLINS APRN.CNP Service: ? Author Type: Nurse Practitioner Type: Progress Notes Filed: 07/02/2024 14:29 Note Text: Nidhi Núñez is a 84 year old [...] Smoke, vape, chews tobacco No Difficulty hearing [place], no hearing aids Difficulty seeing Wears glasses, has appt at eye doctor coming up Current Providers Specialists: I have reviewed specialist-related care of the patient in the medical record. Current care team: Patient Care Team: Dustin Hoang MD as PCP - General (Family Medicine) Shakeel Collins APRN.CNP as Cloth Spreader (Family Medicine) Mamie Sotelo PA-C as Cloth Spreader (Family Medicine) Medical/Family history review Reviewed and [...] mouth two times (more content not included)... [facility] 07-02-2024 History of Presen t illness Narrative [...] Smoke, vape, chews tobacco No Difficulty hearing [place], no hearing aids Difficulty seeing Wears glasses, has appt at eye doctor coming up Current Providers Specialists: I have reviewed specialist-related care of the patient in the medical record. Current care team: Patient Care Team: Dustin Hoang MD as PCP - General (Family Medicine) Shakeel Collins APRN.[employer] DEVELOPER as Cloth Spreader (Family Medicine) Mamie Sotelo PA-C as Cloth Spreader (Family Medicine) Medical/Family history review Reviewed and [...] Shakeel Collins APRN.LISA documented in this encounter [facility] 07-02-2024 Instructions Shakeel Collins APRN.CNP - 07/02/2024 [...] review all the medicines you take, even gain-eqi-xiasbsx medicines. As you get older, the way [...] certain medical conditions. documented in this encounter [facility] 06-30-2024 Telephone encounter Note The patient has [...] Turner LPN June 30, 2024 11:58 AM [facility] 06-30-2024 Miscellaneous Notes The patient has been [...] 2024 11:58 AM documented in this encounter [facility] 05-19-2024 Telephone encounter Note Prescription Refill Information [...] Donovan LPN May 19, 2024 1:41 PM [facility] 05-19-2024 Miscellaneous Notes Prescription Refill Information The [...] 2024 1:41 PM documented in this encounter [facility] 03-23-2024 Note HNO ID: [id number] Author: CHARLIE BRADLEY MA Service: ? Author Type: Instructional Resource Teacher Type: Progress Notes Filed: 03/23/2024 15:15 Note Text: Scan on 03/22/2024 12:21 AM by Provider, External, PA-C: Consultation - Emergency Medicine Would you like patient to follow up? Charlie Bradley MA' [facility] 03-23-2024 History of Presen t illness Narrative Scan on 03/22/2024 12:21 AM by Provider, VÍCTOR Manley: Consultation - Emergency Medicine Would you like patient to follow up? Charlie Bradley MA' documented in this encounter [facility] 03-03-2024 Telephone encounter Note The following approved medication requests have been transmitted electronically. Requested Prescriptions Signed Prescriptions Disp Refills omeprazole (PRILOSEC) 40 mg capsule 90 capsule 1 Sig: Take 1 capsule by mouth daily before breakfast. 1/2 hr before meal. Authorizing Provider: DUSTIN HOANG MD [facility] 03-03-2024 Miscellaneous Notes The following approved medication [...] 2024 1:30 PM documented in this encounter [facility] 03-03-2024 Telephone encounter Note Prescription Refill Information [...] Donovan LPN March 03, 2024 1:30 PM [facility] 03-02-2024 Note HNO ID: [id number] Author: CHARLIE BRADLEY MA Service: ? Author Type: Instructional Resource Teacher Type: Progress Notes Filed: 03/02/2024 16:34 Note Text: Scan on 03/01/2024 9:48 PM by Sindhu Mcwilliams PA-C: X-ray Scan on 03/01/2024 9:51 PM by Sindhu Mcwilliams PA-C: X-ray Scan on 03/01/2024 10:00 PM by Sindhu Mcwilliams PA-C: X-ray Charlie Bradley MA [facility] 03-02-2024 History of Presen t illness Narrative Scan on 03/01/2024 9:48 PM by Sindhu Mcwilliams PA-C: X-ray Scan on 03/01/2024 9:51 PM by Sindhu Mcwilliams PA-C: X-ray Scan on 03/01/2024 10:00 PM by Sindhu Mcwilliams PA-C: X-ray Charlie Bradley MA documented in this encounter [facility] 02-18-2024 Telephone encounter Note Prescription Refill Information [...] Donovan LPN February 18, 2024 12:17 PM [facility] 02-18-2024 Miscellaneous Notes Prescription Refill Information The [...] 2024 12:17 PM documented in this encounter [facility] 02-18-2024 Telephone encounter Note Prescription Refill Information [...] Mabry LPN February 18, 2024 11:05 AM [facility] 02-18-2024 Miscellaneous Notes Prescription Refill Information The [...] 2024 11:05 AM documented in this encounter [facility] 01-09-2024 Telephone encounter Note Pt called and is notified of providers results. Pt voices understanding. Alma Delia Irvin RN [facility] 01-09-2024 Miscellaneous Notes Pt called and is notified of providers results. Pt voices understanding. Alma Delia Irvin RN Let patient know stress test was normal. Scan on 01/08/2024 3:33 PM by Provider, VÍCTOR Manley: Neurology Please review EMG results. Charlie Bradley MA documented in this encounter [facility] 01-09-2024 Telephone encounter Note Let patient know stress test was normal. [facility] 01-09-2024 Telephone encounter Note Scan on 01/08/2024 3:33 PM by Provider, VÍCTOR Manley: Neurology Please review EMG results. Charlie Bradley MA [facility] 12-17-2023 Telephone encounter Note Patient notified of results. Patient verbalizes understanding. Annie Zamora RN [facility] 12-17-2023 Miscellaneous Notes Patient notified of results. Patient verbalizes understanding. Annie Zamora RN Left message for patient to contact office. Charlie Bradley MA Let patient know the US of her heart was ok. documented in this encounter [facility] 12-17-2023 Telephone encounter Note Left message for patient to contact office. Charlie Bradley MA [facility] 12-16-2023 Telephone encounter Note Let patient know the US of her heart was ok. [facility] 12-16-2023 Telephone encounter Note Spoke with pt and information listed below given. Pt verbalizes understanding. Jenny Turner LPN [facility] 12-16-2023 Miscellaneous Notes Spoke with pt and information listed below given. Pt verbalizes understanding. Jenny Turner LPN Left message to return call Let patient know her walking test showed her oxygenation on room air was normal. documented in this encounter [facility] 12-16-2023 Telephone encounter Note Left message to return call [facility] 12-16-2023 Telephone encounter Note Let patient know her walking test showed her oxygenation on room air was normal. [facility] 12-16-2023 Note HNO ID: [id number] Author: BRADLEY CONNOR RRT Service: ? Author [...] Pt does not have a fast pace. [facility] 12-16-2023 Procedure note Associated Ord er(s): OXIMETRY [...] Pt does not have a fast pace. [facility] 12-16-2023 Procedure note Associated Ord er(s): OXIMETRY [...] a fast pace. documented in this encounter [facility] 12-16-2023 Note HNO ID: [id number] Author: BRADLEY CONNOR RRT Service: ? Author Type: Registered Resp Therapist Type: Progress Notes Filed: 12/16/2023 14:32 Note Text: PULM FUNCTION: Provider: Dustin Hoang MD Oximetry - Ambulation: 1 [facility] 12-16-2023 History of Presen t illness Narrative PULM FUNCTION: Provider: Dustin Hoang MD Oximetry - Ambulation: 1 documented in this encounter [facility] 12-03-2023 Telephone encounter Note Faxed order/Demo for [facility] Nuclear stress test. Referral placed. Charlie Bradley MA [facility] 12-03-2023 Miscellaneous Notes Faxed order/Demo for [facility] Nuclear stress test. Referral placed. Charlie Bradley MA documented in this encounter [facility] 11-28-2023 History of Presen t illness Narrative [...] were ok. Patient was to schedule a [place] Cardiac stress test and ECHO; CT of [...] if stress test can be done at [facility] since the one through us is not till January. 4. Dizziness - ICD9: 780.4, ICD10: R42 - awaiting carotid US. F/u 6 months extensive exam Forms for [facility] completed. I spent a total of 40 minutes on the date of the service which included preparing to see the patient, [id number] patient care, completing clinical documentation, performing a medically appropriate examination, counseling and educating the patient/family/caregiver and ordering medications, tests, or procedures. Dustin Hoang MD documented in this encounter [facility] 11-28-2023 Note HNO ID: [id number] Author: DUSTIN HOANG MD Service: ? Author [...] Drug use: No (more content not included)... [facility] 11-25-2023 Telephone encounter Note Pt notified. Brunilda Kinsey MA [facility] 11-25-2023 Miscellaneous Notes Pt notified. Brunilda Kinsey MA Let patient know her breathing test was ok and the chest x-ray was ok. documented in this encounter [facility] 11-25-2023 Telephone encounter Note Let patient know her breathing test was ok and the chest x-ray was ok. [facility] 11-25-2023 Telephone encounter Note Patient returns call and reports no burning/pain, urgency, or fever. Reports back pain per her usual and frequency but not any different than her usual. Takes [facility] for this. Dayna Osorio RN [facility] 11-25-2023 Miscellaneous Notes Patient returns call and [...] having urinary symptoms. documented in this encounter [facility] 11-25-2023 Telephone encounter Note Call placed to patient and message left to call back to triage nurse. Please find out if patient is having urinary symptoms. Dayna Osorio RN [facility] 11-25-2023 Telephone encounter Note Please find out if patient is having urinary symptoms. [facility] Work Phone: 11-24-2023 Telephone encounter Note Pt's granddaughter Meghan calls along with pt for results. Notified of results. Maritza Pennington LPN [facility] 11-24-2023 Miscellaneous Notes Pt's granddaughter Meghan calls along with pt for results. Notified of results. Maritza Pennington LPN Left message for pt to contact office. Abraham Donovan LPN Let patient know that her ct brain was normal. documented in this encounter [facility] 11-24-2023 Telephone encounter Note Left message for pt to contact office. Abraham Donovan LPN [facility] 11-24-2023 Note HNO ID: [id number] Author: SOMMER PRIETO RPFT Service: ? Author Type: Respiratory Therapist Type: Progress Notes Filed: 11/24/2023 13:19 Note Text: PULM FUNCTION: Provider: Dustin Hoang MD Assisting Tech: Sommer Prieto RPFT Spirometry w/BD: 1 [facility] 11-24-2023 History of Presen t illness Narrative PULM FUNCTION: Provider: Dustin Hoang MD Assisting Tech: Sommer Prieto RPFT Spirometry w/BD: 1 documented in this encounter [facility] 11-24-2023 Telephone encounter Note Let patient know that her ct brain was normal. [facility] 11-24-2023 History of Presen t illness Narrative [...] PATIENT PRESENTS WITH AN IMPLANTABLE OR ATTACHED HEATING AND VENTILATING TENDER: No RADIOLOGY DEPARTMENT: CT; Exam(s) Completed: Brain PERIPHERAL IV DATA: Not applicable SIGNED BY: RT Alyssa(Marilyn) November 24, 2023 4:14 PM documented in this encounter [facility] 11-24-2023 Note HNO ID: [id number] Author: JOYCE CARR RT(R) Service: ? Author Type: Material Damage Adjuster Type: Progress Notes Filed: 11/24/2023 16:15 Note [...] PATIENT PRESENTS WITH AN IMPLANTABLE OR ATTACHED HEATING AND VENTILATING TENDER: No RADIOLOGY DEPARTMENT: CT; Exam(s) Completed: Brain PERIPHERAL IV DATA: Not applicable SIGNED BY: RT Alyssa(Marilyn) November 24, 2023 4:14 PM [facility] 11-21-2023 History of Presen t illness Narrative [...] PATIENT PRESENTS WITH AN IMPLANTABLE OR ATTACHED HEATING AND VENTILATING TENDER: No RADIOLOGY DEPARTMENT: General X-ray: Exam(s) Completed: Chest X-Ray PERIPHERAL IV DATA: Not applicable SIGNED BY: RT Patrice(R) November 21, 2023 1:14 PM documented in this encounter [facility] 11-21-2023 Note HNO ID: [id number] Author: AKIL MORALES RT(R) Service: Radiology Author [...] PATIENT PRESENTS WITH AN IMPLANTABLE OR ATTACHED HEATING AND VENTILATING TENDER: No RADIOLOGY DEPARTMENT: General X-ray: Exam(s) Completed: Chest X-Ray PERIPHERAL IV DATA: Not applicable SIGNED BY: RT Patrice(R) November 21, 2023 1:14 PM [facility] 11-21-2023 Instructions Dustin Hoang MD - 11/21/2023 11:26 AM EDT Please bring in copies of your power of attorney recruiter for health care and living will. documented in this encounter [facility] 11-21-2023 Note HNO ID: [id number] Author: DUSTIN HOANG MD Service: ? Author [...] 60 Resp 18 (more content not included)... [facility] 11-21-2023 History of Presen t illness Narrative [...] Abs Lymph 1.00 - 4.00 k/uL 1.45 Schuyler% % 10.5 Abs Schuyler <0.87 k/uL 0.62 Eosin% % 3.6 Abs Eosin <0.46 k/uL 0.21 Baso% % 0.5 Abs Baso <0.11 k/uL 0.03 Immature Gran % % 0.2 IMMATURE GRANS (ABS) <0.10 k/uL <0.03 NRBC /100 WBC 0.0 Absolute nRBC <0.01 k/uL <0.01 DTYPE Auto Color Yellow Yellow Clarity Clear Clear Glucose, Urine Negative Negative Bilirubin, Urine Negative Negative Ketones, Urine Negative Negative Specific [place], Ur 1.005 - 1.030 1.012 Hemoglobin/Blood,Ur Negative [...] which included preparing to see the patient, [id number] patient care, completing clinical documentation, performing a medically appropriate examination, counseling and educating the patient/family/caregiver and ordering medications, tests, or procedures. Patient was asked at end of visit if they had any questions or input regarding the plan of care we had discussed. Dustin Hoang MD documented in this encounter [facility] 11-18-2023 Telephone encounter Note The following approved medication requests have been transmitted electronically. Requested Prescriptions Signed Prescriptions Disp Refills lisinopril (ZESTRIL) 40 mg tablet 180 tablet 1 Sig: Take 1 tablet by mouth two times a day. Authorizing Provider: DUSTIN HOANG MD [facility] 11-18-2023 Miscellaneous Notes The following approved medication [...] Britany Bojorquez MA. documented in this encounter [facility] 11-18-2023 Telephone encounter Note Patient has been [...] Please advise. Thank you. Britany Bojorquez MA. [facility] 09-30-2023 Telephone encounter Note Patient has been [...] Please advise. Thank you. Chelsey Faust LPN. [facility] 09-30-2023 Miscellaneous Notes Patient has been identified [...] Chelsey Faust LPN. documented in this encounter [facility] 08-13-2023 Miscellaneous Notes Patient has been identified [...] Abraham Donovan LPN. documented in this encounter [facility] 07-30-2023 Miscellaneous Notes Rx was refilled 07/29/23 Qty: 90 with 1 refill. Pt notified via . Abraham Donovan LPN documented in this encounter [facility] 07-29-2023 Miscellaneous Notes Patient has been identified [...] Kandy Hopkins Pss documented in this encounter [facility] 04-21-2023 History of Presen t illness Narrative [...] 2023 1:31 PM documented in this encounter [facility] 04-21-2023 History of Presen t illness Narrative [...] Monica Tan PA-C documented in this encounter [facility] 04-07-2023 Miscellaneous Notes Pts daughter called in [...] insurance. It was $11-12 at [facility] for 30 pills. documented in this encounter [facility] 04-03-2023 Miscellaneous Notes The following approved medication [...] patient. Elidia Hagen documented in this encounter [facility] 04-03-2023 Miscellaneous Notes Patient and daughter, Gabi, reports patient is out of metoprolol and [facility] tells them they need new Rx. They also report patient has been out of doxazosin for 4 days, and [facility] tells them they need a new Rx. This nurse spoke with pharmacist at [facility], who reports they never received the doxazosin 2 mg take one daily #90 1 refill Rx on 01-16-23. Given verbal to pharmacist. Pharmacist reports patient is out of refills on metoprolol and will need new Rx. Asking pcp to send new Rx for metoprolol. Looks like it was pended in another encounter. documented in this encounter [facility] 03-20-2023 Miscellaneous Notes FYI: Grand daughter calls [...] Dayna Osorio RN documented in this encounter [facility] 03-20-2023 Miscellaneous Notes Refilled Doxazosin 01/16/23 with 90 tabs and 1 refill to [facility]. Advised via message to contact pharmacy. Samantha Luo MA documented in this encounter [facility] 03-20-2023 Miscellaneous Notes JOSEPH: 11/20/22 with PCP NOV: 05/22/23-medicare wellness with [facility] Last refill: Omeprazole: 07/25/22 With 30 and 5 refills Tolterodine: 08/29/22 With 30 and 5 refills Refill requesting 90 day supply. Pended as requested. Samantha Luo MA documented in this encounter [facility] 01-31-2023 Miscellaneous Notes Call to granddaughterMeghan notified her of message below. Verbalized understanding. Wanted PCP to know pt was taken by squad to [facility] ED on 01/29 was not admitted. Scanned documented routed to PCP in abstract. Shantelle Shankar Ma Let patient know stress test was negative for blood flow issues. Scan on 01/29/2023 2:41 PM by Provider, External, PACarlosC: Stress Test Please review results. Charlie Bradley MA documented in this encounter [facility] 01-29-2023 Miscellaneous Notes Noted and agree. Granddaughter (Meghan) calls to report that patient went to [facility] this morning for a stress test and [...] Dayna Osorio, RN documented in this encounter [facility] 01-16-2023 Miscellaneous Notes Patient has been identified [...] Yeni Thomas LPN documented in this encounter [facility] 01-10-2023 Miscellaneous Notes Spoke to Meghan wh verbalized understanding Britany Bojorquez Ma Let daughter know yes Nidhi would need to travel to see the merchandising specialist. The closest facility would be [facility]. Patient's granddaughter notified and voiced understanding. We have faxed twice to [facility] to get her stress test scheduled. [...] it somewhere else? documented in this encounter [facility] 11-29-2022 History of Presen t illness Narrative Scan on 11/25/2022 8:21 AM by External Provider, PA-C: Miscellaneous Lab Scan on 11/26/2022 6:37 PM by External Provider, PA-C: Miscellaneous Lab Scan on 11/28/2022 12:34 AM by External Provider, PA-C: Miscellaneous Lab Charlie Bradley MA documented in this encounter [facility] 11-22-2022 Miscellaneous Notes Spoke with Meghan matamoros [...] a day helps. documented in this encounter [facility] 11-21-2022 History of Presen t illness Narrative Scan on 11/18/2022 5:37 PM by External Provider, VÍCTOR: Miscellaneous Lab documented in this encounter [facility] 11-20-2022 Instructions Dustin Hoang MD - 11/20/2022 10:22 AM EDT Please bring in copies of your power of attorney recruiter for health care and living will. Please get your second shingles vaccine at [facility] and let Dr. Hoang know. Please get labs and urine test done on or after 05/09/2023 prior to your next visit. documented in this encounter [facility] 11-20-2022 History of Presen t illness Narrative [...] Abs Lymph 1.00 - 4.00 k/uL 1.85 Schuyler% % 8.6 Abs Schuyler <0.87 k/uL 0.59 Eosin% % 3.2 Abs [...] MG/5 ML INTRAVENOUS SYRINGE - INSERT IV ([place]) - IV DISCONTINUE - NM CARDIAC PERF STRESS/PHARM - REGADENOSON 0.4 MG/5 ML INTRAVENOUS SYRINGE - INSERT IV ([place]) - IV DISCONTINUE 7. SOB (shortness of breath) - ICD9: 786.05, ICD10: R06.02 Check - NM CARDIAC PERF STRESS/PHARM - REGADENOSON 0.4 MG/5 ML INTRAVENOUS SYRINGE - INSERT IV ([place]) - IV DISCONTINUE - CHRISTIAN OF [employer] EVENT MONITOR - CBC + DIFF - NM CARDIAC PERF STRESS/PHARM - REGADENOSON 0.4 MG/5 ML INTRAVENOUS SYRINGE - INSERT IV ([place]) - IV DISCONTINUE 8. Palpitations - ICD9: 785.1, ICD10: R00.2 Check - CHRISTIAN [employer] EVENT MONITOR - BASIC METABOLIC PNL - TSH BLD - T4 FREE/FREE THYROX - NM CARDIAC PERF STRESS/PHARM - REGADENOSON 0.4 MG/5 ML INTRAVENOUS SYRINGE - INSERT IV ([place]) - IV DISCONTINUE 9. Encounter for immunization - ICD9: V03.89, ICD10: Z23 - [employer] COVID-19 BIVALENT VACCINE, AGE 12+ YR 10. Advance directive discussed with patient - ICD9: V65.49, ICD10: Z71.89 - patient to bring in copies. 12. Stage 3a chronic kidney disease (HCC) - ICD9: 585.3, ICD10: N18.31 - cont current Tx and await labs. F/u 6 months extensive check CMP, Lipid, UA, A1c, CBC, B12, Mg prior Dustin Hoang MD documented in this encounter [facility] 11-19-2022 History of Presen t illness Narrative Scan on 11/15/2022 3:59 PM by External Provider, PA-C: Chemistry Scan on 11/18/2022 5:37 PM by External Provider, PACarlosC: Miscellaneous Lab Charlie Bradley MA documented in this encounter [facility] 09-20-2022 Miscellaneous Notes Patient was notified Britany Bojorquez Ma Please let patient know that her blood work shows some mild dehydration I would like her to increase her water intake and repeat the labs on Friday. documented in this encounter [facility] 08-29-2022 Miscellaneous Notes Patient has been identified [...] Yeni Thomas LPN documented in this encounter [facility] 08-21-2022 History of Presen t illness Narrative Scan on 08/16/2022 9:27 AM by External Provider: TONNY Bradley MA documented in this encounter [facility] 08-19-2022 Miscellaneous Notes Faxed. Charlie Bradley MA [...] her to Gastro. documented in this encounter [facility] 08-16-2022 Miscellaneous Notes Patient and granddaughter notified and verbalized understanding Samantha Meneses Cma Please let patient know that her blood count is normal. documented in this encounter [facility] 08-15-2022 Miscellaneous Notes Addended by: SHAKEEL COLLINS on: 08/15/2022 11:30 AM Modules accepted: Orders documented in this encounter [facility] 08-15-2022 Instructions Shakeel Collins APRN.CNP - 08/15/2022 11:02 AM EST Complete lab work Start increased dose of doxazosin Follow up in 4 weeks for Bp check. documented in this encounter [facility] 08-15-2022 History of Presen t illness Narrative [...] Shakeel Collins APRN.LISA documented in this encounter [facility] 08-15-2022 History of Presen t illness Narrative [...] TIME: 2:53 PM documented in this encounter [facility] 08-01-2022 Miscellaneous Notes Patient returned call and [...] findings. Orders placed. documented in this encounter [facility] 07-31-2022 History of Presen t illness Narrative Scan on 07/30/2022 3:30 PM by External Provider: Consultation - Orthopedics Charlie Bradley MA documented in this encounter [facility] 07-30-2022 History of Presen t illness Narrative [...] 2022 10:17 AM documented in this encounter [facility] 07-26-2022 Miscellaneous Notes Pts granddaughter called and [...] progressing onto diabetes. documented in this encounter [facility] 07-25-2022 History of Presen t illness Narrative [...] which included preparing to see the patient, [id number] patient care, completing clinical documentation, performing a medically appropriate examination, counseling and educating the patient/family/caregiver and ordering medications, tests, or procedures. Dustin Hoang MD documented in this encounter [facility] 04-25-2022 Miscellaneous Notes Last office visit: 12/19/21 F/u scheduled: 06/21/22 Brunilda Kinsey Ma documented in this encounter [facility] 03-29-2022 Miscellaneous Notes The following approved medication [...] Last refill: 12/2021 documented in this encounter [facility] 03-17-2022 Miscellaneous Notes The following approved medication requests have been transmitted electronically. Requested Prescriptions Signed Prescriptions Disp Refills doxazosin (CARDURA) 1 mg tablet 30 tablet 5 Sig: Take 1 tablet by mouth once daily. Dustin Hoang MD documented in this encounter [facility] 02-26-2022 Miscellaneous Notes TC to Meghan, she [...] up to date documented in this encounter [facility] 02-26-2022 History of Presen t illness Narrative [...] up to date documented in this encounter [facility] 02-13-2022 Miscellaneous Notes The following approved medication [...] the chest discomfort. documented in this encounter [facility] 02-13-2022 History of Presen t illness Narrative [...] the chest discomfort. documented in this encounter [facility] 01-15-2022 Miscellaneous Notes Pt's EC Meghan notified [...] Shelley Taveras LPN documented in this encounter [facility] 01-09-2022 History of Presen t illness Narrative [...] Shelley Taveras LPN documented in this encounter [facility] 01-07-2022 Miscellaneous Notes Patient notified of results, verbalizes understanding of instructions. Samantha Luo MA Let patient know her repeat calcium level was ok but her parathyroid hormone level is slightly above normal at 70 (normal is 15-65). Would like to repeat both labs and Vit D level in a month. Orders placed. documented in this encounter [facility] 12-24-2021 Miscellaneous Notes Phoned patient and given [...] week. Order placed. documented in this encounter [facility] 12-19-2021 Nurse Note BP documented in this encounter [facility] 12-19-2021 Instructions Dustin Hoang MD - 12/19/2021 10:24 AM EDT Consider getting the shingrix vaccine for the prevention of shingles from a local pharmacy Please bring in copies of living will and durable power of attorney recruiter documented in this encounter [facility] 12-19-2021 History of Presen t illness Narrative [...] Abs Lymph 1.00 - 4.00 k/uL 1.83 Schuyler% % 9.5 Abs Schu[place] <0.87 k/uL 0.63 Eosin% % 9.4 Abs [...] diet of 1000 mg/day for under 50, [id number] mg/day for 50+ - Follow up for [...] which included preparing to see the patient, [id number] patient care, completing clinical documentation, performing a medically appropriate examination, counseling and educating the patient/family/caregiver and ordering medications, tests, or procedures. Dustin Hoang MD documented in this encounter [facility] 11-09-2021 Miscellaneous Notes Patient phones requesting refills [...] Marjorie Mabry LPN documented in this encounter [facility] 11-08-2021 Miscellaneous Notes Patient has been identified by name and date of : Yes Pending Prescriptions Disp Refills LISINOPRIL 40 MG TABLET 135 tablet 1 Sig: Take 1.5 tablets by mouth once daily. JOHANA: No Lisinopril 04/20/2021 qty 135 w/1 r/f Last OV 06/19/2021 Labs 06/19/2021 Next OV 12/19/2021 RX INSTRUCTIONS: Eusebia Turner LPN documented in this encounter [facility] 11-03-2021 Miscellaneous Notes Phone call placed detailed message left on (Meghan's identified voicemail, listed on chart) (see prior provider encounter) Eusebia Turner LPN documented in this encounter [facility] 11-02-2021 Miscellaneous Notes I spoke to Meghan, [...] Turner LPN ----- Message from Iram Leon APRN.QLIKVIEW DEVELOPER sent at 11/02/2021 4:23 PM EDT ----- Please advise patient the wound culture did not grow any bacteria. Herpes and shingles test was negative. Iram Leon APRN.QLIKVIEW DEVELOPER documented in this encounter [facility] 10-31-2021 Miscellaneous Notes Spoke with pt and information listed below given. Pt verbalizes understanding. Jenny Turner LPN Left message with patient to return call. Negative for herpes and no growth so far on the wound culture. Will notify when the final culture come back. Thank you. If symptoms worsen follow up with PCP. documented in this encounter [facility] 10-30-2021 History of Presen t illness Narrative Images from the original note were not included. This note was created using [employer]. Subjective Nidhi Núñez is a 81 year old female. HPI Patient presents with a rash on her face over the past 3 days. Is on her right cheek and neck. She denies any eye pain or redness. No drainage. Starting to weep and crusts. 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 trying to dry it [...] Flores Peters PA-C documented in this encounter [facility] Evaluation note Diagnosis Facial rash- Primary Rash and other nonspecific skin eruption [facility] Diagnosis Mixed hyperlipidemia Essential hypertension Unspecified essential hypertension [facility] Diagnosis Essential hypertension Unspecified essential hypertension [facility] Medicare annual wellness visit, [...] will in place [facility] Diagnosis Hypercalcemia- Primary Low serum vitamin B12 [facility] Diagnosis Hypercalcemia- Primary [facility] Diagnosis Essential hypertension- Primary Unspecified essential hypertension [facility] Diagnosis Essential hypertension Unspecified essential hypertension [facility] Diagnosis Essential hypertension- Primary Unspecified essential hypertension [facility] Diagnosis Essential hypertension- Primary Unspecified essential hypertension [facility] Diagnosis Overactive bladder Hypertonicity of bladder [facility] Diagnosis Mixed hyperlipidemia Essential hypertension Unspecified essential hypertension [facility] Diagnosis Epigastric pain- Primary Abdominal pain, [...] and musculoskeletal systems documented in this encounter [facility] note* Diagnosis Hydronephrosis, unspecified hydronephrosis type- Primary Dilation of biliary tract Other specified disorders of biliary tract [facility]* Diagnosis Chest pain, unspecified type- Primary Essential hypertension Unspecified essential hypertension documented in this encounter [facility] note* Diagnosis Epigastric pain- Primary Abdominal pain, epigastric documented in this encounter [facility] note* Diagnosis Overactive bladder Hypertonicity of bladder [facility]* Diagnosis Elevated serum creatinine- Primary Other nonspecific findings on examination of blood documented in this encounter [facility] note* Diagnosis Onset Date Resolution Status Bloating chronic [facility] Work Phone: Evaluation note* Diagnosis Essential hypertension- [...] kidney disease (HCC) [facility] Diagnosis Essential hypertension Unspecified essential hypertension [facility]* Diagnosis Essential hypertension Unspecified essential hypertension [facility]* Diagnosis Overactive bladder Hypertonicity of bladder documented in this encounter [facility] note* Diagnosis Essential hypertension Unspecified essential hypertension [facility]* Diagnosis Hydronephrosis, unspecified hydronephrosis type Dilation of biliary tract Other specified disorders of biliary tract documented in this encounter [facility] note* Diagnosis Epigastric pain Abdominal pain, epigastric [facility]* Diagnosis Rash- Primary Rash and other nonspecific skin eruption Acute cough [facility] Diagnosis Mixed hyperlipidemia [facility]* Diagnosis Mixed hyperlipidemia [facility] in [facility]* Diagnosis Essential hypertension Unspecified essential hypertension [facility] Diagnosis Overactive bladder Hypertonicity of bladder [facility] Diagnosis Essential hypertension Unspecified essential hypertension [facility] Diagnosis MONTGOMERY (dyspnea on exertion) Other dyspnea and respiratory abnormality Decreased stamina Other malaise and fatigue Ex-smoker Personal history of tobacco use, presenting hazards to health documented [facility] this [facility]* Diagnosis Essential hypertension- Primary Unspecified essential [...] unspecified headache type [facility] this [facility]* Diagnosis Ataxia Lack of coordination Headache, unspecified headache type documented in this encounter [facility] Diagnosis Essential hypertension- Primary Unspecified essential hypertension [place]ERY (dyspnea on exertion) Other dyspnea and respiratory abnormality Chest pain, unspecified type Dizziness Dizziness and giddiness documented [facility] this [facility]* Diagnosis MONTGOMERY (dyspnea on exertion)- Primary Other dyspnea and respiratory abnormality [facility]* Diagnosis Chest pressure Other chest pain MONTGOMERY (dyspnea on exertion) Other dyspnea and respiratory abnormality Decreased stamina Other malaise and fatigue Ex-smoker Personal history of tobacco use, presenting hazards to health [facility]* Diagnosis Overactive bladder Hypertonicity of bladder documented [facility] this [facility]* Diagnosis Essential hypertension Unspecified essential hypertension documented in this encounter [facility] note* Diagnosis Acute cough documented in this encounter [facility] note* Diagnosis Essential hypertension Unspecified essential hypertension documented in this encounter [facility] note* Diagnosis Essential hypertension Unspecified essential hypertension Mixed hyperlipidemia documented in this encounter [facility] note* Diagnosis Advance directive discussed with patient- Primary Other specified counseling Screening for depression Encounter for screening examination for other mental health and behavioral disorders Medicare annual wellness visit, subsequent Routine general medical examination at a [facility] care facility Seasonal allergies Allergic rhinitis, cause unspecified Essential hypertension Unspecified essential hypertension Mixed hyperlipidemia Overactive bladder Hypertonicity of bladder Elevated hemoglobin A1c Other abnormal blood chemistry Stage 3a chronic kidney disease (HCC) Low serum vitamin B12 Gastroesophageal reflux disease without esophagitis Esophageal reflux PAC (premature atrial contraction) Supraventricular premature beats documented in this encounter [facility] note* Diagnosis Abnormal urinalysis- Primary Other nonspecific finding on examination of urine documented in this encounter [facility] note* Diagnosis Abnormal urinalysis- Primary Other nonspecific finding on examination of urine Urinary tract infection without hematuria, site unspecified documented in this encounter [facility] note* Diagnosis Overactive bladder Hypertonicity of bladder Essential hypertension Unspecified essential hypertension documented in this encounter [facility] note* Diagnosis Essential hypertension Unspecified essential hypertension documented in this encounter [facility] for referral (narrative)* Diagnostic Procedure Only (Routine) - Authorized Specialty Diagnoses / Procedures Referred By Royal celis Referred To Contact US IMAGING Diagnoses Epigastric pain Procedures US ABD RT UPPER QUADRANT US ABDOMINAL REAL TIME W/IMAGE LIMITED Dustin Hoang MD [address] [place] [address] Us Imaging Referral ID Status Reason Start Date Expiration Date Visits Requested Visits Authorized [id number] Authorized Auto-Generat ed Referral 07/25/2022 08/24/2023 1 1 * Consult, Test, Treat (Routine) - Pending Review Specialty Diagnoses / Procedures Referred By Royal celis Referred To Contact Orthopedics Diagnoses Lumbar pain Thoracic spine pain Numbness and tingling of right leg Balance problems Procedures CONSULT TO ORTHOPAEDICS OFFICE/OUTPATIENT [facility] 60-74 MINUTES Dustin Hoang MD [address] [place] [address] Referral ID Status Reason Start Date Expiration Date Visits Requested Visits Authorized [id number] Pending Review PCP Requested Referral 07/25/2022 07/25/2023 1 1 [facility] for referral (narrative)* Outpatient Procedure (Routine) - Pending Review Specialty Diagnoses / Procedures [facility] Diagnoses Chest pain, unspecified type Procedures ECG COMPLETE ECG ROUTINE ECG W/LEAST 12 LDS W/I&R Shakeel Collins APRN.CNP [address] [place] [address] [facility] [place] [address] Referral ID Status Reason Start Date Expiration Date Visits Requested Visits Authorized [id number] Pending Review Auto-Generat ed Referral 08/15/2022 08/15/2023 1 1 [facility] for referral (narrative)* Diagnostic Procedure Only (Urgent) - Authorized Specialty Diagnoses / Procedures [facility] Ref[facility] To Contact MOLECULAR & FUNCTIONAL IMAGING Diagnoses Angina pectoris (HCC) SOB (shortness of breath) Palpitations Procedures NM CARDIAC PERF STRESS/PHARM MYOCARDIAL SPECT MULTIPLE STUDIES Dustin Hoang MD [address] [place] [address] [facility] [address] [place] [address] Referral ID Status Reason Start Date Expiration Date Visits Requested Visits Authorized [id number] Authorized Auto-Generat ed Referral 11/20/2022 12/20/2023 1 1 [facility] for referral (narrative)* Diagnostic Procedure Only (Routine) - Closed Specialty Diagnoses / Procedures [facility] Referred To Contact US IMAGING Diagnoses Epigastric pain Procedures US ABD RT UPPER QUADRANT US ABDOMINAL REAL TIME W/IMAGE LIMITED Dustin Hoang MD [address] [place] [address] [place] [address] Referral ID Status Reason Start Date Expiration Date V isits Requested Visits Authorized [id number] Closed Auto-Generate d Referral 07/25/2022 08/24/2023 1 1 [facility] for referral (narrative)* Outpatient Procedure (Routine) - Authorized Specialty Diagnoses / Procedures Referred By Royal t Referred To Contact [facility] Diagnoses Dizziness Procedures US CAROTID ARTERIES [facility] DUPLEX SCAN EXTRACRANIAL ART COMPL BI STUDY Dustin Hoang MD [address] [place] [address] [facility] [address] [place] [id number] Referral ID Status Reason Start Date Expiration Date Visits Requested Visits Authorized [id number] Authorized Auto-Generat ed Referral 11/21/2023 11/20/2024 1 1 * MRI/CT (Routine) - Closed Specialty Diagnoses / Procedures Referred By Royal Referred To Contact CT IMAGING Diagnoses Ataxia Headache, unspecified headache type Procedures CT BRAIN WO IVCON CT HEAD/BRAIN W/O CONTRAST MATERIAL Dustin Honag MD [address] [place] [address] Ct Imaging [id number] Referral ID Status Reason Start Date Expiration Date V isits Requested Visits Authorized [id number] Closed Auto-Generat ed Referral Patient Cleared - [...] SPECT MULTIPLE STUDIES Dustin Hoang MD [address] [place] [address] Molecular [facility] Functional [facility] [address] [place] [id number] Referral ID Status Reason Start Date Expiration Date Visits Requested Visits Authorized [id number] Authorized Auto-Generat ed Referral 11/21/2023 12/20/2024 1 1 * Outpatient Procedure (Routine) - Pending Review Specialty Diagnoses / Procedures [facility] Referred To Contact [facility] [place] Diagnoses Chest pressure [place]OMERY (dyspnea on exertion) Procedures ECG COMPLETE ECG ROUTINE ECG W/LEAST 12 LDS W/I&R Dustin Hoang MD [address] [place] [address] [facility] [address] [address] Referral ID Status Reason Start Date Expiration Date Visits Requested Visits Authorized [id number] Pending Review Auto-Generat ed Referral 11/21/2023 11/20/2024 1 1 * Outpatient Procedure (Routine) - Closed Specialty Diagnoses / Procedures [facility]erred To Contact [facility] Diagnoses MONTGOMERY (dyspnea on exertion) Decreased stamina Ex-smoker Procedures SPIROMETRY - BASELINE AND POST DILATOR BRNCDILAT RSPSE SPMTRY PRE&POST-BRNCDILAT ADMN Dustin Hoang MD [address] [place] [address] Respiratory [facility] [address] [place] [address] Referral ID Status Reason Start Date Expiration Date V isits Requested Visits Authorized [id number] Closed Auto-Generate d Referral 11/21/2023 12/20/2024 1 1 * Outpatient Procedure (Routine) - Pending Review Specialty Diagnoses / Procedures Referred By Contac t Referred To Contact [facility] Diagnoses Chest pressure [place] (dyspnea on exertion) Decreased stamina Procedures ECHO ECHO TTHRC R-T 2D W/WOM-MODE COMPL SPEC&COLR D Dustin Hoang MD [address] [place] [address] [facility] [address] [place] [address] Referral ID Status Reason Start Date Expiration Date Visits Requested Visits Authorized [id number] Pending Review Auto-Generat ed Referral 11/21/2023 11/20/2024 1 1 [facility] Outpatient Procedure (Routine) - Authorized Specialty Diagnoses / Procedures Referred By Contac t Referred To Contact [facility] Diagnoses [place]ERY (dyspnea on exertion) Procedures OXIMETRY WITH AMBULATION NONINVASIVE EAR/PULSE [place] [address] [place] [id number] Res[facility] [address] [place] [address] Referral ID Status Reason Start Date Expiration Date Visits Requested Visits Authorized [id number] Authorized Auto-Generat ed Referral 11/28/2023 12/27/2024 1 1 [facility] Reason for Referral Specialty Diagnoses / Procedures Referred By Contac t Referred To Contact CT IMAGING Diagnoses Hydronephrosis, unspecified hydronephrosis type Dilation of biliary tract Procedures CT ABDOMEN W IVCON CT ABDOMEN W/CONTRAST Dustin Hoang MD [facility] [place] [address] Ct Imaging Referral ID Status Reason Start Date Expiration Date Visits Requested Visits Authorized [id number] Authorized Auto-Generat ed Referral 08/01/2022 08/31/2023 1 1 Specialty Diagnoses / Procedures Referred By Contac t Referred To Contact Gastroenterology Diagnoses Epigastric pain Procedures CONSULT TO GASTROENTEROLOGY OFFICE/OUTPATIENT NEW HIGH MDM 60-74 MINUTES Dustin Hoang MD [address] [place] [address] Referral ID Status Reason Start Date Expiration Date Visits Requested Visits Authorized [id number] Pending Review PCP Requested Referral 08/17/2022 08/17/2023 1 1 Specialty Diagnoses / Procedures Referred By Royal celis Referred To Contact CT IMAGING Diagnoses Hydronephrosis, unspecified hydronephrosis type Dilation of biliary tract Procedures CT ABDOMEN W IVCON CT ABDOMEN W/CONTRAST Dustin Hoang MD [address] [place] [address] Ct Imaging [place] [address] Referral ID Status Reason Start Date Expiration Date V isits Requested Visits Authorized [id number] Closed Auto-Generate d Referral 08/01/2022 08/31/2023 1 1 Specialty Diagnoses / Procedures Referred By Royal celis Referred To Contact CT IMAGING Diagnoses Ataxia Headache, unspecified headache type Procedures CT BRAIN WO IVCON CT HEAD/BRAIN W/O CONTRAST MATERIAL Dustin Hoang MD [address] [place] [address] Ct Imaging [place] [address] Referral ID Status Reason Start Date Expiration Date V isits Requested Visits Authorized [id number] Closed Auto-Generat ed Referral Patient Cleared - [...] Yes August 14, 2014 5:12pm Power of Nuclear Medicine Supervisor Yes August 14 5 5:12pm Advance Directive Response Recorded Date/ Time Name of Medical Power of Nuclear Medicine Supervisor Meghan Chintan January 29, 2023 3:21pm Advance Directives Yes August 14 5:12pm Living Will Yes January 29 3:21pm Power of Nuclear Medicine Supervisor Yes January 29 023 3:21pm Documents on File Type Date Recorded Patient Entry Clerk Expl anation Advance Directive(s) 12/08/2023 2:05 PM Summary Purpose Additional Source Comments Source Comments (unrecognize d section and content) In the event this informatio n is protected by the Federal Confidentiality of Alcohol and Drug Abuse Patient Records regulations: The Federal rules restrict any use of the information to criminally investigate or prosecute any alcohol or drug abuse patient.[facility] the event this information is protected by the Federal Confidentiality of Alcohol and Drug Abuse Patient Records regulations: The Federal rules restrict any use of the information to criminally investigate or prosecute any alcohol or drug abuse patient.[facility] the event this information is protected by the Federal Confidentiality of Alcohol and Drug Abuse Patient Records regulations: The Federal rules restrict any use of the information to criminally investigate or prosecute any alcohol or drug abuse patient.[facility] the event this information is protected by the Federal Confidentiality of Alcohol and Drug Abuse Patient Records regulations: The Federal rules restrict any use of the information to criminally investigate or prosecute any alcohol or drug abuse patient.[facility] the event this information is protected by the Federal Confidentiality of Alcohol and Drug Abuse Patient Records regulations: The Federal rules restrict any use of the information to criminally investigate or prosecute any alcohol or drug abuse patient.[facility] the event this information is protected by the Federal Confidentiality of Alcohol and Drug Abuse Patient Records regulations: The Federal rules restrict any use of the information to criminally investigate or prosecute any alcohol or drug abuse patient.[facility] the event this information is protected by the Federal Confidentiality of Alcohol and Drug Abuse Patient Records regulations: The Federal rules restrict any use of the information to criminally investigate or prosecute any alcohol or drug abuse patient.[facility] the event this information is protected by the Federal Confidentiality of Alcohol and Drug Abuse Patient Records regulations: The Federal rules restrict any use of the information to criminally investigate or prosecute any alcohol or drug abuse patient.[facility] the event this information is protected by the Federal Confidentiality of Alcohol and Drug Abuse Patient Records regulations: The Federal rules restrict any use of the information to criminally investigate or prosecute any alcohol or drug abuse patient.[facility] the event this information is protected by the Federal Confidentiality of Alcohol and Drug Abuse Patient Records regulations: The Federal rules restrict any use of the information to criminally investigate or prosecute any alcohol or drug abuse patient.[facility] the event this information is protected by the Federal Confidentiality of Alcohol and Drug Abuse Patient Records regulations: The Federal rules restrict any use of the information to criminally investigate or prosecute any alcohol or drug abuse patient.[facility] the event this information is protected by the Federal Confidentiality of Alcohol and Drug Abuse Patient Records regulations: The Federal rules restrict any use of the information to criminally investigate or prosecute any alcohol or drug abuse patient.[facility] the event this information is protected by the Federal Confidentiality of Alcohol and Drug Abuse Patient Records regulations: The Federal rules restrict any use of the information to criminally investigate or prosecute any alcohol or drug abuse patient.[facility] the event this information is protected by the Federal Confidentiality of Alcohol and Drug Abuse Patient Records regulations: The Federal rules restrict any use of the information to criminally investigate or prosecute any alcohol or drug abuse patient.[facility] Hospital[facility] the event this information is protected by the Federal Confidentiality of Alcohol and Drug Abuse Patient Records regulations: The Federal rules restrict any use of the information to criminally investigate or prosecute any alcohol or drug abuse patient.[facility] the event this information is protected by the Federal Confidentiality of Alcohol and Drug Abuse Patient Records regulations: The Federal rules restrict any use of the information to criminally investigate or prosecute any alcohol or drug abuse patient.[facility] Hospital[facility] the event this information is protected by the Federal Confidentiality of Alcohol and Drug Abuse Patient Records regulations: The Federal rules restrict any use of the information to criminally investigate or prosecute any alcohol or drug abuse patient.[facility] the event this information is protected by the Federal Confidentiality of Alcohol and Drug Abuse Patient Records regulations: The Federal rules restrict any use of the information to criminally investigate or prosecute any alcohol or drug abuse patient.[facility] the event this information is protected by the Federal Confidentiality of Alcohol and Drug Abuse Patient Records regulations: The Federal rules restrict any use of the information to criminally investigate or prosecute any alcohol or drug abuse patient.[facility] the event this information is protected by the Federal Confidentiality of Alcohol and Drug Abuse Patient Records regulations: The Federal rules restrict any use of the information to criminally investigate or prosecute any alcohol or drug abuse patient.[facility] the event this information is protected by the Federal Confidentiality of Alcohol and Drug Abuse Patient Records regulations: The Federal rules restrict any use of the information to criminally investigate or prosecute any alcohol or drug abuse patient.[facility] Hospital[facility] the event this information is protected by the Federal Confidentiality of Alcohol and Drug Abuse Patient Records regulations: The Federal rules restrict any use of the information to criminally investigate or prosecute any alcohol or drug abuse patient.[facility]In the event this information is protected by the Federal Confidentiality of Alcohol and Drug Abuse Patient Records regulations: The Federal rules restrict any use of the information to criminally investigate or prosecute any alcohol or drug abuse patient.[facility] the event this information is protected by the Federal Confidentiality of Alcohol and Drug Abuse Patient Records regulations: The Federal rules restrict any use of the information to criminally investigate or prosecute any alcohol or drug abuse patient.[facility] HospitalIn the event this information is protected by the Federal Confidentiality of Alcohol and Drug Abuse Patient Records regulations: The Federal rules restrict any use of the information to criminally investigate or prosecute any alcohol or drug abuse patient.[facility] HospitalIn the event this information is protected by the Federal Confidentiality of Alcohol and Drug Abuse Patient Records regulations: The Federal rules restrict any use of the information to criminally investigate or prosecute any alcohol or drug abuse patient.[facility] HospitalIn the event this information is protected by the Federal Confidentiality of Alcohol and Drug Abuse Patient Records regulations: The Federal rules restrict any use of the information to criminally investigate or prosecute any alcohol or drug abuse patient.[facility] Hospital[facility] the event this information is protected by the Federal Confidentiality of Alcohol and Drug Abuse Patient Records regulations: The Federal rules restrict any use of the information to criminally investigate or prosecute any alcohol or drug abuse patient.[facility] Hospital[facility] the event this information is protected by the Federal Confidentiality of Alcohol and Drug Abuse Patient Records regulations: The Federal rules restrict any use of the information to criminally investigate or prosecute any alcohol or drug abuse patient.[facility] HospitalIn the event this information is protected by [...] or prosecute any alcohol or drug abuse patient.[facility] Hospital[facility] the event this information is protected by the Federal Confidentiality of Alcohol and Drug Abuse Patient Records regulations: The Federal rules restrict any use of the information to criminally investigate or prosecute any alcohol or drug abuse patient.[facility] HospitalIn the event this information is protected by the Federal Confidentiality of Alcohol and Drug Abuse Patient Records regulations: The Federal rules restrict any use of the information to criminally investigate or prosecute any alcohol or drug abuse patient.[facility] HospitalIn the event this information is protected by the Federal Confidentiality of Alcohol and Drug Abuse Patient Records regulations: The Federal rules restrict any use of the information to criminally investigate or prosecute any alcohol or drug abuse patient.[facility] HospitalIn the event this information is protected by the Federal Confidentiality of Alcohol and Drug Abuse Patient Records regulations: The Federal rules restrict any use of the information to criminally investigate or prosecute any alcohol or drug abuse patient.[facility] HospitalIn the event this information is protected by the Federal Confidentiality of Alcohol and Drug Abuse Patient Records regulations: The Federal rules restrict any use of the information to criminally investigate or prosecute any alcohol or drug abuse patient.[facility] HospitalIn the event this information is protected by the Federal Confidentiality of Alcohol and Drug Abuse Patient Records regulations: The Federal rules restrict any use of the information to criminally investigate or prosecute any alcohol or drug abuse patient.[facility] HospitalIn the event this information is protected by the Federal Confidentiality of Alcohol and Drug Abuse Patient Records regulations: The Federal rules restrict any use of the information to criminally investigate or prosecute any alcohol or drug abuse patient.[facility] HospitalIn the event this information is protected by the Federal Confidentiality of Alcohol and Drug Abuse Patient Records regulations: The Federal rules restrict any use of the information to criminally investigate or prosecute any alcohol or drug abuse patient.[facility] HospitalIn the event this information is protected by the Federal Confidentiality of Alcohol and Drug Abuse Patient Records regulations: The Federal rules restrict any use of the information to criminally investigate or prosecute any alcohol or drug abuse patient.[facility] HospitalIn the event this information is protected by the Federal Confidentiality of Alcohol and Drug Abuse Patient Records regulations: The Federal rules restrict any use of the information to criminally investigate or prosecute any alcohol or drug abuse patient.[facility] HospitalIn the event this information is protected by the Federal Confidentiality of Alcohol and Drug Abuse Patient Records regulations: The Federal rules restrict any use of the information to criminally investigate or prosecute any alcohol or drug abuse patient.[facility] HospitalIn the event this information is protected by the Federal Confidentiality of Alcohol and Drug Abuse Patient Records regulations: The Federal rules restrict any use of the information to criminally investigate or prosecute any alcohol or drug abuse patient.[facility] HospitalIn the event this information is protected by the Federal Confidentiality of Alcohol and Drug Abuse Patient Records regulations: The Federal rules restrict any use of the information to criminally investigate or prosecute any alcohol or drug abuse patient.[facility] HospitalIn the event this information is protected by the Federal Confidentiality of Alcohol and Drug Abuse Patient Records regulations: The Federal rules restrict any use of the information to criminally investigate or prosecute any alcohol or drug abuse patient.[facility] HospitalIn the event this information is protected by the Federal Confidentiality of Alcohol and Drug Abuse Patient Records regulations: The Federal rules restrict any use of the information to criminally investigate or prosecute any alcohol or drug abuse patient.[facility] HospitalIn the event this information is protected by the Federal Confidentiality of Alcohol and Drug Abuse Patient Records regulations: The Federal rules restrict any use of the information to criminally investigate or prosecute any alcohol or drug abuse patient.[facility] HospitalIn the event this information is protected by the Federal Confidentiality of Alcohol and Drug Abuse Patient Records regulations: The Federal rules restrict any use of the information to criminally investigate or prosecute any alcohol or drug abuse patient.[facility] HospitalIn the event this information is protected by the Federal Confidentiality of Alcohol and Drug Abuse Patient Records regulations: The Federal rules restrict any use of the information to criminally investigate or prosecute any alcohol or drug abuse patient.[facility] HospitalIn the event this information is protected by the Federal Confidentiality of Alcohol and Drug Abuse Patient Records regulations: The Federal rules restrict any use of the information to criminally investigate or prosecute any alcohol or drug abuse patient.[facility] HospitalIn the event this information is protected by the Federal Confidentiality of Alcohol and Drug Abuse Patient Records regulations: The Federal rules restrict any use of the information to criminally investigate or prosecute any alcohol or drug abuse patient.[facility] HospitalIn the event this information is protected by the Federal Confidentiality of Alcohol and Drug Abuse Patient Records regulations: The Federal rules restrict any use of the information to criminally investigate or prosecute any alcohol or drug abuse patient.[facility] HospitalIn the event this information is protected by the Federal Confidentiality of Alcohol and Drug Abuse Patient Records regulations: The Federal rules restrict any use of the information to criminally investigate or prosecute any alcohol or drug abuse patient.[facility] HospitalIn the event this information is protected by the Federal Confidentiality of Alcohol and Drug Abuse Patient Records regulations: The Federal rules restrict any use of the information to criminally investigate or prosecute any alcohol or drug abuse patient.[facility] HospitalIn the event this information is protected by the Federal Confidentiality of Alcohol and Drug Abuse Patient Records regulations: The Federal rules restrict any use of the information to criminally investigate or prosecute any alcohol or drug abuse patient.[facility] HospitalIn the event this information is protected by the Federal Confidentiality of Alcohol and Drug Abuse Patient Records regulations: The Federal rules restrict any use of the information to criminally investigate or prosecute any alcohol or drug abuse patient.[facility] HospitalIn the event this information is protected by the Federal Confidentiality of Alcohol and Drug Abuse Patient Records regulations: The Federal rules restrict any use of the information to criminally investigate or prosecute any alcohol or drug abuse patient.[facility] HospitalIn the event this information is protected by the Federal Confidentiality of Alcohol and Drug Abuse Patient Records regulations: The Federal rules restrict any use of the information to criminally investigate or prosecute any alcohol or drug abuse patient.[facility] HospitalIn the event this information is protected by the Federal Confidentiality of Alcohol and Drug Abuse Patient Records regulations: The Federal rules restrict any use of the information to criminally investigate or prosecute any alcohol or drug abuse patient.[facility] HospitalIn the event this information is protected by the Federal Confidentiality of Alcohol and Drug Abuse Patient Records regulations: The Federal rules restrict any use of the information to criminally investigate or prosecute any alcohol or drug abuse patient.[facility] HospitalIn the event this information is protected by the Federal Confidentiality of Alcohol and Drug Abuse Patient Records regulations: The Federal rules restrict any use of the information to criminally investigate or prosecute any alcohol or drug abuse patient.[facility] HospitalIn the event this information is protected by the Federal Confidentiality of Alcohol and Drug Abuse Patient Records regulations: The Federal rules restrict any use of the information to criminally investigate or prosecute any alcohol or drug abuse patient.[facility] HospitalIn the event this information is protected by the Federal Confidentiality of Alcohol and Drug Abuse Patient Records regulations: The Federal rules restrict any use of the information to criminally investigate or prosecute any alcohol or drug abuse patient.[facility] HospitalIn the event this information is protected by the Federal Confidentiality of Alcohol and Drug Abuse Patient Records regulations: The Federal rules restrict any use of the information to criminally investigate or prosecute any alcohol or drug abuse patient.[facility] HospitalIn the event this information is protected by the Federal Confidentiality of Alcohol and Drug Abuse Patient Records regulations: The Federal rules restrict any use of the information to criminally investigate or prosecute any alcohol or drug abuse patient.[facility] HospitalIn the event this information is protected by the Federal Confidentiality of Alcohol and Drug Abuse Patient Records regulations: The Federal rules restrict any use of the information to criminally investigate or prosecute any alcohol or drug abuse patient.[facility] HospitalIn the event this information is protected by the Federal Confidentiality of Alcohol and Drug Abuse Patient Records regulations: The Federal rules restrict any use of the information to criminally investigate or prosecute any alcohol or drug abuse patient.[facility] HospitalIn the event this information is protected by the Federal Confidentiality of Alcohol and Drug Abuse Patient Records regulations: The Federal rules restrict any use of the information to criminally investigate or prosecute any alcohol or drug abuse patient.[facility] HospitalIn the event this information is protected by the Federal Confidentiality of Alcohol and Drug Abuse Patient Records regulations: The Federal rules restrict any use of the information to criminally investigate or prosecute any alcohol or drug abuse patient.[facility] HospitalIn the event this information is protected by the Federal Confidentiality of Alcohol and Drug Abuse Patient Records regulations: The Federal rules restrict any use of the information to criminally investigate or prosecute any alcohol or drug abuse patient.[facility] HospitalIn the event this information is protected by the Federal Confidentiality of Alcohol and Drug Abuse Patient Records regulations: The Federal rules restrict any use of the information to criminally investigate or prosecute any alcohol or drug abuse patient.[facility] HospitalIn the event this information is protected by the Federal Confidentiality of Alcohol and Drug Abuse Patient Records regulations: The Federal rules restrict any use of the information to criminally investigate or prosecute any alcohol or drug abuse patient.[facility] HospitalIn the event this information is protected by the Federal Confidentiality of Alcohol and Drug Abuse Patient Records regulations: The Federal rules restrict any use of the information to criminally investigate or prosecute any alcohol or drug abuse patient.[facility] HospitalIn the event this information is protected by the Federal Confidentiality of Alcohol and Drug Abuse Patient Records regulations: The Federal rules restrict any use of the information to criminally investigate or prosecute any alcohol or drug abuse patient.[facility] HospitalIn the event this information is protected by the Federal Confidentiality of Alcohol and Drug Abuse Patient Records regulations: The Federal rules restrict any use of the information to criminally investigate or prosecute any alcohol or drug abuse patient.[facility] HospitalIn the event this information is protected by the Federal Confidentiality of Alcohol and Drug Abuse Patient Records regulations: The Federal rules restrict any use of the information to criminally investigate or prosecute any alcohol or drug abuse patient.[facility] HospitalIn the event this information is protected by the Federal Confidentiality of Alcohol and Drug Abuse Patient Records regulations: The Federal rules restrict any use of the information to criminally investigate or prosecute any alcohol or drug abuse patient.[facility] HospitalIn the event this information is protected by the Federal Confidentiality of Alcohol and Drug Abuse Patient Records regulations: The Federal rules restrict any use of the information to criminally investigate or prosecute any alcohol or drug abuse patient.[facility] HospitalIn the event this information is protected by the Federal Confidentiality of Alcohol and Drug Abuse Patient Records regulations: The Federal rules restrict any use of the information to criminally investigate or prosecute any alcohol or drug abuse patient.[facility] HospitalIn the event this information is protected by [...] or prosecute any alcohol or drug abuse patient.[facility] HospitalIn the event this information is protected by the Federal Confidentiality of Alcohol and Drug Abuse Patient Records regulations: The Federal rules restrict any use of the information to criminally investigate or prosecute any alcohol or drug abuse patient.[facility] HospitalIn the event this information is protected by the Federal Confidentiality of Alcohol and Drug Abuse Patient Records regulations: The Federal rules restrict any use of the information to criminally investigate or prosecute any alcohol or drug abuse patient.[facility] HospitalIn the event this information is protected by the Federal Confidentiality of Alcohol and Drug Abuse Patient Records regulations: The Federal rules restrict any use of the information to criminally investigate or prosecute any alcohol or drug abuse patient.[facility] Reason for Visit (unrecogniz ed section and [...] Reason Comments Results Labs Reason Comments Outside Yzth-Als-VLV Ordered Reason Comments F/U 6 months Reason [...] CT ABDOMEN W/CONTRAST Dustin Hoang MD [address] [place] [address] [place] [address] Referral ID Status Reason Start Date Expiration Date V isits Requested Visits Authorized [id number] Closed Auto-Generate d Referral 08/01/2022 08/31/2023 1 1 Reason Comments Radiology US Specialty Diagnoses / Procedures Referred By Alanac t Referred To Contact US IMAGING Diagnoses Epigastric pain Procedures US ABD RT UPPER QUADRANT US ABDOMINAL REAL TIME W/IMAGE LIMITED Dustin Hoang MD [address] [place] [address] [place] [address] Referral ID Status Reason Start Date Expiration Date V isits Requested Visits Authorized [id number] Closed Auto-Generate d Referral 07/25/2022 08/24/2023 1 [...] SPMTRY PRE&POST-BRNCDILAT ADMN Dustin Hoang MD [address] [place] [address] [facility] [address] [place] [address] Referral ID Status Reason Start Date Expiration Date V isits Requested Visits Authorized [id number] Closed Auto-Generate d Referral 11/21/2023 12/20/2024 1 1 Reason Comments Follow Up Specialty Diagnoses / Procedures Referred By Contac t Referred To Contact CT IMAGING Diagnoses Ataxia Headache, unspecified headache type Procedures CT BRAIN WO IVCON CT HEAD/BRAIN W/O CONTRAST MATERIAL Dustin Hoang MD [facility] [place] [id number] Imaging [facility]95 Referral ID Status Reason Start Date Expiration Date V isits Requested Visits Authorized [id number] Closed Auto-Generat ed Referral Patient Cleared - Admin/Chairm an/Director advise to proceed or did not respond 11/24/2023 06/08/2024 1 1 Reason Comments Appointment Nuclear Stress Test - [facility] Specialty Diagnoses / Procedures Referred By Contac t Referred To Contact [facility] Diagnoses MONTGOMERY (dyspnea on exertion) Procedures OXIMETRY WITH AMBULATION NONINVASIVE EAR/PULSE OXIMETRY MULTIPLE DETER Dustin Hoang MD [address] [place] [address] [facility] [address] [place] [address] Referral ID Status Reason Start Date Expiration Date V isits Requested Visits Authorized [id number] Closed Auto-Generate d Referral 11/28/2023 12/27/2024 1 1 Reason Onset Date Comments Refill Request 02/17/2024 Reason Onset Date Comments Refill Request 02/18/2024 Reason Comments Outside Testing [facility] - xray Reason Onset Date Comments Refill [...] Care Teams (unrecognized sec tion and content) Chief Nurse Executive Relationship Specialty Start Date End Date Dustin Hoang MD [facility] [place] [address] PCP - General Family Practice 05/09/17 Chief Nurse Executive Relationship Specialty Start Date End Date Dustin Hoang MD [address] [place] [address], [place] [address] PCP - General Family Practice 05/09/17 Chief Nurse Executive Relationship Specialty Start Date End Date Dustin Hoang MD [address] [place] [address], [place] [address] PCP - General Family Practice 05/09/17 Chief Nurse Executive Relationship Specialty Start Date End Date Dustin Hoang MD [address] [place] [address], [place] [address] PCP - General Family Practice 05/09/17 Chief Nurse Executive Relationship Specialty Start Date End Date Dustin Hoang MD [address] [place] [address], [place] [address] PCP - General Family Practice 05/09/17 Chief Nurse Executive Relationship Specialty Start Date End Date Dustin Hoang MD [address] [place] [address], [place] [address] PCP - General Family Practice 05/09/17 Chief Nurse Executive Relationship Specialty Start Date End Date Dustin Hoang MD [address] [place] [address], [place] [address] PCP - General Family Practice 05/09/17 Chief Nurse Executive Relationship Specialty Start Date End Date Dustin Hoang MD [address] [place] [address] PCP - General Family Practice 05/09/17 Chief Nurse Executive Relationship Specialty Start Date End Date Dustin Hoang MD [facility] [place] [address] PCP - General Family Practice 05/09/17 Chief Nurse Executive Relationship Specialty Start Date End Date Dustin Hoang MD [facility] [place] [address] PCP - General Family Medicine 05/09/17 Chief Nurse Executive Relationship Specialty Start Date End Date Dustin Hoang MD [address] [place] [address], [place] [address] PCP - General Family Medicine 05/09/17 Chief Nurse Executive Relationship Specialty Start Date End Date Dustin Hoang MD [address] [place] [address], [place] [address] PCP - General Family Medicine 05/09/17 Chief Nurse Executive Relationship Specialty Start Date End Date Dustin Hoang MD [address] [place] [address], [place] [address] PCP - General Family Medicine 05/09/17 Chief Nurse Executive Relationship Specialty Start Date End Date Dustin Hoang MD [facility] [place] [address] PCP - General Family Medicine 05/09/17 Chief Nurse Executive Relationship Specialty Start Date End Date Dustin Hoang MD [address] [place] [address], [place] [address] PCP - General Family Medicine 05/09/17 Chief Nurse Executive Relationship Specialty Start Date End Date Dustin Hoang MD [address] [place] [address], [place] [address] PCP - General Family Medicine 05/09/17 Chief Nurse Executive Relationship Specialty Start Date End Date Dustin Hoang MD [address] [place] [address] PCP - General Family Medicine 05/09/17 Chief Nurse Executive Relationship Specialty Start Date End Date Dustin Hoang MD [address] [place] [address] PCP - General Family [facility] 05/09/17 Chief Nurse Executive Relationship Specialty Start Date End Date Dustin Hoang MD [address] [place] [address] PCP - General Family [facility] 05/09/17 Chief Nurse Executive Relationship Specialty Start Date End Date Dustin Hoang MD [address] [place] [address] PCP - General Family [facility] 05/09/17 Team Status: Active Member Role Status Dates Dr. Dustin Joyner MD Family Provider Active Dr. Dustin Hoang MD Primary Care Provider Active Team Status: Inactive Member Role Status Dates Dr. Dustin Joyner MD Primary Care Provider, Referri ng [...] Crum DO Attending Provider, Referring Provider Active Chief Nurse Executive Relationship Specialty Start Date End Date Dustin Hoang MD [address] [place] [address] PCP - General Family Medicine 05/09/17 Team Status: Active Member Role Status Dates Dr. Dustin Hoang MD Primary Care Pro vider, Referring Provider, Other Provider Active Dr. Jenn Saleh MD Attending Provider Active Team Status: Active Member Role Status Dates Dr. Dustin Haong MD Primary Care Pro vider, Attending Provider, Referring Provider Active Team Status: Inactive Member Role Status Dates Dr. Dustin Hoang MD Primary Care Provider Active Dr. Flynn Castillo DO Emergency Provider Active Chief Nurse Executive Relationship Specialty Start Date End Date Dustin Hoang MD [address] [place] [address] PCP - General Family Medicine 05/09/17 Chief Nurse Executive Relationship Specialty Start Date End Date Dustin Hoang MD [address] [place] [address] PCP - General Family Medicine 05/09/17 Chief Nurse Executive Relationship Specialty Start Date End Date Dustin Hoang MD [address] [place] [address] PCP - General Family Medicine 05/09/17 Chief Nurse Executive Relationship Specialty Start Date End Date Dustin Hoang MD [address] [place] [address] PCP - General Family Medicine 05/09/17 Chief Nurse Executive Relationship Specialty Start Date End Date Dustin Hoang MD [address] [place] [address] PCP - General Family Medicine 05/09/17 Chief Nurse Executive Relationship Specialty Start Date End Date Dustin Hoang MD [address] [place] [address] PCP - General Family Medicine 05/09/17 Chief Nurse Executive Relationship Specialty Start Date End Date Dustin Hoang MD [address] [place] [address] PCP - General Family Medicine 05/09/17 Chief Nurse Executive Relationship Specialty Start Date End Date Dustin Hoang MD [address] [place] [address] PCP - General Family Medicine 05/09/17 Chief Nurse Executive Relationship Specialty Start Date End Date Dustin Hoang MD [address] [place] [address] PCP - General Family Medicine 05/09/17 Chief Nurse Executive Relationship Specialty Start Date End Date Dustin Hoang MD [address] [place] [address] PCP - General Family Medicine 05/09/17 Chief Nurse Executive Relationship Specialty Start Date End Date Dustin Hoang MD [address] [place] [address] PCP - General Family Medicine 05/09/17 Chief Nurse Executive Relationship Specialty Start Date End Date Dustin Hoang MD [address] [place] [address] PCP - General Family Medicine 05/09/17 Chief Nurse Executive Relationship Specialty Start Date End Date Dustin Hoang MD [address] [place] [address] PCP - General Family Medicine 05/09/17 Chief Nurse Executive Relationship Specialty Start Date End Date Dustin Hoang MD [address] [place] [address] PCP - General Family Medicine 05/09/17 Chief Nurse Executive Relationship Specialty Start Date End Date Dustin Hoang MD [address] [place] [address] PCP - General Family Medicine 05/09/17 Chief Nurse Executive Relationship Specialty Start Date End Date Dustin Hoang MD [address] [place] [address] PCP - General Family Medicine 05/09/17 Chief Nurse Executive Relationship Specialty Start Date End Date Dustin Hoang MD [address] [place] [address] PCP - General Family Medicine 05/09/17 Chief Nurse Executive Relationship Specialty Start Date End Date Dustin Hoang MD [address] [place] [address] PCP - General Family Medicine 05/09/17 Chief Nurse Executive Relationship Specialty Start Date End Date Dustin Hoang MD [address] [place] [address] PCP - General Family Medicine 05/09/17 Chief Nurse Executive Relationship Specialty Start Date End Date Dustin Hoang MD [address] [place] [address] PCP - General Family Medicine 05/09/17 Chief Nurse Executive Relationship Specialty Start Date End Date Dustin Hoang MD [address] [place] [address] PCP - General Family Medicine 05/09/17 Chief Nurse Executive Relationship Specialty Start Date End Date Dustin Hoang MD [address] [place] [address] PCP - General Family Medicine 05/09/17 Chief Nurse Executive Relationship Specialty Start Date End Date Dustin Hoang MD [address] [place] [address] PCP - General Family Medicine 05/09/17 Shakeel Collins, RISSA.QLIKVIEW DEVELOPER [address] [facility] [place] [address] Cloth Spreader Family Medicine 05/15/24 Mamie Sotelo PA-C [address] [place] [address] Cloth Spreader Family Medicine 05/15/24 Chief Nurse Executive Relationship Specialty Start Date End Date Dustin Hoang MD [address] [place] [address] PCP - General Family Medicine 05/09/17 Shakeel Collins, PLANT CONTROL AIDE.[employer]IKVIEW DEVELOPER [address] [facility] [place] [address] Cloth Spreader Family Medicine 05/15/24 Mamie Sotelo PA-C [address] [place] [address] Cloth Spreader Family Medicine 05/15/24 Chief Nurse Executive Relationship Specialty Start Date End Date Dustin Hoang MD [address] [place] [address] PCP - General Family Medicine 05/09/17 Shakeel Collins APRN.[employer]IKVIEW DEVELOPER [address] [facility] [place] [address] Cloth Spreader Family Medicine 05/15/24 Mamie Sotelo PA-C [address] [place] [address] Cloth Spreader Family Medicine 05/15/24 Chief Nurse Executive Relationship Specialty Start Date End Date Dustin Hoang MD [address] [place] [address] PCP - General Family Medicine 05/09/17 Shakeel Collins APRN.[employer]IKVIEW DEVELOPER [address] [place] [address] Cloth Spreader Family Medicine 05/15/24 Mamie Sotelo PA-C [address] [place] [address] Cloth Spreader Family Medicine 05/15/24 Chief Nurse Executive Relationship Specialty Start Date End Date Dustin Hoang MD [address] [place] [address] PCP - General Family Medicine 05/09/17 Shakeel Collins APRN.[employer]IK[employer] DEVELOPER [address] [place] [address] Cloth Spreader Family Medicine 05/15/24 Mamie Sotelo PA-C [address] [place] [address] Cloth Spreader Family Medicine 05/15/24 Chief Nurse Executive Relationship Specialty Start Date End Date Dustni Hoang MD [address] [place] [address] PCP - General Family Medicine 05/09/17 Shakeel Collins, PLANT CONTROL AIDE.[employer] DEVELOPER [address] [place] [address] [facility] 05/15/24 Mamie Sotelo PA-C [address] [place] [address] [facility] 05/15/24 Chief Nurse Executive Relationship Specialty Start Date End Date Dustin Hoang MD [address] [place] [address] PCP - General Family Medicine 09/13/24 Shakeel Collins APRN.[employer] DEVELOPER [address] [place] [address] [facility] 05/15/24 Mamie Sotelo PA-C [address] [place] [address] [facility] 05/15/24 Chief Nurse Executive Relationship Specialty Start Date End Date Dustin Hoang MD [address] [place] [address] PCP - General Family Medicine 09/13/24 Shakeel Collins, RISSA.[email or web address] DEVELOPER [facility] [place] [address] [facility] 11/08/24 Mamie Sotelo PA-C [address] [place] [address] [facility] 11/08/24 Goals (unrecognized section and content) Goals may be documented in a n alternate sectionGoals may be documented in an alternate sectionGoals may be documented in an alternate section INFORMATION SOURCE (unrecogn ized section and content) DATE CREATED AUTHOR 12/18/2022 [facility] DATE CREATED AUTHOR AUTHOR'S ANDREI ATION 04/16/2024 [facility] DATE CREATED AUTHOR AUTHOR'S ANDREI CRONIN 07/12/2024 [facility] FOR RECORDS PERTAINING TO PATIENTS WHO ARE [...] BE BASED ON THE PRIMARY CLINICAL RECORDS. [facility] [employer] [facility]. provides no warranty or guarantee of the accuracy or completeness of information in this document.
--- OUTSIDE RECORDS SUMMARY | 2024-11-29 23:27 | XMS RPT_ITS | CCD ---
Author Organization [facility] Care Team Providers Care Laundry Sorter Name Role Phone Dustin Hoang MD Primary Care Provider Dr. Dustin Joyner Primary Care Provider Dr. Dustin Joyner Referring Provider Dr. Kevon Crum Attending Provider [phone] Dustin Hoang MD Primary Care Provider DUSTIN HOANG Primary Care Unavailable Dr. Dustin Hoang Primary Care Provider Dr. Dustin Hoang Referring Provider Dr. Dustin Hoang Other Provider Dr. Jenn Saleh Attending Provider Dustin Hoang MD Primary Care Provider [phone] Dustin Hoang MD Primary Care Provider Kevon [...] Primary Care Unavailable Dustin Hoang Referring Unavailable Jhon Alba Attending UnavailDustin Warner Referring Unavailable Dustin Hoang Primary Care Unavailable John Alba Attending UnavailDustin Warner Consulting Unavailable Viktor, Dustin Referring Unavailable Viktor, Dustin Primary Care Unavailable Karina BICYCLE REPAIR TECHNICIAN.LISAAldoShakeel Unavailable Mamie Sotelo PA-C Unavailable VIKTOR, DUSTIN [...] Dustin Hoang MD Primary Care Provider Karina BICYCLE REPAIR TECHNICIAN.LISAShakeel Unavailable Mamie Sotelo PA-C Unavailable Allergies Allergy Classification Reported Allergen(s) Allergy Type Date of Onset Reaction(s) Facility Adhesive Tape (4 sources) Adhesive Tape Substance Allergy 1 Rash [facility] Opioid Agonists (4 sources) Codeine Drug Allergy 7 GI Upset [facility] (20 sources) Adhesive Tape; Translations: [ADHESIVE TAPE (ROSINS)] Propensity to adverse reactions to substance 1 Rash [facility] Work Phone: (20 sources) Codeine; Translations: [CODEINE] Drug Allergy 7 GI Upset [facility] Work Phone: (20 sources) Thiazides; Translations: [THIAZIDES] Drug Intolerance 3 Other: See Comments [facility] Work Phone: (4 sources) Adhesive Tape; Translations: [adhesive tape] Allergy to substance 3 Other [facility] (1 source) Codeine Drug Allergy 4 [facility] Repository Medications Current Medications Medication Drug [...] DAILY NEEDED August 15, 2014 10:37am amylase 187183 unt / lipase 36213 unt / protease [id number] unt delayed release oral capsule (20 sources) Start: 05-20-2023 CREON 36,000-1 14,000- 180,000 unit delayed release capsule 05/20/2023 Active Start: 12-04-2022 End: 01-08-2023 take 53853-891451 capsules by mouth three times daily at mealtime Tuurwx-Ljwoejuy-Siyqnuv (Creon) 36,000-114,000- 180,000 unit capsule,delayed release(DR/EC) Active [...] Comment on above: Take 1 tablet by [facility] once daily. zolpidem tartrate 5 mg [...] Comment on above: Take 1 capsule by [facility] once daily. meloxicam 15 mg oral tablet [...] 2 Episodic Other aftercare (1 source) Other intermediate (current) drug therapy; Translations: [Medication management] Onset: [...] Test Name Value Interpretation Reference Range Facility [facility] 07-12-2024 [facility] Telephone ([facility]) NIDHI NÚÑEZ ([id number]) 1940 F Date Time Provider Department 07/12/24 SHAKEEL COLLINS During your visit today, we recorded the following information about you: Shakeel Collins APRN.TRESTLE MAINTERNANCE LABORER 07/12/2024 10:05 AM Signed Please let patient [...] by WORKMAN SAMANTHA ROBINS on 07/12/24 Normal [facility] Bacteria Ur Culton Bacteria identified Cx Nom (U) ORGANISM ID: 1 >=100,000 CFU/ml Streptococcus anginosus No susceptibility testing done. Normal [facility] Comment on above: Performed By: #### 6 30-4 #### [facility] CLIA [id number] [address] [place] [address] [facility] C[facility] Telephone ([facility]) NIDHI NÚÑEZ ([id number]) 1940 F Date Time Provider Department 07/05/24 [facility] your visit today, we recorded the following information about you: Shakeel Collins APRN.TRESTLE MAINTERNANCE LABORER 07/05/2024 1:23 PM Signed Please let patient know her hgba1c is up slightly to 5.7. Also find out if she is having any urinary symptoms. Her other labs are stable. Alice Daniels OCCA 07/05/2024 3:47 PM Signed TC to patient who verbalized understanding of below. Patient states she has been having itching but denies burning/pain with urination, frequency, or odor. CHIP Rueda Danielle, APRN.TRESTLE MAINTERNANCE LABORER 07/05/2024 5:03 PM Signed I would like [...] [R82.90] Order(s):BACTERIAL CULTURE, URINE [SQURCUL] Order #: [id number] FUTURE Prescriptions as of 07/08/2024 - loratadine [...] Status:Closed by SHAKEEL COLLINS on 07/08/24 Normal [facility] CBC W Auto Differential pane l (Bld)on 07-02-2024 Basophils (Bld) [#/Vol] 0.04 10*3/uL Normal <0.11 [facility] Comment on above: Order Comment: Speci men Type: BLOOD SPECIMENOrdering Facility: [facility] Address: [address] [place], [place] [address] [address] Performed By: #### 5 7021-8 ####[facility]IA [id number] [place] [address] [place] Basophils/100 WBC (Bld) 0.6 % Normal [facility] Comment on above: Order Comment: Speci men Type: BLOOD SPECIMENOrdering Facility: [facility] Address: [address] [place] [address] Performed By: #### 5 7021-8 ####[facility]CLIA [id number] [place] [address] [place] Differential cell count method Nom (Bld) Auto Normal [facility] Comment on above: Order Comment: Speci men Type: BLOOD SPECIMENOrdering Facility: [facility] Address: [address] [place] [address] Performed By: #### 5 7021-8 ####[facility]CLIA [id number] [place] [address] [place] Eosinophils (Bld) [#/Vol] 0.29 10*3/uL Normal <0.46 [facility] Comment on above: Order Comment: Speci men Type: BLOOD SPECIMENOrdering Facility: [facility] Address: [address] [place] [address] Performed By: #### 5 7021-8 ####[facility]CLIA [id number] [place] [address] [place] Eosinophils/100 WBC (Bld) 4.4 % Normal [facility] Comment on above: Order Comment: Speci men Type: BLOOD SPECIMENOrdering Facility: [facility] Address: [address] [place] [address] Performed By: #### 5 7021-8 ####[facility]CLIA [id number] [place] [address] [place] Erythrocyte distribution width (RBC) [Ratio] 13.3 % Normal 11.5-15.0 [facility] Comment on above: Order Comment: Speci men Type: BLOOD SPECIMENOrdering Facility: [facility] Address: [address] [place] [address] Performed By: #### 5 7021-8 ####[facility]CLIA [id number] [place] [address] [place] Hematocrit (Bld) [Volume fraction] 39.1 % Normal 36.0-46.0 [facility] Comment on above: Order Comment: Speci men Type: BLOOD SPECIMENOrdering Facility: [facility] Address: [address] [place] [address] Performed By: #### 5 7021-8 ####[facility]CLIA [id number] [place] [address] [place] Hemoglobin (Bld) [Mass/Vol] 12.2 g/dL Normal 11.5-15. 5 [facility] Comment on above: Order Comment: Speci men Type: BLOOD SPECIMENOrdering Facility: [facility] Address: [address] [place] [address] Performed By: #### 5 7021-8 ####[facility]CLIA [id number] [place] [address] [place] Immature granulocytes (Bld) [#/Vol] 10*3/uL Normal <0.10 [facility] Comment on above: Order Comment: Speci men Type: BLOOD SPECIMENOrdering Facility: [facility] Address: [address] [place] [address] Performed By: #### 5 7021-8 ####[facility]CLIA [id number] [place] [address] [place] Immature granulocytes/100 WBC (Bld) 0.3 % Normal [facility] Comment on above: Order Comment: Speci men Type: BLOOD SPECIMENOrdering Facility: [facility] Address: [address] [place] [address] Performed By: #### 5 7021-8 ####[facility]CLIA [id number] [place] [address] [place] Lymphocytes (Bld) [#/Vol] 1.78 10*3/uL Normal 1.00-4.0 0 [facility] Comment on above: Order Comment: Speci men Type: BLOOD SPECIMENOrdering Facility: [facility] Address: [address] [place] [address] Performed By: #### 5 7021-8 ####[facility] LABIA [id number] [place] [address] [place] Lymphocytes/100 WBC (Bld) 27.2 % Normal [facility] Comment on above: Order Comment: Speci men Type: BLOOD SPECIMENOrdering Facility: [facility] Address: [address] [place] [address] Performed By: #### 5 7021-8 ####[facility] [id number] [place] [address] [place] MCH (RBC) [Entitic mass] 27.3 pg Normal 26.0-34.0 [facility] Comment on above: Order Comment: Speci men Type: BLOOD SPECIMENOrdering Facility: [facility] Address: [address] [place] [address] Performed By: #### 5 7021-8 ####[facility] LABIA [id number] [place] [address] [place] MCHC (RBC) [Mass/Vol] 31.2 g/dL Normal 30.5-36.0 [facility] Comment on above: Order Comment: Speci men Type: BLOOD SPECIMENOrdering Facility: [facility] Address: [address] [place] [address] Performed By: #### 5 7021-8 ####[facility]IA [id number] [place] [address] [place] MCV (RBC) [Entitic vol] 87.5 fL Normal 80.0-100.0 [facility] Comment on above: Order Comment: Speci men Type: BLOOD SPECIMENOrdering Facility: [facility] Address: [address] [place] [address] Performed By: #### 5 7021-8 ####[facility]CLIA [id number] [place] [address] [place] Monocytes (Bld) [#/Vol] 0.70 10*3/uL Normal <0.87 [facility] Comment on above: Order Comment: Speci men Type: BLOOD SPECIMENOrdering Facility: [facility] Address: [address] [place] [address] Performed By: #### 5 7021-8 ####[facility]CLIA [id number] [place] [address] [place] Monocytes/100 WBC (Bld) 10.7 % Normal [facility] Comment on above: Order Comment: Speci men Type: BLOOD SPECIMENOrdering Facility: [facility] Address: [address] [place] [address] Performed By: #### 5 7021-8 ####[facility]CLIA [id number] [place] [address] [place] Neutrophils (Bld) [#/Vol] 3.71 10*3/uL Normal 1.45-7.5 0 [facility] Comment on above: Order Comment: Speci men Type: BLOOD SPECIMENOrdering Facility: [facility] Address: [address] [place] [address] Performed By: #### 5 7021-8 ####[facility]CLIA [id number] [place] [address] [place] Neutrophils/100 WBC (Bld) 56.8 % Normal [facility] Comment on above: Order Comment: Speci men Type: BLOOD SPECIMENOrdering Facility: [facility] Address: [address] [place] [address] Performed By: #### 5 7021-8 ####[facility]CLIA [id number] [place] [address] [place] Nucleated RBC (Bld) [#/Vol] 10*3/uL Normal <0.01 [facility] Comment on above: Order Comment: Speci men Type: BLOOD SPECIMENOrdering Facility: [facility] Address: [address] [place] [address] Performed By: #### 5 7021-8 ####[facility]CLIA [id number] [place] [address] [place] Nucleated RBC/100 WBC (Bld) [Ratio] 0.0 /100 WBC Normal [facility] Comment on above: Order Comment: Speci men Type: BLOOD SPECIMENOrdering Facility: [facility] Address: [address] [place] [address] Performed By: #### 5 7021-8 ####[facility]IA [id number] [place] [address] [place] Platelet mean volume (Bld) [Entitic vol] 10.4 fL Normal 9.0-12.7 [facility] Comment on above: Order Comment: Speci men Type: BLOOD SPECIMENOrdering Facility: [facility] Address: [address] [place] [address] Performed By: #### 5 7021-8 ####[facility]IA [id number] [place] [address] [place] Platelets (Bld) [#/Vol] 197 10*3/uL Normal 150-400 [facility] Comment on above: Order Comment: Speci men Type: BLOOD SPECIMENOrdering Facility: [facility] Address: [address] [place] [address] Performed By: #### 5 7021-8 ####[facility]CLIA [id number] [place] [address] [place] RBC (Bld) [#/Vol] 4.47 10*6/uL Normal 3.90-5.20 [facility] Comment on above: Order Comment: Speci men Type: BLOOD SPECIMENOrdering Facility: [facility] Address: [address] [place] [address] Performed By: #### 5 7021-8 ####[facility]CLIA [id number] [place] [address] [place] WBC (Bld) [#/Vol] 6.54 10*3/uL Normal 3.70-11.00 [facility] Comment on above: Order Comment: Speci men Type: BLOOD SPECIMENOrdering Facility: [facility] Address: [address] [place] [address] Performed By: #### 5 7021-8 ####[facility]CLIA [id number] [address] [place] CNOVon 07-02-2024 [facility] NIDHI NÚÑEZ ([id number]) 1940 F Date Time Provider Department 07/02/24 2:00 PM SHAKEEL COLLINS During your visit today, we recorded the following information about you: Pulse Blood pressure Weight 55/minute 127/70 73 kg Shakeel Collins APRN.TRESTLE MAINTERNANCE LABORER 07/02/2024 2:29 PM Signed Nidhi Núñez is [...] Smoke, vape, chews tobacco No Difficulty hearing [place], no hearing aids Difficulty seeing Wears glasses, has appt at eye doctor coming up Current Providers Specialists: I have reviewed specialist-related care of the patient in the medical record. Current care team: Patient Care Team: Dustin Hoang MD as PCP - General (Family Medicine) Shakeel Collins APRN.LISA as Monument Erector (Family Medicine) Mamie Sotelo PA-C as Monument Erector (Family Medicine) Medical/Family history review Reviewed and [...] Tape (Jeannette* (more content not included)... Normal [facility] Comprehensive metabolic 2000 panelon 07-02-2024 Albumin [Mass/Vol] 4.1 g/dL Normal 3.9-4.9 [facility] Comment on above: Order Comment: Speci men Type: BLOOD SPECIMENOrdering Facility: [facility] Address: [address] [place] [address] Performed By: #### 3 016-3, 02060-4, JOSE MARTIN, 25772-3 ####[facility] LABCLIA [id number] [place] [id number] [place] ALP [Catalytic activity/Vol] 50 U/L Normal 34-123 [facility] Comment on above: Order Comment: Speci men Type: BLOOD SPECIMENOrdering Facility: [facility] Address: [address] [place] [address] Performed By: #### 3 016-3, 41952-2, LIPNF, 39500-3 ####[facility]CLIA [id number] [place] [address] [place] ALT [Catalytic activity/Vol] 12 U/L Normal 7-38 [facility] Comment on above: Order Comment: Speci men Type: BLOOD SPECIMENOrdering Facility: [facility] Address: [address] [place] [address] Performed By: #### 3 016-3, 09298-0, LIPNF, 78833-9 ####[facility] LABIA [id number] [place] [address] [place] Anion gap [Moles/Vol] 10 mmol/L Normal 8-15 [facility] Comment on above: Order Comment: Speci men Type: BLOOD SPECIMENOrdering Facility: [facility] Address: [address] [place] [address] Performed By: #### 3 016-3, 97854-1, LIPNF, 60685-3 ####[facility]CLIA [id number] [place] [address] [place] AST [Catalytic activity/Vol] 18 U/L Normal 13-35 [facility] Comment on above: Order Comment: Speci men Type: BLOOD SPECIMENOrdering Facility: [facility] Address: [address] [place] [address] Performed By: #### 3 016-3, 60974-6, LIPNF, 63522-4 ####[facility]CLIA [id number] [place] [address] [place] Bilirubin [Mass/Vol] 0.3 mg/dL Normal 0.2-1.3 [facility] Comment on above: Order Comment: Speci men Type: BLOOD SPECIMENOrdering Facility: [facility] Address: [address] [place] [address] Performed By: #### 3 016-3, 87515-6, LIPNF, ####[facility] LABCLIA [id number] [place] [address] [place] Calcium [Mass/Vol] 9.4 mg/dL Normal 8.5-10.2 [facility] Comment on above: Order Comment: Speci men Type: BLOOD SPECIMENOrdering Facility: [facility] Address: [address] [place] [address] Performed By: #### 3 016-3, 08023-6, LIPNF, ####[facility] LABCLIA [id number] [place] [address] [place] Chloride [Moles/Vol] 104 mmol/L Normal 98-107 [facility] Comment on above: Order Comment: Speci men Type: BLOOD SPECIMENOrdering Facility: [facility] Address: [address] [place] [address] Performed By: #### 3 016-3, 51210-4, LIPNF, ####[facility] LABCLIA [id number] [place] [address] [place] CO2 [Moles/Vol] 25 mmol/L Normal 22-30 [facility] Comment on above: Order Comment: Speci men Type: BLOOD SPECIMENOrdering Facility: [facility] Address: [address] [place] [address] Performed By: #### 3 016-3, 72374-5, LIPNF, ####[facility] LABCLIA [id number] [place] [id number] [address] [place] Creatinine [Mass/Vol] 1.02 mg/dL High 0.58-0.96 [facility] Comment on above: Order Comment: Sabino boogie Type: BLOOD SPECIMENOrdering Facility: [facility] Address: [address] [place] [address] Performed By: #### 3 016-3, 76591-7, JOSE MARTIN, ####[facility] LABCLIA [id number] [place] [address] [place] Creatinine and Glomerular filtration rate.predicted panel (S/P/Bld) 54 mL/min/1.73m??? Low >=60 [facility] Comment on above: Order Comment: Sabino boogie Type: BLOOD SPECIMENOrdering Facility: [facility] Address: [address] [place] [address] Result Comment: Gabriela mated Glomerular Filtration Rate [...] actual GFR. Performed By: #### 3 016-3, 10488-2, JOSE MARTIN, ####[facility] LABCLIA [id number] [place] [address] [place] Glucose [Mass/Vol] 95 mg/dL Normal 74-99 [facility] Comment on above: Order Comment: Sabino boogie Type: BLOOD SPECIMENOrdering Facility: [facility] Address: [address] [place] [address] Result Comment: The [place] Diabetes Association (ADA) provides guidance for cutoff [...] Standards of Medical Care in Diabetes 2016, [place] [employer]. Diabetes Care. 2016.39(Suppl 1). Performed By: #### 3 016-3, 55092-2, LIPNF, ####[facility] LABCLIA [id number] [place] [address] [place] Potassium [Moles/Vol] 5.1 mmol/L Normal 3.7-5.1 [facility] Comment on above: Order Comment: Speci men Type: BLOOD SPECIMENOrdering Facility: [facility] Address: [address] [place] [address] Performed By: #### 3 016-3, 77405-8, LIPNF, ####[facility] LABCLIA [id number] [place] [address] [place] Protein [Mass/Vol] 6.7 g/dL Normal 6.3-8.0 [facility] Comment on above: Order Comment: Speci men Type: BLOOD SPECIMENOrdering Facility: [facility] Address: [address] [place] [address] Performed By: #### 3 016-3, 03858-8, LIPNF, ####[facility] LABCLIA [id number] [place] [address] [place] Sodium [Moles/Vol] 139 mmol/L Normal 136-144 [facility] Comment on above: Order Comment: Speci men Type: BLOOD SPECIMENOrdering Facility: [facility] Address: [address] [place] [address] Performed By: #### 3 016-3, 53125-8, LIPNF, ####[facility] LABCLIA [id number] [place] [id number] [place] Urea nitrogen [Mass/Vol] 24 mg/dL High 7-21 [facility] Comment on above: Order Comment: Sabino boogie Type: BLOOD SPECIMENOrdering Facility: [facility] Address: [address] [place] [address] Performed By: #### 3 016-3, 76723-4, LIPNF, 92374-2 ####[facility] LABCLIA [id number] [place] [address] [place] HbA1c (Bld)on 07-02-2024 Average glucose Estimated from glycated hemoglobin (Bld) [Mass/Vol] 117 mg/dL Normal [facility] Comment on above: Order Comment: [facility] Type: BLOOD SPECIMENOrdering Facility: [facility] Address: [address] [place] [address] Result Comment: eAG: (Estimated average glucose) is a calculated value from HgbA1c and is membership sales representative of the average blood glucose level in the last 2-3 month period. Performed By: #### 5 5454-3 ####[facility] LABIA [id number] [address] [place] OF [facility] HbA1c (Bld) [Mass fraction] 5.7 % High 4.3-5.6 [facility] Comment on above: Order Comment: Sabino boogie Type: BLOOD SPECIMENOrdering Facility: [facility] Address: [address] [place] [address] Result Comment: [place] Diabetes Association guidelines indicate that patients with HgbA1c in the range 5.7-6.4% are at increased risk for development of diabetes, and intervention by lifestyle modification may be beneficial. HgbA1c greater or equal to 6.5% is considered diagnostic of diabetes. Performed By: #### 5 5454-3 ####[facility] LABIA [id number] [place] [address] [place] LIPID PANEL, NONFASTINGon Cholesterol [Mass/Vol] 136 mg/dL Normal <200 [facility] Comment on above: Order Comment: Sabino keagan Type: BLOOD SPECIMENOrdering Facility: [facility] Address: [address] [place] [address] Result Comment: <200 mg/dL, Desirable 200-239 mg/dL, Borderline high >239 mg/dL, High Performed By: #### 3 016-3, 02245-0, LIPNF, 20980-0 ####[facility] LABCLIA [id number] [place] [address] [place] HDL CHOLESTEROL, NF 41 mg/dL Normal >39 [facility] Comment on above: Order Comment: Speci men Type: BLOOD SPECIMENOrdering Facility: [facility] Address: [address] [place] [address] Result Comment: 40-5 9 mg/dL, Acceptable >59 mg/dL, High: Negative risk factor for coronary heart disease <40 mg/dL, Low: Positive risk factor for coronary heart disease Performed By: #### 3 016-3, 16269-2, LIPNF, ####[facility] LABCLIA [id number] [place] [address] [place] LDL CHOLESTEROL, NF 44 mg/dL Normal <100 [facility] Comment on above: Order Comment: Travisi men Type: BLOOD SPECIMENOrdering Facility: [facility] Address: [address] [place] [address] Result Comment: <100 mg/dL, Optimal 100-129 mg/dL, Near optimal/above optimal 130-159 mg/dL, Borderline high 160-189 mg/dL, High >189 mg/dL, Very high Secondary prevention optimal LDL Cholesterol levels are recommended to be < 70 mg/dL Performed By: #### 3 016-3, 43941-7, LIPNF, 99480-9 ####[facility] LABCLIA [id number] [place] [address] [place] LDL/HDL RATIO, NF 1.07 mg/dL Normal <2.54 [facility] Comment on above: Order Comment: Speci men Type: BLOOD SPECIMENOrdering Facility: [facility] Address: [address] [place] [address] Result Comment: Refe radhace: 1. National Cholesterol Education Program ATP III Guideline At-A-Glance Quick Desk Reference: National Heart, Lung, and Blood [place]. National Institutes of Health. 2001: NIH Publication No. 01-3305. 2. An International Atherosclerosis Society position paper: global recommendations for the management of dyslipidemia: executive summary, Atherosclerosis. 2014: 232(2):410-413. Performed By: #### 3 016-3, 06185-9, LIPNF, 39467-9 ####[facility] LABCLIA [id number] [place] [address] [place] NON HDL CHOL, NF 95 mg/dL Normal <130 [facility] Comment on above: Order Comment: Speci men Type: BLOOD SPECIMENOrdering Facility: [facility] Address: [address] [place] [address] Result Comment: <130 mg/dL, Optimal 130-159 mg/dL, Near optimal/above optimal 160-189 mg/dL, Borderline high 190-219 mg/dL, High >219 mg/dL, Very high Secondary prevention optimal non HDL Cholesterol levels are recommended to be <100 mg/dL Performed By: #### 3 016-3, 23490-6, LIPNF, ####[facility] LABCLIA [id number] [address] [place] T CHOL/HDL RATIO NF 3.32 mg/dL Normal <5.10 [facility] Comment on above: Order Comment: Speci men Type: BLOOD SPECIMENOrdering Facility: [facility] Address: [address] [place] [address] Performed By: #### 3 016-3, 02603-2, LIPNF, 99909-1 ####[facility] LABCLIA [id number] [place] [address] [place] TRIGLYCERIDES, NF 256 mg/dL High <150 [facility] Comment on above: Order Comment: Speci men Type: BLOOD SPECIMENOrdering Facility: [facility] Address: [address] [place] [address] Result Comment: <150 mg/dL, Normal 150-199 mg/dL, Borderline high 200-499 mg/dL, High >499 mg/dL, Very high Performed By: #### 3 016-3, 81791-9, LIPJODY, ####[facility] LABCLIA [id number] [place] [address] [place] VLDL CHOLESTEROL, NF 51 mg/dL High <30 [facility] Comment on above: Order Comment: Speci men Type: BLOOD SPECIMENOrdering Facility: [facility] Address: [address] [place] [address] Performed By: #### 3 016-3, , JOSE MARTIN, ####[facility] LABCLIA [id number] [place] [address] [place] Magnesium SerPl-mCncon 07-02 Magnesium [Mass/Vol] 2.1 mg/dL Normal 1.7-2.3 [facility] Comment on above: Order Comment: Speci men Type: BLOOD SPECIMENOrdering Facility: [facility] Address: [address] [place] [address] Performed By: #### 3 016-3, , LIPJODY, ####[facility] LABCLIA [id number] [place] [address] [place] TSH SerPl-aCncon 07-02-2024 TSH Qn 2.080 m[IU]/L Normal 0.270-4.200 [facility] Comment on above: Order Comment: Speci men Type: BLOOD SPECIMENOrdering Facility: [facility] Address: [address] [place] [address] Performed By: #### 3 016-3, 31299-1, LIPJODY, ####[facility] LABCLIA [id number] [place] [address] [place] Urinalysis complete panel (U )on 07-02-2024 Bacteria LM.HPF (Urine sed) [#/Area] Negative Normal Negative [facility] Comment on above: Order Comment: Speci men Type: URINE SPECIMENOrdering Facility: [facility] Address: [address] [place] [address] Performed By: #### 2 4356-8 ####[facility] LABCLIA [id number] [place] [address] [place] Bilirubin Ql (U) Negative Normal Negative [facility] Comment on above: Order Comment: Speci men Type: URINE SPECIMENOrdering Facility: [facility] Address: [address] [place] [address] Performed By: #### 2 4356-8 ####[facility] LABCLIA [id number] [place] [address] [place] Clarity (Unsp spec) Clear Normal Clear [facility] Comment on above: Order Comment: Speci men Type: URINE SPECIMENOrdering Facility: [facility] Address: [address] [place] [address] Performed By: #### 2 4356-8 ####[facility] LABCLIA [id number] [place] [address] [place] Color (U) Yellow Normal Yellow [facility] Comment on above: Order Comment: Speci men Type: URINE SPECIMENOrdering Facility: [facility] Address: [address] [place] [address] Performed By: #### 2 4356-8 ####[facility] LABCLIA [id number] [place] [address] [place] Epithelial cells LM.HPF (Urine sed) [#/Area] Few Normal [facility] Comment on above: Order Comment: Speci men Type: URINE SPECIMENOrdering Facility: [facility] Address: [address] [place] [address] Performed By: #### 2 4356-8 ####[facility] LABCLIA [id number] [place] [address] [place] Glucose Test strip (U) [Mass/Vol] Negative Normal Negative [facility] Comment on above: Order Comment: Speci men Type: URINE SPECIMENOrdering Facility: [facility] Address: [address] [place] [address] Performed By: #### 2 4356-8 ####[facility] LABCLIA [id number] [place] [address] [place] Hemoglobin Ql (U) Negative Normal Negative [facility] Comment on above: Order Comment: Speci men Type: URINE SPECIMENOrdering Facility: [facility] Address: [address] [place] [address] Performed By: #### 2 4356-8 ####[facility] LABCLIA [id number] [place] [address] [place] Hyaline casts (Urine sed) [#/Area] 1-3 /LPF Abnormal 0 /LPF [facility] Comment on above: Order Comment: Speci men Type: URINE SPECIMENOrdering Facility: [facility] Address: [address] [place] [address] Performed By: #### 2 4356-8 ####[facility] LABCLIA [id number] [place] [address] [place] Ketones Ql (U) Negative Normal Negative [facility] Comment on above: Order Comment: Speci men Type: URINE SPECIMENOrdering Facility: [facility] Address: [address] [place] [address] Performed By: #### 2 4356-8 ####[facility] LABCLIA [id number] [place] [address] [place] Leukocyte esterase Test strip Ql (U) 2+ Abnormal Negative [facility] Comment on above: Order Comment: Speci men Type: URINE SPECIMENOrdering Facility: [facility] Address: [address] [place] [address] Performed By: #### 2 4356-8 ####[facility] LABCLIA [id number] [place] [address] [place] Nitrite Ql (U) Negative Normal Negative [facility] Comment on above: Order Comment: Speci men Type: URINE SPECIMENOrdering Facility: [facility] Address: [address] [place] [address] Performed By: #### 2 4356-8 ####[facility] LABCLIA [id number] [place] [address] [place] pH (U) 7.0 [pH] Normal <8.5 [facility] Comment on above: Order Comment: Speci men Type: URINE SPECIMENOrdering Facility: [facility] Address: [address] [place] [address] Performed By: #### 2 4356-8 ####[facility] LABCLIA [id number] [place] [address] [place] Protein (U) [Mass/Vol] Negative Normal Negative [facility] Comment on above: Order Comment: Speci men Type: URINE SPECIMENOrdering Facility: [facility] Address: [address] [place] [address] Performed By: #### 2 4356-8 ####[facility] LABIA [id number] [place] [address] [place] RBC LM.HPF (Urine sed) [#/Area] 0-2 /HPF Normal 0-2 /HPF [facility] Comment on above: Order Comment: Speci men Type: URINE SPECIMENOrdering Facility: [facility] Address: [address] [place] [address] Performed By: #### 2 4356-8 ####[facility] LABCLIA [id number] [place] [address] [place] Specific gravity (U) [Rel density] 1.010 Normal 1.005-1.030 [facility] Comment on above: Order Comment: Speci men Type: URINE SPECIMENOrdering Facility: [facility] Address: [address] [place] [address] Performed By: #### 2 4356-8 ####[facility] LABIA [id number] [place] [id number] [place] Urobilinogen Ql (U) 1.0 EU/dL Normal 0.2-1.0 EU/dL [facility] Comment on above: Order Comment: Speci men Type: URINE SPECIMENOrdering Facility: [facility] Address: [address] [place] [address] Performed By: #### 2 4356-8 ####[facility] LABIA [id number] [place] [id number] [place] WBC LM.HPF (Urine sed) [#/Area] 11-20 /HPF Abnormal 0-5 /HPF [facility] Comment on above: Order Comment: Speci men Type: URINE SPECIMENOrdering Facility: [facility] Address: [address] [place] [address] Performed By: #### 2 4356-8 ####[facility] LABIA [id number] [place] [id number] [place] Vit B12 [facility] 01-24-2 025 Cobalamin (Vitamin B12) [Mass/Vol] 618 pg/mL Normal 232-1245 [facility] Comment on above: Order Comment: Speci men Type: BLOOD SPECIMENOrdering Facility: [facility] Address: [address] [place] [address] Performed By: #### 2 132-9 ####[facility] LABIA [id number] [place] [id number] [place] Gastroenterology Visit Repor ton 03-25-2024 Gastroenterology Visit Report [facility] Gastroenterology [address] [place] [address] OFFICE VISIT Date of Service: 03/25/24 MR#: [id number] Acct: [id number] Name: NIDHI NÚÑEZ Rep #: [id number] : 1940 Provider: Kevon Crum DO Age/Sex: 84/F Location: [facility] Status: Signed Intake Vital Signs 01/29/23 15:17 03/21/24 12:28 Height 5 ft 2 in 5 ft 2 in Intake Visit 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 Normal [facility] Emergency Department Summary on 03-21-2024 Emergency Department Summary [facility] Medical Records Department [address] [place] [address] Emergency Department Summary 03/21/24 MR#: [id number] Acct: [id number] Name: NIDHI NÚÑEZ Rep #: [id number] : 1940 84 From: Phani Alex DO [...] pain. Patient states that she hit her CME alert button and EMS arrived. Patient endorses [...] 15 Psych: Cooperative, appropriate mood and affect [facility] Medical History Acute gastritis without mention of [...] 2 mg PO DAILY 01/29/23 Unknown History ndnqlb-htihpgxa-cclqp se 1 cap PO TID 1 month [...] of HTN (more content not included)... Normal [facility] HIP, UNI W/ Pelvis 2-3 Views on 03-21-2024 HIP, UNI W/ Pelvis 2-3 Views [facility] Imaging Services [address] [place], [place] [address] HIP, UNI W/ Pelvis 2-3 Views MR#: [id number] Acct: [id number] Name: NIDHI NÚÑEZ Shira Rep #: [id number] : 1940 F 84 From: Clay Murphy MD PCP: Dr. Dustin Hoang MD Status: REG ER Study: HIP, UNI W/ Pelvis 2-3 Views Date of Exam: Exam# [id number] Ordering Dr: Phani Alex DO [id number] STUDY: X-RAY - PELVIS AND LEFT HIP [...] Phani Alex DO; Dr. Dustin Hoang MD [employer] Instructor: Signed Normal [facility] Sacrum-Coccyx min 2 Viewson 03-21-2024 Sacrum-Coccyx min 2 Views [facility] Imaging Services [address] [place] [address] Sacrum-Coccyx min 2 Views MR#: [id number] Acct: [id number] Name: NIDHI NÚÑEZ Rep #: [id number] : 1940 F 84 From: Clya Murphy MD PCP: Dr. Dustin Hoang MD Status: REG ER Study: Sacrum-Coccyx min 2 Views Date of Exam: Exam# [id number] Ordering Dr: Phani Alex DO [id number] STUDY: X-RAY - SACRUM/COCCYX REASON FOR EXAM: [...] Phani Alex DO; Dr. Dustin Hoang MD [employer] Instructor: Signed Normal [facility] Hips B/L min 2 views w/ Pelv alda 03-01-2024 Hips B/L min 2 views w/ Pelvis [facility] Imaging Services [address] [place], [place] [address] Hips B/L min 2 views w/ Pelvis MR#: [id number] Acct: [id number] Name: NIDHI NÚÑEZ Rep #: [id number] : 1940 F 83 From: Filiberto key DO PCP: Dr. Dustin Hoang MD Status: REG CLI Study: Hips B/L min 2 views w/ Pelvis Date of Exam: 0 03/01/24 Exam# [id number] Ordering Dr: Dustin Giles MD [id number] EXAM: XR BILATERAL HIPS WITH PELVIS WHEN [...] Dustin Hoang MD; Dr. Dustin Giles MD [employer] Instructor: Signed Normal [facility] Knee 4 or More Viewson 03-01 Knee 4 or More Views [facility] Imaging Services [address] [place], [place] [address] Knee 4 or More Views MR#: [id number] Acct: [id number] Name: NIDHI NÚÑEZ Rep #: [id number] : 1940 F 83 From: Filiberto key DO PCP: Dr. Dustin Hoang MD Status: REG CLI Study: Knee 4 or More Views Date of Exam: 03/01/24 Exam# [id number] Ordering Dr: Dustin Giles MD [id number] EXAM: XR RIGHT KNEE COMPLETE, 4 OR [...] No acute osseous findings. Electronically Signed: Filibertojonatan Florse DO at 21:57 EDT , CC: Dr. Dustin Hoang MD; Dr. Dustin Giles MD [employer] Instructor: Signed Normal [facility] Knee 4 or More Views [facility] Imaging Services [address] [place], [place] [address] Knee 4 or More Views MR#: [id number] Acct: [id number] Name: NIDHI NÚÑEZ Rep #: [id number] : 1940 F 83 From: Filiberto Ganesh key DO PCP: Dr. Dustin Hoang MD Status: [facility] Study: Knee 4 or More Views Date of Exam: 03/01/24 Exam# [id number] Ordering Dr: Dustin Giles MD [id number] EXAM: XR LEFT KNEE COMPLETE, 4 OR [...] Dustin Hoang MD; Dr. Dustin Giles MD [employer] H[employer] Instructor: Signed [facility] 01-09-2024 [facility] Telephone (FAMPWS) NIDHI NÚÑEZ ([id number]) 1940 F Date Time Provider Department 01/09/24 [...] by ALMA DELIA IRVIN on 01/09/24 Normal [facility] Stress Reporton 01-08-2024 Stress Report [facility] Cardiovascular Services [address] [place] [address] MR#: [id number] Acct: [id number] Name: NIDHI NÚÑEZ Rep #: [id number] : 1940 83 From: John Alba MD [...] than 70%. This note was generated with BlueTalon software. It may contain incorrect words, spelling, and punctuation that were not noted in checking the note before signing. 01/08/241528 Date John Alba MD CC: Dr. Dustin Hoang MD Date Dictated: 01/08/241525 Date Transcribed: 01/08/241525 [employer] Instructor: MARI Signed Normal [facility] US CAROTID ARTERIES [facility] 12-31-2023 US CAROTID ARTERIES [facility] Non-Invasive Vascular Laboratory [facility] Carotid Duplex Bilateral/Complete Date of service/time: [...] Subclavian artery: Patent. Technologist: Chyna Martinez RVT, RDGA Ordering physician: DUSTIN HOANG Interpreting physician: TERESA Ricks DO Final CC JRD Communication Medical Image : [id number] micsSISUID See Link below for Image Normal [facility] Tomás 12-16-2023 [facility] Telephone (FAMPWS) NIDHI NÚÑEZ ([id number]) 1940 F Date Time Provider Department 12/16/23 [...] Encounter Status:Closed by JENNY TURNER on 12/16/23 [facility] WILTONNIDHI Shira ([id number]) 1940 F Date Time Provider Department 12/16/23 DUSTIN HOANG [facility] During your visit today, we recorded [...] Status:Closed by ANNIE ZAMORA on 12/17/23 Normal [facility] ECHOon 12-16-2023 Echocardiography Echocardiography Report: Transthoracic Echo [facility] Date of service: 12/16/2023 2:30:33 PM ROOM RN Ordering physician: DUSTIN HOANG Indication: Chest Pain Technologist: Annie Molina [facility] Interpreting physician: Sandy Carmne MD PATIENT: Name: NIDHI NÚÑEZ : 1940 [...] * * * Final * * * JRD Communication Medical Image : [id number] micsSISUID Normal [facility]ET[facility] WITH AMBULATIONon 0 12-16-2023 Braldey Connor RRT 12/16/2023 2:33 PM RESPIRATORY THERAPY [...] Pt does not have a fast pace. [facility] Tomás 12-03-2023 CNPN Telephone (SAHILWS) NIDHI NÚÑEZ ([id number]) 1940 F Date Time Provider Department 12/03/23 CHARLIE BRADLEY During your visit today, we recorded the following information about you: Charlie Bradley MA 12/03/2023 7:35 PM Signed Faxed order/Demo for [facility] Nuclear stress test. Referral placed. Charlie Bradley MA Allergies As of Date: 12/03/2023 Noted Allergy Reaction ADHESIVE TAPE (ROSINS) 02/15/2011 2 - Rash CODEINE 10/09/2006 8 - GI Upset HCTZ (THIAZIDES) 07/25/2022 14 - Other: See Comments Comments: Made dizzy Date Reviewed: 12/01/2023 Reviewed by: Dustin Hoang MD - Fully Assessed Reason for Visit: Appointment [186] Cmt: Nuclear Stress Test - [facility] Prescriptions as of 12/03/2023 - metoprolol [...] Encounter Status:Closed by CHARLIE BRADLEY on 12/03/23 [facility] CNOVon 11-28-2023 CNOV Office Visit (FAMPWS ) NIDHI NÚÑEZ ([id number]) 1940 F Date Time Provider Department 11/28/23 [...] status: Former (more content not included)... Normal [facility] Tomás 11-25-2023 [facility] Telephone (FAMPWS) NIDHI NÚÑEZ ([id number]) 1940 F Date Time Provider Department 11/25/23 [...] Status:Closed by BRUNILDA KINSEY on 11/25/23 [facility] ([id number]) 1940 F Date Time Provider Department 11/25/23 SHAKEEL COLLINS During your visit today, we recorded the following information about you: Shakeel Collins APRN.TRESTLE MAINTERNANCE LABORER 11/25/2023 8:25 AM Signed Please find out if patient is having urinary symptoms. aDyna Osorio RN 11/25/2023 9:06 AM Signed Call [...] Status:Closed by SHAKEEL COLLINS on 11/25/23 Normal [facility] XR Chest PA and Lateralon IMPRESSION: No developing abnormality or acute process [employer] H[employer] R Instructor: GAUTAM Transcribe Date/Time: Nov 25 2023 8:37A Dictated by : CHARLIE FUENTES MD This examination was interpreted and the report reviewed and electronically signed by: CHARLIE FUENTES MD on Nov 25 2023 8:38AM [facility] DIVISION OF RADIOLOGY * * [...] soft tissues: Unremarkable. DIVISION OF RADIOLOGY Provider, [facility] - 11/25/2023 * * *Final [...] IMPRESSION: No developing abnormality or acute process [employer] Hvac R Instructor: GAUTAM Transcribe Date/Time: Nov 25 2023 8:37A Dictated by : CHARLIE FUENTES MD This examination was interpreted and the report reviewed and electronically signed by: CHARLIE FUENTES MD on Nov 25 2023 8:38AM EST [facility] XR Chest PA and LateralOrder ed By: Ccf Provider on 11-25-2023 [facility] CNPNon 11-[facility]-2023 [facility] ([id number]) 1940 F Date Time Provider Department 11/24/23 MAMIE SOTELO [facility] During your visit today, we recorded [...] Status:Closed by MARITZA PENNINGTON on 11/24/23 Normal [facility] CT BRAIN WO IVCONon 11-24-19 CT BRAIN WO IVCON * * *Final Report* * * DATE OF EXAM: Nov 24 2023 9:21AM [facility] 0504 - CT BRAIN WO IVCON / [...] base and imaged soft tissues are unremarkable. X Ray Service Engineer (topogram) images: Noncontributory IMPRESSION: No acute intracranial abnormality. High School Hvac R Instructor: [facility] Transcribe Date/Time: Nov 24 2023 10:55A Dictated by : DANIEL JAUREGUI MD This examination was interpreted and the report reviewed and electronically signed by: DANIEL JAUREGUI MD on Nov 24 2023 10:59AM EST [id number] Normal [facility] CT Head WO contraston 2023 IMPRESSION: No acute intracranial abnormality. [employer] Hvac R Instructor: [facility] Transcribe Date/Time: Nov 24 2023 10:55A Dictated by : DANIEL JAUREGUI MD This examination was interpreted and the report reviewed and electronically signed by: DANIEL JAUREGUI MD on Nov 24 2023 10:59AM EST DIVISION OF RADIOLOGY * * *Final Report* * * DATE OF EXAM: Nov 24 2023 9:21AM [facility] 0504 - CT BRAIN WO IVCON / [...] base and imaged soft tissues are unremarkable. X Ray Service Engineer (topogram) images: Noncontributory DIVISION OF RADIOLOGY Provider, [facility] - 11/24/2023 * * *Final Report* * * DATE OF EXAM: Nov 24 2023 9:21AM [facility] 0504 - CT BRAIN WO IVCON / [...] base and imaged soft tissues are unremarkable. X Ray Service Engineer (topogram) images: Noncontributory IMPRESSION IMPRESSION: No acute intracranial abnormality. [employer] Hvac R Instructor: [employer] Transcribe Date/Time: Nov 24 2023 10:55A Dictated by : DANIEL JAUREGUI MD This examination was interpreted and the report reviewed and electronically signed by: DANIEL JAUREGUI MD on Nov 24 2023 10:59AM EST [facility] Radiology Study observation (narrative) [facility] CT Head WO contrastOrdered B y: Ccf Provider on 11-24-2023 [facility] Urinalysis complete panel (U )on 11-24-2023 Bacteria LM.HPF (Urine sed) [#/Area] Negative Normal Negative [facility] Comment on above: Order Comment: Speci men Type: URINE SPECIMENOrdering Facility: [facility] Address: [address] [place] [address] Performed By: #### 2 4356-8 ####[facility] LABCLIA [id number] [place] [address] [place] Bilirubin Ql (U) Negative Normal Negative [facility] Comment on above: Order Comment: Speci men Type: URINE SPECIMENOrdering Facility: [facility] Address: [address] [place] [address] Performed By: #### 2 4356-8 ####[facility] LABCLIA [id number] [place] [address] [place] Clarity (Unsp spec) Clear Normal Clear [facility] Comment on above: Order Comment: Speci men Type: URINE SPECIMENOrdering Facility: [facility] Address: [address] [place] [address] Performed By: #### 2 4356-8 ####[facility] LABCLIA [id number] [place] [address] [place] Color (U) Yellow Normal Yellow [facility] Comment on above: Order Comment: Speci men Type: URINE SPECIMENOrdering Facility: [facility] Address: [address] [place] [address] Performed By: #### 2 4356-8 ####[facility] LABCLIA [id number] [address] [place] Epithelial cells LM.HPF (Urine sed) [#/Area] Moderate Normal [facility] Comment on above: Order Comment: Speci men Type: URINE SPECIMENOrdering Facility: [facility] Address: [address] [place] [address] Performed By: #### 2 4356-8 ####[facility] LABCLIA [id number] [address] [place] Glucose Test strip (U) [Mass/Vol] Negative Normal Negative [facility] Comment on above: Order Comment: Speci men Type: URINE SPECIMENOrdering Facility: [facility] Address: [address] [place] [address] Performed By: #### 2 4356-8 ####[facility] LABCLIA [id number] [place] [address] [place] Hemoglobin Ql (U) Negative Normal Negative [facility] Comment on above: Order Comment: Speci men Type: URINE SPECIMENOrdering Facility: [facility] Address: [address] [place] [address] Performed By: #### 2 4356-8 ####[facility] LABCLIA [id number] [place] [address] [place] Hyaline casts (Urine sed) [#/Area] 0 /[LPF] Normal 0 /LPF [facility] Comment on above: Order Comment: Speci men Type: URINE SPECIMENOrdering Facility: [facility] Address: [address] [place] [address] Performed By: #### 2 4356-8 ####[facility] LABCLIA [id number] [place] [address] [place] Ketones Ql (U) Negative Normal Negative [facility] Comment on above: Order Comment: Speci men Type: URINE SPECIMENOrdering Facility: [facility] Address: [address] [place] [address] Performed By: #### 2 4356-8 ####[facility] LABCLIA [id number] [place] [address] [place] Leukocyte esterase Test strip Ql (U) 2+ Abnormal Negative [facility] Comment on above: Order Comment: Speci men Type: URINE SPECIMENOrdering Facility: [facility] Address: [address] [place] [address] Performed By: #### 2 4356-8 ####[facility] LABCLIA [id number] [place] [address] [place] Nitrite Ql (U) Negative Normal Negative [facility] Comment on above: Order Comment: Speci men Type: URINE SPECIMENOrdering Facility: [facility] Address: [address] [place] [address] Performed By: #### 2 4356-8 ####[facility] LABCLIA [id number] [place] [address] [place] pH (U) 6.0 [pH] Normal <8.5 [facility] Comment on above: Order Comment: Speci men Type: URINE SPECIMENOrdering Facility: [facility] Address: [address] [place] [address] Performed By: #### 2 4356-8 ####[facility] LABCLIA [id number] [place] [address] [place] Protein (U) [Mass/Vol] Negative Normal Negative [facility] Comment on above: Order Comment: Speci men Type: URINE SPECIMENOrdering Facility: [facility] Address: [address] [place] [address] Performed By: #### 2 4356-8 ####[facility] LABCLIA [id number] [place] [address] [place] RBC LM.HPF (Urine sed) [#/Area] 0-2 /HPF Normal 0-2 /HPF [facility] Comment on above: Order Comment: Speci men Type: URINE SPECIMENOrdering Facility: [facility] Address: [address] [place] [address] Performed By: #### 2 4356-8 ####[facility] LABCLIA [id number] [place] [address] [place] Specific gravity (U) [Rel density] 1.011 Normal 1.005-1.030 [facility] Comment on above: Order Comment: Speci men Type: URINE SPECIMENOrdering Facility: [facility] Address: [address] [place] [address] Performed By: #### 2 4356-8 ####[facility] LABCLIA [id number] [place] [address] [place] Urobilinogen Ql (U) 0.2 EU/dL Normal 0.2-1.0 EU/dL [facility] Comment on above: Order Comment: Speci men Type: URINE SPECIMENOrdering Facility: [facility] Address: [address] [place] [address] Performed By: #### 2 4356-8 ####[facility] LABCLIA [id number] [place] [address] [place] WBC LM.HPF (Urine sed) [#/Area] 11-20 /HPF Abnormal 0-5 /HPF [facility] Comment on above: Order Comment: Speci men Type: URINE SPECIMENOrdering Facility: [facility] Address: [address] [place] [address] Performed By: #### 2 4356-8 ####[facility] LABCLIA [id number] [place] [address] [place] CBC W Auto Differential pane l (Bld)on 11-21-2023 Basophils (Bld) [#/Vol] 0.03 10*3/uL Normal <0.11 [facility] Comment on above: Order Comment: Speci men Type: BLOOD SPECIMENOrdering Facility: [facility] Address: [address] [place] [address] Performed By: #### 5 7021-8 ####[facility] LABCLIA [id number] [place] [address] [place] Basophils/100 WBC (Bld) 0.4 % Normal [facility] Comment on above: Order Comment: Speci men Type: BLOOD SPECIMENOrdering Facility: [facility] Address: [address] [place] [address] Performed By: #### 5 7021-8 ####[facility] LABCLIA [id number] [place] [address] [place] Differential cell count method Nom (Bld) Auto Normal [facility] Comment on above: Order Comment: Speci men Type: BLOOD SPECIMENOrdering Facility: [facility] Address: [address] [place] [address] Performed By: #### 5 7021-8 ####[facility] LABCLIA [id number] [place] [address] [place] Eosinophils (Bld) [#/Vol] 0.32 10*3/uL Normal <0.46 [facility] Comment on above: Order Comment: Speci men Type: BLOOD SPECIMENOrdering Facility: [facility] Address: [address] [place] [address] Performed By: #### 5 7021-8 ####[facility] LABCLIA [id number] [place] [address] [place] Eosinophils/100 WBC (Bld) 4.6 % Normal [facility] Comment on above: Order Comment: Speci men Type: BLOOD SPECIMENOrdering Facility: [facility] Address: [address] [place] [address] Performed By: #### 5 7021-8 ####[facility] LABCLIA [id number] [place] [address] [place] Erythrocyte distribution width (RBC) [Ratio] 13.4 % Normal 11.5-15.0 [facility] Comment on above: Order Comment: Speci men Type: BLOOD SPECIMENOrdering Facility: [facility] Address: [address] [place] [address] Performed By: #### 5 7021-8 ####[facility] LABIA [id number] [place] [address] [place] Hematocrit (Bld) [Volume fraction] 39.0 % Normal 36.0-46.0 [facility] Comment on above: Order Comment: Speci men Type: BLOOD SPECIMENOrdering Facility: [facility] Address: [address] [place] [address] Performed By: #### 5 7021-8 ####[facility] LABIA [id number] [place] [address] [place] Hemoglobin (Bld) [Mass/Vol] 12.4 g/dL Normal 11.5-15. 5 [facility] Comment on above: Order Comment: Speci men Type: BLOOD SPECIMENOrdering Facility: [facility] Address: [address] [place] [address] Performed By: #### 5 7021-8 ####[facility] LABIA [id number] [place] [address] [place] Immature granulocytes (Bld) [#/Vol] 0.03 10*3/uL Normal <0.10 [facility] Comment on above: Order Comment: Speci men Type: BLOOD SPECIMENOrdering Facility: [facility] Address: [address] [place] [address] Performed By: #### 5 7021-8 ####[facility] LABCLIA [id number] [place] [address] [place] Immature granulocytes/100 WBC (Bld) 0.4 % Normal [facility] Comment on above: Order Comment: Speci men Type: BLOOD SPECIMENOrdering Facility: [facility] Address: [address] [place] [address] Performed By: #### 5 7021-8 ####[facility] LABCLIA [id number] [place] [address] [place] Lymphocytes (Bld) [#/Vol] 1.89 10*3/uL Normal 1.00-4.0 0 [facility] Comment on above: Order Comment: Speci men Type: BLOOD SPECIMENOrdering Facility: [facility] Address: [address] [place] [address] Performed By: #### 5 7021-8 ####[facility] LABCLIA [id number] [place] [address] [place] Lymphocytes/100 WBC (Bld) 27.3 % Normal [facility] Comment on above: Order Comment: Speci men Type: BLOOD SPECIMENOrdering Facility: [facility] Address: [address] [place] [address] Performed By: #### 5 7021-8 ####[facility] LABCLIA [id number] [place] [address] [place] MCH (RBC) [Entitic mass] 27.6 pg Normal 26.0-34.0 [facility] Comment on above: Order Comment: Speci men Type: BLOOD SPECIMENOrdering Facility: [facility] Address: [address] [place] [address] Performed By: #### 5 7021-8 ####[facility] LABCLIA [id number] [place] [address] [place] MCHC (RBC) [Mass/Vol] 31.8 g/dL Normal 30.5-36.0 [facility] Comment on above: Order Comment: Speci men Type: BLOOD SPECIMENOrdering Facility: [facility] Address: [address] [place] [address] Performed By: #### 5 7021-8 ####[facility] LABCLIA [id number] [place] [address] [place] MCV (RBC) [Entitic vol] 86.7 fL Normal 80.0-100.0 [facility] Comment on above: Order Comment: Speci men Type: BLOOD SPECIMENOrdering Facility: [facility] Address: [address] [place] [address] Performed By: #### 5 7021-8 ####[facility] LABIA [id number] [place] [address] [place] Monocytes (Bld) [#/Vol] 0.64 10*3/uL Normal <0.87 [facility] Comment on above: Order Comment: Speci men Type: BLOOD SPECIMENOrdering Facility: [facility] Address: [address] [place] [address] Performed By: #### 5 7021-8 ####[facility] LABIA [id number] [place] [address] [place] Monocytes/100 WBC (Bld) 9.2 % Normal [facility] Comment on above: Order Comment: Speci men Type: BLOOD SPECIMENOrdering Facility: [facility] Address: [address] [place] [address] Performed By: #### 5 7021-8 ####[facility] LABIA [id number] [place] [address] [place] Neutrophils (Bld) [#/Vol] 4.01 10*3/uL Normal 1.45-7.5 0 [facility] Comment on above: Order Comment: Speci men Type: BLOOD SPECIMENOrdering Facility: [facility] Address: [address] [place] [address] Performed By: #### 5 7021-8 ####[facility] LABCLIA [id number] [place] [address] [place] Neutrophils/100 WBC (Bld) 58.1 % Normal [facility] Comment on above: Order Comment: Speci men Type: BLOOD SPECIMENOrdering Facility: [facility] Address: [address] [place] [address] Performed By: #### 5 7021-8 ####[facility] LABCLIA [id number] [place] [address] [place] Nucleated RBC (Bld) [#/Vol] 10*3/uL Normal <0.01 [facility] Comment on above: Order Comment: Speci men Type: BLOOD SPECIMENOrdering Facility: [facility] Address: [address] [place] [address] Performed By: #### 5 7021-8 ####[facility] LABCLIA [id number] [place] [address] [place] Nucleated RBC/100 WBC (Bld) [Ratio] 0.0 /100 WBC Normal [facility] Comment on above: Order Comment: Speci men Type: BLOOD SPECIMENOrdering Facility: [facility] Address: [address] [place] [address] Performed By: #### 5 7021-8 ####[facility] LABCLIA [id number] [place] [address] [place] Platelet mean volume (Bld) [Entitic vol] 10.9 fL Normal 9.0-12.7 [facility] Comment on above: Order Comment: Speci men Type: BLOOD SPECIMENOrdering Facility: [facility] Address: [address] [place] [address] Performed By: #### 5 7021-8 ####[facility] LABIA [id number] [place] [address] [place] Platelets (Bld) [#/Vol] 218 10*3/uL Normal 150-400 [facility] Comment on above: Order Comment: Speci men Type: BLOOD SPECIMENOrdering Facility: [facility] Address: [address] [place] [address] Performed By: #### 5 7021-8 ####[facility] LABIA [id number] [place] [address] [place] RBC (Bld) [#/Vol] 4.50 10*6/uL Normal 3.90-5.20 [facility] Comment on above: Order Comment: Speci men Type: BLOOD SPECIMENOrdering Facility: [facility] Address: [address] [place] [address] Performed By: #### 5 7021-8 ####[facility] LABIA [id number] [place] [address] [place] [facility] [place] WBC (Bld) [#/Vol] 6.92 10*3/uL Normal 3.70-11.00 [facility] Comment on above: Order Comment: Speci men Type: BLOOD SPECIMENOrdering Facility: [facility] Address: [address] [place] [address] Performed By: #### 5 7021-8 ####[facility] LABIA [id number] [address] [place] CNOVon 11-21-2023 CNOV Office Visit (FAMPWS ) NIDHI NÚÑEZ ([id number]) 1940 F Date Time Provider Department 11/21/23 [...] and go (more content not included)... Normal [facility] Comprehensive metabolic 2000 panelon 11-21-2023 Albumin [Mass/Vol] 4.3 g/dL Normal 3.9-4.9 [facility] Comment on above: Order Comment: Speci men Type: BLOOD SPECIMENOrdering Facility: [facility] Address: [address] [place] [address] Performed By: #### 2 132-9, 3016-3, 40413-3, 86292-1 ####[facility] [id number] [place] [address] [place] ALP [Catalytic activity/Vol] 56 U/L Normal 34-123 [facility] Comment on above: Order Comment: Speci men Type: BLOOD SPECIMENOrdering Facility: [facility] Address: [address] [place] [address] Performed By: #### 2 132-9, 3016-3, 46759-0, 39717-9 ####[facility] LABIA [id number] [place] [id number] [place] ALT [Catalytic activity/Vol] 11 U/L Normal 7-38 [facility] Comment on above: Order Comment: Speci men Type: BLOOD SPECIMENOrdering Facility: [facility] Address: [address] [place] [address] Performed By: #### 2 132-9, 3016-3, 78672-8, 28343-9 ####[facility] LABCLIA [id number] [address] [address] [place] Anion gap [Moles/Vol] 10 mmol/L Normal 8-15 [facility] Comment on above: Order Comment: Speci men Type: BLOOD SPECIMENOrdering Facility: [facility] Address: [address] [place] [address] Performed By: #### 2 132-9, 3016-3, 00386-9, 98481-2 ####[facility] LABCLIA [id number] [address] [address] [place] AST [Catalytic activity/Vol] 20 U/L Normal 13-35 [facility] Comment on above: Order Comment: Speci men Type: BLOOD SPECIMENOrdering Facility: [facility] Address: [address] [place] [address] Performed By: #### 2 132-9, 3016-3, 96313-5, 92208-3 ####[facility] LABCLIA [id number] [address] [address] [place] Bilirubin [Mass/Vol] 0.5 mg/dL Normal 0.2-1.3 [facility] Comment on above: Order Comment: Speci men Type: BLOOD SPECIMENOrdering Facility: [facility] Address: [address] [place] [address] Performed By: #### 2 132-9, 3016-3, 64621-4, 15171-3 ####[facility] LABCLIA [id number] [address] [address] [place] Calcium [Mass/Vol] 9.9 mg/dL Normal 8.5-10.2 [facility] Comment on above: Order Comment: Speci men Type: BLOOD SPECIMENOrdering Facility: [facility] Address: [address] [place] [address] Performed By: #### 2 132-9, 3016-3, 08792-4, 21762-0 ####[facility] LABCLIA [id number] [address] [address] [place] Chloride [Moles/Vol] 104 mmol/L Normal 98-107 [facility] Comment on above: Order Comment: Speci men Type: BLOOD SPECIMENOrdering Facility: [facility] Address: [address] [place] [address] Performed By: #### 2 132-9, 3016-3, 79451-0, 32953-4 ####[facility] LABCLIA [id number] [place] [address] [place] CO2 [Moles/Vol] 26 mmol/L Normal 22-30 [facility] Comment on above: Order Comment: Speci men Type: BLOOD SPECIMENOrdering Facility: [facility] Address: [address] [place] [address] Performed By: #### 2 132-9, 3016-3, 41454-0, 83203-5 ####[facility] LABCLIA [id number] [place] [address] [place] Creatinine [Mass/Vol] 1.07 mg/dL High 0.58-0.96 [facility] Comment on above: Order Comment: Speci men Type: BLOOD SPECIMENOrdering Facility: [facility] Address: [address] [place] [address] Performed By: #### 2 132-9, 3016-3, 11580-5, 96475-9 ####[facility] LABIA [id number] [place] [address] [place] Creatinine and Glomerular filtration rate.predicted panel (S/P/Bld) 51 mL/min/1.73m??? Low >=60 [facility] Comment on above: Order Comment: Speci men Type: BLOOD SPECIMENOrdering Facility: [facility] Address: [address] [place] [address] Result Comment: Gabriela mated Glomerular Filtration Rate [...] GFR. Performed By: #### 2 132-9, 3016-3, 26596-4, 88766-8 ####[facility] LABCLIA [id number] [address] [address] [place] Glucose [Mass/Vol] 101 mg/dL High 74-99 [facility] Comment on above: Order Comment: Sabino boogie Type: BLOOD SPECIMENOrdering Facility: [facility] Address: [address] [place] [address] Result Comment: The [place] Diabetes Association (ADA) provides guidance for cutoff [...] Standards of Medical Care in Diabetes 2016, [place] [employer]. Diabetes Care. 2016.39(Suppl 1). Performed By: #### 2 132-9, 3016-3, 24025-6, 13702-2 ####[facility] LABCLIA [id number] [address] [address] [place] Potassium [Moles/Vol] 4.7 mmol/L Normal 3.7-5.1 [facility] Comment on above: Order Comment: Sabino boogie Type: BLOOD SPECIMENOrdering Facility: [facility] Address: [address] [place] [address] Performed By: #### 2 132-9, 3016-3, 80358-4, 47995-4 ####[facility] LABCLIA [id number] [address] [address] [place] Protein [Mass/Vol] 7.0 g/dL Normal 6.3-8.0 [facility] Comment on above: Order Comment: Speci men Type: BLOOD SPECIMENOrdering Facility: [facility] Address: [address] [place] [address] Performed By: #### 2 132-9, 3016-3, 82222-3, 38989-4 ####[facility] LABIA [id number] [place] [address] [place] Sodium [Moles/Vol] 140 mmol/L Normal 136-144 [facility] Comment on above: Order Comment: Speci men Type: BLOOD SPECIMENOrdering Facility: [facility] Address: [address] [place] [address] Performed By: #### 2 132-9, 3016-3, 05491-4, 28699-6 ####[facility] [id number] [place] [id number] [place] Urea nitrogen [Mass/Vol] 24 mg/dL High 7-21 [facility] Comment on above: Order Comment: Speci men Type: BLOOD SPECIMENOrdering Facility: [facility] Address: [address] [place] [address] Performed By: #### 2 132-9, 3016-3, 90562-2, 02876-1 ####[facility] LABIA [id number] [address] [address] [place] ECG COMPLETEon 11-21-2023 Atrial Rate 56 BPM [facility] Calculated P [place] -8 degrees [facility] Calculated R [place] -17 degrees [facility] Calculated T [place] 95 degrees [facility] P-R Interval 180 ms [facility] QRS Duration 90 ms [facility] QT Interval 466 ms [facility] QTC Calculation (Bazett) 449 ms [facility] Ventricular Rate 56 BPM [facility] SINUS BRADYCARDIA MINIMAL VOLTAGE CRITERIA FOR LVH, MAY BE NORMAL VARIANT ANTEROLATERAL T WAVE ABNORMALITY ABNORMAL ECG Confirmed by DUSTIN THAKKAR M.D. ([id number]) on 11/21/2023 4:11:55 PM [facility] NAME : NIDHI NÚÑEZ PID : [id number] : 1940 Gender : Female Race : ORD : [id number] Procedure Date : Nov 21 2023 12:18:04 [...] : CHARLIE [facility], [facility] ECG COMPLETE Ventricular Rate : 5 6 BPM Atrial Rate : 56 BPM P-R Interval : 180 ms QRS Duration : 90 ms Q-T Interval : 466 ms QTC Calculation(Bazett) : 449 ms Calculated P [place] : -8 degrees Calculated R [place] : -17 degrees Calculated T [place] : 95 degrees SINUS BRADYCARDIA MINIMAL VOLTAGE CRITERIA FOR LVH, MAY BE NORMAL VARIANT ANTEROLATERAL T WAVE ABNORMALITY ABNORMAL ECG Confirmed by DUSTIN THAKKAR M.D. ([id number]) on 11/21/2023 4:11:55 PM NAME : NIDHI NÚÑEZ PID : [id number] : 1940 Gender : Female Race : ORD : [id number] Procedure Date : Nov 21 2023 12:18:04 [...] HOANG MD Acquired by : CHARLIE BRADLEY, [facility] HbA1c (Bld)on 11-21-2023 Average glucose Estimated from glycated hemoglobin (Bld) [Mass/Vol] 111 mg/dL Normal [facility] Comment on above: Order Comment: Sabino boogie Type: BLOOD SPECIMENOrdering Facility: [facility] Address: [address] [place] [address] Result Comment: eAG: (Estimated average glucose) is a calculated value from HgbA1c and is membership sales representative of the average blood glucose level in the last 2-3 month period. Performed By: #### 5 5454-3 ####[facility] LABCLIA [id number] [place] [address] [place] HbA1c (Bld) [Mass fraction] 5.5 % Normal 4.3-5.6 [facility] Comment on above: Order Comment: Sabino boogie Type: BLOOD SPECIMENOrdering Facility: [facility] Address: [address] [place] [address] Result Comment: [place] Diabetes Association guidelines indicate that patients with HgbA1c in the range 5.7-6.4% are at increased risk for development of diabetes, and intervention by lifestyle modification may be beneficial. HgbA1c greater or equal to 6.5% is considered diagnostic of diabetes. Performed By: #### 5 5454-3 ####[facility] LABCLIA [id number] [place] [address] [place] Lipid 1996 panelon Cholesterol [Mass/Vol] 144 mg/dL Normal <200 [facility] Comment on above: Order Comment: Sabino boogie Type: BLOOD SPECIMENOrdering Facility: [facility] Address: [address] [place] [address] Result Comment: <200 mg/dL, Desirable 200-239 mg/dL, Borderline high >239 mg/dL, High Performed By: #### 2 132-9, 3016-3, 26684-2, 30209-3 ####[facility] LABCLIA [id number] [place] [address] [place] Cholesterol in HDL [Mass/Vol] 50 mg/dL Normal >39 [facility] Comment on above: Order Comment: Travisjess boogie Type: BLOOD SPECIMENOrdering Facility: [facility] Address: [address] [place] [address] Result Comment: 40-5 9 mg/dL, Acceptable >59 mg/dL, High: Negative risk factor for coronary heart disease <40 mg/dL, Low: Positive risk factor for coronary heart disease Performed By: #### 2 132-9, 3016-3, 74438-9, 11302-0 ####[facility] LABCLIA [id number] [place] [address] [place] Cholesterol in LDL [Mass/Vol] 58 mg/dL Normal <100 [facility] Comment on above: Order Comment: Sabino keagan Type: BLOOD SPECIMENOrdering Facility: [facility] Address: [address] [place] [address] Result Comment: <100 mg/dL, Optimal 100-129 mg/dL, Near optimal/above optimal 130-159 mg/dL, Borderline high 160-189 mg/dL, High >189 mg/dL, Very high Secondary prevention optimal LDL Cholesterol levels are recommended to be < 70 mg/dL Performed By: #### 2 132-9, 3016-3, 13320-0, 51365-9 ####[facility] LABCLIA [id number] [place] [address] [place] Cholesterol in LDL/Cholesterol in HDL [Mass ratio] 1.16 {ratio} Normal <2.54 [facility] Comment on above: Order Comment: Sabino boogie Type: BLOOD SPECIMENOrdering Facility: [facility] Address: [address] [place] [address] Result Comment: Refe radhace: 1. National Cholesterol Education Program ATP III Guideline At-A-Glance Quick Desk Reference: National Heart, Lung, and Blood [place]. National Institutes of Health. 2001: NIH Publication No. 01-3305. 2. An International Atherosclerosis Society position paper: global recommendations for the management of dyslipidemia: executive summary, Atherosclerosis. 2014: 232(2):410-413. Performed By: #### 2 132-9, 3016-3, 82308-9, 84464-2 ####[facility] LABCLIA [id number] [address] [address] [place] Cholesterol in VLDL [Mass/Vol] 36 mg/dL High <30 [facility] Comment on above: Order Comment: Speci men Type: BLOOD SPECIMENOrdering Facility: [facility] Address: [address] [place] [address] Performed By: #### 2 132-9, 3016-3, 67159-7, 29931-8 ####[facility] LABCLIA [id number] [place] [address] [place] Cholesterol non HDL [Mass/Vol] 94 mg/dL Normal <130 [facility] Comment on above: Order Comment: Speci men Type: BLOOD SPECIMENOrdering Facility: [facility] Address: [address] [place] [address] Result Comment: <130 mg/dL, Optimal 130-159 mg/dL, Near optimal/above optimal 160-189 mg/dL, Borderline high 190-219 mg/dL, High >219 mg/dL, Very high Secondary prevention optimal non HDL Cholesterol levels are recommended to be <100 mg/dL Performed By: #### 2 132-9, 3016-3, 67451-9, 88326-5 ####[facility] LABCLIA [id number] [place] [address] [place] Cholesterol.total/Cholester ol in HDL [Mass ratio] 2.88 {ratio} Normal <5.10 [facility] Comment on above: Order Comment: Speci men Type: BLOOD SPECIMENOrdering Facility: [facility] Address: [address] [place] [address] Performed By: #### 2 132-9, 3016-3, 41651-1, 21130-0 ####[facility] LABCLIA [id number] [address] [address] [place] FASTING TIME 15 hrs Normal [facility] Comment on above: Order Comment: Speci men Type: BLOOD SPECIMENOrdering Facility: [facility] Address: [address] [place] [address] Performed By: #### 2 132-9, 3016-3, 42261-7, 50384-4 ####[facility] LABCLIA [id number] [place] [address] [place] Triglyceride [Mass/Vol] 181 mg/dL High <150 [facility] Comment on above: Order Comment: Speci men Type: BLOOD SPECIMENOrdering Facility: [facility] Address: [address] [place] [address] Result Comment: <150 mg/dL, Normal 150-199 mg/dL, Borderline high 200-499 mg/dL, High >499 mg/dL, Very high Performed By: #### 2 132-9, 3016-3, 91120-4, 65659-8 ####[facility] LABCLIA [id number] [place] [address] [place] THYROID STIMULATING HORMONEo n 11-21-2023 TSH Qn 2.370 m[IU]/L [facility] TSH Qnon 11-21-2023 Interpretation and review of laboratory results Normal [facility] TSH SerPl-aCncon 11-21-2023 TSH Qn 2.370 m[IU]/L Normal 0.270-4.200 [facility] Comment on above: Order Comment: Speci men Type: BLOOD SPECIMENOrdering Facility: [facility] Address: [address] [place] [address] Performed By: #### 2 132-9, 3016-3, 44872-6, 68341-9 ####[facility] LABCLIA [id number] [place] [address] [place] Vit B12 SerPl-mCncon 024 Cobalamin (Vitamin B12) [Mass/Vol] 481 pg/mL Normal 232-1245 [facility] Comment on above: Order Comment: Speci men Type: BLOOD SPECIMENOrdering Facility: [facility] Address: [address] [id number] Performed By: #### 2 132-9, 3016-3, 12588-1, 17030-5 ####[facility] LABCLIA [id number] [address] [id number] [id number] [place] XR CHEST 2V [...] IMPRESSION: No developing abnormality or acute process [employer] Instructor: GAUTAM Transcribe Date/Time: Nov 25 2023 8:37A Dictated by : CHARLIE FUENTES MD This examination was interpreted and the report reviewed and electronically signed by: CHARLIE FUENTES MD on Nov 25 2023 8:38AM EST [id number] N Normal [facility] XR Chest PA and Lateralon Radiology Study observation (narrative) [facility] Gastroenterology Visit Repor ton 10-01-2023 Gastroenterology Visit Report [facility] Gastroenterology [address] [place] [address] OFFICE VISIT Date of Service: 10/01/23 MR#: [id number] Acct: [id number] Name: NIDHI NÚÑEZ Rep #: [id number] : 1940 Provider: Kevon Crum DO Age/Sex: [...] itchy eyes (more content not included)... Normal [facility] HSV+VZV DNA SHIRAZ+probe Ql (Un sp spec)on 04-22-2023 HSV 1 DNA SHIRAZ+probe Ql (Unsp spec) Not detected Not Detected [facility] HSV 2 DNA SHIRAZ+probe Ql (Unsp spec) Not detected Not Detected [facility] VZV DNA SHIRAZ+probe Ql (Unsp spec) Not detected Not Detected [facility] XR CHEST 2V FRONTAL/LATon [facility] XR Chest PA and Lateralon IMPRESSION: Small patchy density in the mid right lung which may represent atelectasis. Infection is not excluded. [employer] In[employer]: GAUTAM Transcribe Date/Time: Apr 21 2023 1:47P Dictated by : DANIEL CHAVEZ MD This examination was interpreted and the report reviewed and electronically signed by: DANIEL CHAVEZ MD on Apr 21 2023 1:59PM [facility] DIVISION OF RADIOLOGY * * [...] the thoracic spine. DIVISION OF RADIOLOGY Provider, [facility] - 04/21/2023 * * *Final [...] may represent atelectasis. Infection is not excluded. [employer] Instructor: GAUTAM Transcribe Date/Time: Apr 21 2023 1:47P Dictated by : DANIEL CHAVEZ MD This examination was interpreted and the report reviewed and electronically signed by: DANIEL CHAVEZ MD on Apr 21 2023 1:59PM EST [facility] Radiology Study observation (narrative) [facility] XR Chest PA and LateralOrder ed By: Ccf Provider on 04-21-2023 [facility] Absolute lymphocyte countOrd ered By: Flynn Castillo on 01-29-2023 Lymphocytes Auto (Unsp spec) [#/Vol] 1.74 10*3/uL 0.83-4.51 [facility] Basophil percentageOrdered B y: Flynn Castillo on 01-29-2023 Basophils/100 WBC (Bld) 0.3 % 0-1 [facility] Chloride [Moles/Vol] 102 mmol/L 98-107 [facility] Eosinophils/100 WBC (Bld) 2.4 % 0-5 [facility] Glucose [Mass/Vol] 113 mg/dL 74-106 [place] Comment on above: Fasting Glucose resu lt from 100 to 125 mg/dL suggests IMPAIRED HOMEOSTASIS per A.D.A. criteria. Neutrophils (Bld) [#/Vol] 6.3 10*3/uL 2.0-7.7 [facility] Neutrophils/100 WBC (Bld) 68.3 % 47-70 [facility] Potassium [Moles/Vol] 4.6 mmol/L 3.5-5.1 [facility] Sodium [Moles/Vol] 137 mmol/L 136-145 [place] WBC (Bld) [#/Vol] 9.2 10*3/uL 4.4-11.0 [place] Blood erythrocytes count (nu mber/volume)Ordered By: Flynn Castillo on 01-29-2023 RBC (Bld) [#/Vol] 4.80 10*6/uL 4.2-5.4 [facility] Blood hemoglobin measurement (mass/volume)Ordered By: Flynn Castillo on 01-29-2023 Hemoglobin (Bld) [Mass/Vol] 13.9 g/dL 12.0-15. 0 [facility] Blood lymphocytes/100 leukoc ytesOrdered By: Flynn Castillo on 01-29-2023 Lymphocytes/100 WBC (Bld) 18.9 % 19-41 [facility] Blood monocytes/100 leukocyt esOrdered By: Flynn Castillo on 01-29-2023 Monocytes/100 WBC (Bld) 8.6 % 0-10 [facility] Blood platelet mean volumeOr dered By: Flynn Castillo on 01-29-2023 Platelet mean volume (Bld) [Entitic vol] 10.3 fL 6.2-12.0 [facility] Determination of erythrocyte mean corpuscular volume (MCV)Ordered By: Flynn Castillo on 01-29-2023 MCV (RBC) [Entitic vol] 88.1 fL 81-99 [facility] Hematocrit Auto (Bld) [Volum e fraction]Ordered By: Flynn Castillo on 01-29-2023 Hematocrit (Bld) [Volume fraction] 42.3 % 37-47 [facility] Laboratory - Chemistry and C hemistry - challengeOrdered By: Flynn Castillo on 01-29-2023 CO2 [Moles/Vol] 29.0 mmol/L 21.0-32.0 [facility] Natriuretic peptide B (Bld) [Mass/Vol] 49.3 pg/mL 0-100 [facility] Urea nitrogen/Creatinine [Mass ratio] 31.8 mg/mg 10-20 [facility] - Hematology and Cell countsOrdered By: Flynn Castillo on 01-29-2023 Erythrocyte distribution width (RBC) [Entitic vol] 44.1 fL 35.1-43.9 [place] Erythrocyte distribution width (RBC) [Ratio] 13.6 % 11.6-14.6 [facility] Immature granulocytes/100 WBC (Bld) 1.500 % 0.0-0.9 [facility] Comment on above: IG% - Immature Granu locytes (promyelocytes, myelocytes and metamyelocytes) > 1% indicates that a LEFT SHIFT is Present. MCH (RBC) [Entitic mass] 29.0 pg 27.0-32.0 [facility] Nucleated RBC/100 WBC (Bld) [Ratio] 0 % 0-5 [facility] MCHC Auto (RBC) [Mass/Vol]Or dered By: Flynn Castillo on 01-29-2023 MCHC (RBC) [Mass/Vol] 32.9 g/dL 32-36 [facility] No Panel InformationOrdered By: Flynn Castillo on 08-23-2023 Troponin I High Sensitivity 6 pg/mL 3.0-54.0 [facility] Comment on above: Please Note: New Paty t Units and Gender Specific Reference Ranges. For more information see Policy Stat Procedure [place] High Sensitivity Troponin (TNIH) and attachments. Estimated Creatinine Clearance Calc 30.65 ml/min [facility] Estimated GFR (MDRD) Amer 61 mL/min >60 [facility] Comment on above: GFR Calc Estimated GFR (MDRD) Non-Af Amer 50 mL/min >60 [facility] Comment on above: Non- GFR Calc Platelets bldOrdered By: Parth Castillo on 01-29-2023 Platelets (Bld) [#/Vol] 234 10*3/uL 150-450 [facility] Serum or plasma calcium carl urement (mass/volume)Ordered By: Flynn Castillo on 01-29-2023 Calcium [Mass/Vol] 9.4 mg/dL 8.5-10.1 [place] Serum or plasma creatinine m easurement (mass/volume)Ordered By: Flynn Castillo on 01-29-2023 Creatinine [Mass/Vol] 1.10 mg/dL 0.55-1.02 [facility] Comment on above: The validity of the calculated GFR & GFRAA in patients over 70 years has not been determined. Clinical correlation is essential. Serum or plasma urea nitroge n measurement (mass/volume)Ordered By: Flynn Castillo on 01-29-2023 Urea nitrogen [Mass/Vol] 35 mg/dL 7-18 [facility] Thin prep Papanicolaou smear with manual screeningOrdered By: Flynn Castillo on 01-29-2023 Thin prep Papanicolaou smear with manual screening 6 5-15 [facility] Basic metabolic 2000 panelon 11-21-2022 Anion gap [Moles/Vol] 14 mmol/L 9 - 18 mmol/L [facility] Calcium [Mass/Vol] 10.0 mg/dL 8.5 - 10. 2 mg/dL [facility] Chloride [Moles/Vol] 104 mmol/L 97 - 10 5 mmol/L [facility] CO2 [Moles/Vol] 22 mmol/L 22 - 30 mmol/L [facility] Creatinine [Mass/Vol] 1.07 mg/dL High 0.58 - 0.96 mg/dL [facility] Estimated Glomerular Filtration Rate 52 mL/min/1.73m Low >=60 mL/min/1.73 m [facility] Glucose [Mass/Vol] 84 mg/dL 74 - 99 mg/dL [facility] Potassium [Moles/Vol] 4.9 mmol/L 3.7 - 5.1 mmol/L [facility] Sodium [Moles/Vol] 140 mmol/L 136 - 144 mmol/L [facility] Urea nitrogen [Mass/Vol] 20 mg/dL 7 - 21 mg/dL [facility] T4 FREE/FREE THYROXon 2022 Free T4 [Mass/Vol] 1.4 ng/dL 0.9 - 1.7 ng/dL [facility] TSH BLDon 11-21-2022 TSH Qn 2.850 m[IU]/L 0.270 - 4.200 mIU/L [facility] CBC W Auto Differential pane l (Bld)on 11-20-2022 Basophils (Bld) [#/Vol] <0.11 k/uL C [facility] Basophils/100 WBC (Bld) 0.3 % C [facility] Differential cell count method Nom (Bld) Auto [facility] Eosinophils (Bld) [#/Vol] 0.27 10*3/uL <0.46 k/ uL [facility] Eosinophils/100 WBC (Bld) 4.5 % [facility] Erythrocyte distribution width (RBC) [Ratio] 13.5 % 11.5 - 15.0 % [facility] Hematocrit (Bld) [Volume fraction] 40.7 % 36.0 - 46.0 % [facility] Hemoglobin (Bld) [Mass/Vol] 13.4 g/dL 11.5 - 15.5 g/dL [facility] Immature granulocytes (Bld) [#/Vol] 0.03 10*3/uL <0.10 k/uL [facility] Immature granulocytes/100 WBC (Bld) 0.5 % [facility] Lymphocytes (Bld) [#/Vol] 1.53 10*3/uL 1. 00 - 4.00 k/uL [facility] Lymphocytes/100 WBC (Bld) 25.8 % [facility] MCH (RBC) [Entitic mass] 28.6 pg 26. 0 - 34.0 pg [facility] MCHC (RBC) [Mass/Vol] 32.9 g/dL 30.5 - 36.0 g/dL [facility] MCV (RBC) [Entitic vol] 87.0 fL 80.0 - 100.0 fL [facility] Monocytes (Bld) [#/Vol] 0.59 10*3/uL <0.87 k/uL [facility] Monocytes/100 WBC (Bld) 9.9 % [facility] Neutrophils (Bld) [#/Vol] 3.50 10*3/uL 1. 45 - 7.50 k/uL [facility] Neutrophils/100 WBC (Bld) 59.0 % [facility] Nucleated RBC (Bld) [#/Vol] <0.01 k/ uL [facility] Nucleated RBC/100 WBC (Bld) [Ratio] 0.0 /100 WBC [facility] Platelet mean volume (Bld) [Entitic vol] 10.4 fL 9.0 - 12.7 fL [facility] Platelets (Bld) [#/Vol] 205 10*3/uL 150 - 400 k/uL [facility] RBC (Bld) [#/Vol] 4.68 10*6/uL 3.90 - 5.2 0 m/uL [facility] WBC (Bld) [#/Vol] 5.94 10*3/uL 3.70 - 11.00 k/uL [facility] Clostridium difficile detect ion by polymerase chain reactionOrdered By: Kevon Crum on 11-18-2022 C. difficile DNA SHIRAZ+probe Ql (Unsp spec) [facility] No Panel InformationOrdered By: Kevon Crum on 11-18-2022 Giardia Antigen (JONATHAN) [facility] Stool Calprotectin 83 ug/g 0-120 [place] Comment on above: Concentration Interp retation Follow-Up< 5 - 50 ug/g Normal None>50 -120 ug/g Borderline Re-evaluate in 4-6 weeks >120 ug/g Abnormal Repeat as clinically indicatedPerformed at: [facility] Lab[address] [id number] Director: Andres De Luna PhD, Phone: [phone] at: [facility] Lab[address] [id number] Director: Suki Winslow MD, Phone: [phone] Stool Neutral Fats Normal . [place] Comment on above: Normal (<60 Droplets /HPF) Stool Pancreatic Elastase 74 >200 [facility] Comment on above: Result Units: ug Alie st./gResults verified by repeat testing Severe Pancreatic Insufficiency: <100 Moderate Pancreatic Insufficiency: 100 - 200 Normal: >200Performed at: [address] [id number] Director: Suki Winslow MD, Phone: [phone] Ova and parasitesOrdered By: Kevon Crum on 11-18-2022 Ova and parasites identified LM Nom (Unsp spec) [facility] Qualitative fecal fat or lip idsOrdered By: Kevon Crum on 11-18-2022 Fat Ql (Stl) Increased . [facility] Comment on above: Normal (<100 Droplet s/HPF) Stool enteric pathogen panel by probe and target amplification methodOrdered By: Kevon Crum on 11-18-2022 Gastrointestinal pathogens panel SHIRAZ+probe (Stl) [facility] Stool gastrointestinal hemog lobin detection by immunologic methodOrdered By: Kevon Crum on 11-18-2022 Lower GI hemoglobin IA Ql (Stl) [facility] Stool lactoferrin detection by immunoassayOrdered By: Kevon Crum on 11-18-2022 Lactoferrin IA Ql (Stl) [facility] Atypical perinuclear antineu trophil cytoplasmic antibodies measurementOrdered By: Kevon Crum on 11-15-2022 Neutrophil cytoplasmic Ab.perinuclear.atypical IF (S) [Titer] <1:20 titer Neg:<1:20 [facility] Comment on above: The atypical pANCA p attern has been observed in asignificant percentage of patients with ulcerative colitis,primary sclerosing cholangitis and autoimmune hepatitis.Performed at: [address] [id number] Director: Andres De Luna PhD, Phone: [phone] Basophil percentageOrdered B y: Kevon Crum on 11-15-2022 Bilirubin [Mass/Vol] 0.60 mg/dL 0.20-1.00 [facility] Comment on above: For patients on eltr ombopag therapy, use of Dimension [place] TBIL is not recommended. Chloride [Moles/Vol] 107 mmol/L 98-107 [facility] Glucose [Mass/Vol] 85 mg/dL 74-106 [place] LDH [Catalytic activity/Vol] 182 U/L 84-246 [facility] Potassium [Moles/Vol] 4.4 mmol/L 3.5-5.1 [facility] Protein [Mass/Vol] 7.4 g/dL 6.4-8.2 [place] Sodium [Moles/Vol] 139 mmol/L 136-145 [place] Erythrocyte sedimentation ra teOrdered By: Kevon Crum on 11-15-2022 ESR (Bld) [Velocity] 16 mm/h 0-30 [facility] Laboratory - Chemistry and C hemistry - challengeOrdered By: Kevon Crum on 11-15-2022 ALP [Catalytic activity/Vol] 47 U/L 45-117 [facility] ALT [Catalytic activity/Vol] 24 U/L 13-56 [facility] CO2 [Moles/Vol] 27.0 mmol/L 21.0-32.0 [facility] Globulin (S) [Mass/Vol] 3.7 g/dL 2.2-4.2 [facility] Urea nitrogen/Creatinine [Mass ratio] 21.0 mg/mg 10-20 [facility] No Panel InformationOrdered By: Kevon Crum on 11-15-2022 Endomysial IgA Antibody Negative Negative [facility] Estimated GFR (MDRD) Amer 64 mL/min >60 [facility] Comment on above: GFR Calc Estimated GFR (MDRD) Non-Af Amer 53 mL/min >60 [facility] Comment on above: Non- GFR Calc Thyroid Stimulating Hormone (TSH) 1.82 uIU/mL 0.358-3.74 [facility] Serum IgA measurement (units /volume)Ordered By: Kevon Crum on 11-15-2022 IgA Qn (S) 295 mg/dL 64-422 [facility] Serum classic neutrophil cyt oplasmic antibody assay (units/volume)Ordered By: Kevon Crum on 11-15-2022 Neutrophil cytoplasmic Ab.classic Qn (S) 1:160 titer Neg:<1:20 [facility] Serum or plasma C reactive p rotein measurement (mass/volume)Ordered By: Kevon Crum on 11-15-2022 CRP [Mass/Vol] mg/L 0.0-3.0 [facility] Comment on above: C-Reactive Protein ( CRP) provides useful information for thediagnosis, therapy and monitoring of inflammatory processesand associated diseases. For the evaluation of Relative Riskfor Cardiovascular Disease, a High Sensitivity CRP (HSCRP)should be ordered. Serum or plasma albumin carl urement (mass/volume)Ordered By: Kevon Crum on 11-15-2022 Albumin [Mass/Vol] 3.7 g/dL 3.2-5.0 [place] Serum or plasma albumin/glob ulin mass ratioOrdered By: Kevon Crum on 11-15-2022 Albumin/Globulin [Mass ratio] 1.0 {ratio} 0.9-2.4 [facility] Serum or plasma calcium carl urement (mass/volume)Ordered By: Kevon Crum on 11-15-2022 Calcium [Mass/Vol] 9.5 mg/dL 8.5-10.1 [place] Serum or plasma creatinine m easurement (mass/volume)Ordered By: Kevon Crum on 11-15-2022 Creatinine [Mass/Vol] 1.05 mg/dL 0.55-1.02 [facility] Comment on above: The validity of the calculated GFR & GFRAA in patients over 70 years has not been determined. Clinical correlation is essential. Serum or plasma ferritin herbert surement (mass/volume)Ordered By: Kevon Crum on 11-15-2022 Ferritin [Mass/Vol] 105 ng/mL 8- [facility] Serum or plasma urea nitroge n measurement (mass/volume)Ordered By: Kevon Crum on 11-15-2022 Urea nitrogen [Mass/Vol] 22 mg/dL 7-18 [facility] Serum perinuclear neutrophil cytoplasmic antibody titer by immunofluorescenceOrdered By: Kevon Crum on 11-15-2022 Neutrophil cytoplasmic Ab.perinuclear IF (S) [Titer] <1:20 titer Neg:<1:20 [facility] Comment on above: The presence of posi tive fluorescence exhibiting P-ANCA orC-ANCA patterns alone is not specific for the diagnosis ofWegener's Granulomatosis (WG) or microscopic polyangiitis.Decisions about treatment should not be based solely onANCA IFA results. The International ANCA Group Consensusrecommends follow up testing of positive sera with both ND-3 and MPO-ANCA enzyme immunoassays. As many as 5% serumsamples are positive only by EIA. Ref. AM J Clin Fjtxwn3398;111:507-513. Serum tissue transglutaminas e IgA antibody assay (units/volume)Ordered By: Kevon Crum on 11-15-2022 tTG IgA Qn (S) 4 U/mL 0-3 [facility] Comment on above: Negative 0 - 3 Weak Positive 4 - 10 Positive >10 Tissue Transglutaminase (tTG) has been identified as the endomysial antigen. Studies have demonstr- ated that endomysial IgA antibodies have over 99% specificity for gluten sensitive enteropathy. Thin prep Papanicolaou smear with manual screeningOrdered By: Kevon Crum on 11-15-2022 Thin prep Papanicolaou smear with manual screening 19 U/L 15-37 [facility] Thin prep Papanicolaou smear with manual screening 5 5-[address] [facility] [address] ABDOMEN W IVCONon 023 [facility] No Panel Informationon 08-15 Troponin I High Sensitivity 7 pg/mL 3.0-54.0 [facility] Comment on above: Please Note: New Paty t Units and Gender Specific Reference Ranges. For more information see Policy Stat Procedure [place] High Sensitivity Troponin (TNIH) and attachments. Tomás 08-01-2022 [facility] Telephone ([facility]) NIDHI NÚÑEZ ([id number]) 1940 F Date Time Provider Department 08/01/22 [...] biliary tract [K83.8] Order(s):CT ABDOMEN W IVCON [4499389] Order #: [id number] FUTURE iv contrast (will be provided with [...] EachRfl: 0 CREATININE BLD [SQCRET] Order #: [id number] FUTURE Prescriptions as of 08/01/2022 - iv [...] A1c [R73 (more content not included)... Normal [facility] US ABD RT UPPER QUADRANTon 0 07-30-2022 [facility] Comprehensive metabolic 2000 panelon 12-20-2021 Albumin [Mass/Vol] 4.4 g/dL 3.9 - 4.9 g/dL [facility] ALP [Catalytic activity/Vol] 55 U/L 34 - 123 U/L [facility] ALT [Catalytic activity/Vol] 12 U/L 7 - 38 U/L [facility] Anion gap [Moles/Vol] 15 mmol/L 9 - 18 mmol/L [facility] AST [Catalytic activity/Vol] 20 U/L 13 - 35 U/L [facility] Bilirubin [Mass/Vol] 0.5 mg/dL 0.2 - 1 .3 mg/dL [facility] Calcium [Mass/Vol] 10.4 mg/dL High 8.5 - 10. 2 mg/dL [facility] Chloride [Moles/Vol] 101 mmol/L 97 - 10 5 mmol/L [facility] CO2 [Moles/Vol] 25 mmol/L 22 - 30 mmol/L [facility] Creatinine [Mass/Vol] 0.91 mg/dL 0.58 - 0.96 mg/dL [facility] Estimated Glomerular Filtration Rate 63 mL/min/1.73m >=60 mL/min/1.73 m [facility] Glucose [Mass/Vol] 90 mg/dL 74 - 99 mg/dL [facility] Potassium [Moles/Vol] 4.6 mmol/L 3.7 - 5.1 mmol/L [facility] Protein [Mass/Vol] 7.5 g/dL 6.3 - 8.0 g/dL [facility] Sodium [Moles/Vol] 141 mmol/L 136 - 144 mmol/L [facility] Urea nitrogen [Mass/Vol] 21 mg/dL 7 - 21 mg/dL [facility] LIPID PANEL, NONFASTINGon Cholesterol [Mass/Vol] 159 mg/dL <200 mg/dL Cl [facility] HDL Cholesterol, Nonfasting 47 mg/dL >39 mg/d L [facility] LDL Cholesterol, Nonfasting 75 mg/dL <100 mg/ dL [facility] LDL/HDL Ratio, Nonfasting 1.60 mg/dL <2.54 mg/d L [facility] Non HDL Cholesterol, Nonfasting 112 mg/dL <130 mg/dL [facility] Total Chol/HDL Ratio, Nonfasting 3.38 mg/dL <5.10 mg/dL [facility] Triglycerides, Nonfasting 183 mg/dL High <150 mg/dL [facility] VLDL Cholesterol, Nonfasting 37 mg/dL High <30 mg/dL [facility] MAGNESIUM BLDon 12-20-2021 Magnesium [Mass/Vol] 2.3 mg/dL 1.7 - 2 .3 mg/dL [facility] VITAMIN B12 BLOODon 12-21-19 Cobalamin (Vitamin B12) [Mass/Vol] 300 pg/mL 232-1,245 pg/mL [facility] CBC W Auto Differential pane l (Bld)on 12-19-2021 Abs Immature Gran 0.04 k/uL <0.10 k/uL [facility] Basophils (Bld) [#/Vol] 0.05 10*3/uL <0.11 k/uL [facility] Basophils/100 WBC (Bld) 0.5 % [facility] Differential cell count method Nom (Bld) Auto [facility] Eosinophils (Bld) [#/Vol] 0.31 10*3/uL <0.46 k/ uL [facility] Eosinophils/100 WBC (Bld) 3.1 % [facility] Erythrocyte distribution width (RBC) [Ratio] 13.4 % 11.5 - 15.0 % [facility] Hematocrit (Bld) [Volume fraction] 44.8 % 36.0 - 46.0 % [facility] Hemoglobin (Bld) [Mass/Vol] 14.2 g/dL 11.5 - 15.5 g/dL [facility] Immature Gran % 0.4 % [facility] Lymphocytes (Bld) [#/Vol] 2.01 10*3/uL 1. 00 - 4.00 k/uL [facility] Lymphocytes/100 WBC (Bld) 20.0 % [facility] [facility] MCH (RBC) [Entitic mass] 28.5 pg 26. 0 - 34.0 pg [facility] MCHC (RBC) [Mass/Vol] 31.7 g/dL 30.5 - 36.0 g/dL [facility] MCV (RBC) [Entitic vol] 90.0 fL 80.0 - 100.0 fL [facility] Monocytes (Bld) [#/Vol] 0.88 10*3/uL High <0.87 k/uL [facility] Monocytes/100 WBC (Bld) 8.8 % C [facility] Neutrophils (Bld) [#/Vol] 6.74 10*3/uL 1. 45 - 7.50 k/uL [facility] Neutrophils/100 WBC (Bld) 67.2 % [facility] Nucleated RBC (Bld) [#/Vol] 10*3/uL <0.01 k/ uL [facility] Nucleated RBC/100 WBC (Bld) [Ratio] 0.0 /100 WBC [facility] Platelet mean volume (Bld) [Entitic vol] 10.6 fL 9.0 - 12.7 fL [facility] Platelets (Bld) [#/Vol] 242 10*3/uL 150 - 400 k/uL [facility] RBC (Bld) [#/Vol] 4.98 10*6/uL 3.90 - 5.2 0 m/uL [facility] WBC (Bld) [#/Vol] 10.03 10*3/uL 3.70 - 11.00 k/uL [facility] Vital Signs Date Time Vital Sign Value Performing Clinician Facility 07-02-2024 13:46-0500 Body mass index (BMI) [Ratio] 30.24 kg/m2 Shakeel Collins APRN.TRESTLE MAINTERNANCE LABORER Work Phone: [facility] 07-02-2024 13:46-0500 Body weight 73.03 kg Shakeel Collins BICYCLE REPAIR TECHNICIAN.TRESTLE MAINTERNANCE LABORER Work Phone: [facility] 07-02-2024 13:46-0500 Diastolic blood pressure 70 mm[Hg] Shakeel Collins BICYCLE REPAIR TECHNICIAN.TRESTLE MAINTERNANCE LABORER Work Phone: [facility] 07-02-2024 13:46-0500 Heart rate 55 /min Shakeel Collins BICYCLE REPAIR TECHNICIAN.TRESTLE MAINTERNANCE LABORER Work Phone: [facility] 07-02-2024 13:46-0500 Systolic blood pressure 127 mm[Hg] Shakeel Collins BICYCLE REPAIR TECHNICIAN.TRESTLE MAINTERNANCE LABORER Work Phone: [facility] 11-28-2023 13:06-0400 Diastolic blood pressure 80 mm[Hg] Dustin Hoang MD Work Phone: [facility] 11-28-2023 13:06-0400 Systolic blood pressure 142 mm[Hg] Dustin Hoang MD Work Phone: [facility] 11-28-2023 12:36-0400 Body mass index (BMI) [Ratio] 30.05 kg/m2 Dustin Hoang MD Work Phone: [facility] 11-28-2023 12:36-0400 Body weight 72.58 kg Dustin Hoang MD Work Phone: [facility] 11-28-2023 12:36-0400 Heart rate 49 /min Dustin Hoang MD Work Phone: [facility] 11-28-2023 12:36-0400 Respiratory rate 16 /min Dustin Hoang MD Work Phone: [facility] 11-28-2023 12:36-0400 SaO2% (BldA) [Mass fraction] 94 % Dustin Hoang MD Work Phone: [facility] 11-24-2023 13:09-0400 Body height 155.4 cm Pulm Wstr Work Phone: [facility] 11-24-2023 13:09-0400 Body mass index (BMI) [Ratio] 30.05 kg/m2 Pulm Wstr Work Phone: [facility] 11-24-2023 13:09-0400 Body weight 72.58 kg Pulm Wstr Work Phone: [facility] 11-24-2023 13:09-0400 Heart rate 59 /min Pulm Wstr Work Phone: [facility] 11-24-2023 13:09-0400 Respiratory rate 14 /min Pulm Wstr Work Phone: [facility] 11-24-2023 13:09-0400 SaO2% (BldA) [Mass fraction] 99 % Pulm Wstr Work Phone: [facility] 11-21-2023 12:41-0400 Diastolic blood pressure 92 mm[Hg] Dustin Hoang MD Work Phone: [facility] 11-21-2023 12:41-0400 Systolic blood pressure 162 mm[Hg] Dustin Hoang MD Work Phone: [facility] 11-21-2023 11:01-0400 Body mass index (BMI) [Ratio] 28.17 kg/m2 Dustin Hoang MD Work Phone: [facility] 11-21-2023 11:01-0400 Body weight 72.12 kg Dustin Hoang MD Work Phone: [facility] 11-21-2023 11:01-0400 Heart rate 60 /min Dustin Hoang MD Work Phone: [facility] 11-21-2023 11:01-0400 Respiratory rate 18 /min Dustin Hoang MD Work Phone: [facility] 04-21-2023 13:13-0500 Body temperature 98.4 [degF] Monica Bogner PA-C Work Phone: [facility] 04-21-2023 13:13-0500 Body weight 71.85 kg Monica Bogner PA-C Work Phone: [facility] 04-21-2023 13:13-0500 Diastolic blood pressure 78 mm[Hg] Monica Bogner PA-C Work Phone: [facility] 04-21-2023 13:13-0500 Heart rate 92 /min Monica Bogner PA-C Work Phone: [facility] 04-21-2023 13:13-0500 Respiratory rate 19 /min Monica Bogner PA-C Work Phone: [facility] 04-21-2023 13:13-0500 SaO2% (BldA) [Mass fraction] 95 % Monica Bogner PA-C Work Phone: [facility] 04-21-2023 13:13-0500 Systolic blood pressure 124 mm[Hg] Monica Bogner PA-C Work Phone: [facility] 01-29-2023 18:32-0400 Diastolic blood pressure 70 mm[Hg] Dr. Dustin Joyner Work Phone: [facility] 01-29-2023 18:32-0400 Heart rate 52 /min Dr. Dustin Joyner Work Phone: [facility] 01-29-2023 18:32-0400 Respiratory rate 18 /min Dr. Dustin Joyner Work Phone: [facility] 01-29-2023 18:32-0400 Systolic blood pressure 138 mm[Hg] Dr. Dustin Joyner Work Phone: [facility] 01-29-2023 15:17-0400 Body height 157.[address] Dustin Joyner Work Phone: [facility] 01-29-2023 15:17-0400 Body mass index (BMI) [Ratio] 30.2 kg/m2 Dr. Dustin Joyner Work Phone: [facility] 01-29-2023 15:17-0400 Body temperature 97.8 [degF] Dr. Dustin Joyner Work Phone: [facility] 01-29-2023 15:17-0400 Body weight 74.[address] Dustin Joyner Work Phone: [facility] 01-29-2023 15:17-0400 SaO2% (BldA) [Mass fraction] 96 % Dr. Dustin Joyner Work Phone: [facility] 11-20-2022 09:58-0400 Body weight 75.75 kg Dustin Hoang MD Work Phone: [facility] 11-20-2022 09:58-0400 Diastolic blood pressure 86 mm[Hg] Dustin Hoang MD Work Phone: [facility] 11-20-2022 09:58-0400 Heart rate 56 /min Dustin Hoang MD Work Phone: [facility] 11-20-2022 09:58-0400 Respiratory rate 16 /min Dustin Hoang MD Work Phone: [facility] 11-20-2022 09:58-0400 SaO2% (BldA) [Mass fraction] 97 % Dustin Hoang MD Work Phone: [facility] 11-20-2022 09:58-0400 Systolic blood pressure 128 mm[Hg] Dustin Hoang MD Work Phone: [facility] 08-15-2022 10:34-0500 Body weight 75.75 kg Shakeel Collins APRN.TRESTLE MAINTERNANCE LABORER Work Phone: [facility] 08-15-2022 10:34-0500 Diastolic blood pressure 96 mm[Hg] Shakeel Collins BICYCLE REPAIR TECHNICIAN.TRESTLE MAINTERNANCE LABORER Work Phone: [facility] 08-15-2022 10:34-0500 Heart rate 64 /min Shakeel Collins BICYCLE REPAIR TECHNICIAN.TRESTLE MAINTERNANCE LABORER Work Phone: [facility] 08-15-2022 10:34-0500 Respiratory rate 16 /min Shakeel Collins BICYCLE REPAIR TECHNICIAN.TRESTLE MAINTERNANCE LABORER Work Phone: [facility] 08-15-2022 10:34-0500 Systolic blood pressure 158 mm[Hg] Shakeel Collins BICYCLE REPAIR TECHNICIAN.TRESTLE MAINTERNANCE LABORER Work Phone: [facility] 07-25-2022 11:49-0500 Diastolic blood pressure 92 mm[Hg] Dustin Hoang MD Work Phone: [facility] 07-25-2022 11:49-0500 Systolic blood pressure 160 mm[Hg] Dustin Hoang MD Work Phone: [facility] 07-25-2022 11:31-0500 Body weight 76.66 kg Dustin Hoang MD Work Phone: [facility] 07-25-2022 11:31-0500 Heart rate 54 /min Dustin Hoang MD Work Phone: [facility] 07-25-2022 11:31-0500 Respiratory rate 16 /min Dustin Hoang MD Work Phone: [facility] 02-26-2022 11:53-0400 Diastolic blood pressure 76 mm[Hg] Mi Nurse Work Phone: [facility] 02-26-2022 11:53-0400 Heart rate 57 /min Mi Nurse Work Phone: [facility] 02-26-2022 11:53-0400 Systolic blood pressure 127 mm[Hg] Mi Nurse Work Phone: [facility] 02-13-2022 11:17-0400 Diastolic blood pressure 85 mm[Hg] Mi Nurse Work Phone: [facility] 02-13-2022 11:17-0400 Heart rate 50 /min Mi Nurse Work Phone: [facility] 02-13-2022 11:17-0400 Systolic blood pressure 197 mm[Hg] Mi Nurse Work Phone: [facility] 01-09-2022 09:49-0400 Diastolic blood pressure 86 mm[Hg] Mi Nurse Work Phone: [facility] 01-09-2022 09:49-0400 Heart rate 54 /min Mi Nurse Work Phone: [facility] 01-09-2022 09:49-0400 Systolic blood pressure 159 mm[Hg] Mi Nurse Work Phone: [facility] 12-19-2021 11:33-0400 Diastolic blood pressure 77 mm[Hg] Dustin Hoang MD Work Phone: [facility] 12-19-2021 11:33-0400 Systolic blood pressure 152 mm[Hg] Dustin Hoang MD Work Phone: [facility] 12-19-2021 10:10-0400 Body weight 74.39 kg Dustin Hoang MD Work Phone: [facility] 12-19-2021 10:10-0400 Heart rate 60 /min Dustin Hoang MD Work Phone: [facility] 12-19-2021 10:10-0400 Respiratory rate 16 /min Dustin Hoang MD Work Phone: [facility] 10-30-2021 13:39-0400 Body temperature 96.91 [degF] Flores Athy PA-C Work Phone: [facility] 10-30-2021 13:39-0400 Body weight 74.84 kg Flores Athy PA-C Work Phone: [facility] 10-30-2021 13:39-0400 Diastolic blood pressure 80 mm[Hg] Flores Athy PA-C Work Phone: [facility] 10-30-2021 13:39-0400 Heart rate 62 /min Flores Athy PA-C Work Phone: [facility] 10-30-2021 13:39-0400 Respiratory rate 16 /min Flores Athy PA-C Work Phone: [facility] 10-30-2021 13:39-0400 SaO2% (BldA) [Mass fraction] 96 % Flores Athy PA-C Work Phone: [facility] 10-30-2021 13:39-0400 Systolic blood pressure 132 mm[Hg] Flores Athy PA-C Work Phone: [facility] Encounters Encounter Date Encounter Type Care Provider Facility Start: 11-11-2024 End: 11-11-2024 Refolivia CHRISTOPHER-C Work Phone: [facility] Comment on above: Refill Request Start: 09-27-2024 End: 09-27-2024 Refill Mamie Sotelo PA-C Work Phone: [facility] Comment on above: Refill Request Start: 08-13-2024 End: 08-13-2024 Refill Mamie Sotelo PA-C Work Phone: [facility] [place] Comment on above: Refill Request Start: 07-13-2024 End: 07-14-2024 Refill Dustin Hoang MD Work Phone: [facility] [place] Comment on above: Refill Request Start: 07-12-2024 End: 07-12-2024 Telephone encounter Shakeel Collins APRN.CNP Work Phone: [facility] Comment on above: Results Start: 07-09-2024 End: 07-09-2024 [facility] Start: 07-05-2024 End: 07-08-2024 Telephone encounter Shakeel Collins APRN.LISA Work Phone: [facility] Comment on above: Results Start: 07-02-2024 End: 07-02-2024 Patient encounter procedure Shakeel Collins APRN.TRESTLE MAINTERNANCE LABORER Work Phone: [facility] [place] Comment on above: Advance directive di scussed [...] contraction) Start: 07-02-2024 End: 07-02-2024 ambulatory DUSTIN [facility] Facility:[facility] Start: 06-30-2024 End: 06-30-2024 Refill Dustin Hoang MD Work Phone: [facility] Comment on above: Refill Request Start: 05-19-2024 End: 05-19-2024 Refill Dustin Hoang MD Work Phone: [facility] Comment on above: Refill Request Start: 04-21-2024 End: 04-21-2024 Refill Dustin Hoang MD Work Phone: [facility] Comment on above: Refill Request Start: 03-25-2024 End: 03-25-2024 ambulatory Kevon Crum [facility] Start: 03-23-2024 End: 03-23-2024 Chart abstracting Charlie Bradley [facility] [facility] Comment on above: ED Follow-up Start: 03-21-2024 End: 03-21-2024 [facility] Start: 03-03-2024 End: 03-03-2024 Refill Mamie CHRISTOPHER-Tom Work Phone: [facility] Comment on above: Refill Request Start: 03-02-2024 End: 03-02-2024 Chart abstracting Charlie Bradley MA [facility] Comment on above: Outside Testing ([facility] - xray) Start: 03-01-2024 End: 03-01-2024 ambulatory Dustin Giles Facility:[facility] Start: 02-18-2024 End: 02-18-2024 Refill Mamie CHRISTOPHER-C Work Phone: [facility] Comment on above: Refill Request Start: 02-17-2024 End: 02-18-2024 Refill Mamie CHRISTOPHER-C Work Phone: [facility] Comment on above: Refill Request Start: 01-29-2024 End: 01-29-2024 [facility] Work [facility]: [facility] Comment on above: Stress Test Instruct ions for 02/02/24 Start: 01-29-2024 End: 01-29-2024 E-mail encounter from caregiver Nurse Card Admin [facility] Work Phone: Cardiology Start: 01-09-2024 Telephone encounter Charlie Bradley MA [facility] Comment on above: Results Start: 01-08-2024 ambulatory John Alba Facility:[facility] Start: 01-06-2024 ambulatory John Alba Facility:[facility] Start: 01-06-2024 End: 01-06-2024 ambulatory Dustin Hoang Facility:[facility] Start: 12-31-2023 End: 12-31-2023 ambulatory DUSTIN HOANG Facility:[facility] Start: 12-16-2023 End: 12-16-2023 ambulatory Pulm Lab [facility] Work Phone: [facility]ULM [facility] Comment on above: Spirometry Start: 12-16-2023 End: 12-16-2023 Patient encounter procedure Pulm [facility] Work Phone: [facility] Start: 12-16-2023 Telephone encounter Dustin Hoang MD Work Phone: [facility] Comment on above: Results Start: 12-03-2023 Telephone encounter Charlie Bradley MA [facility] Comment on above: Appointment (Nuclear Stress Test - [facility] ) Start: 11-28-2023 End: 11-28-2023 Patient encounter procedure [facility] MD [facility] Comment on above: Essential hypertensi on (Primary Dx); [place] (dyspnea on exertion); Chest pain, unspecified type; Dizziness Start: 11-28-2023 End: 11-28-2023 ambulatory DUSTIN HOANG Facility:[facility] Start: 11-25-2023 Telephone encounter Shakeel bates APRN.CNP Work Phone: [facility] Comment on above: Results Start: 11-24-2023 Telephone encounter Mamie house PA-C Work Phone: [facility] Comment on above: Results Start: 11-24-2023 End: 11-24-2023 Patient encounter procedure Pulm Lab [facility] Work Phone: [facility] Start: 11-24-2023 End: 11-24-2023 ambulatory Pulm Lab [facility] Work Phone: [facility] Comment on above: Spirometry Start: 11-24-2023 End: 11-24-2023 Subsequent hospital visit by physician Ct [facility] (I-Stat) Work Phone: Cat Scan Comment on above: Ataxia [R27.0] Start: 11-21-2023 End: 11-21-2023 Subsequent hospital visit by physician Xr [facility] Work Phone: Radiology Comment on above: Chest pressure [R07. 89] Start: 11-21-2023 End: 11-21-2023 ambulatory DUSTIN HOANG Facility:[facility] Start: 11-21-2023 End: 11-21-2023 Patient encounter procedure Dustin Hoang MD Work Phone: [facility] Comment on above: Essential hypertensi on [...] Medication management Start: 11-18-2023 Refill Shakeel arana APRN.TRESTLE MAINTERNANCE LABORER Work Phone: [facility] Comment on above: Refill Request Start: 10-01-2023 End: 10-01-2023 ambulatory Kevon Crum Facility:[facility] Start: 09-29-2023 Refill Shakeel arana APRN.TRESTLE MAINTERNANCE LABORER Work Phone: [facility] Comment on above: Refill Request Start: 08-13-2023 Refill Mamie Correa on PA-C Work Phone: [facility] Comment on above: Refill Request Start: 07-29-2023 Refill Dustin murillo MD Work Phone: [facility] Comment on above: Refill Request Start: 04-21-2023 End: 04-21-2023 Subsequent hospital visit by physician Xr [facility] Work Phone: Radiology Comment on above: Acute cough [R05.1] Start: 04-21-2023 End: 04-21-2023 Office outpatient visit 25 minutes Monica Tan PA-C Work Phone: [facility] Comment on above: Rash (Primary Dx); Acute cough Start: 04-07-2023 Telephone encounter Dustin Hoang MD Work Phone: [facility] Comment on above: Medication Problem Start: 04-03-2023 Telephone encounter Dustin Hoang MD Work Phone: [facility] Comment on above: Medication Problem Refill Request Start: 03-20-2023 Refill Mamie Correa on PA-C Work Phone: [facility] Comment on above: Refill Request Start: 01-30-2023 Telephone encounter Charlie Bradley MA [facility] Comment on above: Results Start: 01-29-2023 End: 01-29-2023 Emergency department patient visit Dr. Dustin Joyner Work Phone: [facility] Work Phone: Start: 01-29-2023 Non-patient / Non-visit Dr. Dioni Joyner Work Phone: [facility] Start: 01-29-2023 Telephone encounter Dustin Hoang MD Work Phone: [facility] Comment on above: Patient Update Start: 01-29-[address] [facility] Work [facility]: Start: 01-16-2023 Refill Shakeel arana APRN.CNP Work Phone: [facility] Comment on above: Refill Request Start: 01-08-2023 Telephone encounter Dustin Hoang MD Work Phone: [facility] Comment on above: Results Start: 12-30-2022 End: 12-30-[address] Dustin Joyner Work Phone: [facility] Work Phone: Start: 12-30-2022 End: 12-30-[address] Dustin Joyner Work Phone: [facility]-Cat Scan, [facility] Work Phone: Start: 12-17-2022 [facility] Start: 11-29-2022 Chart abstracting Dustin fontenot MD Work Phone: [facility] [place] Comment on above: Results (Labs /) Start: 11-21-2022 Chart abstracting Dustin fontenot MD Work Phone: [facility] Comment on above: Outside [id number] Ordered Start: 11-21-2022 Telephone encounter Dustin Hoang MD Work Phone: [facility] Comment on above: Results Start: 11-20-2022 End: 11-20-2022 Patient encounter procedure Dustin Hoang MD Work Phone: [facility] Comment on above: Essential hypertensi on (Primary Dx); Mixed hyperlipidemia; Gastroesophageal reflux disease without esophagitis; Elevated hemoglobin A1c; Low serum vitamin B12; Angina pectoris (HCC); SOB (shortness of breath); Palpitations; Encounter for immunization; Advance directive discussed with patient; Medication management; Stage 3a chronic kidney disease (HCC) Start: 11-19-2022 Chart abstracting Dustin fontenot MD [facility] Comment on above: Results (Labs /) Start: 11-18-2022 End: 11-18-[address] Dustin Joyner Work Phone: [facility]-Laboratory, Specimen Start: 11-15-2022 End: 11-15-[address] Dustin Joyner Work Phone: [facility] Work Phone: Start: 11-15-2022 End: 11-15-[address] Dustin Joyner Work Phone: [facility] Start: 09-24-2022 Telephone encounter Shakeel bates APRN.TRESTLE MAINTERNANCE LABORER Work Phone: [facility] Comment on above: Results (Opened in e rror) Start: 09-20-2022 Telephone encounter Shakeel bates BICYCLE REPAIR TECHNICIAN.TRESTLE MAINTERNANCE LABORER Work Phone: [facility] Comment on above: Results Start: 08-29-2022 Refill Dustin murillo MD Work Phone: [facility] Comment on above: Refill Request Start: 08-21-2022 Chart abstracting Dustin fontenot MD Work Phone: [facility] Comment on above: Results Start: 08-16-2022 Telephone encounter Shakeel bates APRN.TRESTLE MAINTERNANCE LABORER Work Phone: [facility] Comment on above: Results Start: 08-15-2022 End: 08-15-2022 Patient encounter procedure Shakeel Collins BICYCLE REPAIR TECHNICIAN.TRESTLE MAINTERNANCE LABORER Work Phone: [facility] Comment on above: Chest pain, unspecif ied type (Primary Dx); Essential hypertension Start: 08-15-2022 End: 08-15-2022 [facility] Work Phone: Cat Scan Comment on above: Hydronephrosis, unsp ecified hydronephrosis type [N13.30] Start: 08-01-2022 Telephone encounter Dustin Hoang MD Work Phone: [facility] Comment on above: Results Start: 07-31-2022 Chart abstracting Dustin fontenot MD Work Phone: [facility] Comment on above: Consult (Consult ort ho ) Start: 07-30-2022 End: 07-30-2022 Subsequent hospital visit by physician [facility] Work Phone: Radiology Comment on above: Epigastric pain [R10 .13] Start: 07-26-2022 Telephone encounter Dustin Hoang MD Work Phone: [facility] Comment on above: Results Start: 07-25-2022 End: 07-25-2022 Patient encounter procedure Dustin Hoang MD Work Phone: [facility] Comment on above: Epigastric pain (Awa marcellus Dx); Gastroesophageal reflux disease without esophagitis; Essential hypertension; Mixed hyperlipidemia; Low serum vitamin B12; Hypercalcemia; Elevated hemoglobin A1c; Lumbar pain; Thoracic spine pain; Numbness and tingling of right leg; Balance problems Start: 04-25-2022 Refill Mamie Correa on PA-C [facility] Comment on above: Refill Request Start: 03-28-2022 Refill Dustin murillo MD Work Phone: [facility] Comment on above: Refill Request Start: 03-12-2022 ambulatory Dustin murillo MD Work Phone: [facility] Comment on above: Blood pressure Start: 02-26-2022 Telephone encounter Dustin Hoang MD Work Phone: [facility] Comment on above: Blood Pressure Check Start: 02-26-2022 End: 02-26-2022 Nursing evaluation of patient and report Mi Nurse Work [facility] Comment on above: Essential hypertensi on (Primary Dx) Start: 02-13-2022 Telephone encounter Dustin Hoang MD [facility] Comment on above: Blood Pressure Check Start: 02-13-2022 End: 02-13-2022 Nursing evaluation of patient and report Mi Nurse [facility] Comment on above: Essential hypertensi on (Primary Dx) Start: 01-14-2022 Telephone encounter Dustin Hoang MD [facility] Comment on above: Blood Pressure Check Start: 01-09-2022 End: 01-09-2022 Nursing evaluation of patient and report Mi Nurse Work Phone: [facility] Comment on above: Essential hypertensi on (Primary Dx) Start: 01-06-2022 Telephone encounter Dustin Hoang MD Work Phone: [facility] Comment on above: Results Start: 12-23-2021 Telephone encounter Dustin Hoang MD Work Phone: [facility] Comment on above: Results Start: 12-19-2021 End: 12-19-2021 Patient encounter procedure Dustin Hoang MD Work Phone: [facility] Comment on above: Medicare annual well ness visit, subsequent (Primary Dx); Essential hypertension; Mixed hyperlipidemia; Elevated hemoglobin A1c; Gastroesophageal reflux disease without esophagitis; Irritable bowel syndrome, unspecified type; Overactive bladder; [place] (actinic keratosis); Chronic pain syndrome; Medication management; Advance directive discussed with patient; Living will in place Start: 11-08-2021 Refill Mamie Correa on PA-C Work Phone: [facility] Comment on above: Refill Request Start: 11-03-2021 Telephone encounter Iram Velez APRN.TRESTLE MAINTERNANCE LABORER Work Phone: [facility] Comment on above: Results Start: 11-02-2021 Telephone encounter Iram Velez APRN.TRESTLE MAINTERNANCE LABORER Work Phone: [facility] Comment on above: Results Start: 10-31-2021 Telephone encounter Maria Luisa Bradley APRN.TRESTLE MAINTERNANCE LABORER Work Phone: [facility] Comment on above: Results Start: 10-30-2021 End: 10-30-2021 Patient encounter procedure Flores Peters PA-C Work Phone: [facility] Comment on above: Facial rash (Primary Dx) Start: 04-17-2020 Patient encounter procedure Flores Peters PA-C Work Phone: [facility] Work Phone: Start: 04-17-2020 Patient encounter status Flores Peters PA-C Work Phone: [facility] Work Phone: Start: 05-09-2017 Patient encounter status Flores Singhann RENEE Work Phone: [facility] Work Phone: Procedures Date Procedure Procedure Detail Performing Clinician Start: 07-02-2024 Adult depression scr eening assessment Shakeel Olivoapril BICYCLE REPAIR TECHNICIAN.TRESTLE MAINTERNANCE LABORER Work Phone: Start: 12-16-2023 Noninvasive ear/puls e [...] Dr. Dustin Joyner Work Phone: Start: 11-20-2022 Advisity-LOANZ COVI D-19 BIVALENT VACCINE, AGE 12+ YR [...] DTaP,Tdap,Td Vaccine (2 - Td or Tdap) [facility] Start: 07-02-2027 Diabetes Screening Diabetes Screening [facility] Start: 11-20-2026 Diabetes Screening Diabetes Screening [facility] Start: 05-22-2026 Diabetes Screening Diabetes Screening [facility] Start: 11-20-2025 DIABETES SCREEN DIABETES SCREEN [facility] Start: 11-20-2025 Diabetes Screening Diabetes Screening [facility] Start: 09-23-2025 DIABETES SCREEN DIABETES SCREEN [facility] Start: 09-19-2025 DIABETES SCREEN DIABETES SCREEN [facility] Start: 07-25-2025 DIABETES SCREEN DIABETES SCREEN [facility] Start: 07-02-2025 Anxiety Screening Anxiety Screening [facility] Start: 07-02-2025 Depression Screening Depression Screening [facility] Start: 01-07-2025 End: 01-07-2025 Patient encounter procedure [facility] [place] Comment on above: 6 month follow up Start: 12-19-2024 DIABETES SCREEN DIABETES SCREEN [facility] Start: 10-02-2024 Covid-19 Vaccine () Covid-19 Vaccine () [facility] Start: 07-05-2024 End: 10-04-2024 Bacteria identified in Urine by Culture BACTERIAL CULTURE, URINE Microbiology Routine Abnormal urinalysis Expected: 07/05/2024, Expires: 10/04/2024 [facility] Work Phone: Comment on above: Expected: 07/05/2024, Expires: Start: 07-02-2024 End: 07-02-2024 Patient encounter procedure 07/02/2024 2:00 PM EST Office Visit [facility] [place] [address] [facility] [place] [address] Shakeel Collins APRN.TRESTLE MAINTERNANCE LABORER [address] [place], [place] [id number] Medicare wellness [facility] [place] Comment on above: Medicare wellness Start: 06-19-2024 DIABETES SCREEN DIABETES SCREEN [facility] Start: 06-09-2024 Advance Directive Discussion Advance Directive Discussion [facility] Start: 05-31-2024 End: 05-31-2024 Patient encounter procedure 05/31/2024 10:20 AM EST Office Visit [facility] [place] [address] [facility], [place] [address] Shakeel Collins, BICYCLE REPAIR TECHNICIAN.TRESTLE MAINTERNANCE LABORER [address] [place], [place] [id number] Medicare wellness [facility] [place] Comment on above: Medicare wellness Start: 05-07-2024 End: 08-06-2024 CBC W Auto Differential panel - Blood COMPLETE BLOOD COUNT AND DIFFERENTIAL Lab Routine Stage 3a chronic kidney disease (HCC) Expected: 05/07/2024, Expires: 08/06/2024 [facility] Comment on above: Expected: 05/07/2024, Expires: Start: 05-07-2024 End: 08-06-2024 Cobalamin (Vitamin B12) [Mass/volume] in Serum or Plasma VITAMIN B12 Lab Routine Gastroesophageal reflux disease without esophagitis Low serum vitamin B12 Medication management Expected: 05/07/2024, Expires: 08/06/2024 [facility] Comment on above: Expected: 05/07/2024, Expires: Start: 05-07-2024 End: 08-06-2024 Comprehensive metabolic 2000 panel - Serum or Plasma COMPREHENSIVE METABOLIC PANEL Lab Routine Essential hypertension Mixed hyperlipidemia Stage 3a chronic kidney disease (HCC) PAC (premature atrial contraction) Expected: 05/07/2024, Expires: 08/06/2024 [facility] Comment on above: Expected: 05/07/2024, Expires: Start: 05-07-2024 End: 08-06-2024 Hemoglobin A1c in Blood HEMOGLOBIN A1C Lab Routine Elevated hemoglobin A1c Expected: 05/07/2024, Expires: 08/06/2024 [facility] Comment on above: Expected: 05/07/2024, Expires: Start: 05-07-2024 End: 08-06-2024 LIPID PANEL, NONFASTING LIPID PANEL, NONFASTING Lab Routine Essential hypertension Mixed hyperlipidemia Expected: 05/07/2024, Expires: 08/06/2024 [facility] Comment on above: Expected: 05/07/2024, Expires: Start: 05-07-2024 End: 08-06-2024 Magnesium [Mass/volume] in Serum or Plasma MAGNESIUM Lab Routine Gastroesophageal reflux disease without esophagitis Medication management Expected: 05/07/2024, Expires: 08/06/2024 [facility] Comment on above: Expected: 05/07/2024, Expires: Start: 05-07-2024 End: 08-06-2024 Thyrotropin [Units/volume] in Serum or Plasma THYROID STIMULATING HORMONE Lab Routine PAC (premature atrial contraction) Expected: 05/07/2024, Expires: 08/06/2024 [facility] Comment on above: Expected: 05/07/2024, Expires: Start: 05-07-2024 End: 08-06-2024 Urinalysis complete panel - Urine URINALYSIS, WITH MICROSCOPIC Lab Routine Essential hypertension Mixed hyperlipidemia Expected: 05/07/2024, Expires: 08/06/2024 [facility] Comment on above: Expected: 05/07/2024, Expires: Start: 02-08-2024 Covid-19 Vaccine () Covid-19 Vaccine () [facility] Start: 02-08-2024 Covid-19 Vaccine ( season) Covid-19 Vaccine () [facility] Start: 02-08-2024 Influenza vaccination Influenza Vaccine (#1) [place] Laura nguyen Start: 02-02-2024 End: 02-02-2024 Nursing evaluation of patient and report 02/02/2024 8:15 AM EDT Nurse Visit Cardiology [address] [place] [id number] W[place], Nurse Card Admin [facility] [address] [id number] Essential hypertension [I10] Cardiology Comment on above: Essential hypertension [I10] Start: 02-02-2024 End: 02-02-2024 Patient encounter procedure Nuclear Medicine Comment on above: Essential hypertension [I10] Start: 12-31-2023 End: 12-31-2023 Patient encounter procedure 12/31/2023 3:30 PM EDT Office Visit Vasculary Surgery [address] [id number] Dizziness [R42] [facility] Comment on above: Dizziness [R42] Start: 12-16-2023 End: 12-16-2023 Patient encounter procedure 12/16/2023 2:40 PM EDT Office Visit Cardiology [address] [place] [id number] Chest pressure [R07.89]; [place] (dyspnea on exertion) [R06.09]; Decreased stamina [R53.83] Cardiology Comment on above: Chest pressure [R07.89]; [place] (dyspnea on exertion) [R06.09]; Decreased stamina [R53.83] Start: 12-16-2023 End: 12-16-2023 ambulatory 12/16/2023 2:00 PM EDT Procedure PULM LAB [facility] [address] [place] [address] Wstr, Pulm Lab [facility] [address] [place] [address] [place]OMERY (dyspnea on exertion) [R06.09] PULM LAB [facility] Comment on above: [place] (dyspnea on exertion) [R06.09] Start: 11-28-2023 End: 11-28-2023 Patient encounter procedure 11/28/2023 12:20 PM EDT Office Visit [facility] [place] [address] [place], [place] [address] Dustin Hoang MD [address] [place] [address] 1 week follow up [facility] [place] Comment on above: 1 week follow up Start: 11-21-2023 SHINGRIX VACCINE (2 of 2) SHINGRIX VACCINE (2 of 2) [facility] Comment on above: Postponed from 04/25/2022 (Insurance Cov erage) Start: 11-21-2023 End: 11-21-2023 Patient encounter procedure 11/21/2023 11:00 AM EDT Office Visit [facility] [place] [address] [place] [address] Dustin Hoang MD [address] [place], [place] [id number] 6 month follow up [facility] [place] Comment on above: 6 month follow up Start: 09-21-2023 Covid-19 Vaccine () Covid-19 Vaccine () [facility] Start: 06-09-2023 Advance Directive Discussion Advance Directive Discussion [facility] Start: 06-09-2023 Behavioral Health Screening Behavioral Health Screening [facility] Start: 06-09-2023 Depression Assessment Depression Assessment [facility] Start: 05-09-2023 End: 07-09-2023 CBC W Auto Differential panel - Blood CBC + DIFF Lab Routine Low serum vitamin B12 Medication management Expected: 05/09/2023, Expires: 07/09/2023 [facility] Work Phone: Comment on above: Expected: 05/09/2023, Expires: Start: 05-09-2023 End: 07-09-2023 Cobalamin (Vitamin B12) [Mass/volume] in Serum or Plasma VITAMIN B12 BLOOD Lab Routine Gastroesophageal reflux disease without esophagitis Low serum vitamin B12 Medication management Expected: 05/09/2023, Expires: 07/09/2023 [facility] Work Phone: Comment on above: Expected: 05/09/2023, Expires: Start: 05-09-2023 End: 07-09-2023 Comprehensive metabolic 2000 panel - Serum or Plasma COMP METABOLIC PANEL Lab Routine Mixed hyperlipidemia Essential hypertension Expected: 05/09/2023, Expires: 07/09/2023 [facility] Work Phone: Comment on above: Expected: 05/09/2023, Expires: Start: 05-09-2023 End: 07-09-2023 Hemoglobin A1c in Blood HGB A1C Lab Routine Elevated hemoglobin A1c Expected: 05/09/2023, Expires: 07/09/2023 [facility] Work Phone: Comment on above: Expected: 05/09/2023, Expires: 4 Start: 05-09-2023 End: 07-09-2023 LIPID PANEL, NONFASTING LIPID PANEL, NONFASTING Lab Routine Mixed hyperlipidemia Essential hypertension Expected: 05/09/2023, Expires: 07/09/2023 [facility] Work Phone: Comment on above: Expected: 05/09/2023, Expires: 4 Start: 05-09-2023 End: 07-09-2023 Magnesium [Mass/volume] in Serum or Plasma MAGNESIUM BLD Lab Routine Gastroesophageal reflux disease without esophagitis Medication management Expected: 05/09/2023, Expires: 07/09/2023 [facility] Work Phone: Comment on above: Expected: 05/09/2023, Expires: Start: 05-09-2023 End: 07-09-2023 Urinalysis complete panel - Urine URINALYSIS, WITH MICROSCOPIC Lab Routine Mixed hyperlipidemia Essential hypertension Expected: 05/09/2023, Expires: 07/09/2023 [facility] Work Phone: Comment on above: Expected: 05/09/2023, Expires: 4 Start: 03-22-2023 COVID-19 VACCINE (5 - Pfizer series) COVID-19 VACCINE (5 - Pfizer series) [facility] Start: 02-07-2023 Covid-19 Vaccine (2022- season) Covid-19 Vaccine () [facility] Start: 02-07-2023 Influenza vaccination [facility] Start: 01-29-2023 [facility] Start: 12-19-2022 SHINGRIX VACCINE (1 of 2) SHINGRIX VACCINE (1 of 2) [facility] Comment on above: Postponed from 1989 (Insurance Cov erage) Start: 12-19-2022 Urine microalbumin profile DTAP,TDAP,TD (1 - Tdap) [facility] Comment on above: Postponed from 1958 (Insurance Cov erage) Start: 11-18-2022 Elastase, pancreatic (el-1), fecal; quantitative [facility] Start: 11-18-2022 Fat [Presence] in Stool [facility] Start: 11-18-2022 Protein measurement [facility] Start: 11-18-2022 [facility] Start: 09-20-2022 End: 11-20-2022 Comprehensive metabolic 2000 panel - Serum or Plasma COMP METABOLIC PANEL Lab Routine Elevated serum creatinine Expected: 09/20/2022, Expires: 11/20/2022 [facility] Work Phone: Comment on above: Expected: 09/20/2022, Expires: 3 Start: 08-15-2022 End: 10-15-2022 CBC W Auto Differential panel - Blood [facility] Work Phone: Comment on above: Expected: 08/15/2022, Expires: 3 Start: 08-15-2022 End: 10-15-2022 HIGH SENSITIVITY TROPONIN T HIGH SENSITIVITY TROPONIN T Lab Routine Chest pain, unspecified type Expected: 08/15/2022, Expires: 10/15/2022 [facility] Work Phone: Comment on above: Expected: 08/15/2022, Expires: 3 Start: 08-01-2022 End: 10-01-2022 CREATININE BLD CREATININE BLD Lab Routine Hydronephrosis, unspecified hydronephrosis type Expected: 08/01/2022, Expires: 10/01/2022 [facility] Work Phone: Comment on above: Expected: 08/01/2022, Expires: 3 Start: 07-25-2022 End: 09-24-2022 Amylase [Enzymatic activity/volume] in Serum or Plasma [facility] Work Phone: Comment on above: Expected: 07/25/2022, Expires: 3 Start: 07-25-2022 End: 09-24-2022 Calcium [Mass/volume] in Serum or Plasma [facility] Work Phone: Comment on above: Expected: 07/25/2022, Expires: 3 Start: 07-25-2022 End: 09-24-2022 Cobalamin (Vitamin B12) [Mass/volume] in Serum or Plasma [facility] Work Phone: Comment on above: Expected: 07/25/2022, Expires: 3 Start: 07-25-2022 End: 09-24-2022 Hemoglobin A1c in Blood [facility] Work Phone: Comment on above: Expected: 07/25/2022, Expires: 3 Start: 07-25-2022 End: 09-24-2022 Hepatic function 2000 panel - Serum or Plasma [facility] Work Phone: Comment on above: Expected: 07/25/2022, Expires: 3 Start: 07-25-2022 End: 09-24-2022 Lipase [Enzymatic activity/volume] in Serum or Plasma [facility] Work Phone: Comment on above: Expected: 07/25/2022, Expires: 3 Start: 07-25-2022 End: 09-24-2022 LIPID PANEL, NONFASTING [facility] Work Phone: Comment on above: Expected: 07/25/2022, Expires: 3 Start: 07-25-2022 End: 09-24-2022 Parathyrin.intact [Mass/volume] in Serum or Plasma [facility] Work Phone: Comment on above: Expected: 07/25/2022, Expires: 3 Start: 06-09-2022 ADVANCE DIRECTIVE DISCUSSION ADVANCE DIRECTIVE DISCUSSION [facility] Start: 06-09-2022 DEPRESSION ASSESSMENT DEPRESSION ASSESSMENT [facility] Start: 04-25-2022 SHINGRIX VACCINE (2 of 2) SHINGRIX VACCINE (2 of 2) [facility] Start: 02-07-2022 End: 04-09-2022 25-hydroxyvitamin D3 [Mass/volume] in Serum or Plasma VITAMIN D 25 HYDROXY Lab Routine Hypercalcemia Expected: 02/07/2022, Expires: 04/09/2022 [facility] Work Phone: Comment on above: Expected: 02/07/2022, Expires: 2 Start: 02-07-2022 End: 04-09-2022 Calcium [Mass/volume] in Serum or Plasma CALCIUM TOTAL BLD Lab Routine Hypercalcemia Expected: 02/07/2022, Expires: 04/09/2022 [facility] Work Phone: Comment on above: Expected: 02/07/2022, Expires: 2 Start: 02-07-2022 Influenza vaccination INFLUENZA (#1) [facility] Start: 02-07-2022 End: 04-09-2022 Parathyrin.intact [Mass/volume] in Serum or Plasma PTH INTACT BLD Lab Routine Hypercalcemia Expected: 02/07/2022, Expires: 04/09/2022 [facility] Work Phone: Comment on above: Expected: 02/07/2022, Expires: 2 Start: 12-23-2021 End: 02-22-2022 Calcium [Mass/volume] in Serum or Plasma CALCIUM TOTAL BLD Lab Routine Hypercalcemia Expected: 12/23/2021, Expires: 02/22/2022 [facility] Work Phone: Comment on above: Expected: 12/23/2021, Expires: 2 Start: 12-23-2021 End: 02-22-2022 Parathyrin.intact [Mass/volume] in Serum or Plasma PTH INTACT BLD Lab Routine Hypercalcemia Expected: 12/23/2021, Expires: 02/22/2022 [facility] Work Phone: Comment on above: Expected: 12/23/2021, Expires: 2 Start: 12-19-2021 End: 02-18-2022 Hemoglobin A1c in Blood [facility] Work Phone: Comment on above: Expected: 12/19/2021, Expires: 2 Start: 12-19-2021 End: 02-18-2022 Urinalysis complete panel - Urine [facility] Work Phone: Comment on above: Expected: 12/19/2021, Expires: 2 Start: 10-30-2021 End: 12-30-2021 Bacteria identified in Wound by Culture WOUND CULTURE AND GRAM STAIN Microbiology Routine Facial rash Expected: 10/30/2021, Expires: 12/30/2021 [facility] Work Phone: Comment on above: Expected: 10/30/2021, Expires: 2 Start: 10-30-2021 End: 12-30-2021 Herpes simplex virus+Varicella zoster virus DNA [Presence] in Unspecified specimen by SHIRAZ with probe detection HSV 1,2/VZV AMP MOLECULAR DETECT Lab Routine Facial rash Expected: 10/30/2021, Expires: 12/30/2021 [facility] Work Phone: Comment on above: Expected: 10/30/2021, Expires: 2 Start: 07-29-2021 COVID-19 VACCINE (4 - Booster for Pfizer series) COVID-19 VACCINE (4 - Booster for Pfizer series) [facility] Start: 06-09-2021 ADVANCE DIRECTIVE DISCUSSION ADVANCE DIRECTIVE DISCUSSION [facility] Start: 06-09-2021 DEPRESSION ASSESSMENT DEPRESSION ASSESSMENT [facility] Start: 05-23-2021 COVID-19 VACCINE (4 - Booster for Pfizer series) COVID-19 VACCINE (4 - Booster for Pfizer series) [facility] Start: 2014 RSV Vaccine (1 - 1-dose 75+ series) RSV Vaccine (1 - 1-dose 75+ series) [facility] Start: 1999 RSV Vaccine (1 - 1-dose 60+ series) RSV Vaccine (1 - 1-dose 60+ series) [facility] Start: 1989 SHINGRIX VACCINE (1 of 2) SHINGRIX VACCINE (1 of 2) [facility] Start: 1958 Urine microalbumin profile [facility] Start: 1957 Anxiety Screening Anxiety Screening [facility] Start: 1957 Depression Screening Depression Screening [facility] End: 08-31-2023 Ct abdomen w/contrast material CT ABDOMEN W IVCON Radiology Routine Hydronephrosis, unspecified hydronephrosis type Dilation of biliary tract 1 Occurrences starting 08/01/2022 until 08/31/2023 [facility] Work Phone: Comment on above: 1 Occurrences starting 08/01/2022 until 08/31/2023 End: 08-16-2023 ECG COMPLETE ECG COMPLETE ECG Routine Chest pain, unspecified type 1 Occurrences starting 08/15/2022 until 08/16/2023 [facility] Work Phone: Comment on above: 1 Occurrences starting 08/15/2022 until 08/16/2023 ECG COMPLETE ECG COMPLETE ECG 11/21/2023 12:18 PM EDT [facility] End: 11-20-2024 Echocardiography ECHO Cardiology Routine Chest pressure [place] (dyspnea on exertion) Decreased stamina 1 Occurrences starting 11/21/2023 until 11/20/2024 [facility] Work Phone: Comment on above: 1 Occurrences starting 11/21/2023 until 11/20/2024 Fat [Mass/mass] in Stool [facility] Fat.neutral [Presenc e] in Stool [facility] EVENT MONITOR [facility] EVENT MONITOR Cardiology Routine SOB (shortness of breath) Palpitations Ordered: 11/20/2022 [facility] Work Phone: Comment on above: Ordered: 11/20/2022 NM CARDIAC PERF STRESS/PHARM NM CARDIAC PERF STRESS/PHARM Radiology STAT Angina pectoris (HCC) SOB (shortness of breath) Palpitations Ordered: 11/20/2022 [facility] Work Phone: Comment on above: Ordered: 11/20/2022 End: 12-20-2024 NM Heart Perfusion W stress and W radionuclide IV NM CARDIAC PERF STRESS/PHARM Radiology Routine Essential hypertension Chest pressure [place] (dyspnea on exertion) Decreased stamina Encounter for screening for cardiovascular disorders 1 Occurrences starting 11/21/2023 until 12/20/2024 [facility] Comment on above: 1 Occurrences starting 11/21/2023 until 12/20/2024 Ova and parasites identified in Unspecified specimen by Light microscopy [facility] End: 12-27-2024 OXIMETRY WITH AMBULATION OXIMETRY WITH AMBULATION PFT Routine [place] (dyspnea on exertion) 1 Occurrences starting 11/28/2023 until 12/27/2024 [facility] Work Phone: Comment on above: 1 Occurrences starting 11/28/2023 until 12/27/2024 Patient Education ED Weakness (U ncertain Cause) [facility] Work Phone: Patient referral [facility] Work Phone: SPIROMETRY - BASELIN E AND POST DILATOR SPIROMETRY - BASELINE AND POST DILATOR PFT Routine [place] (dyspnea on exertion) Decreased stamina Ex-smoker 11/24/2023 1:00 PM EDT [facility] Work Phone: End: 08-24-2023 Us abdominal real time w/image limited US ABD RT UPPER QUADRANT Radiology Routine Epigastric pain 1 Occurrences starting 07/25/2022 until 08/24/2023 [facility] Work Phone: Comment on above: 1 Occurrences starting 07/25/2022 until 08/24/2023 End: 11-20-2024 US Carotid arteries - bilateral US CAROTID ARTERIES [facility] Vascular Lab Routine Dizziness 1 Occurrences starting 11/21/2023 until 11/20/2024 [facility] Comment on above: 1 Occurrences starting 11/21/2023 until 11/20/2024 End: 12-20-2024 XR Chest PA and Lateral XR CHEST 2V FRONTAL/LAT Radiology Routine Chest pressure [place] (dyspnea on exertion) Decreased stamina Ex-smoker 1 Occurrences starting 11/21/2023 until 12/20/2024 [facility] Comment on above: 1 Occurrences starting 11/21/2023 until 12/20/2024 XR Chest PA and Lateral XR CHEST 2V FRONTAL/LAT Radiology Routine Chest pressure [place] (dyspnea on exertion) Decreased stamina Ex-smoker 11/21/2023 1:21 PM EDT [facility] Immunizations Immunization Date Immunization Notes Care Provider Hood maldonado 07-09-2024 respiratory syncytia l virus (RSV) vaccine, unspecified formulation Shakeel Collins APRN.TRESTLE MAINTERNANCE LABORER Work Phone: [facility] 07-09-2024 tetanus toxoid, redu cyndee diphtheria toxoid, and acellular pertussis vaccine, adsorbed Shakeel Collins APRN.TRESTLE MAINTERNANCE LABORER Work Phone: [facility] 04-03-2024 COVID-19 vaccine, ag e 12+ yr (MODERNA) Dustin Hoang MD Work Phone: [facility] 04-03-2024 Seasonal trivalent influenza vaccine, adjuvanted, preservative free Dustin Hoang MD Work Phone: [facility] 05-22-2023 COVID-19 vaccine, ag e 12+ yr, season ([employer]) Dustin Hoang MD Work Phone: [facility] 05-22-2023 influenza (HD-IIV4) vaccine, age 65+ yr, high dose, quadrivalent, PF (FLUZONE HIGH-DOSE) Dustin Hoang MD Work Phone: [facility] 05-22-2023 influenza virus vacc ine, unspecified formulation Pulm Wstr Work Phone: [facility] 11-20-2022 COVID-19 vaccine, ag e 12+ yr, bivalent ([employer]) Dustin Hoang MD Work Phone: [facility] 02-28-2022 influenza (HD-IIV4) vaccine, age 65+ yr, high dose, quadrivalent, PF (FLUZONE HIGH-DOSE) Dustin Hoang MD Work Phone: [facility] 02-28-2022 influenza, high dose seasonal, preservative-free Dustin Hoang MD Work Phone: [facility] 02-28-2022 zoster vaccine recombinant Dustin Hoang MD Work Phone: [facility] 02-28-2022 influenza virus vacc ine, unspecified formulation Mamie Sotelo PA-C Work Phone: [facility] 03-28-2021 influenza, high-dose , quadrivalent vaccine (FLUZONE HIGH DOSE QUADRIVALENT) Flores Peters PA-C Work Phone: [facility] 03-15-2020 influenza, high dose seasonal, preservative-free Flores Peters PA-C Work Phone: [facility] 03-15-2020 influenza, high-dose , quadrivalent vaccine (FLUZONE HIGH DOSE QUADRIVALENT) Flores Peters PA-C Work Phone: [facility] 03-11-2019 influenza, seasonal, injectable Flores Peters PA-C Work Phone: [facility] 03-11-2019 Seasonal trivalent influenza vaccine, adjuvanted, preservative free Dustin Hoang MD Work Phone: [facility] 03-27-2018 influenza, high dose seasonal, preservative-free Dustin Hoang MD Work Phone: [facility] 05-09-2017 pneumococcal polysaccharide vaccine, 23 valent Flores Peters PA-C Work Phone: [facility] 03-07-2017 influenza, high dose seasonal, preservative-free Flores Athy PA-C Work Phone: [facility] 03-03-2017 influenza, high dose seasonal, preservative-free Dustin Hoang MD Work Phone: [facility] 02-28-2016 influenza, high dose seasonal, preservative-free Flores Athy PA-C Work Phone: [facility] 03-30-2015 influenza, high dose seasonal, preservative-free Dustin Hoang MD Work Phone: [facility] 08-23-2014 pneumococcal conjuga te vaccine, 13 valent Flores Athy PA-C Work Phone: [facility] 04-09-2014 influenza, seasonal, injectable Flores Athy PA-C Work Phone: [facility] 03-15-[address] Dustin Joyner Work Phone: [facility] 03-23-2012 influenza virus vacc ine, unspecified formulation Flores Athy PA-C Work Phone: [facility] 07-18-2010 pneumococcal polysaccharide vaccine, 23 valent Flores Athy PA-C Work Phone: [facility] Work Phone: 03-15-2010 influenza virus vacc ine, unspecified formulation Flores Athy PA-C Work Phone: [facility] 03-09-2009 influenza virus vacc ine, unspecified formulation Flores Athy PA-C Work Phone: [facility] Work Phone: Payers Date Payer Category Payer Self-pay [id number] 2023 Medicare [employer] MEDICARE A ETNA MEDICARE ASSURE HMO D SNP [id number] 2023-Present [phone] [address] [place] [address] Medicare [id number] 2023 Medicare (Managed Care) CYNTHIA KEATING [id number] 2023 Medicaid [id number] 2023 Medicaid [id number] 2023 Private Health Insurance [id number] 2021 Medicare [id number] 2021 Unknown ANTHEM BLUE CROS S AND BLUE SHIELD ANTHEM MEDIBLUE HMO [id number] 2021-Present [phone] [address] [place] [address] O [id number] 2021 Unknown [id number] 2004 Medicare MEDICARE PART A B [id number] Unknown [id number] Unknown [id number] Unknown [id number] Unknown [id number] Unknown [id number] Unknown [id number] Unknown [id number] Social History Date Type Detail Facility Start: 08-23-2014 End: 01-14-2022 Tobacco smoking status NHIS Ex-smoker [facility] Start: 08-14-1960 End: 08-13-2014 History of tobacco use Current smoker [facility] Start: [birth year]-14-1960 End: 08-13-2014 History of tobacco use Cigarette Smoker [facility] Start: 08-23-2014 End: 11-20-2022 Cigarettes smoked current (pack per day) - Reported 1 [facility] Start: 08-23-2014 End: 01-14-2022 Tobacco use and exposure Smokeless tobacco non-user [facility] Start: 10-30-2021 End: 01-02-2024 Alcohol intake Current non-drinker of alcohol (finding) [facility] Start: 1940 Sex Assigned At Not on file [facility] Start: 12-09-2021 End: 12-19-2021 Exposure to SARS-CoV-2 (event) Not sure [facility] Start: 06-14-2022 History SDOH Alcohol Frequency 1 [facility] Start: 06-14-2022 History SDOH Social Connections Phone 5 [facility] Start: 06-14-2022 History SDOH Social Connections Membership 2 [facility] Start: 06-14-2022 History SDOH Social Connections Living 3 [facility] Start: 06-14-2022 History SDOH Physical Activity DPW 0 [facility] Start: 06-14-2022 History SDOH Stress 4 [facility] Start: 11-15-2022 End: 01-29-2023 Tobacco smoking status FLIS Unknown if ever smoked [facility] Start: 08-14-2014 None [facility] Start: 08-14-2014 Spouse/ Significant Other [facility] Start: 08-14-2014 Cigarettes [facility] Start: 1940 Sex Assigned At Female [facility] Start: 06-14-2022 End: 11-20-2022 Social connection and isolation panel [facility] Do you belong to any clubs or organizations such as taoism groups, unions, fraternal or athletic groups, or school groups? No [facility] Are you now , , , , never or living with a partner? [facility] How often to you hav e a drink containing alcohol? Never [facility] Average Number of Drinks Not on file [facility] Work Phone: How hard is it for y ou to pay for the very basics like food, housing, medical care, and heating Somewhat hard [facility] Do you feel stress - tense, restless, nervous, or anxious, or unable to sleep at night because your mind is troubled all the time - these days [OSQ] Rather much [facility] (I/We) worried elliot er (my/our) food would run out before (I/we) got money to buy more. Sometimes true [facility] The food that (I/we) bought just didn't last, and (I/we) didn't have money to get more. Never true [facility] Functional Status Date Assessment Result Facility 09-21-2014 Are you deaf, or do you have serious difficulty hearing No 09/21/2014 10:25 AM Sommer Castellano RPFT No [facility] 09-21-2014 Are you blind, or do you have serious difficulty seeing, even when wearing glasses No 09/21/2014 10:25 AM Sommer Casetllano RPFT No [facility] 09-21-2014 Do you have serious difficulty walking or climbing stairs Yes 09/21/2014 10:25 AM Sommer Castellano RPFT Yes [facility] 09-21-2014 Do you have difficul ty dressing or bathing No 09/21/2014 10:25 AM Sommer Castellano RPFT No [facility] 09-21-2014 Because of a physica l, mental, or emotional condition, do you have difficulty doing errands alone such as visiting a physician's office or shopping No 09/21/2014 10:25 AM EDT Sommer Prieto RPNILA No [facility] Mental Status Date Assessment Result Facility 01-29-2023 Cognitive function Level Of Cons ciousness Awake;Alert;Appropriate;Fol lows Commands [facility] Work Phone: 09-21-2014 Because of a physica l, mental, or emotional condition, do you have serious difficulty concentrating, remembering, or making decisions No 09/21/2014 10:25 AM EDT Sommer Prieto RPFT No [facility] Clinical Notes 10-30-2021 to 11-11-2024 Telephone Encounter - Abraham Donovan LPN - 11/11/2024 12:18 PM EDTTelephone Encounter - Abraham Donovan LPN - 11/11/2024 12:18 PM Shakeel Harris APRN.[facility] - 07/02/2024 1:50 PM EST Note [...] Donovan LPN November 11, 2024 12:18 PM [facility] 11-11-2024 Miscellaneous Notes Prescription Refill Information [...] 2024 12:18 PM documented in this encounter [facility] 09-27-2024 Telephone encounter Note The following approved medication requests have been transmitted electronically. Requested Prescriptions Signed Prescriptions Disp Refills metoprolol succinate ER (TOPROL XL) 100 mg 30 tablet 5 Sig: Take 1 tablet by mouth once daily. Authorizing Provider: DUSTIN HOANG MD [facility] 09-27-2024 Miscellaneous Notes The following approved [...] 2024 4:28 PM documented in this encounter [facility] 09-27-2024 Telephone encounter Note Prescription Refill [...] Merritt LPN September 27, 2024 4:28 PM [facility] 08-13-2024 Telephone encounter Note Prescription Refill [...] Thomas LPN August 13, 2024 10:57 AM [facility] 08-13-2024 Miscellaneous Notes Prescription Refill Information [...] 2024 10:57 AM documented in this encounter [facility] 07-14-2024 Telephone encounter Note The following approved medication requests have been transmitted electronically. Requested Prescriptions Signed Prescriptions Disp Refills omeprazole (PRILOSEC) 40 mg capsule 90 capsule 1 Sig: Take 1 capsule by mouth daily before breakfast. 1/2 hr before meal. Authorizing Provider: DUSTIN HOANG MD [facility] 07-14-2024 Miscellaneous Notes The following approved [...] 2024 7:35 AM documented in this encounter [facility] 07-14-2024 Telephone encounter Note Prescription Refill [...] Donovan LPN July 14, 2024 7:35 AM [facility] 07-12-2024 Telephone encounter Note Pt notified and verbalized understanding Samantha Meneses MA [facility] 07-12-2024 Miscellaneous Notes Pt notified and verbalized understanding Samantha Meneses MA Please let patient know her urine shows infection. I have sent in antibiotics. documented in this encounter [facility] 07-12-2024 Telephone encounter Note Please let patient know her urine shows infection. I have sent in antibiotics. [facility] 07-05-2024 Telephone encounter Note TC to patient who is agreeable to below. She will come in tomorrow, 07/06, to give urine sample to lab. CHIP Rueda [facility] 07-05-2024 Miscellaneous Notes TC to patient [...] labs are stable. documented in this encounter [facility] 07-05-2024 Telephone encounter Note I would like patient to come in and provide another urine sample to test for bacterial growth. [facility] 07-05-2024 Telephone encounter Note TC to patient who verbalized understanding of below. Patient states she has been having itching but denies burning/pain with urination, frequency, or odor. CHIP Rueda [facility] 07-05-2024 Telephone encounter Note Please let patient know her hgba1c is up slightly to 5.7. Also find out if she is having any urinary symptoms. Her other labs are stable. [facility] 07-02-2024 Note HNO ID: [id number] Author: SHAKEEL COLLINS APRN.CNP Service: ? Author [...] Smoke, vape, chews tobacco No Difficulty hearing [place], no hearing aids Difficulty seeing Wears glasses, has appt at eye doctor coming up Current Providers Specialists: I have reviewed specialist-related care of the patient in the medical record. Current care team: Patient Care Team: Dustin Hoang MD as PCP - General (Family Medicine) Shakeel Collins APRN.CNP as Monument Erector (Family Medicine) Mamie Sotelo PA-C as Monument Erector (Family Medicine) Medical/Family history review Reviewed and [...] mouth two times (more content not included)... [facility] 07-02-2024 History of Presen t [...] Smoke, vape, chews tobacco No Difficulty hearing [place], no hearing aids Difficulty seeing Wears glasses, has appt at eye doctor coming up Current Providers Specialists: I have reviewed specialist-related care of the patient in the medical record. Current care team: Patient Care Team: Dustin Hoang MD as PCP - General (Family Medicine) Shakeel Collins APRN.TRESTLE MAINTERNANCE LABORER as Monument Erector (Family Medicine) Mamie Sotelo PA-C as Monument Erector (Family Medicine) Medical/Family history review Reviewed and [...] Shakeel Collins APRN.LISA documented in this encounter [facility] 07-02-2024 Instructions Shakeel Collins APRN.CNP - [...] review all the medicines you take, even qanw-oaa-tdjzvfu medicines. As you get older, the way [...] certain medical conditions. documented in this encounter [facility] 06-30-2024 Telephone encounter Note The patient [...] Turner LPN June 30, 2024 11:58 AM [facility] 06-30-2024 Miscellaneous Notes The patient has [...] 2024 11:58 AM documented in this encounter [facility] 05-19-2024 Telephone encounter Note Prescription Refill [...] Donovan LPN May 19, 2024 1:41 PM [facility] 05-19-2024 Miscellaneous Notes Prescription Refill Information [...] 2024 1:41 PM documented in this encounter [facility] 03-23-2024 Note HNO ID: [id number] Author: CHARLIE BRADLEY MA Service: ? Author Type: Sweater Operator Type: Progress Notes Filed: 03/23/2024 15:15 Note Text: Scan on 03/22/2024 12:21 AM by Provider, External, PA-C: Consultation - Emergency Medicine Would you like patient to follow up? Charlie Bradley MA' [facility] 03-23-2024 History of Presen t illness Narrative Scan on 03/22/2024 12:21 AM by Provider, VÍCTOR Manley: Consultation - Emergency Medicine Would you like patient to follow up? Charlie Bradley MA' documented in this encounter [facility] 03-03-2024 Telephone encounter Note The following approved medication requests have been transmitted electronically. Requested Prescriptions Signed Prescriptions Disp Refills omeprazole (PRILOSEC) 40 mg capsule 90 capsule 1 Sig: Take 1 capsule by mouth daily before breakfast. 1/2 hr before meal. Authorizing Provider: DUSTIN HOANG MD [facility] 03-03-2024 Miscellaneous Notes The following approved [...] 2024 1:30 PM documented in this encounter [facility] 03-03-2024 Telephone encounter Note Prescription Refill [...] Donovan LPN March 03, 2024 1:30 PM [facility] 03-02-2024 Note HNO ID: [id number] Author: CHARLIE BRADLEY MA Service: ? Author Type: Sweater Operator Type: Progress Notes Filed: 03/02/2024 16:34 Note Text: Scan on 03/01/2024 9:48 PM by Sindhu Mcwilliams PA-C: X-ray Scan on 03/01/2024 9:51 PM by Sindhu Mcwilliams PA-C: X-ray Scan on 03/01/2024 10:00 PM by Sindhu Mcwilliams PA-C: X-ray Charlie Bradley MA [facility] 03-02-2024 History of Presen t illness Narrative Scan on 03/01/2024 9:48 PM by Sindhu Mcwilliams PA-C: X-ray Scan on 03/01/2024 9:51 PM by Sindhu Mcwilliams PA-C: X-ray Scan on 03/01/2024 10:00 PM by Sindhu Mcwilliams PA-C: X-ray Charlie Bradley MA documented in this encounter [facility] 02-18-2024 Telephone encounter Note Prescription Refill [...] Donovan LPN February 18, 2024 12:17 PM [facility] 02-18-2024 Miscellaneous Notes Prescription Refill Information [...] 2024 12:17 PM documented in this encounter [facility] 02-18-2024 Telephone encounter Note Prescription Refill [...] Mabry LPN February 18, 2024 11:05 AM [facility] 02-18-2024 Miscellaneous Notes Prescription Refill Information [...] 2024 11:05 AM documented in this encounter [facility] 01-09-2024 Telephone encounter Note Pt called and is notified of providers results. Pt voices understanding. Alma Delia Irvin RN [facility] 01-09-2024 Miscellaneous Notes Pt called and is notified of providers results. Pt voices understanding. Alma Delia Irvin RN Let patient know stress test was normal. Scan on 01/08/2024 3:33 PM by Provider, VÍCTOR Manley: Neurology Please review EMG results. Charlie Bradley MA documented in this encounter [facility] 01-09-2024 Telephone encounter Note Let patient know stress test was normal. [facility] 01-09-2024 Telephone encounter Note Scan on 01/08/2024 3:33 PM by Provider, VÍCTOR Manley: Neurology Please review EMG results. Charlie Bradley MA [facility] 12-17-2023 Telephone encounter Note Patient notified of results. Patient verbalizes understanding. Annie Zamora RN [facility] 12-17-2023 Miscellaneous Notes Patient notified of results. Patient verbalizes understanding. Annie Zamora RN Left message for patient to contact office. Charlie Bradley MA Let patient know the US of her heart was ok. documented in this encounter [facility] 12-17-2023 Telephone encounter Note Left message for patient to contact office. Charlie Bradley MA [facility] 12-16-2023 Telephone encounter Note Let patient know the US of her heart was ok. [facility] 12-16-2023 Telephone encounter Note Spoke with pt and information listed below given. Pt verbalizes understanding. Jenny Turner LPN [facility] 12-16-2023 Miscellaneous Notes Spoke with pt and information listed below given. Pt verbalizes understanding. Jenny Turner LPN Left message to return call Let patient know her walking test showed her oxygenation on room air was normal. documented in this encounter [facility] 12-16-2023 Telephone encounter Note Left message to return call [facility] 12-16-2023 Telephone encounter Note Let patient know her walking test showed her oxygenation on room air was normal. [facility] 12-16-2023 Note HNO ID: [id number] Author: BRADLEY CONNOR RRT Service: ? Author [...] Pt does not have a fast pace. [facility] 12-16-2023 Procedure note [facility] [...] Pt does not have a fast pace. [facility] 12-16-2023 Procedure note Associated [facility] er(s): [...] a fast pace. documented in this encounter [facility] 12-16-2023 Note HNO ID: [id number] Author: BRADLEY CONNOR RRT Service: ? Author Type: Registered Resp Therapist Type: Progress Notes Filed: 12/16/2023 14:32 Note Text: PULM FUNCTION: Provider: Dustin Hoang MD Oximetry - Ambulation: 1 [facility] 12-16-2023 History of Presen t illness Narrative PULM FUNCTION: Provider: Dustin Hoang MD Oximetry - Ambulation: 1 documented in this encounter [facility] 12-03-2023 Telephone encounter Note Faxed order/Demo for [facility] Nuclear stress test. Referral placed. Charlie Bradley MA [facility] 12-03-2023 Miscellaneous Notes Faxed order/Demo for [facility] Nuclear stress test. Referral placed. Charlie Bradley MA documented in this encounter [facility] 11-28-2023 History of Presen t illness [...] were ok. Patient was to schedule a [place] Cardiac stress test and ECHO; CT of [...] if stress test can be done at [facility] since the one through us is not till January. 4. Dizziness - ICD9: 780.4, ICD10: R42 - awaiting carotid US. F/u 6 months extensive exam Forms for [facility] completed. I spent a total of 40 minutes on the date of the service which included preparing to see the patient, [id number]-[id number] patient care, completing clinical documentation, performing a medically appropriate examination, counseling and educating the patient/family/caregiver and ordering medications, tests, or procedures. Dustin Hoang MD documented in this encounter [facility] 11-28-2023 Note HNO ID: [id number] Author: DUSTIN HOANG MD Service: ? Author [...] Drug use: No (more content not included)... [facility] 11-25-2023 Telephone encounter Note Pt notified. Brunilda Kinsey MA [facility] 11-25-2023 Miscellaneous Notes Pt notified. Brunilda Kinsey MA Let patient know her breathing test was ok and the chest x-ray was ok. documented in this encounter [facility] 11-25-2023 Telephone encounter Note Let patient know her breathing test was ok and the chest x-ray was ok. [facility] 11-25-2023 Telephone encounter Note Patient returns call and reports no burning/pain, urgency, or fever. Reports back pain per her usual and frequency but not any different than her usual. Takes [facility] for this. Dayna Osorio RN [facility] 11-25-2023 Miscellaneous Notes Patient returns call [...] having urinary symptoms. documented in this encounter [facility] 11-25-2023 Telephone encounter Note Call placed to patient and message left to call back to triage nurse. Please find out if patient is having urinary symptoms. Dayna Osorio RN [facility] 11-25-2023 Telephone encounter Note Please find out if patient is having urinary symptoms. [facility] Work Phone: 11-24-2023 Telephone encounter Note Pt's granddaughter Meghan calls along with pt for results. Notified of results. Maritza Pennington LPN [facility] 11-24-2023 Miscellaneous Notes Pt's granddaughter Meghan calls along with pt for results. Notified of results. Maritza Pennington LPN Left message for pt to contact office. Abraham Donovan LPN Let patient know that her ct brain was normal. documented in this encounter [facility] 11-24-2023 Telephone encounter Note Left message for pt to contact office. Abraham Donovan LPN [facility] 11-24-2023 Note HNO ID: [id number] Author: SOMMER PRIETO RPFT Service: ? Author Type: Respiratory Therapist Type: Progress Notes Filed: 11/24/2023 13:19 Note Text: PULM FUNCTION: Provider: Dustin Hoang MD Assisting Tech: Sommer Prieto RPFT Spirometry w/BD: 1 [facility] 11-24-2023 History of Presen t illness Narrative PULM FUNCTION: Provider: Dustin Hoang MD Assisting Tech: Sommer Prieto RPFT Spirometry w/BD: 1 documented in this encounter [facility] 11-24-2023 Telephone encounter Note Let patient know that her ct brain was normal. [facility] 11-24-2023 History of Presen t illness [...] PATIENT PRESENTS WITH AN IMPLANTABLE OR ATTACHED STEEL RULE INSPECTOR: No RADIOLOGY DEPARTMENT: CT; Exam(s) Completed: Brain PERIPHERAL IV DATA: Not applicable SIGNED BY: RT Alyssa(Marilyn) November 24, 2023 4:14 PM documented in this encounter [facility] 11-24-2023 Note HNO ID: [id number] Author: JOYCE CARR RT(R) Service: ? Author Type: Criminal Investigator Type: Progress Notes Filed: 11/24/2023 16:15 Note [...] PATIENT PRESENTS WITH AN IMPLANTABLE OR ATTACHED STEEL RULE INSPECTOR: No RADIOLOGY DEPARTMENT: CT; Exam(s) Completed: Brain PERIPHERAL IV DATA: Not applicable SIGNED BY: RT Alyssa(Marilyn) November 24, 2023 4:14 PM [facility] 11-21-2023 History of Presen t [...] PATIENT PRESENTS WITH AN IMPLANTABLE OR ATTACHED STEEL RULE INSPECTOR: No RADIOLOGY DEPARTMENT: General X-ray: Exam(s) Completed: Chest X-Ray PERIPHERAL IV DATA: Not applicable SIGNED BY: RT Patrice(R) November 21, 2023 1:14 PM documented in this encounter [facility] 11-21-2023 Note HNO ID: [id number] Author: AKIL MORALES RT(R) Service: Radiology Author [...] PATIENT PRESENTS WITH AN IMPLANTABLE OR ATTACHED STEEL RULE INSPECTOR: No RADIOLOGY DEPARTMENT: General X-ray: Exam(s) Completed: Chest X-Ray PERIPHERAL IV DATA: Not applicable SIGNED BY: RT Patrice(R) November 21, 2023 1:14 PM [facility] 11-21-2023 Instructions Dustin Hoang MD - 11/21/2023 11:26 AM EDT Please bring in copies of your power of civil rights attorney for health care and living will. documented in this encounter [facility] 11-21-2023 Note HNO ID: [id number] Author: DUSTIN HOANG MD Service: ? Author [...] 60 Resp 18 (more content not included)... [facility] 11-21-2023 History of Presen t [...] Abs Lymph 1.00 - 4.00 k/uL 1.45 [place]% % 10.5 Abs [place] <0.87 k/uL 0.62 Eosin% % 3.6 Abs Eosin <0.46 k/uL 0.21 Baso% % 0.5 Abs Baso <0.11 k/uL 0.03 Immature Gran % % 0.2 IMMATURE GRANS (ABS) <0.10 k/uL <0.03 NRBC /100 WBC 0.0 Absolute nRBC <0.01 k/uL <0.01 DTYPE Auto Color Yellow Yellow Clarity Clear Clear Glucose, Urine Negative Negative Bilirubin, Urine Negative Negative Ketones, Urine Negative Negative Specific [place], Ur 1.005 - 1.030 1.012 Hemoglobin/Blood,Ur Negative [...] which included preparing to see the patient, [id number] patient care, completing clinical documentation, performing a medically appropriate examination, counseling and educating the patient/family/caregiver and ordering medications, tests, or procedures. Patient was asked at end of visit if they had any questions or input regarding the plan of care we had discussed. Dustin Hoang MD documented in this encounter [facility] 11-18-2023 Telephone encounter Note The following approved medication requests have been transmitted electronically. Requested Prescriptions Signed Prescriptions Disp Refills lisinopril (ZESTRIL) 40 mg tablet 180 tablet 1 Sig: Take 1 tablet by mouth two times a day. Authorizing Provider: DUSTIN HOANG MD [facility] 11-18-2023 Miscellaneous Notes The following approved [...] Britany Bojorquez MA. documented in this encounter [facility] 11-18-2023 Telephone encounter Note Patient has [...] Please advise. Thank you. Britany Bojorquez MA. [facility] 09-30-2023 Telephone encounter Note Patient has [...] Please advise. Thank you. Chelsey Faust LPN. [facility] 09-30-2023 Miscellaneous Notes Patient has been [...] Chelsey Faust LPN. documented in this encounter [facility] 08-13-2023 Miscellaneous Notes Patient has been [...] Abraham Donovan LPN. documented in this encounter [facility] 07-30-2023 Miscellaneous Notes Rx was refilled 07/29/23 Qty: 90 with 1 refill. Pt notified via . Abraham Donovan LPN documented in this encounter [facility] 07-29-2023 Miscellaneous Notes Patient has been [...] Kandy Hopkins Pss documented in this encounter [facility] 04-21-2023 History of Presen t illness [...] 2023 1:31 PM documented in this encounter [facility] 04-21-2023 History of Presen t illness [...] Monica Tan PA-C documented in this encounter [facility] 04-07-2023 Miscellaneous Notes Pts daughter called [...] insurance. It was $11-12 at [facility] for 30 pills. documented in this encounter [facility] 04-03-2023 Miscellaneous Notes The following approved [...] patient. Elidia Hagen documented in this encounter [facility] 04-03-2023 Miscellaneous Notes Patient and daughter, Gabi, reports patient is out of metoprolol and [facility] tells them they need new Rx. They also report patient has been out of doxazosin for 4 days, and [facility] tells them they need a new Rx. This nurse spoke with pharmacist at [facility], who reports they never received the doxazosin 2 mg take one daily #90 1 refill Rx on 01-16-23. Given verbal to pharmacist. Pharmacist reports patient is out of refills on metoprolol and will need new Rx. Asking pcp to send new Rx for metoprolol. Looks like it was pended in another encounter. documented in this encounter [facility] 03-20-2023 Miscellaneous Notes FYI: Grand daughter [...] Dayna Osorio RN documented in this encounter [facility] 03-20-2023 Miscellaneous Notes Refilled Doxazosin 01/16/23 with 90 tabs and 1 refill to [facility]. Advised via message to contact pharmacy. Samantha Luo MA documented in this encounter [facility] 03-20-2023 Miscellaneous Notes JOSEPH: 11/20/22 with PCP NOV: 05/22/23-medicare wellness with DK Last refill: Omeprazole: 07/25/22 With 30 and 5 refills Tolterodine: 08/29/22 With 30 and 5 refills Refill requesting 90 day supply. Pended as requested. Samantha Luo MA documented in this encounter [facility] 01-31-2023 Miscellaneous Notes Call to granddaughterMeghan notified her of message below. Verbalized understanding. Wanted PCP to know pt was taken by squad to [facility] ED on 01/29 was not admitted. Scanned documented routed to PCP in abstract. Shantelle Shankar Ma Let patient know stress test was negative for blood flow issues. Scan on 01/29/2023 2:41 PM by Provider, External, PACarlosC: Stress Test Please review results. Charlie Bradley MA documented in this encounter [facility] 01-29-2023 Miscellaneous Notes Noted and agree. Granddaughter (Meghan) calls to report that patient went to [facility] this morning for a stress test [...] Dayna Osorio, RN documented in this encounter [facility] 01-16-2023 Miscellaneous Notes Patient has been [...] Yeni Thomas LPN documented in this encounter [facility] 01-10-2023 Miscellaneous Notes Spoke to Meghan wh verbalized understanding Britany Bojorquez Ma Let daughter know yes Nidhi would need to travel to see the occupational medicine specialist. The closest facility [facility] be [facility]. Patient's granddaughter notified and voiced understanding. We [...] it somewhere else? documented in this encounter [facility] 11-29-2022 History of Presen t illness Narrative Scan on 11/25/2022 8:21 AM by External Provider, PA-C: Miscellaneous Lab Scan on 11/26/2022 6:37 PM by External Provider, PA-C: Miscellaneous Lab Scan on 11/28/2022 12:34 AM by External Provider, PA-C: Miscellaneous Lab Charlie Bradley MA documented in this encounter [facility] 11-22-2022 Miscellaneous Notes Spoke with Meghan [...] a day helps. documented in this encounter [facility] 11-21-2022 History of Presen t illness Narrative Scan on 11/18/2022 5:37 PM by External Provider, VÍCTOR: Miscellaneous Lab documented in this encounter [facility] 11-20-2022 Instructions Dustin oHang MD - 11/20/2022 10:22 AM EDT Please bring in copies of your power of civil rights attorney for health care and living will. Please get your second shingles vaccine at [facility] and let Dr. Hoang know. Please get labs and urine test done on or after 05/09/2023 prior to your next visit. documented in this encounter [facility] 11-20-2022 History of Presen t illness [...] Abs Lymph 1.00 - 4.00 k/uL 1.85 Throckmorton% % 8.6 Abs Throckmorton <0.87 k/uL 0.59 Eosin% % 3.2 Abs [...] MG/5 ML INTRAVENOUS SYRINGE - INSERT IV (OH,OH) - IV DISCONTINUE - NM CARDIAC PERF STRESS/PHARM - REGADENOSON 0.4 MG/5 ML INTRAVENOUS SYRINGE - INSERT IV (OH,IL) - IV DISCONTINUE 7. SOB (shortness of breath) - ICD9: 786.05, ICD10: R06.02 Check - NM CARDIAC PERF STRESS/PHARM - REGADENOSON 0.4 MG/5 ML INTRAVENOUS SYRINGE - INSERT IV (OH,IL) - IV DISCONTINUE - [employer]RI[employer]IAN OF [employer] EVENT MONITOR - CBC + DIFF - NM CARDIAC PERF STRESS/PHARM - REGADENOSON 0.4 MG/5 ML INTRAVENOUS SYRINGE - INSERT IV (OH,IL) - IV DISCONTINUE 8. Palpitations - ICD9: 785.1, ICD10: R00.2 Check - [employer] EVENT MONITOR - BASIC METABOLIC PNL - TSH BLD - T4 FREE/FREE THYROX - NM CARDIAC PERF STRESS/PHARM - REGADENOSON 0.4 MG/5 ML INTRAVENOUS SYRINGE - INSERT IV (OH,IL) - IV DISCONTINUE 9. Encounter for immunization - ICD9: V03.89, ICD10: Z23 - [employer]visity-LOANZ COVID-19 BIVALENT VACCINE, AGE 12+ YR 10. Advance directive discussed with patient - ICD9: V65.49, ICD10: Z71.89 - patient to bring in copies. 12. Stage 3a chronic kidney disease (HCC) - ICD9: 585.3, ICD10: N18.31 - cont current Tx and await labs. F/u 6 months extensive check CMP, Lipid, UA, A1c, CBC, B12, Mg prior Dustin Hoang MD documented in this encounter [facility] 11-19-2022 History of Presen t illness Narrative Scan on 11/15/2022 3:59 PM by External Provider, PA-C: Chemistry Scan on 11/18/2022 5:37 PM by External Provider, PACarlosC: Miscellaneous Lab Charlie Bradley MA documented in this encounter [facility] 09-20-2022 Miscellaneous Notes Patient was notified Britany Bojorquez Ma Please let patient know that her blood work shows some mild dehydration I would like her to increase her water intake and repeat the labs on Friday. documented in this encounter [facility] 08-29-2022 Miscellaneous Notes Patient has been [...] Yeni Thomas LPN documented in this encounter [facility] 08-21-2022 History of Presen t illness Narrative Scan on 08/16/2022 9:27 AM by External Provider: TONNY Bradley MA documented in this encounter [facility] 08-19-2022 Miscellaneous Notes Faxed. Charlie Bradley [...] her to Gastro. documented in this encounter [facility] 08-16-2022 Miscellaneous Notes Patient and granddaughter notified and verbalized understanding Samantha Meneses Cma Please let patient know that her blood count is normal. documented in this encounter [facility] 08-15-2022 Miscellaneous Notes Addended by: SHAKEEL COLLINS on: 08/15/2022 11:30 AM Modules accepted: Orders documented in this encounter [facility] 08-15-2022 Instructions Shakeel Collins APRN.CNP - 08/15/2022 11:02 AM EST Complete lab work Start increased dose of doxazosin Follow up in 4 weeks for Bp check. documented in this encounter [facility] 08-15-2022 History of Presen t illness [...] Shakeel Collins APRN.LISA documented in this encounter [facility] 08-15-2022 History of Presen t illness [...] TIME: 2:53 PM documented in this encounter [facility] 08-01-2022 Miscellaneous Notes Patient returned call [...] findings. Orders placed. documented in this encounter [facility] 07-31-2022 History of Presen t illness Narrative Scan on 07/30/2022 3:30 PM by External Provider: Consultation - Orthopedics Charlie Bradley MA documented in this encounter [facility] 07-30-2022 History of Presen t illness [...] 2022 10:17 AM documented in this encounter [facility] 07-26-2022 Miscellaneous Notes Pts granddaughter called [...] progressing onto diabetes. documented in this encounter [facility] 07-25-2022 History of Presen t illness [...] which included preparing to see the patient, [id number] patient care, completing clinical documentation, performing a medically appropriate examination, counseling and educating the patient/family/caregiver and ordering medications, tests, or procedures. Dustin Hoang MD documented in this encounter [facility] 04-25-2022 Miscellaneous Notes Last office visit: 12/19/21 F/u scheduled: 06/21/22 Brunilda Kinsey Ma documented in this encounter [facility] 03-29-2022 Miscellaneous Notes The following approved [...] Last refill: 12/2021 documented in this encounter [facility] 03-17-2022 Miscellaneous Notes The following approved medication requests have been transmitted electronically. Requested Prescriptions Signed Prescriptions Disp Refills doxazosin (CARDURA) 1 mg tablet 30 tablet 5 Sig: Take 1 tablet by mouth once daily. Dustin Hoang MD documented in this encounter [facility] 02-26-2022 Miscellaneous Notes TC to Meghan, [...] up to date documented in this encounter [facility] 02-26-2022 History of Presen t illness [...] up to date documented in this encounter [facility] 02-13-2022 Miscellaneous Notes The following approved [...] the chest discomfort. documented in this encounter [facility] 02-13-2022 History of Presen t illness [...] the chest discomfort. documented in this encounter [facility] 01-15-2022 Miscellaneous Notes Pt's EC Meghan [...] Shelley Taveras LPN documented in this encounter [facility] 01-09-2022 History of Presen t illness [...] Shelley Taveras LPN documented in this encounter [facility] 01-07-2022 Miscellaneous Notes Patient notified of results, verbalizes understanding of instructions. Samantha Luo MA Let patient know her repeat calcium level was ok but her parathyroid hormone level is slightly above normal at 70 (normal is 15-65). Would like to repeat both labs and Vit D level in a month. Orders placed. documented in this encounter [facility] 12-24-2021 Miscellaneous Notes Phoned patient and [...] week. Order placed. documented in this encounter [facility] 12-19-2021 Nurse Note BP documented in this encounter [facility] 12-19-2021 Instructions Dustin Hoang MD - 12/19/2021 10:24 AM EDT Consider getting the shingrix vaccine for the prevention of shingles from a local pharmacy Please bring in copies of living will and durable power of civil rights attorney documented in this encounter [facility] 12-19-2021 History of Presen t illness [...] Abs Lymph 1.00 - 4.00 k/uL 1.83 Throckmorton% % 9.5 Abs Throckmorton <0.87 k/uL 0.63 Eosin% % 9.4 Abs [...] diet of 1000 mg/day for under 50, 3817-3594 mg/day for 50+ - Follow up for [...] which included preparing to see the patient, [id number] patient care, completing clinical documentation, performing a medically appropriate examination, counseling and educating the patient/family/caregiver and ordering medications, tests, or procedures. Dustin Hoang MD documented in this encounter [facility] 11-09-2021 Miscellaneous Notes Patient phones requesting [...] Marjorie Mabry LPN documented in this encounter [facility] 11-08-2021 Miscellaneous Notes Patient has been identified by name and date of : Yes Pending Prescriptions Disp Refills LISINOPRIL 40 MG TABLET 135 tablet 1 Sig: Take 1.5 tablets by mouth once daily. JOHANA: No Lisinopril 04/20/2021 qty 135 w/1 r/f Last OV 06/19/2021 Labs 06/19/2021 Next OV 12/19/2021 RX INSTRUCTIONS: Eusebia Turner LPN documented in this encounter [facility] 11-03-2021 Miscellaneous Notes Phone call placed detailed message left on (Meghan's identified voicemail, listed on chart) (see prior provider encounter) Eusebia Turner LPN documented in this encounter [facility] 11-02-2021 Miscellaneous Notes I spoke to [...] Turner LPN ----- Message from Iram Leon APRN.TRESTLE MAINTERNANCE LABORER sent at 11/02/2021 4:23 PM EDT ----- Please advise patient the wound culture did not grow any bacteria. Herpes and shingles test was negative. Iram Leon APRN.TRESTLE MAINTERNANCE LABORER documented in this encounter [facility] 10-31-2021 Miscellaneous Notes Spoke with pt and information listed below given. Pt verbalizes understanding. Jenny Turner LPN Left message with patient to return call. Negative for herpes and no growth so far on the wound culture. Will notify when the final culture come back. Thank you. If symptoms worsen follow up with PCP. documented in this encounter [facility] 10-30-2021 History of Presen t illness Narrative Images from the original note were not included. This note was created using Perkleriter. Subjective Nidhi Núñez is a 81 year old female. HPI Patient presents with a rash on her face over the past 3 days. Is on her right cheek and neck. She denies any eye pain or redness. No drainage. Starting to weep and crusts. She did put hand public welfare director on her face trying to dry it [...] Flores Peters PA-C documented in this encounter [facility] Evaluation note Diagnosis Facial rash- Primary Rash and other nonspecific skin eruption [facility] Diagnosis Mixed hyperlipidemia Essential hypertension Unspecified essential hypertension [facility] Diagnosis Essential hypertension Unspecified essential hypertension [facility] Medicare annual wellness visit, [...] will in place [facility] Diagnosis Hypercalcemia- Primary Low serum vitamin B12 [facility] Diagnosis Hypercalcemia- Primary [facility] Diagnosis Essential hypertension- Primary Unspecified essential hypertension [facility] Diagnosis Essential hypertension Unspecified essential hypertension [facility] Diagnosis Essential hypertension- Primary Unspecified essential hypertension [facility] Diagnosis Essential hypertension- Primary Unspecified essential hypertension [facility] Diagnosis Overactive bladder Hypertonicity of bladder [facility] Diagnosis Mixed hyperlipidemia Essential hypertension Unspecified essential hypertension [facility] Diagnosis Epigastric pain- Primary Abdominal [...] and musculoskeletal systems documented in this encounter [facility] note* Diagnosis Hydronephrosis, unspecified hydronephrosis type- Primary Dilation of biliary tract Other specified disorders of biliary tract [facility]* Diagnosis Chest pain, unspecified type- Primary Essential hypertension Unspecified essential hypertension documented in this encounter [facility] note* Diagnosis Epigastric pain- Primary Abdominal pain, epigastric documented in this encounter [facility] note* Diagnosis Overactive bladder Hypertonicity of bladder [facility]* Diagnosis Elevated serum creatinine- Primary Other nonspecific findings on examination of blood documented in this encounter [facility] note* Diagnosis Onset Date Resolution Status Bloating chronic [facility] Work Phone: Evaluation note* Diagnosis Essential [...] kidney disease (HCC) [facility] Diagnosis Essential hypertension Unspecified essential hypertension [facility] Diagnosis Essential hypertension Unspecified essential hypertension [facility] Diagnosis Overactive bladder Hypertonicity of bladder documented in this encounter [facility] note* Diagnosis Essential hypertension Unspecified essential hypertension [facility]* Diagnosis Hydronephrosis, unspecified hydronephrosis type Dilation of biliary tract Other specified disorders of biliary tract documented in this encounter [facility] note* Diagnosis Epigastric pain Abdominal pain, epigastric [facility]* Diagnosis Rash- Primary Rash and other nonspecific skin eruption Acute cough [facility] Diagnosis Mixed hyperlipidemia [facility] Diagnosis Mixed hyperlipidemia [facility] Diagnosis Essential hypertension Unspecified essential hypertension [facility] Diagnosis Overactive bladder Hypertonicity of bladder [facility] Diagnosis Essential hypertension Unspecified essential hypertension [facility]* Diagnosis MONTGOMERY (dyspnea on exertion) Other dyspnea and respiratory abnormality Decreased stamina Other malaise and fatigue Ex-smoker Personal history of tobacco use, presenting hazards to health [facility]* Diagnosis Essential hypertension- Primary Unspecified [...] unspecified headache type [facility]* Diagnosis Ataxia Lack of coordination Headache, unspecified headache type [facility] Diagnosis Essential hypertension- Primary Unspecified essential hypertension MONTGOMERY (dyspnea on exertion) Other dyspnea and respiratory abnormality Chest pain, unspecified type Dizziness Dizziness and giddiness [facility]* Diagnosis MONTGOMERY (dyspnea on exertion)- Primary Other dyspnea and respiratory abnormality [facility]* Diagnosis Chest pressure Other chest pain MONTGOMERY (dyspnea on exertion) Other dyspnea and respiratory abnormality Decreased stamina Other malaise and fatigue Ex-smoker Personal history of tobacco use, presenting hazards to health [facility]* Diagnosis Overactive bladder Hypertonicity of bladder [facility]* Diagnosis Essential hypertension Unspecified essential hypertension documented in this encounter [facility] note* Diagnosis Acute cough documented in this encounter [facility] note* Diagnosis Essential hypertension Unspecified essential hypertension documented in this encounter [facility] note* Diagnosis Essential hypertension Unspecified essential hypertension Mixed hyperlipidemia documented in this encounter [facility] note* Diagnosis Advance directive discussed with patient- Primary Other specified counseling Screening for depression Encounter for screening examination for other mental health and behavioral disorders Medicare annual wellness visit, subsequent Routine general medical examination at a [facility] care facility Seasonal allergies Allergic rhinitis, cause unspecified Essential hypertension Unspecified essential hypertension Mixed hyperlipidemia Overactive bladder Hypertonicity of bladder Elevated hemoglobin A1c Other abnormal blood chemistry Stage 3a chronic kidney disease (HCC) Low serum vitamin B12 Gastroesophageal reflux disease without esophagitis Esophageal reflux PAC (premature atrial contraction) Supraventricular premature beats documented in this encounter [facility] note* Diagnosis Abnormal urinalysis- Primary Other nonspecific finding on examination of urine documented in this encounter [facility] note* Diagnosis Abnormal urinalysis- Primary Other nonspecific finding on examination of urine Urinary tract infection without hematuria, site unspecified documented in this encounter [facility] note* Diagnosis Overactive bladder Hypertonicity of bladder Essential hypertension Unspecified essential hypertension documented in this encounter [facility] note* Diagnosis Essential hypertension Unspecified essential hypertension documented in this encounter [facility] for referral (narrative)* Diagnostic Procedure Only (Routine) - Authorized Specialty Diagnoses / Procedures Referred By Royal celis Referred To Contact US IMAGING Diagnoses Epigastric pain Procedures US ABD RT UPPER QUADRANT US ABDOMINAL REAL TIME W/IMAGE LIMITED Dustin Hoang MD [address] [place] [id number] [facility] Referral ID Status Reason Start Date Expiration Date Visits Requested Visits Authorized [id number] Authorized Auto-Generat ed Referral 07/25/2022 08/24/2023 1 1 * Consult, Test, Treat (Routine) - Pending Review Specialty Diagnoses / Procedures Referred By Royal celis Referred To Contact Orthopedics Diagnoses Lumbar pain Thoracic spine pain Numbness and tingling of right leg Balance problems Procedures CONSULT TO ORTHOPAEDICS OFFICE/OUTPATIENT [facility] 60-74 MINUTES Dustin Hoang MD [address] [place] [address] Referral ID Status Reason Start Date Expiration Date Visits Requested Visits Authorized [id number] Pending Review PCP Requested Referral 07/25/2022 07/25/2023 1 1 [facility] for referral (narrative)* Outpatient Procedure (Routine) - Pending Review Specialty Diagnoses / Procedures [facility] Diagnoses Chest pain, unspecified type Procedures ECG COMPLETE ECG ROUTINE ECG W/LEAST 12 LDS W/I&R Shakeel Collins APRN.CNP [address] [place] [address] [facility] [place] [address] Referral ID Status Reason Start Date Expiration Date Visits Requested Visits Authorized [id number] Pending Review Auto-Generat ed Referral 08/15/2022 08/15/2023 1 1 [facility] for referral (narrative)* Diagnostic Procedure Only (Urgent) - Authorized Specialty Diagnoses / Procedures [facility] Referred To Contact MOLECULAR & FUNCTIONAL IMAGING Diagnoses Angina pectoris (HCC) SOB (shortness of breath) Palpitations Procedures NM CARDIAC PERF STRESS/PHARM MYOCARDIAL SPECT MULTIPLE STUDIES Dustin Hoang MD [address] [place] [id number] [facility] [address] [place] [address] Referral ID Status Reason Start Date Expiration Date Visits Requested Visits Authorized [id number] Authorized Auto-Generat ed Referral 11/20/2022 12/20/2023 1 1 [facility] for referral (narrative)* Diagnostic Procedure Only (Routine) - Closed Specialty Diagnoses / Procedures [facility] Referred To Contact US IMAGING Diagnoses Epigastric pain Procedures US ABD RT UPPER QUADRANT US ABDOMINAL REAL TIME W/IMAGE LIMITED Dustin Hoang MD [address] [place] [address] [place] [address] Referral ID Status Reason Start Date Expiration Date V isits Requested Visits Authorized [id number] Closed Auto-Generate d Referral 07/25/2022 08/24/2023 1 1 [facility] for referral (narrative)* Outpatient Procedure (Routine) - Authorized Specialty Diagnoses / Procedures Referred By Royal t Referred To Contact [facility] Diagnoses Dizziness Procedures US CAROTID ARTERIES [facility] DUPLEX SCAN EXTRACRANIAL ART COMPL BI STUDY Dustin Hoang MD [address] [place] [address] [facility] [place] [address] [place] [id number] Referral ID Status Reason Start Date Expiration Date Visits Requested Visits Authorized [id number] Authorized Auto-Generat ed Referral 11/21/2023 11/20/2024 1 1 * MRI/CT (Routine) - Closed Specialty Diagnoses / Procedures Referred By Royal Referred To Contact CT IMAGING Diagnoses Ataxia Headache, unspecified headache type Procedures CT BRAIN WO IVCON CT HEAD/BRAIN W/O CONTRAST MATERIAL Dustin Hoang MD [address] [place] [address] Ct Imaging [id number] Referral ID Status Reason Start Date Expiration Date V isits Requested Visits Authorized [id number] Closed Auto-Generat ed Referral Patient Cleared - [...] SPECT MULTIPLE STUDIES Dustin Hoang MD [address] [place] [address] Molecular & Functional Imaging [address] [place] [id number] Referral ID Status Reason Start Date Expiration Date Visits Requested Visits Authorized [id number] Authorized Auto-Generat ed Referral 11/21/2023 12/20/2024 1 1 * Outpatient Procedure (Routine) - Pending Review Specialty Diagnoses / Procedures [facility] [place] Diagnoses Chest pressure MONTGOMERY (dyspnea on exertion) Procedures ECG COMPLETE ECG ROUTINE ECG W/LEAST 12 LDS W/I&R Dustin Hoang MD [address] [place] [id number] [facility] [address] [address] Referral ID Status Reason Start Date Expiration Date Visits Requested Visits Authorized [id number] Pending Review Auto-Generat ed Referral 11/21/2023 11/20/2024 1 1 * Outpatient Procedure (Routine) - Closed Specialty Diagnoses / Procedures [facility] Diagnoses MONTGOMERY (dyspnea on exertion) Decreased stamina Ex-smoker Procedures SPIROMETRY - BASELINE AND POST DILATOR BRNCDILAT RSPSE SPMTRY PRE&POST-BRNCDILAT ADMN Dustin Hoang MD [address] [place] [id number] [facility] [address] [place] [id number] Referral ID Status Reason Start Date Expiration Date V isits Requested Visits Authorized [id number] Closed Auto-Generate d Referral 11/21/2023 12/20/2024 1 1 * Outpatient Procedure (Routine) - Pending Review Specialty Diagnoses / Procedures Referred By [facility]ac t Referred To [facility] Diagnoses Chest pressure MONTGOMERY (dyspnea on exertion) Decreased stamina Procedures ECHO ECHO TTHRC R-T 2D W/WOM-MODE COMPL SPEC&COLR D Dustin Hoang MD [address] [place] [address] [facility] [address] [place] [id number] Referral ID Status Reason Start Date Expiration Date Visits Requested Visits Authorized [id number] Pending Review Auto-Generat ed Referral 11/21/2023 11/20/2024 1 1 [facility] Procedure (Routine) - Authorized Specialty Diagnoses / Procedures Referred By Contac t Referred To Contact [facility] Diagnoses MNOTGOMERY (dyspnea on exertion) Procedures OXIMETRY WITH AMBULATION NONINVASIVE EAR/PULSE [place] [address] [place] [phone] [facility] [address] [place] [address] Referral ID Status Reason Start Date Expiration Date Visits Requested Visits Authorized [id number] Authorized Auto-Generat ed Referral 11/28/2023 12/27/2024 1 1 [facility] Reason for Referral Specialty Diagnoses / Procedures Referred By Contac t Referred To Contact CT IMAGING Diagnoses Hydronephrosis, unspecified hydronephrosis type Dilation of biliary tract Procedures CT ABDOMEN W IVCON CT ABDOMEN W/CONTRAST Dustin Hoang MD [facility] [place] [address] Ct Imaging Referral ID Status Reason Start Date Expiration Date Visits Requested Visits Authorized [id number] Authorized Auto-Generat ed Referral 08/01/2022 08/31/2023 1 1 Specialty Diagnoses / Procedures Referred By Contac t Referred To Contact Gastroenterology Diagnoses Epigastric pain Procedures CONSULT TO GASTROENTEROLOGY OFFICE/OUTPATIENT NEW HIGH MDM 60-74 MINUTES Dustin Hoang MD [address] [place] [address] Referral ID Status Reason Start Date Expiration Date Visits Requested Visits Authorized [id number] Pending Review PCP Requested Referral 08/17/2022 08/17/2023 1 1 Specialty Diagnoses / Procedures Referred By Royal celis Referred To Contact CT IMAGING Diagnoses Hydronephrosis, unspecified hydronephrosis type Dilation of biliary tract Procedures CT ABDOMEN W IVCON CT ABDOMEN W/CONTRAST Dustin Hoang MD [address] [place] [address] Ct [facility] [place] [id number] Referral ID Status Reason Start Date Expiration Date V isits Requested Visits Authorized [id number] Closed Auto-Generate d Referral 08/01/2022 08/31/2023 1 1 Specialty Diagnoses / Procedures Referred By Royal cel[facility] Referred To Contact CT IMAGING Diagnoses Ataxia Headache, unspecified headache type Procedures CT BRAIN WO IVCON CT HEAD/BRAIN W/O CONTRAST MATERIAL Dustin Hoang MD [address] [place] [address] Ct [facility] [place] [id number] Referral ID Status Reason Start Date Expiration Date V isits Requested Visits Authorized [id number] Closed Auto-Generat ed Referral Patient Cleared - [...] Yes August 14, 2014 5:12pm Power of University Manager Yes August 14 5 5:12pm Advance Directive Response Recorded Date/ Time Name of Medical Power of University Manager Meghan Chintan January 29, 2023 3:21pm Advance Directives Yes August 14 5:12pm Living Will Yes January 29 3:21pm Power of University Manager Yes January 29 023 3:21pm Documents on File 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 Advance Directive(s) 12/08/2023 2:05 PM Summary Purpose Additional Source Comments Source Comments (unrecognize d section and content) In the event this informatio n is protected by the Federal Confidentiality of Alcohol and Drug Abuse Patient Records regulations: The Federal rules restrict any use of the information to criminally investigate or prosecute any alcohol or drug abuse patient.[facility] the event this information is protected by the Federal Confidentiality of Alcohol and Drug Abuse Patient Records regulations: The Federal rules restrict any use of the information to criminally investigate or prosecute any alcohol or drug abuse patient.[facility] the event this information is protected by the Federal Confidentiality of Alcohol and Drug Abuse Patient Records regulations: The Federal rules restrict any use of the information to criminally investigate or prosecute any alcohol or drug abuse patient.[facility] the event this information is protected by the Federal Confidentiality of Alcohol and Drug Abuse Patient Records regulations: The Federal rules restrict any use of the information to criminally investigate or prosecute any alcohol or drug abuse patient.[facility] the event this information is protected by the Federal Confidentiality of Alcohol and Drug Abuse Patient Records regulations: The Federal rules restrict any use of the information to criminally investigate or prosecute any alcohol or drug abuse patient.[facility] the event this information is protected by the Federal Confidentiality of Alcohol and Drug Abuse Patient Records regulations: The Federal rules restrict any use of the information to criminally investigate or prosecute any alcohol or drug abuse patient.[facility] the event this information is protected by the Federal Confidentiality of Alcohol and Drug Abuse Patient Records regulations: The Federal rules restrict any use of the information to criminally investigate or prosecute any alcohol or drug abuse patient.[facility] the event this information is protected by the Federal Confidentiality of Alcohol and Drug Abuse Patient Records regulations: The Federal rules restrict any use of the information to criminally investigate or prosecute any alcohol or drug abuse patient.[facility] the event this information is protected by the Federal Confidentiality of Alcohol and Drug Abuse Patient Records regulations: The Federal rules restrict any use of the information to criminally investigate or prosecute any alcohol or drug abuse patient.[facility] the event this information is protected by the Federal Confidentiality of Alcohol and Drug Abuse Patient Records regulations: The Federal rules restrict any use of the information to criminally investigate or prosecute any alcohol or drug abuse patient.[facility] the event this information is protected by the Federal Confidentiality of Alcohol and Drug Abuse Patient Records regulations: The Federal rules restrict any use of the information to criminally investigate or prosecute any alcohol or drug abuse patient.[facility] the event this information is protected by the Federal Confidentiality of Alcohol and Drug Abuse Patient Records regulations: The Federal rules restrict any use of the information to criminally investigate or prosecute any alcohol or drug abuse patient.[facility] the event this information is protected by the Federal Confidentiality of Alcohol and Drug Abuse Patient Records regulations: The Federal rules restrict any use of the information to criminally investigate or prosecute any alcohol or drug abuse patient.[facility] the event this information is protected by the Federal Confidentiality of Alcohol and Drug Abuse Patient Records regulations: The Federal rules restrict any use of the information to criminally investigate or prosecute any alcohol or drug abuse patient.[facility] the event this information is protected by the Federal Confidentiality of Alcohol and Drug Abuse Patient Records regulations: The Federal rules restrict any use of the information to criminally investigate or prosecute any alcohol or drug abuse patient.[facility] the event this information is protected by the Federal Confidentiality of Alcohol and Drug Abuse Patient Records regulations: The Federal rules restrict any use of the information to criminally investigate or prosecute any alcohol or drug abuse patient.[facility] the event this information is protected by the Federal Confidentiality of Alcohol and Drug Abuse Patient Records regulations: The Federal rules restrict any use of the information to criminally investigate or prosecute any alcohol or drug abuse patient.[facility] the event this information is protected by the Federal Confidentiality of Alcohol and Drug Abuse Patient Records regulations: The Federal rules restrict any use of the information to criminally investigate or prosecute any alcohol or drug abuse patient.[facility] the event this information is protected by the Federal Confidentiality of Alcohol and Drug Abuse Patient Records regulations: The Federal rules restrict any use of the information to criminally investigate or prosecute any alcohol or drug abuse patient.[facility] the event this information is protected by the Federal Confidentiality of Alcohol and Drug Abuse Patient Records regulations: The Federal rules restrict any use of the information to criminally investigate or prosecute any alcohol or drug abuse patient.[facility] the event this information is protected by the Federal Confidentiality of Alcohol and Drug Abuse Patient Records regulations: The Federal rules restrict any use of the information to criminally investigate or prosecute any alcohol or drug abuse patient.[facility] the event this information is protected by the Federal Confidentiality of Alcohol and Drug Abuse Patient Records regulations: The Federal rules restrict any use of the information to criminally investigate or prosecute any alcohol or drug abuse patient.[facility] the event this information is protected by the Federal Confidentiality of Alcohol and Drug Abuse Patient Records regulations: The Federal rules restrict any use of the information to criminally investigate or prosecute any alcohol or drug abuse patient.[facility] the event this information is protected by the Federal Confidentiality of Alcohol and Drug Abuse Patient Records regulations: The Federal rules restrict any use of the information to criminally investigate or prosecute any alcohol or drug abuse patient.[facility] the event this information is protected by the Federal Confidentiality of Alcohol and Drug Abuse Patient Records regulations: The Federal rules restrict any use of the information to criminally investigate or prosecute any alcohol or drug abuse patient.[facility] the event this information is protected by the Federal Confidentiality of Alcohol and Drug Abuse Patient Records regulations: The Federal rules restrict any use of the information to criminally investigate or prosecute any alcohol or drug abuse patient.[facility] the event this information is protected by the Federal Confidentiality of Alcohol and Drug Abuse Patient Records regulations: The Federal rules restrict any use of the information to criminally investigate or prosecute any alcohol or drug abuse patient.[facility] the event this information is protected by the Federal Confidentiality of Alcohol and Drug Abuse Patient Records regulations: The Federal rules restrict any use of the information to criminally investigate or prosecute any alcohol or drug abuse patient.[facility] the event this information is protected by the Federal Confidentiality of Alcohol and Drug Abuse Patient Records regulations: The Federal rules restrict any use of the information to criminally investigate or prosecute any alcohol or drug abuse patient.[facility]In the event this information is protected [...] or prosecute any alcohol or drug abuse patient.[facility] the event this information is protected by the Federal Confidentiality of Alcohol and Drug Abuse Patient Records regulations: The Federal rules restrict any use of the information to criminally investigate or prosecute any alcohol or drug abuse patient.[facility] the event this information is protected by the Federal Confidentiality of Alcohol and Drug Abuse Patient Records regulations: The Federal rules restrict any use of the information to criminally investigate or prosecute any alcohol or drug abuse patient.[facility] the event this information is protected by the Federal Confidentiality of Alcohol and Drug Abuse Patient Records regulations: The Federal rules restrict any use of the information to criminally investigate or prosecute any alcohol or drug abuse patient.[facility] the event this information is protected by the Federal Confidentiality of Alcohol and Drug Abuse Patient Records regulations: The Federal rules restrict any use of the information to criminally investigate or prosecute any alcohol or drug abuse patient.[facility]In the event this information is protected by the Federal Confidentiality of Alcohol and Drug Abuse Patient Records regulations: The Federal rules restrict any use of the information to criminally investigate or prosecute any alcohol or drug abuse patient.[facility]In the event this information is protected by the Federal Confidentiality of Alcohol and Drug Abuse Patient Records regulations: The Federal rules restrict any use of the information to criminally investigate or prosecute any alcohol or drug abuse patient.[facility]In the event this information is protected by the Federal Confidentiality of Alcohol and Drug Abuse Patient Records regulations: The Federal rules restrict any use of the information to criminally investigate or prosecute any alcohol or drug abuse patient.[facility]In the event this information is protected by the Federal Confidentiality of Alcohol and Drug Abuse Patient Records regulations: The Federal rules restrict any use of the information to criminally investigate or prosecute any alcohol or drug abuse patient.[facility]In the event this information is protected by the Federal Confidentiality of Alcohol and Drug Abuse Patient Records regulations: The Federal rules restrict any use of the information to criminally investigate or prosecute any alcohol or drug abuse patient.[facility]In the event this information is protected by the Federal Confidentiality of Alcohol and Drug Abuse Patient Records regulations: The Federal rules restrict any use of the information to criminally investigate or prosecute any alcohol or drug abuse patient.[facility]In the event this information is protected by the Federal Confidentiality of Alcohol and Drug Abuse Patient Records regulations: The Federal rules restrict any use of the information to criminally investigate or prosecute any alcohol or drug abuse patient.[facility]In the event this information is protected by the Federal Confidentiality of Alcohol and Drug Abuse Patient Records regulations: The Federal rules restrict any use of the information to criminally investigate or prosecute any alcohol or drug abuse patient.[facility]In the event this information is protected by the Federal Confidentiality of Alcohol and Drug Abuse Patient Records regulations: The Federal rules restrict any use of the information to criminally investigate or prosecute any alcohol or drug abuse patient.[facility]In the event this information is protected by the Federal Confidentiality of Alcohol and Drug Abuse Patient Records regulations: The Federal rules restrict any use of the information to criminally investigate or prosecute any alcohol or drug abuse patient.[facility]In the event this information is protected by the Federal Confidentiality of Alcohol and Drug Abuse Patient Records regulations: The Federal rules restrict any use of the information to criminally investigate or prosecute any alcohol or drug abuse patient.[facility]In the event this information is protected by the Federal Confidentiality of Alcohol and Drug Abuse Patient Records regulations: The Federal rules restrict any use of the information to criminally investigate or prosecute any alcohol or drug abuse patient.[facility]In the event this information is protected by the Federal Confidentiality of Alcohol and Drug Abuse Patient Records regulations: The Federal rules restrict any use of the information to criminally investigate or prosecute any alcohol or drug abuse patient.[facility]In the event this information is protected by the Federal Confidentiality of Alcohol and Drug Abuse Patient Records regulations: The Federal rules restrict any use of the information to criminally investigate or prosecute any alcohol or drug abuse patient.[facility]In the event this information is protected by the Federal Confidentiality of Alcohol and Drug Abuse Patient Records regulations: The Federal rules restrict any use of the information to criminally investigate or prosecute any alcohol or drug abuse patient.[facility]In the event this information is protected by the Federal Confidentiality of Alcohol and Drug Abuse Patient Records regulations: The Federal rules restrict any use of the information to criminally investigate or prosecute any alcohol or drug abuse patient.[facility]In the event this information is protected by the Federal Confidentiality of Alcohol and Drug Abuse Patient Records regulations: The Federal rules restrict any use of the information to criminally investigate or prosecute any alcohol or drug abuse patient.[facility]In the event this information is protected by the Federal Confidentiality of Alcohol and Drug Abuse Patient Records regulations: The Federal rules restrict any use of the information to criminally investigate or prosecute any alcohol or drug abuse patient.[facility]In the event this information is protected by the Federal Confidentiality of Alcohol and Drug Abuse Patient Records regulations: The Federal rules restrict any use of the information to criminally investigate or prosecute any alcohol or drug abuse patient.[facility]In the event this information is protected by the Federal Confidentiality of Alcohol and Drug Abuse Patient Records regulations: The Federal rules restrict any use of the information to criminally investigate or prosecute any alcohol or drug abuse patient.[facility]In the event this information is protected by the Federal Confidentiality of Alcohol and Drug Abuse Patient Records regulations: The Federal rules restrict any use of the information to criminally investigate or prosecute any alcohol or drug abuse patient.[facility]In the event this information is protected by the Federal Confidentiality of Alcohol and Drug Abuse Patient Records regulations: The Federal rules restrict any use of the information to criminally investigate or prosecute any alcohol or drug abuse patient.[facility]In the event this information is protected by the Federal Confidentiality of Alcohol and Drug Abuse Patient Records regulations: The Federal rules restrict any use of the information to criminally investigate or prosecute any alcohol or drug abuse patient.[facility]In the event this information is protected by the Federal Confidentiality of Alcohol and Drug Abuse Patient Records regulations: The Federal rules restrict any use of the information to criminally investigate or prosecute any alcohol or drug abuse patient.[facility]In the event this information is protected by the Federal Confidentiality of Alcohol and Drug Abuse Patient Records regulations: The Federal rules restrict any use of the information to criminally investigate or prosecute any alcohol or drug abuse patient.[facility]In the event this information is protected by the Federal Confidentiality of Alcohol and Drug Abuse Patient Records regulations: The Federal rules restrict any use of the information to criminally investigate or prosecute any alcohol or drug abuse patient.[facility]In the event this information is protected by the Federal Confidentiality of Alcohol and Drug Abuse Patient Records regulations: The Federal rules restrict any use of the information to criminally investigate or prosecute any alcohol or drug abuse patient.[facility]In the event this information is protected by the Federal Confidentiality of Alcohol and Drug Abuse Patient Records regulations: The Federal rules restrict any use of the information to criminally investigate or prosecute any alcohol or drug abuse patient.[facility]In the event this information is protected by the Federal Confidentiality of Alcohol and Drug Abuse Patient Records regulations: The Federal rules restrict any use of the information to criminally investigate or prosecute any alcohol or drug abuse patient.[facility]In the event this information is protected by the Federal Confidentiality of Alcohol and Drug Abuse Patient Records regulations: The Federal rules restrict any use of the information to criminally investigate or prosecute any alcohol or drug abuse patient.[facility]In the event this information is protected by the Federal Confidentiality of Alcohol and Drug Abuse Patient Records regulations: The Federal rules restrict any use of the information to criminally investigate or prosecute any alcohol or drug abuse patient.[facility]In the event this information is protected by the Federal Confidentiality of Alcohol and Drug Abuse Patient Records regulations: The Federal rules restrict any use of the information to criminally investigate or prosecute any alcohol or drug abuse patient.[facility] the event this information is protected by the Federal Confidentiality of Alcohol and Drug Abuse Patient Records regulations: The Federal rules restrict any use of the information to criminally investigate or prosecute any alcohol or drug abuse patient.[facility]In the event this information is protected by the Federal Confidentiality of Alcohol and Drug Abuse Patient Records regulations: The Federal rules restrict any use of the information to criminally investigate or prosecute any alcohol or drug abuse patient.[facility] the event this information is protected by the Federal Confidentiality of Alcohol and Drug Abuse Patient Records regulations: The Federal rules restrict any use of the information to criminally investigate or prosecute any alcohol or drug abuse patient.[facility]In the event this information is protected by the Federal Confidentiality of Alcohol and Drug Abuse Patient Records regulations: The Federal rules restrict any use of the information to criminally investigate or prosecute any alcohol or drug abuse patient.[facility]In the event this information is protected by the Federal Confidentiality of Alcohol and Drug Abuse Patient Records regulations: The Federal rules restrict any use of the information to criminally investigate or prosecute any alcohol or drug abuse patient.[facility] HospitalIn the event this information is protected by the Federal Confidentiality of Alcohol and Drug Abuse Patient Records regulations: The Federal rules restrict any use of the information to criminally investigate or prosecute any alcohol or drug abuse patient.[facility] HospitalIn the event this information is protected by the Federal Confidentiality of Alcohol and Drug Abuse Patient Records regulations: The Federal rules restrict any use of the information to criminally investigate or prosecute any alcohol or drug abuse patient.[facility] the event this information is protected by the Federal Confidentiality of Alcohol and Drug Abuse Patient Records regulations: The Federal rules restrict any use of the information to criminally investigate or prosecute any alcohol or drug abuse patient.[facility] HospitalIn the event this information is protected by the Federal Confidentiality of Alcohol and Drug Abuse Patient Records regulations: The Federal rules restrict any use of the information to criminally investigate or prosecute any alcohol or drug abuse patient.[facility] HospitalIn the event this information is protected by the Federal Confidentiality of Alcohol and Drug Abuse Patient Records regulations: The Federal rules restrict any use of the information to criminally investigate or prosecute any alcohol or drug abuse patient.[facility] HospitalIn the event this information is protected by the Federal Confidentiality of Alcohol and Drug Abuse Patient Records regulations: The Federal rules restrict any use of the information to criminally investigate or prosecute any alcohol or drug abuse patient.[facility] HospitalIn the event this information is protected by the Federal Confidentiality of Alcohol and Drug Abuse Patient Records regulations: The Federal rules restrict any use of the information to criminally investigate or prosecute any alcohol or drug abuse patient.[facility] HospitalIn the event this information is protected [...] or prosecute any alcohol or drug abuse patient.[facility] HospitalIn the event this information is protected by the Federal Confidentiality of Alcohol and Drug Abuse Patient Records regulations: The Federal rules restrict any use of the information to criminally investigate or prosecute any alcohol or drug abuse patient.[facility] HospitalIn the event this information is protected by the Federal Confidentiality of Alcohol and Drug Abuse Patient Records regulations: The Federal rules restrict any use of the information to criminally investigate or prosecute any alcohol or drug abuse patient.[facility] HospitalIn the event this information is protected by the Federal Confidentiality of Alcohol and Drug Abuse Patient Records regulations: The Federal rules restrict any use of the information to criminally investigate or prosecute any alcohol or drug abuse patient.[facility] Reason for Visit (unrecogniz ed section [...] Reason Comments Results Labs Reason Comments Outside [id number] Ordered Reason Comments F/U 6 months Reason [...] CT ABDOMEN W/CONTRAST Dustin Hoang MD [address] [place] [address] [place] [address] Referral ID Status Reason Start Date Expiration Date V isits Requested Visits Authorized [id number] Closed Auto-Generate d Referral 08/01/2022 08/31/2023 1 1 Reason Comments Radiology US Specialty Diagnoses / Procedures Referred By Alanac t Referred To Contact US IMAGING Diagnoses Epigastric pain Procedures US ABD RT UPPER QUADRANT US ABDOMINAL REAL TIME W/IMAGE LIMITED Dustin Hoang MD [address] [place] [address] [place] [address] Referral ID Status Reason Start Date Expiration Date V isits Requested Visits Authorized [id number] Closed Auto-Generate d Referral 07/25/2022 08/24/2023 1 [...] SPMTRY PRE&POST-BRNCDILAT ADMN Dustin Hoang MD [address] [place] [address] [facility] [place] [address] [place] [id number] Referral ID Status Reason Start Date Expiration Date V isits Requested Visits Authorized [id number] Closed Auto-Generate d Referral 11/21/2023 12/20/2024 1 1 Reason Comments Follow Up Specialty Diagnoses / Procedures Referred By Contac t Referred To Contact CT IMAGING Diagnoses Ataxia Headache, unspecified headache type Procedures CT BRAIN WO IVCON CT HEAD/BRAIN W/O CONTRAST MATERIAL Dustin Hoang MD [facility] [place] [id number] Imaging [id number] Referral ID Status Reason Start Date Expiration Date V isits Requested Visits Authorized [id number] Closed Auto-Generat ed Referral Patient Cleared - Admin/Chairm an/Director advise to proceed or did not respond 11/24/2023 06/08/2024 1 1 Reason Comments Appointment Nuclear Stress Test - [facility] Specialty Diagnoses / Procedures Referred By Contac t Referred To Contact [facility] Diagnoses [place] (dyspnea on exertion) Procedures OXIMETRY WITH AMBULATION NONINVASIVE EAR/PULSE OXIMETRY MULTIPLE DETER Dustin Hoang MD [address] [place] [address] [facility] [place] [address] [place] [id number] Referral ID Status Reason Start Date Expiration Date V isits Requested Visits Authorized [id number] Closed Auto-Generate d Referral 11/28/2023 12/27/2024 1 1 Reason Onset Date Comments Refill Request 02/17/2024 Reason Onset Date Comments Refill Request 02/18/2024 Reason Comments Outside Testing [facility] - xray Reason Onset Date Comments [...] Care Teams (unrecognized sec tion and content) Laundry Sorter Relationship Specialty Start Date End Date Dustin Hoang MD [facility] [place] [place] [address] PCP - General Family Practice 05/09/17 Laundry Sorter Relationship Specialty Start Date End Date Dustin Hoang MD [address] [place] [address], [place] [address] PCP - General Family Practice 05/09/17 Laundry Sorter Relationship Specialty Start Date End Date Dustin Hoang MD [address] [place] [address], [place] [address] PCP - General Family Practice 05/09/17 Laundry Sorter Relationship Specialty Start Date End Date Dustin Hoang MD [address] [place] [address], [place] [address] PCP - General Family Practice 05/09/17 Laundry Sorter Relationship Specialty Start Date End Date Dustin Hoang MD [address] [place] [address], [place] [address] PCP - General Family Practice 05/09/17 Laundry Sorter Relationship Specialty Start Date End Date Dustin Hoang MD [address] [place] [address], [place] [address] PCP - General Family Practice 05/09/17 Laundry Sorter Relationship Specialty Start Date End Date Dustin Hoang MD [address] [place] [address], [place] [address] PCP - General Family Practice 05/09/17 Laundry Sorter Relationship Specialty Start Date End Date Dustin Hoang MD [address] [facility] [place] [address] PCP - General Family Practice 05/09/17 Laundry Sorter Relationship Specialty Start Date End Date Dustin Hoang MD [facility] [place] [address] PCP - General Family Practice 05/09/17 Laundry Sorter Relationship Specialty Start Date End Date Dustin Hoang MD [facility] [place] [address] PCP - General Family Medicine 05/09/17 Laundry Sorter Relationship Specialty Start Date End Date Dustin Hoang MD [address] [place] [address], [place] [address] PCP - General Family Medicine 05/09/17 Laundry Sorter Relationship Specialty Start Date End Date Dustin Hoang MD [address] [place] [address], [place] [address] PCP - General Family Medicine 05/09/17 Laundry Sorter Relationship Specialty Start Date End Date Dustin Hoang MD [address] [place] [address], [place] [address] PCP - General Family Medicine 05/09/17 Laundry Sorter Relationship Specialty Start Date End Date Dustin Hoang MD [facility] [place] [address] PCP - General Family Medicine 05/09/17 Laundry Sorter Relationship Specialty Start Date End Date Dustin Hoang MD [address] [place] [address], [place] [address] PCP - General Family Medicine 05/09/17 Laundry Sorter Relationship Specialty Start Date End Date Dustin Hoang MD [address] [place] [address], [place] [address] PCP - General Family Medicine 05/09/17 Laundry Sorter Relationship Specialty Start Date End Date Dustin Hoang MD [address] [place] [address] PCP - General Family Medicine 05/09/17 Laundry Sorter Relationship Specialty Start Date End Date Dustin Hoang MD [address] [place] [address] PCP - General Family [facility] 05/09/17 Laundry Sorter Relationship Specialty Start Date End Date Dustin Hoang MD [address] [place] [address] PCP - General Family [facility] 05/09/17 Laundry Sorter Relationship Specialty Start Date End Date Dusitn Hoang MD [address] [place] [address] PCP - General Family [facility] 05/09/17 Team Status: Active Member Role [...] Joyner MD Primary Care Provider Active KARINA BCEKFORD Referring Provider Active KARINA BECKFORD Attending Provider Active Team Status: Inactive Member Role Status Dates Dr. Dustin Hoang MD Primary Care Provider Active Dr. Kevon Crum DO Attending Provider, Referring Provider Active Team Status: Active Member Role Status Dates Dr. Dustin Hoang MD Primary Care Provider Active Dr. Kevon Crum DO Attending Provider, Referring Provider Active Laundry Sorter Relationship Specialty Start Date End Date Dustin Hoang MD [address] [place] [address] PCP - General Family Medicine 05/09/17 Team [...] Dr. Flynn Castillo DO Emergency Provider Active Laundry Sorter Relationship Specialty Start Date End Date Dustin Hoang MD [address] [place] [address] PCP - General Family Medicine 05/09/17 Laundry Sorter Relationship Specialty Start Date End Date Dustin Hoang MD [address] [place] [address] PCP - General Family Medicine 05/09/17 Laundry Sorter Relationship Specialty Start Date End Date Dustin Hoang MD [address] [place] [address] PCP - General Family Medicine 05/09/17 Laundry Sorter Relationship Specialty Start Date End Date Dustin Hoang MD [address] [place] [address] PCP - General Family Medicine 05/09/17 Laundry Sorter Relationship Specialty Start Date End Date Dustin Hoang MD [address] [place] [address] PCP - General Family Medicine 05/09/17 Laundry Sorter Relationship Specialty Start Date End Date Dustin Hoang MD [address] [place] [address] PCP - General Family Medicine 05/09/17 Laundry Sorter Relationship Specialty Start Date End Date Dustin Hoang MD [address] [place] [address] PCP - General Family Medicine 05/09/17 Laundry Sorter Relationship Specialty Start Date End Date Dustin Hoang MD [address] [place] [address] PCP - General Family Medicine 05/09/17 Laundry Sorter Relationship Specialty Start Date End Date Dustin Hoang MD [address] [place] [address] PCP - General Family Medicine 05/09/17 Laundry Sorter Relationship Specialty Start Date End Date Dustin Hoang MD [address] [place] [address] PCP - General Family Medicine 05/09/17 Laundry Sorter Relationship Specialty Start Date End Date Dustin Hoang MD [address] [place] [address] PCP - General Family Medicine 05/09/17 Laundry Sorter Relationship Specialty Start Date End Date Dustin Hoang MD [address] [place] [address] PCP - General Family Medicine 05/09/17 Laundry Sorter Relationship Specialty Start Date End Date Dustin Hoang MD [address] [place] [address] PCP - General Family Medicine 05/09/17 Laundry Sorter Relationship Specialty Start Date End Date Dustin Hoang MD [address] [place] [address] PCP - General Family Medicine 05/09/17 Laundry Sorter Relationship Specialty Start Date End Date Dustin Hoang MD [address] [place] [address] PCP - General Family Medicine 05/09/17 Laundry Sorter Relationship Specialty Start Date End Date Dustin Hoang MD [address] [place] [address] PCP - General Family Medicine 05/09/17 Laundry Sorter Relationship Specialty Start Date End Date Dustin Hoagn MD [address] [place] [address] PCP - General Family Medicine 05/09/17 Laundry Sorter Relationship Specialty Start Date End Date Dustin Hoang MD [address] [place] [address] PCP - General Family Medicine 05/09/17 Laundry Sorter Relationship Specialty Start Date End Date Dustin Hoang MD [address] [place] [address] PCP - General Family Medicine 05/09/17 Laundry Sorter Relationship Specialty Start Date End Date Dustin Hoang MD [address] [place] [address] PCP - General Family Medicine 05/09/17 Laundry Sorter Relationship Specialty Start Date End Date Dustin Hoang MD [address] [place] [address] PCP - General Family Medicine 05/09/17 Laundry Sorter Relationship Specialty Start Date End Date Dustin Hoang MD [address] [place] [address] PCP - General Family Medicine 05/09/17 Laundry Sorter Relationship Specialty Start Date End Date Dustin Hoang MD [address] [place] [address] PCP - General Family Medicine 05/09/17 Shakeel Collins, RISSA.TRESTLE MAINTERNANCE LABORER [address] [place] [address] [facility] 05/15/24 Mamie Sotelo PA-C [address] [place] [address] [facility] 05/15/24 Laundry Sorter Relationship Specialty Start Date End Date Dustin Hoang MD [address] [place] [address] PCP - General Family Medicine 05/09/17 Shakeel Collins, BICYCLE REPAIR TECHNICIAN.TRESTLE MAINTERNANCE LABORER [address] [place] [address] [facility] 05/15/24 Mamie Sotelo PA-C [address] [place] [address] [facility] 05/15/24 Laundry Sorter Relationship Specialty Start Date End Date Dustin Hoang MD [address] [place] [address] PCP - General Family Medicine 05/09/17 Shakeel Collins APRN.TRESTLE MAINTERNANCE LABORER [address] [place] [address] [facility] 05/15/24 Mamie Sotelo PA-C [address] [facility] [place] [address] [facility] 05/15/24 Laundry Sorter Relationship Specialty Start Date End Date Dustin Hoang MD [address] [place] [address] PCP - General Family Medicine 05/09/17 Shakeel Collins APRN.TRESTLE MAINTERNANCE LABORER [address] [place] [address] [facility] 05/15/24 Mamie Sotelo PA-C [address] [place] [address] [facility] 05/15/24 Laundry Sorter Relationship Specialty Start Date End Date Dustin Hoang MD [address] [place] [address] PCP - General Family Medicine 05/09/17 Shakeel Collins APRN.TRESTLE MAINTERNANCE LABORER [address] [place] [address] [facility] 05/15/24 Mamie Sotelo PA-C [address] [place] [address] [facility] 05/15/24 Laundry Sorter Relationship Specialty Start Date End Date Dustin Hoang MD [address] [place] [address] PCP - General Family Medicine 05/09/17 Shakeel Collins, BICYCLE REPAIR TECHNICIAN.TRESTLE MAINTERNANCE LABORER [address] [place] [address] [facility] 05/15/24 Mamie Sotelo PA-C [address] [place] [address] [facility] 05/15/24 Laundry Sorter Relationship Specialty Start Date End Date Dustin Hoang MD [address] [place] [address] PCP - General Family Medicine 09/13/24 Shakeel Collins APRN.TRESTLE MAINTERNANCE LABORER [address] [place] [address] [facility] 05/15/24 Mamie Sotelo PA-C [address] [place] [address] [facility] 05/15/24 Laundry Sorter Relationship Specialty Start Date End Date Dustin Hoang MD [address] [place] [address] PCP - General Family Medicine 09/13/24 Shakeel Collins, RISSA.TRESTLE MAINTERNANCE LABORER [facility] [place] [address] [facility] 11/08/24 Mamie Sotelo PA-C [address] [place] [address] [facility] 11/08/24 Goals (unrecognized section and content) Goals may be documented in a n alternate sectionGoals may be documented in an alternate sectionGoals may be documented in an alternate section INFORMATION SOURCE (unrecogn ized section and content) DATE CREATED AUTHOR 12/18/2022 [facility] DATE CREATED AUTHOR AUTHOR'S ANDREI ATION 04/16/2024 [facility] DATE CREATED AUTHOR AUTHOR'S ANDREI CRONIN 07/12/2024 [facility] FOR RECORDS PERTAINING TO PATIENTS [...] BE BASED ON THE PRIMARY CLINICAL RECORDS. [facility]. provides no warranty or guarantee of the accuracy or completeness of information in this document.
[2024-11-29 23:32] LABS: Thyroid Stim Hormone (TSH) 0.958 uIU/mL (0.300-4.200)
[2024-11-30] VITALS (12 sets, daily range): BP systolic 136–156; BP diastolic 62–96; PULSE 61–80; RESP 16–20; TEMP 36.4–36.7; O2SAT 94–97; BMI 27.8
[2024-11-30] MEDS: 0.9% Normal Saline (1000mL) 1,000 ML 100 ML IV ×2 (00:22→09:42)
[2024-11-30] MEDS: Ceftriaxone 1 GM/50 ML BAG IV ×2 (01:30→22:23)
[2024-11-30] MEDS: Heparin Injection (Vial) 5,000 UNIT/ML VIAL 5000 UNIT SC ×3 (06:04→22:23)
[2024-11-30] MEDS: Creon 12,000 unit DR CapSULE 6 CAP PO ×2 (06:11→16:15)
[2024-11-30 06:31] LABS: Absolute Lymphocyte Count 0.47 X10^3/uL (0.83-4.51); Absolute Neutrophil Count 3.2 X10^3/uL (2.0-7.7); Basophil# 0.01 X10^3/uL; Basophil% 0.3 % (0-1); Eosinophil# 0.01 X10^3/uL; Eosinophils% 0.3 % (0-5); Hemoglobin 10.4 g/dL (12.0-15.0); Lymphocyte # 0.47 X10^3/ul (0.83-4.51); Lymphocyte % 12.4 % (19-41); Mean Corp Hgb Conc 32.5 g/dL (32-36); Mean Corpuscular Hgb 27.4 pg (27.0-32.0); Mean Corpuscular Volume 84.4 fL (81-99); Mean Platelet Vol. 9.7 fl (6.2-12.0); Monocyte# 0.06 X10^3/uL; Monocyte% 1.6 % (0-10); NRBC Flagged by Analyzer 0 % (0-5); Neutrophil # 3.21 X10^3/uL (2.7-7.7); Neutrophil % 84.3 % (47-70); POSITIVE DIFFERENTIAL YES; Platelet Count 232 K/mm3 (150-450); RBC Distribution Width CV 13.2 % (11.6-14.6); RBC Distribution Width SD 40.8 fl (35.1-43.9); Red Blood Count 3.79 M/mm3 (4.2-5.4); White Blood Count 3.8 K/mm3 (4.4-11.0)
[2024-11-30 06:44] LABS: ALB/GLOB Ratio 1.1 RATIO (0.9-2.4); AST(SGOT) 19 U/L (<=31); Alanine Aminotransfer ALT/SGPT 10 U/L (<=34); Albumin, Serum 3.3 g/dL (3.4-4.8); Alkaline Phosphatase 52 U/L (35-104); Anion Gap 14 (5-15); BUN 24 mg/dL (4-19); BUN/Creat Ratio 17.3 RATIO (10-20); Calcium,Total 8.3 mg/dL (7.6-11.0); Carbon Dioxide 19.3 mmol/L (21.0-32.0); Chloride 103 mmol/L (98-108); Creatinine, Serum 1.41 mg/dL (0.70-1.20); EST Glomerular Filtration Rate 37 (>60); Estimated Creatinine Clearance 26.99 ml/min (50-250); Globulin 2.9 g/dL (2.2-4.2); Glucose 171 mg/dL (70-99); Phosphorus 3.6 mg/dL (2.7-4.5); Potassium 4.7 mmol/L (3.3-5.1); Protein, Total 6.2 g/dL (5.9-8.4); Sodium Level 136 mmol/L (133-145); Total Bilirubin 0.43 mg/dL (0.00-1.30)
[2024-11-30 07:05] LABS: Vitamin B12 1359 pg/mL (180-914)
[2024-11-30] MEDS: Lactobacillis Acidophilus 1 CAP PO ×4 (09:42→22:23)
[2024-11-30] MEDS: Pantoprazole Sodium 40 MG Tablet PO (09:43)
[2024-11-30] MEDS: Tolterodine Tartrate 4 MG CAP.SA PO (09:43)
[2024-11-30] MEDS: Doxazosin 1 MG Tablet 2 MG PO (09:43)
[2024-11-30] MEDS: Metoprolol(XL)Succ 100 MG Tablet PO (09:44)
[2024-11-30] MEDS: MethylPREDNISolone 125 MG/2 ML Vial 60 MG IV ×2 (09:44→22:24)
[2024-11-30] MEDS: Cyanocobalamin 500 MCG Tablet PO (09:45)
[2024-11-30] MEDS: 0.9% Normal Saline (250mL Bag) 250 ML 15 ML IV (09:51)
[2024-11-30] MEDS: Ipratropium/Albuterol Sulfate 3 ML AMPUL.NEB INHALATION ×2 (13:42→19:06)
--- NOTE | 2024-11-30 14:51 | CASEMGMT ---
YADY SALEH Assessment Face to Face with patient for initial transition planning/care coordination assessment. YADY SALEH introduced self and role at [facility], pt voices understanding. Pt is A&Ox4 and is resting comfortably in bed and is calm. Care providers, pharmacy, and demographics verified. Admitting dx: UTI, AE COPD, FAITH LACE Strata: 1 PCP: Dustin Bhatt Specialists: Mustapha (PM) Preferred Pharmacy: [facility] Insurance: CYNTHIA CHONG IMELDA Prescription Benefit: Yes LNOK: Meghan Woodson (GD), Gabi Rob (Daughter) Living Arrangements: Pt lives alone in a single story home with a ramp to enter ADLs/IADLs: Pt states that she is indep Transportation: Pt does not drive. Pt's GD drives her and denies concerns DME: Cane, back stimulator, rollator, walk in shower. Pt is currently requiring additional oxygen and may qualify for home oxygen use. A verbal list of local in-network DME companies were provided to the pt at this time. Pt prefers [facility]. HHC/SNF: denies hx or needs Pt?s goal: Home Plan: Anticipate DC home once medically ready, follow for oxygen needs. PT/OT evaluations state no additional therapy recommended. Pt states that she feels safe returning home alone at the time of DC and states that she has support through her GD and daughter. Pt states that she really does not want home oxygen but may be willing to use if she qualifies. Pt denies further questions or concerns at this time. Report given to LEOBARDO CONTEH CM. Gissel Servin RN, CM
[2024-12-01 04:00] VITALS: BP 152/67; PULSE 55; RESP 16; TEMP 36.5; O2SAT 93
[2024-12-01 05:59] VITALS: BMI 27.6
[2024-12-01] MEDS: Heparin Injection (Vial) 5,000 UNIT/ML VIAL 5000 UNIT SC (05:59)
[2024-12-01] MEDS: Creon 12,000 unit DR CapSULE 6 CAP PO (05:59)
[2024-12-01] MEDS: Ipratropium/Albuterol Sulfate 3 ML AMPUL.NEB INHALATION (06:45)
[2024-12-01 06:46] VITALS: PULSE 59; RESP 18; O2SAT 94
[2024-12-01] MEDS: Lactobacillis Acidophilus 1 CAP PO (08:09)
[2024-12-01] MEDS: Doxazosin 1 MG Tablet 2 MG PO (08:10)
[2024-12-01] MEDS: Pantoprazole Sodium 40 MG Tablet PO (08:10)
[2024-12-01] MEDS: Loratadine 10 MG Tablet PO (08:10)
[2024-12-01] MEDS: MethylPREDNISolone 125 MG/2 ML Vial 60 MG IV (08:11)
[2024-12-01] MEDS: 0.9% Saline Lock 10 ML Syringe IV (08:11)
[2024-12-01] MEDS: Tolterodine Tartrate 4 MG CAP.SA PO (08:11)
[2024-12-01 08:12] VITALS: PULSE 80
[2024-12-01] MEDS: Metoprolol(XL)Succ 100 MG Tablet PO (08:12)
[2024-12-01] MEDS: Cyanocobalamin 500 MCG Tablet PO (08:12)
[2024-12-01 08:33] VITALS: BP 128/66; PULSE 65; RESP 18; TEMP 36.6; O2SAT 94
[2024-12-01 08:34] VITALS: PULSE 65
[2024-12-01 08:54] VITALS: O2SAT 94
--- NOTE | 2024-12-01 10:14 | DCINST_ITS ---
Discharge Instructions Diet Discharge Diet: No restrictions DC O2, CPAP, BIPAP needs Home O2 Discharge instructions: No Dressing / Incision Discharge Activity: Return to Normal Activity Weight Bearing Status: Full weight bearing Follow Up Care Test Results: Test results from this visit will be discussed in further detail at your follow- up appointment, if applicable. Discharge Plan Admission Admit Date/Time: 11/29/24 22:42 Primary Reason for Your Visit: Urinary tract infection, hypoxia, exacerbation of COPD Attending Provider: Jemal Manrique Primary Care Provider: Dustin Bhatt Consulting Providers: Kristopher Ivy Discharge Orders/Prescriptions Prescriptions: New prednisone 20 mg tablet 20 mg PO BID Qty: 12 0RF Rx Instructions: To twice a day for 4 days, then 1 daily for 4 days then discontinue cefdinir 300 mg capsule 300 mg PO BID Qty: 10 0RF albuterol sulfate [Ventolin HFA] 90 mcg/actuation HFA aerosol inhaler 2 puff inhalation Q6H PRN (Reason: shortness of breath or wheezing) Qty: 6.7 0RF Continued rosuvastatin 20 mg tablet 20 mg PO DAILY tolterodine [Detrol LA] 4 mg capsule,extended release 24hr 4 mg PO DAILY cyanocobalamin (vitamin B-12) 500 mcg tablet 500 mcg PO DAILY omeprazole 40 mg capsule,delayed release(DR/EC) 40 mg PO DAILY lisinopril 40 mg tablet 40 mg PO BID doxazosin 2 mg tablet 2 mg PO DAILY Patient Comments: TAKE 1 TABLET BY MOUTH EVERY DAY metoprolol succinate 100 mg tablet extended release 24 hr 100 mg PO DAILY loratadine 10 mg tablet 10 mg PO DAILY Creon 36,000-114,000- 180,000 unit capsule,delayed release(DR/EC) 2 cap PO QAC Qty: 300 4RF Rx Instructions: take 2-3 capsules with meals, 1-2 capsules with snacks. Max of 10 capsules per day. ondansetron HCl 4 mg tablet 4 mg PO Q6H PRN Qty: 30 2RF Referrals / Follow Up: Dustin Bhatt MD [Primary Care Provider] - In 1 Week (Have Dr. Bhatt obtain a BMP on you to check your kidney function) Disposition Disposition (needs filled in before D/C Order can be placed): Home, Self Care
--- NOTE | 2024-12-01 10:21 | PCM.DC.SUM ---
Providers Date of Admission: 11/29/24 Date of Discharge: 12/01/24 Primary Care Physician: Dr. Dustin Bhatt MD Reason For Visit: UTI, AE, FAITH AND GENERALIZED Diagnosis Discharge Diagnosis (1) Acute cystitis without hematuria: Status: Acute Code(s): N30.00 - Acute cystitis without hematuria (2) COPD exacerbation: Status: Chronic Code(s): J44.1 - Chronic obstructive pulmonary disease with (acute) exacerbation (3) Acute respiratory insufficiency: Status: Acute Code(s): R06.89 - Other abnormalities of breathing (4) FAITH (acute kidney injury): Status: Acute Code(s): N17.9 - Acute kidney failure, unspecified (5) Generalized weakness: Status: Acute Code(s): R53.1 - Weakness (6) Malaise and fatigue: Status: Acute Code(s): R53.81 - Other malaise; R53.83 - Other fatigue (7) Overweight (BMI 25.0-29.9): Status: Acute Code(s): E66.3 - Overweight Plan 1. Acute cystitis-patient will remain on IV Rocephin #2 exacerbation of chronic obstructive pulmonary disease-patient will remain on aerosol treatments and IV Solu-Medrol #3 hypoxia secondary to #2-patient's pulse ox will be monitored, oxygen will be weaned if possible #4 elevated creatinine-it is unknown what the patient's baseline creatinine is at this time, labs will be monitored as needed, patient will need repeat kidney functions done as an outpatient to see what her baseline creatinine is #5 essential hypertension-patient will remain on her current medications. Medications at Discharge Home Medications cyanocobalamin (vitamin B-12) 500 mcg tablet 500 mcg PO DAILY 09/04/22 omeprazole 40 mg capsule,delayed release 40 mg PO DAILY 09/04/22 rosuvastatin 20 mg tablet 20 mg PO DAILY 09/04/22 tolterodine 4 mg capsule,extended release 24 hr (Detrol LA) 4 mg PO DAILY 09/04/22 doxazosin 2 mg tablet 2 mg PO DAILY 01/29/23 lisinopril 40 mg tablet 40 mg PO BID 03/25/24 vnqelt-ikbktjhq-kvdphdz 36,000-114,000-180,000 unit capsule,delay rel (Creon) 2 cap PO QAC #300 caps 07/14/24 ondansetron HCl 4 mg tablet 4 mg PO Q6H PRN #30 tabs 11/23/24 loratadine 10 mg tablet 10 mg PO DAILY 11/29/24 metoprolol succinate 100 mg tablet,extended release 24 hr 100 mg PO DAILY 11/29/24 albuterol sulfate 90 mcg/actuation aerosol inhaler (Ventolin HFA) 2 puff inhalation Q6H PRN shortness of breath or wheezing #6.7 grams 12/01/24 cefdinir 300 mg capsule 300 mg PO BID #10 caps 12/01/24 prednisone 20 mg tablet 20 mg PO BID #12 tabs 12/01/24 Hospital Course Operations None Procedures None Summary of Care Provided Minutes Spent on Discharge: 31 Hospital Course: Patient is an 84-year-old white female who was seen in the emergency room at [facility] with cough and shortness of breath. She also stated she had nausea and vomiting and weakness. Labs obtained included a CBC which showed a normal white blood cell count, hemoglobin was 11.4, creatinine was 1.83 and BUN was 27. Patient's UA showed over 100,000 white blood cells, 0-5 RBCs and +3 bacteria. Chest x-ray showed no focal consolidations, CTA did not show any evidence of pulmonary embolism but showed emphysema. Patient was admitted to [place] [address], she was placed on antibiotics and given IV fluids. Labs were monitored and repeat creatinine was improved at 1.41. On 12/01/2024, patient was seen and examined: On examination she appeared in good health and spirits, she does not appear to be in any distress. Vital signs as documented. Skin warm and dry and without overt rashes. Neck without JVD, thyroid appears normal, trachea is midline, neck is supple. Lungs clear, normal air movement was noted. Heart exam notable for regular rhythm, normal sounds and absence of murmurs, rubs or gallops. Abdomen unremarkable and without evidence of organomegaly, masses, or abdominal aortic enlargement, bowel sounds are present in all 4 quadrants, no abdominal tenderness was noted. Extremities nonedematous, no cyanosis was noted, no clubbing was noted. Neuro: Cranial nerves II through XII are grossly intact, no focal motor deficits were noted, sensation to light touch and pinprick is intact, motor exam 5/5 throughout. Psych: Patient is alert and oriented x3, she does not appear anxious or depressed, she does not appear agitated. Patient was discharged home in stable condition on 12/01/2024 Weight / BMI Weight Weight: 70.9 kg Body Mass Index (BMI) 27.6 ABG / Lab / Microbiology Data 11/30/24 05:45 11/30/24 05:45 Microbiology: Microbiology 11/29/24 18:05 Urine, Random Urine Culture - Final Mixed Gram Pos & Gram Neg Org D/C Instructions Discharge Diet: No restrictions Weight Bearing Status: Full weight bearing DC O2, CPAP, BIPAP Needs Home O2 Discharge instructions: No Meaningful Use Info Meaningful Use Meaningful Use Diagnoses (Choose all that apply): None applicable Ischemic Stroke Statin Dosing Therapy Reference: STATIN DOSE THERAPY REFERENCE: * Patients > 75 years receive moderate or high dose statin therapy. * Patients 75 years or YOUNGER should receive HIGH intensity statin dose unless contraindicated. You will be required to document reason for non-treatment if statin daily dose does not meet guidelines. HIGH DOSE STATIN THERAPY DAILY Atorvastatin > than or = to 40 mg Rosuvastatin > than or = to 20 mg Amlodipine + Atorvastatin > than or = to 2.5/40 mg Ezetimibe + Simvastatin 10/80 mg Simvastatin 80mg Discharge Plan Admission Admit Date/Time: 11/29/24 22:42 Primary Reason for Your Visit: Urinary tract infection, hypoxia, exacerbation of COPD Attending Provider: Jemal Manrique Primary Care Provider: Dustin Bhatt Consulting Providers: Kristopher Ivy Discharge Orders/Prescriptions Prescriptions: New prednisone 20 mg tablet 20 mg PO BID Qty: 12 0RF Rx Instructions: To twice a day for 4 days, then 1 daily for 4 days then discontinue cefdinir 300 mg capsule 300 mg PO BID Qty: 10 0RF albuterol sulfate [Ventolin HFA] 90 mcg/actuation HFA aerosol inhaler 2 puff inhalation Q6H PRN (Reason: shortness of breath or wheezing) Qty: 6.7 0RF Continued rosuvastatin 20 mg tablet 20 mg PO DAILY tolterodine [Detrol LA] 4 mg capsule,extended release 24hr 4 mg PO DAILY cyanocobalamin (vitamin B-12) 500 mcg tablet 500 mcg PO DAILY omeprazole 40 mg capsule,delayed release(DR/EC) 40 mg PO DAILY lisinopril 40 mg tablet 40 mg PO BID doxazosin 2 mg tablet 2 mg PO DAILY Patient Comments: TAKE 1 TABLET BY MOUTH EVERY DAY metoprolol succinate 100 mg tablet extended release 24 hr 100 mg PO DAILY loratadine 10 mg tablet 10 mg PO DAILY Creon 36,000-114,000- 180,000 unit capsule,delayed release(DR/EC) 2 cap PO QAC Qty: 300 4RF Rx Instructions: take 2-3 capsules with meals, 1-2 capsules with snacks. Max of 10 capsules per day. ondansetron HCl 4 mg tablet 4 mg PO Q6H PRN Qty: 30 2RF Referrals / Follow Up: Dustin Bhatt MD [Primary Care Provider] - In 1 Week (Have Dr. Bhatt obtain a BMP on you to check your kidney function) Disposition Disposition (needs filled in before D/C Order can be placed): Home, Self Care Charges/Coding Visit Charges Inpatient E&M: 35371 Disch Hosp >30min
--- NOTE | 2024-12-01 10:22 | PCM.PN.HOSP ---
Reason for Visit Reason for Visit: Diagnoses Overweight (11/29/24) Chronic obstructive pulmonary disease with (acute) exacerbation (11/29/24) Acute kidney failure, unspecified (11/29/24) Acute cystitis without hematuria (11/29/24) Other abnormalities of breathing (11/29/24) Weakness (11/29/24) Other malaise (11/29/24) Other fatigue (11/29/24) Subjective Subjective The date of this entry should be 11/30/2024: Patient was seen and examined today, her grand daughter was in the room at the time my examination, patient is requiring supplemental oxygen at a low flow rate, she has been if she could be discharged today-I told her that I would consider it tomorrow if she was medically stable but I would not advise her to go home today. Objective Data Objective Data Vital Signs: Vital Signs Temp Pulse Resp BP Pulse Ox O2 Del Method O2 Flow Rate 97.8 F 65 18 128/66 H 94 Room Air 1 12/01/24 08:33 12/01/24 08:34 12/01/24 08:33 12/01/24 08:33 12/01/24 08:33 12/01/24 08:33 12/01/24 06:46 Oxygen Flow Rate (L/min) 1 Oxygen Delivery Method Room Air Weight: 70.9 kg Body Mass Index (BMI) 27.6 Intake & Output: Intake and Output for Last 24 Hours 11/29/24 11/30/24 12/01/24 23:59 23:59 23:59 Intake Total 1000 / 1000 0.33 / 2040.33 1300 / 1300 Balance 1000 / 1000 2039. / 2039.33 1300 / 1300 Lab / Micro Data 11/30/24 05:45 11/30/24 05:45 Physical Exam Const alert, oriented x3, no apparent distress and healthy appearing General Appearance: cooperative, well kempt and well developed Orientation / Consciousness: awake, oriented to person, oriented to place and oriented to time HEENT normocephalic, head/scalp atraumatic and moist oral mucous membranes Eyes PERRL, EOMs intact bilaterally and conjunctivae normal Neck supple, no JVD, thyroid normal and no carotid bruits General: trachea midline Resp normal respiratory effort, no retractions, no use of accessory muscles and clear to auscultation bilaterally Auscultation: Negative for rales, rhonchi or wheezes Cardio regular rate, regular rhythm, S1 normal heart sound, S2 normal heart sound, no murmurs, no rub and no gallops GI normal to inspection, nondistended, normoactive bowel sounds, soft to palpation, non-tender and non-distended Extremity no clubbing, cyanosis or edema Skin no rashes or lesions noted General Skin Exam: no breakdown Neuro oriented x3, CN's II-XII intact bilaterally, no focal motor deficits and no sensory deficits noted Sensorium / Orientation: awake and alert Speech: speech normal Psych affect normal Assessment & Plan Assessment/Plan (1) Acute cystitis without hematuria: PLAN: Plan 1. Acute cystitis-patient will remain on IV Rocephin #2 exacerbation of chronic obstructive pulmonary disease-patient will remain on aerosol treatments and IV Solu-Medrol #3 hypoxia secondary to #2-patient's pulse ox will be monitored, oxygen will be weaned if possible #4 elevated creatinine-it is unknown what the patient's baseline creatinine is at this time, labs will be monitored as needed, patient will need repeat kidney functions done as an outpatient to see what her baseline creatinine is #5 essential hypertension-patient will remain on her current medications. Total clinical time spent by myself addressing patient's medical issues, reviewing all of her data, and collaborating with patient's care team: 35 minutes Charges/Coding Visit Charges Inpatient E&M: 55395 Subs Hosp L2
--- NOTE | 2024-12-01 10:25 | PCM.DC.SUM ---
Providers Date of Admission: 11/29/24 Date of Discharge: 12/01/24 Primary Care Physician: Dr. Dustin Bhatt MD Reason For Visit: UTI, AE, FAITH AND GENERALIZED Diagnosis Discharge Diagnosis (1) Acute cystitis without hematuria: Status: Acute Code(s): N30.00 - Acute cystitis without hematuria Plan 1. Acute cystitis-patient will remain on IV Rocephin #2 exacerbation of chronic obstructive pulmonary disease-patient will remain on aerosol treatments and IV Solu-Medrol #3 hypoxia secondary to #2-patient's pulse ox will be monitored, oxygen will be weaned if possible #4 elevated creatinine-it is unknown what the patient's baseline creatinine is at this time, labs will be monitored as needed, patient will need repeat kidney functions done as an outpatient to see what her baseline creatinine is #5 essential hypertension-patient will remain on her current medications. Total clinical time spent by myself addressing patient's medical issues, reviewing all of her data, and collaborating with patient's care team: 35 minutes Medications at Discharge Home Medications cyanocobalamin (vitamin B-12) 500 mcg tablet 500 mcg PO DAILY 09/04/22 omeprazole 40 mg capsule,delayed release 40 mg PO DAILY 09/04/22 rosuvastatin 20 mg tablet 20 mg PO DAILY 09/04/22 tolterodine 4 mg capsule,extended release 24 hr (Detrol LA) 4 mg PO DAILY 09/04/22 doxazosin 2 mg tablet 2 mg PO DAILY 01/29/23 lisinopril 40 mg tablet 40 mg PO BID 03/25/24 hyourd-xwalkycu-vbxofdm 36,000-114,000-180,000 unit capsule,delay rel (Creon) 2 cap PO QAC #300 caps 07/14/24 ondansetron HCl 4 mg tablet 4 mg PO Q6H PRN #30 tabs 11/23/24 loratadine 10 mg tablet 10 mg PO DAILY 11/29/24 metoprolol succinate 100 mg tablet,extended release 24 hr 100 mg PO DAILY 11/29/24 albuterol sulfate 90 mcg/actuation aerosol inhaler (Ventolin HFA) 2 puff inhalation Q6H PRN shortness of breath or wheezing #6.7 grams 12/01/24 cefdinir 300 mg capsule 300 mg PO BID #10 caps 12/01/24 prednisone 20 mg tablet 20 mg PO BID #12 tabs 12/01/24 Weight / BMI Weight Weight: 70.9 kg Body Mass Index (BMI) 27.6 ABG / Lab / Microbiology Data 11/30/24 05:45 11/30/24 05:45 D/C Instructions Discharge Diet: No restrictions Weight Bearing Status: Full weight bearing DC O2, CPAP, BIPAP Needs Home O2 Discharge instructions: No Meaningful Use Info Ischemic Stroke Statin Dosing Therapy Reference: STATIN DOSE THERAPY REFERENCE: * Patients > 75 years receive moderate or high dose statin therapy. * Patients 75 years or YOUNGER should receive HIGH intensity statin dose unless contraindicated. You will be required to document reason for non-treatment if statin daily dose does not meet guidelines. HIGH DOSE STATIN THERAPY DAILY Atorvastatin > than or = to 40 mg Rosuvastatin > than or = to 20 mg Amlodipine + Atorvastatin > than or = to 2.5/40 mg Ezetimibe + Simvastatin 10/80 mg Simvastatin 80mg Discharge Plan Admission Admit Date/Time: 11/29/24 22:42 Primary Reason for Your Visit: Urinary tract infection, hypoxia, exacerbation of COPD Attending Provider: Jemal Manrique Primary Care Provider: Dustin Bhatt Consulting Providers: Kristopher Ivy Discharge Orders/Prescriptions Prescriptions: New prednisone 20 mg tablet 20 mg PO BID Qty: 12 0RF Rx Instructions: To twice a day for 4 days, then 1 daily for 4 days then discontinue cefdinir 300 mg capsule 300 mg PO BID Qty: 10 0RF albuterol sulfate [Ventolin HFA] 90 mcg/actuation HFA aerosol inhaler 2 puff inhalation Q6H PRN (Reason: shortness of breath or wheezing) Qty: 6.7 0RF Continued rosuvastatin 20 mg tablet 20 mg PO DAILY tolterodine [Detrol LA] 4 mg capsule,extended release 24hr 4 mg PO DAILY cyanocobalamin (vitamin B-12) 500 mcg tablet 500 mcg PO DAILY omeprazole 40 mg capsule,delayed release(DR/EC) 40 mg PO DAILY lisinopril 40 mg tablet 40 mg PO BID doxazosin 2 mg tablet 2 mg PO DAILY Patient Comments: TAKE 1 TABLET BY MOUTH EVERY DAY metoprolol succinate 100 mg tablet extended release 24 hr 100 mg PO DAILY loratadine 10 mg tablet 10 mg PO DAILY Creon 36,000-114,000- 180,000 unit capsule,delayed release(DR/EC) 2 cap PO QAC Qty: 300 4RF Rx Instructions: take 2-3 capsules with meals, 1-2 capsules with snacks. Max of 10 capsules per day. ondansetron HCl 4 mg tablet 4 mg PO Q6H PRN Qty: 30 2RF Referrals / Follow Up: Dustin Bhatt MD [Primary Care Provider] - In 1 Week (Have Dr. Bhatt obtain a BMP on you to check your kidney function) Disposition Disposition (needs filled in before D/C Order can be placed): Home, Self Care
--- NOTE | 2024-12-01 10:36 | CASEMGMT ---
No therapy recommended, pt does not qualify for home oxygen.
--- NOTE | 2024-12-01 12:19 | PHA.DC.MC.R ---
Pharmacy [facility] Counseling Pharmacy Service has performed discharge medication reconciliation and counseling for this patient. 1. ALBUTEROL MDI 2 PUFFS Q6H PRN SOB/WHEEZING 2. CEFDINIR 300MG PO BID X 5 DAYS 3. PREDNISONE 20MG PO BID X 4 DAYS, THEN DAILY X 4 DAYS The patient's discharge medication list was reviewed for discrepancies and discrepancies were resolved. The patient was counseled on the following discharge medications and changes in medications for homegoing were reviewed. The Reason for Use, instructions for use, and potential side effects were reviewed for all new medications. The patient's questions regarding all of their medications were answered. The patient was able to verbally demonstrate an understanding of their discharge medications. Medications at Discharge Home Medications cyanocobalamin (vitamin B-12) 500 mcg tablet 500 mcg PO DAILY 09/04/22 omeprazole 40 mg capsule,delayed release 40 mg PO DAILY 09/04/22 rosuvastatin 20 mg tablet 20 mg PO DAILY 09/04/22 tolterodine 4 mg capsule,extended release 24 hr (Detrol LA) 4 mg PO DAILY 09/04/22 doxazosin 2 mg tablet 2 mg PO DAILY 01/29/23 lisinopril 40 mg tablet 40 mg PO BID 03/25/24 adfcen-rtzvhicz-aezfhck 36,000-114,000-180,000 unit capsule,delay rel (Creon) 2 cap PO QAC #300 caps 07/14/24 ondansetron HCl 4 mg tablet 4 mg PO Q6H PRN #30 tabs 11/23/24 loratadine 10 mg tablet 10 mg PO DAILY 11/29/24 metoprolol succinate 100 mg tablet,extended release 24 hr 100 mg PO DAILY 11/29/24 albuterol sulfate 90 mcg/actuation aerosol inhaler (Ventolin HFA) 2 puff inhalation Q6H PRN shortness of breath or wheezing #6.7 grams 12/01/24 cefdinir 300 mg capsule 300 mg PO BID #10 caps 12/01/24 prednisone 20 mg tablet 20 mg PO BID #12 tabs 12/01/24
== END 2024-12-01 12:16 | disposition home or self-care (01) ==
LOC: ED 21:59 → MS3 23:17
PROVIDERS: Admitting Provider Internal Medicine; Emergency Provider Emergency Medicine; PCP Family Medicine; Referring Provider Emergency Medicine; Visit Provider Internal Medicine
DX: J44.1 Chronic obstructive pulmonary disease with (acute) exacerbation (principal); N30.00 Acute cystitis without hematuria; E53.8 Deficiency of other specified B group vitamins; I10 Essential (primary) hypertension; E78.5 Hyperlipidemia, unspecified; K21.9 Gastro-esophageal reflux disease without esophagitis; K58.9 Irritable bowel syndrome, unspecified; E66.3 Overweight; R79.89 Other specified abnormal findings of blood chemistry; N32.81 Overactive bladder; K90.0 Celiac disease; R53.1 Weakness; R53.81 Other malaise; Z68.27 Body mass index [BMI] 27.0-27.9, adult; Z87.19 Personal history of other diseases of the digestive system; Z79.899 Other long term (current) drug therapy; Z87.891 Personal history of nicotine dependence; G89.29 Other chronic pain
CPT/HCPCS: 36415; 71046; 71275; 80053; 81001; 82607; 83690; 83735; 84100; 84443; 85025; 87086; 87088; 93005; 94640; 94668; 96361; 96365; 96366; 96372; 96375; 96376; 97161; 97166; 99221; 99285; Q9967; A4216; G0378